=== PATIENT | male | born 1955 | race Caucasian/White ===

== ENCOUNTER 2018-01-29 18:15 | Outpatient (REF) | payer BC, MEDICAID, SELFPAY ==
[2018-01-31 10:20] LABS: PSA, Screening 3.4 ng/ml (0-4.5)
== END 2018-01-29 18:35 ==
LOC: NCHCN 18:15
PROVIDERS: PCP Family Medicine; Visit Provider Family Medicine
DX: R35.1 Nocturia (principal); Z12.5 Encounter for screening for malignant neoplasm of prostate
CPT/HCPCS: 84153

== ENCOUNTER 2018-05-16 13:00 | Outpatient (REF) | payer MEDICAID, SELFPAY ==
[2018-05-16 21:41] LABS: Anion Gap 6.4 mmol/L (3-11); BUN 16 mg/dL (7-18); CO2 32.6 mmol/L (21.0-32.0); CREATININE 0.99 mg/dL (0.70-1.30); Calcium 9.1 mg/dL (8.5-10.1); Chloride 100 mmol/L (98-107); Cholesterol 296 mg/dL (50-200); Glucose 90 mg/dL (70-100); HDL Cholesterol 55 mg/dL (40-60); LDL CHOLESTEROL 216 mg/dL (<100); Potassium 3.7 mmol/L (3.5-5.1); Sodium 139 mmol/L (136-145); Triglyceride 130 mg/dL (30-150)
[2018-05-19 09:58] LABS: PSA, Screening 2.6 ng/ml (0-4.5)
== END 2018-05-16 13:20 ==
LOC: NCHCN 13:00
PROVIDERS: PCP Family Medicine; Visit Provider Family Medicine
DX: Z00.00 Encounter for general adult medical examination without abnormal findings (principal); Z12.5 Encounter for screening for malignant neoplasm of prostate; Z13.1 Encounter for screening for diabetes mellitus; Z13.6 Encounter for screening for cardiovascular disorders
CPT/HCPCS: 80048; 80061; 83721; 84153

== ENCOUNTER 2019-05-20 09:37 | Outpatient (REF) | payer MEDICAID, SELFPAY ==
[2019-05-20 21:33] LABS: ALT 34 U/L (16-63); AST 30 U/L (15-37); Albumin 4.5 g/dL (3.4-5.0); Alkaline Phosphatase 45 U/L (46-116); Anion Gap 5.7 mmol/L (3-11); BUN 20 mg/dL (7-18); Bilirubin, Total 0.5 mg/dL (0.2-1.0); CO2 33.3 mmol/L (21.0-32.0); CREATININE 0.96 mg/dL (0.70-1.30); Calcium 9.5 mg/dL (8.5-10.1); Calculated LDL 227 mg/dL (<100); Chloride 102 mmol/L (98-107); Cholesterol 310 mg/dL (<200); Glucose 54 mg/dL (74-106); HDL Cholesterol 50 mg/dL (40-60); Potassium 4.1 mmol/L (3.5-5.1); Sodium 141 mmol/L (136-145); Total Protein 7.7 g/dL (6.4-8.2); Triglyceride 169 mg/dL (<150)
[2019-05-22 10:06] LABS: PSA, Screening 2.6 ng/mL (0.0-4.5)
== END 2019-05-20 09:57 ==
LOC: NCHCN 09:37
PROVIDERS: PCP Family Medicine; Visit Provider Family Medicine
DX: R35.1 Nocturia (principal); Z12.5 Encounter for screening for malignant neoplasm of prostate; F10.10 Alcohol abuse, uncomplicated; Z00.00 Encounter for general adult medical examination without abnormal findings
CPT/HCPCS: 80053; 80061; 84153

== ENCOUNTER 2019-07-21 08:24 | Outpatient (REF) | payer MEDICAID, SELFPAY ==
[2019-07-21 20:49] LABS: ALT 44 U/L (16-63); AST 27 U/L (15-37); Albumin 4.4 g/dL (3.4-5.0); Alkaline Phosphatase 42 U/L (46-116); Anion Gap 5.4 mmol/L (3-11); BUN 17 mg/dL (7-18); Bilirubin, Total 0.4 mg/dL (0.2-1.0); CO2 30.6 mmol/L (21.0-32.0); CREATININE 1.02 mg/dL (0.70-1.30); Calcium 9.2 mg/dL (8.5-10.1); Calculated LDL 97 mg/dL (<100); Chloride 103 mmol/L (98-107); Cholesterol 173 mg/dL (<200); Glucose 89 mg/dL (74-106); HDL Cholesterol 51 mg/dL (40-60); Sodium 139 mmol/L (136-145); Total Protein 7.2 g/dL (6.4-8.2); Triglyceride 129 mg/dL (<150)
== END 2019-07-21 08:44 ==
LOC: NCHCN 08:24
PROVIDERS: PCP Family Medicine; Visit Provider Family Medicine
DX: E78.5 Hyperlipidemia, unspecified (principal)
CPT/HCPCS: 80053; 80061

== ENCOUNTER 2020-05-19 11:51 | Outpatient (REF) | payer MEDICAID, SELFPAY ==
[2020-05-19 14:18] LABS: ALT 45 U/L (16-63); AST 28 U/L (15-37); Albumin 4.1 g/dL (3.4-5.0); Alkaline Phosphatase 38 U/L (46-116); Anion Gap 8.7 mmol/L (3-11); BUN 22 mg/dL (7-18); Bilirubin, Total 0.6 mg/dL (0.2-1.0); CO2 28.3 mmol/L (21.0-32.0); Calcium 9.2 mg/dL (8.5-10.1); Calculated LDL 108 mg/dL (<100); Chloride 103 mmol/L (98-107); Cholesterol 188 mg/dL (<200); Glucose 81 mg/dL (74-106); HDL Cholesterol 64 mg/dL (40-60); Potassium 4.2 mmol/L (3.5-5.1); Sodium 140 mmol/L (136-145); Triglyceride 82 mg/dL (<150)
[2020-05-19 22:39] LABS: PSA, Screening 2.9 ng/mL (0.0-4.5)
== END 2020-05-19 11:52 | disposition home or self-care (01) ==
LOC: NCHCN 11:51
PROVIDERS: PCP Family Medicine; Visit Provider Family Medicine
DX: E78.5 Hyperlipidemia, unspecified (principal); F10.10 Alcohol abuse, uncomplicated; Z12.5 Encounter for screening for malignant neoplasm of prostate
CPT/HCPCS: 80053; 80061; 84153

== ENCOUNTER 2020-10-24 10:31 | Emergency (ER) | payer MEDICARE, OTHER, MEDICAID, SELFPAY ==
[2020-10-24 10:38] VITALS: BP 126/75; PULSE 69; RESP 14; TEMP 36.7; O2SAT 99
--- NOTE | 2020-10-24 10:45 | DI.RAD_ITS ---
Exam(s) XR RIBS LT W PA LAT CHEST CLINICAL HISTORY: left chest pain s/p fall. COMPARISON: No exams were available for comparison FINDINGS: LUNGS: Clear. No pleural abnormality seen. HEART: Normal. MEDIASTINUM: Normal. BONES: There is minimally displaced fracture of the left 10th rib.. No bony destructive lesion is se en. OTHER FINDINGS: None. IMPRESSION: 1. 10th rib fracture. 2. No acute pulmonary findings.
--- NOTE | 2020-10-24 10:50 | ED.GENADUL_ITS ---
Discharge Plan Disposition Patient Disposition: HOME Condition: Stable Discharge Details Clinical Impression: Fracture of rib Primary Care Provider: Jorge Pfeiffer ED Provider: Efren Curtis Home Meds and New Rx's Prescriptions: New oxycodone 5 mg tablet 5 mg PO Q6H PRNQty: 12 RF: 0 Continued atorvastatin 10 mg Tablet 10 mg PO DAILY RF: 0 escitalopram oxalate 5 mg Tablet 5 mg PO DAILY RF: 0 Discharge Instructions Instructions: Rib Fracture (ED) Additional Instructions: You broke the left 9th and 10th ribs follow up with your primary care provider within 1 week take 1000mg tylenol and 600mg ibuprofen every 6 hours as needed for pain, if you need additional pain relief take 1 oxycodone. Do not drink alcohol or drive if you take this medicine if you feel more ill, have difficulty breathing or fevers return to the emergency department Medical Decision Making 65 yo male with hx of hld denies being on anticoagulation comes in with left sided chest pain after a fall. He states yesterday he was in a canoe and his fishing pierce fell over, he went to grab it and fell striking his left chest in the mid axillary line on the side of the seat. Denies preceding pain to the fall. He still has pain over the 2-5 ribs in the mid axillary line on the left and is tender to touch in this area as well. He has no headpain, neck tenderness, abdomen tenderness. Clear lungs and no murmurs. Suspect rib contusion but will xray to evaluate for fracture and less likely ptx. xray shows likely left 9thand 10th rib fracture. No pneumothorax. Also noted tiny metallic density over lower thoracic wall but has no open areas of skin so do not feel this is an acute foreign body. HE is stable and is comfortable with outpatient management. Advised to f/u with pcp and return precautions given Differential Diagnosis Differential Diagnosis: contusion, fracture, pneumothorax Imaging Data Radiologic Study: Attestation: I personally reviewed and interpreted this imaging study as follows: Imaging: X-Ray Radiologist's impression: IMPRESSION: 1. Mild buckling of the left 10th rib worrisome for a minimally displaced rib fracture. Mild deformity of lateral left 9th rib may also be subtle fracture. Acuity is uncertain. Correlate with focal tenderness. If clinically indicated, CT scan can be obtained to better define. 2. Tiny metallic density projecting over the soft tissues of the lower thoracic wall. May be a small metallic foreign body within the soft tissues. HPI General Mode of arrival: ambulatory . Date/Time Provider Initiated Documentation: 10/24/20 10:45 . Limitations to Documentation: no limitations . Information obtained by: patient . History of Present Illness 65 year old M presents to the emergency department with the chief complaint of left sided chest pain s/p fall, described as moderate, Quality is described as aching, and is localized to the chest. Patient started experiencing this day(s) (1) and it has been constant. No relieving factors improve symptom(s), Other factors that worsen symptoms (pushing on the chest) . Patient notes no other symptoms.. Patient did receive the following treatments prior to arrival, none Related Data Home Medications Medication Instructions Recorded Confirmed atorvastatin 10 mg PO DAILY 10/24/20 10/24/20 escitalopram oxalate 5 mg PO DAILY 10/24/20 10/24/20 oxycodone 5 mg PO Q6H PRN #12 tab 10/24/20 Previous Rx's Medication Instructions Recorded oxycodone 5 mg PO Q6H PRN #12 tab 10/24/20 Allergies Allergy/AdvReac Type Severity Reaction Status Date / Time No Known Allergies Allergy Unverified 10/24/20 10:40 General Stated Complaint: Chest/Rib GAURAV: 3 Review of Systems All systems reviewed & are unremarkable except as noted in HPI and below Constitutional Constitutional: Denies chills, Denies fever(s) and Denies weakness Cardiovascular Cardiovascular: Denies dyspnea Respiratory Respiratory: Denies cough and Denies dyspnea Gastrointestinal Gastrointestinal: Denies abdominal pain, Denies nausea and Denies vomiting Musculoskeletal Musculoskeletal: Denies joint swelling Neurologic Neurologic: Denies weakness [facility] Social History Smoking/Tobacco Use Status: Never Smoking risk assessment performed?: Yes Alcohol Intake: current Alcohol Intake frequency: 0-2 drinks per day Alcohol type: beer Drug use: Never Substance use type: does not use Do you feel safe at home: Yes Do you feel safe in your relationship?: Yes Exam Const General: no acute distress Orientation: alert HENMT Head: normal to inspection Ears: external ears normal General nose exam: external nose normal Mouth: moist mucous membranes Eyes General: appearance normal, both eyes and all related structures Neck Neck: normal visual inspection Chest Chest: normal inspection of the chest Resp Effort & Inspection: normal respiratory effort and able to speak in complete sentences Cardio Rate: regular rate Skin General skin exam: no rashes or lesions noted Neuro General: patient alert and patient oriented x3 Extrem General: normal to inspection Psych Mental Status: mental status grossly normal Course Vital Signs Vital signs: Vital Signs Temperature 36.7 C 10/24/20 10:38 Pulse 69 10/24/20 10:38 Respiratory Rate 14 10/24/20 10:38 Blood Pressure 126/75 10/24/20 10:38 Pulse Oximetry 99 10/24/20 10:38 Temperature 36.7 C 10/24/20 10:38 Temperature Source Skin 10/24/20 10:38 Pulse 69 10/24/20 10:38 Respiratory Rate 14 10/24/20 10:38 Respiratory Effort Non-Labored 10/24/20 10:43 Respiratory Depth Normal 10/24/20 10:43 Respiratory Pattern Normal 10/24/20 10:43 Blood Pressure 126/75 10/24/20 10:38 Blood Pressure Position Supine 10/24/20 10:38 Pulse Oximetry 99 10/24/20 10:38 Oxygen Delivery Method Room Air 10/24/20 10:38 Oxygen Flow Rate 0 10/24/20 10:38 Pain Level 7 10/24/20 10:43
[2020-10-24] MEDS: Ibuprofen 600 MG TAB PO (10:54)
--- NOTE | 2020-10-24 11:31 | DI.VRAD_ITS ---
PROCEDURE INFORMATION: Exam: XR Left Ribs Exam date and time: 10/24/2020 10:52 AM Age: 65 years old Clinical indication: Injury or trauma; Blunt trauma (contusions or hematomas); Rib area, left side; Injury details: Fall. Bb placed on site of pain - lt - ant TECHNIQUE: Imaging protocol: XR Left ribs. Views: 2 views. COMPARISON: No relevant prior studies available. FINDINGS: Bones/joints: Mild buckling of the left 10th rib worrisome for a minimally displaced rib fracture. Mild deformity of the lateral left 9th rib. Soft tissues: Tiny metallic density projecting over the soft tissues of the lower thoracic wall. IMPRESSION: 1. Mild buckling of the left 10th rib worrisome for a minimally displaced rib fracture. Mild deformity of lateral left 9th rib may also be subtle fracture. Acuity is uncertain. Correlate with focal tenderness. If clinically indicated, CT scan can be obtained to better define. 2. Tiny metallic density projecting over the soft tissues of the lower thoracic wall. May be a small metallic foreign body within the soft tissues. PROCEDURE INFORMATION: Exam: XR Chest Exam date and time: 10/24/2020 10:52 AM Age: 65 years old Clinical indication: Injury or trauma; Blunt trauma (contusions or hematomas); Rib area, left side; Injury details: Fall. Bb placed on site of pain - lt - ant TECHNIQUE: Imaging protocol: XR of the chest. Views: 2 views. COMPARISON: No relevant prior studies available. FINDINGS: Lungs: Dense 6 mm nodule at the right base, probably a granuloma. No airspace consolidations. Pleural spaces: No significant pleural effusions. No pneumothorax. Heart/Mediastinum: Cardiomediastinal silhouette is unremarkable. Bones/joints: Mild dextroconvexity of the upper thoracic spine which may be related to mild scoliosis. Mild multilevel spondylosis. Mild buckling of the left 10th rib worrisome for a minimally displaced rib fracture. IMPRESSION: 1. No acute pulmonary disease. 2. Dense right base nodule, probably a granuloma. 3. See separately dictated rib radiographs report. Dictated and Authenticated by: Leandro Walker MD. Ordering:STORM Schwartz MD
== END 2020-10-24 12:01 | disposition home or self-care (01) ==
PROVIDERS: Emergency Provider Emergency Medicine; PCP Family Medicine
DX: S22.42XA Multiple fractures of ribs, left side, initial encounter for closed fracture (principal); W01.198A Fall on same level from slipping, tripping and stumbling with subsequent striking against other object, initial encounter
CPT/HCPCS: 99283; 71046; 71100

== ENCOUNTER 2021-05-23 14:43 | Outpatient (REF) | payer MEDICARE, OTHER, MEDICAID, SELFPAY ==
[2021-05-23 17:25] LABS: ALT 34 U/L (16-63); AST 23 U/L (15-37); Albumin 4.1 g/dL (3.4-5.0); Alkaline Phosphatase 41 U/L (46-116); Anion Gap 7.7 mmol/L (3-11); BUN 18 mg/dL (7-18); Bilirubin, Total 0.5 mg/dL (0.2-1.0); CO2 29.3 mmol/L (21.0-32.0); CREATININE 0.9 mg/dL (0.70-1.30); Calcium 8.9 mg/dL (8.5-10.1); Chloride 105 mmol/L (98-107); Glucose 89 mg/dL (74-106); Potassium 4.3 mmol/L (3.5-5.1); Sodium 142 mmol/L (136-145); Total Protein 6.9 g/dL (6.4-8.2)
[2021-05-24 17:39] LABS: PSA, Screening 3.1 ng/mL (<=4.5)
== END 2021-05-23 14:44 | disposition home or self-care (01) ==
LOC: NCHCN 14:43
PROVIDERS: PCP Family Medicine; Visit Provider Family Medicine
DX: E78.5 Hyperlipidemia, unspecified (principal); R35.1 Nocturia; Z12.5 Encounter for screening for malignant neoplasm of prostate
CPT/HCPCS: 80053; 84153

== ENCOUNTER 2022-05-24 10:16 | Outpatient (REF) | payer MEDICARE, SELFPAY ==
[2022-05-24 15:11] LABS: ALT 37 U/L (16-63); AST 30 U/L (15-37); Alkaline Phosphatase 57 U/L (46-116); BUN 19 mg/dL (7-18); Bilirubin, Total 0.3 mg/dL (0.2-1.0); CREATININE 0.9 mg/dL (0.70-1.30); Calcium 9.3 mg/dL (8.5-10.1); Calculated LDL 90 mg/dL (<100); Chloride 104 mmol/L (98-107); Cholesterol 174 mg/dL (<200); Estimated GFR 93.61 (mL/min/1.73m2); Glucose 87 mg/dL (74-106); HDL Cholesterol 64 mg/dL (40-60); Potassium 4.3 mmol/L (3.5-5.1); Sodium 143 mmol/L (136-145); Total Protein 7.6 g/dL (6.4-8.2); Triglyceride 102 mg/dL (<150)
[2022-05-24 22:55] LABS: PSA, Screening 4.8 ng/mL (<=4.5)
== END 2022-05-24 10:17 | disposition home or self-care (01) ==
LOC: NCHCN 10:16
PROVIDERS: PCP Family Medicine; Visit Provider Family Medicine
DX: E78.5 Hyperlipidemia, unspecified (principal); N40.0 Benign prostatic hyperplasia without lower urinary tract symptoms; Z12.5 Encounter for screening for malignant neoplasm of prostate
CPT/HCPCS: 80053; 80061; 84153

== ENCOUNTER 2022-06-06 01:49 | Outpatient (CLI) | payer MEDICARE, SELFPAY ==
--- NOTE | 2022-06-06 08:00 | DI.US_ITS ---
Exam(s) US AAA SCREENING EXAM: US AAA SCREENING CLINICAL HISTORY: [facility], Z00.00 COMPARISON: No exams were available for comparison FINDINGS: Abdominal Aorta: Proximal: 2.9 x 2.9 cm Mid: 2.1 x 2.1 cm Distal: 1.9 x 1.4 cm Iliac's: Right: 1.1 x 1.5 cm Left: 1 x 1 cm No significant atherosclerotic disease is seen. IMPRESSION: No evidence of abdominal aortic aneurysm. DATA REPOSITORY:
== END 2022-06-06 02:09 ==
LOC: DI 01:49
PROVIDERS: PCP Family Medicine; Visit Provider Family Medicine
DX: Z00.00 Encounter for general adult medical examination without abnormal findings (principal)
CPT/HCPCS: 76706

== ENCOUNTER 2022-06-20 15:30 | Outpatient (REF) | payer MEDICARE, SELFPAY ==
--- OUTSIDE RECORDS SUMMARY | 2022-06-20 15:35 | XMS_ITS | CCD ---
Author Name Unknown Address [address] [place] [address] [id number] Organization Unknown Address [address] [place] [address] [phone] Care Team Providers Care Itinerant Teacher Assistant Name Role Phone TRINA STREETER Attending Physician [phone] Rounding (Secondary) Physic milton [phone] Vital Signs Unknown or Not Available. Allergies Allergy Code Allergy Type Reaction Status No Known Allergies 0 No known allergies Active Procedures Unknown or Not Available. History of Immunizations Unknown or Not Available. Problems Unknown or Not Available. Results Unknown or Not Available. Active Medications Unknown or Not Available. Medications Administered During Visit Unknown or Not Available. Encounters Encounter Diagnosis Diagnosis Code Start Date Injury of tendon of the rotator cuff of shoulder [id number] 01/09/2022 Social History Smoking Status Code Start Date End Date Never smoker [id number] Patient Decision Aids Unknown or Not Available. Discharge Instructions You were admitted to [facility] on 01/09/2022 09:16 with a principal diagnosis of Unspecified injury of muscle(s) and tendon(s) of the rotator cuff of left shoulder, initial encounter You were discharged from [facility] on 01/09/2022 00:00 Should you have any questions prior to discharge, please contact a member of your healthcare team. If you have left the hospital and have any questions, please contact your primary care physician. Chief Complaint and Reason For Visit Unknown or Not Available. Function Status Unknown or Not Available. Plan of Care Unknown or Not Available. Referral/Transition of Care Unknown or Not Available.
--- OUTSIDE RECORDS SUMMARY | 2022-06-20 15:35 | XMS_ITS | CCD ---
Author Name Unknown Address [address] [place] [address] [id number] Organization Unknown Address [address] [place] [address] [phone] Care Team Providers Care Supervisor Long Goods Name Role Phone MARY VANESSA Attending Physician [phone] MARY VANESSA Rounding (Secondary) Physician [phone] Vital Signs Unknown or Not Available. Allergies [...] Encounters Encounter Diagnosis Diagnosis Code Start Date Full thickness rotator cuff tear [id number] 03/23/2022 Social History Smoking Status Code Start Date End Date Never smoker [id number] Patient Decision Aids Unknown or Not Available. Discharge Instructions You were admitted to [facility] on 03/23/2022 00:33 with a principal diagnosis of Complete rotator cuff tear or rupture of left shoulder, not specified as traumatic You were discharged from [facility] on 03/23/2022 00:34 Should you have any questions prior to [...]
--- OUTSIDE RECORDS SUMMARY | 2022-06-20 15:35 | XMS_ITS | CCD ---
Author Name Unknown Address [address] [place] [address] [phone] Organization Unknown Address [address] [place] [address] [phone] Care Team Providers Care Senior Javascript Developer Name Role Phone TRINA STREETER Attending Physician [phone] Vital Signs Unknown or Not Available. Allergies [...] Encounters Encounter Diagnosis Diagnosis Code Start Date Complete rotator cuff tear o r rupture of left shoulder, not specified as traumatic [id number] 01/26/2022 Social History Smoking Status Code Start Date End Date Never smoker [id number] Patient Decision Aids Unknown or Not Available. Discharge Instructions You were admitted to [facility] on 01/26/2022 08:40 with a principal diagnosis of Complete rotator cuff tear or rupture of left shoulder, not specified as traumatic You were discharged from [facility] on 01/26/2022 08:40 Should you have any questions prior to discharge, please contact a member of your healthcare team. If you have left the hospital and have any questions, please contact your primary care physician. Chief Complaint and Reason For Visit Chief Complaint Date of Onset LT SHOULDER PAIN Function Status Unknown or Not Available. Plan of Care Unknown or Not Available. Referral/Transition of Care Unknown or Not Available.
--- OUTSIDE RECORDS SUMMARY | 2022-06-20 15:35 | XMS_ITS | CCD ---
Author Name Unknown Address [address] [place] [address] [id number] Organization Unknown Address [address] [place] [address] [phone] Care Team Providers Care Elementary Tutor Name Role Phone MARY VANESSA Attending Physician [phone] MARY VANESSA Rounding (Secondary) Physician [phone] Vital Signs Unknown or Not Available. Allergies [...] Start Date Full thickness rotator cuff tear [id number] 01/30/2022 Social History Smoking Status Code Start Date End Date Never smoker [id number] Patient Decision Aids Unknown or Not Available. Discharge Instructions You were admitted to [facility] on 01/30/2022 08:54 with a principal diagnosis of Complete rotator cuff tear or rupture of left shoulder, not specified as traumatic You were discharged from [facility] on 01/30/2022 00:00 Should you have any questions prior [...]
--- OUTSIDE RECORDS SUMMARY | 2022-06-20 15:35 | XMS_ITS | CCD ---
Author Name Unknown Address [address] [place] [address] [id number] Organization Unknown Address [address] [place] [address] [id number] Care Team Providers Care Electric Golf Cart Repairer Name Role Phone MARY VANESSA Attending Physician [phone] Vital Signs Vital Sign Value Unit Date/Time Recent/Initial ? BMI (Body Mass Index) 23.87 kg/m^2 03/09/2022 09: 34 Initial VS Weight Measured 164 lbs 03/09/2022 09:34 Ini tial VS Height 69.5 in 03/09/2022 09:34 Initial VS BSA (Body Surface Area) 1.91 m^2 03/09/2022 0 9:34 Initial VS BP Systolic 111 mmHg 03/23/2022 17:58 Initial VS BP Diastolic 72 mmHg 03/23/2022 17:58 Initia l VS Respiratory Rate 16 bpm 03/23/2022 17:58 In itial VS Heart Rate 72 bpm 03/23/2022 17:58 Initial VS O2 % BldC Oximetry 100 % 03/23/2022 17:58 Initial VS Body Temperature 36.1 degrees 03/23/2022 17:58 In itial VS Allergies Allergy Code Allergy Type Reaction Status No Known Allergies 0 No known allergies Active Procedures Procedure Code Procedure Type Date Repair, Ruptured Musculotendinous Cuff; Chronic 29110 CPT 03/23/2022 Injection Anesthetic Agent a nd/or Steroid; Brachial Plexus Including Imaging Guidance When Performed 10440 CPT 03/23/2022 Anesthesia, Nerves/Muscles/T endons/Fascia & Bursae, Shoulder/Axilla 62038 CPT 03/23/2022 History of Immunizations Unknown or Not Available. Problems Unknown or Not Available. Results Unknown or Not Available. Active Medications Medication Code Dose Units Frequency Route Modificatio n Start Date/Time ONDANSETRON INJ SDV: 4MG/2ML 2269791 4 MG PRN IN PACU X1 IVP 12:18 Medications Administered During Visit Medication Dose Units Frequency Route Date/Time of Last Dose LACTATED RINGERS 1000ML 1000 ML X1 IV 03/23/2022 09:19 CeFAZolin IVPB FROZEN PREMIX : 2GM/100ML 2 GM X1 IVPB 03/23/2022 09:4 0 MIDAZOLAM INJ SDV: 2MG/2ML 2 MG X1 IVP 03/23/2022 09:11 MIDAZOLAM INJ SDV: 2MG/2ML 2 MG X1 IVP 03/23/2022 09:12 ACETAMINOPHEN INJ IVPB: 1000MG/100ML 1000 MG PRN IN PACU X1 IVPB 03/23/2022 12 :30 Encounters Encounter Diagnosis Diagnosis Code Start Date Complete rotator cuff tear o r rupture of left shoulder, not specified as traumatic [id number] 03/23/2022 Social History Smoking Status Code Start Date End Date Never smoker [id number] Patient Decision Aids Unknown or Not Available. Discharge Instructions You were admitted to [facility] on 03/23/2022 07:29 with a principal diagnosis of Complete rotator cuff tear or rupture of left shoulder, not specified as traumatic You had the following procedures done:Repair, Ruptured Musculotendinous Cuff; ChronicInjection Anesthetic Agent and/or Steroid; Brachial Plexus Including Imaging Guidance When PerformedAnesthesia, Nerves/Muscles/Tendons/Fascia & Bursae, Shoulder/Axilla You were discharged from [facility] on 03/23/2022 14:45 Should you have any questions prior to [...]
--- OUTSIDE RECORDS SUMMARY | 2022-06-20 15:36 | XMS_ITS | CCD ---
Author Name Unknown Address [address] [place] [address] [id number] Organization Unknown Address [address] [place] [address] [id number] Care Team Providers Care Head Refrigeration Engineer Name Role Phone MARY VANESSA Attending Physician [phone] MARY VANESSA Rounding (Secondary) Physician [phone] Vital Signs Unknown or Not Available. Allergies [...] Encounters Encounter Diagnosis Diagnosis Code Start Date Follow-up orthopedic assessment [id number] 05/01/2022 Social History Smoking Status Code Start Date End Date Never smoker [id number] Patient Decision Aids Unknown or Not Available. Discharge Instructions You were admitted to [facility] on 05/01/2022 00:00 with a principal diagnosis of Encounter for other orthopedic aftercare You were discharged from [facility] on 05/01/2022 00:00 Should you have any questions prior [...]
--- OUTSIDE RECORDS SUMMARY | 2022-06-20 15:36 | XMS_ITS | CCD ---
Author Name Unknown Address [address] [place] [address] [id number] Organization Unknown Address [address] [place] [address] [phone] Care Team Providers Care Drier Belt Conveyor Name Role Phone ILAN FERNANDEZ, VANE Judge Attending Physician [phone] ELIZABETH GALEANO Er Physician [phone] Vital Signs Unknown or Not Available. Allergies Allergy Code Allergy Type Reaction Status No Known Allergies 0 No known allergies Active Procedures Unknown or Not Available. History of Immunizations Unknown or Not Available. Problems Problem Code Start Date Resolved Date Status Depression [id number] 12/27/2021 Resolved Hypertension 04370104 12/27/2021 Resolved Results Unknown or Not Available. Active Medications Unknown or Not Available. Medications Administered During Visit Unknown or Not Available. Encounters Encounter Diagnosis Diagnosis Code Start Date Other chest pain R0789 08/27/2020 Social History Smoking Status Code Start Date End Date Never smoker [id number] Patient Decision Aids Unknown or Not Available. Discharge Instructions You were admitted to on 08/27/2020 13:55 with a principal diagnosis of Other chest pain You were discharged from on 08/27/2020 14:53 Should you have any questions prior to discharge, please contact a member of your healthcare team. If you have left the hospital and have any questions, please contact your primary care physician. Chief Complaint and Reason For Visit Chief Complaint Date of Onset RT RIB PAIN Function Status Unknown or Not Available. Plan of Care Unknown or Not Available. Referral/Transition of Care Unknown or Not Available.
--- OUTSIDE RECORDS SUMMARY | 2022-06-20 15:36 | XMS_ITS | CCD ---
Author Name Unknown Address [address] [place] [address] [id number] Organization Unknown Address [address] [place] [address] [id number] Care Team Providers Care Dispatcher Clerk Name Role Phone RENZO FERNANDEZ, RUSS Diaz Attending Physician [phone] Vital Signs Vital Sign Value Unit Date/Time Recent/Initial ? BP Systolic 107 mmHg 09/20/2020 12:54 Initial VS BP Diastolic 78 mmHg 09/20/2020 12:54 Initia l VS Respiratory Rate 16 bpm 09/20/2020 12:54 In itial VS Heart Rate 70 bpm 09/20/2020 12:54 Initial VS O2 % BldC Oximetry 97 % 09/20/2020 12:54 Initial VS BP Systolic 124 mmHg 09/20/2020 13:14 Most Re cent VS BP Diastolic 74 mmHg 09/20/2020 13:14 Most R ecent VS Respiratory Rate 16 bpm 09/20/2020 13:[address] Recent VS Heart Rate 71 bpm 09/20/2020 13:14 Most Rec ent VS O2 % BldC Oximetry 100 % 09/20/2020 13:14 Most Recent VS Allergies Allergy Code Allergy Type Reaction Status No Known Allergies 0 No known allergies Active Procedures Procedure Code Procedure Type Date Colsc Flx w/[place] [address] CPT 09/20/2020 History of Immunizations Unknown or Not Available. Problems Problem Code Start Date Resolved Date Status Depression 07199511 12/27/2021 Resolved Hypertension 13067950 12/27/2021 Resolved Results Unknown or Not Available. Active Medications Unknown or Not Available. Medications Administered During Visit Unknown or Not Available. Encounters Encounter Diagnosis Diagnosis Code Start Date Encounter for screening for malignant neoplasm o f colon Z1211 09/20/2020 Social History Smoking Status Code Start Date End Date Never smoker [id number] Patient Decision Aids Unknown or Not Available. Discharge Instructions You were admitted to [facility] 01 on 09/20/2020 10:25 with a principal diagnosis of Encounter for screening for malignant neoplasm of colon You had the following procedures done:Colsc Flx w/Rmvl Of Tumor Polyp Lesion Snare Tq You were discharged from [facility] on 09/20/2020 13:15 Should you have any questions prior to [...]
== END 2022-06-20 15:31 | disposition home or self-care (01) ==
LOC: NCHCN 15:30
PROVIDERS: PCP Family Medicine; Visit Provider Family Medicine
DX: N40.0 Benign prostatic hyperplasia without lower urinary tract symptoms (principal)
CPT/HCPCS: 84153

== ENCOUNTER → 2022-07-26 14:07 | Outpatient (BNVA) | payer MEDICARE, SELFPAY | PROVIDERS: PCP Family Medicine; Referring Provider Family Medicine; Visit Provider Nurse Practitioner Gerontology | DX: R97.20 Elevated prostate specific antigen [PSA] (principal); N40.1 Benign prostatic hyperplasia with lower urinary tract symptoms; R35.1 Nocturia | CPT/HCPCS: 51798; 99214 ==

== ENCOUNTER 2022-09-06 17:17 | Outpatient (REF) | payer MEDICARE, SELFPAY ==
[2022-09-06 21:17] LABS: Abs Immature Grans 0.02 10^3/uL (0.0-0.06); Absolute Basophil Count 0.04 10^3/uL (0.0-0.2); Absolute Eosinophil Count 0.07 10^3/uL (0.0-0.7); Absolute Lymphocyte Count 1.43 10^3/uL (1.2-3.4); Absolute Monocyte Count 0.94 10^3/uL (0.1-0.8); Absolute Neutrophil Count 5.12 10^3/uL (1.2-6.7); Basophils % 0.5; Eosinophils % 0.9; HCT 41.1 % (40.0-50.0); HGB 13.7 g/dL (13.5-17.5); Immature Grans % 0.3; Lymphocytes % 18.8; MCH 30.6 pg (27.0-33.0); MCHC 33.3 % (32.0-36.0); MCV 92 fL (80-95); MPV 10.4 fL (8.0-11.0); Monocytes % 12.3; Neutrophils % 67.2; Platelet Count 260 10^3/uL (130-400); RBC 4.48 10^6/uL (4.36-5.78); RDW 13.2 % (11.8-14.1); RDW-SD 44.8 fL; WBC 7.62 10^3/uL (4.4-10.8)
[2022-09-06 21:37] LABS: Anion Gap 5.9 mmol/L (3-11); BUN 15 mg/dL (7-18); CO2 30.1 mmol/L (21.0-32.0); CREATININE 0.9 mg/dL (0.70-1.30); Calcium 9.2 mg/dL (8.5-10.1); Chloride 108 mmol/L (98-107); Estimated GFR 93.61 (mL/min/1.73m2); Glucose 97 mg/dL (74-106); Sodium 144 mmol/L (136-145); TSH (W/Ref FT4) 1.65 uIU/mL (0.36-3.74)
[2022-09-10 09:16] LABS: Lyme Ab w Rflx to Lyme Confirm Negative (Negative)
[2022-09-11 15:39] LABS: Anaplasma phagocytophilum Negative (Negative); B. miyamotoi PCR Negative (Negative); Babesia divergens/MO-1 Negative (Negative); Babesia duncani Negative (Negative); Babesia microti Negative (Negative); Ehrlichia chaffeensis Negative (Negative); Ehrlichia ewingii/canis Negative (Negative); Ehrlichia muris eauclairensis Negative (Negative)
== END 2022-09-06 17:18 | disposition home or self-care (01) ==
LOC: NCHCN 17:17
PROVIDERS: PCP Family Medicine; Visit Provider Family Medicine
DX: R53.83 Other fatigue (principal); M06.4 Inflammatory polyarthropathy; M79.10 Myalgia, unspecified site
CPT/HCPCS: 80048; 87798; 84443; 85025; 86618

== ENCOUNTER 2022-10-31 20:17 | Outpatient (REF) | payer MEDICARE, SELFPAY ==
[2022-10-31 21:15] LABS: ESR 9 mm/hr (0-20)
[2022-10-31 21:17] LABS: ALT 27 U/L (16-63); AST 20 U/L (15-37); Albumin 3.6 g/dL (3.4-5.0); Alkaline Phosphatase 52 U/L (46-116); Anion Gap 4.4 mmol/L (3-11); BUN 17 mg/dL (7-18); Bilirubin, Total 0.7 mg/dL (0.2-1.0); C-Reactive Protein 1.99 mg/dL (0.0-0.3); CO2 32.6 mmol/L (21.0-32.0); Calcium 9.4 mg/dL (8.5-10.1); Chloride 104 mmol/L (98-107); Estimated GFR 82.49 (mL/min/1.73m2); Glucose 116 mg/dL (74-106); Potassium 3.9 mmol/L (3.5-5.1); Sodium 141 mmol/L (136-145); Total Protein 7.2 g/dL (6.4-8.2)
== END 2022-10-31 20:18 | disposition home or self-care (01) ==
LOC: NCHCN 20:17
PROVIDERS: PCP Family Medicine; Visit Provider Family Medicine
DX: M35.3 Polymyalgia rheumatica (principal); R74.01 Elevation of levels of liver transaminase levels
CPT/HCPCS: 80053; 85652; 86140

== ENCOUNTER 2022-11-30 13:25 | Outpatient (REF) | payer MEDICARE, SELFPAY ==
[2022-11-30 21:13] LABS: C-Reactive Protein 0.27 mg/dL (0.0-0.3)
[2022-12-05 14:07] LABS: ESR (LRH) 2 mm/hr
== END 2022-11-30 13:26 | disposition home or self-care (01) ==
LOC: NCHCN 13:25
PROVIDERS: PCP Family Medicine; Visit Provider Family Medicine
DX: M35.3 Polymyalgia rheumatica (principal)
CPT/HCPCS: 85652; 86140

== ENCOUNTER 2023-01-24 04:03 | Outpatient (CLI) | payer MEDICARE, SELFPAY ==
--- OUTSIDE RECORDS SUMMARY | 2023-01-24 04:04 | XMS_ITS | CCD ---
Author Name Unknown Address [address] [place] [address] [phone] Organization Unknown Address [address] [place] [address] [phone] Care Team Providers Care Enrollment Management Manager Name Role Phone MARY VANESSA Attending Physician [phone] MARY VANESSA Rounding (Secondary) Physician [phone] Vital Signs Unknown or Not Available. Allergies [...] Encounters Encounter Diagnosis Diagnosis Code Start Date Pain in left shoulder V35945 11/06/2022 Social History Smoking Status Code Start Date End Date Never smoker [id number] Patient Decision Aids Unknown or Not Available. Discharge Instructions You were admitted to [facility] on 11/06/2022 16:20 with a principal diagnosis of Pain in left shoulder You were discharged from [facility] on 11/06/2022 14:25 Should you have any questions prior to [...]
--- OUTSIDE RECORDS SUMMARY | 2023-01-24 04:05 | XMS_ITS | CCD ---
Author Name Unknown Address [address] [place] [address] [phone] Organization Unknown Address [address] [place] [address] [phone] Care Team Providers Care Electric Scoop Operator Name Role Phone MARY VANESSA Attending Physician [phone] MARY VANESSA Rounding (Secondary) Physician [phone] Vital Signs Unknown or Not Available. Allergies [...] Start Date Full thickness rotator cuff tear [id number] 03/23/2022 Social History Smoking Status Code Start Date End Date Never smoker [id number] Patient Decision Aids Unknown or Not Available. Discharge Instructions You were admitted to [facility] on 03/23/2022 00:33 with a principal diagnosis of Complete rotator cuff tear or rupture of left shoulder, not specified as traumatic You were discharged from [facility] on 03/23/2022 00:34 Should you have any [...]
--- OUTSIDE RECORDS SUMMARY | 2023-01-24 04:05 | XMS_ITS | CCD ---
Author Name Unknown Address [address] [place] [address] [phone] Organization Unknown Address [address], [place] [phone] Care Team Providers Care Grocery Buyer Name Role Phone MARY VANESSA Attending Physician [phone] MARY VANESSA Rounding (Secondary) Physician [phone] Vital Signs Unknown or Not Available. Allergies [...] Encounters Encounter Diagnosis Diagnosis Code Start Date Postprocedural state finding [id number] Social History Smoking Status Code Start Date End Date Never smoker [id number] Patient Decision Aids Unknown or Not Available. Discharge Instructions You were admitted to [facility] on 07/31/2022 00:00 with a principal diagnosis of Other specified postprocedural states You were discharged from [facility] on 07/31/2022 00:00 Should you have any questions prior [...]
--- OUTSIDE RECORDS SUMMARY | 2023-01-24 04:05 | XMS_ITS | CCD ---
Author Name Unknown Address [address] [place] [address] [phone] Organization Unknown Address [address] [place] [address] [phone] Care Team Providers Care Optics Engineer Name Role Phone MARY VANESSA Attending Physician [phone] Vital Signs Vital Sign Value Unit Date/Time [...] Type Date Repair, Ruptured Musculotendinous Cuff; Chronic 66531 CPT 03/23/2022 Injection Anesthetic Agent a nd/or Steroid; Brachial Plexus Including Imaging Guidance When Performed 77514 CPT 03/23/2022 Anesthesia, Nerves/Muscles/T endons/Fascia & Bursae, Shoulder/Axilla 11178 CPT 03/23/2022 History of Immunizations Unknown or Not Available. Problems Unknown or Not Available. Results Unknown or Not Available. Active Medications Medications Administered During Visit Medication Dose Units Frequency Route Date/Time of Last Dose LACTATED RINGERS 1000ML 1000 ML X1 03/23/2022 09:19 CeFAZolin IVPB FROZEN PREMIX : 2GM/100ML 2 GM X1 03/23/2022 09:4 0 MIDAZOLAM INJ SDV: 2MG/2ML 2 MG X1 IVP 03/23/2022 09:11 MIDAZOLAM INJ SDV: 2MG/2ML 2 MG X1 IVP 03/23/2022 09:12 ACETAMINOPHEN INJ IVPB: 1000MG/100ML 1000 MG PRN IN PACU X1 03/23/2022 12 :30 Encounters Encounter Diagnosis Diagnosis Code Start Date Complete rotator cuff tear o r rupture of left shoulder, not specified as traumatic [id number] 03/23/2022 Social History Smoking Status Code Start Date End Date Never smoker [id number] Patient Decision Aids Unknown or Not Available. Discharge Instructions You were admitted to [facility] on 03/23/2022 07:29 with a principal diagnosis of Complete rotator cuff tear or rupture of left shoulder, not specified as traumatic You had the following procedures done:Repair, Ruptured Musculotendinous Cuff; ChronicInjection Anesthetic Agent and/or Steroid; Brachial Plexus Including Imaging Guidance When PerformedAnesthesia, Nerves/Muscles/Tendons/Fascia & Bursae, Shoulder/Axilla You were discharged from [facility] on 03/23/2022 14:45 Should you have any [...]
--- OUTSIDE RECORDS SUMMARY | 2023-01-24 04:06 | XMS_ITS | CCD ---
Author Name Unknown Address [address] [place] [address] [phone] Organization Unknown Address [address] [place] [address] [phone] Care Team Providers Care Vocational Rehab Consultant Name Role Phone MARY VANESSA Attending Physician [phone] MARY VANESSA Rounding (Secondary) Physician [phone] Vital Signs Unknown or Not Available. Allergies [...] Start Date Full thickness rotator cuff tear 284345055 01/30/2022 Social History Smoking Status Code Start Date End Date Never smoker 994695917 Patient Decision Aids Unknown or Not Available. Discharge Instructions You were admitted to [facility] on 01/30/2022 08:54 with a principal diagnosis of Complete rotator cuff tear or rupture of left shoulder, not specified as traumatic You were discharged from [facility] on 01/30/2022 00:00 Should you have [...]
--- OUTSIDE RECORDS SUMMARY | 2023-01-24 04:06 | XMS_ITS | CCD ---
Author Name Unknown Address [address] [place] [address] [phone] Organization Unknown Address [address] [place] [address] [phone] Care Team Providers Care Geothermal Heat Pump Machinist Name Role Phone RENZO FERNANDEZ, RUSS Diaz Attending Physician [phone] Vital Signs Vital Sign Value Unit Date/Time [...] w/[place] [address] CPT 09/20/2020 History of Immunizations Unknown or Not Available. Problems Problem Code Start Date Resolved Date Status Depression 99770439 12/27/2021 Resolved Hypertension 30700493 12/27/2021 Resolved Results Unknown or Not Available. Active Medications Unknown or Not Available. Medications Administered During Visit Unknown or Not Available. Encounters Encounter Diagnosis Diagnosis Code Start Date Encounter for screening for malignant neoplasm o f colon Z1211 09/20/2020 Social History Smoking Status Code Start Date End Date Never smoker 533176035 Patient Decision Aids Unknown or Not Available. Discharge Instructions You were admitted to [facility] 01 on 09/20/2020 10:25 with a principal diagnosis of Encounter for screening for malignant neoplasm of colon You had the following procedures done:Colsc Flx w/Rmvl Of Tumor Polyp Lesion Snare Tq You were discharged from [facility] on 09/20/2020 13:15 Should you have any [...]
--- OUTSIDE RECORDS SUMMARY | 2023-01-24 04:06 | XMS_ITS | CCD ---
Author Name Unknown Address [address] [place] [address] [phone] Organization Unknown Address [address] [place] [address] [phone] Care Team Providers Care Grocery Clerk Selling Name Role Phone FERMÍN VALLE Attending Physician [phone] SORAYA CLIFFORD Er Physician [phone] DONNA Coombs Registered Nurse [phone] Vital Signs Vital Sign Value Unit Date/Time Recent/Initial ? BMI (Body Mass Index) 20.34 kg/m^2 12/27/2021 16: 07 Initial VS Weight Measured 150 lbs 12/27/2021 16:07 Ini tial VS Height 72 in 12/27/2021 16:07 Initial VS BSA (Body Surface Area) 1.86 m^2 12/27/2021 1 6:07 Initial VS BP Systolic 146 mmHg 12/27/2021 16:07 Initial VS BP Diastolic 75 mmHg 12/27/2021 16:07 Initia l VS Respiratory Rate 16 bpm 12/27/2021 16:07 In itial VS Heart Rate 72 bpm 12/27/2021 16:07 Initial VS O2 % BldC Oximetry 97 % 12/27/2021 16:07 Initial VS Body Temperature 36.7 degrees 12/27/2021 16:07 In itial VS BP Systolic 131 mmHg 12/27/2021 17:58 Most Re cent VS BP Diastolic 80 mmHg 12/27/2021 17:58 Most R ecent VS Respiratory Rate 18 bpm 12/27/2021 17:[address] Recent VS Heart Rate 65 bpm 12/27/2021 17:58 Most Rec ent VS O2 % BldC Oximetry 97 % 12/27/2021 17:58 Most Recent VS Allergies Allergy Code Allergy Type Reaction Status No Known Allergies 0 No known allergies Active Procedures Unknown or Not Available. History of Immunizations Unknown or Not Available. Problems Problem Code Start Date Resolved Date Status Depression 06030985 12/27/2021 Resolved Hypertension 25837679 12/27/2021 Resolved Results Unknown or Not Available. Active Medications Medications Administered During Visit Medication Dose Units Frequency Route Date/Time of Last Dose ACETAMINOPHEN TABLET: 325MG 975 MG X1 PO 12/27/2021 17:57 Encounters Encounter Diagnosis Diagnosis Code Start Date Unspecified dislocation of l eft shoulder joint, initial encounter [id number] 12/27/2021 Social History Smoking Status Code Start Date End Date Never smoker 479452950 Patient Decision Aids Unknown or Not Available. Discharge Instructions You were admitted to [facility] on 12/27/2021 15:51 with a principal diagnosis of Unspecified dislocation of left shoulder joint, initial encounter You were discharged from [facility] on 12/27/2021 18:05 Should you have any questions prior to discharge, please contact a member of your healthcare team. If you have left the hospital and have any questions, please contact your primary care physician. Chief Complaint and Reason For Visit Chief Complaint Date of Onset SHOULDER INJURY Function Status Unknown or Not Available. Plan of Care Unknown or Not Available. Referral/Transition of Care Unknown or Not Available.
--- OUTSIDE RECORDS SUMMARY | 2023-01-24 04:06 | XMS_ITS | CCD ---
Author Name Unknown Address [address] [place] [address] [phone] Organization Unknown Address [address] [place] [address] [phone] Care Team Providers Care Project Estimator Name Role Phone TRINA STREETER Attending Physician [phone] Vital Signs Unknown or Not Available. Allergies [...] of left shoulder, not specified as traumatic K88452 01/26/2022 Social History Smoking Status Code Start Date End Date Never smoker 403005299 Patient Decision Aids Unknown or Not Available. Discharge Instructions You were admitted to [facility] on 01/26/2022 08:40 with a principal diagnosis of Complete rotator cuff tear or rupture of left shoulder, not specified as traumatic You were discharged from [facility] on 01/26/2022 08:40 Should you have [...]
--- OUTSIDE RECORDS SUMMARY | 2023-01-24 04:06 | XMS_ITS | CCD ---
Author Name Unknown Address [address] [place] [address] [phone] Organization Unknown Address [address] [place] [address] [phone] Care Team Providers Care Boat Mechanic Name Role Phone ILAN FERNANDEZ, VANE Judge Attending Physician [phone] ELIZABETH GALEANO Er Physician 5 [phone] Vital Signs Unknown or Not Available. Allergies Allergy Code Allergy Type Reaction Status No Known Allergies 0 No known allergies Active Procedures Unknown or Not Available. History of Immunizations Unknown or Not Available. Problems Problem Code Start Date Resolved Date Status Depression 39456326 12/27/2021 Resolved Hypertension 14657812 12/27/2021 Resolved Results Unknown or Not Available. Active Medications Unknown or Not Available. Medications Administered During Visit Unknown or Not Available. Encounters Encounter Diagnosis Diagnosis Code Start Date Other chest pain R0789 08/27/2020 Social History Smoking Status Code Start Date End Date Never smoker 342468795 Patient Decision Aids Unknown or Not Available. Discharge Instructions You were admitted to [facility] on 08/27/2020 13:55 with a principal diagnosis of Other chest pain You were discharged from [facility] on 08/27/2020 14:53 Should you have any [...]
--- OUTSIDE RECORDS SUMMARY | 2023-01-24 04:06 | XMS_ITS | CCD ---
Author Name Unknown Address [address] [place] [address] [phone] Organization Unknown Address [address] [place] [address] [phone] Care Team Providers Care Automobile Upholsterer Apprentice Name Role Phone TRINA STREETER Attending Physician [phone] Rounding (Secondary) Physic milton [phone] Vital Signs Unknown or Not Available. Allergies [...] tendon of the rotator cuff of shoulder 560768675 01/09/2022 Social History Smoking Status Code Start Date End Date Never smoker 811810312 Patient Decision Aids Unknown or Not Available. Discharge Instructions You were admitted to [facility] on 01/09/2022 09:16 with a principal diagnosis of Unspecified injury of muscle(s) and tendon(s) of the rotator cuff of left shoulder, initial encounter You were discharged from [facility] on 01/09/2022 00:00 Should you have [...]
[2023-01-24 20:14] LABS: PSA, Diagnostic 8.6 ng/mL (<=4.5)
== END 2023-01-24 04:04 | disposition home or self-care (01) ==
PROVIDERS: PCP Family Medicine; Visit Provider Nurse Practitioner Gerontology
DX: N40.0 Benign prostatic hyperplasia without lower urinary tract symptoms (principal); R97.20 Elevated prostate specific antigen [PSA]
CPT/HCPCS: 36415; 84153

== ENCOUNTER → 2023-01-31 14:45 | Outpatient (BNVA) | payer MEDICARE, SELFPAY | PROVIDERS: PCP Family Medicine; Referring Provider Family Medicine; Visit Provider Nurse Practitioner Gerontology | DX: N40.0 Benign prostatic hyperplasia without lower urinary tract symptoms (principal); R97.20 Elevated prostate specific antigen [PSA] | CPT/HCPCS: 51798; 99213 ==

== ENCOUNTER → 2023-03-21 14:20 | Outpatient (BNVA) | payer MEDICARE, SELFPAY | PROVIDERS: PCP Family Medicine; Referring Provider Family Medicine; Visit Provider Nurse Practitioner Gerontology | DX: N40.1 Benign prostatic hyperplasia with lower urinary tract symptoms (principal); R35.1 Nocturia; R97.20 Elevated prostate specific antigen [PSA] | CPT/HCPCS: 99214 ==

== ENCOUNTER → 2023-04-19 08:43 | Outpatient (BNVA) | payer MEDICARE, SELFPAY | PROVIDERS: PCP Family Medicine; Referring Provider Family Medicine; Visit Provider Urology | DX: C61 Malignant neoplasm of prostate (principal); R97.20 Elevated prostate specific antigen [PSA] | CPT/HCPCS: 55700; 76872 ==

== ENCOUNTER 2023-04-19 09:16 | Outpatient (REF) | payer MEDICARE, SELFPAY ==
--- NOTE | 2023-04-19 09:20 | PROST_PTH ---
PATIENT: Rolando Brown LOC: [facility] U#:[id number] AGE/SX: 68/M ROOM: RE04/19/[address]: Derrick Blue MD : 1955 BED: DIS: 04/19/2023 SPEC #: [id number] RECD: 04/19/23 12:11 STATUS: SHAZIA RE #: [id number] JULIO CESAR: 04/19/23 09:[address]: Derrick Blue DEPT: Surgical Specimen RECD BY: Nickie Faith ENTERED: 04/19/23 12:13 SP TYPE: PROST OTHR DR: Jorge Pfeiffer Tissues: 1 - PROSTATE NEEDLE BIOPSY 2 - PROSTATE NEEDLE BIOPSY 3 - PROSTATE NEEDLE BIOPSY 4 - PROSTATE NEEDLE BIOPSY 5 - PROSTATE NEEDLE BIOPSY 6 - PROSTATE NEEDLE BIOPSY 7 - PROSTATE NEEDLE BIOPSY 8 - PROSTATE NEEDLE BIOPSY 9 - PROSTATE NEEDLE BIOPSY 10 - PROSTATE NEEDLE BIOPSY 11 - PROSTATE NEEDLE BIOPSY 12 - PROSTATE NEEDLE BIOPSY Procedures: GROSS AND MICRO LEVEL 4 IMMUNOPEROXIDASE STAIN Comments: [id number]
== END 2023-04-19 09:17 | disposition home or self-care (01) ==
LOC: LBN 09:16
PROVIDERS: PCP Family Medicine; Visit Provider Urology
DX: C61 Malignant neoplasm of prostate (principal)
CPT/HCPCS: 88305; 88361

== ENCOUNTER → 2023-05-03 10:46 | Outpatient (BNVA) | payer MEDICARE, SELFPAY | PROVIDERS: PCP Family Medicine; Referring Provider Family Medicine; Visit Provider Urology | DX: C61 Malignant neoplasm of prostate (principal) | CPT/HCPCS: 99215 ==

== ENCOUNTER 2023-05-21 12:39 | Outpatient (REF) | payer MEDICARE, SELFPAY ==
[2023-05-21 15:03] LABS: ALT 24 U/L (16-63); AST 20 U/L (15-37); Albumin 3.9 g/dL (3.4-5.0); Alkaline Phosphatase 46 U/L (46-116); BUN 18 mg/dL (7-18); Bilirubin, Total 0.8 mg/dL (0.2-1.0); CREATININE 0.9 mg/dL (0.70-1.30); Calcium 9.2 mg/dL (8.5-10.1); Calculated LDL 103 mg/dL (<100); Chloride 102 mmol/L (98-107); Cholesterol 194 mg/dL (<200); Estimated GFR 93.03 (mL/min/1.73m2); Glucose 107 mg/dL (74-106); HDL Cholesterol 69 mg/dL (40-60); Potassium 3.8 mmol/L (3.5-5.1); Sodium 140 mmol/L (136-145); Total Protein 7.1 g/dL (6.4-8.2); Triglyceride 110 mg/dL (<150)
== END 2023-05-21 12:40 | disposition home or self-care (01) ==
LOC: NCHCN 12:39
PROVIDERS: PCP Family Medicine; Referring Provider Family Medicine; Visit Provider Family Medicine
DX: E78.5 Hyperlipidemia, unspecified (principal)
CPT/HCPCS: 80053; 80061

== ENCOUNTER → 2023-05-22 03:37 | Outpatient (CLI) | payer MEDICARE, SELFPAY ==
--- NOTE | 2023-05-22 07:15 | DI.NM_ITS ---
Exam(s) NM BONE SCAN WHOLE BODY GRP EXAM: NM BONE SCAN WHOLE BODY GRP CLINICAL HISTORY: baseline study,new dx prostate cancer,?METS,C61. TECHNIQUE: Injected Dose: 27 mCi Tc-99m MDP Delayed Images: 2-3 hours. COMPARISON: No exams were available for comparison FINDINGS: Symmetric axial uptake. Bilateral renal excretion is identified. There is mild increased radiotracer uptake in L5 relative to the rest of the lumbar spine. There are degenerative changes seen in the ri ght knee and the shoulders bilaterally. IMPRESSION: 1. Mild increased uptake in the L5 vertebral body. There are no priors for comparison. Correlation with plain films or cross-sectional imaging is recommended. 2. Otherwise no suspicious radiotracer uptake is seen in the axial or appendicular skeleton. DATA REPOSITORY:
== END ==
PROVIDERS: PCP Family Medicine; Visit Provider Urology
DX: C61 Malignant neoplasm of prostate (principal); R93.7 Abnormal findings on diagnostic imaging of other parts of musculoskeletal system; Z12.89 Encounter for screening for malignant neoplasm of other sites
CPT/HCPCS: 78306

== ENCOUNTER → 2023-05-24 15:26 | Outpatient (BNVA) | payer MEDICARE, SELFPAY | PROVIDERS: PCP Family Medicine; Referring Provider Family Medicine; Visit Provider Urology | DX: C61 Malignant neoplasm of prostate (principal) | CPT/HCPCS: 99213 ==

== ENCOUNTER 2023-06-19 12:54 | Outpatient (CLI) | payer MEDICARE, SELFPAY | END 2023-06-19 12:55 | disposition home or self-care (01) | LOC: LBO 12:55 | PROVIDERS: PCP Family Medicine; Visit Provider Radiology Radiation Oncology | DX: C61 Malignant neoplasm of prostate (principal) | CPT/HCPCS: 36415; 84153 ==

== ENCOUNTER 2023-09-25 02:25 | Outpatient (CLI) | payer MEDICARE, SELFPAY ==
--- OUTSIDE RECORDS SUMMARY | 2023-09-25 02:29 | XMS_ITS ---
Author Organization Unknown Address [address] [place] [address] [phone] Phone Care Team Providers Care Manager Care Name Role Phone DONNA GONZALEZ Registered Nurse Unavailable LEONARD Marcial Attending Unavailable DARRIN [facility] Unavailable CHRISTIANO Marcial Primary Unavailable UNLISTED PROVIDER - REQUESTED Xhandoff Un available Results XR HUMERUS 2V LT* - Complete d: 12/27/2021 16:47 LOINC: [place], [place] [address] PACS TARGET WORKER REPORT Patient Name: CRUZ HESTER MRN: Sex: : Age: [id number] M 1955 66 Account: Accession: Admit: StayType: [id number] 12/27/2021 E/R Ordered: Order ID: Submitted: Ordering Provider: 12/27/2021 16:19 [id number] SORAYA GONZALEZ Completed: Technologist: Resulted: 12/27/2021 16:47 DRS 12/27/2021 16:55 Study Description: XR HUMERUS 2V LT* Study Reason: Trauma TECHNIQUE: 2D digital imaging was performed. COMPARISON: No exams were available for comparison FINDINGS: NUMBER OF VIEWS: 2 No evidence of humerus fracture nor dislocation. Bone density normal. No osseous lesions. No obvious degenerative changes in the glenohumeral joint. IMPRESSION: Left humerus appears intact. Report Digitally Signed by Karan Clay on 12/27/2021 04:55 PM EST XR SHOULDER 2V OR MORE LT* - Completed: 12/27/2021 16:47 [facility] [place], [place] [address] PACS TARGET WORKER REPORT Patient Name: CRUZ HESTER MRN: Sex: : Age: [id number] M 1955 Account: Accession: Admit: StayType: [id number] 12/27/2021 E/R Ordered: Order ID: Submitted: Ordering Provider: 12/27/2021 16:19 [id number] SORAYA GONZALEZ Completed: Technologist: Resulted: 12/27/2021 16:47 DRS 12/27/2021 16:54 Study Description: XR SHOULDER 2V OR MORE LT* Study Reason: Trauma 2D digital imaging was performed. COMPARISON: No exams were available for comparison ? FINDINGS: No evidence of fracture nor dislocation. No abnormal soft tissue calcifications. Mild upward subluxation of the humeral head in the glenoid fossa and mild diminution of the subacromial space. There is a not expansile cyst in the acromion. No other bone lesions evident in the iznpt-tu-amun of this shoulder study. IMPRESSION: No acute osseous findings. Other findings as above. Report Digitally Signed by Karan Clay on 12/27/2021 04:54 PM EST Social History Type Status Start Date End Date Code Code Syst em Smoking History Never smoker (Never Smoked) 096319141 SNOMED CT Sex Male Vital Signs Vital Sign Value Unit [place] Value [place] Unit Date/Time Recent/Initial? Code Code System Body Mass Index 20.34 kg/m2 12/27/2021 16:07 Initial 60553 -5 LOINC Systolic Blood Pressure 131 mm[Hg] 12/27/2021 17:58 Most Recent 8480- 6 LOINC Diastolic Blood Pressure 80 mm[Hg] 12/27/2021 17:58 Most Recent 8462- 4 LOINC Systolic Blood Pressure 146 mm[Hg] 12/27/2021 16:07 Initial 8480- 6 LOINC Diastolic Blood Pressure 75 mm[Hg] 12/27/2021 16:07 Initial 8462- 4 LOINC Body Surface Area 1.86 m2 12/27/2021 16:07 Initial 3140- 1 LOINC Height 182.880 0 cm 72.00 in 12/27/2021 16:07 Initial 8302- 2 LOINC O2 Saturation 97 % 2021 17:58 Most Recent 28102 -5 LOINC O2 Saturation 97 % 2021 16:07 Initial 92487 -5 LOINC Pulse 65.0 /min 12/27/2021 17:58 Most Recent 8867- 4 LOINC Pulse 72.0 /min 12/27/2021 16:07 Initial 8867- 4 LOINC Respiration 18 /min 12/28/19 22 17:58 Most Recent 9279- 1 LOINC Respiration 16 /min 12/28/19 22 16:07 Initial 9279- 1 LOINC Temperature 36.7 Kaykay 98.1 F 12/28/19 22 16:07 Initial 8310- 5 LOINC Weight 68.04 kg 150.00 lbs 12/27/2021 16:07 Initial 01257 -7 LOINC Hospital Discharge Instructions Should you have any questions prior to discharge, please contact a member of your healthcare team. If you have left the hospital and have any questions, please contact your primary care physician. Reason For Referral No Data Found Implants Implanted JACKY Status Assigning Authority Procedure Date Lot Number Serial Number Manufacturing Date Expiration Date Distinct ID Code Brand Name Model Number Tendon/lig ament bone anchor, bioabsorba ble 0100 8888 6731 1282 1726 1031 1015 0260 43 Active FDA Left shoulder rotator cuff repair 03/23 [id number] 3 12/18/2025 Arthre x(R) AR-2326 BCC Tendon/lig ament bone anchor, bioabsorba ble 0100 8888 6702 7312 1725 1130 1014 6820 01 Active FDA Left shoulder rotator cuff repair 03/23 7694079 1 01/17/2025 Arthre x(R) AR-2600 SBS-4 Problems Problem Start Date Resolved Date Status Code Code System DEPRESSION 12/27/2021 resolved 65728085 SNOMED-C T HYPERTENSION 12/27/2021 resolved 66473151 SNOMED -CT Allergies and Adverse Reactions Allergy Substance Reaction Severity Start Date Concern Status Co de Code System No Known Allergies Active 124135310 SNO MED-CT Plan of Treatment MRI UPPER EXT JOINT W/O CONTRAST 2021 US ABDOMEN LIMITED 1 ORGAN 06/12/2021 Encounters Encounter Diagnosis Start Date Code Code Sys tem Unspecified dislocation of l eft shoulder joint, initial encounter 12/27/2021 SNOMED-CT Personal Care Team Section Performer Name Performer Role Active Date Inactive Da zohreh
--- OUTSIDE RECORDS SUMMARY | 2023-09-25 02:30 | XMS_ITS ---
Author Organization Unknown Address [address] [place] [address] [phone] Phone Care Team Providers Care Border Measurer Name Role Phone STREETERYASMIN Watters Attending Unavailable CHRISTIANO Marcial Primary Unavailable Social History Type Status Start Date End Date Code Code Syst em Smoking History Never smoker (Never Smoked) 965824723 SNOMED CT Sex Male Hospital Discharge Instructions Should you have any [...] FDA Left shoulder rotator cuff repair 03/23 2164509 3 12/18/2025 Arthre x(R) AR-2326 BCC Tendon/lig ament bone anchor, bioabsorba ble 0100 8888 6702 7312 1725 1130 1014 6820 01 Active FDA Left shoulder rotator cuff repair 03/23 8574759 1 01/17/2025 Arthre x(R) AR-2600 SBS-4 Problems Problem Start Date Resolved Date Status Code Code System DEPRESSION 12/27/2021 resolved 30624568 SNOMED-C T HYPERTENSION 12/27/2021 resolved 57544188 SNOMED -CT Allergies and Adverse Reactions Allergy Substance Reaction Severity Start Date Concern Status Co de Code System No Known Allergies Active 022869953 SNO MED-CT Plan of Treatment MRI UPPER EXT JOINT W/O CONTRAST 2021 US ABDOMEN LIMITED 1 ORGAN 06/12/2021 Encounters Encounter Diagnosis Start Date Code Code Sys tem Strain of muscle(s) and tend on(s) of the rotator cuff of left shoulder, subsequent encounter 01/22/2022 SNOM ED-CT Personal Care Team Section Performer Name Performer Role Active Date Inactive Da te
--- OUTSIDE RECORDS SUMMARY | 2023-09-25 02:30 | XMS_ITS ---
Author Organization Unknown Address [address] [place] [address] [phone] Phone Care Team Providers Care Cutting Torch Operator Name Role Phone SYL Watters Attending Unavailable CHRISTIANO Marcial Primary Unavailable Results MR UPPER EXT ANY JOINT LT WO CONTRAST - Completed: 01/26/2022 11:50 LOINC: [facility] [place], [place] [address] PACS OUTREACH AND EDUCATION SOCIAL WORKER REPORT Patient Name: CRUZ HESTER MRN: Sex: : Age: [id number] M 1955 66 Account: Accession: Admit: StayType: [id number] 01/26/2022 O/P Ordered: Order ID: Submitted: Ordering Provider: 01/26/2022 08:45 [id number] Completed: Technologist: Resulted: 01/26/2022 08:45 01/26/2022 11:07 Study Description: MR UPPER EXT ANY JOINT LT WO CONTRAST Reason For Study: LT SHOULDER PAIN FINDINGS MR examination of the shoulder was performed according to the usual protocol. There is a moderate effusion of the glenohumeral joint. Moderate fluid in the subacromial subdeltoid bursa. Bones and labrum: Presumably degenerative marrow signal changes in greater tuberosity of the humerus. Moderate marrow signal changes adjacent to AC joint with prominent hypertrophic changes noted.. Glenoid labrum appears intact. Rotator cuff: There is a massive rotator cuff tear involving supraspinatus and infraspinatus tendons with retraction of about 3 cm, with the tear was about 5 cm. Rotator interval structures poorly seen, presumed associated rotator interval tear. Subscapularis and teres minor appear intact.. Biceps tendon and anchor: Biceps tendon and anchor show normal signal and no evidence of a tear. Biceps tendon is normally positioned in the bicipital groove. Impression: Massive rotator cuff tear as described above involving supraspinatus and infraspinatus tendons.. Report Digitally Signed by Julio César Rose on 01/26/2022 11:07 AM EST Social History Type Status Start Date End Date Code Code Syst em Smoking History Never smoker (Never Smoked) 403684483 SNOMED CT Sex Male Hospital Discharge Instructions [...] FDA Left shoulder rotator cuff repair 03/23 4582807 3 12/18/2025 Arthre x(R) AR-2326 BCC Tendon/lig ament bone anchor, bioabsorba ble 0100 8888 6702 7312 1725 1130 1014 6820 01 Active FDA Left shoulder rotator cuff repair 03/23 6793814 1 01/17/2025 Arthre x(R) AR-2600 SBS-4 Problems Problem Start Date Resolved Date Status Code Code System DEPRESSION 12/27/2021 resolved 20544563 SNOMED-C T HYPERTENSION 12/27/2021 resolved 37978858 SNOMED -CT Allergies and Adverse Reactions Allergy Substance Reaction Severity Start Date Concern Status Co de Code System No Known Allergies Active 385483605 SNO MED-CT Plan of Treatment MRI UPPER EXT JOINT W/O CONTRAST 2021 US ABDOMEN LIMITED 1 ORGAN 06/12/2021 Encounters Encounter Diagnosis Start Date Code Code Sys tem Complete rotator cuff tear o r rupture of left shoulder, not specified as traumatic 01/26/2022 SNOMED-CT Personal Care Team Section Performer Name Performer Role Active Date Inactive Da te
--- OUTSIDE RECORDS SUMMARY | 2023-09-25 02:30 | XMS_ITS ---
Author Organization Unknown Address [address] [place] [address] [phone] Phone Care Team Providers Care Shaker Washer Name Role Phone RASHEEDA Angulo Attending Unavailable CHRISTIANO Marcial Primary Unavailable Social History Type Status Start Date End Date Code Code Syst em Smoking History Never smoker (Never Smoked) 612875856 SNOMED CT Sex Male Hospital Discharge Instructions [...] FDA Left shoulder rotator cuff repair 03/23 5224913 3 12/18/2025 Arthre x(R) AR-2326 BCC Tendon/lig ament bone anchor, bioabsorba ble 0100 8888 6702 7312 1725 1130 1014 6820 01 Active FDA Left shoulder rotator cuff repair 03/23 6623551 1 01/17/2025 Arthre x(R) AR-2600 SBS-4 Problems Problem Start Date Resolved Date Status Code Code System DEPRESSION 12/27/2021 resolved 91237283 SNOMED-C T HYPERTENSION 12/27/2021 resolved 09716421 SNOMED -CT Allergies and Adverse Reactions Allergy Substance Reaction Severity Start Date Concern Status Co de Code System No Known Allergies Active 935931413 SNO MED-CT Plan of Treatment MRI UPPER EXT JOINT W/O CONTRAST 2021 US ABDOMEN LIMITED 1 ORGAN 06/12/2021 Encounters Encounter Diagnosis Start Date Code Code Sys tem Full thickness rotator cuff tear 01/30/2022 44504611 0 SNOMED-CT Personal Care Team Section Performer Name Performer Role Active Date Inactive Da te
--- OUTSIDE RECORDS SUMMARY | 2023-09-25 02:30 | XMS_ITS ---
Author Organization Unknown Address [address] [place] [address] [phone] Phone Care Team Providers Care Safety Equipment Testing Specialist Name Role Phone STREETERYASMIN Watters Attending Unavailable CHRISTIANO Marcial Primary Unavailable Social History Type Status Start Date End Date Code Code Syst em Smoking History Never smoker (Never Smoked) 760653515 SNOMED CT Sex Male Hospital Discharge Instructions [...] FDA Left shoulder rotator cuff repair 03/23 3065043 3 12/18/2025 Arthre x(R) AR-2326 BCC Tendon/lig ament bone anchor, bioabsorba ble 0100 8888 6702 7312 1725 1130 1014 6820 01 Active FDA Left shoulder rotator cuff repair 03/23 9675695 1 01/17/2025 Arthre x(R) AR-2600 SBS-4 Problems Problem Start Date Resolved Date Status Code Code System DEPRESSION 12/27/2021 resolved 20801611 SNOMED-C T HYPERTENSION 12/27/2021 resolved 27132062 SNOMED -CT Allergies and Adverse Reactions Allergy Substance Reaction Severity Start Date Concern Status Co de Code System No Known Allergies Active 001606068 SNO MED-CT Plan of Treatment MRI UPPER EXT JOINT W/O CONTRAST 2021 US ABDOMEN LIMITED 1 ORGAN 06/12/2021 Encounters Encounter Diagnosis Start Date Code Code Sys tem Injury of tendon of the rotator cuff of shoulder 01/09 378787193 SNOMED-CT Personal Care Team Section Performer Name Performer Role Active Date Inactive Da te
--- OUTSIDE RECORDS SUMMARY | 2023-09-25 02:30 | XMS_ITS ---
Author Organization Unknown Address [address] [place] [address] [phone] Phone Care Team Providers Care Bale Piler Name Role Phone RASHEEDA Angulo Attending Unavailable BLAIR LYNCH MANAGER RESIDENTIAL Unavailable ABHIJEET Horne Physician Machine Tool Rebuilder Unavailable CHRISTIANO Marcial Primary Unavailable Social History Type Status Start Date End Date Code Code Syst em Smoking History Never smoker (Never Smoked) 893467687 SNOMED CT Sex Male Vital Signs Vital Sign Value Unit [place] Value [place] Unit Date/Time Recent/Initial? Code Code System Body Mass Index 23.87 kg/m2 03/09/2022 09:34 Initial 12914 -5 [facility] Systolic Blood Pressure 111 mm[Hg] 03/23/2022 17:58 Initial 8480- 6 LOINC Diastolic Blood Pressure 72 mm[Hg] 03/23/2022 17:58 Initial 8462- 4 INC Body Surface Area 1.91 m2 03/09/2022 09:34 Initial 3140- 1 LOINC Height 176.530 0 cm 69.50 in 03/09/2022 09:34 Initial 8302- 2 LOINC O2 Saturation 100 % 2022 17:58 Initial 82096 -5 LOINC Pulse 72.0 /min 03/23/2022 17:58 Initial 8867- 4 LOINC Respiration 16 /min 03/23/19 17:58 Initial 9279- 1 LOINC Temperature 36.1 Kaykay 97.0 F 03/23/19 17:58 Initial 8310- 5 LOINC Weight 74.39 kg 164.00 lbs 03/09/2022 09:34 Initial 31270 -7 [facility] Hospital Discharge Instructions Should you have any questions prior to discharge, please contact a member of your healthcare team. If you have left the hospital and have any questions, please contact your primary care physician. Reason For Referral No Data Found Procedures Procedure Name Date Status Code Code Syste m Repair, Ruptured Musculotend inous Cuff; Chronic 03/23/2022 completed 67996 CPT Injection Anesthetic Agent a nd/or Steroid; Brachial Plexus Including Imaging Guidance When Performed 03/23/2022 completed 51877 CPT Anesthesia, Nerves/Muscles/T endons/Fascia & Bursae, Shoulder/Axilla 03/23/2022 completed 35895 CPT Implants Implanted JACKY Status Assigning Authority Procedure Date Lot Number Serial Number Manufacturing Date Expiration Date Distinct ID Code Brand Name Model Number Tendon/lig ament bone anchor, bioabsorba ble 0100 8888 6731 1282 1726 1031 1015 0260 43 Active FDA Left shoulder rotator cuff repair 03/23 [id number] 3 12/18/2025 Arthre x(R) AR-2326 BCC Tendon/lig ament bone anchor, bioabsorba ble 0100 8888 6702 7312 1725 1130 1014 6820 01 Active FDA Left shoulder rotator cuff repair 03/23 3982935 1 01/17/2025 Arthre x(R) AR-2600 SBS-4 Problems Problem Start Date Resolved Date Status Code Code System DEPRESSION 12/27/2021 resolved 93316167 SNOMED-C T HYPERTENSION 12/27/2021 resolved 48896977 SNOMED -CT Allergies and Adverse Reactions Allergy Substance Reaction Severity Start Date Concern Status Co de Code System No Known Allergies Active 820399869 SNO MED-CT Plan of Treatment MRI UPPER EXT JOINT W/O CONTRAST 2021 US ABDOMEN LIMITED 1 ORGAN 06/12/2021 Encounters Encounter Diagnosis Start Date Code Code Sys tem Complete rotator cuff tear o r rupture of left shoulder, not specified as traumatic 03/23/2022 SNOMED-CT Personal Care Team Section Performer Name Performer Role Active Date Inactive Da te
--- OUTSIDE RECORDS SUMMARY | 2023-09-25 02:31 | XMS_ITS ---
Author Organization Unknown Address [address] [place] [address] [phone] Phone Care Team Providers Care Chick Sexer Name Role Phone RASHEEDA Angulo Attending Unavailable Social History Type Status Start Date End Date Code Code Syst em Smoking History Never smoker (Never Smoked) 490603812 SNOMED CT Sex Male Hospital Discharge Instructions [...] FDA Left shoulder rotator cuff repair 03/23 7009080 3 12/18/2025 Arthre x(R) AR-2326 BCC Tendon/lig ament bone anchor, bioabsorba ble 0100 8888 6702 7312 1725 1130 1014 6820 01 Active FDA Left shoulder rotator cuff repair 03/23 9561445 1 01/17/2025 Arthre x(R) AR-2600 SBS-4 Problems Problem Start Date Resolved Date Status Code Code System DEPRESSION 12/27/2021 resolved 64352725 SNOMED-C T HYPERTENSION 12/27/2021 resolved 45495198 SNOMED -CT Allergies and Adverse Reactions Allergy Substance Reaction Severity Start Date Concern Status Co de Code System No Known Allergies Active 205470817 SNO MED-CT Plan of Treatment MRI UPPER EXT JOINT W/O CONTRAST 2021 US ABDOMEN LIMITED 1 ORGAN 06/12/2021 Encounters Encounter Diagnosis Start Date Code Code Sys tem Full thickness rotator cuff tear 03/23/202212347369 0 SNOMED-CT Personal Care Team Section Performer Name Performer Role Active Date Inactive Da te
--- OUTSIDE RECORDS SUMMARY | 2023-09-25 02:31 | XMS_ITS ---
Author Organization Unknown Address [address] [place] [address] [phone] Phone Care Team Providers Care Manager Shop Name Role Phone RASHEEDA Angulo Attending Unavailable CHRISTIANO Marcial Primary Unavailable Social History Type Status Start Date End Date Code Code Syst em Smoking History Never smoker (Never Smoked) 211683627 SNOMED CT Sex Male Hospital Discharge Instructions [...] FDA Left shoulder rotator cuff repair 03/23 9673089 3 12/18/2025 Arthre x(R) AR-2326 BCC Tendon/lig ament bone anchor, bioabsorba ble 0100 8888 6702 7312 1725 1130 1014 6820 01 Active FDA Left shoulder rotator cuff repair 03/23 8507612 1 01/17/2025 Arthre x(R) AR-2600 SBS-4 Problems Problem Start Date Resolved Date Status Code Code System DEPRESSION 12/27/2021 resolved 50684986 SNOMED-C T HYPERTENSION 12/27/2021 resolved 33110817 SNOMED -CT Allergies and Adverse Reactions Allergy Substance Reaction Severity Start Date Concern Status Co de Code System No Known Allergies Active 761796986 SNO MED-CT Plan of Treatment MRI UPPER EXT JOINT W/O CONTRAST 2021 US ABDOMEN LIMITED 1 ORGAN 06/12/2021 Encounters Encounter Diagnosis Start Date Code Code Sys tem Postprocedural state finding 07/31/2022 103498561 SNOMED-CT Personal Care Team Section Performer Name Performer Role Active Date Inactive Da te
--- OUTSIDE RECORDS SUMMARY | 2023-09-25 02:31 | XMS_ITS ---
Author Organization Unknown Address [address] [place] [address] [phone] Phone Care Team Providers Care Senior Safety Management Consultant Name Role Phone RASHEEDA Angulo Attending Unavailable CHRISTIANO Marcial Primary Unavailable Social History Type Status Start Date End Date Code Code Syst em Smoking History Never smoker (Never Smoked) 664555881 SNOMED CT Sex Male Hospital Discharge Instructions [...] FDA Left shoulder rotator cuff repair 03/23 3483427 3 12/18/2025 Arthre x(R) AR-2326 BCC Tendon/lig ament bone anchor, bioabsorba ble 0100 8888 6702 7312 1725 1130 1014 6820 01 Active FDA Left shoulder rotator cuff repair 03/23 1133269 1 01/17/2025 Arthre x(R) AR-2600 SBS-4 Problems Problem Start Date Resolved Date Status Code Code System DEPRESSION 12/27/2021 resolved 33218859 SNOMED-C T HYPERTENSION 12/27/2021 resolved 86455243 SNOMED -CT Allergies and Adverse Reactions Allergy Substance Reaction Severity Start Date Concern Status Co de Code System No Known Allergies Active 711186807 SNO MED-CT Plan of Treatment MRI UPPER EXT JOINT W/O CONTRAST 2021 US ABDOMEN LIMITED 1 ORGAN 06/12/2021 Encounters Encounter Diagnosis Start Date Code Code Sys tem Follow-up orthopedic assessment 05/01/2022 168500446 SNOMED-CT Personal Care Team Section Performer Name Performer Role Active Date Inactive Da te
--- OUTSIDE RECORDS SUMMARY | 2023-09-25 02:32 | XMS_ITS ---
Author Organization Unknown Address [address] [place] [address] [phone] Phone Care Team Providers Care Corporate Legal Assistant Name Role Phone RASHEEDA Angulo Attending Unavailable CHRISTIANO Marcial Primary Unavailable Social History Type Status Start Date End Date Code Code Syst em Smoking History Never smoker (Never Smoked) 225473483 SNOMED CT Sex Male Hospital Discharge Instructions [...] FDA Left shoulder rotator cuff repair 03/23 3415630 3 12/18/2025 Arthre x(R) AR-2326 BCC Tendon/lig ament bone anchor, bioabsorba ble 0100 8888 6702 7312 1725 1130 1014 6820 01 Active FDA Left shoulder rotator cuff repair 03/23 0784379 1 01/17/2025 Arthre x(R) AR-2600 SBS-4 Problems Problem Start Date Resolved Date Status Code Code System DEPRESSION 12/27/2021 resolved 66442086 SNOMED-C T HYPERTENSION 12/27/2021 resolved 11921719 SNOMED -CT Allergies and Adverse Reactions Allergy Substance Reaction Severity Start Date Concern Status Co de Code System No Known Allergies Active 459899010 SNO MED-CT Plan of Treatment MRI UPPER EXT JOINT W/O CONTRAST 2021 US ABDOMEN LIMITED 1 ORGAN 06/12/2021 Encounters Encounter Diagnosis Start Date Code Code Sys tem Postprocedural state finding 05/07/2023 211615365 SNOMED-CT Personal Care Team Section Performer Name Performer Role Active Date Inactive Da te
--- OUTSIDE RECORDS SUMMARY | 2023-09-25 02:32 | XMS_ITS | Encounter Summary ---
Author Organization [facility] Address [facility] [place] [address] Care Team Providers Care Weed Controller Name Role Phone Jeff Pfeiffer MD Primary Care Provider [phone] Reason for Visit * Reason Onset Date Comments Results 06/26/2023 PSA Encounter Details Date Type Department Care Team (Late st Contact Info) Description 06/26/2023 Telephone Radiation Oncology at [address] [phone] Leesa Randall, RN Results (PSA) Social History Tobacco Use Types Packs/Day Years Used Date Smoking Tobacco: Former Cigarettes Q uit: 1989 Smokeless Tobacco: Never Alcohol Use Standard Drinks/Week Comments Yes 15 (1 standard drink = 0.6 oz pu re alcohol) [facility] Utilities Answer Date Recorded In the past 12 months has th e electric, gas, oil, or water company threatened to shut off services in your home? No 06/19/2023 Overall Financial Resource Strain (CARDIA) Answe r Date Recorded How hard is it for you to pa y for the very basics like food, housing, medical care, and heating? Not very hard 06/19/2023 Hunger Vital Sign Answer Date Recorded Within the past 12 months, y ou worried that your food would run out before you got the money to buy more. Never true 06/19/19 24 Within the past 12 months, t he food you bought just didn't last and you didn't have money to get more. Never true 06/19/2023 PRAPARE - Transportation Answer Date Re corded In the past 12 months, has l ack of transportation kept you from medical appointments or from getting medications? No 02/2023 In the past 12 months, has l ack of transportation kept you from meetings, work, or from getting things needed for daily living? No 06/19/2023 Housing Stability Vital Sign Answer Yobani e Recorded In the last 12 months, was t here a time when you were not able to pay the mortgage or rent on time? No 06/19/2023 In the last 12 months, how many places have you lived? 1 06/19/2023 In the last 12 months, was t here a time when you did not have a steady place to sleep or slept in a detention (including now)? No 06/19/2023 Sex and Gender Information Value Date Recorded Sex Assigned at Not on file Gender Identity Not on file Sexual Orientation Not on file documented as of this encounter Miscellaneous Notes * Telephone Encounter - Leesa Randall RN - 06/26/2023 11:31 AM EDT RN call to Rolando Kevin to notify him of his recent PSA result of 6.0. He states that's good! Last time it was 8.6. I also let him know that Dr. Berumen would be putting in for his decipher and thatwe would let him know when that was available. He was thankful for the follow up. documented in this encounter Plan of Treatment Upcoming Encounters Date Type Department Care Team (Late st Contact Info) Description 10/10/2023 2:30 PM EDT Office Visit Radiation Oncology at [address] [phone] Leroy Berumen MD [address] [place] [address] DR RADIATION ONCOLOGY [place], [place] [id number] 10/10/2023 3:00 PM EDT Infusion Hematology Oncology at [address] [phone] documented as of this encounter Visit Diagnoses Not on filedocumented in this encounter Care Teams Weed Controller Relationship Specialty Start Date End Date Jeff Pfeiffer MD [address] [place] [address] PCP - General Family Medicine 03/12/23 documented as of this encounter
--- OUTSIDE RECORDS SUMMARY | 2023-09-25 02:32 | XMS_ITS | Encounter Summary ---
Author Organization [facility] Address [address] [place] [address] Care Team Providers Care Shoe Parts Caser Name Role Phone Jeff Pfeiffer MD Primary Care Provide r Encounter Details Date Type Department Care Team (Late st Contact Info) Description 01/24/2023 Lab Requisition [facility] Pathology & Laboratory Medicine - [facility] [address] [place] [address] Outr Resulting Lab, Provider Social History Tobacco Use Types Packs/Day Years Used Date Smoking Tobacco: Never Assessed Interpersonal Safety Answer Date Record ed Physically Hurt Never 01/12/2020 Verbally Threaten Not on file 01/12/2020 Sex and Gender Information Value Date Recorded Sex Assigned at Not on file Gender Identity Not on file Sexual Orientation Not on file documented as of this encounter Plan of Treatment Not on file documented as of this encounter Procedures Procedure Name Priority Date/Time Associated Diagnosis Comments PSA TOTAL, DIAGNOSTIC Routine 01/24/2023 9:20 EST documented in this encounter Results * (ABNORMAL) PSA TOTAL, DIAGNOSTIC (01/24/2023 9:20 EST) PSA 8.6(H) <=4.5 ng/mL 01/24/2023 20:10 EST [facility] Blood VENOUS BLOOD / Unknown 01/24/2023 9:20 EST 01/24/2023 18:26 EST Narrative [facility] - 01/24/2023 20:10 EST NOTE: Serum PSA concentration should not be interpreted as absolute evidence for the presence or absence of malignant disease. Assayed on Siemens ADVIA PeeP Mobile Digitalaur XPT using chemiluminescent technology.??Values obtained by using different assay methods cannot be used interchangeably. Provider Outr Resulting Lab CHEMISTRY & BLOOD GAS ORDERABLES [facility] [address] [place] [address] documented in this encounter Visit Diagnoses Not on filedocumented in this encounter Care Teams Shoe Parts Caser Relationship Specialty Start Date End Date Jeff Pfeiffer MD [address] [phone] PCP - General 08/27/22 documented as of this encounter
--- OUTSIDE RECORDS SUMMARY | 2023-09-25 02:32 | XMS_ITS ---
Author Organization [facility] [place] [address] Care Team Providers Care Meal Temperer Name Role Phone Jeff Pfeiffer MD Primary Care Provider [phone] Active Problems Problem Noted Date Diagnosed Date Malignant neoplasm of prostate 06/14/2023 Cancer Staging:Clinical:Stage IIB(cT1c, cN0, cM0, PSA: 8.6, Grade Group: 2) - Signed by Leroy Berumen MD on 06/14/2023 Current Oncology Plans Degarelix (Firmagon) Injection ([facility], [facility]) New Patient Induction* Plan Start Date:07/12/2023 Plan Provider:Leroy Berumen MD Linked Problems Malignant neoplasm of prosta te Treatment Medications No medications scheduled. Leuprolide (Lupron Depot) Injection ([facility], [facility], [facility]) Adult* Plan Start Date:08/16/2023 Plan Provider:Leroy Berumen MD Linked Problems Malignant neoplasm of prosta te Treatment Medications No medications scheduled. Past Plans No past plan information found. Radiation Treatments * No radiation treatments are documented for this patient in [facility]. Treatments may have been administered in another system.
--- OUTSIDE RECORDS SUMMARY | 2023-09-25 02:32 | XMS_ITS | Encounter Summary ---
Author Organization [facility] Address [address] [place] [address] Care Team Providers Care Roving Winder Name Role Phone Jeff Pfeiffer MD Primary Care Provide r Encounter Details Date Type Department Care Team (Late st Contact Info) Description 05/21/2019 Lab Requisition [facility] Pathology & Laboratory Medicine - [facility] [address] [place] [address] Unknown, Provider, Social History Tobacco Use Types Packs/Day Years Used Date Smoking Tobacco: Never Assessed Sex and Gender Information Value Date Recorded Sex Assigned at Not on file Gender Identity Not on file Sexual Orientation Not on file documented as of this encounter Plan of Treatment Not on file documented as of this encounter Procedures Procedure Name Priority Date/Time Associated Diagnosis Comments PSA TOTAL, DIAGNOSTIC Routine 05/20/2019 9:20 EDT documented in this encounter Results * PSA TOTAL, DIAGNOSTIC (05/20/2019 9:20 EDT) PSA 2.6 0.0 - 4.5 ng/mL 05/22/2019 10:00 EDT [facility] Blood VENOUS BLOOD / Unknown 05/20/2019 9:20 EDT 05/21/2019 15:48 EDT Narrative [facility] - 05/22/2019 10:00 EDT NOTE: Serum PSA concentration should not be interpreted as absolute evidence for the presence or absence of malignant disease. Assayed on Siemens ADVIA Centaur XPT using chemiluminescent technology.??Values obtained by using different assay methods cannot be used interchangeably. Provider Unknown CHEMISTRY & BLOOD GA S ORDERABLES Performing Organization Address City/State/[facility] Co de Phone Number [facility] [address] [place] [address] documented in this encounter Visit Diagnoses Not on filedocumented in this encounter Care Teams Roving Winder Relationship Specialty Start Date End Date Jeff Pfeiffer MD [address] [place] [id number] PCP - General 08/27/22 documented as of this encounter
--- OUTSIDE RECORDS SUMMARY | 2023-09-25 02:32 | XMS_ITS | Encounter Summary ---
Author Organization [facility] Address [address] [place] [address] Care Team Providers Care Electrical Appliance Mechanic Name Role Phone Jeff Pfeiffer MD Primary Care Provide r Reason for Visit * Reason Comments Procedure Left neck * Consult (Routine) - Authorized Specialty Diagnoses / Procedures [facility] Referred To Contact Dermatology Diagnoses Basal cell carcinoma (BCC) of neck Procedures MN ADJ TISS XFER HEAD,FAC,HAND <10 SQCM MN ADJ TISS XFER HEAD,FAC,HAND 10.1-30 SQCM MN ADJ TISS XFER ANY AREA,30.1-60 SQCM MN SPLIT GRFT,HEAD,FAC,HAND,FEET <100 SQCM MN FULL THICK GRFT HEAD,FAC,HAND <20SQC MN FULL THICK GRFT HEAD,FAC,JUSTIN ADD 20SQ MN DELAY/SECTN FLAP FACE,GENIT,HAND,FT MN COMPOSITE SKIN GRAFT MN MOHS, 1 STAGE, HEAD/NECK/HAND/FEET/GENTI AL [facility] Dermatology [address] [place] [id number] John Aden MD [address] [place] [phone] Referral ID Status Reason Start Date Expiration Date V isits Requested Visits Authorized [id number] Authorized 1 1 Encounter Details Date Type Department Care Team (Late st Contact Info) Description 08/27/2022 13:00 EDT Office Visit [facility] Dermatology 5th Floor [address] [address] John Aden MD [address] [place] [phone] Basal cell carcinoma (BCC) of left side of neck (Primary Dx) Social History Tobacco Use Types Packs/Day Years Used Date Smoking Tobacco: Never Assessed Tobacco Cessation:Counseling Given: Yes Interpersonal Safety Answer Date Record ed Physically Hurt Never 01/12/2020 Verbally Threaten Not on file 01/12/2020 Sex and Gender Information Value Date Recorded Sex Assigned at Not on file Gender Identity Not on file Sexual Orientation Not on file documented as of this encounter Last Filed Vital Signs Vital Sign Reading Time Taken Comments Blood Pressure 132/82 08/27/2022 1304 EDT Pulse 72 08/27/2022 1304 EDT Temperature - - Respiratory Rate - - Oxygen Saturation - - Inhaled Oxygen Concentration - - Weight - - Height - - Body Mass Index - - documented in this encounter Patient Instructions * Patient Instructions* Claudine Oneill MA - 08/27/2022 13:00 EDT WOUND CARE INSTRUCTIONS FOR SKIN SURGERY (SUTURED OR OPEN WOUND) BANDAGE: Leave the bandage in place for 24 hours. You may shower or bathe after 24 hours. Remove the bandage and replace it after the showering (see below). DISCOMFORT: Expect discomfort. Take acetaminophen (for example, TylenolTM) as directed. If this does not provide sufficient relief, take ibuprofen (AdvilTM), up to 600 mg every 8 hours). You may takeboth of these together or alternate them. We do not routinely prescribe narcotic pain medications. If pain is severe and not relieved by the above measures, please call the office. BLEEDING: Some blood seeping into the bandage is NORMAL. If the bleeding soaks through the dressing, remove the dressing, and apply firm, steady pressure with a moist clean wash cloth for fifteen minutes. If the bleeding stops, redress the wound. If not, call our office. ACTIVITY: No strenuous activity for the first 48 hours after surgery. Keep your head elevated. APPEARANCE: Swelling and bruising are normal. Some redness is normal, but the wound should not be red, hot and tender. If the wound rapidly swells up or becomes increasingly inflamed, warm, or drainspus, please call our office. WOUND CARE: Change the dressing daily and/or when it becomes wet. Wash hands with soap and water and clean the wound with soap and warm water. You may use 3% hydrogen peroxide and a cotton swab to loosen and remove the crusting from a wound with stitches. Apply a thin layer of sterile petroleum jelly over the wound. Cover with Telfa or similar non-stick dressing or bandage Tape in place with Hypafix or paper tape Mild tenderness, pinpoint bleeding and a thin mucous-like discharge are normal. Keep all sutured wounds covered daily for a full 7 days. Open wounds will need to be covered for much longer. If you have sutures that require removal, you will receive specific instructions regarding when andwhere to have them removed. If you have dissolving sutures they will fall apart and be gone in 10-14 days. OPEN WOUND HEALING (Wound without sutures): If your wound was left open to heal on its own, approximately one week after surgery a pink/red halo will form around the outside of the wound; this is newskin. The center of the wound will appear yellowish white and produce some drainage. The pink halo will slowly migrate toward the center of the wound until the wound is covered with new shiny pink skin. There will be a mucus-like drainage on the dressing and there will be no more drainage when the wound is completely healed. WHEN TO CONTACT YOUR PHYSICIAN: Contact you physician if your wound becomes increasingly sore, tender, red, or warm, or if the surgery site rapidly swells. Please call our office [phone] or if you have any questions or concerns. documented in this encounter Progress Notes * John Aden MD - 08/27/2022 1300 EDT Images from the original note were not included. MOHS SURGERY POST-OP SUMMARY Rolando Brown is a 67 y.o. year old male who underwent Mohs surgery today 08/27/2022. The following lisa summary of the operative findings: Lesion 1 Basal cell carcinoma (BCC) Location left neck Size Preop (cm) 1.5 cm x 1.0 cm Size Postop (cm) 1.6 cm x 1.3 cm Stages 1 Depth of Excision subcutis Repair intermediate linear repair Mr. Brown was discharged from the operative suite in good condition. He was carefully instructed in postoperative wound care both verbally and in writing. All sutures used were absorbable, so the patient does not need to return for suture removal. The patient will return for follow up as needed. Note: Mady Aden MD 08/27/2022 18:40 MOHS EVALUATION NOTE Chief Complaint Patient presents with ??? Procedure Left neck Subjective: Rolando Brown is a 67 y.o. year old male who presents for evaluation and treatment recommendations for skin cancer. The patient was referred to us by Leslie Brown PA-C. Surgical Risk factors: Pacemaker/ICD: none Anticoagulants: none Total joint replacements/valves: total knee replacement (1999) Allergies: Patient has No Known Allergies. Immunosuppression: none Smoking status: has no history on file for tobacco use. For full Medical, Surgical, Family, and Social histories as well as Review of Systems, Medications and Allergies please see those sections of this encounter in the electronic chart which I have personally reviewed. Objective: The following data was reviewed: photograph and pathology report. Examination of the affected area revealed the following: ?? An approximately 1.5 cm x 1.0 cm pearly and pink, plaque and biopsy scar located on the left neck. Pathology (Date Collected: 07/11/2022): Assessment & Plan: #) Basal cell carcinoma (BCC) of the left neck ?? The diagnosis, etiology, prognosis and treatment options were reviewed. ?? Due to the need for a high cure rate and optimum functional and aesthetic outcome, I feel that Mohs surgery is indicated. The risks of Mohs surgery and potential reconstructive surgery, including:bleeding, infection, scarring, recurrence, injury to functionally or cosmetically important nerve structures and an unsatisfactory cosmetic result were reviewed. The patient was given an opportunity to ask questions, and I believe that all of his questions were answered satisfactorily. Mr. Brown understands that following Mohs surgery an operative repair may be required and may involve substantialsuturing. We have jointly planned to have me repair the wound at the day of surgery if needed. He understands that it typically takes 4 to 6 months for wounds to heal before a decision can be made about the final cosmetic result and that in some cases a revision may be necessary to optimize the outcome. I explained to Mr. Brown that in addition to the risk of recurrence from his skin cancer he hasan increased risk of developing additional new skin cancers elsewhere. For that reason, follow up for ongoing skin surveillance examinations, after surgery, will be imperative. The patient has been scheduled to undergo surgery today. Note: None Attestation statement: I saw and examined the patient with the resident / fellow. I agree with the findings and plan of care documented in the resident's / fellow's note. John Aden MD 08/27/2022 18:40 MOHS OPERATIVE REPORT Patient Name: Rolando Brown Date of Service: August 27, 2022 Surgeon and Pathologist: John Aden MD Tank Officer: Marlon Elliott MD Case #: [id number] Mohs AUC Score: 7 (APPROPRIATE) Preoperative Diagnosis: Basal cell carcinoma (BCC) Preoperative Procedure: Mohs micrographic surgery Location of Lesion: left neck Preoperative Lesion Size: 1.5 cm x 1.0 cm Preoperative Procedure: Mohs microscopically-controlled fresh tissue excision Indications: The patient presents with a skin cancer complicated by the following clinical features: location critical for tissue conservation and poorly defined clinical borders. Because of the histologic and clinical nature of the lesion, as well as its location, the need to achieve the highest cure rate while providing maximum tissue preservation warranted tumor extirpation via microscopically-controlled excision using the Mohs fresh tissue technique. Alternate therapeutic options were discussed prior to surgery. After informed consent was obtained and appropriate instruction was provided,the patient underwent tumor extirpation by the Mohs fresh tissue technique as follows: PROCEDURE - INITIAL STAGE: Patient position: supine Anesthesia: 1% lidocaine with epinephrine 1:100,000 local infiltration Prep: Povodine Iodine Patient Vitals for the past 24 hrs: BP Pulse 08/27/22 1304 132/82 72 The patient was brought to the operative suite. The lesion was identified and was prepped in a sterile fashion. The area was infiltrated with lidocaine/epinephrine to achieve complete anesthesia and to augment hemostasis. The Mohs procedure was then carried out by Dr. Aden as follows: An initial b eveled excision was performed through the epidermis and dermis with a #15 scalpel blade. A hash wascreated in the specimen and within the adjacent epidermis for marking purposes. The Mohs specimen was then excised in a sharp manner, and carefully placed in proper orientation on the surgical tray. H emostasis of the operative wound was obtained with careful spot electrocoagulation. A sterile non-adherent dressing was applied to the operative wound. The Mohs tissue specimen was carefully transferred to the lab where the tissue was divided, and color inked for orientation. These specimens were mapped and then handed personally by the doctor to the master sonar technician for frozen sectioning. The tissue was embedded so that the deep and surface margins layin the same plane, and sections were made through this plane. Once the slide preparation was complete Dr. Aden performed histologic evaluation and interpretation of all sections. A summary of the findings may be found below. Stage 1 findings: Wound depth subcutis Sections created 2 Number of sections containing tumor 0 Histologic findings SUN DAMAGED SKIN: Sections consist of a portion of skin, including epidermis, dermis, and subcutis. The epidermis is unremarkable. There is chronic patchy inflammation and solar elastosis present within the dermis. There is no evidence of malignancy at the surgical margins. ADDITIONAL STAGES: None With the patient clear of microscopic tumor, surgery was considered complete. The wound was repaired with an INTERMEDIATE LINEAR closure as detailed in the separate linear repair procedure note below. Postoperative Wound Size: 1.6 cm x 1.3 cm Final Diagnosis: Basal cell carcinoma (BCC) Final Procedure: Mohs micrographic surgery Blood Loss: Minimal Operative Time: 15 minutes Complications: None Note: None The fellow (Marlon Elliott MD) performed the procedure. The attending physician was personally presentand immediately available throughout. John Aden MD 08/27/2022 18:41 INTERMEDIATE REPAIR PATIENT INFORMATION: Rolando Brown SURGEON: John Aden MD MARINE ELECTRICIAN HELPER: Marlon Elliott MD and Bernadine Dorantes MD PREOPERATIVE DIAGNOSIS: Defect following microscopically controlled excision of basal cell carcinoma (BCC) PREOPERATIVE PROCEDURE: Intermediate Linear Closure LOCATION of WOUND: left neck WOUND DIMENSIONS: 1.6 cm x 1.3 cm INDICATIONS: The patient presents with an operative wound following tumor removal. After careful consideration and discussion of all repair options, it was determined that, given the location and nature of the defect, an intermediate linear layered closure offered the best chance for preservation of normal anatomic and functional relationships. Alternate options were discussed and the patient was encouraged to ask questions, which, I believe, were answered appropriately. Informed consent was obtained in writing. After informed consent was obtained and appropriate instruction was provided, the patient underwent operative repair as follows. PROCEDURE: Patient position: supine Anesthesia: 1% lidocaine with epinephrine 1:100,000 local infiltration Prep: Povodine Iodine The Mohs operative defect was identified, and the area was infiltrated with lidocaine/epinephrine to achieve complete anesthesia and to augment hemostasis. The area was prepped in the usual sterile and was draped with sterile drapes. A linear closure was designed with care to place the operative repair within functional and cosmetic lines to minimize the postoperative distortion of normal tissues. The wound edges were prepared using a # 15 scalpel blade to precisely delineate the operative repair and were then undermined with combined blunt and, as needed, sharp dissection taking great care to avoid functionally important vessels and nerves. Undermining was carried out at the level of the subcutaneous fat Hemostasis of the operative wound was obtained with careful spot electrocoagulation,and ligature as indicated. The wound edges were then approximated using 4.0 Monocryl (poliglecaprone 25) buried interrupted sutures at the level of the subcutis and dermis. The epidermis was then approximated using 5.0 Fast absorbing plain gut. The final wound length was 5.5 cm. The wound edges were cleansed with peroxide and dressed with petrolatum, a non-adherent gauze pad and Hypafix?? tape. Verbal and written wound care instructions were given. The patient tolerated the procedure well and left the operating suite in excellent condition. FINAL DIAGNOSIS: Defect following microscopically controlled excision FINAL PROCEDURE: Intermediate linear closure BLOOD LOSS: minimal OPERATIVE TIME: 20 minutes COMPLICATIONS: None NOTE: None The fellow (Marlon Elliott MD) performed the procedure. The attending physician was personally presentand immediately available throughout. John Aden MD 08/27/2022 18:41 documented in this encounter Plan of Treatment Not on file documented as of this encounter Procedures Procedure Name Priority Date/Time Associated Diagnosis Comments PROCEDURE REPORTS - SCANNED 08/29/2022 18:22 EDT documented in this encounter Results * PROCEDURE REPORTS - SCANNED (08/29/2022 18:22 EDT) 08/29/2022 18:2 2 EDT Scan 2 Logistics Project Manager PROCEDURE/MINOR MIHIR GICAL ORDERABLES documented in this encounter Visit Diagnoses Diagnosis Basal cell carcinoma (BCC) of left side of neck- Primary documented in this encounter Historical Medications * This list may reflect changes made after this encounter. Medication Sig Dispensed Refills Start Date End Date Cholecalciferol, Vitamin D3, 10 mcg (400 unit) tablet Take 50 Units by mouth daily. TAMSulosin (FLOMAX) 0.4 mg capsule Take 1 Capsule by mouth daily. atorvastatin (LIPITOR) 40 mg tablet Take 1 Tablet by mouth daily. Coenzyme Q10 (CO Q-10) 100 mg capsule Take 1 Capsule by mouth daily. added in this encounter Care Teams Electrical Appliance Mechanic Relationship Specialty Start Date End Date Jeff Pfeiffer MD [address] [place] [id number] PCP - General 08/27/22 documented as of this encounter
--- OUTSIDE RECORDS SUMMARY | 2023-09-25 02:32 | XMS_ITS ---
Author Organization Unknown Address [address] [place] [address] [phone] Phone Care Team Providers Care Roofing Sales Representative Name Role Phone RASHEEDA Angulo Attending Unavailable CHRISTIANO Marcial Primary Unavailable Social History Type Status Start Date End Date Code Code Syst em Smoking History Never smoker (Never Smoked) 222040284 SNOMED CT Sex Male Hospital Discharge Instructions [...] FDA Left shoulder rotator cuff repair 03/23 [id number] 3 12/18/2025 Arthre x(R) AR-2326 BCC Tendon/lig ament bone anchor, bioabsorba ble 0100 8888 6702 7312 1725 1130 1014 6820 01 Active FDA Left shoulder rotator cuff repair 03/23 [id number] 1 01/17/2025 Arthre x(R) AR-2600 SBS-4 Problems Problem Start Date Resolved Date Status Code Code System DEPRESSION 12/27/2021 resolved 94779102 SNOMED-C T HYPERTENSION 12/27/2021 resolved [id number] SNOMED -CT Allergies and Adverse Reactions Allergy Substance Reaction Severity Start Date Concern Status Co de Code System No Known Allergies Active 262330610 SNO MED-CT Plan of Treatment MRI UPPER EXT JOINT W/O CONTRAST 2021 US ABDOMEN LIMITED 1 ORGAN 06/12/2021 Encounters Encounter Diagnosis Start Date Code Code Sys tem 11/06/2022 [id number] SNOMED-CT Personal Care Team Section Performer Name Performer Role Active Date Inactive Da te
--- OUTSIDE RECORDS SUMMARY | 2023-09-25 02:32 | XMS_ITS | Encounter Summary ---
Author Organization [facility] Address [facility] [place] [address] Care Team Providers Care Claim Clerk Name Role Phone Jeff Pfeiffer MD Primary Care Provider [phone] Encounter Details Date Type Department Care Team (Latest Contact Info) Description 07/18/2023 Travel Social History Tobacco Use Types Packs/Day Years Used Date Smoking Tobacco: Former Cigarettes Q uit: 1989 Smokeless Tobacco: Never Alcohol Use Standard Drinks/Week Comments Yes 15 (1 standard drink = 0.6 oz pu re alcohol) [facility] Utilities Answer Date Recorded In the past 12 months has th e [email or web address], gas, oil, or water [employer] threatened to shut off services in your [...] place to sleep or slept in a half-way (including now)? No 06/19/2023 Sex and Gender Information Value Date Recorded Sex Assigned at Not on file Gender Identity Not on file Sexual Orientation Not on file documented as of this encounter Plan of Treatment Upcoming Encounters Date Type Department Care Team (Late st Contact Info) Description 10/10/2023 2:30 PM EDT Office Visit Radiation Oncology at [address] [phone] Leroy Berumen MD [address] [place] [address] DR RADIATION ONCOLOGY [place], [place] [phone] 10/10/2023 3:00 PM EDT Infusion Hematology Oncology at [address] [phone] documented as of this encounter Visit Diagnoses Not on filedocumented in this encounter Care Teams Claim Clerk Relationship Specialty Start Date End Date Jeff Pfeiffer MD [address] [place] [address] PCP - General Family Medicine 03/12/23 documented as of this encounter
--- OUTSIDE RECORDS SUMMARY | 2023-09-25 02:32 | XMS_ITS | Encounter Summary ---
Author Organization [facility] Address [address] [place] [address] Care Team Providers Care Chaser Apprentice Name Role Phone Jeff Pfeiffer MD Primary Care Provide r Encounter Details Date Type Department Care Team (Late st Contact Info) Description 04/19/2023 Lab Requisition [facility] Pathology & Laboratory Medicine - [facility] [address] [place] [address] Derrick Blue MD [address] [place] [address] [place] [phone] Elevated prostate specific antigen (PSA) Social History Tobacco Use Types Packs/Day [...] Procedure Name Priority Date/Time Associated Diagnosis Comments SURGICAL PATHOLOGY Today 04/19/2023 9:20 EST Elevated prostate specific antigen (PSA) documented in this encounter Results * SURGICAL PATHOLOGY (04/19/2023 9:20 EST) Note to Patient The following pathology results have been interpreted by your pathologist and may be available to you before your health provider has had the opportunity to review them. Please allow time for your provider to receive these results and explore management options, if applicable. 04/25/2023 6:[address] [facility] Final Diagnosis A. 1. PROSTATE, RIGHT BASE LATERAL, BIOPSY: - Benign prostatic glands and stroma. B. 2. PROSTATE, RIGHT BASE MEDIAL, BIOPSY: - Benign prostatic glands and stroma. C. 3. PROSTATE, RIGHT MID LATERAL, BIOPSY: - Prostatic tissue with focal atrophy. D. 4. PROSTATE, RIGHT MID MEDIAL, BIOPSY: - Prostatic adenocarcinoma, involving 5% (0.7 mm) of 1/1 core. - Porter Score: 3 + 3 = 6 (grade group 1). - Core: 15.2 mm E. 5. PROSTATE, RIGHT APEX LATERAL, BIOPSY: - Prostatic adenocarcinoma, involving 30% (4.4 mm) of 1/1 core. See comment. - Global Porter Score: 3 + 3 = 6 (grade group 1). - Core: 14.0 mm F. 6. PROSTATE, RIGHT APEX MEDIAL, BIOPSY: - Prostatic adenocarcinoma, involving 20% (3.3 mm) of 1/1 core. See comment. - Global Emely Score: 3 + 4 = 7 (grade group 2), 5% Porter pattern 4. - Core: 15.0 mm G. 7. PROSTATE, LEFT BASE LATERAL, BIOPSY: - High-grade prostatic intraepithelial neoplasia (PIN) H. 8. PROSTATE, LEFT BASE MEDIAL, BIOPSY: - High-grade prostatic intraepithelial neoplasia (PIN) I. 9. PROSTATE, LEFT MID LATERAL, BIOPSY: - Minute focus of high-grade prostatic intraepithelial neoplasia (PIN). J. 10. PROSTATE, LEFT MID MEDIAL, BIOPSY: - Small focus of high-grade prostatic intraepithelial neoplasia (PIN). K. 11. PROSTATE, LEFT APEX LATERAL, BIOPSY: - Prostatic adenocarcinoma, involving 1.5% (0.2 mm) of 1/1 core. - Porter Score: 3 + 3 = 6 (grade group 1). - Core: 14.1 mm L. 12. PROSTATE, LEFT APEX MEDIAL, BIOPSY: - Several small foci of atypical glands. 04/25/2023 6:[address] [facility] Diagnosis Comment Specimen E (right apex lateral) contains 4 foci of adenocarcinoma in 1 core (14.0 mm). 3+3, 2.7 mm 3+3, 1.0 mm 3+3, 0.5 mm 3+3, 0.2 mm Global score of 3 + 3 = 6 (grade group 1), 4.4 mm (30% of core) is assigned to this specimen. Specimen F (right apex medial) contains 2 foci of adenocarcinoma in 1 core (15.0 mm). 3+4 (5% pattern 4, 3.0 mm 3+3, 0.3 mm Global score of 3 + 4 = 7 (5% pattern 4) (grade group 2), 3.3 mm (20% of core) is assigned to this specimen. Immunohistochemical study was performed on (D1), (E1), (F1), (G1), (H1), (L1) to characterize atypical glands, and the immunoreactivity profiles support the diagnoses. IMMUNOHISTOCHEMISTR Y: ANTIBODY(CLONE)(BLO CK):RESULT PIN-4 (CK HMW + P63 + AMACR(RM)) (34BE12, 4A4, 13H4, Biocare) (D1): Basal cell markers: negative AMACR (P504S): positive PIN-4 (CK HMW + P63 + AMACR(RM)) (34BE12, 4A4, 13H4, Biocare) (E1): Basal cell markers: negative AMACR (P504S): positive PIN-4 (CK HMW + P63 + AMACR(RM)) (34BE12, 4A4, 13H4, Biocare) (F1): Basal cell markers: negative AMACR (P504S): positive PIN-4 (CK HMW + P63 + AMACR(RM)) (34BE12, 4A4, 13H4, Biocare) (G1): Basal cell markers: positive AMACR (P504S): focal faint positive PIN-4 (CK HMW + P63 + AMACR(RM)) (34BE12, 4A4, 13H4, Biocare) (H1): Basal cell markers: positive AMACR (P504S): negative PIN-4 (CK HMW + P63 + AMACR(RM)) (34BE12, 4A4, 13H4, Biocare) (L1): Basal cell markers: patchy positive AMACR (P504S): positive NOTE: One or more of the reagents used in immunoperoxidase testing in this case may not have been cleared or approved by the U.S. Food and Drug Administration (FDA). The FDA has determined that such clearance or approval is not necessary. These tests are used for clinical purposes. They should not be regarded as investigational or for research. These reagents' performance characteristics have been determined by [facility] and/or by the referring laboratory. The positive and negative controls worked appropriately. If immunoperoxidase staining has been performed on alcohol fixed cytology specimens, which has not been fully validated, the assays should be interpreted with caution and correlated with clinical data. This laboratory is certified under the Clinical Laboratory Improvement Amendments of 1988 (CLIA-88) as qualified to perform high complexity clinical laboratory testing. Deeper sections of (K1) have been examined. This case was presented and reviewed at the intradepartmental consultation conference. 04/25/2023 6:14 [facility] Attestation There was significant resident/fellow involvement in the diagnostic evaluation of this case. By the signature below, the attending physician certifies that they have personally conducted a gross and/or microscopic examination of the described specimens and rendered or confirmed the above diagnosis. 04/25/2023 6:14 [facility] at 0614 Clinical History Elevated PSA; clinical diagnosis code: R97.20 04/25/2023 6:14 [facility] Gross Description A. Received in formalin labelled with proper patient identification (initials N, W) and right base Lat is a single oliva-white tissue core (1.8 cm in length x 0.1 cm in diameter). Submitted intact in A1. B. Received in formalin labelled with proper patient identification (initials N, W) and right base med is a single oliva-white tissue core (1.9 cm in length x 0.1 cm in diameter). Submitted intact in B1. C. Received in formalin labelled with proper patient identification (initials N, W) and right mid Lat is a single oliva-white tissue core (1.5 cm in length x 0.1 cm in diameter). Submitted intact in C1. D. Received in formalin labelled with proper patient identification (initials N, W) and right mid med is a single oliva-white tissue core (1.7 cm in length x 0.1 cm in diameter). Submitted intact in D1. E. Received in formalin labelled with proper patient identification (initials N, W) and right apex Lat is a single oliva-white tissue core (1.6 cm in length x 0.1 cm in diameter). Submitted intact in E1. F. Received in formalin labelled with proper patient identification (initials N, W) and right apex med is a single oliva-white tissue core (1.5 cm in length x 0.1 cm in diameter). Submitted intact in F1. G. Received in formalin labelled with proper patient identification (initials N, W) and left base Lat is a single oliva-white tissue core (2.0 cm in length x 0.1 cm in diameter). Submitted intact in G1. H. Received in formalin labelled with proper patient identification (initials N, W) and left base med is a single oliva-white tissue core (1.5 cm in length x 0.1 cm in diameter). Submitted intact in H1. I. Received in formalin labelled with proper patient identification (initials N, W) and left mid Lat is a single oliva-white tissue core (1.4 cm in length x 0.1 cm in diameter). Submitted intact in I1. J. Received in formalin labelled with proper patient identification (initials N, W) and left mid med is a single oliva-white tissue core (1.5 cm in length x 0.1 cm in diameter). Submitted intact in J1. K. Received in formalin labelled with proper patient identification (initials N, W) and left apex Lat is a single oliva-white tissue core (1.7 cm in length x 0.1 cm in diameter). Submitted intact in K1. L. Received in formalin labelled with proper patient identification (initials N, W) and left apex med is a single oliva-white tissue core (1.7 cm in length x 0.1 cm in diameter). Submitted intact in L1. Jolanta Coe 04/20/2023 13:46 04/25/2023 6:14 [facility] Resident/Fell ow: Klever Peralta MD 04/25/2023 6:14 [facility] Performing Lab [facility] 04/25/2023 6:14 [facility] Scanned Images 04/25/2023 6:14 [facility] Tissue PROSTATIC STRUCTURE / Unknown 04/19/2023 9:20 EST 04/19/2023 17:45 EST Tissue specimen (specimen) PROSTATIC STRUCTURE / Unknown 04/19/2023 9:20 EST 04/19/2023 17:45 EST Tissue specimen (specimen) PROSTATIC STRUCTURE / Unknown 04/19/2023 9:20 EST 04/19/2023 17:45 EST Tissue specimen (specimen) PROSTATIC STRUCTURE / Unknown 04/19/2023 9:20 EST 04/19/2023 17:45 EST Tissue specimen (specimen) PROSTATIC STRUCTURE / Unknown 04/19/2023 9:20 EST 04/19/2023 17:45 EST Tissue specimen (specimen) PROSTATIC STRUCTURE / Unknown 04/19/2023 9:20 EST 04/19/2023 17:45 EST Tissue specimen (specimen) PROSTATIC STRUCTURE / Unknown 04/19/2023 9:20 EST 04/19/2023 17:45 EST Tissue specimen (specimen) PROSTATIC STRUCTURE / Unknown 04/19/2023 9:20 EST 04/19/2023 17:45 EST Tissue specimen (specimen) PROSTATIC STRUCTURE / Unknown 04/19/2023 9:20 EST 04/19/2023 17:45 EST Tissue specimen (specimen) PROSTATIC STRUCTURE / Unknown 04/19/2023 9:20 EST 04/19/2023 17:45 EST Tissue specimen (specimen) PROSTATIC STRUCTURE / Unknown 04/19/2023 9:20 EST 04/19/2023 17:45 EST Tissue specimen (specimen) PROSTATIC STRUCTURE / Unknown 04/19/2023 9:20 EST 04/19/2023 17:45 EST Derrick Blue MD PATHOLOGY ORDERAB LES [facility] [address] [place], [place] [address] documented in this encounter Visit Diagnoses Diagnosis Elevated prostate specific antigen (PSA) documented in this encounter Care Teams Chaser Apprentice Relationship Specialty Start Date End Date Jeff Pfeiffer MD [address] [place] [address] [address] [place], [place] [address] PCP - General 08/27/22 documented as of this encounter
--- OUTSIDE RECORDS SUMMARY | 2023-09-25 02:32 | XMS_ITS | Encounter Summary ---
Author Organization [facility] Address [address] [place] [address] Care Team Providers Care Surfboard Designer Name Role Phone Jeff Pfeiffer MD Primary Care Provide r Encounter Details Date Type Department Care Team (Late st Contact Info) Description 05/24/2021 Lab Requisition [facility]ology & [facility] Medicine - [facility] [address] [place] [address] Outr Resulting Lab, Provider Social History Tobacco [...] Associated Diagnosis Comments PSA TOTAL, DIAGNOSTIC Routine 05/23/2021 8:54 EDT documented in this encounter Results * PSA TOTAL, DIAGNOSTIC (05/23/2021 8:54 EDT) PSA 3.1 <=4.5 ng/mL 05/24/2021 17:35 EDT [facility] Blood VENOUS BLOOD / Unknown 05/23/2021 8:54 EDT 05/24/2021 16:31 EDT Narrative [facility] - 05/24/2021 17:35 EDT NOTE: Serum PSA concentration should not be interpreted as absolute evidence for the presence or absence of malignant disease. Assayed on Siemens [employer] [facility] XPT using chemiluminescent technology.??Values obtained by using different assay methods cannot be used interchangeably. Provider Outr Resulting Lab CHEMISTRY & BLOOD GAS ORDERABLES [facility] [address] [place] [address] documented in this encounter Visit Diagnoses Not on filedocumented in this encounter Care Teams Surfboard Designer Relationship Specialty Start Date End Date Jeff Pfeiffer MD [address] [id number] PCP - General 08/27/22 documented as of this encounter
--- OUTSIDE RECORDS SUMMARY | 2023-09-25 02:32 | XMS_ITS | Encounter Summary ---
Author Organization [facility] [place] [address] Care Team Providers Care Dietitian Research Name Role Phone Jeff Pfeiffer MD Primary Care Provider [phone] Encounter Details Date Type Department Care Team (Latest Contact Info) Description 03/14/2023 Travel Social History Tobacco Use Types Packs/Day [...] PM EDT Office Visit Radiation Oncology at [address] [phone] Leroy Berumen MD [address] [place] [address] DR RADIATION ONCOLOGY [place], [place] [address] 10/10/2023 3:00 PM EDT Infusion Hematology Oncology at [address] [phone] documented as of this encounter Visit Diagnoses Not on filedocumented in this encounter Care Teams Dietitian Research Relationship Specialty Start Date End Date Jeff Pfeiffer MD [address] [place] [address] PCP - General Family Medicine 03/12/23 documented as of this encounter
--- OUTSIDE RECORDS SUMMARY | 2023-09-25 02:32 | XMS_ITS | Encounter Summary ---
Author Organization [facility] Address [facility] [place] [address] Care Team Providers Care Stunt Driver Name Role Phone Jeff Pfeiffer MD Primary Care Provider [phone] Encounter Details Date Type Department Care Team (Late st Contact Info) Description 07/11/2023 Notes Only Radiation Oncology at [address] [phone] Leroy Berumen MD [address] [place] [address] [place] [address] Social History Tobacco Use Types Packs/Day Years Used Date Smoking Tobacco: Former Cigarettes Q uit: 1989 Smokeless Tobacco: Never Alcohol Use Standard Drinks/Week Comments Yes 15 (1 standard drink = 0.6 oz pu re alcohol) [facility] Utilities Answer Date Recorded In the past 12 months has th e electric, gas, oil, or water [employer] threatened to shut off services in your [...] place to sleep or slept in a snf (including now)? No 06/19/2023 Sex and Gender Information Value Date Recorded Sex Assigned at Not on file Gender Identity Not on file Sexual Orientation Not on file documented as of this encounter Progress Notes * Leroy Berumen MD - 07/11/2023 11:30 AM EDT Images from the original note were not included. documented in this encounter Plan of Treatment Upcoming Encounters Date Type Department Care Team (Late st Contact Info) Description 10/10/2023 2:30 PM EDT Office Visit Radiation Oncology at [address] [phone] Leroy Berumen MD [address] [place] [address] DR RADIATION ONCOLOGY [place], [place] [id number] 10/10/2023 3:00 PM EDT Infusion Hematology Oncology at [address] [phone] documented as of this encounter Visit Diagnoses Not on filedocumented in this encounter Care Teams Stunt Driver Relationship Specialty Start Date End Date Jeff Pfeiffer MD [address] [place] [address] PCP - General Family Medicine 03/12/23 documented as of this encounter
--- OUTSIDE RECORDS SUMMARY | 2023-09-25 02:32 | XMS_ITS | Encounter Summary ---
Author Organization [facility] Address [facility] [place] [address] Care Team Providers Care Automation Tender Name Role Phone Jeff Pfeiffer MD Primary Care Provider [phone] Encounter Details Date Type Department Care Team (Late st Contact Info) Description 07/18/2023 8:30 AM EDT Office Visit Radiation Oncology at [address] [phone] Leroy Berumen MD [address] [place] [address] [place] [address] Malignant neoplasm of prostate Social History Tobacco Use Types Packs/Day Years Used Date Smoking Tobacco: Former Cigarettes Q uit: 1989 Smokeless Tobacco: Never Alcohol Use Standard Drinks/Week Comments Yes 15 (1 standard drink = 0.6 oz pu re alcohol) [facility] Utilities Answer Date Recorded In the past [...] place to sleep or slept in a custodial (including now)? No 06/19/2023 Sex and Gender Information Value Date Recorded Sex Assigned at Not on file Gender Identity Not on file Sexual Orientation Not on file documented as of this encounter Last Filed Vital Signs Vital Sign Reading Time Taken Comments Blood Pressure 131/75 07/18/2023 8:28 AM EDT Pulse 67 07/18/2023 8:28 AM EDT Temperature 37.1 ??C (98.8 ??F) 07/18/2023 8:28 AM ED T Respiratory Rate 16 07/18/2023 8:28 AM EDT Oxygen Saturation 100% 07/18/2023 8:28 AM EDT Inhaled Oxygen Concentration - - Weight 73.6 kg (162 lb 3.2 oz) 07/18/2023 8:28 A M EDT Height - - Body Mass Index - - documented in this encounter Progress Notes * Leroy Berumen MD - 07/18/2023 8:30 AM EDT Images from the original note were not included. Radiation Oncology Established Patient Follow Up Note Leroy Berumen MD, MS [facility] PATIENT IDENTIFICATION: PATIENT NAME: Rolando Brown DATE OF : 1955 PRIMARY CARE PROVIDER: Jeff Pfeiffer MD DATE OF SERVICE: 07/18/2023 PATIENT SUMMARY: Rolando is a 68 y.o.M with favorable intermediate risk prostate cancer previously seen in consultation. As we left the discussion at our last visit, he was considering the various radiation therapy options including vs RT. He was inclined to proceed with , pending a confirmatory Decipher result. INTERVAL SUBJECTIVE HISTORY: Since last seen, Rolando reports feeling in his overall usual state of health. He otherwise reports no change in his overall medical condition and is here today to further discuss the treatment plan for his prostate cancer. INTERVAL OBJECTIVE HISTORY: Decipher - high risk (0.72) PHYSICAL EXAM: BP 131/75 (Patient Position: Sitting) Pulse 67 Temp 37.1 ??C (98.8 ??F) (Temporal) Resp 16 Wt 73.6 kg (162 lb 3.2 oz) SpO2 100% General: alert, appears stated age, and in no distress sitting in exam room alone TODAY'S PERFORMANCE STATUS: KPS Score ECOG Grade Definition XX 90-100 0 Fully active, able to carry on all pre-disease performance without restriction 70-80 1 Restricted in physically strenuous activity but ambulatory and able to carry out work of a light or sedentary nature, e.g., light house work, office work 50-60 2 Ambulatory and capable of all selfcare but unable to carry out any work activities; up and about more than 50% of waking hours 30-40 3 Capable of only limited selfcare; confined to bed or chair more than 50% of waking hours 10-20 4 Completely disabled; cannot carry on any selfcare; totally confined to bed or chair ASSESSMENT / PLAN: 68M w Fav IR prostate cancer (cT1c, GG2, PSA 6) initially considering but now with a more concerning Decipher result. Given this information he is leaning towards definitive treatment. Logistics, toxicities and complications of ST-ADT + pelvic / prostatic radiation were reviewed withthe patient today. He has some travel coming up this summer and would like to [place] back after returning from [facility] in late September. I affirmed my support for this timetable - we have him scheduled for a return visit on 10/09. All of Rolando's questions were answered to his fullest satisfaction, and we have provided him with our contact information should any further questions or concerns arise. TIME ATTESTATION: I certify spending at least 40 minutes in providing care to this patient today, 07/18/23 as reflected by the following activities: - review of his medical record in the chart, including interpretation of laboratory studies referenced above - discussion of the above with the patient as part of shared medical decision making - documenting the outcome of today's visit as above LEROY BERUMEN MD, MS documented in this encounter Plan of Treatment Upcoming Encounters Date Type Department Care Team (Late st Contact Info) Description 10/10/2023 2:30 PM EDT Office Visit Radiation Oncology at [address] [phone] Leroy Berumen MD [address] [place] [address] RADIATION ONCOLOGY [place], [place] [id number] 10/10/2023 3:00 PM EDT Infusion Hematology Oncology at [address] [phone] documented as of this encounter Visit Diagnoses Diagnosis Malignant neoplasm of prostate documented in this encounter Care Teams Automation Tender Relationship Specialty Start Date End Date Jeff Pfeiffer MD [address] [place] [address] PCP - General Family Medicine 03/12/23 documented as of this encounter
--- OUTSIDE RECORDS SUMMARY | 2023-09-25 02:32 | XMS_ITS | Encounter Summary ---
Author Organization [facility] [place] [address] Care Team Providers Care Wheel Press Operator Name Role Phone Jeff Pfeiffer MD Primary Care Provider [phone] Encounter Details Date Type Department Care Team (Late Contact Info) Description 05/30/2023 Telephone Radiation Oncology at [address] [phone] Melba Soler Social History Tobacco Use Types Packs/Day Years Used Date Smoking Tobacco: Never Assessed Sex and Gender Information Value Date Recorded Sex Assigned at Not on file Gender Identity Not on file Sexual Orientation Not on file documented as of this encounter Miscellaneous Notes * Telephone Encounter - Melba Soler - 05/30/2023 3:07 PM EDT Radiation Oncology New Patient Scheduling Note I called Rolando to inform him that Dr. Blue has referred him to see Dr. Berumen for a radiation new patient consultation. I have confirmed his appointments on 06/20/23 will include a 30 minute visit at 8:30am to see our clinic nurse, followed by a [address] Berumen. I have requested that he arrive 15 minutes early in order to complete paperwork. I confirmed our address and answered all of his questions, and our contact information should any further questions or concerns arise. documented in this encounter Plan of Treatment Upcoming Encounters Date Type Department Care Team ([facility] Contact Info) Description 10/10/2023 2:30 PM EDT Office Visit Radiation Oncology at [address] [phone] Leroy Berumen MD [address] [place] [address] DR RADIATION ONCOLOGY [place], [place] [address] 10/10/2023 3:00 PM EDT Infusion Hematology Oncology at [address] [phone] documented as of this encounter Visit Diagnoses Not on filedocumented in this encounter Care Teams Wheel Press Operator Relationship Specialty Start Date End Date Jeff Pfeiffer MD [address] [place] [address] PCP - General Family Medicine 03/12/23 documented as of this encounter
--- OUTSIDE RECORDS SUMMARY | 2023-09-25 02:32 | XMS_ITS | Encounter Summary ---
Author Organization [facility] [place] [address] Care Team Providers Care Sluice Tender Name Role Phone Jeff Pfeiffer MD Primary Care Provider [phone] Reason for Visit * Consultation (Routine) - Closed Specialty Diagnoses / Procedures Referred By Neil keller Referred To Contact Radiation Oncology Diagnoses Malignant neoplasm of prostate Derrick Blue MD [address] [place] [address] Leroy Berumen MD [address] [place] [address] [place] [address] Referral ID Status Reason Start Date Expiration Date V isits Requested Visits Authorized [id number] Closed Consult, Test & Treat 05/30/2023 05/29/2024 1 1 Encounter Details Date Type Department Care Team (Late st Contact Info) Description 06/19/2023 11:00 AM EDT Office Visit Radiation Oncology at [address] [phone] Leroy Berumen MD [address] [place] [address] [place] [address] Malignant neoplasm of prostate Social History Tobacco Use Types Packs/Day Years Used Date Smoking Tobacco: Former Cigarettes Q uit: 1989 Smokeless Tobacco: Never Tobacco Cessation:Counseling Given: Not Answered Alcohol Use Standard Drinks/Week Comments Yes 15 (1 standard drink = 0.6 oz pu re alcohol) [facility] Utilities Answer Date Recorded In the past 12 months has Teal[employer], gas, oil, or water [employer] threatened to shut off services in your [...] place to sleep or slept in a fpc (including now)? No 06/19/2023 Sex and Gender Information Value Date Recorded Sex Assigned at Not on file Gender Identity Not on file Sexual Orientation Not on file documented as of this encounter Last Filed Vital Signs Vital Sign Reading Time Taken Comments Blood Pressure 143/79 06/19/2023 10:51 AM EDT Pulse 74 06/19/2023 10:51 AM EDT Temperature 37.1 ??C (98.8 ??F) 06/19/2023 10:51 AM E DT Respiratory Rate 18 06/19/2023 10:51 AM EDT Oxygen Saturation 97% 06/19/2023 10:51 AM EDT Inhaled Oxygen Concentration - - Weight 72.8 kg (160 lb 9.6 oz) 06/19/2023 10:51 AM EDT Height - - Body Mass Index - - documented in this encounter Patient Instructions * Patient Instructions* Leroy Berumen MD - 06/19/2023 11:00 AM EDT Images from the original note were not included. Dear Mr. Brown, Dr. Blue asked for me to see you to discuss how radiation therapy can be used to treat your prostate cancer and this note is to recap our discussion regarding use of radiation treatments. As your radiation oncologist, I work closely with your other healthcare providers and most importantly, with you to make sure that the treatments we discuss and offer keep your personal preferences and goals in mind. We discussed the following next steps as part of your cancer evaluation and/or treatment: 1. The aggressiveness of your prostate cancer: You technically have favorable intermediate risk prostate cancer, which is a risk given to your cancer of coming back after treatment. This is based on three things 1. Your PSA (the blood test) was 8. PSA values below 10 are considered low risk and 10-20 are considered medium risk. 2. Your highest Emely Group score was 2 (this is how aggressive your prostate cancer looks under the microscope). Emely scores for cancer range from 1-5, and 1 is considered lowest risk, while 5 is highest risk. 3. How aggressive your prostate cancer felt when Dr. Blue did the prostate exam (through the rectum) and how it looked on the MRI. He did not feel any cancer at all or see any evidence of cancer beyond the edge of the prostate. 2. Treatment Options for Favorable Intermediate Risk prostate cancer: Overall, the decision to treat prostate cancer is based on both the risk that the cancer can kill you and your general overall health. There are several treatment options to consider, all with various advantages and disadvantages. A. One option is called 'active surveillance,' which means closely following your prostate cancer and treating it only if it becomes more aggressive. A typical active surveillance approach would involve repeated rectal exams (yearly) and PSA's (at least twice yearly), repeated biopsies (every 2 years or so, likely with an MRI). We would then watch your PSA closely and if it begins to rise quickly, if the rectal exam shows a prostate nodule, or if future biopsies show more aggressive disease, treatment would be offered and more strongly recommended than it is today. The benefit to this approach is that your prostate cancer may never become aggressive enough to shorten or even negatively impact your life. Avoiding treatment could spare you the side effects (and hassle) of going through radiation or surgery. If you are uncertain about proceeding with surveillance we could order a genetic test called Decipher that gives us a score of 0-1 of how aggressive your prostate cancer seems to be. A lower score would be reassuring that we can safely watch this cancer. This is usually (but not always) covered by insurance, and costs about $400. If you choose to proceed with surveillance, the next step would be for me to refer you either back to Dr Blue or to the Active Surveillance Clinic at [facility], which is run by our prostate cancer surgeons. B. External beam radiation or surgery: If you decline active surveillance and wish to pursue treatment, both radiation and surgery are excellent options with cure rates >90%. Our meeting here today is to review the external beam radiation option offered here, which involves daily radiation treatments, 5 days a week M- F for 5.5 weeks. C. Radioactive seed implants (brachytherapy): While the form of radiation which we offer here involves shooting radiation into your prostate from the outside, I can refer you to my colleague Dr. Tavares in [place], who specializes in the placement of radioactive seeds into the prostate, which lisa one-time procedure. D. SBRT (radiosurgery): This is a relatively new way to treat prostate cancer, which involves just 5 very high dose radiation treatments. Side effects might be slightly higher with this treatment as compared to the 5.5 week approach. 3. Fiducial Marker and SpaceOAR gel implants: If you choose external beam radiation treatments, thefirst step is for you to return to our clinic so that we can place small gold markers (called fiducials) into the prostate, which help us visualize the prostate on a daily basis prior to treating youwith radiation. These small gold seeds are about the size of a grain of rice, and we will place oneinto each side of the prostate. At the same time as placing the prostate fiducial markers in your prostate, I will implant a gel called SpaceOAR, which involves an injection of the gel into the space between the prostate and rectum, to decrease the amount of radiation that goes to the rectum. These procedures will be performed here in our clinic, and our nursing team will provide you instructions with how to prepare yourself. 4. Radiation Therapy and Planning: Radiation therapy involves using high energy radiation which kills cancer but also normal healthy tissues. In order to make sure the radiation goes to the canceroustissues and to also avoid radiating the normal tissues, we design radiation beams beams into special shapes which come from various different directions. Because no two people and no two cancers are completely identical, the radiation plan we create for you will be unique to you and your body. In order to figure out how many beams to use, how much radiation to give, which angles they should come from, and how they should be shaped, we have asked you to undergo 2 mapping scans: one is done here in our department known as a CT simulation, or CT sim, for short. This is essentially a CAT-scan similar to scans which you may have received before, but slightly different in a few ways: First, it allows us to place you in the exact same position which you should expect to be placed during each of your radiation treatment sessions. Second, it lets us better understand where the radiation targets and the normal tissues that we want to avoid exist, in relation to each other and the radiation beams. The second scan is a prostate MRI which we do at [facility], that allows us to better see your prostate. Following these scans, we then perform additional calculations and measurements to create the absolute best plan possible for you. Depending on the complexity of the plan, these processes can take from just few hours to several days, and for that we ask for your patience. If you have any questions about the planning process or your custom radiation plan, I would be more than happy to review the plan with you during your first week of treatment. I anticipate you would receive 28 treatments total, daily Saturday-Saturday for 5.5 weeks. Your start date and time would be provided once the simulation scan is completed. During your radiation treatments, you can expect to see me once per week so that I can examine you to make sure you are tolerating radiation treatments and so that we can monitor your response to treatment. 5. Short Term Toxicity (Side Effects) of Radiation: We discussed some common temporary side effectsthat you may experience during radiation. Common side effects may include irritative symptoms of the bladder or prostate, which can result in more frequent urination or defecation. Other common side effects mahy include weakened urinary stream or burning with urination. If you experience any of these, please let us know so that we can help to treat them. These typically resolve within 4-6 weeks of completion radiation. 6. Bean Snapper Complications: These are more worrisome and are due to permanent damage of the radiated tissues, including the rectum/bowel, bladder, prostate and surrounding tissues. Potential serious injury is rare, but can include poor wound healing, bleeding, or destruction of healthy tissue that may require surgery to repair and may result in a colostomy (bag for defecation) or urostomy (bag for urination). There may be a slow, terminal carman decrease in your sexual function as well, which is partly due to the aging process but also partly due to radiation side effects. This is typically responsive to medications like Viagra. Finally, there is a risk that radiation to your prostate increases the chance of getting another cancer caused by radiation, possibly of the prostate, bladder, rectum or surrounding tissues. This risk is overall quite low (approximately 1% above your normal risk for each 10 years you are alive), but is something to be aware of. Please do not hesitate to call me at [phone] with any other questions or concerns you have. IfI am not here, one of our radiation oncology nurses can assist you or help you get in touch with me. A Radiation Oncology doctor is also canadian bacon tier after our normal hours and on weekends for urgent questions or concerns related to radiation treatments that can not wait until normal business hours. To reach the on-call doctor after-hours, just call and have the soaking room operator page the Radiation Oncologist canadian bacon tier. And, as always, if you experience any life-threatening emergencies which any include the following,you need to seek emergency care immediately by calling 911: 1. Sudden and unexpected breathing difficulty without any exertion 2. Sudden onset of chest pain 3. Sudden onset of severe pain or uncontrolled pain 4. Sudden onset of severe weakness and/or unable to walk 5. Sudden new onset of a seizure 6. Fall resulting in injury 7. Uncontrollable bleeding Sincerely, Leroy Berumen MD, MS Radiation Oncology documented in this encounter Progress Notes * Leroy Berumen MD - 06/19/2023 11:00 AM EDT Images from the original note were not included. Radiation Oncology Prostate Cancer Consult Note Leroy Berumen MD, MS [facility] [phone] PATIENT IDENTIFICATION: PATIENT NAME: Rolando Brown DATE OF : 1955 REFERRING PROVIDER: Dr Blue PRIMARY CARE PROVIDER: Dr Pfeiffer REASON FOR CONSULTATION : Cancer Staging Malignant neoplasm of prostate Staging form: Prostate, AJCC 8th Edition - Clinical: Stage IIB (cT1c, cN0, cM0, PSA: 8.6, Grade Group: 2) - Signed by Leroy Berumen MD on 06/14/2023 HISTORY OF PRESENT ILLNESS: Rolando Brown is a 68 y.o. male recently diagnosed with a favorable intermediate- risk prostate cancer. Presenting Symptoms / Duration: ePSA Prior consultations / recommendations: Dr Khanna - office visit - 07/26/22 - DIVYA revealed enlarged nonnodular prostate Dr Blue - office visit - 05/24/23 - patient interested in RT > , RP PSA History: 05/20/19 2.6 05/19/20 2.9 05/23/21 3.1 05/24/22 4.8 06/25/22 5.0 01/24/23 8.6 Pertinent Imaging Studies: mpMRI 03/14/23 78cc gland P4 lesion right ant PZ at apex No SVI / LAD / SUBHA Bone Scan 05/22/23 No metastases Pathology Results / Location: [facility] Bx - Dr Blue - 04/19/23 GG2 x 1 of 12 GG1 x 3 of 12 Rolando is here today to discuss radiation therapy for treatment of his recently diagnosed prostate cancer. REVIEW OF SYSTEMS: 06/19/2023 10:21 AM REVIEW OF SYSTEMS Constitutional None of the above Ear / nose / throat / mouth None of the above Eyes None of the above Respiratory None of the above Cardiovascular None of the above Gastrointestinal None of the above Skin, hair None of the above Musculoskeletal Joint stiffness Neurological None of the above Hematologic / Lymphatic None of the above Genitourinary None of the above Other Symptoms diagnosed with PMR Most recent colonoscopy was 2020. A comprehensive 14 point review of systems was conducted with this patient and is otherwise negative except as documented above. Baseline SRIKANTH and IPSS are as below: 06/19/2023 10:25 AM Prostate Scores and Responses Confidence, level - past 6 months Very High Penetration - past 6 months Almost always or always Penetration, maintain - past 6 months Almost always or always Erection, maintain - past 6 months Not difficult Sexual satisfaction - past 6 months Almost always or always Sexual Health in Men 25 06/19/2023 10:24 AM IPSS Responses International Prostate Symptom Score 7 ( Mild LUTS) IPSS: ncomplete emptying Not at all IPSS: Frequency Less than half the time IPSS: Intermittency Less than 1 time in 5 IPSS: Urgency Less than 1 time in 5 IPSS: Weak Stream Less than 1 time in 5 IPSS: Straining Less than 1 time in 5 IPSS: Nocturia 1 time IPSS: Quality of life Mixed - about equally satisfied and dissatisfied No data to display PAST MEDICAL HISTORY Past Medical History: Diagnosis Date BPH (benign prostatic hyperplasia) HSV (herpes simplex virus) infection Melanoma 2005 PMR (polymyalgia rheumatica) Seborrheic dermatitis Past Surgical History: Procedure Laterality Date INGUINAL HERNIA REPAIR 2003 KNEE SURGERY Right ROTATOR CUFF REPAIR Left CONTRAINDICATIONS TO RADIATION THERAPY: None Prior radiation therapy: No Active Lupus: No Systemic Scleroderma: No MEDICATIONS: Medications 06/19/23 1054 Medication Sig Taking? atorvastatin (Lipitor) 40 mg tablet Take 20 mg by mouth Daily @ 0600. Yes cholecalciferol (Vitamin D3) 1,000 unit tablet Take 1,000 Units by mouth daily. Yes predniSONE (Deltasone) 1 mg tablet Take 1 mg by mouth daily. Yes tamsulosin (Flomax) 0.4 mg capsule Take 1 capsule by mouth nightly. Yes ubiquinone (Ubiquinone) 100 mg capsule Take 125 mg by mouth daily. Yes acyclovir (Zovirax) 400 mg tablet Take 400 mg by mouth as needed (coldsores). Yes ALLERGIES: No Known Allergies SOCIAL HISTORY: [place]: [facility] Living Situation: Lives alone Transit time to 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 man diagnosed with favorable intermediate-risk prostate cancer (cT1c, GG2,PSA 8.6). Today we reviewed the risks, benefits, rationale, implications and alternatives of the various management options, which include radical prostatectomy, radiation therapy, and active surveillance withdelayed curative intent. Active surveillance was reviewed in detail including molecular testing stacie surveillance schedule, which would involve serial PSA and repeat biopsies in 1-2 years. Fortunately he was well informed regarding these options, especially the surgical approach by Dr. Blue, so we spent the remainder of the discussion focusing on radiation therapy. With regard to his radiation options, I considered the following: SBRT to the prostate Moderately hypofractionated RT to the prostate LDR brachytherapy to the prostate HDR brachytherapy to the prostate In the short term, I reviewed the common irritative bowel and bladder side effects associated with all forms of radiotherapy. In the terminal carman, I explained there is an approximately 2% chance of serious bladder or rectal toxicity as well as a very low risk of inducing a secondary malignancy. I alsoreviewed that with radiation there are few reliable salvage curative options. Logistics of external beam treatment were also reviewed, including the role of fiducial marker placement possibly with spaceOAR hydrogel placement, simulation, and treatment. Logistics of HDR brachytherapy were also reviewed, including the fact that I would refer his case to Dr Gurvinder Ugarte at [facility] who routinely performs these implants. ADT was not recommended given the favorable risk profile. This was considered with the results of RTOG 0815 in mind. However he has minimal GG2 disease and given the side effects which can occur, including diminished libido, hot flashes, weight gain, mood swings, depression and/or osteoporosis, I do not recommend ADT in this scenario. We discussed molecular testing can provide some greater detailas to whether ADT may be of benefit. Clinical trials were also reviewed briefly. He is not a candidate for any currently open trials at [facility]. If his PSA was >10 he would be eligible for NRG 010. On balance, Rolando wishes to proceed with recheck of PSA. If it is <10 then we will confirm withDecipher before proceeding towards surveillance in the event that he is Decipher LR. If it is >10 (which is on track for a >50% increase w/in 12 months) or his Decipher returns as IR/HR, then he is more inclined to pursue treatment. Follow-up appointments will be made accordingly. All of his questions were answered to his satisfaction, and we have provided him with our contact information should any further questions or concerns arise. SUMMARY OF PLAN / RECOMMENDATION: Intent of therapy: Curative Clinical Trial Availability: No Recheck PSA --> Decipher if <10, treat if >10 Time Attestation: I certify spending at least 60 minutes in providing care to this patient today, 06/19/23 as reflected by the following activities: - review of his medical record in the chart, including interpretation of imaging, laboratory and pathologic studies referenced above - discussion of the above with the patient as part of shared medical decision making - documenting the outcome of today's visit as above LEROY BERUMEN MD, MS * Leesa Randall RN - 06/19/2023 11:00 AM EDT RADIATION ONCOLOGY NURSING INITIAL NURSING ASSESSMENT Chief complaint: Prostate CA NPW ADVANCE DIRECTIVES: did not discuss today PRESENTING SYSTEMS and PATHOLOGY: Urination improved since starting on Flomax. No longer has weak stream or intermittency REVIEW OF SYSTEMS: see questionnaire Medical history: Past Medical History: Diagnosis Date BPH (benign prostatic hyperplasia) HSV (herpes simplex virus) infection Hyperlipidemia Melanoma 2004 PMR (polymyalgia rheumatica) Rotator cuff tear Seborrheic dermatitis Tubulovillous adenoma of colon Surgical history: Last colonoscopy - 2020 Past Surgical History: Procedure Laterality Date INGUINAL HERNIA REPAIR 2003 KNEE SURGERY Right ROTATOR CUFF REPAIR Left Social History: Driving from - [facility] [place] Lives with - Alone. 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 Alcohol/Drug/Tobacco use - 2 glasses of wine per night. Former smoker - quit in 1989. Occasionally uses MJ gummies Social History Socioeconomic History Marital status: Spouse name: Not on file Number of children: Not on file Years of education: Not on file Highest education level: Not on file Occupational History Not on file Tobacco Use Smoking status: Former Types: Cigarettes Quit date: 1989 Years since quittin.3 Smokeless tobacco: Never Substance and Sexual Activity Alcohol use: Yes Alcohol/week: 15.0 standard drinks of alcohol Types: 15 Glasses of wine per week Drug use: Not on file Sexual activity: Not on file Other Topics Concern Not on file Social History Narrative Not on file Social Determinants of Health Financial Resource Strain: Low Risk (06/19/2023) Overall Financial Resource Strain (CARDIA) Difficulty of Paying Living Expenses: Not very hard Food Insecurity: No Food Insecurity (06/19/2023) Hunger Vital Sign Worried About Running Out of Food in the Last Year: Never true Ran Out of Food in the Last Year: Never true Transportation Needs: No Transportation Needs (06/19/2023) PRAPARE - Transportation Lack of Transportation (Medical): No Lack of Transportation (Non-Medical): No Physical Activity: Not on file Intimate Partner Violence: Not on file Housing Stability: Low Risk (06/19/2023) Housing Stability Vital Sign Unable to Pay for Housing in the Last Year: No Number of Places Lived in the Last Year: 1 Unstable Housing in the Last Year: No Family History of cancer: Family History Problem Relation Age of Onset Cancer Mother Cancer Maternal Uncle Prior Radiotherapy: No Site: Date: Facility: Prior Chemotherapy: No Drug: Oncologist- LastTreatment: Prior hormone treatment/medications: No Drug: LastTreatment: RADIATION SPECIFIC REVIEW: NO: YES: Claustrophobia or requires sedation for MRIs X Allergy to CT or MRI contrast agent or iodine or shellfish X Diabetic and on metformin X Metal in body, implanted device, worked with metal, body piercings,braces Screws in shoulder and knee hearing device X Dentures X Pacemaker X Difficulty breathing while lying flat X H/O Sclera derma X Currently X Active lupus X Kidney problems/creatinine X Balance difficulty: No At risk for fall: No If yes, actions implemented to prevent fall: Patient/family instructed to avoid independent ambulation. Use wheelchair and ask for assistance of staff while in the clinic. ADL [ X ] no limits [ ] needs dressing assistance [ ] needs meal assistance Assistive device:[X ]none [ ]cane [ ]walker [ ]wheelchair [ ]other: explain PAIN ASSESSMENT: [0 ] out of 10 Location: Description: [ ] Dull [ ] Sharp [ ] Burning [ ] Throbbing [ ] Radiating [ ] Continuous [ ]Intermittent Aggravating Factors: [ ] Movement [ ] Position [ ]Immobility [ ]Other Alleviating Factors: [ ]Medication [ ] Positioning [ ] Other Current Pain Management Plan: [ ]Satisfied [ ] Not satisfied SOCIAL ASSESSMENT: See EDH social assessment information entered. Support Systems: Bluetests transportation plan: [ X]private vehicle [ ] RCT needs Social Work referral [ ] Unknown at this time needs Social Work referral Barriers to treatment: None Referrals/Interventions: Will see PRESS SMITH HELPER per routine during SIM appointment. TEACHING: Learning Assessment Does the primary learner have any barriers to learning?: No Barriers How does the primary learner prefer to learn new concepts?: Listening, Reading, Pictures/Video Education material provided: Will be provided during SIM appointment per routine documented in this encounter Plan of Treatment Upcoming Encounters Date Type Department Care Team (Late st Contact Info) Description 10/10/2023 2:30 PM EDT Office Visit Radiation Oncology at [address] [phone] Leroy Berumen MD [address] [place] [address] [place] [address] 10/10/2023 3:00 PM EDT Infusion Hematology Oncology at [address] [phone] Scheduled Orders Name Type Priority Associated Diagnoses Orde r Schedule PSA (Ultrasensitive) Lab Routine Malignant neoplasm of prostate Expected: 06/19/2023 (Approximate), Expires: 12/19/2023 documented as of this encounter Visit Diagnoses Diagnosis Malignant neoplasm of prostate documented in this encounter Care Teams Sluice Tender Relationship Specialty Start Date End Date Jeff Pfeiffer MD [address] [place] [address] PCP - General Family Medicine 03/12/23 documented as of this encounter
--- OUTSIDE RECORDS SUMMARY | 2023-09-25 02:32 | XMS_ITS | Encounter Summary ---
Author Organization [facility] [place] [address] Care Team Providers Care Stack Supervisor Name Role Phone Jeff Pfeiffer MD Primary Care Provider [phone] Reason for Referral * Diagnostic Test (Routine) - Closed Specialty Diagnoses / Procedures Referred By Neil keller Referred To Contact Radiology Diagnoses Elevated PSA Procedures MRI Pelvis wwo (Prostate) Radha Khanna APRN [address] [place] [address] [place] [address] Referral ID Status Reason Start Date Expiration Date V isits Requested Visits Authorized [id number] Closed Specialty Service Requested 02/05/2023 08/06/2024 1 1 Reason for Visit * Diagnostic Test (Routine) - Closed Specialty Diagnoses / Procedures Referred By Neil keller Referred To Contact Radiology Diagnoses Elevated PSA Procedures MRI Pelvis wwo (Prostate) Radha Khanna APRN [address] [place] [address] [place] [address] Referral ID Status Reason Start Date Expiration Date V isits Requested Visits Authorized [id number] Closed Specialty Service Requested 02/05/2023 08/06/2024 1 1 Encounter Details Date Type Department Care Team (Latest Contact Info) Description 03/14/2023 4:21 PM EST - 03/14/2023 11:59 PM EST Hospital [place] [phone] Radha Khanna APRN [address] [place], [place] [phone] Elevated PSA Discharge Disposition: Home Social History Tobacco Use Types Packs/Day Years Used Date Smoking Tobacco: Never Assessed Sex and Gender Information Value Date Recorded Sex Assigned at Not on file Gender Identity Not on file Sexual Orientation Not on file documented as of this encounter Medications at Time of Discharge Medication Sig Dispensed Refills Start Date End Date cholecalciferol (Vitamin D3) 1,000 unit tablet Take 1,000 Units by mouth daily. 05/22/2019 ubiquinone (Ubiquinone) 100 mg capsule Take 125 mg by mouth daily. 05/22/2019 documented as of this encounter Plan of Treatment Upcoming Encounters Date Type Department Care Team (Late st Contact Info) Description 10/10/2023 2:30 PM EDT Office Visit Radiation Oncology at [address] [phone] Leroy Berumen MD [address] [place] [address] DR RADIATION ONCOLOGY [place], [place] [address] 10/10/2023 3:00 PM EDT Infusion Hematology Oncology at [address] [phone] documented as of this encounter Procedures Procedure Name Priority Date/Time Associated Diagnosis Comments MRI PELVIS WWO (PROSTATE) Routine 03/14/2023 6:35 PM EST Elevated PSA documented in this encounter Results * MRI Pelvis wwo (Prostate) (03/14/2023 6:35 PM EST) Anatomical Region Laterality Modality Pelvis Magnetic Resonan ce Impressions 03/15/2023 12:47 PM EST Lesion 1 PZ: PI-RADS 4. T2 location: axial series 13, image 26; sagittal series 14, image 18. Segmented in [employer]roNav. PI-RADS v2.1 Assessment Categories PI-RADS 1 -- Very low (clinically significant cancer is highly unlikely to be present) PI-RADS 2 -- Low (clinically significant cancer is unlikely to be present) PI-RADS 3 -- Intermediate (the presence of clinically significant cancer is equivocal) PI-RADS 4 -- High (clinically significant cancer is likely to be present) PI-RADS 5 -- Very high (clinically significant cancer is highly likely to be present) References: Mealejandra S1, Nilo JH1, Alberto S1, Dias C1, Barnes J1, Czkavitanihallie M1, Gold S1, Browning G1, Rayn K1, Jacobo MJ1, Shoaib BJ1, Huey PA1, Abdullahi PL1, Jessica B1. ??A Grading System for the Assessment of Risk of Extraprostatic Extension of Prostate Cancer at Multiparametric MRI. Radiology. 2019 Mar;290(3):709-719. doi: 10.1148/radiol.6686415514. Epub 2018Mar 11. Thank you for letting us participate in the care of this patient. ??If you are a health care provider and have any questions regarding this report, please contact the number below. ??For patients who have questions please contact the health child care leader that requested your imaging first. ? Narrative 03/15/2023 12:47 PM EST EXAMINATION: MRI PELVIS WWO (PROSTATE) CLINICAL HISTORY: elevated psa HAS PATIENT HAD PREVIOUS BIOPSY?: No MOST RECENT PSA LEVEL: 8.6 TECHNIQUE: Multiparametric MRI of the prostate prior to and following IV administration of 14 mL of Dotarem contrast. ?? QUALITY: Meets PI-RADS technical criteria. COMPARISON: None FINDINGS: Prostate dimensions: 3.1 x 4.6 x 5.6cm. Estimated prostate volume: 78.7cc (X x Y x Z x 0.52) PSA density: 0.11 (PSA/prostate volume >0.15 susp, 0.25 highly susp) Peripheral zone: Lesion 1. Right anterior PZ at the apex, 0.6 cm. T2: Circumscribed, homogenous moderately hypointense focus/mass PI-RADs: 4. DWI: ??Focal markedly hypointense on ADC and markedly hyperintense on high b-value DWI PI-RADs: 4. DCE-MRI: (-) No early arterial enhancement. ? Combined PI-RADs: 4. Transition zone: No focal lesions T2: Typical encapsulated and homogenous circumscribed nodules. PI-RADs: 1. DWI: ??No abnormality on ADC and high b-value DWI. PI-RADs: 1. DCE-MRI: (-) No early arterial enhancement. ? Combined PI-RADs: 1. Extraprostatic disease: Seminal vesicle involvement:No Lymphadenopathy:No Sphincter involvement:No Bladder involvement:No Osseous metastases: No MRI-derived Extraprostatic extension risk: None Other findings: Trabeculated bladder cormier. Colonic diverticulosis. Procedure Note Jann Pacheco MD - 03/15/2023 EXAMINATION: MRI PELVIS WWO (PROSTATE) CLINICAL HISTORY: elevated psa HAS PATIENT HAD PREVIOUS BIOPSY?: No MOST RECENT PSA LEVEL: 8.6 TECHNIQUE: Multiparametric MRI of the prostate prior to and following IV administration of 14 mL of Dotarem contrast. QUALITY: Meets PI-RADS technical criteria. COMPARISON: None FINDINGS: Prostate dimensions: 3.1 x 4.6 x 5.6cm. Estimated prostate volume: 78.7cc (X x Y x Z x 0.52) PSA density: 0.11 (PSA/prostate volume >0.15 susp, 0.25 highly susp) Peripheral zone: Lesion 1. Right anterior PZ at the apex, 0.6 cm. T2: Circumscribed, homogenous moderately hypointense focus/mass PI-RADs: 4. DWI: Focal markedly hypointense on ADC and markedly hyperintense onhigh b-value DWI PI-RADs: 4. DCE-MRI: (-) No early arterial enhancement. Combined PI-RADs: 4. Transition zone: No focal lesions T2: Typical encapsulated and homogenous circumscribed nodules. PI-RADs: 1. DWI: No abnormality on ADC and high b-value DWI. PI-RADs: 1. DCE-MRI: (-) No early arterial enhancement. Combined PI-RADs: 1. Extraprostatic disease: Seminal vesicle involvement:No Lymphadenopathy:No Sphincter involvement:No Bladder involvement:No Osseous metastases: No MRI-derived Extraprostatic extension risk: None Other findings: Trabeculated bladder cormier. Colonic diverticulosis. IMPRESSION Lesion 1 PZ: PI-RADS 4. T2 location: axial series 13, image 26; sagittalseries 14, image 18. Segmented in UroNav. PI-RADS v2.1 Assessment Categories PI-RADS 1 -- Very low (clinically significant cancer is highly unlikely rusty present) PI-RADS 2 -- Low (clinically significant cancer is unlikely to bepresent) PI-RADS 3 -- Intermediate (the presence of clinically significant canceris equivocal) PI-RADS 4 -- High (clinically significant cancer is likely to bepresent) PI-RADS 5 -- Very high (clinically significant cancer is highly likely rusty present) References: Edilia S1, Nilo JH1, Alberto S1, Dias C1, Barnes J1, Czarniecki M1,Gold S1, Browning G1, Rayn K1, Jacobo MJ1, Shoaib BJ1, Huey PA1, Abdullahi PL1, Jessica B1.A Grading System for the Assessment of Risk of Extraprostatic Extension of Prostate Cancer at Multiparametric MRI. Radiology. 2019Mar;290(3):709-719. doi: 10.1148/radiol.8731878461. Epub 2018Mar 11. Thank you for letting us participate in the care of this patient. If youare a health care provider and have any questions regarding this report,please contact the number below. For patients who have questions please contactthe health child care leader that requested your imaging first. Radha Khanna APRN [facility] MRI ORDERABLES documented in this encounter Visit Diagnoses Diagnosis Elevated PSA Elevated prostate specific antigen (PSA) documented in this encounter Administered Medications Inactive Administered Medications - up to 3 most recent administrations Medication Order MAR Action Action Date Dose Rate Site gadoterate meglumine (Dotarem) (0.5 mMol/mL) injection solution 0-100 mL 0-100 mL, Intravenous, ONCE PRN, 1 dose, Starting on Caitlin 03/14/23 at 1835, Until Caitlin 03/14/23 at 1825, Per Protocol, Radiology Contrast, Routine Given 03/14/2023 6:25 PM EST 14 mLs documented in this encounter Care Teams Stack Supervisor Relationship Specialty Start Date End Date Jeff Pfeiffer MD [address] [place] [address] PCP - General Family Medicine 03/12/23 documented as of this encounter
--- OUTSIDE RECORDS SUMMARY | 2023-09-25 02:32 | XMS_ITS | Encounter Summary ---
Author Organization [facility] Address [address] [place] [address] Care Team Providers Care Pipe Bender Name Role Phone Jeff Pfeiffer MD Primary Care Provide r Encounter Details Date Type Department Care Team (Late st Contact Info) Description 05/19/2020 Lab Requisition [facility] Pathology & Laboratory Medicine - [facility] [address] [place] [address] Outr Resulting Lab, Provider Social History Tobacco [...] Associated Diagnosis Comments PSA TOTAL, DIAGNOSTIC Routine 05/19/2020 9:04 EDT documented in this encounter Results * PSA TOTAL, DIAGNOSTIC (05/19/2020 9:04 EDT) PSA 2.9 0.0 - 4.5 ng/mL 05/19/2020 22:33 EDT [facility] Blood VENOUS BLOOD / Unknown 05/19/2020 9:04 EDT 05/19/2020 21:11 EDT Narrative [facility] - 05/19/2020 22:33 EDT NOTE: Serum PSA concentration should not be interpreted as absolute evidence for the presence or absence of malignant disease. Assayed on Siemens ADVIA Paperfoldaur XPT using chemiluminescent technology.??Values obtained by using different assay methods cannot be used interchangeably. Provider Outr Resulting Lab CHEMISTRY & BLOOD GAS ORDERABLES [facility] [address] [place] [address] documented in this encounter Visit Diagnoses Not on filedocumented in this encounter Care Teams Pipe Bender Relationship Specialty Start Date End Date Jeff Pfeiffer MD [address] [place] [phone] PCP - General 08/27/22 documented as of this encounter
--- OUTSIDE RECORDS SUMMARY | 2023-09-25 02:32 | XMS_ITS | Encounter Summary ---
Author Organization [facility] Address [address] [place] [address] Care Team Providers Care Ship Superintendent Name Role Phone Jeff Pfeiffer MD Primary Care Provide r Encounter Details Date Type Department Care Team (Late st Contact Info) Description 06/27/2023 Lab Requisition [facility] Pathology & Laboratory Medicine - [facility] [address] [place] [address] Leroy Berumen MD [address] [place] [address] [place] [address] Encounter for other general examination Social History Tobacco Use Types Packs/Day Years [...] Procedure Name Priority Date/Time Associated Diagnosis Comments HISTORICAL CASE UPDATE Today 06/27/2023 15:00 EDT Encounter for other general examination documented in this encounter Results * HISTORICAL CASE UPDATE (06/27/2023 15:00 EDT) Addendum Comment At the request of Dr. Leroy Berumen, a block from [id number] (F1) was sent to [employer] for testing. For Decipher results, please see scanned report in EPIC. 07/08/2023 11:07 EDT [facility] Original (F1) 07/08/2023 11:07 EDT [facility] Original Case Specimen Source Right apex prostate 07/08/2023 11:07 [facility] Original Case Date of Service 04/19/2023 07/08/2023 11:07 [facility] Attestation By the signature below, the attending physician certifies that they have 1) personally conducted a gross and/or microscopic examination of the described specimen(s), and/or personally interpreted the results of laboratory testing of the described specimen(s), and 2) personally rendered or confirmed the above diagnosis. 07/08/2023 11:07 [facility] at [address] Surgical Pathology PROSTATIC STRUCTURE / Unknown 06/27/2023 15:00 EDT 06/27/2023 15:00 EDT Surgical pathology service (qualifier value) DOCUMENTATION PROCEDURE / Unknown 06/27/2023 15:00 EDT 06/27/2023 15:00 EDT Surgical pathology service (qualifier value) DOCUMENTATION PROCEDURE / Unknown 06/27/2023 15:00 EDT 06/27/2023 15:00 EDT Surgical pathology service (qualifier value) DOCUMENTATION PROCEDURE / Unknown 06/27/2023 15:00 EDT 06/27/2023 15:00 EDT Surgical pathology service (qualifier value) DOCUMENTATION PROCEDURE / Unknown 06/27/2023 15:00 EDT 06/27/2023 15:00 EDT Surgical pathology service (qualifier value) PROSTATIC STRUCTURE / Unknown 06/27/2023 15:00 EDT 06/27/2023 15:00 EDT Leroy Berumen MD PATHOLOGY ORDERABLES [facility] [address] [place] [address] documented in this encounter Visit Diagnoses Diagnosis Encounter for other general examination documented in this encounter Care Teams Ship Superintendent Relationship Specialty Start Date End Date Jeff Pfeiffer MD [address] [place] [id number] PCP - General 7/10/23 documented as of this encounter
--- OUTSIDE RECORDS SUMMARY | 2023-09-25 02:32 | XMS_ITS | Encounter Summary ---
Author Organization [facility] Address [address] [place] [address] Care Team Providers Care Qa Tech Name Role Phone Jeff Pfeiffer MD Primary Care Provide r Encounter Details Date Type Department Care Team (Late st Contact Info) Description 06/20/2022 Lab Requisition [facility] Pathology & Laboratory Medicine - [facility] [address] [place] [address] Outr Resulting Lab, Provider Social History Tobacco [...] Associated Diagnosis Comments PSA TOTAL, DIAGNOSTIC Routine 06/20/2022 10:05 EDT documented in this encounter Results * (ABNORMAL) PSA TOTAL, DIAGNOSTIC (06/20/2022 10:05 EDT) PSA 5.0(H) <=4.5 ng/mL 06/20/2022 22:12 EDT [facility] Blood VENOUS BLOOD / Unknown 06/20/2022 10:05 EDT 06/20/2022 21:21 EDT Narrative [facility] - 06/20/2022 22:12 EDT NOTE: Serum PSA concentration should not be interpreted as absolute evidence for the presence or absence of malignant disease. Assayed on Siemens ADVIA [email or web address] XPT using chemiluminescent technology.??Values obtained by using different assay methods cannot be used interchangeably. Provider Outr Resulting Lab CHEMISTRY & BLOOD GAS ORDERABLES [facility] [address] [place] [address] documented in this encounter Visit Diagnoses Not on filedocumented in this encounter Care Teams Qa Tech Relationship Specialty Start Date End Date Jeff Pfeiffer MD [address] [address] PCP - General 08/27/22 documented as of this encounter
--- OUTSIDE RECORDS SUMMARY | 2023-09-25 02:32 | XMS_ITS | Referral Summary ---
Author Organization [facility] Address [address] [place] [address] Care Team Providers Care Staff Internist Office Based Only Name Role Phone Jeff Pfeiffer MD Primary Care Provide r Encounters Date Type Department Care Team Description 06/27/2023 Lab Requisition [facility] Pathology & Laboratory Medicine - [address] [address] Leroy Berumen MD Encounter for other general examination from Last 3 Months Allergies No known active allergies Medications Medication Sig Dispensed Refills Start Date End Date Status Coenzyme Q10 (CO Q-10) 100 mg capsule Take 1 Capsule by mouth daily. Active atorvastatin (LIPITOR) 40 mg tablet Take 1 Tablet by mouth daily. Active TAMSulosin (FLOMAX) 0.4 mg capsule Take 1 Capsule by mouth daily. Active Cholecalciferol, Vitamin D3, 10 mcg (400 unit) tablet Take 50 Units by mouth daily. Active Active Problems No known active problems Social History Tobacco Use Types Packs/Day Years Used Date Smoking Tobacco: Never Assessed Tobacco Cessation:Counseling Given: Yes Interpersonal Safety Answer Date Record ed Physically Hurt Never 01/12/2020 Verbally Threaten Not on file 01/12/2020 Sex and Gender Information Value Date Recorded Sex Assigned at Not on file Gender Identity Not on file Sexual Orientation Not on file Last Filed Vital Signs Vital Sign Reading Time Taken Comments Blood Pressure 132/82 08/27/2022 1304 EDT Pulse 72 08/27/2022 1304 EDT Temperature - - Respiratory Rate - - Oxygen Saturation - - Inhaled Oxygen Concentration - - Weight - - Height - - Body Mass Index - - Plan of Treatment Not on file Procedures Procedure Name Priority Date/Time Associated Diagnosis Comments HISTORICAL CASE UPDATE Today 06/27/2023 15:00 EDT Encounter for other general examination from Last 3 Months Results * HISTORICAL CASE UPDATE (06/27/2023 15:00 EDT) Addendum Comment At the request of Dr. Leroy Breumen, a block from [id number] (F1) was sent to [employer] for testing. For Decipher results, please see scanned report in EPIC. 07/08/2023 11:07 [facility] Original (F1) 07/08/2023 11:07 [facility] Original Case Specimen Source Right apex prostate 07/08/2023 11:07 [facility] Original Case Date of Service 04/19/2023 07/08/2023 11:07 [facility] Attestation By the signature below, the attending physician certifies that they have 1) personally conducted a gross and/or microscopic examination of the described specimen(s), and/or personally interpreted the results of laboratory testing of the described specimen(s), and 2) personally rendered or confirmed the above diagnosis. 07/08/2023 11:07 [facility] at 1107 Surgical Pathology PROSTATIC [...] 15:00 EDT Leroy Berumen MD PATHOLOGY ORDERABLES [facility] [address] [place], [place] [id number] from Last 3 Months Care Teams Staff Internist Office Based Only Relationship Specialty Start Date End Date Jeff Pfeiffer MD [address] [facility] [address] [place] [address] [facility] - General 08/27/22
--- OUTSIDE RECORDS SUMMARY | 2023-09-25 02:32 | XMS_ITS | Clinical Summary ---
Author Organization [facility] Address [address] [place] [address] Care Team Providers Care Glass Sander Name Role Phone Jeff Pfeiffer MD Primary Care Provide r Allergies No known active allergies Medications Medication [...] Active Active Problems No known active problems Encounters Date Type Department Care Team Description 06/27/2023 Lab Requisition [facility] Pathology & Laboratory Medicine - [facility] [address] [place] [address] Leroy Berumen MD Encounter for other general examination from Last 3 Months Social History Tobacco Use Types Packs/Day Years Used Date Smoking Tobacco: Never Assessed Tobacco Cessation:Counseling Given: Yes Interpersonal Safety Answer Date Record ed Physically Hurt Never 01/12/2020 Verbally Threaten Not on file 01/12/2020 Sex and Gender Information Value Date Recorded Sex Assigned at Not on file Gender Identity Not on file Sexual Orientation Not on file Obstetrics History Last Filed Vital Signs Vital Sign Reading Time Taken Comments Blood Pressure 132/82 08/27/2022 1304 EDT Pulse 72 08/27/2022 1304 EDT Temperature - - Respiratory Rate - - Oxygen Saturation - - Inhaled Oxygen Concentration - - Weight - - Height - - Body Mass Index - - Plan of Treatment Health Maintenance Due Date Last Done Comments Hepatitis C Screen 1955 RSV Immunization ( o r 60+ Years) (1 - 1-dose 60+ series) 2015 Fall Risk Screening 2020 COVID-19 Vaccine ( season) 2022 Procedures Procedure Name Priority Date/Time Associated Diagnosis Comments HISTORICAL CASE UPDATE Today 06/27/2023 15:00 EDT Encounter for other general examination from Last 3 Months Results * HISTORICAL CASE UPDATE (06/27/2023 15:00 EDT) Addendum Comment At the request of Dr. Leroy Berumen, a block from [id number] (F1) was sent to [employer] for testing. For [employer] results, please see scanned report in EPIC. 07/08/2023 11:07 [facility] Original (F1) 07/08/2023 11:07 [facility] Original Case Specimen Source Right apex prostate 07/08/2023 11:07 [facility] Original Case Date of Service 04/19/2023 07/08/2023 11:07 [facility] Attestation By the signature below, the attending physician certifies that they have 1) personally conducted a gross and/or microscopic examination of the described specimen(s), and/or personally interpreted the results of laboratory testing of the described specimen(s), and 2) personally rendered or confirmed the above diagnosis. 07/08/2023 11:07 [facility] at 1107 Surgical Pathology PROSTATIC [...] 15:00 EDT Leroy Berumen MD PATHOLOGY ORDERABLES [facility] [address] [place] [address] from Last 3 Months Care Teams Glass Sander Relationship Specialty Start Date End Date Jeff Pfeiffer MD [address] [place] [address] [address] [place], [place] [id number] PCP - General 08/27/22
--- OUTSIDE RECORDS SUMMARY | 2023-09-25 02:32 | XMS_ITS | Encounter Summary ---
Author Organization [facility] Address [address] [place] [address] Care Team Providers Care Director Craft Center Name Role Phone Jeff Pfeiffer MD Primary Care Provide r Encounter Details Date Type Department Care Team (Late st Contact Info) Description 05/24/2022 Lab Requisition [facility] Pathology & Laboratory Medicine - [facility] [address] [place] [address] Outr Resulting Lab, Provider Social History Tobacco [...] Associated Diagnosis Comments PSA TOTAL, DIAGNOSTIC Routine 05/24/2022 9:15 EDT documented in this encounter Results * (ABNORMAL) PSA TOTAL, DIAGNOSTIC (05/24/2022 9:15 EDT) PSA 4.8(H) <=4.5 ng/mL 05/24/2022 22:51 EDT [facility] Blood VENOUS BLOOD / Unknown 05/24/2022 9:15 EDT 05/24/2022 21:39 EDT Narrative [facility] - 05/24/2022 22:51 EDT NOTE: Serum PSA concentration should not be interpreted as absolute evidence for the presence or absence of malignant disease. Assayed on Siemens ADVIA GlucoTecaur XPT using chemiluminescent technology.??Values obtained by using different assay methods cannot be used interchangeably. Provider Outr Resulting Lab CHEMISTRY & BLOOD GAS ORDERABLES [facility] [address] [place] [address] documented in this encounter Visit Diagnoses Not on filedocumented in this encounter Care Teams Director Craft Center Relationship Specialty Start Date End Date Jeff Pfeiffer MD [address] [address] PCP - General 08/27/22 documented as of this encounter
--- OUTSIDE RECORDS SUMMARY | 2023-09-25 02:32 | XMS_ITS | Clinical Summary ---
Author Organization [facility] Address [facility] [place] [address] Care Team Providers Care Line Out Man Name Role Phone Jeff Pfeiffer MD Primary Care Provider [phone] Allergies No known active allergies Medications Medication Sig Dispensed Refills Start Date End Date Status atorvastatin (Lipitor) 40 mg tablet Take 20 mg by mouth Daily @ 0600. Active cholecalciferol (Vitamin D3) 1,000 unit tablet Take 1,000 Units by mouth daily. 05/22/2019 Active tamsulosin (Flomax) 0.4 mg capsule Take 1 capsule by mouth nightly. Active ubiquinone (Ubiquinone) 100 mg capsule Take 125 mg by mouth daily. 05/22/2019 Active acyclovir (Zovirax) 400 mg tablet Take 400 mg by mouth as needed (coldsores). 03/20/2023 Active Active Problems Problem Noted Date Diagnosed Date Malignant neoplasm of prostate 06/14/2023 Cancer Staging:Clinical:Stage IIB(cT1c, cN0, cM0, PSA: 8.6, Grade Group: 2) - Signed by Leroy Berumen MD on 06/14/2023 Encounters Date Type Department Care Team Description 07/18/2023 8:30 AM EDT Office Visit Radiation Oncology at [address] [phone] Leroy Berumen MD Malignant neoplasm of prostate 07/18/2023 Travel 07/11/2023 Notes Only Radiation Oncology at [address] [phone] Leroy Berumen MD 06/26/2023 Telephone Radiation Oncology at [address] [phone] Leesa Randall, RN Results (PSA) from Last 3 Months Family History Medical History Relation Comments Cancer Maternal Uncle Cancer Mother Relation Status Comments Maternal Uncle Mother Social History Tobacco Use Types Packs/Day Years Used Date Smoking Tobacco: Former Cigarettes Q uit: 1989 Smokeless Tobacco: Never Tobacco Cessation:Counseling Given: Not Answered Alcohol Use Standard Drinks/Week Comments Yes 15 (1 standard drink = 0.6 oz pu re alcohol) [facility] Utilities Answer Date Recorded In the [...] place to sleep or slept in a fci (including now)? No 06/19/2023 Sex and Gender [...] Mass Index - - Plan of Treatment Upcoming Encounters Date Type Department Care Team (Late st Contact Info) Description 10/10/2023 2:30 PM EDT Office Visit Radiation Oncology at [address] [phone] Leroy Berumen MD [address] [place] [address] DR RADIATION ONCOLOGY [place], [place] [phone] 10/10/2023 3:00 PM EDT Infusion Hematology Oncology at [address] [phone] Health Maintenance Due Date Last Done Comments CT Colonography 1955 Colonoscopy 1955 Colorectal Cancer Screening 1955 FIT DNA 1955 FIT 1955 Sigmoidoscopy (10 year) with FIT yearly 1955 Sigmoidoscopy 1955 Hepatitis C Screening 1973 Tdap adult 1974 Tetanus vaccine 1974 Zoster vaccine (1 of 2) 2005 Advance Directive 2010 AAA Screen 2020 Pneumoccocal Vaccine: 65+ (1 of 1 - PCV) 2020 Covid-19 Vaccine (1 - 2022-24 season) 2022 Influenza (Flu) vaccine (1 o f 1 - Influenza standard series) 10/20/2023 Care Teams Line Out Man Relationship Specialty Start Date End Date Jeff Pfeiffer MD [address] [place] [address] PCP - General Family Medicine 03/12/23
--- OUTSIDE RECORDS SUMMARY | 2023-09-25 02:32 | XMS_ITS | Encounter Summary ---
Author Organization [facility] Address [facility] [place] [address] Care Team Providers Care Strategic Planning Analyst Name Role Phone Jeff Pfeiffer MD Primary Care Provider [phone] Encounter Details Date Type Department Care Team (Latest Contact Info) Description 06/19/2023 Travel Social History Tobacco Use Types Packs/Day Years Used Date Smoking Tobacco: Former Cigarettes Q uit: 1989 Smokeless Tobacco: Never Alcohol Use Standard Drinks/Week Comments Yes 15 (1 standard drink = 0.6 oz pu re alcohol) [facility] Utilities Answer Date Recorded In the past 12 months has th e [employer], gas, oil, or water [employer] threatened to shut off services in your [...] PM EDT Office Visit Radiation Oncology at [address] [phone] Leroy Berumen MD [address] [place] [address] DR RADIATION ONCOLOGY [place], [place] [phone] 10/10/2023 3:00 PM EDT Infusion Hematology Oncology at [address] [phone] documented as of this encounter Visit Diagnoses Not on filedocumented in this encounter Care Teams Strategic Planning Analyst Relationship Specialty Start Date End Date Jeff Pfeiffer MD [address] [place] [address] PCP - General Family Medicine 03/12/23 documented as of this encounter
--- OUTSIDE RECORDS SUMMARY | 2023-09-25 02:32 | XMS_ITS | Encounter Summary ---
Author Organization [facility] Address [address] [place] [address] Care Team Providers Care Research Agricultural Engineer Name Role Phone Jeff Pfeiffer MD Primary Care Provide r Encounter Details Date Type Department Care Team (Late st Contact Info) Description 09/07/2022 Lab Requisition [facility] Pathology & Laboratory Medicine - [facility] [address] [place] [address] Outr Resulting Lab, Provider Social History Tobacco [...] Procedure Name Priority Date/Time Associated Diagnosis Comments LYME AB Routine 09/06/2022 15:10 EDT documented in this encounter Results * LYME AB (09/06/2022 15:10 EDT) Lyme Ab Negative Negative 09/10/2022 9:11 EDT [facility] Blood VENOUS BLOOD / Unknown 09/06/2022 15:10 EDT 09/07/2022 19:27 EDT Provider Outr Resulting Lab IMMUNOLOGY A ND SEROLOGY ORDERABLES [facility] [address] [place] [address] documented in this encounter Visit Diagnoses Not on filedocumented in this encounter Care Teams Research Agricultural Engineer Relationship Specialty Start Date End Date Jeff Pfeiffer MD [address] [facility] [address] [place] [address] PCP - General 08/27/22 documented as of this encounter
--- OUTSIDE RECORDS SUMMARY | 2023-09-25 02:33 | XMS_ITS ---
Author Organization Unknown Address [address] [place] [phone] Phone Care Team Providers Care Photo Colorer Name Role Phone RENZO Diaz MD Attending Dominique FUNG MD Primary Unavailable Social History Type Status Start Date End Date Code Code Syst em Smoking History Never smoker (Never Smoked) 231121788 SNOMED CT Sex Male Vital Signs Vital Sign Value Unit Lee Value Lee Unit Date/Time Recent/Initial? Code Code System Systolic Blood Pressure 124 mm[Hg] 09/20/2020 13:14 Most Recent 8480-6 LOINC Diastolic Blood Pressure 74 mm[Hg] 09/20/2020 13:14 Most Recent 8462-4 LOINC Systolic Blood Pressure 107 mm[Hg] 09/20/2020 12:54 Initial 8480-6 LOINC Diastolic Blood Pressure 78 mm[Hg] 09/20/2020 12:54 Initial 8462-4 LOINC O2 Saturation 100 % 2020 13:14 Most Recent 07471- 5 LOINC O2 Saturation 97 % 2020 12:54 Initial 89315- 5 LOINC Pulse 71.0 /min 09/20/2020 13:14 Most Recent 8867-4 LOINC Pulse 70.0 /min 09/20/2020 12:54 Initial 8867-4 LOINC Respiration 16 /min 09/21/19 13:14 Most Recent 9279-1 LOINC Respiration 16 /min 09/21/19 12:54 Initial 9279-1 LOINC Hospital Discharge Instructions Should you have any questions prior to discharge, please contact a member of your healthcare team. If you have left the hospital and have any questions, please contact your primary care physician. Reason For Referral No Data Found Procedures Procedure Name Date Status Code Code Syste m Colsc Flx w/Rmvl Of Tumor Po lyp Lesion Snare Tq 09/20/2020 completed 55214 CPT Implants Implanted JACKY Status Assigning Authority Procedure Date Lot Number Serial Number Manufacturing Date Expiration Date Distinct ID Code Brand Name Model Number Tendon/lig ament bone anchor, bioabsorba ble 0100 8888 6731 1282 1726 1031 1015 0260 43 Active FDA Left shoulder rotator cuff repair 03/23 9980300 3 12/18/2025 Arthre x(R) AR-2326 BCC Tendon/lig ament bone anchor, bioabsorba ble 0100 8888 6702 7312 1725 1130 1014 6820 01 Active FDA Left shoulder rotator cuff repair 03/23 6616510 1 01/17/2025 Arthre x(R) AR-2600 SBS-4 Problems Problem Start Date Resolved Date Status Code Code System DEPRESSION 12/27/2021 resolved 41667903 SNOMED-C T HYPERTENSION 12/27/2021 resolved 51829772 SNOMED -CT Allergies and Adverse Reactions Allergy Substance Reaction Severity Start Date Concern Status Co de Code System No Known Allergies Active 128253005 SNO MED-CT Plan of Treatment MRI UPPER EXT JOINT W/O CONTRAST 2021 US ABDOMEN LIMITED 1 ORGAN 06/12/2021 Encounters Encounter Diagnosis Start Date Code Code Sys tem Encounter for screening for malignant neoplasm of colo n 09/20/2020 SNOMED-CT Personal Care Team Section Performer Name Performer Role Active Date Inactive Da te
--- OUTSIDE RECORDS SUMMARY | 2023-09-25 02:33 | XMS_ITS ---
Author Organization Unknown Address [address] [place] [phone] Phone Care Team Providers Care Peoplesoft Consultant Name Role Phone ILAN Judge MD Attending Unavailable FROYLAN JOHNSON GROCERY CLERK [facility] Unavailable CHRISTIANO FUNG MD Primary Unavailable Results RIBS UNILAT W/PA CHEST 3V RT - Completed: 08/27/2020 19:11 LOINC: No priors. Heart size and pu lmonary vasculature are within normal limits. The lungs are clear and well expanded. No effusion or pneumothorax. There is a question of a nondisplaced fracture involving the anterior aspect of the right 6th rib. No other fracture is identified. IMPRESSION:Question of a nondisplaced fracture of the anterior aspect of the right 6th rib. Please correlate clinically. Dictated by: MULUGETA BOBO M.D. RADIOLOGIST Transcribed by: MARCUS 08/28/20/11:13 D Friday, August 28, 2020 10:25:51 AM [id number] Electronically Reviewed and Signed By: BOBY BOBO M.D. RADIOLOGIST 08/28/20 11:55 Copy for: CHRISTIANO FUNG MD via link DISCHARGED Social History Type Status Start Date End Date Code Code Syst em Smoking History Never smoker (Never Smoked) 953754805 SNOMED CT Sex Male Hospital Discharge Instructions [...] FDA Left shoulder rotator cuff repair 03/23 9321816 3 12/18/2025 Arthre x(R) AR-2326 BCC Tendon/lig ament bone anchor, bioabsorba ble 0100 8888 6702 7312 1725 1130 1014 6820 01 Active FDA Left shoulder rotator cuff repair 03/23 7435038 1 01/17/2025 Arthre x(R) AR-2600 SBS-4 Problems Problem Start Date Resolved Date Status Code Code System DEPRESSION 12/27/2021 resolved 73541068 SNOMED-C T HYPERTENSION 12/27/2021 resolved 78118675 SNOMED -CT Allergies and Adverse Reactions Allergy Substance Reaction Severity Start Date Concern Status Co de Code System No Known Allergies Active 718399300 SNO MED-CT Plan of Treatment MRI UPPER EXT JOINT W/O CONTRAST 2021 US ABDOMEN LIMITED 1 ORGAN 06/12/2021 Encounters Encounter Diagnosis Start Date Code Code Sys tem Other chest pain 08/27/2020 SNOMED-CT Personal Care Team Section Performer Name Performer Role Active Date Inactive Da te
[2023-09-26 20:10] LABS: PSA, Ultrasensitive 5.3 ng/mL (<= 4.5)
== END 2023-09-25 02:26 | disposition home or self-care (01) ==
LOC: LBO 02:26
PROVIDERS: PCP Family Medicine; Visit Provider Radiology Radiation Oncology
DX: C61 Malignant neoplasm of prostate (principal)
CPT/HCPCS: 36415; 84153

== ENCOUNTER 2024-02-27 10:35 | Outpatient (CLI) | payer MEDICARE, SELFPAY ==
--- NOTE | 2024-02-27 | DI.US_ITS ---
Exam(s) US SOFT TISSUE HEAD OR NECK EXAM: US SOFT TISSUE HEAD OR NECK CLINICAL HISTORY: R221. Localized swelling,mass/lump neck; RT submandibular mass, non tender. TECHNIQUE: Ultrasound was performed using standard protocol. COMPARISON: No exams were available for comparison FINDINGS: Sonographic assessment utilizing grayscale and color Doppler imaging was performed and targeted to th e area of clinical concern. Within the right submandibular gland there are 2 hypoechoic nodules present. The larger measures 1.1 x 1.0 x 1.3 cm. The smaller measures 1.0 x 0.9 x 1.0 cm. There is mild internal blood flow noted. These correspond to the palpable abnormalities. They are nonspecific. A CT scan of the neck with c ontrast is recommended for further evaluation. IMPRESSION: Unexpected findings DATA REPOSITORY:
--- OUTSIDE RECORDS SUMMARY | 2024-02-27 10:41 | XMS_ITS ---
Author Organization Unknown Address [address] [place] [phone] Phone Care Team Providers Care Credit Verification Clerk Name Role Phone DONNA GONZALEZ Registered Nurse Unavailable LEONARD Marcial Attending Unavailable DARRIN [facility] Unavailable CHRISTIANO Marcial Primary Unavailable UNLISTED PROVIDER - REQUESTED Xhandoff Un available Results XR HUMERUS 2V LT* - Complete d: 12/27/2021 16:47 LOINC: [place], [place] [address] PACS SIMULATION TECH REPORT Patient Name: CURZ HESTER MRN: Sex: : Age: [id number] M 1955 66 Account: Accession: Admit: StayType: [id number] 12/27/2021 E/R Ordered: Order ID: Submitted: Ordering Provider: 12/27/2021 16:19 [id number] SORAYA GONZALEZ Completed: Technologist: Resulted: 12/27/2021 16:47 [...] OR MORE LT* - Completed: 12/27/2021 16:47 [facility]: [facility] RADIOLOGY [place], [place] [address] PACS SIMULATION TECH REPORT Patient Name: CRUZ HESTER MRN: Sex: : Age: [id number] M 1955 Account: Accession: Admit: StayType: [id number] 12/27/2021 E/R Ordered: Order ID: Submitted: Ordering Provider: 12/27/2021 16:19 [id number] SORAYA GONZALEZ Completed: Technologist: Resulted: 12/27/2021 16:47 [...] No other bone lesions evident in the [id number]-os-xqtg of this shoulder study. IMPRESSION: No acute osseous findings. Other findings as above. Report Digitally Signed by Karan Clay on 12/27/2021 04:54 PM EST Social History Type Status Start Date End Date Code Code Syst em Smoking History Never smoker (Never Smoked) 660347853 SNOMED CT Sex Male Vital Signs Vital Sign Value Unit [place]er[place] Value [place]erfield Unit Date/Time Recent/Initial? Code Code System Body Mass Index 20.34 kg/m2 12/27/2021 16:07 Initial 38937 -5 LOINC Systolic Blood Pressure 131 mm[Hg] [...] Saturation 97 % 2021 17:58 Most Recent 91783 -5 LOINC O2 Saturation 97 % 2021 16:07 Initial 43015 -5 LOINC Pulse 65.0 /min 12/27/2021 17:58 Most Recent 8867- 4 LOINC Pulse 72.0 /min 12/27/2021 16:07 Initial 8867- 4 LOINC Respiration 18 /min 12/28/19 22 17:58 Most Recent 9279- 1 LOINC Respiration 16 /min 12/28/19 22 16:07 Initial 9279- 1 LOINC Temperature 36.7 Kaykay 98.1 F 12/28/19 22 16:07 Initial 8310- 5 LOINC Weight 68.04 kg 150.00 lbs 12/27/2021 16:07 Initial 98020 -7 LOINC Hospital Discharge Instructions Should you [...] FDA Left shoulder rotator cuff repair 03/23 3019112 3 12/18/2025 Arthre x(R) AR-2326 BCC Tendon/lig ament bone anchor, bioabsorba ble 0100 8888 6702 7312 1725 1130 1014 6820 01 Active FDA Left shoulder rotator cuff repair 03/23 6369555 1 01/17/2025 Arthre x(R) AR-2600 SBS-4 Problems Problem Start Date Resolved Date Status Code Code System DEPRESSION 12/27/2021 resolved 01335300 SNOMED-C T HYPERTENSION 12/27/2021 resolved 20961914 SNOMED -CT Allergies and Adverse Reactions Allergy Substance Reaction Severity Start Date Concern Status Co de Code System No Known Allergies Active 800174587 SNO MED-CT Plan of Treatment MRI UPPER EXT JOINT W/O CONTRAST 2021 US ABDOMEN LIMITED 1 ORGAN 06/12/2021 Encounters Encounter Diagnosis Start Date Code Code Sys tem Unspecified dislocation of l eft shoulder joint, initial encounter 12/27/2021 SNOMED-CT Personal Care Team Section Performer Name Performer Role Active Date Inactive Da zohreh
--- OUTSIDE RECORDS SUMMARY | 2024-02-27 10:41 | XMS_ITS ---
Author Organization Unknown Address [address] [place] [phone] Phone Care Team Providers Care Fingernail Sculptor Name Role Phone STREETERYASMIN Watters Attending Unavailable CHRISTIANO Marcial Primary Unavailable Social History Type Status Start Date End Date Code Code Syst em Smoking History Never smoker (Never Smoked) 904601897 SNOMED CT Sex Male Hospital Discharge Instructions [...] FDA Left shoulder rotator cuff repair 03/23 2407381 3 12/18/2025 Arthre x(R) AR-2326 BCC Tendon/lig ament bone anchor, bioabsorba ble 0100 8888 6702 7312 1725 1130 1014 6820 01 Active FDA Left shoulder rotator cuff repair 03/23 8894206 1 01/17/2025 Arthre x(R) AR-2600 SBS-4 Problems Problem Start Date Resolved Date Status Code Code System DEPRESSION 12/27/2021 resolved 17144790 SNOMED-C T HYPERTENSION 12/27/2021 resolved 78244750 SNOMED -CT Allergies and Adverse Reactions Allergy Substance Reaction Severity Start Date Concern Status Co de Code System No Known Allergies Active 145656980 SNO MED-CT Plan of Treatment MRI UPPER EXT JOINT W/O CONTRAST 2021 US ABDOMEN LIMITED 1 ORGAN 06/12/2021 Encounters Encounter Diagnosis Start Date Code Code Sys tem Injury of tendon of the rotator cuff of shoulder 01/09 417856456 SNOMED-CT Personal Care Team Section Performer Name Performer Role Active Date Inactive Da te
--- OUTSIDE RECORDS SUMMARY | 2024-02-27 10:42 | XMS_ITS ---
Author Organization Unknown Address [address] [place] [phone] Phone Care Team Providers Care Oracle Application Architect Name Role Phone STREETERYASMIN Watters Attending Unavailable CHRISTIANO Marcial Primary Unavailable Social History Type Status Start Date End Date Code Code Syst em Smoking History Never smoker (Never Smoked) 400462606 SNOMED CT Sex Male Hospital Discharge Instructions [...] FDA Left shoulder rotator cuff repair 03/23 7013609 3 12/18/2025 Arthre x(R) AR-2326 BCC Tendon/lig ament bone anchor, bioabsorba ble 0100 8888 6702 7312 1725 1130 1014 6820 01 Active FDA Left shoulder rotator cuff repair 03/23 2454131 1 01/17/2025 Arthre x(R) AR-2600 SBS-4 Problems Problem Start Date Resolved Date Status Code Code System DEPRESSION 12/27/2021 resolved 64161920 SNOMED-C T HYPERTENSION 12/27/2021 resolved 80383919 SNOMED -CT Allergies and Adverse Reactions Allergy Substance Reaction Severity Start Date Concern Status Co de Code System No Known Allergies Active 182521717 SNO MED-CT Plan of Treatment MRI UPPER [...]
--- OUTSIDE RECORDS SUMMARY | 2024-02-27 10:42 | XMS_ITS ---
Author Organization Unknown Address [address] [place] [phone] Phone Care Team Providers Care Noteman Name Role Phone SYL Watters Attending Unavailable CHRISTIANO Marcial Primary Unavailable Results MR UPPER EXT ANY JOINT LT WO CONTRAST - Completed: 01/26/2022 11:50 LOINC: [facility] RADIOLOGY [place], [place] [address] PACS WAREHOUSEMAN REPORT Patient Name: CRUZ HESTER MRN: Sex: : Age: [id number] M 1955 66 Account: Accession: Admit: StayType: [id number] 01/26/2022 O/P Ordered: Order ID: Submitted: Ordering Provider: 01/26/2022 08:45 [id number]ER Completed: Technologist: Resulted: 01/26/2022 [...] em Smoking History Never smoker (Never Smoked) 943379898 SNOMED CT Sex Male Hospital Discharge Instructions [...] FDA Left shoulder rotator cuff repair 03/23 3035429 3 12/18/2025 Arthre x(R) AR-2326 BCC Tendon/lig ament bone anchor, bioabsorba ble 0100 8888 6702 7312 1725 1130 1014 6820 01 Active FDA Left shoulder rotator cuff repair 03/23 8889431 1 01/17/2025 Arthre x(R) AR-2600 SBS-4 Problems Problem Start Date Resolved Date Status Code Code System DEPRESSION 12/27/2021 resolved 69840867 SNOMED-C T HYPERTENSION 12/27/2021 resolved 71623148 SNOMED -CT Allergies and Adverse Reactions Allergy Substance Reaction Severity Start Date Concern Status Co de Code System No Known Allergies Active 550268535 SNO MED-CT Plan of Treatment MRI UPPER EXT JOINT W/O CONTRAST 2021 US ABDOMEN LIMITED 1 ORGAN 06/12/2021 Encounters Encounter Diagnosis Start Date Code Code Sys tem Complete rotator cuff tear o r rupture of left shoulder, not specified as traumatic 01/26/2022 SNOMED-CT Personal Care Team Section Performer Name Performer Role Active Date Inactive Da te
--- OUTSIDE RECORDS SUMMARY | 2024-02-27 10:42 | XMS_ITS ---
Author Organization Unknown Address [address] [place] [phone] Phone Care Team Providers Care Friction Saw Operator Name Role Phone RASHEEDA Angulo Attending Unavailable CHRISTIANO Marcial Primary Unavailable Social History Type Status Start Date End Date Code Code Syst em Smoking History Never smoker (Never Smoked) 301431490 SNOMED CT Sex Male Hospital Discharge Instructions [...] FDA Left shoulder rotator cuff repair 03/23 5740427 3 12/18/2025 Arthre x(R) AR-2326 BCC Tendon/lig ament bone anchor, bioabsorba ble 0100 8888 6702 7312 1725 1130 1014 6820 01 Active FDA Left shoulder rotator cuff repair 03/23 0359927 1 01/17/2025 Arthre x(R) AR-2600 SBS-4 Problems Problem Start Date Resolved Date Status Code Code System DEPRESSION 12/27/2021 resolved 69959760 SNOMED-C T HYPERTENSION 12/27/2021 resolved 82556257 SNOMED -CT Allergies and Adverse Reactions Allergy Substance Reaction Severity Start Date Concern Status Co de Code System No Known Allergies Active 628278671 SNO MED-CT Plan of Treatment MRI UPPER EXT JOINT W/O CONTRAST 2021 US ABDOMEN LIMITED 1 ORGAN 06/12/2021 Encounters Encounter Diagnosis Start Date Code Code Sys tem Full thickness rotator cuff tear 01/30/2022 65798755 0 SNOMED-CT Personal Care Team Section Performer Name Performer Role Active Date Inactive Da te
--- OUTSIDE RECORDS SUMMARY | 2024-02-27 10:43 | XMS_ITS ---
Author Organization Unknown Address [address] [place] [phone] Phone Care Team Providers Care E Business Specialist Name Role Phone RASHEEDA Angulo Attending Unavailable CHRISTIANO Marcial Primary Unavailable Social History Type Status Start Date End Date Code Code Syst em Smoking History Never smoker (Never Smoked) 766544276 SNOMED CT Sex Male Hospital Discharge Instructions [...] FDA Left shoulder rotator cuff repair 03/23 0390453 3 12/18/2025 Arthre x(R) AR-2326 BCC Tendon/lig ament bone anchor, bioabsorba ble 0100 8888 6702 7312 1725 1130 1014 6820 01 Active FDA Left shoulder rotator cuff repair 03/23 0773800 1 01/17/2025 Arthre x(R) AR-2600 SBS-4 Problems Problem Start Date Resolved Date Status Code Code System DEPRESSION 12/27/2021 resolved 81506970 SNOMED-C T HYPERTENSION 12/27/2021 resolved 07724578 SNOMED -CT Allergies and Adverse Reactions Allergy Substance Reaction Severity Start Date Concern Status Co de Code System No Known Allergies Active 508617818 SNO MED-CT Plan of Treatment MRI UPPER EXT JOINT W/O CONTRAST 2021 US ABDOMEN LIMITED 1 ORGAN 06/12/2021 Encounters Encounter Diagnosis Start Date Code Code Sys tem Postprocedural state finding 07/31/2022 156621028 SNOMED-CT Personal Care Team Section Performer Name Performer Role Active Date Inactive Da te
--- OUTSIDE RECORDS SUMMARY | 2024-02-27 10:43 | XMS_ITS ---
Author Organization Unknown Address [address] [place] [phone] Phone Care Team Providers Care Solar/Renewable Energy Sales Name Role Phone RASHEEDA Angulo Attending Unavailable CHRISTIANO Marcial Primary Unavailable Social History Type Status Start Date End Date Code Code Syst em Smoking History Never smoker (Never Smoked) 421640043 SNOMED CT Sex Male Hospital Discharge Instructions [...] FDA Left shoulder rotator cuff repair 03/23 4274525 3 12/18/2025 Arthre x(R) AR-2326 BCC Tendon/lig ament bone anchor, bioabsorba ble 0100 8888 6702 7312 1725 1130 1014 6820 01 Active FDA Left shoulder rotator cuff repair 03/23 6987053 1 01/17/2025 Arthre x(R) AR-2600 SBS-4 Problems Problem Start Date Resolved Date Status Code Code System DEPRESSION 12/27/2021 resolved 33500140 SNOMED-C T HYPERTENSION 12/27/2021 resolved 85891122 SNOMED -CT Allergies and Adverse Reactions Allergy Substance Reaction Severity Start Date Concern Status Co de Code System No Known Allergies Active 485943768 SNO MED-CT Plan of Treatment MRI UPPER EXT JOINT W/O CONTRAST 2021 US ABDOMEN LIMITED 1 ORGAN 06/12/2021 Encounters Encounter Diagnosis Start Date Code Code Sys tem Follow-up orthopedic assessment 05/01/2022 505633844 SNOMED-CT Personal Care Team Section Performer Name Performer Role Active Date Inactive Da te
--- OUTSIDE RECORDS SUMMARY | 2024-02-27 10:43 | XMS_ITS ---
Author Organization Unknown Address [address] [place] [address] [phone] Phone Care Team Providers Care Elementary Education Tutor Name Role Phone RASHEEDA Angulo Attending Unavailable BLAIR LYNCH SUIT MAKER Unavailable ABHIJEET Horne Physician Resistance Welding Machine Operator Unavailable CHRISTIANO Marcial Primary Unavailable Social History Type Status Start Date End Date Code Code Syst em Smoking History Never smoker (Never Smoked) 139902909 SNOMED CT Sex Male Vital Signs Vital Sign Value Unit [place] Value [place] Unit Date/Time Recent/Initial? Code Code System Body Mass Index 23.87 kg/m2 03/09/2022 09:34 Initial 23664 -5 [facility] Systolic Blood Pressure 111 mm[Hg] 03/23/2022 17:58 Initial 8480- 6 LOINC Diastolic Blood Pressure 72 mm[Hg] 03/23/2022 17:58 Initial 8462- 4 INC Body Surface Area 1.91 m2 03/09/2022 09:34 Initial 3140- 1 LOINC Height 176.530 0 cm 69.50 in 03/09/2022 09:34 Initial 8302- 2 LOINC O2 Saturation 100 % 2022 17:58 Initial 47841 -5 LOINC Pulse 72.0 /min 03/23/2022 17:58 Initial 8867- 4 LOINC Respiration 16 /min 03/23/19 17:58 Initial 9279- 1 LOINC Temperature 36.1 [place] 97.0 F 03/23/19 17:58 Initial 8310- 5 LOINC Weight 74.39 kg 164.00 lbs 03/09/2022 09:34 Initial 52245 -7 [facility] Hospital Discharge Instructions Should you have any questions prior to discharge, please contact a member of your healthcare team. If you have left the hospital and have any questions, please contact your primary care physician. Reason For Referral No Data Found Procedures Procedure Name Date Status Code Code Syste m Repair, Ruptured Musculotend inous Cuff; Chronic 03/23/2022 completed 16608 CPT Injection Anesthetic Agent a nd/or Steroid; Brachial Plexus Including Imaging Guidance When Performed 03/23/2022 completed 90697 CPT Anesthesia, Nerves/Muscles/T endons/Fascia & Bursae, Shoulder/Axilla 03/23/2022 completed 23943 CPT Implants Implanted JACKY Status Assigning Authority Procedure Date Lot Number Serial Number Manufacturing Date Expiration Date Distinct ID Code Brand Name Model Number Tendon/lig ament bone anchor, bioabsorba ble 0100 8888 6731 1282 1726 1031 1015 0260 43 Active FDA Left shoulder rotator cuff repair 03/23 [id number] 3 12/18/2025 Arthre x(R) AR-2326 BCC Tendon/lig ament bone anchor, bioabsorba ble 0100 8888 6702 7312 1725 1130 1014 6820 01 Active FDA Left shoulder rotator cuff repair 03/23 [id number] 1 01/17/2025 Arthre x(R) AR-2600 SBS-4 Problems Problem Start Date Resolved Date Status Code Code System DEPRESSION 12/27/2021 resolved 45497772 SNOMED-C T HYPERTENSION 12/27/2021 resolved 88410548 SNOMED -CT Allergies and Adverse Reactions Allergy Substance Reaction Severity Start Date Concern Status Co de Code System No Known Allergies Active 955138730 SNO MED-CT Plan of Treatment MRI UPPER EXT JOINT W/O CONTRAST 2021 US ABDOMEN LIMITED 1 ORGAN 06/12/2021 Encounters Encounter Diagnosis Start Date Code Code Sys tem Complete rotator cuff tear o r rupture of left shoulder, not specified as traumatic 03/23/2022 SNOMED-CT Personal Care Team Section Performer Name Performer Role Active Date Inactive Da te
--- OUTSIDE RECORDS SUMMARY | 2024-02-27 10:43 | XMS_ITS ---
Author Organization Unknown Address [address] [place] [address] [phone] Phone Care Team Providers Care Nematology Teacher Name Role Phone RASHEEDA Angulo Attending Unavailable Social History Type Status Start Date End Date Code Code Syst em Smoking History Never smoker (Never Smoked) 536687217 SNOMED CT Sex Male Hospital Discharge Instructions [...] FDA Left shoulder rotator cuff repair 03/23 6536034 3 12/18/2025 Arthre x(R) AR-2326 BCC Tendon/lig ament bone anchor, bioabsorba ble 0100 8888 6702 7312 1725 1130 1014 6820 01 Active FDA Left shoulder rotator cuff repair 03/23 2823633 1 01/17/2025 Arthre x(R) AR-2600 SBS-4 Problems Problem Start Date Resolved Date Status Code Code System DEPRESSION 12/27/2021 resolved 80352531 SNOMED-C T HYPERTENSION 12/27/2021 resolved 26228169 SNOMED -CT Allergies and Adverse Reactions Allergy Substance Reaction Severity Start Date Concern Status Co de Code System No Known Allergies Active 407655328 SNO MED-CT Plan of Treatment MRI UPPER EXT JOINT W/O CONTRAST 2021 US ABDOMEN LIMITED 1 ORGAN 06/12/2021 Encounters Encounter Diagnosis Start Date Code Code Sys tem Full thickness rotator cuff tear 03/23/202263596291 0 SNOMED-CT Personal Care Team Section Performer Name Performer Role Active Date Inactive Da te
--- OUTSIDE RECORDS SUMMARY | 2024-02-27 10:45 | XMS_ITS | Encounter Summary ---
Author Organization [facility] Address [facility] [place] [address] Care Team Providers Care Sizing End Bander Name Role Phone Jeff Pfeiffer MD Primary Care Provider [phone] Encounter Details Date Type Department Care Team (Late st Contact Info) Description 02/14/2024 8:25 AM EST Office Visit Radiation Oncology at [address] [address] Leroy Berumen MD [address] [place] [address] [place] [address] Malignant neoplasm of prostate Social History Tobacco Use Types Packs/Day Years Used Date Smoking Tobacco: Former Cigarettes Q uit: 1989 Smokeless Tobacco: Never Alcohol Use Standard Drinks/Week Comments Yes 15 (1 standard drink = 0.6 oz pu re alcohol) [facility] Utilities Answer Date Recorded In the past 12 months has th e [employer], gas, oil, or water [employer] threatened to shut off services in your [...] place to sleep or slept in a intermediate (including now)? No 06/19/2023 Sex and Gender Information Value Date Recorded Sex Assigned at Not on file Gender Identity Not on file Sexual Orientation Not on file Travel History Travel Start Travel End [facility] 12/28/2023 01/27/2024 documented as of this encounter Last Filed Vital Signs Vital Sign Reading Time Taken Comments Blood Pressure 147/73 02/14/2024 8:54 AM EST Pulse 53 02/14/2024 8:54 AM EST Temperature 36.2 ??C (97.2 ??F) 02/14/2024 8:54 AM ES T Respiratory Rate 16 02/14/2024 8:54 AM EST Oxygen Saturation 100% 02/14/2024 8:54 AM EST Inhaled Oxygen Concentration - - Weight - - Height - - Body Mass Index - - documented in this encounter Progress Notes * Leroy Berumen MD - 02/14/2024 8:25 AM EST Images from the original note were not included. [facility] Medicine Radiation Oncology Radiation Oncology On-treatment Visit Note Patient ID Patient name: Rolando Brown Date of : 1955 Referring: Dr Blue PCP: Dr Pfeiffer Chief complaint: Fav Intermediate Risk Prostate Cancer (GG2, PSA 6.0, cT1c; Decipher HR (0.72)) Treatment Details Intent: Definitive (Curative) Concurrent Therapy: ST-ADT (planned 6 months) ONCBCN ONCOLOGY (AMB) leuprolide 7.5 mg (Lupron Depot) IM 10/18/2023 7.5 mg 11/15/2023 7.5 mg 12/13/2023 7.5 mg 01/10/2024 7.5 mg 02/07/2024 7.5 mg Modality: VMAT Treatment Site Prostate + Proximal SV / Pelvis Prescribed Dose 70Gy in 28 fractions / 50.4 Gy in 28 fractions Current Dose: 5 Gy in 2 fractions Interval Clinical Course General No changes since last seen. Started this week. GI No diarrhea. Nocturia 3-4 x/nt at baseline. Baseline IPSS history is listed below. 06/19/2023 10:24 AM 06/19/2023 10:25 AM Prostate Today's Scores Sexual Health Inventory for Men 25 25 International Prostate Symptom Score 7 ( Mild LUTS) Pain: Pain score today is 0/10. Performance Status KPS Score ECOG Grade Definition XX 90-100 [...] selfcare; totally confined to bed or chair Medications Medications 02/14/24 0847 Medication Sig Taking? atorvastatin (Lipitor) 40 mg tablet Take 20 mg by mouth Daily @ 0600. Yes cholecalciferol (Vitamin D3) 1,000 unit tablet Take 1,000 Units by mouth daily. Yes tamsulosin (Flomax) 0.4 mg capsule Take 1 capsule by mouth nightly. Taking 0.8 mg Yes ubiquinone (Ubiquinone) 100 mg capsule Take 125 mg by mouth daily. Yes acyclovir (Zovirax) 400 mg tablet Take 400 mg by mouth as needed (coldsores). Exam Patient Vitals for the past 24 hrs: Temp Pulse Resp BP SpO2 02/14/24 0854 36.2 ??C (97.2 ??F) 53 16 147/73 100 % General: Appears well, in no distress Imaging/Labs Interval setup imaging has been checked and approved. See [employer] for details. 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 Continue as planned. Next / final Lupron due 03/06 Followup: Return to clinic next week for on treatment check. No orders of the defined types were placed in this encounter. National [employer] [place] (NCI) [facility] [employer] Commission on Cancer (ACS [place]) Accredited Cancer Program [employer] (ACR) Accredited Radiation Oncology Program documented in this encounter Plan of Treatment Upcoming Encounters Date Type Department Care Team (Late st Contact Info) Description 02/28/2024 9:15 AM EST Scheduled View Only Radiation Oncology at [address] [phone] 02/28/2024 9:25 AM EST Office Visit Radiation Oncology at [address] [address] Leroy Berumen MD [address] [place] [address] [place] [address] 03/02/2024 9:30 AM EST Scheduled View Only Radiation Oncology at [address] [address] 03/03/2024 9:15 AM EST Scheduled View Only Radiation Oncology at [address] [address] 03/04/2024 9:45 AM EST Scheduled View Only Radiation Oncology at [address] [address] 03/05/2024 9:30 AM EST Scheduled View Only Radiation Oncology at [address] [address] 03/06/2024 8:30 AM EST Infusion Hematology Oncology at [address] [phone] 03/06/2024 9:15 AM EST Scheduled View Only Radiation Oncology at [address] [address] 03/09/2024 9:15 AM EST Scheduled View Only Radiation Oncology at [address] [place] [address] 03/10/2024 9:15 AM EST Scheduled View Only Radiation Oncology at [address] [place] [address] 03/11/2024 9:15 AM EST Scheduled View Only Radiation Oncology at [address] [place] [address] 03/12/2024 9:15 AM EST Scheduled View Only Radiation Oncology at [address] [place] [address] 03/13/2024 9:15 AM EST Scheduled View Only Radiation Oncology at [address] [place] [address] 03/16/2024 9:15 AM EST Scheduled View Only Radiation Oncology at [address] [place] [address] 03/17/2024 9:15 AM EST Scheduled View Only Radiation Oncology at [address] [place] [address] 03/18/2024 9:15 AM EST Scheduled View Only Radiation Oncology at [address] [place] [address] 03/19/2024 9:15 AM EST Scheduled View Only Radiation Oncology at [address] [place] [address] 03/20/2024 9:15 AM EST Scheduled View Only Radiation Oncology at [address] [place] [address] 03/23/2024 9:15 AM EST Scheduled View Only Radiation Oncology at [address] [place] [address] 03/24/2024 9:30 AM EST Scheduled View Only Radiation Oncology at [address] [place] [address] documented as of this encounter Visit Diagnoses Diagnosis Malignant neoplasm of prostate documented in this encounter Care Teams Sizing End Bander Relationship Specialty Start Date End Date Jeff Pfeiffer MD [address] [place] [address] PCP - General Family Medicine 03/12/23 documented as of this encounter
--- OUTSIDE RECORDS SUMMARY | 2024-02-27 10:45 | XMS_ITS ---
Author Organization Unknown Address [address] [place] [address] [phone] Phone Care Team Providers Care Boomswing Operator Name Role Phone RASHEEDA Angulo Attending Unavailable CHRISTIANO Marcial Primary Unavailable Social History Type Status Start Date End Date Code Code Syst em Smoking History Never smoker (Never Smoked) 622177774 SNOMED CT Sex Male Hospital Discharge Instructions [...] FDA Left shoulder rotator cuff repair 03/23 [id number] 3 12/18/2025 Arthre x(R) AR-2326 BCC Tendon/lig ament bone anchor, bioabsorba ble 0100 8888 6702 7312 1725 1130 1014 6820 01 Active FDA Left shoulder rotator cuff repair 03/23 0330519 1 01/17/2025 Arthre x(R) AR-2600 SBS-4 Problems Problem Start Date Resolved Date Status Code Code System DEPRESSION 12/27/2021 resolved 85016801 SNOMED-C T HYPERTENSION 12/27/2021 resolved 50084503 SNOMED -CT Allergies and Adverse Reactions Allergy Substance Reaction Severity Start Date Concern Status Co de Code System No Known Allergies Active 717013387 SNO MED-CT Plan of Treatment MRI UPPER EXT JOINT W/O CONTRAST 2021 US ABDOMEN LIMITED 1 ORGAN 06/12/2021 Encounters Encounter Diagnosis Start Date Code Code Sys tem Postprocedural state finding 05/07/2023 920544749 SNOMED-CT Personal Care Team Section Performer Name Performer Role Active Date Inactive Da te
--- OUTSIDE RECORDS SUMMARY | 2024-02-27 10:45 | XMS_ITS | Clinical Summary ---
Author Organization [facility] Address [facility] [place] [address] Care Team Providers Care Supervisor Lead Burning Name Role Phone Jeff Pfeiffer MD Primary Care Provider [phone] Allergies No known active allergies Medications Medication Sig Dispensed Refills Start Date End Date Status atorvastatin (Lipitor) 40 mg tablet Take 20 mg by mouth Daily @ 0600. Active cholecalciferol (Vitamin D3) 1,000 unit tablet Take 1,000 Units by mouth daily. 05/22/2019 Active tamsulosin (Flomax) 0.4 mg capsule Take 1 capsule by mouth nightly. Taking 0.8 mg Active ubiquinone (Ubiquinone) 100 mg capsule Take [...] Encounters Date Type Department Care Team Description 02/26/2024 Travel 02/24/2024 Travel 02/21/2024 10:10 AM EST Office Visit Radiation Oncology at [address] [phone] Jacob Cr MD Malignant neoplasm of prostate 02/20/2024 Travel 02/17/2024 Travel 02/14/2024 8:25 AM EST Office Visit Radiation Oncology at [address] [address] Leroy Berumen MD Malignant neoplasm of prostate 02/13/2024 Travel 02/07/2024 2:00 PM EST Infusion Hematology Oncology at [address] [address] Malignant neoplasm of prostate 02/07/2024 Travel 01/27/2024 10:00 AM EST Ancillary Appointment [place] [address] Leroy Berumen MD Malignant neoplasm of prostate 01/27/2024 7:50 AM EST - 01/27/2024 11:59 PM EST Hospital [place] [address] Leroy Berumen MD Malignant neoplasm of prostate Discharge Disposition: Home 01/27/2024 Travel 01/10/2024 8:30 AM EST Infusion Hematology Oncology at [address] [address] Malignant neoplasm of prostate 01/10/2024 Travel 01/08/2024 9:00 AM EST Procedure visit Radiation Oncology at [address] [address] Leroy eBrumen MD Malignant neoplasm of prostate 01/08/2024 Travel 01/01/2024 3:00 PM EST Telephone Radiation Oncology at [address] [address] Rad NurseSt Judge Pre Procedure Call 12/30/2023 Telephone Radiation Oncology at [address] [address] Melba Soler 12/13/2023 8:30 AM EDT Infusion Hematology Oncology at [address] [address] Malignant neoplasm of prostate 12/13/2023 Travel from Last 3 Months Family History Medical History Relation Comments Cancer Maternal Uncle Cancer Mother Relation Status Comments Maternal Uncle Mother Social History Tobacco Use Types Packs/Day Years Used Date Smoking Tobacco: Former Cigarettes Q uit: 1989 Smokeless Tobacco: Never Tobacco Cessation:Counseling Given: Not Answered Alcohol Use Standard Drinks/Week Comments Yes 15 (1 standard drink = 0.6 oz pu re alcohol) [facility] Utilities Answer Date Recorded In the [...] file Travel History Travel Start Travel End [facility] 12/28/2023 01/27/2024 Last Filed Vital Signs Vital Sign Reading Time Taken Comments Blood Pressure 155/78 02/21/2024 10:43 AM EST Pulse 72 02/21/2024 10:43 AM EST Temperature 36.3 ??C (97.3 ??F) 02/21/2024 10:[address] Respiratory Rate 16 02/21/2024 10:43 AM EST Oxygen Saturation 100% 02/21/2024 10:43 AM EST Inhaled Oxygen Concentration - - Weight 76.8 kg (169 lb 6.4 oz) 02/07/2024 2:11 P M EST Height 177.8 cm (5' 10) 01/10/2024 8:35 AM EST Body Mass Index 24.31 01/10/2024 8:35 AM EST Plan of Treatment Upcoming Encounters Date Type Department Care Team (Late st Contact Info) Description 02/28/2024 9:15 AM EST Scheduled View Only Radiation Oncology at [address] [address] 02/28/2024 9:25 AM EST Office Visit Radiation Oncology at [address] [address] Leroy Berumen MD [address] [place] [address] [place] [address] 03/02/2024 9:30 AM EST Scheduled View Only Radiation Oncology at [address] [address] 03/03/2024 9:15 AM EST Scheduled View Only Radiation Oncology at [address] [address] 03/04/2024 9:45 AM EST Scheduled View Only Radiation Oncology at [address] [address] 03/05/2024 9:30 AM EST Scheduled View Only Radiation Oncology at [address] [address] 03/06/2024 8:30 AM EST Infusion Hematology Oncology at [address] [address] 03/06/2024 9:15 AM EST Scheduled View Only Radiation Oncology at [address] [address] 03/09/2024 9:15 AM EST Scheduled View Only Radiation Oncology at [address] [address] 03/10/2024 9:15 AM EST Scheduled View Only Radiation Oncology at [address] [address] 03/11/2024 9:15 AM EST Scheduled View Only Radiation Oncology at [address] [address] 03/12/2024 9:15 AM EST Scheduled View Only Radiation Oncology at [address] [address] 03/13/2024 9:15 AM EST Scheduled View Only Radiation Oncology at [address] [address] 03/16/2024 9:15 AM EST Scheduled View Only Radiation Oncology at [address] [address] 03/17/2024 9:15 AM EST Scheduled View Only Radiation Oncology at [address] [address] 03/18/2024 9:15 AM EST Scheduled View Only Radiation Oncology at [address] [address] 03/19/2024 9:15 AM EST Scheduled View Only Radiation Oncology at [address] [address] 03/20/2024 9:15 AM EST Scheduled View Only Radiation Oncology at [address] [address] 03/23/2024 9:15 AM EST Scheduled View Only Radiation Oncology at [address] [address] 03/24/2024 9:30 AM EST Scheduled View Only Radiation Oncology at [address] [address] Health Maintenance Due Date Last Done Comments CT Colonography 1955 Colonoscopy 1955 Colorectal Cancer Screening 1955 FIT DNA 1955 FIT 1955 Sigmoidoscopy (10 year) with FIT yearly 1955 Sigmoidoscopy 1955 Hepatitis C Screening 1973 Tetanus/Diphtheria/Pertussis Vaccines (1 - Tdap) 03/25 Pneumoccocal Vaccine: 65+ (1 of 1 - PCV) 2005 Zoster vaccine (1 of 2) 2005 Advance Directive 2010 AAA Screen 2020 Covid-19 Vaccine ( - season) 2023 Influenza (Flu) vaccine (1 o f 1 - Influenza standard series) 10/20/2023 Procedures Procedure Name Priority Date/Time Associated Diagnosis Comments CT RAD ONC BODY INTERP ONLY Routine 01/27/2024 11:05 AM EST Prostate cancer Malignant neoplasm of prostate MRI PELVIS WO (PROSTATE) Routine 01/27/2024 9:09 AM EST Malignant neoplasm of prostate from Last 3 Months Results * CT Rad Onc Body Interp Only (01/27/2024 11:05 AM EST) [employer] WORKSTATION ID [id number] RAD Anatomical Region Laterality Modality Abdomen Computed Tomogra phy Impressions 01/27/2024 11:[address] scan imaging for radiation planning purposes. Fiducial markers seen within the prostate. Thank you for letting us participate in the care of this patient. ??If you are a health care provider and have any questions regarding this report, please contact the number below. ??For patients who have questions please contact the health health care analyst that requested your imaging first. ? Electronically signed by: Efren Arreguin [facility] ([phone]), at 01/27/2024 11:09 AM Narrative 01/27/2024 11:09 AM EST EXAMINATION: CT RAD ONC BODY INTERP ONLY CLINICAL HISTORY: prostate ca C61, Malignant neoplasm of prostate - C61, Malignant neoplasm of prostate TECHNIQUE: Limited CT without the use of oral or IV contrast performed for the purposes of localization for radiation treatment. COMPARISON: 03/14/2023 prostate MRI FINDINGS: Pelvis: Solid organs: Visualized lower kidneys grossly unremarkable. Bowel and mesentery: No obstructive or inflammatory process. Scattered colonic diverticula. Bladder: Decompressed but grossly unremarkable. Prostate: Fiducial markers within the prostate. Lymph nodes: No adenopathy Osseous structures: No suspicious lesions Procedure Note Efren Arreguin MD - 01/27/2024 EXAMINATION: CT RAD ONC BODY INTERP ONLY CLINICAL HISTORY: prostate ca C61, Malignant neoplasm of prostate - C61, Malignant neoplasm ofprostate TECHNIQUE: Limited CT without the use of oral or IV contrast performed forthe purposes of localization for radiation treatment. COMPARISON: 03/14/2023 prostate MRI FINDINGS: Pelvis: Solid organs: Visualized lower kidneys grossly unremarkable. Bowel and mesentery: No obstructive or inflammatory process. Scatteredcolonic diverticula. Bladder: Decompressed but grossly unremarkable. Prostate: Fiducial markers within the prostate. Lymph nodes: No adenopathy Osseous structures: No suspicious lesions IMPRESSION CT scan imaging for radiation planning purposes. Fiducial markers seenwithin the prostate. Thank you for letting us participate in the care of this patient. If youare a health care provider and have any questions regarding this report,please contact the number below. For patients who have questions please contactthe health health care analyst that requested your imaging first. Leroy Berumen MD IMG OUTSIDE INTERPRE TATION ORDERABLES * MRI Pelvis wo (Prostate) (01/27/2024 9:09 AM EST) WORKSTATION ID [id number] RAD Anatomical Region Laterality Modality Pelvis Magnetic Resonan ce Impressions 01/27/2024 1:25 PM EST Limited MRI for radiation treatment planning. Thank you for letting us participate in the care of this patient. ??If you are a health care provider and have any questions regarding this report, please contact the number below. ??For patients who have questions please contact the health health care analyst that requested your imaging first. ? Electronically signed by: Jann Pacheco MD, [facility] ([phone]), at 01/27/2024 1:25 PM Narrative 01/27/2024 1:25 PM EST EXAMINATION: MRI PELVIS WO (PROSTATE) CLINICAL HISTORY: Radiotherapy planning C61, Malignant neoplasm of prostate TECHNIQUE: MRI of the prostate without contrast. COMPARISON: Prostate MRI 03/14/2023 FINDINGS: Solid organs: The prostate measures 3.1 x 4.1 x 4.7 cm for calculated volume of 31.1 cc. Bilateral prostate fiducial markers are present. Bowel and mesentery: No obstructive or inflammatory process Urinary bladder: No significant findings. Lymph nodes: No adenopathy Osseous structures: No suspicious marrow signal. Procedure Note Jann Pacheco MD - 01/27/2024 EXAMINATION: MRI PELVIS WO (PROSTATE) CLINICAL HISTORY: Radiotherapy planning C61, Malignant neoplasm of prostate TECHNIQUE: MRI of the prostate without contrast. COMPARISON: Prostate MRI 03/14/2023 FINDINGS: Solid organs: The prostate measures 3.1 x 4.1 x 4.7 cm for calculatedvolume of 31.1 cc. Bilateral prostate fiducial markers are present. Bowel and mesentery: No obstructive or inflammatory process Urinary bladder: No significant findings. Lymph nodes: No adenopathy Osseous structures: No suspicious marrow signal. IMPRESSION Limited MRI for radiation treatment planning. Thank you for letting us participate in the care of this patient. If youare a health care provider and have any questions regarding this report,please contact the number below. For patients who have questions please contactthe health health care analyst that requested your imaging first. Electronically signed by: Jann Pacheco MD, [facility]([phone]), at 01/27/2024 1:25 PM Leroy Berumen MD IMG MRI ORDERABLES from Last 3 Months Care Teams Supervisor Lead Burning Relationship Specialty Start Date End Date Jeff Pfeiffer MD [address] [place], [place] [address] PCP - General Family Medicine 03/12/23
--- OUTSIDE RECORDS SUMMARY | 2024-02-27 10:45 | XMS_ITS | Encounter Summary ---
[facility] Address [facility] [place] [address] Care Team Providers Care Passenger Tire Inspector Name Role Phone Jeff Pfeiffer MD Primary Care Provider [phone] Reason for Visit * Consultation (Routine) - Closed Specialty Diagnoses / Procedures Referred By Neil keller Referred To Contact Radiation Oncology Diagnoses Malignant neoplasm of prostate Procedures Simulation for Radiation Therapy Planning Teetee Han MD [facility] [place] [address] [facility] [place] [address] Referral ID Status Reason Start Date Expiration Date V isits Requested Visits Authorized [id number] Closed Consult, Test & Treat 01/08/2024 02/18/2024 29 29 Encounter Details Date Type Department Care Team (Latest Contact Info) Description 01/27/2024 10:00 AM EST Ancillary Appointment [place] [address] Leroy Berumen MD [address] [place] [address] DR RADIATION ONCOLOGY [place], [place] [id number] Malignant neoplasm of prostate Social History Tobacco Use Types Packs/Day Years Used Date Smoking Tobacco: Former Cigarettes Q uit: 1989 Smokeless Tobacco: Never Alcohol Use Standard Drinks/Week Comments Yes 15 (1 standard drink = 0.6 oz pu re alcohol) [facility] Utilities Answer Date Recorded In the past 12 months has [employer], gas, oil, or water [employer] threatened to shut off services in your [...] place to sleep or slept in a residential (including now)? No 06/19/2023 Sex and Gender Information Value Date Recorded Sex Assigned at Not on file Gender Identity Not on file Sexual Orientation Not on file Travel History Travel Start Travel End [facility] 12/28/2023 01/27/2024 documented as of this encounter Last Filed Vital Signs Vital Sign Reading Time Taken Comments Blood Pressure 117/66 01/27/2024 9:42 AM EST Pulse 71 01/27/2024 9:42 AM EST Temperature 35.9 ??C (96.7 ??F) 01/27/2024 9:42 AM ES T Respiratory Rate 18 01/27/2024 9:42 AM EST Oxygen Saturation 96% 01/27/2024 9:42 AM EST Inhaled Oxygen Concentration - - Weight 73.5 kg (162 lb) 01/27/2024 9:46 AM EST Height - - Body Mass Index 23.24 01/10/2024 8:35 AM EST documented in this encounter Patient Instructions * Patient Instructions* Yaa Blanchard RN - 01/27/2024 10:00 AM EST General instructions for Radiation therapy Radiation Oncology Team Radiation Oncologist -The doctor who will direct all aspects of your radiation treatments Nurse Practitioner - They assist your doctor in treating your side effects and with follow up appointments. Registered Nurse - They assist you in learning about your radiation treatments and things you can do to help manage the side effects. Machine Design Engineer - They take the doctors radiation prescription and customize it into doses (or days of treatments) specific for you. Physicist - They make sure all the machines are operating correctly and double check calculations for your treatment. Radiation Technologists - They operate the machines which deliver your radiation. You see them daily and they schedule your treatments. Skin Care - Your nurse/physician will provide you with the necessary creams and supplies as you need them during your treatments. Please make sure to keep the treatment area clean and dry. Be sure to notice if your clothing rubs or digs into the treatment area and try to wear clothes which are less abrasive, like cotton or loose fitting. Do not use harsh soaps, ointments, deodorants or tapes in the treatment area unless directed by your nurse or doctor. Keep the treatment area out of the sun during treatments. General precautions- DO NOT USE heating pads, hot water bottles, hot poultices, heat lamps, heat in any form, or ice packs to the area of your body being treated. It is common to start feeling fatigue after a few weeks of being treated. You can help minimize this by getting regular exercise or walking and getting plenty of rest. In general a well balanced diet is recommended. The certified prosthetist vice president and nurse will inform you of any special diet requirements. Planning A planning session (CT Simulation) and possibly an MRI will be scheduled for you. These images are used to plan your radiation treatment. At this visit you will receive small tattoo dots on your skin. These help joão exactly how you willbe lined up on the radiation treatment table. You will also be asked to have a comfortably full bladder for this simulation and for each radiation treatment. Urine in your bladder helps protect your bladder tissue from the radiation and helps keep some of your bowel out of the treatment area. About 2 weeks after simulation you will begin radiation treatments. What to Expect During Treatments. Treatments are given in 15-30 minutes increments daily Saturday through Saturday during the hours of 7:30 am- [address] yourself to and from these appointments. You may request a certain time of day that is convenient for you. You may start feeling some side effects after a couple weeks. Side effects result from the radiation causing your prostate to swell and irritating cells near your prostate or the prostate bed area. These may include some changes in your urination. It may become more difficult to start your flow. You may need to void more often. Your stream may be weaker. You may have some discomfort when you urinate. Please tell the nurse or your doctor if you experience any of these symptoms. You may notice a change in your bowel patterns. Your bowel movements may be more frequent and/or loose. If you develop bowel symptoms, please let the nurse or your doctor know. Please ask the nurse or your doctor if you have any questions or concerns about your personalized course of treatment. Dr Berumen documented in this encounter Progress Notes * Leroy Berumen MD - 01/27/2024 10:00 AM EST Images from the original note were not included. [facility] Radiation Oncology and [employer] Radiation Oncology Simulation/Treatment Planning Note nPatient identifiers/demographics: Name: Rolando Brown Date of : 1955 Chief complaint/reason for visit: Cancer Staging Malignant neoplasm of prostate Staging form: Prostate, AJCC 8th Edition - Clinical: Stage IIB (cT1c, cN0, cM0, PSA: 8.6, Grade Group: 2) - Signed by Leroy Berumen MD on 06/14/2023 nProcedure detail: Simulation for radiotherapy planning was performed successfully, per my orders as documented in the[employer] treatment planning system. Treatment start will be scheduled shortly. LEROY BERUMEN MD, MS [facility] Radiation Oncology [facility] ([facility] [employer] Commission on Cancer ([employer] [place]) Accredited Cancer Program [employer] (ACR) Accredited Radiation Oncology Program documented in this encounter Plan of Treatment Upcoming Encounters Date Type Department Care Team (Late st Contact Info) Description 02/28/2024 9:15 AM EST Scheduled View Only Radiation Oncology at [address] [phone] 02/28/2024 9:25 AM EST Office Visit Radiation Oncology at [address] [address] Leroy Berumen MD [address] [place] [address] [place] [address] 03/02/2024 9:30 AM EST Scheduled View Only Radiation Oncology at [address] [address] 03/03/2024 9:15 AM EST Scheduled View Only Radiation Oncology at [address] [address] 03/04/2024 9:45 AM EST Scheduled View Only Radiation Oncology at [address] [address] 03/05/2024 9:30 AM EST Scheduled View Only Radiation Oncology at [address] [address] 03/06/2024 8:30 AM EST Infusion Hematology Oncology at [address] [address] 03/06/2024 9:15 AM EST Scheduled View Only Radiation Oncology at [address] [address] 03/09/2024 9:15 AM EST Scheduled View Only Radiation Oncology at [address] [address] 03/10/2024 9:15 AM EST Scheduled View Only Radiation Oncology at [address] [address] 03/11/2024 9:15 AM EST Scheduled View Only Radiation Oncology at [address] [address] 03/12/2024 9:15 AM EST Scheduled View Only Radiation Oncology at [address] [address] 03/13/2024 9:15 AM EST Scheduled View Only Radiation Oncology at [address] [address] 03/16/2024 9:15 AM EST Scheduled View Only Radiation Oncology at [address] [address] 03/17/2024 9:15 AM EST Scheduled View Only Radiation Oncology at [address] [address] 03/18/2024 9:15 AM EST Scheduled View Only Radiation Oncology at [address] [address] 03/19/2024 9:15 AM EST Scheduled View Only Radiation Oncology at [address] [address] 03/20/2024 9:15 AM EST Scheduled View Only Radiation Oncology at [address] [address] 03/23/2024 9:15 AM EST Scheduled View Only Radiation Oncology at [address] [address] 03/24/2024 9:30 AM EST Scheduled View Only Radiation Oncology at [address] [address] documented as of this encounter Visit Diagnoses Diagnosis Malignant neoplasm of prostate documented in this encounter Care Teams Passenger Tire Inspector Relationship Specialty Start Date End Date Jeff Pfeiffer MD [address] [address] PCP - General Family Medicine 03/12/23 documented as of this encounter
--- OUTSIDE RECORDS SUMMARY | 2024-02-27 10:45 | XMS_ITS | Encounter Summary ---
Author Organization [facility] Address [facility] [place] [address] Care Team Providers Care Curriculum Specialist Name Role Phone Jeff Pfeiffer MD Primary Care Provider [phone] Encounter Details Date Type Department Care Team (Latest Contact Info) Description 01/08/2024 Travel Social History Tobacco Use Types Packs/Day Years Used Date Smoking Tobacco: Former Cigarettes Q uit: 1989 Smokeless Tobacco: Never Alcohol Use Standard Drinks/Week Comments Yes 15 (1 standard drink = 0.6 oz pu re alcohol) [facility] Utilities Answer Date Recorded In [...] file Travel History Travel Start Travel End [facility] 12/28/2023 01/27/2024 documented as of this encounter Plan of Treatment Upcoming Encounters Date Type Department Care Team (Late st Contact Info) Description 02/28/2024 9:15 AM EST Scheduled View Only Radiation Oncology at [address] [address] 02/28/2024 9:25 AM EST Office Visit Radiation Oncology at [address] [address] Leroy Berumen MD [address] [place] [address] [place] [address] 03/02/2024 9:30 AM EST Scheduled View Only Radiation Oncology at [address] [address] 03/03/2024 9:15 AM EST Scheduled View Only Radiation Oncology at [address] [address] 03/04/2024 9:45 AM EST Scheduled View Only Radiation Oncology at [address] [address] 03/05/2024 9:30 AM EST Scheduled View Only Radiation Oncology at [address] [address] 03/06/2024 8:30 AM EST Infusion Hematology Oncology at [address] [address] 03/06/2024 9:15 AM EST Scheduled View Only Radiation Oncology at [address] [address] 03/09/2024 9:15 AM EST Scheduled View Only Radiation Oncology at [address] [address] 03/10/2024 9:15 AM EST Scheduled View Only Radiation Oncology at [address] [address] 03/11/2024 9:15 AM EST Scheduled View Only Radiation Oncology at [address] [address] 03/12/2024 9:15 AM EST Scheduled View Only Radiation Oncology at [address] [address] 03/13/2024 9:15 AM EST Scheduled View Only Radiation Oncology at [address] [address] 03/16/2024 9:15 AM EST Scheduled View Only Radiation Oncology at [address] [address] 03/17/2024 9:15 AM EST Scheduled View Only Radiation Oncology at [address] [address] 03/18/2024 9:15 AM EST Scheduled View Only Radiation Oncology at [address] [address] 03/19/2024 9:15 AM EST Scheduled View Only Radiation Oncology at [address] [address] 03/20/2024 9:15 AM EST Scheduled View Only Radiation Oncology at [address] [address] 03/23/2024 9:15 AM EST Scheduled View Only Radiation Oncology at [address] [address] 03/24/2024 9:30 AM EST Scheduled View Only Radiation Oncology at [address] [address] documented as of this encounter Visit Diagnoses Not on filedocumented in this encounter Care Teams Curriculum Specialist Relationship Specialty Start Date End Date Jeff Pfeiffer MD [address] [place] [address] PCP - General Family Medicine 03/12/23 documented as of this encounter
--- OUTSIDE RECORDS SUMMARY | 2024-02-27 10:45 | XMS_ITS | Encounter Summary ---
Author Organization [facility] Address [facility] [place] [address] Care Team Providers Care Floor Scrubber Name Role Phone Jeff Pfeiffer MD Primary Care Provider [phone] Encounter Details Date Type Department Care Team (Latest Contact Info) Description 01/10/2024 Travel Social History Tobacco Use Types Packs/Day Years Used Date Smoking Tobacco: Former Cigarettes Q uit: 1989 Smokeless Tobacco: Never Alcohol Use Standard Drinks/Week Comments Yes 15 (1 standard drink = 0.6 oz pu re alcohol) [facility] Utilities Answer Date Recorded In [...] place to sleep or slept in a group home (including now)? No 06/19/2023 Sex and Gender Information Value Date Recorded Sex Assigned at Not on file Gender Identity Not on file Sexual Orientation Not on file Travel History Travel Start Travel End [facility] 12/28/2023 01/27/2024 documented as of this encounter Plan of Treatment Upcoming Encounters Date Type Department Care Team (Late st Contact Info) Description 02/28/2024 9:15 AM EST Scheduled View Only Radiation Oncology at [address] [phone] 02/28/2024 9:25 AM EST Office Visit Radiation Oncology at [address] [address] Leroy Berumen MD [address] [place] [address] [place] [address] 03/02/2024 9:30 AM EST Scheduled View Only Radiation Oncology at [address] [address] 03/03/2024 9:15 AM EST Scheduled View Only Radiation Oncology at [address] [address] 03/04/2024 9:45 AM EST Scheduled View Only Radiation Oncology at [address] [address] 03/05/2024 9:30 AM EST Scheduled View Only Radiation Oncology at [address] [address] 03/06/2024 8:30 AM EST Infusion Hematology Oncology at [address] [address] 03/06/2024 9:15 AM EST Scheduled View Only Radiation Oncology at [address] [address] 03/09/2024 9:15 AM EST Scheduled View Only Radiation Oncology at [address] [address] 03/10/2024 9:15 AM EST Scheduled View Only Radiation Oncology at [address] [address] 03/11/2024 9:15 AM EST Scheduled View Only Radiation Oncology at [address] [address] 03/12/2024 9:15 AM EST Scheduled View Only Radiation Oncology at [address] [address] 03/13/2024 9:15 AM EST Scheduled View Only Radiation Oncology at [address] [address] 03/16/2024 9:15 AM EST Scheduled View Only Radiation Oncology at [address] [address] 03/17/2024 9:15 AM EST Scheduled View Only Radiation Oncology at [address] [address] 03/18/2024 9:15 AM EST Scheduled View Only Radiation Oncology at [address] [address] 03/19/2024 9:15 AM EST Scheduled View Only Radiation Oncology at [address] [address] 03/20/2024 9:15 AM EST Scheduled View Only Radiation Oncology at [address] [address] 03/23/2024 9:15 AM EST Scheduled View Only Radiation Oncology at [address] [address] 03/24/2024 9:30 AM EST Scheduled View Only Radiation Oncology at [address] [address] documented as of this encounter Visit Diagnoses Not on filedocumented in this encounter Care Teams Floor Scrubber Relationship Specialty Start Date End Date Jeff Pfeiffer MD [address] [place] [address] PCP - General Family Medicine 03/12/23 documented as of this encounter
--- OUTSIDE RECORDS SUMMARY | 2024-02-27 10:45 | XMS_ITS | Encounter Summary ---
Author Organization [facility] Address [facility] [place] [address] Care Team Providers Care Digital Print Operator Name Role Phone Jeff Pfeiffer MD Primary Care Provider [phone] Encounter Details Date Type Department Care Team (Latest Contact Info) Description 02/17/2024 Travel Social History Tobacco Use Types Packs/Day Years Used Date Smoking Tobacco: Former Cigarettes Q uit: 1989 Smokeless Tobacco: Never Alcohol Use Standard Drinks/Week Comments Yes 15 (1 standard drink = 0.6 oz pu re alcohol) [facility] Utilities Answer Date Recorded In the [...] place to sleep or slept in a ch[facility] (including now)? No 06/19/2023 Sex and Gender Information Value Date Recorded Sex Assigned at Not on file Gender Identity Not on file Sexual Orientation Not on file Travel History Travel Start Travel End [facility] 12/28/2023 01/27/2024 documented as of this encounter Plan of Treatment Upcoming Encounters Date Type Department Care Team (Late st Contact Info) Description 02/28/2024 9:15 AM EST Scheduled View Only Radiation Oncology at [address] [address] 02/28/2024 9:25 AM EST Office Visit Radiation Oncology at [address] [address] Leroy Berumen MD [address] [place] [address] [place] [address] 03/02/2024 9:30 AM EST Scheduled View Only Radiation Oncology at [address] [address] 03/03/2024 9:15 AM EST Scheduled View Only Radiation Oncology at [address] [address] 03/04/2024 9:45 AM EST Scheduled View Only Radiation Oncology at [address] [address] 03/05/2024 9:30 AM EST Scheduled View Only Radiation Oncology at [address] [address] 03/06/2024 8:30 AM EST Infusion Hematology Oncology at [address] [address] 03/06/2024 9:15 AM EST Scheduled View Only Radiation Oncology at [address] [address] 03/09/2024 9:15 AM EST Scheduled View Only Radiation Oncology at [address] [address] 03/10/2024 9:15 AM EST Scheduled View Only Radiation Oncology at [address] [address] 03/11/2024 9:15 AM EST Scheduled View Only Radiation Oncology at [address] [address] 03/12/2024 9:15 AM EST Scheduled View Only Radiation Oncology at [address] [address] 03/13/2024 9:15 AM EST Scheduled View Only Radiation Oncology at [address] [address] 03/16/2024 9:15 AM EST Scheduled View Only Radiation Oncology at [address] [address] 03/17/2024 9:15 AM EST Scheduled View Only Radiation Oncology at [address] [address] 03/18/2024 9:15 AM EST Scheduled View Only Radiation Oncology at [address] [address] 03/19/2024 9:15 AM EST Scheduled View Only Radiation Oncology at [address] [address] 03/20/2024 9:15 AM EST Scheduled View Only Radiation Oncology at [address] [address] 03/23/2024 9:15 AM EST Scheduled View Only Radiation Oncology at [address] [address] 03/24/2024 9:30 AM EST Scheduled View Only Radiation Oncology at [address] [address] documented as of this encounter Visit Diagnoses Not on filedocumented in this encounter Care Teams Digital Print Operator Relationship Specialty Start Date End Date Jeff Pfeiffer MD [address] [place] [address] PCP - General Family Medicine 03/12/23 documented as of this encounter
--- OUTSIDE RECORDS SUMMARY | 2024-02-27 10:45 | XMS_ITS | Encounter Summary ---
Author Organization [facility] Address [facility] [place] [address] Care Team Providers Care Preventive Medicine Physician Name Role Phone Jeff Pfeiffer MD Primary Care Provider [phone] Encounter Details Date Type Department Care Team (Latest Contact Info) Description 02/20/2024 Travel Social History Tobacco Use Types Packs/Day Years Used Date Smoking Tobacco: Former Cigarettes Q uit: 1989 Smokeless Tobacco: Never Alcohol Use Standard Drinks/Week Comments Yes 15 (1 standard drink = 0.6 oz pu re alcohol) [facility] Utilities Answer Date Recorded In [...] place to sleep or slept in a [place] (including now)? No 06/19/2023 Sex and Gender Information Value Date Recorded Sex Assigned at Not on file Gender Identity Not on file Sexual Orientation Not on file Travel History Travel Start Travel End [facility] 12/28/2023 01/27/2024 documented as of this encounter Plan of Treatment Upcoming Encounters Date Type Department Care Team (Late st Contact Info) Description 02/28/2024 9:15 AM EST Scheduled View Only Radiation Oncology at [address] [address] 02/28/2024 9:25 AM EST Office Visit Radiation Oncology at [address] [address] Leroy Berumen MD [address] [place] [address] [place] [address] 03/02/2024 9:30 AM EST Scheduled View Only Radiation Oncology at [address] [address] 03/03/2024 9:15 AM EST Scheduled View Only Radiation Oncology at [address] [address] 03/04/2024 9:45 AM EST Scheduled View Only Radiation Oncology at [address] [address] 03/05/2024 9:30 AM EST Scheduled View Only Radiation Oncology at [address] [address] 03/06/2024 8:30 AM EST Infusion Hematology Oncology at [address] [address] 03/06/2024 9:15 AM EST Scheduled View Only Radiation Oncology at [address] [address] 03/09/2024 9:15 AM EST Scheduled View Only Radiation Oncology at [address] [address] 03/10/2024 9:15 AM EST Scheduled View Only Radiation Oncology at [address] [address] 03/11/2024 9:15 AM EST Scheduled View Only Radiation Oncology at [address] [address] 03/12/2024 9:15 AM EST Scheduled View Only Radiation Oncology at [address] [address] 03/13/2024 9:15 AM EST Scheduled View Only Radiation Oncology at [address] [address] 03/16/2024 9:15 AM EST Scheduled View Only Radiation Oncology at [address] [address] 03/17/2024 9:15 AM EST Scheduled View Only Radiation Oncology at [address] [address] 03/18/2024 9:15 AM EST Scheduled View Only Radiation Oncology at [address] [address] 03/19/2024 9:15 AM EST Scheduled View Only Radiation Oncology at [address] [address] 03/20/2024 9:15 AM EST Scheduled View Only Radiation Oncology at [address] [address] 03/23/2024 9:15 AM EST Scheduled View Only Radiation Oncology at [address] [address] 03/24/2024 9:30 AM EST Scheduled View Only Radiation Oncology at [address] [address] documented as of this encounter Visit Diagnoses Not on filedocumented in this encounter Care Teams Preventive Medicine Physician Relationship Specialty Start Date End Date Jeff Pfeiffer MD [address] [place] [id number] PCP - General Family Medicine 03/12/23 documented as of this encounter
--- OUTSIDE RECORDS SUMMARY | 2024-02-27 10:45 | XMS_ITS | Encounter Summary ---
Author Organization [facility] Address [facility] [place] [address] Care Team Providers Care System Specialist Name Role Phone Jeff Pfeiffer MD Primary Care Provider [phone] Encounter Details Date Type Department Care Team (Latest Contact Info) Description 02/07/2024 Travel Social History Tobacco Use Types Packs/Day Years Used Date Smoking Tobacco: Former Cigarettes Q uit: 1989 Smokeless Tobacco: Never Alcohol Use Standard Drinks/Week Comments Yes 15 (1 standard drink = 0.6 oz pu re alcohol) [facility] Utilities Answer Date Recorded In the [...] place to sleep or slept in a usp (including now)? No 06/19/2023 Sex and Gender [...] EST Scheduled View Only Radiation Oncology at [address] [address] 02/28/2024 9:25 AM EST Office Visit Radiation Oncology at [address] [address] Leroy Berumen MD [address] [place] [address] [place] [address] 03/02/2024 9:30 AM EST Scheduled View Only Radiation Oncology at [address] [phone] 03/03/2024 9:15 AM EST Scheduled View Only Radiation Oncology at [address] [address] 03/04/2024 9:45 AM EST Scheduled View Only Radiation Oncology at [address] [address] 03/05/2024 9:30 AM EST Scheduled View Only Radiation Oncology at [address] [address] 03/06/2024 8:30 AM EST Infusion Hematology Oncology at [address] [address] 03/06/2024 9:15 AM EST Scheduled View Only Radiation Oncology at [address] [address] 03/09/2024 9:15 AM EST Scheduled View Only Radiation Oncology at [address] [address] 03/10/2024 9:15 AM EST Scheduled View Only Radiation Oncology at [address] [address] 03/11/2024 9:15 AM EST Scheduled View Only Radiation Oncology at [address] [address] 03/12/2024 9:15 AM EST Scheduled View Only Radiation Oncology at [address] [address] 03/13/2024 9:15 AM EST Scheduled View Only Radiation Oncology at [address] [address] 03/16/2024 9:15 AM EST Scheduled View Only Radiation Oncology at [address] [address] 03/17/2024 9:15 AM EST Scheduled View Only Radiation Oncology at [address] [address] 03/18/2024 9:15 AM EST Scheduled View Only Radiation Oncology at [address] [address] 03/19/2024 9:15 AM EST Scheduled View Only Radiation Oncology at [address] [address] 03/20/2024 9:15 AM EST Scheduled View Only Radiation Oncology at [address] [address] 03/23/2024 9:15 AM EST Scheduled View Only Radiation Oncology at [address] [address] 03/24/2024 9:30 AM EST Scheduled View Only Radiation Oncology at [address] [address] documented as of this encounter Visit Diagnoses Not on filedocumented in this encounter Care Teams System Specialist Relationship Specialty Start Date End Date Jeff Pfeiffer MD [address] [place] [address] PCP - General Family Medicine 03/12/23 documented as of this encounter
--- OUTSIDE RECORDS SUMMARY | 2024-02-27 10:45 | XMS_ITS | Encounter Summary ---
Author Organization [facility] Address [facility] [place] [address] Care Team Providers Care Sole Stainer Name Role Phone Jeff Pfeiffer MD Primary Care Provider [phone] Reason for Visit * Reason Comments Chemotherapy * Treatment/Therapy Plan Authorization (Routine) - Authorized Specialty Diagnoses / Procedures Referred By Neil keller Referred To Contact Hematology and Oncology Diagnoses Malignant neoplasm of prostate Leroy Berumen MD [address] [place] [address] [place] [address] St Hem Onc Infusion [address] [place] [phone] Referral ID Status Reason Start Date Expiration Date V isits Requested Visits Authorized [id number] Authorized 07/12/2023 07/11/2024 99 101 Encounter Details Date Type Department Care Team (Late st Contact Info) Description 02/07/2024 2:00 PM EST Infusion Hematology Oncology at [address] [address] Malignant neoplasm of prostate Social History Tobacco Use Types Packs/Day Years Used Date Smoking Tobacco: Former Cigarettes Q uit: 1989 Smokeless Tobacco: Never Alcohol Use Standard Drinks/Week Comments Yes 15 (1 standard drink = 0.6 oz pu re alcohol) [facility] Utilities Answer Date Recorded In the past 12 months has e electric, gas, oil, or water company [...] place to sleep or slept in a mcc (including now)? No 06/19/2023 Sex and Gender Information Value Date Recorded Sex Assigned at Not on file Gender Identity Not on file Sexual Orientation Not on file Travel History Travel Start Travel End [facility] 12/28/2023 01/27/2024 documented as of this encounter Last Filed Vital Signs Vital Sign Reading Time Taken Comments Blood Pressure 128/71 02/07/2024 2:11 PM EST Pulse 69 02/07/2024 2:11 PM EST Temperature 36.7 ??C (98 ??F) 02/07/2024 2:11 PM EST Respiratory Rate 16 02/07/2024 2:11 PM EST Oxygen Saturation 100% 02/07/2024 2:11 PM EST Inhaled Oxygen Concentration - - Weight 76.8 kg (169 lb 6.4 oz) 02/07/2024 2:11 P M EST Height - - Body Mass Index 24.31 01/10/2024 8:35 AM EST documented in this encounter Progress Notes * Ashwin Bergeron, RN - 02/07/2024 2:00 PM EST Infusion Note Diagnosis:Prostate Cancer Treatment: Lupron Injection Lupron injected in RIGHT gluteal per patient request due to back pain in left side. Patient instructed on side effects of Lupron. Patient states understanding of teaching, Patient aware to call clinic with any questions or concerns. Plan: Return to clinic as scheduled. documented in this encounter Plan of Treatment Upcoming Encounters Date Type Department Care Team (Late st Contact Info) Description 02/28/2024 9:15 AM EST Scheduled View Only Radiation Oncology at [address] [address] 02/28/2024 9:25 AM EST Office Visit Radiation Oncology at [address] [address] Leroy Berumen MD [address] [place] [address] [place] [address] 03/02/2024 9:30 AM EST Scheduled View Only Radiation Oncology at [address] [address] 03/03/2024 9:15 AM EST Scheduled View Only Radiation Oncology at [address] [address] 03/04/2024 9:45 AM EST Scheduled View Only Radiation Oncology at [address] [address] 03/05/2024 9:30 AM EST Scheduled View Only Radiation Oncology at [address] [address] 03/06/2024 8:30 AM EST Infusion Hematology Oncology at [address] [address] 03/06/2024 9:15 AM EST Scheduled View Only Radiation Oncology at [address] [address] 03/09/2024 9:15 AM EST Scheduled View Only Radiation Oncology at [address] [address] 03/10/2024 9:15 AM EST Scheduled View Only Radiation Oncology at [address] [address] 03/11/2024 9:15 AM EST Scheduled View Only Radiation Oncology at [address] [address] 03/12/2024 9:15 AM EST Scheduled View Only Radiation Oncology at [address] [address] 03/13/2024 9:15 AM EST Scheduled View Only Radiation Oncology at [address] [address] 03/16/2024 9:15 AM EST Scheduled View Only Radiation Oncology at [address] [address] 03/17/2024 9:15 AM EST Scheduled View Only Radiation Oncology at [address] [address] 03/18/2024 9:15 AM EST Scheduled View Only Radiation Oncology at [address] [address] 03/19/2024 9:15 AM EST Scheduled View Only Radiation Oncology at [address] [address] 03/20/2024 9:15 AM EST Scheduled View Only Radiation Oncology at [address] [address] 03/23/2024 9:15 AM EST Scheduled View Only Radiation Oncology at [address] [address] 03/24/2024 9:30 AM EST Scheduled View Only Radiation Oncology at [address] [address] documented as of this encounter Visit Diagnoses Diagnosis Malignant neoplasm of prostate documented in this encounter Administered Medications Inactive Administered Medications - up to 3 most recent administrations Medication Order MAR Action Action Date Dose Rate Site leuprolide (Lupron Depot) 7.5 mg intramuscular syringe kit 7.5 mg 7.5 mg, Intramuscular, ONCE, 1 dose, On Sat02/07/24 at 1430, Routine, This agent is restricted to outpatient use. Is this drug being given as an outpatient? Yes Given 02/07/2024 2:18 PM EST 7.5 mg Right Gluteal documented in this encounter Care Teams Sole Stainer Relationship Specialty Start Date End Date Jeff Pfeiffer MD [address] [place] [address] PCP - General Family Medicine 03/12/23 documented as of this encounter
--- OUTSIDE RECORDS SUMMARY | 2024-02-27 10:45 | XMS_ITS | Encounter Summary ---
Author Organization [facility] Address [facility] [place] [address] Care Team Providers Care Motors And Controls Tester Name Role Phone Jeff Pfeiffer MD Primary Care Provider [phone] Reason for Visit * Reason Comments Chemotherapy Lupron * Treatment/Therapy Plan Authorization (Routine) - Authorized Specialty Diagnoses / Procedures Referred By Neil keller Referred To Contact Hematology and Oncology Diagnoses Malignant neoplasm of prostate Leroy Berumen MD [address] [place] [address] [place] [address] St Hem Onc Infusion [address] [place] [phone] Referral ID Status Reason Start Date Expiration Date V isits Requested Visits Authorized [id number] Authorized 07/12/2023 07/11/2024 99 101 Encounter Details Date Type Department Care Team (Late st Contact Info) Description 01/10/2024 8:30 AM EST Infusion Hematology Oncology at [address] [address] Malignant neoplasm of prostate Social History Tobacco Use Types Packs/Day Years Used Date Smoking Tobacco: Former Cigarettes Q uit: 1989 Smokeless Tobacco: Never Alcohol Use Standard Drinks/Week Comments Yes 15 (1 standard drink = 0.6 oz pu re alcohol) [facility] Utilities Answer Date Recorded In [...] place to sleep or slept in a long term (including now)? No 06/19/2023 Sex and Gender Information Value Date Recorded Sex Assigned at Not on file Gender Identity Not on file Sexual Orientation Not on file Travel History Travel Start Travel End [facility] 12/28/2023 01/27/2024 documented as of this encounter Last Filed Vital Signs Vital Sign Reading Time Taken Comments Blood Pressure 131/78 01/10/2024 8:35 AM EST Pulse 77 01/10/2024 8:35 AM EST Temperature 36.8 ??C (98.2 ??F) 01/10/2024 8:35 AM ES T Respiratory Rate 18 01/10/2024 8:35 AM EST Oxygen Saturation 100% 01/10/2024 8:35 AM EST Inhaled Oxygen Concentration - - Weight 73.6 kg (162 lb 4.1 oz) 01/10/2024 8:35 A M EST Height 177.8 cm (5' 10) 01/10/2024 8:35 AM EST Body Mass Index 23.28 01/10/2024 8:35 AM EST documented in this encounter Progress Notes * Leesa Randall, RN - 01/10/2024 8:30 AM EST Infusion Note Diagnosis:Prostate Cancer Treatment: Lupron Injection Lupron injected in left gluteal. Patient instructed on side effects of Lupron. Patient states understanding of teaching, Patient aware to call clinic with any questions or concerns. Plan: Return to clinic as scheduled documented in this encounter Plan of Treatment Upcoming Encounters Date Type Department Care Team (Late st Contact Info) Description 02/28/2024 9:15 AM EST Scheduled View Only Radiation Oncology at [address] [address] 02/28/2024 9:25 AM EST Office Visit Radiation Oncology at [address] [address] Leroy Berumen MD [address] [place] [address] [place] [address] 03/02/2024 9:30 AM EST Scheduled View Only Radiation Oncology at [address] [address] 03/03/2024 9:15 AM EST Scheduled View Only Radiation Oncology at [address] [address] 03/04/2024 9:45 AM EST Scheduled View Only Radiation Oncology at [address] [address] 03/05/2024 9:30 AM EST Scheduled View Only Radiation Oncology at [address] [address] 03/06/2024 8:30 AM EST Infusion Hematology Oncology at [address] [address] 03/06/2024 9:15 AM EST Scheduled View Only Radiation Oncology at [address] [address] 03/09/2024 9:15 AM EST Scheduled View Only Radiation Oncology at [address] [address] 03/10/2024 9:15 AM EST Scheduled View Only Radiation Oncology at [address] [address] 03/11/2024 9:15 AM EST Scheduled View Only Radiation Oncology at [address] [address] 03/12/2024 9:15 AM EST Scheduled View Only Radiation Oncology at [address] [address] 03/13/2024 9:15 AM EST Scheduled View Only Radiation Oncology at [address] [address] 03/16/2024 9:15 AM EST Scheduled View Only Radiation Oncology at [address] [address] 03/17/2024 9:15 AM EST Scheduled View Only Radiation Oncology at [address] [address] 03/18/2024 9:15 AM EST Scheduled View Only Radiation Oncology at [address] [address] 03/19/2024 9:15 AM EST Scheduled View Only Radiation Oncology at [address] [address] 03/20/2024 9:15 AM EST Scheduled View Only Radiation Oncology at [address] [address] 03/23/2024 9:15 AM EST Scheduled View Only Radiation Oncology at [address] [address] 03/24/2024 9:30 AM EST Scheduled View Only Radiation Oncology at [address] [address] documented as of this encounter Visit Diagnoses Diagnosis Malignant neoplasm of prostate documented in this encounter Administered Medications Inactive Administered Medications - up to 3 most recent administrations Medication Order MAR Action Action Date Dose Rate Site leuprolide (Lupron Depot) 7.5 mg intramuscular syringe kit 7.5 mg 7.5 mg, Intramuscular, ONCE, 1 dose, On Sat01/10/24 at 0900, Routine, This agent is restricted to outpatient use. Is this drug being given as an outpatient? Yes Given 01/10/2024 8:53 AM EST 7.5 mg Left Gluteal documented in this encounter Care Teams Motors And Controls Tester Relationship Specialty Start Date End Date Jeff Pfeiffer MD [address] [place] [address] PCP - General Family Medicine 03/12/23 documented as of this encounter
--- OUTSIDE RECORDS SUMMARY | 2024-02-27 10:45 | XMS_ITS | Encounter Summary ---
Author Organization [facility] Address [facility] [place] [address] Care Team Providers Care Marketing Traffic Coordinator Name Role Phone Jeff Pfeiffer MD Primary Care Provider Reason for Referral * Diagnostic Test (Routine) - Closed Specialty Diagnoses / Procedures Referred By Contac t Referred To Contact Radiology Diagnoses Malignant neoplasm of prostate Procedures MRI Pelvis wo (Prostate) MRI Pelvis wwo (Prostate) Teetee Han MD [facility] [place] [address] [place] [address] Referral ID Status Reason Start Date Expiration Date V isits Requested Visits Authorized [id number] Closed Specialty Service Requested 10/18/2023 04/17/2025 1 1 Reason for Visit * Diagnostic Test (Routine) - Closed Specialty Diagnoses / Procedures Referred By [facility] Referred To Contact Radiology Diagnoses Malignant neoplasm of prostate Procedures MRI Pelvis wo (Prostate) MRI Pelvis wwo (Prostate) Teetee Han MD [facility] [place] [address] [place] [address] Referral ID Status Reason Start Date Expiration Date V isits Requested Visits Authorized [id number] Closed Specialty Service Requested 10/18/2023 04/17/2025 1 1 Encounter Details Date Type Department Care Team (Latest Contact Info) Description 01/27/2024 7:50 AM EST - 01/27/2024 11:59 PM EST Hospital Encounter MRI at [facility] [place] [address] Leroy Berumen MD [address] [place] [address] [place] [address] Malignant neoplasm of prostate Discharge Disposition: Home Social History Tobacco Use Types Packs/Day Years Used Date Smoking Tobacco: Former Cigarettes Q uit: 1989 Smokeless Tobacco: Never Alcohol Use Standard Drinks/Week Comments Yes 15 (1 standard drink = 0.6 oz pu re alcohol) [facility] Utilities Answer Date Recorded In the [...] file Travel History Travel Start Travel End [facility] 12/28/2023 01/27/2024 documented as of this encounter Medications at Time of Discharge Medication Sig Dispensed Refills Start Date End Date atorvastatin (Lipitor) 40 mg tablet Take 20 mg by mouth Daily @ 0600. cholecalciferol (Vitamin D3) 1,000 unit tablet Take 1,000 Units by mouth daily. 05/22/2019 tamsulosin (Flomax) 0.4 mg capsule Take 1 capsule by mouth nightly. Taking 0.8 mg ubiquinone (Ubiquinone) 100 mg capsule Take 125 mg by mouth daily. 05/22/2019 acyclovir (Zovirax) 400 mg tablet Take 400 mg by mouth as needed (coldsores). 03/20/2023 dexAMETHasone (Decadron) 2 mg tabletIndications:Malig nant neoplasm of prostate 2 mg twice a day for 3 days (Start day of procedure, once you get back home after procedure, take with food) then, 2 mg once a day for 3 days. 9 tablet 01/01/2024 02/14/2024 LORazepam (Ativan) 1 mg tabletIndications:Maljennifer nant neoplasm of prostate Take 1 tablet 1 hour prior to the procedure and bring the second tablet with you to the procedure incase you need a repeat dose. 2 tablet 01/01/2024 02/14/2024 levoFLOXacin (Levaquin) 500 mg tabletIndications:Maljennifer nant neoplasm of prostate 1 tablet 1 hour before the procedure 1 tablet 01/01/2024 02/14/2024 documented as of this encounter Plan of Treatment Upcoming Encounters Date Type Department Care Team (Late st Contact Info) Description 02/28/2024 9:15 AM EST Scheduled View Only Radiation Oncology at [address] [phone] 02/28/2024 9:25 AM EST Office Visit Radiation Oncology at [address] [phone] Leroy Berumen MD [address] [place] [address] DR RADIATION ONCOLOGY [place], [place] [id number] 03/02/2024 9:30 AM EST Scheduled View Only Radiation Oncology at [address] [place] [address] 03/03/2024 9:15 AM EST Scheduled View Only Radiation Oncology at [address] [place] [address] 03/04/2024 9:45 AM EST Scheduled View Only Radiation Oncology at [address] [place] [address] 03/05/2024 9:30 AM EST Scheduled View Only Radiation Oncology at [address] [place] [address] 03/06/2024 8:30 AM EST Infusion Hematology Oncology at [address] [place] [address] 03/06/2024 9:15 AM EST Scheduled View Only Radiation Oncology at [address] [place] [address] 03/09/2024 9:15 AM EST Scheduled View Only Radiation Oncology at [address] [place] [address] 03/10/2024 9:15 AM EST Scheduled View Only Radiation Oncology at [address] [place] [address] 03/11/2024 9:15 AM EST Scheduled View Only Radiation Oncology at [address] [place] [address] 03/12/2024 9:15 AM EST Scheduled View Only Radiation Oncology at [address] [address] 03/13/2024 9:15 AM EST Scheduled View Only Radiation Oncology at [address] [place] [address] 03/16/2024 9:15 AM EST Scheduled View Only Radiation Oncology at [address] [place] [address] 03/17/2024 9:15 AM EST Scheduled View Only Radiation Oncology at [address] [address] 03/18/2024 9:15 AM EST Scheduled View Only Radiation Oncology at [address] [address] 03/19/2024 9:15 AM EST Scheduled View Only Radiation Oncology at [address] [address] 03/20/2024 9:15 AM EST Scheduled View Only Radiation Oncology at [address] [address] 03/23/2024 9:15 AM EST Scheduled View Only Radiation Oncology at [address] [address] 03/24/2024 9:30 AM EST Scheduled View Only Radiation Oncology at [address] [address] documented as of this encounter Procedures Procedure Name Priority Date/Time Associated Diagnosis Comments MRI PELVIS WO (PROSTATE) Routine 01/27/2024 9:09 AM EST Malignant neoplasm of prostate documented in this encounter Results * MRI Pelvis wo (Prostate) (01/27/2024 9:09 AM EST) WORKSTATION ID [id number] DH RAD Anatomical Region Laterality Modality Pelvis Magnetic Resonan ce Impressions 01/27/2024 1:25 PM EST Limited MRI for radiation treatment planning. Thank you for letting us participate in the care of this patient. ??If you are a health care provider and have any questions regarding this report, please contact the number below. ??For patients who have questions please contact the health acute care nurse practitioner that requested your imaging first. ? Electronically signed by: Jann Pacheco MD, [facility] ([phone]), at 01/27/2024 1:25 PM Narrative 01/27/2024 1:25 [...] patients who have questions please contactthe health acute care nurse practitioner that requested your imaging first. Electronically signed by: Jann Pacheco MD, [facility]([phone]), at 01/27/2024 1:25 PM Leroy Berumen MD [employer] MRI ORDERABLES documented in this encounter Visit Diagnoses Diagnosis Malignant neoplasm of prostate documented in this encounter Care Teams Marketing Traffic Coordinator Relationship Specialty Start Date End Date Jeff Pfeiffer MD [address] [address] PCP - General Family Medicine 03/12/23 documented as of this encounter
--- OUTSIDE RECORDS SUMMARY | 2024-02-27 10:45 | XMS_ITS | Encounter Summary ---
Author Organization [facility] Address [facility] [place] [address] Care Team Providers Care Certified Ophthalmic Technologist Name Role Phone Jeff Pfeiffer MD Primary Care Provider [phone] Encounter Details Date Type Department Care Team (Latest Contact Info) Description 02/26/2024 Travel Social History Tobacco Use Types Packs/Day Years Used Date Smoking Tobacco: Former Cigarettes Q uit: 1989 Smokeless Tobacco: Never Alcohol Use Standard Drinks/Week Comments Yes 15 (1 standard drink = 0.6 oz pu re alcohol) [facility] Utilities Answer Date Recorded In [...] EST Scheduled View Only Radiation Oncology at [address] [phone] 02/28/2024 9:25 AM EST Office Visit Radiation Oncology at [address] [phone] Leroy Berumen MD [address] [place] [address] [place] [address] 03/02/2024 9:30 AM EST Scheduled View Only Radiation Oncology at [address] [phone] 03/03/2024 9:15 AM EST Scheduled View Only Radiation Oncology at [address] [phone] 03/04/2024 9:45 AM EST Scheduled View Only Radiation Oncology at [address] [address] 03/05/2024 9:30 AM EST Scheduled View Only Radiation Oncology at [address] [address] 03/06/2024 8:30 AM EST Infusion Hematology Oncology at [address] [address] 03/06/2024 9:15 AM EST Scheduled View Only Radiation Oncology at [address] [address] 03/09/2024 9:15 AM EST Scheduled View Only Radiation Oncology at [address] [address] 03/10/2024 9:15 AM EST Scheduled View Only Radiation Oncology at [address] [address] 03/11/2024 9:15 AM EST Scheduled View Only Radiation Oncology at [address] [address] 03/12/2024 9:15 AM EST Scheduled View Only Radiation Oncology at [address] [address] 03/13/2024 9:15 AM EST Scheduled View Only Radiation Oncology at [address] [address] 03/16/2024 9:15 AM EST Scheduled View Only Radiation Oncology at [address] [address] 03/17/2024 9:15 AM EST Scheduled View Only Radiation Oncology at [address] [address] 03/18/2024 9:15 AM EST Scheduled View Only Radiation Oncology at [address] [address] 03/19/2024 9:15 AM EST Scheduled View Only Radiation Oncology at [address] [address] 03/20/2024 9:15 AM EST Scheduled View Only Radiation Oncology at [address] [address] 03/23/2024 9:15 AM EST Scheduled View Only Radiation Oncology at [address] [address] 03/24/2024 9:30 AM EST Scheduled View Only Radiation Oncology at [address] [address] documented as of this encounter Visit Diagnoses Not on filedocumented in this encounter Care Teams Certified Ophthalmic Technologist Relationship Specialty Start Date End Date Jeff Pfeiffer MD [address] [place] [address] PCP - General Family Medicine 03/12/23 documented as of this encounter
--- OUTSIDE RECORDS SUMMARY | 2024-02-27 10:45 | XMS_ITS | Encounter Summary ---
Author Organization [facility] Address [facility] [place] [address] Care Team Providers Care Advertising Agent Name Role Phone Jeff Pfeiffer MD Primary Care Provider [phone] Encounter Details Date Type Department Care Team (Latest Contact Info) Description 02/24/2024 Travel Social History Tobacco Use Types Packs/Day Years Used Date Smoking Tobacco: Former Cigarettes Q uit: 1989 Smokeless Tobacco: Never Alcohol Use Standard Drinks/Week Comments Yes 15 (1 standard drink = 0.6 oz pu re alcohol) [facility] Utilities Answer Date Recorded In the past [...] Travel History Travel Start Travel End [facility] 12/28/2023 01/27/2024 documented as of this encounter Plan of Treatment Upcoming Encounters Date Type Department Care Team (Late st Contact Info) Description 02/28/2024 9:15 AM EST Scheduled View Only Radiation Oncology at [address] [phone] 02/28/2024 9:25 AM EST Office Visit Radiation Oncology at [address] [address] Leroy Berumen MD [address] [place] [address] [place] [address] 03/02/2024 9:30 AM EST Scheduled View Only Radiation Oncology at [address] [phone] 03/03/2024 9:15 AM EST Scheduled View Only Radiation Oncology at [address] [address] 03/04/2024 9:45 AM EST Scheduled View Only Radiation Oncology at [address] [address] 03/05/2024 9:30 AM EST Scheduled View Only Radiation Oncology at [address] [address] 03/06/2024 8:30 AM EST Infusion Hematology Oncology at [address] [address] 03/06/2024 9:15 AM EST Scheduled View Only Radiation Oncology at [address] [address] 03/09/2024 9:15 AM EST Scheduled View Only Radiation Oncology at [address] [address] 03/10/2024 9:15 AM EST Scheduled View Only Radiation Oncology at [address] [address] 03/11/2024 9:15 AM EST Scheduled View Only Radiation Oncology at [address] [address] 03/12/2024 9:15 AM EST Scheduled View Only Radiation Oncology at [address] [address] 03/13/2024 9:15 AM EST Scheduled View Only Radiation Oncology at [address] [address] 03/16/2024 9:15 AM EST Scheduled View Only Radiation Oncology at [address] [address] 03/17/2024 9:15 AM EST Scheduled View Only Radiation Oncology at [address] [address] 03/18/2024 9:15 AM EST Scheduled View Only Radiation Oncology at [address] [address] 03/19/2024 9:15 AM EST Scheduled View Only Radiation Oncology at [address] [address] 03/20/2024 9:15 AM EST Scheduled View Only Radiation Oncology at [address] [address] 03/23/2024 9:15 AM EST Scheduled View Only Radiation Oncology at [address] [phone] 03/24/2024 9:30 AM EST Scheduled View Only Radiation Oncology at [address] [address] documented as of this encounter Visit Diagnoses Not on filedocumented in this encounter Care Teams Advertising Agent Relationship Specialty Start Date End Date Jeff Pfeiffer MD [address] [place] [address] PCP - General Family Medicine 03/12/23 documented as of this encounter
--- OUTSIDE RECORDS SUMMARY | 2024-02-27 10:45 | XMS_ITS | Encounter Summary ---
Author Organization Count Includes [facility] Address [facility] [place] [address] Care Team Providers Care Sports Marketing Coordinator Name Role Phone Jeff Pfeiffer MD Primary Care Provider [phone] Encounter Details Date Type Department Care Team (Late st Contact Info) Description 01/08/2024 9:00 AM EST Procedure visit Radiation Oncology at [address] [address] Leroy Berumen MD [address] [place] [address] [place] [address] Malignant neoplasm of prostate Social History Tobacco Use Types Packs/Day Years Used Date Smoking Tobacco: Former Cigarettes Q uit: 1989 Smokeless Tobacco: Never Alcohol Use Standard Drinks/Week Comments Yes 15 (1 standard drink = 0.6 oz pu re alcohol) [facility] Utilities Answer Date Recorded In the past 12 months has th e [employer], gas, oil, or water [employer] threatened to shut off services in your [...] place to sleep or slept in a assisted (including now)? No 06/19/2023 Sex and Gender Information Value Date Recorded Sex Assigned at Not on file Gender Identity Not on file Sexual Orientation Not on file Travel History Travel Start Travel End [facility] 12/28/2023 01/27/2024 documented as of this encounter Last Filed Vital Signs Vital Sign Reading Time Taken Comments Blood Pressure 124/65 01/08/2024 10:31 AM EST Pulse 73 01/08/2024 10:31 AM EST Temperature 36.4 ??C (97.6 ??F) 01/08/2024 10:[address] Respiratory Rate 16 01/08/2024 10:31 AM EST Oxygen Saturation 100% 01/08/2024 10:31 AM EST Inhaled Oxygen Concentration - - Weight - - Height - - Body Mass Index - - documented in this encounter Patient Instructions * Patient Instructions* Genia Patrick RN - 01/08/2024 9:00 AM EST After Your Gold Coil Implantation Procedure: Do not lift anything heavier then a gallon of milk. You may resume normal activity in 24 hours. You may resume intercourse in one week. You may take extra-strength Tylenol for any discomfort. Avoid NSAID's such as ibuprofen and aspirinfor 48 hours after procedure as these medications could cause bleeding. Take your dexamethasone as directed. This medication helps to control swelling. Do not take on an empty stomach. Do not take later then 2-3 pm as this can cause insomnia/ keep you awake. Call us if you notice any unusual swelling, pain, bleeding or if you have any other concerns. A MRI appointment will be at [facility] Radiology on: [ Date: 01/27/24 ] [ Arrive at: 0810 ] Please remain NPO (nothing by mouth) 4 hours prior to your appointment. You may eat and drink after your MRI is complete. A CT Simulation appointment will be at [_] [facility] [X_] [facility] on: [ Date: 01/27/24 ] [ Arrive at: 0930 ] Arrive for your appointment with a comfortably full bladder. How to reach us: [phone] After Hours/Weekends- Please ask for the Radiation Oncologist to be paged documented in this encounter Progress Notes * Genia Patrick RN - 01/08/2024 9:00 AM EST Radiation Oncology Nurse Note [facility], [place] Radiation Oncology Procedure Nursing Note Procedure: Prostate fiducial by Dr Leroy Berumen Fusion Coil Lot Numbers: [ [id number] ] Time of patient arrival to clinic: 824 See flowsheet for all vital signs and medication list updated info. Pre procedure questions: [ Yes ] If Applicable: He confirms taking lorazepam 1mg po at (time): 0800 He comes to clinic accompanied by a dumpcart driver. [ Yes ] reviewed allergies. Specifically confirmed that he is not allergic to contrast dye. ( for Space Oar w/contrast) [ N/A ] if Applicable: He confirms holding blood thinner as directed. [ Yes ] He confirms taking Levaquin( antibiotic) this morning at , Time: 0800 [ Yes ] He administered fleets enema as directed; last night and this AM, with good results. [ No ] He confirms eating breakfast or at least a small meal prior to procedure to avoid low blood sugar. - a cup of black coffee Patient states all his questions are answered and he is ready to proceed. Procedure Time out/start time: 944 See timeout flow sheet for details. Assessment: Patient tolerated procedure well with no complaint of pain. Time procedure ended: 955 After procedure,he was assisted to stretcher and transported to stretcher/emergency equipment bay for further monitoring. Time: 1025 assisted to recliner. He denied lightheadedness. Vitals stable. Time: 1038 dressed self with supervision Gait steady. >> See AVS for printed instructions which were reviewed with him. He has the [facility] phone number and verbalized understanding to ask for the tape control skin or spar mill operator radiation oncologist if he needs to call after clinic hours. [ Yes ] If applicable: He was reminded to not drive home due to Lorazepam. Food Equipment Service Technician: Friend Time of discharge: 1042 vital signs stable,and gait steady. * Leroy Berumen MD - 01/08/2024 9:00 AM EST Identification: Rolando Brown is a 68 y.o. year old gentleman with prostate cancer, who has consentedfor external beam radiotherapy. Procedure: Gold coil fiducial marker placement within the prostate for radiation localization during therapy. Physician: Leroy Berumen MD Anesthesia: Local lidocaine with bicarbonate Description of Procedure: Rolando Brown was placed in the lithotomy position. A transrectal ultrasound probe was placed within the rectum and stabilized using the placement positioning system. The perineum was prepped, anesthetized with subcutaneous lidocaine, and draped with the graticule fixed in position on the ultrasound stabilizer. A needle was then placed trans-perineally into the right lobe of the prostate under ultrasound guidance with the graticule serving for stabilization and position verification. The ultrasound was used to monitor the advancement of the needle, and lidocaine was locally applied as the needle was advanced. Once it was properly positioned, a 0.5 cm length of gold coil was placed within the r ight lobe, then repeated for a 2nd coil and the needle was removed. This procedure was repeated within the left prostate for a single coil. Following placement of 3 coils, the ultrasound probe and the stabilizer system were removed. The patient was then discharged. Complications: None Estimated Blood Loss: scant Disposition: Rolando Brown tolerated the treatment well. He described mild discomfort during the course of the procedure, at a level of 2/10, primarily related to placement of the rectal probe, and also with needleinsertion through the perineum. He will return shortly for CT-based simulation and treatment planning, and a referral has been placed for the patient to undergo MRI of the prostate at [facility] documented in this encounter Plan of Treatment Upcoming Encounters Date Type Department Care Team (Late st Contact Info) Description 02/28/2024 9:15 AM EST Scheduled View Only Radiation Oncology at [address] [phone] 02/28/2024 9:25 AM EST Office Visit Radiation Oncology at [address] [phone] Leroy Berumen MD [address] [place] [address] [place] [address] 03/02/2024 9:30 AM EST Scheduled View Only Radiation Oncology at [address] [phone] 03/03/2024 9:15 AM EST Scheduled View Only Radiation Oncology at [address] [phone] 03/04/2024 9:45 AM EST Scheduled View Only Radiation Oncology at [address] [address] 03/05/2024 9:30 AM EST Scheduled View Only Radiation Oncology at [address] [phone] 03/06/2024 8:30 AM EST Infusion Hematology Oncology at [address] [phone] 03/06/2024 9:15 AM EST Scheduled View Only Radiation Oncology at [address] [phone] 03/09/2024 9:15 AM EST Scheduled View Only Radiation Oncology at [address] [phone] 03/10/2024 9:15 AM EST Scheduled View Only Radiation Oncology at [address] [address] 03/11/2024 9:15 AM EST Scheduled View Only Radiation Oncology at [address] [address] 03/12/2024 9:15 AM EST Scheduled View Only Radiation Oncology at [address] [address] 03/13/2024 9:15 AM EST Scheduled View Only Radiation Oncology at [address] [address] 03/16/2024 9:15 AM EST Scheduled View Only Radiation Oncology at [address] [address] 03/17/2024 9:15 AM EST Scheduled View Only Radiation Oncology at [address] [address] 03/18/2024 9:15 AM EST Scheduled View Only Radiation Oncology at [address] [address] 03/19/2024 9:15 AM EST Scheduled View Only Radiation Oncology at [address] [address] 03/20/2024 9:15 AM EST Scheduled View Only Radiation Oncology at [address] [phone] 03/23/2024 9:15 AM EST Scheduled View Only Radiation Oncology at [address] [address] 03/24/2024 9:30 AM EST Scheduled View Only Radiation Oncology at [address] [phone] documented as of this encounter Visit Diagnoses Diagnosis Malignant neoplasm of prostate documented in this encounter Care Teams Sports Marketing Coordinator Relationship Specialty Start Date End Date Jeff Pfeiffer MD [address] [address] PCP - General Family Medicine 03/12/23 documented as of this encounter
--- OUTSIDE RECORDS SUMMARY | 2024-02-27 10:45 | XMS_ITS | Encounter Summary ---
Author Organization [facility] Address [facility] [place] [address] Care Team Providers Care Biomass Power Plant Manager Name Role Phone Jeff Pfeiffer MD Primary Care Provider [phone] Encounter Details Date Type Department Care Team (Late st Contact Info) Description 02/21/2024 10:10 AM EST Office Visit Radiation Oncology at [address] [address] Jacob Cr MD [facility] [place] [address] Malignant neoplasm of prostate Social History Tobacco Use Types Packs/Day Years Used Date Smoking Tobacco: Former Cigarettes Q uit: 1989 Smokeless Tobacco: Never Alcohol Use Standard Drinks/Week Comments Yes 15 (1 standard drink = 0.6 oz pu re alcohol) [place] Utilities Answer Date Recorded In the past 12 months has th e [employer], gas, oil, or water [employer] threatened to shut off services in your [...] file Travel History Travel Start Travel End [facility] 12/28/2023 01/27/2024 documented as of this [...] documented in this encounter Progress Notes * Jacob Cr MD - 02/21/2024 10:10 AM EST Images from the original note were not included. f [facility] Medicine Radiation Oncology Radiation Oncology On-treatment [...] 50.4 Gy in 28 fractions Current Dose: 15 Gy in 6 fractions Interval Clinical Course General No changes since last seen. GI No diarrhea. May be urinating more but is drinking a lot more fluid. Nocturia 3-4 x/nt at baseline but at least 4x now. Baseline IPSS history is listed below. 06/19/2023 [...] tablet Take 1,000 Units by mouth daily. tamsulosin (Flomax) 0.4 mg capsule Take 1 capsule by mouth nightly. Taking 0.8 mg ubiquinone (Ubiquinone) 100 mg capsule Take 125 mg by mouth daily. acyclovir (Zovirax) 400 mg tablet Take 400 mg by mouth as needed (coldsores). Exam Patient Vitals for the past 24 hrs: Temp Pulse Resp BP SpO2 02/21/24 1043 36.3 ??C (97.3 ??F) 72 16 155/78 100 % General: Appears well, in no distress Imaging/Labs Interval setup imaging has been checked and approved. See [employer] for details. 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 Continue as planned. More nocturia. Already on tamsulosin 0.8 mg daily. Have asked him to try Aleve b.I.d. to see if gets any relief with that. Next / final Lupron due 03/06 Followup: Return to clinic next week for on treatment check. No orders of the defined types were placed in this encounter. National Cancer [place] (NCI) [facility] [employer] Commission on Cancer ([employer] [place]) Accredited Cancer Program [employer] (ACR) Accredited Radiation Oncology Program documented in this encounter Plan of Treatment Upcoming Encounters Date Type Department Care Team (Late st Contact Info) Description 02/28/2024 9:15 AM EST Scheduled View Only Radiation Oncology at [address] [phone] 02/28/2024 9:25 AM EST Office Visit Radiation Oncology at [address] [phone] Leroy Berumen MD [address] [place] [address] [place] [address] 03/02/2024 9:30 AM EST Scheduled View Only Radiation Oncology at [address] [phone] 03/03/2024 9:15 AM EST Scheduled View Only Radiation Oncology at [address] [phone] 03/04/2024 9:45 AM EST Scheduled View Only Radiation Oncology at [address] [phone] 03/05/2024 9:30 AM EST Scheduled View Only Radiation Oncology at [address] [phone] 03/06/2024 8:30 AM EST Infusion Hematology Oncology at [address] [phone] 03/06/2024 9:15 AM EST Scheduled View Only Radiation Oncology at [address] [place] [address] 03/09/2024 9:15 AM EST Scheduled View Only Radiation Oncology at [address] [phone] 03/10/2024 9:15 AM EST Scheduled View Only Radiation Oncology at [address] [address] 03/11/2024 9:15 AM EST Scheduled View Only Radiation Oncology at [address] [phone] 03/12/2024 9:15 AM EST Scheduled View Only Radiation Oncology at [address] [address] 03/13/2024 9:15 AM EST Scheduled View Only Radiation Oncology at [address] [phone] 03/16/2024 9:15 AM EST Scheduled View Only Radiation Oncology at [address] [phone] 03/17/2024 9:15 AM EST Scheduled View Only Radiation Oncology at [address] [address] 03/18/2024 9:15 AM EST Scheduled View Only Radiation Oncology at [address] [address] 03/19/2024 9:15 AM EST Scheduled View Only Radiation Oncology at [address] [address] 03/20/2024 9:15 AM EST Scheduled View Only Radiation Oncology at [address] [phone] 03/23/2024 9:15 AM EST Scheduled View Only Radiation Oncology at [address] [phone] 03/24/2024 9:30 AM EST Scheduled View Only Radiation Oncology at [address] [phone] documented as of this encounter Visit Diagnoses Diagnosis Malignant neoplasm of prostate documented in this encounter Care Teams Biomass Power Plant Manager Relationship Specialty Start Date End Date Jeff Pfeiffer MD [address] [place] [address] PCP - General Family Medicine 03/12/23 documented as of this encounter
--- OUTSIDE RECORDS SUMMARY | 2024-02-27 10:45 | XMS_ITS ---
Author Organization [facility] [place] [address] Care Team Providers Care Director Of Compliance Name Role Phone Jeff Pfeiffer MD Primary Care Provider [phone] Active Problems Problem Noted Date Diagnosed Date Malignant neoplasm of prostate 06/14/2023 Cancer Staging:Clinical:Stage IIB(cT1c, cN0, cM0, PSA: 8.6, Grade Group: 2) - Signed by Leroy Berumen MD on 06/14/2023 Current Oncology Plans Leuprolide (Lupron Depot) Injection ([facility] [place], [facility], [facility], [facility], [facility]) Adult* Plan Start Date:10/18/2023 Plan Provider:Leroy Berumen MD Linked Problems Malignant neoplasm of prosta te Treatment Medications No medications scheduled. Past Plans Therapy Plan 1 Plan Name Start Date Discontinue Date Treatment Medications Discontinue Reason Plan Provider Degarelix (Firmagon) Injection ([facility], [facility], [facility]) New Patient Induction 07/12/2023 10/17/2023 No medications scheduled. Entered In Error Leroy Berumen MD Radiation Treatments * No radiation treatments are documented for this patient in [facility]. Treatments may have been administered in another system.
--- OUTSIDE RECORDS SUMMARY | 2024-02-27 10:45 | XMS_ITS | Encounter Summary ---
Author Organization [facility] Address [facility] [place] [address] Care Team Providers Care Transportation Analyst Name Role Phone Jeff Pfeiffer MD Primary Care Provider [phone] Encounter Details Date Type Department Care Team (Latest Contact Info) Description 02/13/2024 Travel Social History Tobacco Use Types Packs/Day Years Used Date Smoking Tobacco: Former Cigarettes Q uit: 1989 Smokeless Tobacco: Never Alcohol Use Standard Drinks/Week Comments Yes 15 (1 standard drink = 0.6 oz pu re alcohol) [facility] Utilities Answer Date Recorded In the [...] Travel History Travel Start Travel End [facility] 12/28/2023 01/27/2024 documented as of this encounter Plan of Treatment Upcoming Encounters Date Type Department Care Team (Late st Contact Info) Description 02/28/2024 9:15 AM EST Scheduled View Only Radiation Oncology at [address] [phone] 02/28/2024 9:25 AM EST Office Visit Radiation Oncology at [address] [phone] Leroy Berumen MD [address] [place] [address] [place] [address] 03/02/2024 9:30 AM EST Scheduled View Only Radiation Oncology at [address] [address] 03/03/2024 9:15 AM EST Scheduled View Only Radiation Oncology at [address] [phone] 03/04/2024 9:45 AM EST Scheduled View Only Radiation Oncology at [address] [phone] 03/05/2024 9:30 AM EST Scheduled View Only Radiation Oncology at [address] [phone] 03/06/2024 8:30 AM EST Infusion Hematology Oncology at [address] [address] 03/06/2024 9:15 AM EST Scheduled View Only Radiation Oncology at [address] [phone] 03/09/2024 9:15 AM EST Scheduled View Only Radiation Oncology at [address] [phone] 03/10/2024 9:15 AM EST Scheduled View Only Radiation Oncology at [address] [address] 03/11/2024 9:15 AM EST Scheduled View Only Radiation Oncology at [address] [phone] 03/12/2024 9:15 AM EST Scheduled View Only Radiation Oncology at [address] [address] 03/13/2024 9:15 AM EST Scheduled View Only Radiation Oncology at [address] [phone] 03/16/2024 9:15 AM EST Scheduled View Only Radiation Oncology at [address] [address] 03/17/2024 9:15 AM EST Scheduled View Only Radiation Oncology at [address] [address] 03/18/2024 9:15 AM EST Scheduled View Only Radiation Oncology at [address] [phone] 03/19/2024 9:15 AM EST Scheduled View Only Radiation Oncology at [address] [phone] 03/20/2024 9:15 AM EST Scheduled View Only Radiation Oncology at [address] [phone] 03/23/2024 9:15 AM EST Scheduled View Only Radiation Oncology at [address] [phone] 03/24/2024 9:30 AM EST Scheduled View Only Radiation Oncology at [address] [phone] documented as of this encounter Visit Diagnoses Not on filedocumented in this encounter Care Teams Transportation Analyst Relationship Specialty Start Date End Date Jeff Pfeiffer MD [address] [place] [address] PCP - General Family Medicine 03/12/23 documented as of this encounter
--- OUTSIDE RECORDS SUMMARY | 2024-02-27 10:45 | XMS_ITS | Encounter Summary ---
Author Organization [facility] Address [facility] [place] [address] Care Team Providers Care Clinical Trials Manager Name Role Phone Jeff Pfeiffer MD Primary Care Provider [phone] Encounter Details Date Type Department Care Team (Latest Contact Info) Description 01/27/2024 Travel Social History Tobacco Use Types Packs/Day Years Used Date Smoking Tobacco: Former Cigarettes Q uit: 1989 Smokeless Tobacco: Never Alcohol Use Standard Drinks/Week Comments Yes 15 (1 standard drink = 0.6 oz pu re alcohol) [facility] Utilities Answer Date Recorded In [...] place to sleep or slept in a long-term (including now)? No 06/19/2023 Sex and Gender Information Value Date Recorded Sex Assigned at Not on file Gender Identity Not on file Sexual Orientation Not on file Travel History Travel Start Travel End [facility] 12/28/2023 01/27/2024 documented as of this encounter Plan of Treatment Upcoming Encounters Date Type Department Care Team (Late st Contact Info) Description 02/28/2024 9:15 AM EST Scheduled View Only Radiation Oncology at [address] [address] 02/28/2024 9:25 AM EST Office Visit Radiation Oncology at [address] [address] Leroy Berumen MD [address] [place] [address] [place] [address] 03/02/2024 9:30 AM EST Scheduled View Only Radiation Oncology at [address] [address] 03/03/2024 9:15 AM EST Scheduled View Only Radiation Oncology at [address] [address] 03/04/2024 9:45 AM EST Scheduled View Only Radiation Oncology at [address] [address] 03/05/2024 9:30 AM EST Scheduled View Only Radiation Oncology at [address] [address] 03/06/2024 8:30 AM EST Infusion Hematology Oncology at [address] [address] 03/06/2024 9:15 AM EST Scheduled View Only Radiation Oncology at [address] [address] 03/09/2024 9:15 AM EST Scheduled View Only Radiation Oncology at [address] [address] 03/10/2024 9:15 AM EST Scheduled View Only Radiation Oncology at [address] [address] 03/11/2024 9:15 AM EST Scheduled View Only Radiation Oncology at [address] [address] 03/12/2024 9:15 AM EST Scheduled View Only Radiation Oncology at [address] [address] 03/13/2024 9:15 AM EST Scheduled View Only Radiation Oncology at [address] [address] 03/16/2024 9:15 AM EST Scheduled View Only Radiation Oncology at [address] [address] 03/17/2024 9:15 AM EST Scheduled View Only Radiation Oncology at [address] [address] 03/18/2024 9:15 AM EST Scheduled View Only Radiation Oncology at [address] [address] 03/19/2024 9:15 AM EST Scheduled View Only Radiation Oncology at [address] [address] 03/20/2024 9:15 AM EST Scheduled View Only Radiation Oncology at [address] [address] 03/23/2024 9:15 AM EST Scheduled View Only Radiation Oncology at [address] [address] 03/24/2024 9:30 AM EST Scheduled View Only Radiation Oncology at [address] [address] documented as of this encounter Visit Diagnoses Not on filedocumented in this encounter Care Teams Clinical Trials Manager Relationship Specialty Start Date End Date Jeff Pfeiffer MD [address] [place] [address] PCP - General Family Medicine 03/12/23 documented as of this encounter
--- OUTSIDE RECORDS SUMMARY | 2024-02-27 10:46 | XMS_ITS | Encounter Summary ---
Author Organization [facility] Address [facility] [place] [address] Care Team Providers Care Roustabout Crew Name Role Phone Jeff Pfeiffer MD Primary Care Provider [phone] Encounter Details Date Type Department Care Team (Late st Contact Info) Description 10/17/2023 Orders Only Radiation Oncology at [address] [address] Leroy Berumen MD [address] [place] [address] [place] [address] Social History Tobacco Use Types Packs/Day Years Used Date Smoking Tobacco: Former Cigarettes Q uit: 1989 Smokeless Tobacco: Never Alcohol Use Standard Drinks/Week Comments Yes 15 (1 standard drink = 0.6 oz pu re alcohol) [facility] Utilities Answer Date Recorded In the past 12 months has th e electric, gas, oil, or water [employer] threatened to shut off services in [...] medical appointments or from getting medications? No 0502/2023 In the past 12 months, has l [...] file Travel History Travel Start Travel End [facility] 12/28/2023 01/27/2024 documented as of this encounter Plan of Treatment Upcoming Encounters Date Type Department Care Team (Late st Contact Info) Description 02/28/2024 9:15 AM EST Scheduled View Only Radiation Oncology at [address] [phone] 02/28/2024 9:25 AM EST Office Visit Radiation Oncology at [address] [address] Leroy Berumen MD [address] [place] [address] [place] [address] 03/02/2024 9:30 AM EST Scheduled View Only Radiation Oncology at [address] [address] 03/03/2024 9:15 AM EST Scheduled View Only Radiation Oncology at [address] [address] 03/04/2024 9:45 AM EST Scheduled View Only Radiation Oncology at [address] [address] 03/05/2024 9:30 AM EST Scheduled View Only Radiation Oncology at [address] [address] 03/06/2024 8:30 AM EST Infusion Hematology Oncology at [address] [place] [address] 03/06/2024 9:15 AM EST Scheduled View Only Radiation Oncology at [address] [place] [address] 03/09/2024 9:15 AM EST Scheduled View Only Radiation Oncology at [address] [place] [address] 03/10/2024 9:15 AM EST Scheduled View Only Radiation Oncology at [address] [place] [address] 03/11/2024 9:15 AM EST Scheduled View Only Radiation Oncology at [address] [place] [address] 03/12/2024 9:15 AM EST Scheduled View Only Radiation Oncology at [address] [place] [address] 03/13/2024 9:15 AM EST Scheduled View Only Radiation Oncology at [address] [place] [address] 03/16/2024 9:15 AM EST Scheduled View Only Radiation Oncology at [address] [place] [address] 03/17/2024 9:15 AM EST Scheduled View Only Radiation Oncology at [address] [place] [address] 03/18/2024 9:15 AM EST Scheduled View Only Radiation Oncology at [address] [place] [address] 03/19/2024 9:15 AM EST Scheduled View Only Radiation Oncology at [address] [place] [address] 03/20/2024 9:15 AM EST Scheduled View Only Radiation Oncology at [address] [place] [address] 03/23/2024 9:15 AM EST Scheduled View Only Radiation Oncology at [address] [address] 03/24/2024 9:30 AM EST Scheduled View Only Radiation Oncology at [address] [phone] documented as of this encounter Visit Diagnoses Not on filedocumented in this encounter Care Teams Roustabout Crew Relationship Specialty Start Date End Date Jeff Pfeiffer MD [address] [place] [address] PCP - General Family Medicine 03/12/23 documented as of this encounter
--- OUTSIDE RECORDS SUMMARY | 2024-02-27 10:46 | XMS_ITS | Encounter Summary ---
Author Organization [facility] Address [facility] [place] [address] Care Team Providers Care Nuclear Medicine Technician Name Role Phone Jeff Pfeiffer MD Primary Care Provider [phone] Encounter Details Date Type Department Care Team (Late st Contact Info) Description 07/11/2023 Notes Only Radiation Oncology at [address] [address] Leroy Berumen MD [address] [place] [address] [place] [address] Social History Tobacco Use Types Packs/Day Years Used Date Smoking Tobacco: Former Cigarettes Q uit: 1989 Smokeless Tobacco: Never Alcohol Use Standard Drinks/Week Comments Yes 15 (1 standard drink = 0.6 oz pu re alcohol) [facility] Utilities Answer Date Recorded In the past 12 months has th e electric, gas, oil, or water [employer] threatened to shut off services in your [...] place to sleep or slept in a skilled nursing (including now)? No 06/19/2023 Sex and Gender Information Value Date Recorded Sex Assigned at Not on file Gender Identity Not on file Sexual Orientation Not on file Travel History Travel Start Travel End [facility] 12/28/2023 01/27/2024 documented as of this encounter Progress Notes * Leroy Berumen MD - 07/11/2023 11:30 AM EDT Images from the original note were not included. documented in this encounter Plan of Treatment Upcoming Encounters Date Type Department Care Team (Late st Contact Info) Description 02/28/2024 9:15 AM EST Scheduled View Only Radiation Oncology at [address] [address] 02/28/2024 9:25 AM EST Office Visit Radiation Oncology at [address] [phone] Leroy Berumen MD [address] [place] [address] [place] [address] 03/02/2024 9:30 AM EST Scheduled View Only Radiation Oncology at [address] [address] 03/03/2024 9:15 AM EST Scheduled View Only Radiation Oncology at [address] [address] 03/04/2024 9:45 AM EST Scheduled View Only Radiation Oncology at [address] [address] 03/05/2024 9:30 AM EST Scheduled View Only Radiation Oncology at [address] [address] 03/06/2024 8:30 AM EST Infusion Hematology Oncology at [address] [address] 03/06/2024 9:15 AM EST Scheduled View Only Radiation Oncology at [address] [address] 03/09/2024 9:15 AM EST Scheduled View Only Radiation Oncology at [address] [address] 03/10/2024 9:15 AM EST Scheduled View Only Radiation Oncology at [address] [address] 03/11/2024 9:15 AM EST Scheduled View Only Radiation Oncology at [address] [address] 03/12/2024 9:15 AM EST Scheduled View Only Radiation Oncology at [address] [address] 03/13/2024 9:15 AM EST Scheduled View Only Radiation Oncology at [address] [address] 03/16/2024 9:15 AM EST Scheduled View Only Radiation Oncology at [address] [address] 03/17/2024 9:15 AM EST Scheduled View Only Radiation Oncology at [address] [address] 03/18/2024 9:15 AM EST Scheduled View Only Radiation Oncology at [address] [address] 03/19/2024 9:15 AM EST Scheduled View Only Radiation Oncology at [address] [address] 03/20/2024 9:15 AM EST Scheduled View Only Radiation Oncology at [address] [address] 03/23/2024 9:15 AM EST Scheduled View Only Radiation Oncology at [address] [address] 03/24/2024 9:30 AM EST Scheduled View Only Radiation Oncology at [address] [address] documented as of this encounter Visit Diagnoses Not on filedocumented in this encounter Care Teams Nuclear Medicine Technician Relationship Specialty Start Date End Date Jeff Pfeiffer MD [address] [place] [address] PCP - General Family Medicine 03/12/23 documented as of this encounter
--- OUTSIDE RECORDS SUMMARY | 2024-02-27 10:46 | XMS_ITS | Encounter Summary ---
Author Organization [facility] Address [facility] [place] [address] Care Team Providers Care Desk Top Publisher Name Role Phone Jeff Pfeiffer MD Primary Care Provider [phone] Encounter Details Date Type Department Care Team (Latest Contact Info) Description 07/18/2023 Travel Social History Tobacco Use Types Packs/Day Years Used Date Smoking Tobacco: Former Cigarettes Q uit: 1989 Smokeless Tobacco: Never Alcohol Use Standard Drinks/Week Comments Yes 15 (1 standard drink = 0.6 oz pu re alcohol) [facility] Utilities Answer Date Recorded In the [...] file Travel History Travel Start Travel End [facility] 12/28/2023 01/27/2024 documented as of this encounter Plan of Treatment Upcoming Encounters Date Type Department Care Team (Late st Contact Info) Description 02/28/2024 9:15 AM EST Scheduled View Only Radiation Oncology at [address] [address] 02/28/2024 9:25 AM EST Office Visit Radiation Oncology at [address] [address] Leroy Berumen MD [address] [place] [address] [place] [address] 03/02/2024 9:30 AM EST Scheduled View Only Radiation Oncology at [address] [address] 03/03/2024 9:15 AM EST Scheduled View Only Radiation Oncology at [address] [address] 03/04/2024 9:45 AM EST Scheduled View Only Radiation Oncology at [address] [address] 03/05/2024 9:30 AM EST Scheduled View Only Radiation Oncology at [address] [address] 03/06/2024 8:30 AM EST Infusion Hematology Oncology at [address] [address] 03/06/2024 9:15 AM EST Scheduled View Only Radiation Oncology at [address] [address] 03/09/2024 9:15 AM EST Scheduled View Only Radiation Oncology at [address] [address] 03/10/2024 9:15 AM EST Scheduled View Only Radiation Oncology at [address] [address] 03/11/2024 9:15 AM EST Scheduled View Only Radiation Oncology at [address] [address] 03/12/2024 9:15 AM EST Scheduled View Only Radiation Oncology at [address] [address] 03/13/2024 9:15 AM EST Scheduled View Only Radiation Oncology at [address] [address] 03/16/2024 9:15 AM EST Scheduled View Only Radiation Oncology at [address] [address] 03/17/2024 9:15 AM EST Scheduled View Only Radiation Oncology at [address] [address] 03/18/2024 9:15 AM EST Scheduled View Only Radiation Oncology at [address] [address] 03/19/2024 9:15 AM EST Scheduled View Only Radiation Oncology at [address] [address] 03/20/2024 9:15 AM EST Scheduled View Only Radiation Oncology at [address] [address] 03/23/2024 9:15 AM EST Scheduled View Only Radiation Oncology at [address] [address] 03/24/2024 9:30 AM EST Scheduled View Only Radiation Oncology at [address] [address] documented as of this encounter Visit Diagnoses Not on filedocumented in this encounter Care Teams Desk Top Publisher Relationship Specialty Start Date End Date Jeff Pfeiffer MD [address] [place] [address] PCP - General Family Medicine 03/12/23 documented as of this encounter
--- OUTSIDE RECORDS SUMMARY | 2024-02-27 10:46 | XMS_ITS | Encounter Summary ---
Author Organization [facility] Address [facility] [place] [address] Care Team Providers Care Retail Event Coordinator Name Role Phone Jeff Pfeiffer MD Primary Care Provider [phone] Reason for Visit * Reason Comments Injections Lupron * Treatment/Therapy Plan Authorization (Routine) - Authorized Specialty Diagnoses / Procedures Referred By Contdante t Referred To Contact Hematology and Oncology Diagnoses Malignant neoplasm of prostate Leroy Berumen MD [address] [place] [address] [place] [address] Stj Hem Onc Infusion [address] [place] [phone] Referral ID Status Reason Start Date Expiration Date V isits Requested Visits Authorized [id number] Authorized 07/12/2023 07/11/2024 99 101 Encounter Details Date Type Department Care Team (Late st Contact Info) Description 11/15/2023 8:30 AM EDT Infusion Hematology Oncology at [address] [address] Malignant neoplasm of prostate Social History Tobacco Use Types Packs/Day Years Used Date Smoking Tobacco: Former Cigarettes Q uit: 1989 Smokeless Tobacco: Never Alcohol Use Standard Drinks/Week Comments Yes 15 (1 standard drink = 0.6 oz pu re alcohol) [facility] Utilities Answer Date Recorded In the [...] file Travel History Travel Start Travel End [facility] 12/28/2023 01/27/2024 documented as of this encounter Last Filed Vital Signs Vital Sign Reading Time Taken Comments Blood Pressure 136/69 11/15/2023 8:37 AM EDT Pulse 67 11/15/2023 8:37 AM EDT Temperature 36.3 ??C (97.3 ??F) 11/15/2023 8:37 AM ED T Respiratory Rate 16 11/15/2023 8:37 AM EDT Oxygen Saturation 100% 11/15/2023 8:37 AM EDT Inhaled Oxygen Concentration - - Weight 73.5 kg (162 lb) 11/15/2023 8:37 AM EDT Height - - Body Mass Index - - documented in this encounter Progress Notes * Genia Patrick RN - 11/15/2023 8:30 AM EDT Infusion Note Diagnosis:Prostate Cancer Treatment: Lupron Injection Lupron injected in right gluteal per patient request due to back pain in left side. Patient instructed on side effects of Lupron. Patient states understanding of teaching, Patient aware to call clinic with any questions or concerns. Plan: Return to clinic as scheduled.Infusion Note documented in this encounter Plan of Treatment Upcoming Encounters Date Type Department Care Team (Late st Contact Info) Description 02/28/2024 9:15 AM EST Scheduled View Only Radiation Oncology at [address] [address] 02/28/2024 9:25 AM EST Office Visit Radiation Oncology at [address] [address] Leroy Berumen MD [address] [place] [address] [place] [address] 03/02/2024 9:30 AM EST Scheduled View Only Radiation Oncology at [address] [address] 03/03/2024 9:15 AM EST Scheduled View Only Radiation Oncology at [address] [address] 03/04/2024 9:45 AM EST Scheduled View Only Radiation Oncology at [address] [address] 03/05/2024 9:30 AM EST Scheduled View Only Radiation Oncology at [address] [address] 03/06/2024 8:30 AM EST Infusion Hematology Oncology at [address] [address] 03/06/2024 9:15 AM EST Scheduled View Only Radiation Oncology at [address] [address] 03/09/2024 9:15 AM EST Scheduled View Only Radiation Oncology at [address] [address] 03/10/2024 9:15 AM EST Scheduled View Only Radiation Oncology at [address] [address] 03/11/2024 9:15 AM EST Scheduled View Only Radiation Oncology at [address] [address] 03/12/2024 9:15 AM EST Scheduled View Only Radiation Oncology at [address] [address] 03/13/2024 9:15 AM EST Scheduled View Only Radiation Oncology at [address] [address] 03/16/2024 9:15 AM EST Scheduled View Only Radiation Oncology at [address] [address] 03/17/2024 9:15 AM EST Scheduled View Only Radiation Oncology at [address] [address] 03/18/2024 9:15 AM EST Scheduled View Only Radiation Oncology at [address] [address] 03/19/2024 9:15 AM EST Scheduled View Only Radiation Oncology at [address] [address] 03/20/2024 9:15 AM EST Scheduled View Only Radiation Oncology at [address] [address] 03/23/2024 9:15 AM EST Scheduled View Only Radiation Oncology at [address] [address] 03/24/2024 9:30 AM EST Scheduled View Only Radiation Oncology at [address] [address] documented as of this encounter Visit Diagnoses Diagnosis Malignant neoplasm of prostate documented in this encounter Administered Medications Inactive Administered Medications - up to 3 most recent administrations Medication Order MAR Action Action Date Dose Rate Site leuprolide (Lupron Depot) 7.5 mg intramuscular syringe kit 7.5 mg 7.5 mg, Intramuscular, ONCE, 1 dose, On Sat11/15/23 at 0900, Routine, This agent is restricted to outpatient use. Is this drug being given as an outpatient? Yes Given 11/15/2023 8:48 AM EDT 7.5 mg Right Gluteal documented in this encounter Care Teams Retail Event Coordinator Relationship Specialty Start Date End Date Jeff Pfeiffer MD [address] [place] [address] PCP - General Family Medicine 03/12/23 documented as of this encounter
--- OUTSIDE RECORDS SUMMARY | 2024-02-27 10:46 | XMS_ITS | Clinical Summary ---
Author Organization [facility] Address [address] [place] [address] Care Team Providers Care Skill Training Program Coordinator Name Role Phone Jeff Pfeiffer MD Primary Care Provide r Allergies No known active allergies Medications Coenzyme Q10 (CO Q-10) 100 mg capsule Take 1 Capsule by mouth daily. Active atorvastatin (LIPITOR) 40 mg tablet Take 1 Tablet by mouth daily. Active TAMSulosin (FLOMAX) 0.4 mg capsule Take 1 Capsule by mouth daily. Active Cholecalciferol , Vitamin D3, 10 mcg (400 unit) tablet [...] Recorded Sex Assigned at Not on file Legal Sex Male 8:49 EDT Gender Identity Not on file Sexual Orientation [...] Last Done Comments Hepatitis C Screen 1955 Fall Risk Screening 2020 COVID-19 Vaccine (2023- season) 2023 RSV Immunization ( o r 60+ Years) (1 - 1-dose 75+ series) 2030 Insurance [employer] MED[employer]ARE [place] Care Teams Skill Training Program Coordinator Relationship Specialty Start Date End Date Jeff Pfeiffer MD [address] [place] [id number] PCP - General 08/27/22
--- OUTSIDE RECORDS SUMMARY | 2024-02-27 10:46 | XMS_ITS | Encounter Summary ---
Author Organization [facility] Address [facility] [place] [address] Care Team Providers Care Graduate Nurse Name Role Phone Jeff Pfeiffer MD Primary Care Provider [phone] Reason for Visit * Reason Onset Date Comments Pre Procedure Call 01/01/2024 Encounter Details Date Type Department Care Team (Late st Contact Info) Description 01/01/2024 3:00 PM EST Telephone Radiation Oncology at [address] [phone] Rad NurseSt Judge Pre Procedure Call Social History Tobacco Use Types Packs/Day Years Used Date Smoking Tobacco: Former Cigarettes Q uit: 1989 Smokeless Tobacco: Never Alcohol Use Standard Drinks/Week Comments Yes 15 (1 standard drink = 0.6 oz pu re alcohol) [facility] Utilities Answer Date Recorded In the [...] place to sleep or slept in a senior living (including now)? No 06/19/2023 Sex and Gender Information Value Date Recorded Sex Assigned at Not on file Gender Identity Not on file Sexual Orientation Not on file Travel History Travel Start Travel End [facility] 12/28/2023 01/27/2024 documented as of this encounter Miscellaneous Notes * Telephone Encounter - Genia Patrick RN - 01/01/2024 3:08 PM EST Radiation Oncology Nurse Note [place], [place] Patient Information for Prostate Fiducial (Gold Coil) Placement Procedure Date: 01/08/24 Arrival Time: 0830 Time of Procedure: 0900 Location: [place], [place] Why Fiducial Placement or also known as ???gold coils?? ? You and your doctor have discussed treatment options and have decided that prostate fiducial placement, ???Gold coils, would be helpful in your external beam radiation treatment. The coil is a very small, 24-karat gold coil that will sit within the prostate and help to locate it on the planning CT scan. Usually 3 coils are inserted in the gland. INSTRUCTIONS PRIOR TO YOUR PROCEDURE One week prior to the day of your procedure: STOP TAKING BLOOD THINNERS Stop taking medications that might thin your blood (anticoagulants) 1 week before your Gold coil isscheduled to be placed i.e.; aspirin, ibuprofen, gingko biloba, Coumadin, Lovenox, etc. Please ask if you are not sure about any of your medications. For you this means stop taking : [ N/A ] Prescriptions to get filled: Jackson Barron Prescription for Antibiotic: to prevent infection [ Yes ] Levofloxacin 500 mg 1 hour before the procedure. Prescription to help you relax (optional, if needed) [ Yes ] Lorazepam 1 mg po 1 hour prior to procedure. Bring 2nd pill with you to procedure in case you need a repeat dose. You must have someone drive you home if you take this medication due to its sedative properties. [ Yes ]2 fleet enemas- you will need to pick this up over the counter. No prescription needed. Prescription for steroid: to prevent swelling at implant site. [ Yes ] dexamethasone: 2 mg twice a day for 3 days > Start day of procedure, once you get back home after procedure, take with food, then, 2 mg once a day for 3 days. THE DAY BEFORE THE PROCEDURE: Eat a normal dinner (evening meal) Administer one fleets enema before bedtime THE MORNING AND DAY OF THE PROCEDURE: Administer the second fleets enema (2-3 hours prior to scheduled time of procedure) Eat a normal meal and take your usual daily medications (except for anticoagulants) Take your prescribed antibiotic, levofloxacin 1 hour prior to procedure. If ordered: take Lorazepam 1 mg, po 1 hour prior to procedure. Plan to arrive in the Radiation/Oncology Department 30 minutes before scheduled procedure. See above arrival time. You will be asked to change in to a hospital gown (remove everything from your waist down.) How is the procedure done? You will be brought into a procedure room and asked to lie on your back with your legs placed in leg supports. After application of lidocaine lubricant, an ultrasound probe will be inserted into your rectum in order to visualize your prostate gland. After you are given a local anesthetic, the 2 needles containing the coils will be gently inserted through the skin into your prostate gland. AFTER THE GOLD COIL IMPLANT PROCEDURE: You may resume normal activity ( no bike riding, horseback riding, snowmobiling, or ATV riding for a couple days to avoid discomfort) You may resume sexual intercourse in 1 week. You may take extra-strength or regular Tylenol for any discomfort. Start dexamethasone as directed. 1 pill twice a day for 3 days, then 1 pill once a day for 3 days. Always take this medication with food. Avoid taking too late in the evening as it may causes insomnia. It may cause temporary elevation of blood sugar for diabetic patients. You may resume any NSAIDs 48 hours after the procedure. Call us if you notice any unusual swelling, difficulty with urination, pain or if you have any other concerns. Future Appointments: MRI : You will receive separate instructions specifically from the hospital concerning your exact arrival time and what you need to do to prepare for this. Date: Your planning session (simulation) will be done at : [ X ] [facility] at the Radiation Oncology Department section 2K [ ] [facility] [place], [place] [Date: 01/27/24 ] [Time: arrive at 0810 ] For proper visualization of prostate, it is required that you have a moderately full bladder. This will require you to arrive 30 minutes before scheduled appointment and drink 2 glasses of water upon arrival. There are no restrictions with eating. How to reach us: [facility] [phone] For weekends and after hours: Call [facility] ask for the interrelated special education teacher radiation oncologist Patient was provided a printed copy of these instructions. This was reviewed with him. He states his questions have been answered and he verbalized understanding of these instructions. documented in this encounter Plan of Treatment Upcoming Encounters Date Type Department Care Team (Late st Contact Info) Description 02/28/2024 9:15 AM EST Scheduled View Only Radiation Oncology at [address] [phone] 02/28/2024 9:25 AM EST Office Visit Radiation Oncology at [address] [phone] Leroy Berumen MD [address] [place] [address] [place] [address] 03/02/2024 9:30 AM EST Scheduled View Only Radiation Oncology at [address] [phone] 03/03/2024 9:15 AM EST Scheduled View Only Radiation Oncology at [address] [phone] 03/04/2024 9:45 AM EST Scheduled View Only Radiation Oncology at [address] [phone] 03/05/2024 9:30 AM EST Scheduled View Only Radiation Oncology at [address] [place] [address] 03/06/2024 8:30 AM EST Infusion Hematology Oncology at [address] [place] [address] 03/06/2024 9:15 AM EST Scheduled View Only Radiation Oncology at [address] [place] [address] 03/09/2024 9:15 AM EST Scheduled View Only Radiation Oncology at [address] [phone] 03/10/2024 9:15 AM EST Scheduled View Only Radiation Oncology at [address] [place] [address] 03/11/2024 9:15 AM EST Scheduled View Only Radiation Oncology at [address] [place] [address] 03/12/2024 9:15 AM EST Scheduled View Only Radiation Oncology at [address] [place] [address] 03/13/2024 9:15 AM EST Scheduled View Only Radiation Oncology at [address] [place] [address] 03/16/2024 9:15 AM EST Scheduled View Only Radiation Oncology at [address] [place] [address] 03/17/2024 9:15 AM EST Scheduled View Only Radiation Oncology at [address] [place] [address] 03/18/2024 9:15 AM EST Scheduled View Only Radiation Oncology at [address] [phone] 03/19/2024 9:15 AM EST Scheduled View Only Radiation Oncology at [address] [phone] 03/20/2024 9:15 AM EST Scheduled View Only Radiation Oncology at [address] [phone] 03/23/2024 9:15 AM EST Scheduled View Only Radiation Oncology at [address] [phone] 03/24/2024 9:30 AM EST Scheduled View Only Radiation Oncology at [address] [phone] documented as of this encounter Visit Diagnoses Diagnosis Malignant neoplasm of prostate- Primary documented in this encounter Care Teams Graduate Nurse Relationship Specialty Start Date End Date Jeff Pfeiffer MD [address] [place] [address] PCP - General Family Medicine 03/12/23 documented as of this encounter
--- OUTSIDE RECORDS SUMMARY | 2024-02-27 10:46 | XMS_ITS | Encounter Summary ---
Author Organization [facility] [place] [address] Care Team Providers Care Video News Editor Name Role Phone Jeff Pfeiffer MD Primary Care Provider [phone] Encounter Details Date Type Department Care Team (Latest Contact Info) Description 03/14/2023 Travel Social History Tobacco Use Types Packs/Day Years Used Date Smoking Tobacco: Never Assessed Sex and Gender Information Value Date Recorded Sex Assigned at Not on file Gender Identity Not on file Sexual Orientation Not on file Travel History Travel Start Travel End [facility] 12/28/2023 01/27/2024 documented as of this encounter Plan of Treatment Upcoming Encounters Date Type Department Care Team (Late st Contact Info) Description 02/28/2024 9:15 AM EST Scheduled View Only Radiation Oncology at [address] [phone] 02/28/2024 9:25 AM EST Office Visit Radiation Oncology at [address] [phone] Leroy Berumen MD [address] [place] [address] [place] [address] 03/02/2024 9:30 AM EST Scheduled View Only Radiation Oncology at [address] [phone] 03/03/2024 9:15 AM EST Scheduled View Only Radiation Oncology at [address] [phone] 03/04/2024 9:45 AM EST Scheduled View Only Radiation Oncology at [address] [phone] 03/05/2024 9:30 AM EST Scheduled View Only Radiation Oncology at [address] [phone] 03/06/2024 8:30 AM EST Infusion Hematology Oncology at [address] [phone] 03/06/2024 9:15 AM EST Scheduled View Only Radiation Oncology at [address] [phone] 03/09/2024 9:15 AM EST Scheduled View Only Radiation Oncology at [address] [phone] 03/10/2024 9:15 AM EST Scheduled View Only Radiation Oncology at [address] [phone] 03/11/2024 9:15 AM EST Scheduled View Only Radiation Oncology at [address] [phone] 03/12/2024 9:15 AM EST Scheduled View Only Radiation Oncology at [address] [phone] 03/13/2024 9:15 AM EST Scheduled View Only Radiation Oncology at [address] [phone] 03/16/2024 9:15 AM EST Scheduled View Only Radiation Oncology at [address] [phone] 03/17/2024 9:15 AM EST Scheduled View Only Radiation Oncology at [address] [phone] 03/18/2024 9:15 AM EST Scheduled View Only Radiation Oncology at [address] [phone] 03/19/2024 9:15 AM EST Scheduled View Only Radiation Oncology at [address] [phone] 03/20/2024 9:15 AM EST Scheduled View Only Radiation Oncology at [address] [phone] 03/23/2024 9:15 AM EST Scheduled View Only Radiation Oncology at [address] [phone] 03/24/2024 9:30 AM EST Scheduled View Only Radiation Oncology at [address] [phone] documented as of this encounter Visit Diagnoses Not on filedocumented in this encounter Care Teams Video News Editor Relationship Specialty Start Date End Date Jeff Pfeiffer MD [address] [place] [address] PCP - General Family Medicine 03/12/23 documented as of this encounter
--- OUTSIDE RECORDS SUMMARY | 2024-02-27 10:46 | XMS_ITS | Continuity of Care Document ---
Author Organization [facility] Address [address] [place] [address] Care Team Providers Care Supervisor Type Disk Quality Control Name Role Phone ESCALERA, VIVI Urologist LISA AMOS Radiation Oncologist [phone] Assessment No assessment recorded. Plan of Treatment Reminders Order Date Submit Date Provider Last Modified By Organization Details Last Modified Time Details Appointments Nurse Visit 10 2024 07:40A M [place] Nursing Staff Not available Not available Not available Medicare Wellness 40 (Subs) 2024 09:30A M JORGE PFEIFFER Not available Not available Not available Lab CBC w/ auto diff - to be drawn at [facility] 2024 025 [facility] (Registration ), [address] [place] [address] [place], [address], 02/26/2024 12:35:22 Referral None recorded. Procedures None recorded. Surgeries None recorded. Imaging US, neck, soft tissue - R submandib ular mass, non-tende r. active prostate ca. pls eval and treat. 2024 025 [facility] (Radiology), [address] [place] [address] [place], [address], 02/26/2024 12:50:36 XR, chest, 2 view - chronic cough x 8-9 mos, hx of prostate cancer 2024 025 [facility], [address], [place], [address], 02/26/2024 12:40:27 Medication Orders None recorded. Patient TargetsNo targets recorded. Patient Instructions Encounter Date Encounter Id Patient Instructions Last Modified By Organization Details Last Modified Time 02/26/2024 [id number] It was nice to s froilan hansen Rolando! Here is a summary of the ta instructions and recommendations from our consultation: - Knee Bursitis: - Consider using a Neoprene knee brace consistently for a few weeks to help reabsorb fluid. - Avoid draining the bursa to prevent potential complications. - Aleve may be helpful here. - Medication: - You may take Aleve to help with inflammation related to your prostate and potentially your knee. - Diagnostic Tests: - Chest X-ray ordered to evaluate persistent cough. - Ultrasound and complete blood count (CBC) ordered to investigate the lump on your neck. These will also be scheduled in [place]. Call to schedule. - Follow-up: - Please follow up with our office after your tests. - Do not assume that no news is good news; we will reach out with your results. If you have any questions or need further assistance, please do not hesitate to contact our office. Take care! [email or web address] Not available 02/26/2024 12:29:03 Reason for Referral None Reported. Problems Name Problem SNOMED Code Status Onset Date Resolution Date Notes Provider Name and Address Organization Details Recorded Time Herpesvi bebeto infectio n [id number] Completed 202101/13/2024 Problem Code: B00.9; Problem Code Type: ICD-10; MD Amy [address], [place], [address] , [facility] 16:59:12 Oral herpes simplex infectio n 615860620 Active [address], [place], [address] , [facility] 16:59:07 History of polyp of colon 714347804 Completed 201504/25/2023 Problem Code: Z86.010; Problem Code Type: ICD-10; MD Amy [address], [place], [address] , [facility] 4 10:41:52 History of malignan t melanoma of the skin 14770574491 8 Active 201704/04/19 18 - Comments only - Jorge Pfeiffer M.D. 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 Problem Code: Z85.820; Problem Code Type: ICD-10; MD Amy [address], [place], [address] , [facility] 4 10:41:25 Adult health examinat ion Active 201705/29/19 23 - Comments only - Jorge Pfeiffer M.D. - Medicare wellness exam. HRA reviewed . Personal ized preventi on plan competed and rev'd with patient. patient was given copy of P[facility] on of visit. Problem Code: Z00.00; Problem Code Type: ICD-10; MD Amy [address], [place], [address] , [facility] 4 10:41:25 Seborrhe ic dermatit is 86272099 Active 201705/19/19 20 - Comments only - Jorge Pfeiffer M.D. - Discusse d that it is okay to use a very low potency steroid cream such as hydrocor tisone cream on his face regularl y, with a 4 to 5-day medicati on vacation every 2 weeks. Use this along with Lamisil. Discusse d with saroj mccallum when he sees them. Problem Code: L21.9; Problem Code Type: ICD-10; MD Amy [address], [place], [address] , [facility] 4 10:41:25 Cough 05366034 Completed 201711/27/2017 11/14/19 18 - Comments only - Jorge Pfeiffer M.D. - Lungs are clear. Discusse d symptoma tic treatmen t (see pt instruct ions). patient instruct ed to call w/ worsenin g or persiste nt symptoms . Problem Code: R05; Problem Code Type: ICD-10; Not Available [facility] 3 04:37:53 Nocturia 835786946 Completed 201704/25/2023 05/20/19 21 - Deterior ated - Tracy Fletcher - Symptoms of nocturia and increase d frequenc y/urgenc y worsened since last discusse d. Currentl y taking Saw Ekwok for symptom manageme nt. Wonderin g about recommen dations for high quality suppleme nts and appropri ate dosing. Would like to continue with natural suppleme nts for time being. - Recommen d Saw Ekwok at 320mg/d for addition al 3 months. - Call if symptoms worsen or fail to improve to discuss pharmece utical manageme nt options. Problem Code: R35.1; Problem Code Type: ICD-10; MD Amy [address], [place], [address] , [facility] 4 10:41:52 Right lower quadrant pain 836894089 Completed 201704/25/2023 09/23/19 20 - Comments only - Jorge Pfeiffer M.D. - Present intermit tently for years. Has never done PT for it. Offered PT, but he declines . Not botherin g him currentl y. I asked him to let me know in the future if he does want a referral to PT. Problem Code: R10.31; Problem Code Type: ICD-10; MD Amy [address], [place], [address] , [facility] 4 10:41:52 Abnormal finding on evaluati on procedur e 363982422 Completed 201806/11/2018 Problem Code: R89.9; Problem Code Type: ICD-10; Not Available [facility] 3 04:37:54 Disorder of skin and/or subcutan eous tissue 55897473 Completed 201804/25/2023 05/19/19 20 - Comments only - Jorge Pfeiffer M.D. - It appears that he has an upcoming appointm ent at [facility], although I do not know if that will be canceled due to the pandemic . We will have the office call him with this informat ion, and with the number to contact their office and confirm appointm ent or rescdestiny le as appropri ate. Problem Code: L98.9; Problem Code Type: ICD-10; MD Amy [address], [place], [address] , [facility] 4 10:41:52 Hyperlip idemia 98453549 Active 201905/24/19 22 - Comments only - Jorge Pfeiffer M.D. - Lipids: TC 188 ( 2:18:00 PM) LDL 108 ( 2:18:00 PM) HDL 64 ( 2:18:00 PM) TG 82 ( 2:18:00 PM) Tolerate s statin well. Check CMP today. Problem Code: E78.5; Problem Code Type: ICD-10; MD Amy [address], [place], [address] , [facility] 4 10:41:26 External hordeolu m 0518397 Completed 201909/29/2019 09/23/19 20 - Comments only - Jorge Pfeiffer M.D. - Mild. Warm compress es, call with tho flores. Problem Code: H00.019; Problem Code Type: ICD-10; Not Available [facility] 3 04:37:54 Screenin g for malignan t neoplasm of colon Completed 202004/25/2023 Problem Code: Z12.11; Problem Code Type: ICD-10; MD Amy [address] Dr, [place], [address] , [facility] 4 10:41:52 Closed fracture of single right rib 08674295545 616804 Completed 202009/15/2020 09/09/19 21 - Comments only - Jorge Pfeiffer M.D. - Pain is slowly improvin g. Reviewed timeline for recovery from rib fracture . Reviewed bracing for Valsalva . APAP/ibu profen for pain. Increase activity as tolerate d, with caution with lifting/ pushing/ pulling. Call with any concerns . Problem Code: S22.31xA ; Problem Code Type: ICD-10; Not Available [facility] 3 04:37:54 Removal of suture Completed 202104/07/2021 03/31/19 22 - Comments only - Jorge Pfeiffer M.D. - Procedur e note: #2 simple sutures on posterio r L thigh removed by standard procedur e. Patient tolerate d procedur e well, w/o complica tions. Problem Code: Z48.02; Problem Code Type: ICD-10; Not Available [facility] 3 04:37:54 Viral screenin g Completed 202104/07/2021 03/31/19 22 - Comments only - Jorge Pfeiffer M.D. - Rapid antigen test here negative . Document ation provided to patient. Problem Code: Z11.52; Problem Code Type: ICD-10; Not Available [facility] 3 04:37:54 Herpesvi bebeto infectio n 91062562 Completed 202104/25/2023 Problem Code: B00.9; Problem Code Type: ICD-10; MD Amy [address]Z Dr, [place], [address] , [facility] 4 16:59:12 Adult health examinat ion Completed 202106/22/2021 05/24/19 22 - Comments only - Jorge Pfeiffer M.D. - Medicare wellness exam. HRA reviewed . Personal ized preventi on plan competed and rev'd with patient. patient was given copy of PPP at [facility] on of visit. Problem Code: Z00.00; Problem Code Type: ICD-10; MD Amy [address], [place], [address] , [facility] 4 10:41:25 Nicotine dependen ce 23680292 Completed 202104/25/2023 05/24/19 22 - Comments only - Jorge Pfeiffer M.D. - Outside window for lung ca screenin g, but needs AAA screen - ordered. Problem Code: Z87.891; Problem Code Type: ICD-10; MD Amy [address], [place], [address] , [facility] 4 10:41:52 Benign prostati c hyperpla gordon 780149519 Active 202105/24/19 22 - Comments only - Jorge Pfeiffer M.D. - with signific ant sx burden. Declines rectal exam today. Will check PSA. See pt inst re: botanica ls/suppl ements. He prefers to avoid pharmace uticals, but I did encourag e him to consider tamsulos in if sx not improved in a few mos. Problem Code: N40.0; Problem Code Type: ICD-10; MD Amy [address], [place], [address] , [facility] 4 10:41:25 Superfic ial injury of conjunct deb 7287295 Completed 202101/13/[address], [place], [address] , [facility] 4 16:59:22 Localize d eruption of skin 857377508 Completed 202102/06/2022 01/25/20 22 - Comments only - Mckalyn Margarette M.D. - No c/w shingles . ? irritant dermatit is from L arm being constant ly against side, includin g skin-to- skin while sleeping . Rx sent for TAC- he will call if worsens or persists despite steroid cream. Advised sleeping in cotton jolynn-opal t for the time being to avoid skin-to- skin irritati on. Problem Code: R21; Problem Code Type: ICD-10; Not Available [facility] 3 04:37:55 Sleep disorder 95540731 Completed 202102/06/2022 01/25/20 22 - Comments only - Jorge Pfeiffer M.D. - Due to pain from shoulder dislocat ion. Discusse d sleep aid vs. muscle relaxant . Trial Ambien, intermit tently and only prn. Rx sent for #5 tabs. He knows this is not to be used regularl y or long-ter m. He will call if ineffect adalgisa. Problem Code: G47.8; Problem Code Type: ICD-10; Not Available [facility] 3 04:37:56 Rupture of rotator cuff of left shoulder 68543702786 425495 Completed 202205/28/2022 Problem Code: M75.102; Problem Code Type: ICD-10; Not Available [facility] 3 04:37:56 Fitting of hearing aid Completed 202204/25/2023 Problem Code: Z46.1; Problem Code Type: ICD-10; JORGE PFEIFFER MD [address], [place], [address] , [facility]. 4 10:41:52 Bursitis of right knee 80058002560 41627 Completed 202206/23/2022 05/29/19 23 - Comments only - Jorge Pfeiffer M.D. - Mary vallecillo. Waxes and wanes. Not painful or limiting . Likely r/t previous injury, surgery, OA. He will let me know if it becomes botherso me and I will refer to PT and ortho. Problem Code: M70.51; Problem Code Type: ICD-10; Not Available [facility] 3 04:37:56 Prostate specific antigen above referenc e range 605670042 Completed 202204/25/2023 Problem Code: R97.20; Problem Code Type: ICD-10; MD Amy MARTINEZ Dr, [address] 4 10:41:52 Asthenia 64313141 Completed 202204/25/2023 Problem Code: R53.1; Problem Code Type: ICD-10; MD Amy MARTINEZ Dr, [address] 4 10:41:52 Muscle pain 06259373 Completed 202204/25/2023 Problem Code: M79.10; Problem Code Type: ICD-10; MD Amy MARTINEZ Dr, [address] 4 10:41:52 Fatigue 68349178 Completed 202204/25/2023 Problem Code: R53.83; Problem Code Type: ICD-10; MD Amy MARTINEZ Dr, [address] 4 10:41:52 Inflamma tory polyarth ropathy 759282130 Completed 202204/25/2023 Problem Code: M06.4; Problem Code Type: ICD-10; MD Amy MARTINEZ Dr, [address] 4 10:41:52 Polyp of colon 81876442 Completed 201711/14/2022 Problem Code: K63.5; Problem Code Type: ICD-10; Not Available [facility] 3 04:37:57 Malignan t melanoma of skin 35172267 Completed 201711/14/2022 Problem Code: C43.9; Problem Code Type: ICD-10; Not Available [facility] 3 04:37:57 Allergic contact dermatit is caused by plant material 16437077919 650800 Completed 201711/13/2017 Problem Code: L23.7; Problem Code Type: ICD-10; Not Available [facility] 3 04:37:57 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 - Excellen t response to higher dose of predniso ne. Discusse d importan ce of slow taper - see pt instruct ions for plan. I've asked him to reach out if he have worsenin g pain at any point. Otherwis e, f/u in the spring (he declines sooner appt). Recheck inflamm markers today for treatmen t baseline . Problem Code: M35.3; Problem Code Type: ICD-10; MD Amy [address], [place], [address] , [facility] 4 10:41:26 Liver enzymes level above referenc e range 505117759 Completed 202211/30/2022 11/13/19 23 - Comments only - Jorge Pfeiffer M.D. - Recheck as above. Problem Code: R74.01; Problem Code Type: ICD-10; Not Available [facility] 4 05:38:12 Primary malignan t neoplasm of prostate 63465242 Active [address], [place], [address] , [facility] 4 10:40:36 SARS-CoV -2 Completed 202301/13/[address], [place], [address] , [facility] 4 16:59:15 Acute low back pain 648977070 Active 2023 JORGE PFEIFFER MD [address], [place], [address] , [facility]. 16:01:44 Problem Notes None recorded. Medical Equipment None Reported. Allergies No known drug allergies Medications Name Sig Start Date Stop Date Status Note LastModified by Organization Details LastModified Time Prescript ion - Renewal 11/11 completed ESCITALO PRAM 10MG TABLETS Not Available Not Available Not Available atorvasta tin 40 mg tablet TAKE ONE TABLET BY MOUTH EVERY EVENING 05/27 completed Not Available Not Available Not Available prednison e 10 mg tablet Take 6 tabs x3 d, 4 tabs x3 d, 2 tabs x3 d, 1 tab x3 d, then stop 11/13 completed Not Available Not Available Not Available atorvasta tin 20 mg tablet TAKE ONE TABLET BY MOUTH EVERY EVENING active Not Available Not Available No t Available valacyclo vir 1 gram tablet 2 tabs q 12 hours for 2 doses prn 01/08 completed Not Available Not Available Not Available naltrexon e 50 mg tablet Take 1 tab by mouth daily 09/14 completed Not Available Not Available Not Available prednison e 5 mg tablet Take 4 tablet by mouth as directed . Taper dose as directed . 05/27 completed Not Available Not Available Not Available triamcino lone acetonide 0.025 % lotion Apply to affected area of face twice daily 05/16 completed Not Available Not Available Not Available Antabuse 250 mg tablet 1 tab qd 05/21 completed Not Available Not Available Not Available acyclovir 400 mg tablet TAKE ONE TABLET BY MOUTH THREE TIMES A DAY FOR 5 DAYS active Not Available Not Available No t Available sildenafi l 100 mg tablet TAKE ONE TABLET BY MOUTH EVERY DAY NEEDED FOR SEXUAL ACTIVITY ; ADMINIST ER 30 MIN. TO 4 HOURS BEFORE ACTIVITY active Not Available Not Available No t Available triamcino lone acetonide 0.1 % topical cream Apply a small amount to affected area twice a day for up to 2 weeks 02/27 completed Not Available Not Available Not Available guaifenes in 200 mg tablet 1 tab by mouth every 4 hours as needed for cough 05/16 completed Not Available Not Available Not Available meloxicam 7.5 mg tablet TAKE 1 TABLET BY MOUTH EVERY DAY NEEDED FOR PAIN 05/27 completed Not Available Not Available Not Available tamsulosi n 0.4 mg capsule TAKE TWO CAPSULES BY MOUTH EVERY DAY active Not Available Not Available No t Available prednison e 1 mg tablet TAKE 1 TABLET BY MOUTH DAILY OR DIRECTED 10/08 completed Not Available Not Available Not Available ciproflox acin 0.3 % eye drops Instill 2 drop into affected eye four times a day 08/22 completed Not Available Not Available Not Available saw palmetto 160 mg capsule 1 cap twice daily 2020 active Not Available Not Available Not Avai lable dexametha sone 2 mg tablet TAKE 2 MG BY MOUTH TWICE A DAY FOR 3 DAYS (START DAY OF PROCEDUR E, ONCE YOU GET BACK HOME AFTER PROCEDUR E, TAKE WITH FOOD) THEN, 2 MG ONCE A 02/25 completed Not Available Not Available Not Available prednison e 2.5 mg tablet TAKE ONE TABLET BY MOUTH EVERY DAY 05/27 completed Not Available Not Available Not Available hydrocort isone 2.5 % topical cream APPLY SMALL AMOUNT TOPICALL Y TO THE AFFECTED AREA TWICE DAILY NEEDED 11/11 completed Not Available Not Available Not Available zolpidem 5 mg tablet TAKE ONE TABLET BY MOUTH AT BEDTIME NEEDED FOR SLEEP 05/27 completed Not Available Not Available Not Available lorazepam 1 mg tablet TAKE 1 TABLET BY MOUTH 1 HOUR PRIOR TO THE PROCEDUR E AND BRING THE SECOND TABLET WITH YOU TO THE PROCEDUR E IN CASE YOU NEED TO REPEAT A DOSE 02/25 completed Not Available Not Available Not Available levofloxa grecia 500 mg tablet TAKE 1 TABLET BY MOUTH 1 HOUR BEFORE PROCEDUR E 02/25 completed Not Available Not Available Not Available prednisol one 5 mg tablet Take take 3 tablets daily for four weeks, then reduce daily dose by half a tab every four weeks to two daily, reduce daily dose by 1mg every 4-8 weeks then stop 10/31 completed Medicati onName: 'prednis olone tablet 5mg 5mg'; Not Available Not Available Not Available oxycodone 5 mg tablet TAKE 1 TABLET BY MOUTH EVERY 4 TO 6 HOURS NEEDED FOR PAIN. MAXIMUM DAILY DOSE IS 6 TABLET DAILY 05/27 completed Not Available Not Available Not Available ciclopiro x 0.77 % topical suspensio n Apply to face twice a day as needed 01/08 completed Not Available Not Available Not Available escitalop elsie 10 mg tablet Take 1 tablet by mouth once a day 10/31 completed Not Available Not Available Not Available coenzyme Q10 100 mg capsule 1 tablet by mouth once a day 2019 active Not Available Not Available Not Avai lable cyclobenz aprine 5 mg tablet TAKE ONE TO TWO TABLETS BY MOUTH AT BEDTIME FOR BACK PAIN/MUS NAVID SPASMS 02/25 completed Not Available Not Available Not Available ibuprofen take 600mg every 6 hours as needed for pain 08/17 completed Not Available Not Available Not Available Tylenol take 1000mg every 6 hours as needed for pain 08/17 completed Not Available Not Available Not Available CoQ10 SG 100 100 mg-100 unit capsule 1 tab daily 2019 active Not Available Not Available Not Avai lable cholecalc iferol (vitamin D3) 25 mcg (1,000 unit) tablet 1 once a day 2019 active Not Available Not Available Not Avai lable Paxlovid 300 mg (150 mg x 2)-100 mg tablets in a dose pack TAKE THREE TABLETS BY MOUTH TWICE A DAY FOR 5 DAYS 11/11 completed Not Available Not Available Not Available Vitals Date Recorded Body height Body mass index (BMI) Body weight Body temperature Oxygen saturation Oxygen saturation in Arterial blood by Pulse oximetry Heart rate Systolic blood pressure Diastolic blood pressure Provider Name and Address Organization Details Last Updated DateTime 5 176.53 cm 25 kg/m2 13742.8 9 g 97.5 [degF] 99 % 99 % 64 /min 128 mm[Hg] 68 mm[Hg] Heather Mcclure [facility] 12:02:28 Social History Question Answer Notes LastModified by Organization Details LastModified Time Tobacco Smoking Status Former Smoker REBEKAH Morales, [facility] 05/28/2023 09:10:53 Do You Have An Advance Directive? Yes [email or web address] Information not available 05/28/2023 Is Blood Transfusion Acceptable In An Emergency? Yes [email or web address] Information not available 05/28/2023 What Is Your Code Status? Full Code [email or web address] Information not available 05/28/2023 What Type Of Diet Are You Following? REGULAR [email or web address] Information not available 05/28/2023 How Many Days Of Moderate To Strenuous Exercise, Like A Brisk Walk, Did You Do In The Last 7 Days? 7 [email or web address] Information not available 05/28/2023 How Many Times Per Week Do You Exercise? 5-7 Times Per Week [email or web address] Information not available 05/28/2023 When Did You Quit Smoking? 16+yearssinleeann sebastian [email or web address] Information not available 05/28/2023 Date Of Most Recent HSA 05/28/2023 [email or web address] Information not available 05/28/2023 Would You Say That, In General, Your Health Is Very Good [email or web address] Information not available 05/28/2023 How Often Does Anyone, Including Family, Physically Hurt You? Never [email or web address] Information not available 05/28/2023 How Often Does Anyone, Including Family, Insult Or Talk Down To You? Rarely [email or web address] Information not available 05/28/2023 How Often Does Anyone, Including Family, Threaten You With Harm? Never [email or web address] Information not available 05/28/2023 How Often Does Anyone, Including Family, Scream Or Curse At You? Never [email or web address] Information not available 05/28/2023 Within The Past 12 Months, You Worried That Your Food Would Run Out Before You Got Money To Buy More. Never True [email or web address] Information not available 05/28/2023 Within The Past 12 Months, The Food You Bought Just Didn't Last And You Didn't Have Money To Get More. Never True [email or web address] Information not available 05/28/2023 How Hard Is It For You To Pay For The Very Basics Like Food, Housing, Medical Care, And Heating? Would You Say It Is: Not Hard At All Information not available 05/28/2023 In The Past 12 Months, Has Lack Of Reliable Transportation Kept You From Medical Appointments, Meetings, Work Or From Getting Things Needed For Daily Living? No [email or web address] Information not available 05/28/2023 What Is Your Housing Situation Today? I Have Housing. [email or web address] Information not available 05/28/2023 How Often In The Past Year Have You Used Marijuana (including Smoking, Vaping, Dabbing, Or Edibles)? Monthly Or Less [email or web address] Information not available 05/28/2023 How Often In The Past Year Have You Used Prescription Medications That Were Not Prescribed To You? Never [email or web address] Information not available 05/28/2023 How Often In The Past Year Have You Taken Your Own Prescription Medication More Than The Way It Was Prescribed Or For Different Reasons Than Its Intended Purpose? Never [email or web address] Information not available 05/28/2023 How Often In The Past Year Have You Used Other Drugs (for Example, Heroin, Cocaine, Meth, Salvia, Inhalants)? Never [email or web address] Information not available 05/28/2023 Have You Ever Used IV Drugs? No [email or web address] Information not available 05/28/2023 What Matters Most To You? Preventative Medicine [email or web address] Information not available 05/28/2023 During The Past Four Weeks Has Your Physical And Emotional Health Limited Your Social Activities With Family And Friends, Neighbors, Or Groups? Not At All [email or web address] Information not available 05/28/2023 During The Past Four Weeks, Was Someone Available To Help You If You Needed And Wanted Help? (For Example, If You [place] Very Nervous, Lonely, Or Blue; Got Sick And Had To Stay In Bed; Needed Someone To Talk To; Needed Help With Daily Chores; Or Needed Help Just Taking Care Of Yourself.) Yes- Quite A Bit Information not available 05/28/2023 During The Past Four Weeks, What Was The Hardest Physical Activity You Could Do For At Least 2 Minutes? Moderate Information not available 05/28/2023 Can You Get To Places Out Of Walking Distance Without Help? (For Example, Can You Travel Alone On Buses Or Taxis, Or Drive Your Own Car?) Yes [email or web address] Information not available 05/28/2023 Can You Go Shopping For Groceries Or Clothes Without Someone? s Help? Yes [email or web address] Information not available 05/28/2023 Can You Prepare Your Own Meals? Yes [email or web address] Information not available 05/28/2023 Can You Do Your Housework Without Help? Yes [email or web address] Information not available 05/28/2023 Because Of Any Health Problems, Do You Need The Help Of Another Person With Your Personal Care Needs Such As Eating, Bathing, Dressing, Or Getting Around The House? No [email or web address] Information not available 05/28/2023 Can You Handle Your Own Money Without Help? Yes [email or web address] Information not available 05/28/2023 Are You Having Difficulties Driving Your Car? No [email or web address] Information not available 05/28/2023 Do You Always Fasten Your Seat Belt When You Are In A Car? Yes- Usually [email or web address] Information not available 05/28/2023 How Often During The Past Four Weeks Have You Been Bothered By Any Of The Following Problems? Falling Or Dizzy When Standing Up? Never Information not available 05/28/2023 Sexual Problems? Seldom [email or web address] Informat ion not available 05/28/2023 Trouble Eating Well? Never Information not available 05/28/2023 Teeth Or Denture Problems? Never [email or web address] Information not available 05/28/2023 Problems Using The Telephone? Never [email or web address] Information not available 05/28/2023 Tiredness Or Fatigue? Seldom [email or web address] Information not available 05/28/2023 Have You Had 2 Or More Falls Or Sustained An Injury With A Fall In The Last Year? No Information not available 05/28/2023 Do You Have Difficulty With Walking Or Balance? No [email or web address] Information not available 05/28/2023 Do You Currently Use A Hearing Device? No [email or web address] Information not available 05/28/2023 Do You Currently Have Any Trouble With Your Vision? No Wears Glasses, But No Changes Or Concerns Information not available 05/28/2023 Do You Exercise For About 20 Minutes Three Or More Days A Week? Yes- Most Of The Time Information not available 05/28/2023 Are There Any Safety Concerns In Your Home (see Attached CDC Pamphlet)? No [email or web address] Information not available 05/28/2023 How Often Do You Have Trouble Taking Medicines The Way You Have Been Told To Take Them? I Always Take Them As Prescribed [email or web address] Information not available 05/28/2023 How Confident Are You That You Can Control And Manage Most Of Your Health Problems? Very Confident [email or web address] Information not available 05/28/2023 Do You Currently Have Any Difficulty With Your Hearing? No [email or web address] Information not available 05/28/2023 Date Of Most Recent SBINS 05/28/2023 [email or web address] Information not available 05/28/2023 What Was The Date Of Your Most Recent Tobacco Screening? 02/26/2024 [email or web address] Information not available 02/26/2024 What Is Your Current Pack Years? 20-29packyears [email or web address] Information not available 05/28/2023 What Types Of Sporting Activities Do You Participate In? Walking, Tennis, Yard Work And Carpentry, Farm Work [email or web address] Information not available 05/28/2023 Has Tobacco Cessation Counseling Been Provided? No [email or web address] Information not available 11/12/2023 Do You Have Any Dietary Restrictions? No [email or web address] Information not available 05/28/2023 Do You Or Have You Ever Used Any Other Forms Of Tobacco Or Nicotine? No [email or web address] Information not available 05/28/2023 Sex: Male Functional Status Question Answer Note LastModified by Organization D etails LastModified Time What is your exercise level? Moderate [email or web address] Information not available 05/28/2023 Mental Status None recorded. Family History Relationship Description Onset Age of this Age Resolved Age Notes LastModified by Organization Details LastModified Time Mother Family history of malignant neoplasm stomac h cancer [email or web address] Not available 12/28/2022 03:57:32 Maternal Grandfather Family history of malignant neoplasm of lung [email or web address] Not available 2022 03:57:32 Father Family history of heart failure [email or web address] Not available 2022 03:57:32 Paternal Grandfather Family history of disorder of lung [email or web address] Not available 2022 03:57:32 Brother Pancreatitis [email or web address] Not av ailable 05/28/2023 09:09:50 Notes:*Problem: father- yoana ntia passed August 2021 mother: skin cancer, passed 2000 70, 73: sister HTN, brother healthy Medical History No medical history recorded. Immunizations Vaccine Type Date Status Note Provider Nam e and Address Organization Details Recorded Time Influenza, high-dose, trivalent, PF 4 completed JORGE PFEIFFER MD [address], [place], [address], [facility] 12/02/2023 15:57:00 Td (adult), 2 Lf tetanus toxoid, preservative free, adsorbed 9 completed Not Available [facility] 12/28/2022 06:23:50 Influenza, split virus, quadrivalent, PF 9 completed Not Available [facility] 12/28/2022 06:23:51 Influenza, split virus, quadrivalent, preservative 8 completed Not Available [facility] 12/28/2022 06:23:51 Influenza, split virus, quadrivalent, preservative 8 completed Not Available [facility] 12/28/2022 06:23:51 zoster recombinant 0 completed Not Available [facility] 12/28/2022 06:23:51 zoster recombinant 0 completed Not Available [facility] 12/28/2022 06:23:51 Influenza, high-dose, quadrivalent, PF 2 completed Not Available [facility] 12/28/2022 06:23:51 COVID-19, mRNA, LNP-S, PF, 100 mcg/0.5mL dose or 50 mcg/0.25mL dose 1 completed Not Available [facility] 12/28/2022 06:23:51 COVID-19, mRNA, LNP-S, PF, 100 mcg/0.5mL dose or 50 mcg/0.25mL dose 1 completed Not Available [facility] 12/28/2022 06:23:51 COVID-19, mRNA, LNP-S, PF, 100 mcg/0.5mL dose or 50 mcg/0.25mL dose 1 completed Not Available [facility] 12/28/2022 06:23:51 SARS-COV-2 (COVID-19) vaccine, UNSPECIFIED 2 completed Not Available [facility] 12/28/2022 06:23:52 Pneumococcal conjugate PCV20, polysaccharide CHW708 conjugate, adjuvant, PF 3 completed Not Available [facility] 12/28/2022 06:23:52 pneumococcal polysaccharide PPV23 1 completed Not Available [facility] 12/28/2022 06:23:52 influenza, unspecified formulation 1 completed Not Available [facility] 12/28/2022 06:23:52 Influenza, high-dose, quadrivalent, PF 3 completed Not Available [facility] 03/01/2023 05:33:20 Past Encounters Encounter ID Performer Location Encounter Start Date Encounter Closed Date Diagnosis/Indication Diagnosis SNOMED-CT Code Diagnosis ICD10 Code Diagnosis Note [id number] JORGE PFEIFFER MD [address] [address] 02/26/2024 11:56:17 02/26/2024 12:30:53 Chronic cough 29467631 R05.3 - Present for 8-9 months, no clear trigger- Occasional mucus production - Plan:- Order chest x-ray- Follow up on results, consider further evaluation if needed Mass of neck 980976750 R 22.1 - Present for a couple of months- Lymph node vs. cyst vs. malignancy .- Possibly increasing in size, non-painfu l- Plan:- Order neck ultrasound - Order complete blood count (CBC)- Follow up on results, consider further evaluation if needed Infrapatel lar bursitis of right knee 827378538 M70.51 - History of knee surgery- On-going bursitis.- No signs of infection. - Plan:- Recommend Neoprene knee brace- Advise NSAIDs for inflammati on and pain- Consider orthopedic referral if symptoms persist or worsen Health Concerns Section Related Observation LastModified by Organization Detai ls LastModified Time None Recorded Concern Status LastModified by Organization Details LastModified Time None Recorded Payers Encounter Date Sequence Insurance Name Policy Number Policy Mendez Covered Member ID Mendez Member ID Guarantor Name 02/26/2024 2 [employer] - [facility] [employer] Break30 - PLAN F (MEDICARE SUPPLEMENT) Rolando Brown [id number] Rolando Brown 02/26/2024 1 MED[place]: [facility] Rolando Brown [id number] Rolando Brown Notes Date Note Type Note Provider Name and Address Organization Details Recorded Time 02/26/2024 text/html CC: Persistent cough, neck lump, R knee swelling Rolando presents with a persistent cough that has been present for approximately eight to nine months. The cough is inconsistent and does not occur at specific times or under certain circumstances. He reports occasionally coughing up a small amount of phlegm. It feels like the cough originates in the throat. Rolando's partner has expressed concern about his cough, prompting him to seek medical attention. In addition to the cough, the patient has noticed a lump in his right neck for the past couple of months. He reports that it may have grown slightly larger recently, but it is not painful. Rolando is currently undergoing radiation treatment for prostate cancer. Rolando also reports having a sore neck for about two months, which he believes may have been exacerbated by playing racquetball. He experiences pain when looking down and feels discomfort in the lower part of his neck. Furthermore, he has a history of right knee issues, which causes occasional wobbling and discomfort. The patient has had multiple surgeries on the knee, including an ACL reconstruction. More recently, he has had swelling below the knee, so he wonders if it's worth draining it. The patient denies any recent colds or flus, stuffy nose, post-nasal drip, or heartburn. He has stopped drinking alcohol since September and is not a regular user of medications. However, he plans to start taking Aleve for his inflamed prostate, which may also help with his other symptoms. JORGE PFEIFFER MD [address], [place], [address], [facility]. 02/26/2024 16:20:14
--- OUTSIDE RECORDS SUMMARY | 2024-02-27 10:46 | XMS_ITS | Encounter Summary ---
Author Organization [facility] Address [facility] [place] [address] Care Team Providers Care Client Services Vice President Name Role Phone Jeff Pfeiffer MD Primary Care Provider [phone] Encounter Details Date Type Department Care Team (Late st Contact Info) Description 10/28/2023 Telephone Radiation Oncology at [address] [phone] Jacklyn Ignacio, RN Social History Tobacco Use Types Packs/Day Years Used Date Smoking Tobacco: Former Cigarettes Q uit: 1989 Smokeless Tobacco: Never Alcohol Use Standard Drinks/Week Comments Yes 15 (1 standard drink = 0.6 oz pu re alcohol) [facility] Utilities Answer Date Recorded In the past [...] place to sleep or slept in a nursing home (including now)? No 06/19/2023 Sex and Gender Information Value Date Recorded Sex Assigned at Not on file Gender Identity Not on file Sexual Orientation Not on file Travel History Travel Start Travel End [facility] 12/28/2023 01/27/2024 documented as of this encounter Miscellaneous Notes * Telephone Encounter - Jacklyn Ignacio RN - 10/28/2023 5:51 PM EDT Back spasms, cramping feeling like a rick horse started gradually last Saturday. Located about 4-5inches distal to scapula extending to lower lumbar. More pronounced lateral vs midline. Denies any radiating discomfort or numbness to LLE. Activity makes it worse rating about 7/10 and rest,stillness better rating at 0/10. He has taken tylenol 1000 mg twice daily yesterday and found this to help alleviate the discomfort. He did not take any this morning, went to work and found in hindsight that it had been helpful so has taken tylenol 1000 mg after work today. Also has massage ball that has been helpful in the moment. He wonders if related to lupron dose 10/18/23. I instructed that muscle pain can possibly be a side effect of lupron but that I will update Dr. Berumen regarding his new symptom and call back with his advice. In the meantime I did recommend continuing to use tylenol prn per package instructions and that he can continue to use massage ball prn. He expressed understanding of these instructions and is agreeable to the plan. * Telephone Encounter - Jacklyn Ignacio RN - 10/28/2023 5:51 PM EDT ----- Message from Adia Angulo sent at 10/28/2023 11:59 AM EDT ----- Rolando called in with back spasm starting yesterday, he is wondering if this could be a side effectfrom his last infusion on 10/17 Best call back number [phone] documented in this encounter Plan of Treatment Upcoming Encounters Date Type Department Care Team (Late st Contact Info) Description 02/28/2024 9:15 AM EST Scheduled View Only Radiation Oncology at [address] [phone] 02/28/2024 9:25 AM EST Office Visit Radiation Oncology at [address] [phone] Leroy Berumen MD [address] [place] [address] [place] [address] 03/02/2024 9:30 AM EST Scheduled View Only Radiation Oncology at [address] [address] 03/03/2024 9:15 AM EST Scheduled View Only Radiation Oncology at [address] [phone] 03/04/2024 9:45 AM EST Scheduled View Only Radiation Oncology at [address] [address] 03/05/2024 9:30 AM EST Scheduled View Only Radiation Oncology at [address] [address] 03/06/2024 8:30 AM EST Infusion Hematology Oncology at [address] [address] 03/06/2024 9:15 AM EST Scheduled View Only Radiation Oncology at [address] [phone] 03/09/2024 9:15 AM EST Scheduled View Only Radiation Oncology at [address] [address] 03/10/2024 9:15 AM EST Scheduled View Only Radiation Oncology at [address] [address] 03/11/2024 9:15 AM EST Scheduled View Only Radiation Oncology at [address] [address] 03/12/2024 9:15 AM EST Scheduled View Only Radiation Oncology at [address] [address] 03/13/2024 9:15 AM EST Scheduled View Only Radiation Oncology at [address] [address] 03/16/2024 9:15 AM EST Scheduled View Only Radiation Oncology at [address] [address] 03/17/2024 9:15 AM EST Scheduled View Only Radiation Oncology at [address] [phone] 03/18/2024 9:15 AM EST Scheduled View Only Radiation Oncology at [address] [address] 03/19/2024 9:15 AM EST Scheduled View Only Radiation Oncology at [address] [address] 03/20/2024 9:15 AM EST Scheduled View Only Radiation Oncology at [address] [phone] 03/23/2024 9:15 AM EST Scheduled View Only Radiation Oncology at [address] [address] 03/24/2024 9:30 AM EST Scheduled View Only Radiation Oncology at [address] [phone] documented as of this encounter Visit Diagnoses Not on filedocumented in this encounter Care Teams Client Services Vice President Relationship Specialty Start Date End Date Jeff Pfeiffer MD [address] [place] [address] PCP - General Family Medicine 03/12/23 documented as of this encounter
--- OUTSIDE RECORDS SUMMARY | 2024-02-27 10:46 | XMS_ITS | Encounter Summary ---
Author Organization [facility] [place] [address] Care Team Providers Care Quality Improvement Engineer Name Role Phone Jeff Pfeiffer MD Primary Care Provider [phone] Encounter Details Date Type Department Care Team ([facility] Contact Info) Description 05/30/2023 Telephone Radiation Oncology at [address] [phone] Melba Soler Social History Tobacco [...] Upcoming Encounters Date Type Department Care Team ([facility] Contact Info) Description 02/28/2024 9:15 AM EST Scheduled View Only Radiation Oncology at [address] [address] 02/28/2024 9:25 AM EST Office Visit Radiation Oncology at [address] [phone] Leroy Berumen MD [address] [place] [address] [place] [address] 03/02/2024 9:30 AM EST Scheduled View Only Radiation Oncology at [address] [address] 03/03/2024 9:15 AM EST Scheduled View Only Radiation Oncology at [address] [address] 03/04/2024 9:45 AM EST Scheduled View Only Radiation Oncology at [address] [address] 03/05/2024 9:30 AM EST Scheduled View Only Radiation Oncology at [address] [phone] 03/06/2024 8:30 AM EST Infusion Hematology Oncology at [address] [address] 03/06/2024 9:15 AM EST Scheduled View Only Radiation Oncology at [address] [address] 03/09/2024 9:15 AM EST Scheduled View Only Radiation Oncology at [address] [address] 03/10/2024 9:15 AM EST Scheduled View Only Radiation Oncology at [address] [phone] 03/11/2024 9:15 AM EST Scheduled View Only Radiation Oncology at [address] [address] 03/12/2024 9:15 AM EST Scheduled View Only Radiation Oncology at [address] [address] 03/13/2024 9:15 AM EST Scheduled View Only Radiation Oncology at [address] [address] 03/16/2024 9:15 AM EST Scheduled View Only Radiation Oncology at [address] [address] 03/17/2024 9:15 AM EST Scheduled View Only Radiation Oncology at [address] [address] 03/18/2024 9:15 AM EST Scheduled View Only Radiation Oncology at [address] [place] [address] 03/19/2024 9:15 AM EST Scheduled View Only Radiation Oncology at [address] [place] [address] 03/20/2024 9:15 AM EST Scheduled View Only Radiation Oncology at [address] [address] 03/23/2024 9:15 AM EST Scheduled View Only Radiation Oncology at [address] [place] [address] 03/24/2024 9:30 AM EST Scheduled View Only Radiation Oncology at [address] [address] documented as of this encounter Visit Diagnoses Not on filedocumented in this encounter Care Teams Quality Improvement Engineer Relationship Specialty Start Date End Date Jeff Pfeiffer MD [address] [place] [address] PCP - General Family Medicine 03/12/23 documented as of this encounter
--- OUTSIDE RECORDS SUMMARY | 2024-02-27 10:46 | XMS_ITS | Referral Summary ---
Author Organization [facility] Address [address] [place] [address] Care Team Providers Care Chainstitch Felled Seam Operator Name Role Phone Jeff Pfeiffer MD [...] - Plan of Treatment Not on file Insurance [employer] MEDICARE [place] Care Teams Chainstitch Felled Seam Operator Relationship Specialty Start Date End Date Jeff Pfeiffer MD [address] [place] [address] [address] [place], [place] [address] PCP - General 08/27/22
--- OUTSIDE RECORDS SUMMARY | 2024-02-27 10:46 | XMS_ITS | Encounter Summary ---
Author Organization [facility] Address [address] [place] [address] Care Team Providers Care Folder Seamer Name Role Phone Jeff Pfeiffer MD Primary Care Provide r Encounter Details Date Type Department Care Team (Late st Contact Info) Description 09/07/2022 Lab Requisition [facility] Pathology & Laboratory Medicine - [facility] [address] [place] [address] Outr Resulting Lab, Provider Social History Tobacco [...] Lyme Ab Negative Negative 09/10/2022 9:11 EDT [facility] Blood VENOUS BLOOD / Unknown 09/06/2022 15:10 EDT 09/07/2022 19:27 EDT us Provider Outr Resulting Lab IMMUNOLOGY AND SEROL OGY ORDERABLES Final Result [facility] [address] [place] [address] documented in this encounter Visit Diagnoses Not on filedocumented in this encounter Care Teams Folder Seamer Relationship Specialty Start Date End Date Jeff Pfeiffer MD [address] [address] PCP - General 08/27/22 documented as of this encounter
--- OUTSIDE RECORDS SUMMARY | 2024-02-27 10:46 | XMS_ITS | Encounter Summary ---
Author Organization [facility] Address [facility] [address] [place] [id number] Care Team Providers Care Tire Vulcanizer Name Role Phone Jeff Pfeiffer MD Primary Care Provider [phone] Reason for Visit * Reason Onset Date Comments Results 06/26/2023 PSA Encounter Details Date Type Department Care Team (Late st Contact Info) Description 06/26/2023 Telephone Radiation Oncology at [address] [phone] Leesa Randall, RN Results (PSA) Social History Tobacco Use Types Packs/Day Years Used Date Smoking Tobacco: Former Cigarettes Q uit: 1989 Smokeless Tobacco: Never Alcohol Use Standard Drinks/Week Comments Yes 15 (1 standard drink = 0.6 oz pu re alcohol) [facility] Utilities Answer Date Recorded In [...] file Travel History Travel Start Travel End [facility] 12/28/2023 01/27/2024 documented as of this encounter Miscellaneous Notes * Telephone Encounter - Leesa Randall RN - 06/26/2023 11:31 AM EDT RN call to Rolando Brown to notify him of his recent PSA [...] Scheduled View Only Radiation Oncology at [address] [phone] 02/28/2024 9:25 AM EST Office Visit Radiation Oncology at [address] [phone] Leroy Berumen MD [address] [place] [address] [place] [address] 03/02/2024 9:30 AM EST Scheduled View Only Radiation Oncology at [address] [address] 03/03/2024 9:15 AM EST Scheduled View Only Radiation Oncology at [address] [address] 03/04/2024 9:45 AM EST Scheduled View Only Radiation Oncology at [address] [address] 03/05/2024 9:30 AM EST Scheduled View Only Radiation Oncology at [address] [address] 03/06/2024 8:30 AM EST Infusion Hematology Oncology at [address] [address] 03/06/2024 9:15 AM EST Scheduled View Only Radiation Oncology at [address] [address] 03/09/2024 9:15 AM EST Scheduled View Only Radiation Oncology at [address] [address] 03/10/2024 9:15 AM EST Scheduled View Only Radiation Oncology at [address] [address] 03/11/2024 9:15 AM EST Scheduled View Only Radiation Oncology at [address] [address] 03/12/2024 9:15 AM EST Scheduled View Only Radiation Oncology at [address] [address] 03/13/2024 9:15 AM EST Scheduled View Only Radiation Oncology at [address] [address] 03/16/2024 9:15 AM EST Scheduled View Only Radiation Oncology at [address] [address] 03/17/2024 9:15 AM EST Scheduled View Only Radiation Oncology at [address] [address] 03/18/2024 9:15 AM EST Scheduled View Only Radiation Oncology at [address] [address] 03/19/2024 9:15 AM EST Scheduled View Only Radiation Oncology at [address] [address] 03/20/2024 9:15 AM EST Scheduled View Only Radiation Oncology at [address] [address] 03/23/2024 9:15 AM EST Scheduled View Only Radiation Oncology at [address] [address] 03/24/2024 9:30 AM EST Scheduled View Only Radiation Oncology at [address] [address] documented as of this encounter Visit Diagnoses Not on filedocumented in this encounter Care Teams Tire Vulcanizer Relationship Specialty Start Date End Date Jeff Pfeiffer MD [address] [place] [address] PCP - General Family Medicine 03/12/23 documented as of this encounter
--- OUTSIDE RECORDS SUMMARY | 2024-02-27 10:46 | XMS_ITS | Encounter Summary ---
Author Organization [facility] Address [facility] [place] [address] Care Team Providers Care Bank Teller Name Role Phone Jeff Pfeiffer MD Primary Care Provider [phone] Encounter Details Date Type Department Care Team (Late st Contact Info) Description 10/29/2023 Telephone Radiation Oncology at [address] [address] Jacklyn Ignacio, RN Social History Tobacco Use Types Packs/Day Years Used Date Smoking Tobacco: Former Cigarettes Q uit: 1989 Smokeless Tobacco: Never Alcohol Use Standard Drinks/Week Comments Yes 15 (1 standard drink = 0.6 oz pu re alcohol) [facility] Utilities Answer Date Recorded In the [...] Telephone Encounter - Jacklyn Ignacio RN - 10/29/2023 10:55 AM EDT Spoke with patient to advise that Dr. Berumen does not feel that back spasms are related to lupron or prostate cancer. Rolando states that he is thankful for this information. He states that he has been taking acetaminophen to 3000 mg/day which is helpful so will continue to do so and reach out to his PCP if condition does not resolve. documented in this encounter Plan of Treatment Upcoming Encounters Date Type Department Care Team (Late st Contact Info) Description 02/28/2024 9:15 AM EST Scheduled View Only Radiation Oncology at [address] [phone] 02/28/2024 9:25 AM EST Office Visit Radiation Oncology at [address] [address] Leroy Berumen MD [address] [place] [address] [place] [address] 03/02/2024 9:30 AM EST Scheduled View Only Radiation Oncology at [address] [address] 03/03/2024 9:15 AM EST Scheduled View Only Radiation Oncology at [address] [address] 03/04/2024 9:45 AM EST Scheduled View Only Radiation Oncology at [address] [address] 03/05/2024 9:30 AM EST Scheduled View Only Radiation Oncology at [address] [address] 03/06/2024 8:30 AM EST Infusion Hematology Oncology at [address] [address] 03/06/2024 9:15 AM EST Scheduled View Only Radiation Oncology at [address] [address] 03/09/2024 9:15 AM EST Scheduled View Only Radiation Oncology at [address] [address] 03/10/2024 9:15 AM EST Scheduled View Only Radiation Oncology at [address] [address] 03/11/2024 9:15 AM EST Scheduled View Only Radiation Oncology at [address] [address] 03/12/2024 9:15 AM EST Scheduled View Only Radiation Oncology at [address] [address] 03/13/2024 9:15 AM EST Scheduled View Only Radiation Oncology at [address] [address] 03/16/2024 9:15 AM EST Scheduled View Only Radiation Oncology at [address] [address] 03/17/2024 9:15 AM EST Scheduled View Only Radiation Oncology at [address] [address] 03/18/2024 9:15 AM EST Scheduled View Only Radiation Oncology at [address] [address] 03/19/2024 9:15 AM EST Scheduled View Only Radiation Oncology at [address] [address] 03/20/2024 9:15 AM EST Scheduled View Only Radiation Oncology at [address] [address] 03/23/2024 9:15 AM EST Scheduled View Only Radiation Oncology at [address] [address] 03/24/2024 9:30 AM EST Scheduled View Only Radiation Oncology at [address] [address] documented as of this encounter Visit Diagnoses Not on filedocumented in this encounter Care Teams Bank Teller Relationship Specialty Start Date End Date Jeff Pfeiffer MD [address] [place] [address] PCP - General Family Medicine 03/12/23 documented as of this encounter
--- OUTSIDE RECORDS SUMMARY | 2024-02-27 10:46 | XMS_ITS | Encounter Summary ---
Author Organization [facility] Address [address] [place] [address] Care Team Providers Care Crop Specialist Name Role Phone Jeff Pfeiffer MD Primary Care Provide r Encounter Details Date Type Department Care Team (Late st Contact Info) Description 01/24/2023 Lab Requisition [facility] Pathology & Laboratory Medicine - [facility] [address] [place] [address] Outr Resulting Lab, Provider Social History Tobacco [...] PSA 8.6(H) <=4.5 ng/mL 01/24/2023 20:10 EST [facility] Blood VENOUS BLOOD / Unknown 01/24/2023 9:20 EST 01/24/2023 18:26 EST Narrative [facility] - 01/24/2023 20:10 EST NOTE: Serum PSA concentration should not be interpreted as absolute evidence for the presence or absence of malignant disease. Assayed on Siemens ADVIA Centaur XPT using chemiluminescent technology.??Values obtained by using different assay methods cannot be used interchangeably. us Provider Outr Resulting Lab CHEMISTRY & BLOOD GA S ORDERABLES Final Result [facility] [address] [place] [address] documented in this encounter Visit Diagnoses Not on filedocumented in this encounter Care Teams Crop Specialist Relationship Specialty Start Date End Date Jeff Pfeiffer MD [address] [place] [address] PCP - General 08/27/22 documented as of this encounter
--- OUTSIDE RECORDS SUMMARY | 2024-02-27 10:46 | XMS_ITS | Encounter Summary ---
Author Organization [facility] Address [facility] [place] [address] Care Team Providers Care Rooming House Operator Name Role Phone Jeff Pfeiffer MD Primary Care Provider [phone] Encounter Details Date Type Department Care Team (Late st Contact Info) Description 07/18/2023 8:30 AM EDT Office Visit Radiation Oncology at [address] [address] Leroy Berumen MD [address] [place] [address] DR RADIATION ONCOLOGY [place], [place] [id number] Malignant neoplasm of prostate Social History Tobacco Use Types Packs/Day Years Used Date Smoking Tobacco: Former Cigarettes Q uit: 1989 Smokeless Tobacco: Never Alcohol Use Standard Drinks/Week Comments Yes 15 (1 standard drink = 0.6 oz pu re alcohol) [facility] Utilities Answer Date Recorded In the past 12 months has e elicit, gas, oil, or water [employer] threatened to shut off services in your [...] file Travel History Travel Start Travel End [facility] 12/28/2023 01/27/2024 documented as of [...] Follow Up Note Leroy Berumen MD, [place] [facility] PATIENT IDENTIFICATION: PATIENT NAME: Rolando [...] up this summer and would like to [place] back after returning from [facility] in late September. I affirmed my support [...] EST Scheduled View Only Radiation Oncology at [address] [phone] 02/28/2024 9:25 AM EST Office Visit Radiation Oncology at [address] [address] Leroy Berumen MD [address] [place] [address] [place] [address] 03/02/2024 9:30 AM EST Scheduled View Only Radiation Oncology at [address] [address] 03/03/2024 9:15 AM EST Scheduled View Only Radiation Oncology at [address] [address] 03/04/2024 9:45 AM EST Scheduled View Only Radiation Oncology at [address] [address] 03/05/2024 9:30 AM EST Scheduled View Only Radiation Oncology at [address] [address] 03/06/2024 8:30 AM EST Infusion Hematology Oncology at [address] [address] 03/06/2024 9:15 AM EST Scheduled View Only Radiation Oncology at [address] [address] 03/09/2024 9:15 AM EST Scheduled View Only Radiation Oncology at [address] [address] 03/10/2024 9:15 AM EST Scheduled View Only Radiation Oncology at [address] [address] 03/11/2024 9:15 AM EST Scheduled View Only Radiation Oncology at [address] [address] 03/12/2024 9:15 AM EST Scheduled View Only Radiation Oncology at [address] [address] 03/13/2024 9:15 AM EST Scheduled View Only Radiation Oncology at [address] [address] 03/16/2024 9:15 AM EST Scheduled View Only Radiation Oncology at [address] [address] 03/17/2024 9:15 AM EST Scheduled View Only Radiation Oncology at [address] [address] 03/18/2024 9:15 AM EST Scheduled View Only Radiation Oncology at [address] [address] 03/19/2024 9:15 AM EST Scheduled View Only Radiation Oncology at [address] [address] 03/20/2024 9:15 AM EST Scheduled View Only Radiation Oncology at [address] [address] 03/23/2024 9:15 AM EST Scheduled View Only Radiation Oncology at [address] [address] 03/24/2024 9:30 AM EST Scheduled View Only Radiation Oncology at [address] [address] documented as of this encounter Visit Diagnoses Diagnosis Malignant neoplasm of prostate documented in this encounter Care Teams Rooming House Operator Relationship Specialty Start Date End Date Jeff Pfeiffer MD [address] [place] [address] PCP - General Family Medicine 03/12/23 documented as of this encounter
--- OUTSIDE RECORDS SUMMARY | 2024-02-27 10:46 | XMS_ITS | Encounter Summary ---
Author Organization [facility] Address [facility] [place] [address] Care Team Providers Care Typewriter Operator Automatic Name Role Phone Jeff Pfeiffer MD Primary Care Provider [phone] Encounter Details Date Type Department Care Team (Latest Contact Info) Description 10/18/2023 Travel Social History Tobacco Use Types Packs/Day Years Used Date Smoking Tobacco: Former Cigarettes Q uit: 1989 Smokeless Tobacco: Never Alcohol Use Standard Drinks/Week Comments Yes 15 (1 standard drink = 0.6 oz pu re alcohol) [facility] Utilities Answer Date Recorded In the past [...] file Travel History Travel Start Travel End [facility] 12/28/2023 01/27/2024 documented as of this encounter Plan of Treatment Upcoming Encounters Date Type Department Care Team (Late st Contact Info) Description 02/28/2024 9:15 AM EST Scheduled View Only Radiation Oncology at [address] [address] 02/28/2024 9:25 AM EST Office Visit Radiation Oncology at [address] [address] Leroy Berumen MD [address] [place] [address] [place] [address] 03/02/2024 9:30 AM EST Scheduled View Only Radiation Oncology at [address] [address] 03/03/2024 9:15 AM EST Scheduled View Only Radiation Oncology at [address] [address] 03/04/2024 9:45 AM EST Scheduled View Only Radiation Oncology at [address] [address] 03/05/2024 9:30 AM EST Scheduled View Only Radiation Oncology at [address] [address] 03/06/2024 8:30 AM EST Infusion Hematology Oncology at [address] [address] 03/06/2024 9:15 AM EST Scheduled View Only Radiation Oncology at [address] [address] 03/09/2024 9:15 AM EST Scheduled View Only Radiation Oncology at [address] [address] 03/10/2024 9:15 AM EST Scheduled View Only Radiation Oncology at [address] [address] 03/11/2024 9:15 AM EST Scheduled View Only Radiation Oncology at [address] [address] 03/12/2024 9:15 AM EST Scheduled View Only Radiation Oncology at [address] [address] 03/13/2024 9:15 AM EST Scheduled View Only Radiation Oncology at [address] [address] 03/16/2024 9:15 AM EST Scheduled View Only Radiation Oncology at [address] [address] 03/17/2024 9:15 AM EST Scheduled View Only Radiation Oncology at [address] [address] 03/18/2024 9:15 AM EST Scheduled View Only Radiation Oncology at [address] [address] 03/19/2024 9:15 AM EST Scheduled View Only Radiation Oncology at [address] [address] 03/20/2024 9:15 AM EST Scheduled View Only Radiation Oncology at [address] [address] 03/23/2024 9:15 AM EST Scheduled View Only Radiation Oncology at [address] [address] 03/24/2024 9:30 AM EST Scheduled View Only Radiation Oncology at [address] [address] documented as of this encounter Visit Diagnoses Not on filedocumented in this encounter Care Teams Typewriter Operator Automatic Relationship Specialty Start Date End Date Jeff Pfeiffer MD [address] [place] [address] PCP - General Family Medicine 03/12/23 documented as of this encounter
--- OUTSIDE RECORDS SUMMARY | 2024-02-27 10:46 | XMS_ITS | Encounter Summary ---
Author Organization [facility] Address [facility] [place] [address] Care Team Providers Care Cardiac Nurse Specialist Name Role Phone Jeff Pfeiffer MD Primary Care Provider [phone] Encounter Details Date Type Department Care Team (Latest Contact Info) Description 11/15/2023 Travel Social History Tobacco Use Types Packs/Day Years Used Date Smoking Tobacco: Former Cigarettes Q uit: 1989 Smokeless Tobacco: Never Alcohol Use Standard Drinks/Week Comments Yes 15 (1 standard drink = 0.6 oz pu re alcohol) [facility] Utilities Answer Date Recorded In the past [...] Scheduled View Only Radiation Oncology at [address] [address] 02/28/2024 9:25 AM EST Office Visit Radiation Oncology at [address] [address] Leroy Berumen MD [address] [place] [address] DR [place] [address] 03/02/2024 9:30 AM EST Scheduled View Only Radiation Oncology at [address] [address] 03/03/2024 9:15 AM EST Scheduled View Only Radiation Oncology at [address] [address] 03/04/2024 9:45 AM EST Scheduled View Only Radiation Oncology at [address] [address] 03/05/2024 9:30 AM EST Scheduled View Only Radiation Oncology at [address] [address] 03/06/2024 8:30 AM EST Infusion Hematology Oncology at [address] [address] 03/06/2024 9:15 AM EST Scheduled View Only Radiation Oncology at [address] [address] 03/09/2024 9:15 AM EST Scheduled View Only Radiation Oncology at [address] [address] 03/10/2024 9:15 AM EST Scheduled View Only Radiation Oncology at [address] [address] 03/11/2024 9:15 AM EST Scheduled View Only Radiation Oncology at [address] [address] 03/12/2024 9:15 AM EST Scheduled View Only Radiation Oncology at [address] [address] 03/13/2024 9:15 AM EST Scheduled View Only Radiation Oncology at [address] [address] 03/16/2024 9:15 AM EST Scheduled View Only Radiation Oncology at [address] [address] 03/17/2024 9:15 AM EST Scheduled View Only Radiation Oncology at [address] [address] 03/18/2024 9:15 AM EST Scheduled View Only Radiation Oncology at [address] [address] 03/19/2024 9:15 AM EST Scheduled View Only Radiation Oncology at [address] [address] 03/20/2024 9:15 AM EST Scheduled View Only Radiation Oncology at [address] [address] 03/23/2024 9:15 AM EST Scheduled View Only Radiation Oncology at [address] [address] 03/24/2024 9:30 AM EST Scheduled View Only Radiation Oncology at [address] [address] documented as of this encounter Visit Diagnoses Not on filedocumented in this encounter Care Teams Cardiac Nurse Specialist Relationship Specialty Start Date End Date Jeff Pfeiffer MD [address] [place] [address] PCP - General Family Medicine 03/12/23 documented as of this encounter
--- OUTSIDE RECORDS SUMMARY | 2024-02-27 10:46 | XMS_ITS | Encounter Summary ---
Author Organization [facility] Address [address] [place] [address] Care Team Providers Care Social Worker Delinquency Prevention Name Role Phone Jeff Pfeiffer MD Primary Care Provide r Encounter Details Date Type Department Care Team (Late st Contact Info) Description 04/19/2023 Lab Requisition [facility] Pathology & Laboratory Medicine - [facility] [address] [place] [address] Derrick Blue MD [address] [place] [address] [place] [address] Elevated prostate specific antigen (PSA) [...] management options, if applicable. 04/25/2023 6:14 EST [facility] Final Diagnosis A. 1. PROSTATE, RIGHT BASE LATERAL, BIOPSY: - Benign prostatic glands and stroma. B. 2. PROSTATE, RIGHT BASE MEDIAL, BIOPSY: - Benign prostatic glands and stroma. C. 3. PROSTATE, RIGHT MID LATERAL, BIOPSY: - Prostatic tissue with focal atrophy. D. 4. PROSTATE, RIGHT MID MEDIAL, BIOPSY: - Prostatic adenocarcinoma, involving 5% (0.7 mm) of 1/1 core. - Lawrence Score: 3 + 3 = 6 (grade group 1). - Core: 15.2 mm E. 5. PROSTATE, RIGHT APEX LATERAL, BIOPSY: - Prostatic adenocarcinoma, involving 30% (4.4 mm) of 1/1 core. See comment. - Global Emely Score: 3 + 3 = 6 (grade group 1). - Core: 14.0 mm F. 6. PROSTATE, RIGHT APEX MEDIAL, BIOPSY: - Prostatic adenocarcinoma, involving 20% (3.3 mm) of 1/1 core. See comment. - Global Lawrence Score: 3 + 4 = 7 (grade group 2), 5% Emely pattern 4. - Core: 15.0 mm G. [...] 1.5% (0.2 mm) of 1/1 core. - Emely Score: 3 + 3 = 6 (grade group 1). - Core: 14.1 mm L. 12. PROSTATE, LEFT APEX MEDIAL, BIOPSY: - Several small foci of atypical glands. 04/25/2023 6:14 EST [facility] Diagnosis Comment Specimen E (right [...] performance characteristics have been determined by [facility] and/or by the referring laboratory. The positive [...] at the intradepartmental consultation conference. 04/25/2023 6:14 [facility] Attestation There was significant resident/fellow involvement in the diagnostic evaluation of this case. By the signature below, the attending physician certifies that they have personally conducted a gross and/or microscopic examination of the described specimens and rendered or confirmed the above diagnosis. 04/25/2023 6:14 [facility] at 0614 Clinical History Elevated PSA; clinical diagnosis code: R97.20 04/25/2023 6:14 [facility] Gross Description A. Received in formalin labelled with proper patient identification (initials N, W) and right base Lat is a single olvia-white tissue core (1.8 cm in length x [...] L1. Jolanta Coe 04/20/2023 13:46 04/25/2023 6:14 [facility] Resident/Fell ow: Klever Peralta MD 04/25/2023 6:14 [facility] Performing Lab [facility] 04/25/2023 6:14 [facility] Scanned Images 04/25/2023 6:14 [facility] Tissue PROSTATIC STRUCTURE [...] 04/19/2023 17:45 EST Derrick Blue MD PATHOLOGY ORDERABLES Luanne l Result [facility] [address] [place], [place] [address] documented in this encounter Visit Diagnoses Diagnosis Elevated prostate specific antigen (PSA) documented in this encounter Care Teams Social Worker Delinquency Prevention Relationship Specialty Start Date End Date Jeff Pfeiffer MD [address] [facility] [address] [place] [address] PCP - General 08/27/22 documented as of this encounter
--- OUTSIDE RECORDS SUMMARY | 2024-02-27 10:46 | XMS_ITS | Encounter Summary ---
Author Organization [facility] Address [facility] [place] [address] Care Team Providers Care Technical Sales Engineer Name Role Phone Jeff Pfeiffer MD Primary Care Provider [phone] Encounter Details Date Type Department Care Team (Latest Contact Info) Description 12/13/2023 Travel Social History Tobacco Use Types Packs/Day Years Used Date Smoking Tobacco: Former Cigarettes Q uit: 1989 Smokeless Tobacco: Never Alcohol Use Standard Drinks/Week Comments Yes 15 (1 standard drink = 0.6 oz pu re alcohol) [facility] Utilities Answer Date Recorded In [...] file Travel History Travel Start Travel End [facility] 12/28/2023 01/27/2024 documented as of this encounter Plan of Treatment Upcoming Encounters Date Type Department Care Team (Late st Contact Info) Description 02/28/2024 9:15 AM EST Scheduled View Only Radiation Oncology at [address] [address] 02/28/2024 9:25 AM EST Office Visit Radiation Oncology at [address] [address] Leroy Berumen MD [address] [place] [address] [place] [address] 03/02/2024 9:30 AM EST Scheduled View Only Radiation Oncology at [address] [address] 03/03/2024 9:15 AM EST Scheduled View Only Radiation Oncology at [address] [address] 03/04/2024 9:45 AM EST Scheduled View Only Radiation Oncology at [address] [address] 03/05/2024 9:30 AM EST Scheduled View Only Radiation Oncology at [address] [address] 03/06/2024 8:30 AM EST Infusion Hematology Oncology at [address] [address] 03/06/2024 9:15 AM EST Scheduled View Only Radiation Oncology at [address] [address] 03/09/2024 9:15 AM EST Scheduled View Only Radiation Oncology at [address] [address] 03/10/2024 9:15 AM EST Scheduled View Only Radiation Oncology at [address] [address] 03/11/2024 9:15 AM EST Scheduled View Only Radiation Oncology at [address] [address] 03/12/2024 9:15 AM EST Scheduled View Only Radiation Oncology at [address] [address] 03/13/2024 9:15 AM EST Scheduled View Only Radiation Oncology at [address] [address] 03/16/2024 9:15 AM EST Scheduled View Only Radiation Oncology at [address] [address] 03/17/2024 9:15 AM EST Scheduled View Only Radiation Oncology at [address] [address] 03/18/2024 9:15 AM EST Scheduled View Only Radiation Oncology at [address] [address] 03/19/2024 9:15 AM EST Scheduled View Only Radiation Oncology at [address] [address] 03/20/2024 9:15 AM EST Scheduled View Only Radiation Oncology at [address] [address] 03/23/2024 9:15 AM EST Scheduled View Only Radiation Oncology at [address] [address] 03/24/2024 9:30 AM EST Scheduled View Only Radiation Oncology at [address] [address] documented as of this encounter Visit Diagnoses Not on filedocumented in this encounter Care Teams Technical Sales Engineer Relationship Specialty Start Date End Date Jeff Pfeiffer MD [address] [place] [address] PCP - General Family Medicine 03/12/23 documented as of this encounter
--- OUTSIDE RECORDS SUMMARY | 2024-02-27 10:46 | XMS_ITS | Encounter Summary ---
[place] [address] Care Team Providers Care Mds Nurse Name Role Phone Jeff Pfeiffer MD Primary Care Provider [phone] Reason for Referral * Diagnostic Test (Routine) - Closed Specialty Diagnoses / Procedures Referred By Contac t Referred To Contact Radiology Diagnoses Elevated PSA Procedures MRI Pelvis wwo (Prostate) Radha Khanna APRN [address] [place] [address] [place] [address] Referral ID Status Reason Start Date Expiration Date V isits Requested Visits Authorized [id number] Closed Specialty Service Requested 02/05/2023 08/06/2024 1 1 Reason for Visit * Diagnostic Test (Routine) - Closed Specialty Diagnoses / Procedures Referred By Contac t Referred To Contact Radiology Diagnoses Elevated PSA Procedures MRI Pelvis wwo (Prostate) Radha Khanna APRN [address] [place] [address] [place] [address] Referral ID Status Reason Start Date Expiration Date V isits Requested Visits Authorized [id number] Closed Specialty Service Requested 02/05/2023 08/06/2024 1 1 Encounter Details Date Type Department Care Team (Latest Contact Info) Description 03/14/2023 4:21 PM EST - 03/14/2023 11:59 PM EST Hospital [place] [phone] Radha Khanna APRN [address] [place] [address] Elevated PSA Discharge Disposition: Home Social History Tobacco Use Types Packs/Day Years Used Date Smoking Tobacco: Never Assessed Sex and Gender Information Value Date Recorded Sex Assigned at Not on file Gender Identity Not on file Sexual Orientation Not on file Travel History Travel Start Travel End [facility] 12/28/2023 01/27/2024 documented as of this [...] Scheduled View Only Radiation Oncology at [address] [address] 02/28/2024 9:25 AM EST Office Visit Radiation Oncology at [address] [address] Leroy Berumen MD [address] [place] [address] [place] [address] 03/02/2024 9:30 AM EST Scheduled View Only Radiation Oncology at [address] [phone] 03/03/2024 9:15 AM EST Scheduled View Only Radiation Oncology at [address] [address] 03/04/2024 9:45 AM EST Scheduled View Only Radiation Oncology at [address] [address] 03/05/2024 9:30 AM EST Scheduled View Only Radiation Oncology at [address] [place] [address] 03/06/2024 8:30 AM EST Infusion Hematology Oncology at [address] [place] [address] 03/06/2024 9:15 AM EST Scheduled View Only Radiation Oncology at [address] [place] [address] 03/09/2024 9:15 AM EST Scheduled View Only Radiation Oncology at [address] [place] [address] 03/10/2024 9:15 AM EST Scheduled View Only Radiation Oncology at [address] [place] [address] 03/11/2024 9:15 AM EST Scheduled View Only Radiation Oncology at [address] [place] [address] 03/12/2024 9:15 AM EST Scheduled View Only Radiation Oncology at [address] [place] [address] 03/13/2024 9:15 AM EST Scheduled View Only Radiation Oncology at [address] [place] [address] 03/16/2024 9:15 AM EST Scheduled View Only Radiation Oncology at [address] [place] [address] 03/17/2024 9:15 AM EST Scheduled View Only Radiation Oncology at [address] [place] [address] 03/18/2024 9:15 AM EST Scheduled View Only Radiation Oncology at [address] [place] [address] 03/19/2024 9:15 AM EST Scheduled View Only Radiation Oncology at [address] [place] [address] 03/20/2024 9:15 AM EST Scheduled View Only Radiation Oncology at [address] [address] 03/23/2024 9:15 AM EST Scheduled View Only Radiation Oncology at [address] [address] 03/24/2024 9:30 AM EST Scheduled View Only Radiation Oncology at [address] [address] documented as of this encounter Procedures Procedure [...] is highly likely to be present) References: Edilia S1, Nilo JH1, Remy S1, Dias C1, Barnes J1, Czarnieckisela M1, Gold S1, Browning G1, Rayn K1, Jacobo MJ1, Wood BJ1, Arzate PA1, Abdullahi PL1, Jessica B1. ??A Grading System for the Assessment of Risk of Extraprostatic Extension of Prostate Cancer at Multiparametric MRI. Radiology. 2019 Apr;290(3):709-719. doi: 10.1148/radiol.9524038772. Epub 2018Mar 11. Thank you for letting us participate in the care of this patient. ??If you are a health care provider and have any questions regarding this report, please contact the number below. ??For patients who have questions please contact the health director of healthcare systems that requested your imaging first. ? Narrative [...] cancer is highly likely rusty present) References: Mehralisaad S1, Nilo JH1, Alberto S1, Dias C1, Barnes J1, Czarniecki M1,Gold S1, Browning G1, Rayn K1, Jacobo MJ1, Shoaib BJ1, Arzate PA1, Abdullahi PL1, Jessica B1.A Grading System for the Assessment of Risk of Extraprostatic Extension of Prostate Cancer at Multiparametric MRI. Radiology. 2019Mar;290(3):709-719. doi: 10.1148/radiol.3981137563. Epub 2018Mar 11. Thank you for letting us participate in the care of this patient. If youare a health care provider and have any questions regarding this report,please contact the number below. For patients who have questions please contactthe health director of healthcare systems that requested your imaging first. Radha Khanna APRN [facility] MRI ORDERABLES documented in this encounter Visit [...] mLs documented in this encounter Care Teams Mds Nurse Relationship Specialty Start Date End Date Jeff Pfeiffer MD [address] [place] [address] PCP - General Family Medicine 03/12/23 documented as of this encounter
--- OUTSIDE RECORDS SUMMARY | 2024-02-27 10:46 | XMS_ITS | Encounter Summary ---
Author Organization [facility] Address [facility] [place] [id number] Care Team Providers Care [employer] Director Name Role Phone Jeff Pfeiffer MD Primary Care Provider [phone] Encounter Details Date Type Department Care Team (Late st Contact Info) Description 12/30/2023 Telephone Radiation Oncology at [address] [address] Melba Soler Social History Tobacco Use Types Packs/Day Years Used Date Smoking Tobacco: Former Cigarettes Q uit: 1989 Smokeless Tobacco: Never Alcohol Use Standard Drinks/Week Comments Yes 15 (1 standard drink = 0.6 oz pu re alcohol) [facility] Utilities Answer Date Recorded In the past [...] place to sleep or slept in a correction (including now)? No 06/19/2023 Sex and Gender Information Value Date Recorded Sex Assigned at Not on file Gender Identity Not on file Sexual Orientation Not on file Travel History Travel Start Travel End [facility] 12/28/2023 01/27/2024 documented as of this encounter Miscellaneous Notes * Telephone Encounter - Melba Soler - 12/30/2023 1:50 PM EST Rolando called to inform us that he and his booked a cruise for the week of 01/12. Therefore, he will not be able to make his appointments in [place] for his MRI an Simulation. Rolando requested to have his appointments rescheduled for after he returns home on the 19 of January. documented in this encounter Plan of Treatment Upcoming Encounters Date Type Department Care Team (Late st Contact Info) Description 02/28/2024 9:15 AM EST Scheduled View Only Radiation Oncology at [address] [address] 02/28/2024 9:25 AM EST Office Visit Radiation Oncology at [address] [address] Leroy Berumen MD [address] [place] [address] [place] [address] 03/02/2024 9:30 AM EST Scheduled View Only Radiation Oncology at [address] [address] 03/03/2024 9:15 AM EST Scheduled View Only Radiation Oncology at [address] [address] 03/04/2024 9:45 AM EST Scheduled View Only Radiation Oncology at [address] [address] 03/05/2024 9:30 AM EST Scheduled View Only Radiation Oncology at [address] [address] 03/06/2024 8:30 AM EST Infusion Hematology Oncology at [address] [address] 03/06/2024 9:15 AM EST Scheduled View Only Radiation Oncology at [address] [address] 03/09/2024 9:15 AM EST Scheduled View Only Radiation Oncology at [address] [address] 03/10/2024 9:15 AM EST Scheduled View Only Radiation Oncology at [address] [address] 03/11/2024 9:15 AM EST Scheduled View Only Radiation Oncology at [address] [address] 03/12/2024 9:15 AM EST Scheduled View Only Radiation Oncology at [address] [address] 03/13/2024 9:15 AM EST Scheduled View Only Radiation Oncology at [address] [address] 03/16/2024 9:15 AM EST Scheduled View Only Radiation Oncology at [address] [address] 03/17/2024 9:15 AM EST Scheduled View Only Radiation Oncology at [address] [address] 03/18/2024 9:15 AM EST Scheduled View Only Radiation Oncology at [address] [address] 03/19/2024 9:15 AM EST Scheduled View Only Radiation Oncology at [address] [address] 03/20/2024 9:15 AM EST Scheduled View Only Radiation Oncology at [address] [address] 03/23/2024 9:15 AM EST Scheduled View Only Radiation Oncology at [address] [address] 03/24/2024 9:30 AM EST Scheduled View Only Radiation Oncology at [address] [address] documented as of this encounter Visit Diagnoses Not on filedocumented in this encounter Care Teams [employer] Director Relationship Specialty Start Date End Date Jeff Pfeiffer MD [address] [place] [address] PCP - General Family Medicine 03/12/23 documented as of this encounter
--- OUTSIDE RECORDS SUMMARY | 2024-02-27 10:46 | XMS_ITS | Encounter Summary ---
Author Organization [facility] Address [facility] [place] [address] Care Team Providers Care Physical Sciences Instructor Name Role Phone Jeff Pfeiffer MD Primary Care Provider [phone] Encounter Details Date Type Department Care Team [...] file Travel History Travel Start Travel End [facility] 12/28/2023 01/27/2024 documented as of this encounter Plan of Treatment Upcoming Encounters Date Type Department Care Team (Late st Contact Info) Description 02/28/2024 9:15 AM EST Scheduled View Only Radiation Oncology at [address] [address] 02/28/2024 9:25 AM EST Office Visit Radiation Oncology at [address] [address] Leroy Breumen MD [address] [place] [address] [place] [address] 03/02/2024 9:30 AM EST Scheduled View Only Radiation Oncology at [address] [address] 03/03/2024 9:15 AM EST Scheduled View Only Radiation Oncology at [address] [address] 03/04/2024 9:45 AM EST Scheduled View Only Radiation Oncology at [address] [address] 03/05/2024 9:30 AM EST Scheduled View Only Radiation Oncology at [address] [address] 03/06/2024 8:30 AM EST Infusion Hematology Oncology at [address] [address] 03/06/2024 9:15 AM EST Scheduled View Only Radiation Oncology at [address] [address] 03/09/2024 9:15 AM EST Scheduled View Only Radiation Oncology at [address] [address] 03/10/2024 9:15 AM EST Scheduled View Only Radiation Oncology at [address] [address] 03/11/2024 9:15 AM EST Scheduled View Only Radiation Oncology at [address] [address] 03/12/2024 9:15 AM EST Scheduled View Only Radiation Oncology at [address] [address] 03/13/2024 9:15 AM EST Scheduled View Only Radiation Oncology at [address] [address] 03/16/2024 9:15 AM EST Scheduled View Only Radiation Oncology at [address] [address] 03/17/2024 9:15 AM EST Scheduled View Only Radiation Oncology at [address] [address] 03/18/2024 9:15 AM EST Scheduled View Only Radiation Oncology at [address] [address] 03/19/2024 9:15 AM EST Scheduled View Only Radiation Oncology at [address] [address] 03/20/2024 9:15 AM EST Scheduled View Only Radiation Oncology at [address] [address] 03/23/2024 9:15 AM EST Scheduled View Only Radiation Oncology at [address] [address] 03/24/2024 9:30 AM EST Scheduled View Only Radiation Oncology at [address] [address] documented as of this encounter Visit Diagnoses Not on filedocumented in this encounter Care Teams Physical Sciences Instructor Relationship Specialty Start Date End Date Jeff Pfeiffer MD [address] [place] [address] PCP - General Family Medicine 03/12/23 documented as of this encounter
--- OUTSIDE RECORDS SUMMARY | 2024-02-27 10:46 | XMS_ITS | Encounter Summary ---
Author Organization [facility] Address [facility] [place] [address] Care Team Providers Care Merchandise Adjustment Clerk Name Role Phone Jeff Pfeiffer MD Primary Care Provider [phone] Reason for Referral * Diagnostic Test (Routine) - Closed Specialty Diagnoses / Procedures Referred By Neil t Referred To Contact Radiology Diagnoses Malignant neoplasm of prostate Procedures MRI Pelvis wo (Prostate) MRI Pelvis wwo (Prostate) Teetee Han MD [facility] DR [place] [address] [facility] [place] [address] Referral ID Status Reason Start Date Expiration Date V isits Requested Visits Authorized [id number] Closed Specialty Service Requested 10/18/2023 04/17/2025 1 1 * Consultation (Routine) - Closed Specialty Diagnoses / Procedures Referred By Neil t Referred To Contact Radiation Oncology Diagnoses Malignant neoplasm of prostate Procedures Simulation for Radiation Therapy Planning Teetee Han MD [facility] [place] [address] [facility] [place] [address] Referral ID Status Reason Start Date Expiration Date V isits Requested Visits Authorized [id number] Closed Consult, Test & Treat 01/08/2024 02/18/2024 29 29 Encounter Details Date Type Department Care Team (Late st Contact Info) Description 10/18/2023 10:30 AM EDT Office Visit Radiation Oncology at [address] [place] [phone] Leroy Berumen MD [address] [place] [address] [place] [address] Malignant neoplasm of prostate Social History Tobacco Use Types Packs/Day Years Used Date Smoking Tobacco: Former Cigarettes Q uit: 1989 Smokeless Tobacco: Never Alcohol Use Standard Drinks/Week Comments Yes 15 (1 standard drink = 0.6 oz pu re alcohol) [facility] Utilities Answer Date Recorded In the [...] History Travel Start Travel End [facility] 12/28/2023 01/27/2024 documented as of this encounter Last Filed Vital Signs Vital Sign Reading Time Taken Comments Blood Pressure 148/80 10/18/2023 10:25 AM EDT Pulse 69 10/18/2023 10:25 AM EDT Temperature 37 ??C (98.6 ??F) 10/18/2023 10:25 AM EDT Respiratory Rate 14 10/18/2023 10:25 AM EDT Oxygen Saturation 100% 10/18/2023 10:25 AM EDT Inhaled Oxygen Concentration - - Weight 73 kg (161 lb) 10/18/2023 10:25 AM EDT Height - - Body Mass Index - - documented in this encounter Patient Instructions * Patient Instructions* Teetee Han MD - 10/18/2023 10:30 AM EDT Images from the original note [...] of your prostate cancer: You technically have unfavorable intermediate risk prostate cancer, which is a risk given to yourcancer of coming back after treatment. This is based on two things: 1. Your PSA (the blood test) was 5.3. PSA values below 10 are considered low risk and 10-20 are considered medium risk and above 20 are considered high risk. 2. Your highest [employer] Group score was 2 (this is how aggressive your prostate cancer looks under the microscope). Dayton scores for cancer range from 1-5, and 1 is considered lowest risk, while 5 is highest risk. 2. Radiation Treatment Options: There are a few ways radiation can be given here in [facility]. Either: 5.5 weeks of daily radiation (M-F) with external beam radiation alone (moderately hypofractionated RT) 5 treatments total (given every other day Mon/Weds/Fri) of external beam radiation alone (SBRT) It is important to know that for higher risk prostate cancer such as yours the effectiveness of shorter courses of radiation are not as well studied and may have higher, possibly severe urinary or bowel side effects that requires surgery to repair. 3. Fiducial marker implants: If you decide to choose external beam radiation by itself, the first step will be for you to return to our clinic so that we can place small gold markers (called fiducials) into the prostate, which help us visualize the prostate on a daily basis prior to treating you with radiation. These small gold seeds are about the size of a grain of rice, and we will place one into each side of the prostate. These procedures will be performed here in our clinic, and our nursingteam will provide you instructions with how to prepare yourself. It takes approximately 2 hours from when you arrive to when you leave the building. 4. Radiation Therapy and Planning: Radiation therapy [...] second scan is a prostate MRI which will show us the position of the markers and improve our ability to see your prostate. Following these scans, we [...] you during your first week of treatment. During your radiation treatments, you can expect to see me once per week so that I can examine you to make sure you are tolerating radiation treatments and so that we can monitor your response to treatment. 5. SIDE EFFECTS - Short Term: We discussed some common temporary side effects that you may experience during radiation. Common side effects may include irritative symptoms of the bladder or prostate,which can result in more frequent urination or defecation. Other common side effects mahy include weakened urinary stream or burning with urination. If you experience any of these, please let us knowso that we can help to treat them. These typically resolve within 4-6 weeks of completion radiation. 6. SIDE EFFECTS - Rattan Worker: These can include be permanent damage of the radiated tissues, including the rectum/bowel, bladder, prostate and surrounding tissues. Potential serious injury is rare, but can include poor wound healing, bleeding, or destruction of healthy tissue that may require surgery to repair and may result in a colostomy (bag for defecation) or urostomy (bag for urination). There may be a slow, care home decrease in your sexual function as well, which is partly due to the aging process but also partly due to radiation side effects. This is typically responsive to medicationslike Viagra. Finally, there is a risk that radiation to your prostate increases the chance of getting another cancer caused by radiation, possibly of the prostate, bladder, rectum or surrounding tissues. This risk is overall quite low (approximately 1% above your normal risk for each 10 years you are alive), but is something to be aware of. 7. Hormone therapy: For intermediate risk prostate cancers such as yours, I recommend a course of anti-testosterone therapy for at least 6 months (typically starting 2 months before radiation, contiuing for 2 months during radiation and ongoing after radiation is completed). This is usually given as a shot that lasts for 3 months at a time. The reason we recommend this is that the male hormone testosterone is used by prostate cancer as a fuel. By decreasing the body's production of testosterone, we can 'starve' the prostate cancer. The main side effects of hormone therapy include hot flashes,night sweats, weight gain, depressed mood, loss of sexual interest and impotence. There is also a very low risk of heart attack among men who have recently had a heart attack. These side effects usually reverse within 3-6 months of stopping the hormone therapy when testosterone recovers, although it can take up to a full year. Please do not hesitate to call me at [phone] with any other questions or concerns you have. IfI am not here, one of our radiation oncology nurses can assist you or help you get in touch with me. A Radiation Oncology doctor is also lifestyle consultant after our normal hours and on weekends for urgent questions or concerns related to radiation treatments that can not wait until normal business hours. To reach the on-call doctor after-hours, just call and have the lumber carrier operator page the Radiation Oncologist lifestyle consultant. And, as always, if you experience any [...] documented in this encounter Progress Notes * Teetee Han MD - 10/18/2023 10:30 AM EDT Images from the original note were not included. 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 INTERVAL SUBJECTIVE HISTORY: Since last seen, reports no overall changes to his health status. INTERVAL OBJECTIVE HISTORY: 09/25/23 PSA 5.3. ASSESSMENT / PLAN: We re-discussed ST-ADT and EBRT. We re-discussed the logistics of radiotherapy planning (coil placement, planning scans) and treatment delivery. We re- discussed acute and long-term side-effects of radiotherapy. We discussed the side-effects of ADT. Informed consent was reviewed and signed for coil placement and radiotherapy delivery. Rolando is starting his ADT today, we will plan for coil placement in approximately 6 weeks. All of Rolando's questions were answered to his fullest satisfaction, and we have provided him with our contact information should any further questions or concerns arise. Varinder Han MD, MS PGY5 Attending MD Attestation: I have seen the patient in person, reviewed and edited the resident's above history and I agree with the details as written. The assessment and plan were formulated in discussion with me and I agree with them as documented. At least 30 minutes were spent in providing care to this patient today as reflected by the following activities: - review of his medical record in the chart, including interpretation of imaging, laboratory and pathologic studies referenced above - discussion of the above with the patient as part of shared medical decision making - documenting the outcome of today's visit as above Leroy Berumen MD, MS Partnership Marketing Manager Radiation Oncology documented in this encounter Plan of Treatment Upcoming Encounters Date Type Department Care Team (Late st Contact Info) Description 02/28/2024 9:15 AM EST Scheduled View Only Radiation Oncology at [address] [phone] 02/28/2024 9:25 AM EST Office Visit Radiation Oncology at [address] [phone] Leroy Berumen MD [address] [place] [address] [place] [address] 03/02/2024 9:30 AM EST Scheduled View Only Radiation Oncology at [address] [phone] 03/03/2024 9:15 AM EST Scheduled View Only Radiation Oncology at [address] [phone] 03/04/2024 9:45 AM EST Scheduled View Only Radiation Oncology at [address] [phone] 03/05/2024 9:30 AM EST Scheduled View Only Radiation Oncology at [address] [phone] 03/06/2024 8:30 AM EST Infusion Hematology Oncology at [address] [address] 03/06/2024 9:15 AM EST Scheduled View Only Radiation Oncology at [address] [phone] 03/09/2024 9:15 AM EST Scheduled View Only Radiation Oncology at [address] [phone] 03/10/2024 9:15 AM EST Scheduled View Only Radiation Oncology at [address] [phone] 03/11/2024 9:15 AM EST Scheduled View Only Radiation Oncology at [address] [phone] 03/12/2024 9:15 AM EST Scheduled View Only Radiation Oncology at [address] [phone] 03/13/2024 9:15 AM EST Scheduled View Only Radiation Oncology at [address] [phone] 03/16/2024 9:15 AM EST Scheduled View Only Radiation Oncology at [address] [phone] 03/17/2024 9:15 AM EST Scheduled View Only Radiation Oncology at [address] [phone] 03/18/2024 9:15 AM EST Scheduled View Only Radiation Oncology at [address] [phone] 03/19/2024 9:15 AM EST Scheduled View Only Radiation Oncology at [address] [phone] 03/20/2024 9:15 AM EST Scheduled View Only Radiation Oncology at [address] [phone] 03/23/2024 9:15 AM EST Scheduled View Only Radiation Oncology at [address] [phone] 03/24/2024 9:30 AM EST Scheduled View Only Radiation Oncology at [address] [phone] Scheduled Orders Name Type Priority Associated Diagnoses Orde r Schedule Simulation for Radiation Therapy Planning Radiation Oncology Routine Malignant neoplasm of prostate Expected: 10/18/2023, Expires: 04/18/2024 documented as of this encounter Results * MRI Pelvis wo (Prostate) (01/27/2024 9:09 AM EST) Contact At Once! WORKSTATION ID [id number] RAD Anatomical Region Laterality Modality Pelvis Magnetic Resonan ce Impressions 01/27/2024 1:25 PM EST Limited MRI for radiation treatment planning. Thank you for letting us participate in the care of this patient. ??If you are a health care provider and have any questions regarding this report, please contact the number below. ??For patients who have questions please contact the health healthcare management that requested your imaging first. ? Electronically signed by: Jann Pacheco MD, [facility] ([phone]), at 01/27/2024 1:25 PM Narrative 01/27/2024 1:25 [...] patients who have questions please contactthe health healthcare management that requested your imaging first. Electronically signed by: Jann Pacheco MD, [facility]([phone]), at 01/27/2024 1:25 PM Leroy Berumen MD IMG MRI ORDERABLES documented in this encounter Visit Diagnoses Diagnosis Malignant neoplasm of prostate Malignant neoplasm of prostate documented in this encounter Care Teams Merchandise Adjustment Clerk Relationship Specialty Start Date End Date Jeff Pfeiffer MD [address] [place] [address] PCP - General Family Medicine 03/12/23 documented as of this encounter
--- OUTSIDE RECORDS SUMMARY | 2024-02-27 10:46 | XMS_ITS | Encounter Summary ---
Author Organization [facility] Address [address] [place] [address] Care Team Providers Care Risk And Insurance Manager Name Role Phone Jeff Pfeiffer MD Primary Care Provide r Encounter Details Date Type Department Care Team (Late st Contact Info) Description 06/27/2023 Lab Requisition [facility] Pathology & Laboratory Medicine - [facility] [address] [place] [address] Leroy Berumen MD [address] [place] [address] [place] [address] Encounter for other general examination [...] of Dr. Leroy Berumen, a block from [id number] (F1) was sent to [facility] for testing. For Decipher results, please see scanned report in EPIC. 07/08/2023 11:07 EDT [facility] Original (F1) 07/08/2023 11:07 EDT [facility] Original Case Specimen Source Right apex prostate 07/08/2023 11:07 [facility] Original Case Date of Service 04/19/2023 07/08/2023 11:07 [facility] Attestation By the signature below, the attending physician certifies that they have 1) personally conducted a gross and/or microscopic examination of the described specimen(s), and/or personally interpreted the results of laboratory testing of the described specimen(s), and 2) personally rendered or confirmed the above diagnosis. 07/08/2023 11:07 [facility] at [address] Surgical Pathology PROSTATIC [...] Unknown 06/27/2023 15:00 EDT 06/27/2023 15:00 EDT us Leroy Berumen MD PATHOLOGY ORDERABLES Final Resu lt [facility] [address] [place] [address] documented in this encounter Visit Diagnoses Diagnosis Encounter for other general examination documented in this encounter Care Teams Risk And Insurance Manager Relationship Specialty Start Date End Date Jeff Pfeiffer MD [address] [place] [address] [address] [place], [place] [id number] PCP - General 08/27/22 documented as of this encounter
--- OUTSIDE RECORDS SUMMARY | 2024-02-27 10:46 | XMS_ITS | Encounter Summary ---
Author Organization [facility] [place] [address] Care Team Providers Care Supervisor Aluminum Boat Assembly Name Role Phone Jeff Pfeiffer MD Primary Care Provider [phone] Reason for Visit * Consultation (Routine) - Closed Specialty Diagnoses / Procedures Referred By Neil keller Referred To Contact Radiation Oncology Diagnoses Malignant neoplasm of prostate Derrick Blue MD [address] [place] [address] Lisa Berumen MD [address] [place] [address] [place] [address] Referral ID Status Reason Start Date Expiration Date V isits Requested Visits Authorized [id number] Closed Consult, Test & Treat 05/30/2023 05/29/2024 1 1 Encounter Details Date Type Department Care Team (Late st Contact Info) Description 06/19/2023 11:00 AM EDT Office Visit Radiation Oncology at [address] [phone] Lisa Berumen MD [address] [place] [address] [place] [address] Malignant neoplasm of prostate Social History Tobacco Use Types Packs/Day Years Used Date Smoking Tobacco: Former Cigarettes Q uit: 1989 Smokeless Tobacco: Never Tobacco Cessation:Counseling Given: Not Answered Alcohol Use Standard Drinks/Week Comments Yes 15 (1 standard drink = 0.6 oz pu re alcohol) [facility] Utilities Answer Date Recorded In [...] file Travel History Travel Start Travel End [facility] 12/28/2023 01/27/2024 documented as of [...] this encounter Patient Instructions * Patient Instructions* Lisa Berumen MD - 06/19/2023 11:00 AM EDT [...] are considered medium risk. 2. Your highest [employer] Group score was 2 (this is how aggressive your prostate cancer looks under the microscope). [place]house scores for cancer range from 1-5, and [...] or to the Active Surveillance Clinic at [facility], which is run by our prostate cancer [...] you to my colleague Dr. Tavares in [place], who specializes in the placement of radioactive [...] a prostate MRI which we do at [facility], that allows us to better see your [...] within 4-6 weeks of completion radiation. 6. Usp Complications: These are more worrisome and are [...] urination). There may be a slow, terminal gauger supervisor decrease in your sexual function as well, [...] do not hesitate to call me at [phone] with any other questions or concerns you have. IfI am not here, one of our radiation oncology nurses can assist you or help you get in touch with me. A Radiation Oncology doctor is also custom protection officer after our normal hours and on weekends for urgent questions or concerns related to radiation treatments that can not wait until normal business hours. To reach the on-call doctor after-hours, just call and have the receiving operator page the Radiation Oncologist custom protection officer. And, as always, if you experience any [...] resulting in injury 7. Uncontrollable bleeding Sincerely, Lisa Archer. MD [place], [place] Radiation Oncology documented in this encounter Progress Notes * Lisa Berumen MD - 06/19/2023 11:00 AM EDT Images from the original note were not included. Radiation Oncology Prostate Cancer Consult Note Lisa Berumen MD, MS [facility] [phone] PATIENT IDENTIFICATION: PATIENT NAME: Rolando Brown DATE OF : 1955 REFERRING PROVIDER: Dr Blue PRIMARY CARE PROVIDER: Dr Pfeiffer REASON FOR CONSULTATION : Cancer Staging Malignant neoplasm of prostate Staging form: Prostate, AJCC 8th Edition - Clinical: Stage IIB (cT1c, cN0, cM0, PSA: 8.6, Grade Group: 2) - Signed by Lisa Berumen MD on 06/14/2023 HISTORY OF PRESENT [...] hyperplasia) HSV (herpes simplex virus) infection Melanoma 2004 PMR (polymyalgia rheumatica) Seborrheic dermatitis Past Surgical History: Procedure Laterality Date INGUINAL HERNIA REPAIR 2002 KNEE SURGERY Right ROTATOR CUFF REPAIR Left [...] Yes ALLERGIES: No Known Allergies SOCIAL HISTORY: [place]: [facility] Living Situation: Lives alone Transit time to [facility]: 10 mins 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 In the terminal gauger supervisor, I explained there is an approximately 2% [...] his case to Dr Gurvinder Ugarte at [facility] who routinely performs these implants. ADT was [...] candidate for any currently open trials at [facility]. If his PSA was >10 he would be eligible for NR 010. On balance, Rolando wishes to proceed [...] the outcome of today's visit as above LISA BERUMEN MD, MS * Leesa Randall RN [...] REPAIR Left Social History: Driving from - [facility] [place] Lives with - Alone. Sometimes his kids stay with him Occupation - Volunteers with [employer]. 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 Alcohol/Drug/Tobacco use - 2 glasses of wine [...] EDH social assessment information entered. Support Systems: [employer] transportation plan: [ X]private vehicle [ ] RCT needs Social Work referral [ ] Unknown at this time needs Social Work referral Barriers to treatment: None Referrals/Interventions: Will see PHYSICIAN ASSISTANT CERTIFIED per routine during SIM appointment. TEACHING: Learning [...] EST Scheduled View Only Radiation Oncology at [address] [phone] 02/28/2024 9:25 AM EST Office Visit Radiation Oncology at [address] [phone] Lisa Berumen MD [address] [place] [address] DR RADIATION ONCOLOGY [place], [place] [phone] 03/02/2024 9:30 AM EST Scheduled View Only Radiation Oncology at [address] [phone] 03/03/2024 9:15 AM EST Scheduled View Only Radiation Oncology at [address] [phone] 03/04/2024 9:45 AM EST Scheduled View Only Radiation Oncology at [address] [phone] 03/05/2024 9:30 AM EST Scheduled View Only Radiation Oncology at [address] [phone] 03/06/2024 8:30 AM EST Infusion Hematology Oncology at [address] [phone] 03/06/2024 9:15 AM EST Scheduled View Only Radiation Oncology at [address] [phone] 03/09/2024 9:15 AM EST Scheduled View Only Radiation Oncology at [address] [phone] 03/10/2024 9:15 AM EST Scheduled View Only Radiation Oncology at [address] [phone] 03/11/2024 9:15 AM EST Scheduled View Only Radiation Oncology at [address] [phone] 03/12/2024 9:15 AM EST Scheduled View Only Radiation Oncology at [address] [phone] 03/13/2024 9:15 AM EST Scheduled View Only Radiation Oncology at [address] [phone] 03/16/2024 9:15 AM EST Scheduled View Only Radiation Oncology at [address] [phone] 03/17/2024 9:15 AM EST Scheduled View Only Radiation Oncology at [address] [phone] 03/18/2024 9:15 AM EST Scheduled View Only Radiation Oncology at [address] [phone] 03/19/2024 9:15 AM EST Scheduled View Only Radiation Oncology at [address] [phone] 03/20/2024 9:15 AM EST Scheduled View Only Radiation Oncology at [address] [phone] 03/23/2024 9:15 AM EST Scheduled View Only Radiation Oncology at [address] [phone] 03/24/2024 9:30 AM EST Scheduled View Only Radiation Oncology at [address] [phone] documented as of this encounter Visit Diagnoses Diagnosis Malignant neoplasm of prostate documented in this encounter Care Teams Supervisor [employer]uminum [employer] Relationship Specialty Start Date End Date Jeff Pfeiffer MD [address] [facility] [address] [place] [address] PCP - General Family Medicine 03/12/23 documented as of this encounter
--- OUTSIDE RECORDS SUMMARY | 2024-02-27 10:46 | XMS_ITS | Encounter Summary ---
Author Organization Formerly [facility] Address [facility] [place] [address] Care Team Providers Care Electrical Assembler Name Role Phone Jeff Pfeiffer MD Primary Care Provider [phone] Reason for Visit * Reason Comments Injections * Treatment/Therapy Plan Authorization (Routine) - Authorized Specialty Diagnoses / Procedures Referred By Neil keller Referred To Contact Hematology and Oncology Diagnoses Malignant neoplasm of prostate Leroy Berumen MD [address] [place] [address] [place] [address] Stj Hem Onc Infusion [address] [place] [phone] Referral ID Status Reason Start Date Expiration Date V isits Requested Visits Authorized [id number] Authorized 07/12/2023 07/11/2024 99 101 Encounter Details Date Type Department Care Team (Late st Contact Info) Description 12/13/2023 8:30 AM EDT Infusion Hematology Oncology at [address] [address] Malignant neoplasm of prostate Social History Tobacco Use Types Packs/Day Years Used Date Smoking Tobacco: Former Cigarettes Q uit: 1989 Smokeless Tobacco: Never Alcohol Use Standard Drinks/Week Comments Yes 15 (1 standard drink = 0.6 oz pu re alcohol) [facility] Utilities Answer Date Recorded In the [...] Travel History Travel Start Travel End [facility] 12/28/2023 01/27/2024 documented as of this encounter Last Filed Vital Signs Vital Sign Reading Time Taken Comments Blood Pressure 141/80 12/13/2023 8:29 AM EDT Pulse 60 12/13/2023 8:29 AM EDT Temperature 36.1 ??C (97 ??F) 12/13/2023 8:29 AM EDT Respiratory Rate 16 12/13/2023 8:29 AM EDT Oxygen Saturation 100% 12/13/2023 8:29 AM EDT Inhaled Oxygen Concentration - - Weight 73.4 kg (161 lb 12.8 oz) 12/13/2023 8:29 AM EDT Height - - Body Mass Index - - documented in this encounter Progress Notes * Gabriella Ashwin Quinones RN - 12/13/2023 8:30 AM EDT Infusion Note Diagnosis:Prostate Cancer [...] EST Scheduled View Only Radiation Oncology at [address] [phone] 02/28/2024 9:25 AM EST Office Visit Radiation Oncology at [address] [address] Leroy Berumen MD [address] [place] [address] [place] [address] 03/02/2024 9:30 AM EST Scheduled View Only Radiation Oncology at [address] [address] 03/03/2024 9:15 AM EST Scheduled View Only Radiation Oncology at [address] [address] 03/04/2024 9:45 AM EST Scheduled View Only Radiation Oncology at [address] [address] 03/05/2024 9:30 AM EST Scheduled View Only Radiation Oncology at [address] [address] 03/06/2024 8:30 AM EST Infusion Hematology Oncology at [address] [address] 03/06/2024 9:15 AM EST Scheduled View Only Radiation Oncology at [address] [address] 03/09/2024 9:15 AM EST Scheduled View Only Radiation Oncology at [address] [address] 03/10/2024 9:15 AM EST Scheduled View Only Radiation Oncology at [address] [address] 03/11/2024 9:15 AM EST Scheduled View Only Radiation Oncology at [address] [address] 03/12/2024 9:15 AM EST Scheduled View Only Radiation Oncology at [address] [address] 03/13/2024 9:15 AM EST Scheduled View Only Radiation Oncology at [address] [address] 03/16/2024 9:15 AM EST Scheduled View Only Radiation Oncology at [address] [address] 03/17/2024 9:15 AM EST Scheduled View Only Radiation Oncology at [address] [address] 03/18/2024 9:15 AM EST Scheduled View Only Radiation Oncology at [address] [address] 03/19/2024 9:15 AM EST Scheduled View Only Radiation Oncology at [address] [address] 03/20/2024 9:15 AM EST Scheduled View Only Radiation Oncology at [address] [address] 03/23/2024 9:15 AM EST Scheduled View Only Radiation Oncology at [address] [address] 03/24/2024 9:30 AM EST Scheduled View Only Radiation Oncology at [address] [address] documented as of this encounter Visit Diagnoses Diagnosis Malignant neoplasm of prostate documented in this encounter Administered Medications Inactive Administered Medications - up to 3 most recent administrations Medication Order MAR Action Action Date Dose Rate Site leuprolide (Lupron Depot) 7.5 mg intramuscular syringe kit 7.5 mg 7.5 mg, Intramuscular, ONCE, 1 dose, On Sat12/13/23 at 0900, Routine, This agent is restricted to outpatient use. Is this drug being given as an outpatient? Yes Given 12/13/2023 8:51 AM EDT 7.5 mg Right Gluteal documented in this encounter Care Teams Electrical Assembler Relationship Specialty Start Date End Date Jeff Pfeiffer MD [address] [place] [address] PCP - General Family Medicine 03/12/23 documented as of this encounter
--- OUTSIDE RECORDS SUMMARY | 2024-02-27 10:46 | XMS_ITS | Encounter Summary ---
Author Organization [facility] Address [facility] [place] [address] Care Team Providers Care Track Sweeper Name Role Phone Jeff Pfeiffer MD Primary Care Provider [phone] Reason for Visit * Reason Onset Date Comments Results 10/07/2023 Encounter Details Date Type Department Care Team (Late st Contact Info) Description 10/07/2023 Telephone Radiation Oncology at [address] [address] Jacklyn Ignacio, RN Results Social History Tobacco Use Types Packs/Day Years Used Date Smoking Tobacco: Former Cigarettes Q uit: 1989 Smokeless Tobacco: Never Alcohol Use Standard Drinks/Week Comments Yes 15 (1 standard drink = 0.6 oz pu re alcohol) [facility] Utilities Answer Date Recorded In the past [...] file Travel History Travel Start Travel End [facility] 12/28/2023 01/27/2024 documented as of this encounter Miscellaneous Notes * Telephone Encounter - Jacklyn Ignacio RN - 10/07/2023 4:58 PM EDT Telephone call returned to patient to let him know that his PSA drawn 09/25/23 was 5.3. He states that he is pleased that it is going down and will be here for his appointment scheduled 10/10/23. * Telephone Encounter - Jacklyn Ignacio RN - 10/07/2023 4:57 PM EDT ----- Message from Teetee Han sent at 10/07/2023 12:08 PM EDT ----- Regarding: RE: looking for psa results Sounds okay to me. We are seeing him on 10/09 for consent and ADT. Thanks ----- Message ----- From: Jacklyn Ignacio RN Sent: 10/07/2023 11:55 AM EDT To: Leroy Berumen MD; Teetee Han MD Subject: FW: looking for psa results Rolando's PSA is now available in his chart from 09/25/23- 5.3. (previously was 6.0 from 5/1/24) Ok to share this result with him? Thanks, Jacklyn ----- Message ----- From: Sydnee Johnson Sent: 10/07/2023 8:38 AM EDT To: Andrew Rad Onc Nurse Subject: looking for psa results Rolando called in to ask about his lab result from his PSA on 09/24. I just faxed them to [employer]. Can you please give him a call to let him know the results? [phone] documented in this encounter Plan of Treatment Upcoming Encounters Date Type Department Care Team (Late st Contact Info) Description 02/28/2024 9:15 AM EST Scheduled View Only Radiation Oncology at [address] [address] 02/28/2024 9:25 AM EST Office Visit Radiation Oncology at [address] [address] Leroy Berumen MD [address] [place] [address] [place] [address] 03/02/2024 9:30 AM EST Scheduled View Only Radiation Oncology at [address] [address] 03/03/2024 9:15 AM EST Scheduled View Only Radiation Oncology at [address] [address] 03/04/2024 9:45 AM EST Scheduled View Only Radiation Oncology at [address] [address] 03/05/2024 9:30 AM EST Scheduled View Only Radiation Oncology at [address] [address] 03/06/2024 8:30 AM EST Infusion Hematology Oncology at [address] [address] 03/06/2024 9:15 AM EST Scheduled View Only Radiation Oncology at [address] [address] 03/09/2024 9:15 AM EST Scheduled View Only Radiation Oncology at [address] [address] 03/10/2024 9:15 AM EST Scheduled View Only Radiation Oncology at [address] [address] 03/11/2024 9:15 AM EST Scheduled View Only Radiation Oncology at [address] [address] 03/12/2024 9:15 AM EST Scheduled View Only Radiation Oncology at [address] [address] 03/13/2024 9:15 AM EST Scheduled View Only Radiation Oncology at [address] [address] 03/16/2024 9:15 AM EST Scheduled View Only Radiation Oncology at [address] [address] 03/17/2024 9:15 AM EST Scheduled View Only Radiation Oncology at [address] [address] 03/18/2024 9:15 AM EST Scheduled View Only Radiation Oncology at [address] [address] 03/19/2024 9:15 AM EST Scheduled View Only Radiation Oncology at [address] [address] 03/20/2024 9:15 AM EST Scheduled View Only Radiation Oncology at [address] [address] 03/23/2024 9:15 AM EST Scheduled View Only Radiation Oncology at [address] [address] 03/24/2024 9:30 AM EST Scheduled View Only Radiation Oncology at [address] [address] documented as of this encounter Visit Diagnoses Not on filedocumented in this encounter Care Teams Track Sweeper Relationship Specialty Start Date End Date Jeff Pfeiffer MD [address] [place] [address] PCP - General Family Medicine 03/12/23 documented as of this encounter
--- OUTSIDE RECORDS SUMMARY | 2024-02-27 10:46 | XMS_ITS | Encounter Summary ---
Author Organization [facility] Address [facility] [place] [address] Care Team Providers Care Kettle Firer Name Role Phone Jeff Pfeiffer MD Primary Care Provider [phone] Reason for Visit * Reason Comments Chemotherapy Injections * Treatment/Therapy Plan Authorization (Routine) - Authorized Specialty Diagnoses / Procedures Referred By Neil keller Referred To Contact Hematology and Oncology Diagnoses Malignant neoplasm of prostate Leroy Berumen MD [address] [place] [address] [place] [address] Stj Hem Onc Infusion [address] [place] [phone] Referral ID Status Reason Start Date Expiration Date V isits Requested Visits Authorized [id number] Authorized 07/12/2023 07/11/2024 99 101 Encounter Details Date Type Department Care Team (Late st Contact Info) Description 10/18/2023 11:00 AM EDT Infusion Hematology Oncology at [address] [address] Malignant neoplasm of prostate Social History Tobacco Use Types Packs/Day Years Used Date Smoking Tobacco: Former Cigarettes Q uit: 1989 Smokeless Tobacco: Never Alcohol Use Standard Drinks/Week Comments Yes 15 (1 standard drink = 0.6 oz pu re alcohol) [facility] Utilities Answer Date Recorded In the past 12 months has [employer] electric, gas, oil, or water company threatened [...] as of this encounter Progress Notes * Korina Johns, RN - 10/18/2023 11:00 AM EDT Infusion Note Diagnosis:Prostate Cancer Treatment: Lupron Injection Lupron injected in right gluteal Patient instructed on side effects of Lupron. Patient states understanding of teaching, Patient aware to call clinic with any questions or concerns. Plan: Return to clinic as scheduled.Infusion Note documented in this encounter Plan of Treatment Upcoming Encounters Date Type Department Care Team (Late st Contact Info) Description 02/28/2024 9:15 AM EST Scheduled View Only Radiation Oncology at [address] [phone] 02/28/2024 9:25 AM EST Office Visit Radiation Oncology at [address] [address] Leroy Berumen MD [address] [place] [address] [place] [address] 03/02/2024 9:30 AM EST Scheduled View Only Radiation Oncology at [address] [address] 03/03/2024 9:15 AM EST Scheduled View Only Radiation Oncology at [address] [address] 03/04/2024 9:45 AM EST Scheduled View Only Radiation Oncology at [address] [address] 03/05/2024 9:30 AM EST Scheduled View Only Radiation Oncology at [address] [address] 03/06/2024 8:30 AM EST Infusion Hematology Oncology at [address] [address] 03/06/2024 9:15 AM EST Scheduled View Only Radiation Oncology at [address] [address] 03/09/2024 9:15 AM EST Scheduled View Only Radiation Oncology at [address] [address] 03/10/2024 9:15 AM EST Scheduled View Only Radiation Oncology at [address] [address] 03/11/2024 9:15 AM EST Scheduled View Only Radiation Oncology at [address] [address] 03/12/2024 9:15 AM EST Scheduled View Only Radiation Oncology at [address] [address] 03/13/2024 9:15 AM EST Scheduled View Only Radiation Oncology at [address] [address] 03/16/2024 9:15 AM EST Scheduled View Only Radiation Oncology at [address] [address] 03/17/2024 9:15 AM EST Scheduled View Only Radiation Oncology at [address] [address] 03/18/2024 9:15 AM EST Scheduled View Only Radiation Oncology at [address] [address] 03/19/2024 9:15 AM EST Scheduled View Only Radiation Oncology at [address] [address] 03/20/2024 9:15 AM EST Scheduled View Only Radiation Oncology at [address] [address] 03/23/2024 9:15 AM EST Scheduled View Only Radiation Oncology at [address] [address] 03/24/2024 9:30 AM EST Scheduled View Only Radiation Oncology at [address] [address] documented as of this encounter Visit Diagnoses Diagnosis Malignant neoplasm of prostate documented in this encounter Administered Medications Inactive Administered Medications - up to 3 most recent administrations Medication Order MAR Action Action Date Dose Rate Site leuprolide (Lupron Depot) 7.5 mg intramuscular syringe kit 7.5 mg 7.5 mg, Intramuscular, ONCE, 1 dose, On Sat10/18/23 at 1115, Routine, This agent is restricted to outpatient use. Is this drug being given as an outpatient? Yes Given 10/18/2023 10:57 AM EDT 7.5 mg Right Gluteal documented in this encounter Care Teams Kettle Firer Relationship Specialty Start Date End Date Jeff Pfeiffer MD [address] [place] [address] PCP - General Family Medicine 03/12/23 documented as of this encounter
--- OUTSIDE RECORDS SUMMARY | 2024-02-27 10:47 | XMS_ITS | Encounter Summary ---
Author Organization [facility] Address [address] [place] [address] Care Team Providers Care Watch Repairer Apprentice Name Role Phone Jeff Pfeiffer MD Primary Care Provide r Reason for Visit * Reason Comments Procedure Left neck * Consult (Routine) - Authorized Specialty Diagnoses / Procedures Referred By [facility] Health[facility] keller Referred To Contact Dermatology Diagnoses Basal cell carcinoma (BCC) of neck Procedures WI ADJ TISS XFER HEAD,FAC,HAND <10 SQCM WI ADJ TISS XFER HEAD,FAC,HAND 10.1-30 SQCM WI ADJ TISS XFER ANY AREA,30.1-60 SQCM WI SPLIT GRFT,HEAD,FAC,HAND,FEET <100 SQCM WI FULL THICK GRFT HEAD,FAC,HAND <20SQC WI FULL THICK GRFT HEAD,FAC,JUSTIN ADD 20SQ WI DELAY/SECTN FLAP FACE,GENIT,HAND,FT WI COMPOSITE SKIN GRAFT WI MOHS, 1 STAGE, HEAD/NECK/HAND/FEET/GENTI AL [facility] [address] [address] Phone: tel: fax: John Aden MD Phone: tel: fax: Referral ID Status Reason Start Date Expiration Date V isits Requested Visits Authorized [id number] Authorized 1 1 Encounter Details Date Type Department Care Team (Late st Contact Info) Description 08/27/2022 13:00 EDT Office Visit [facility] [address] [id number] John Aden MD [address] [place] [address], [facility] [address] [place] [address] Basal cell carcinoma (BCC) of left side [...] site rapidly swells. Please call our office [phone] or if you have any questions or [...] 2022 Surgeon and Pathologist: John Aden MD Licensed Surveyor: Marlon Elliott MD Case #: [id number] Mohs [...] handed personally by the doctor to the forklift technician for frozen sectioning. The tissue was [...] INFORMATION: Rolando Brown SURGEON: John Aden MD LAWN SERVICE MANAGER: Marlon Elliott MD and Bernadine Dorantes MD [...] (08/29/2022 18:22 EDT) 08/29/2022 18:2 2 EDT us Scan 2 Dairy Cattle Farm Manager PROCEDURE/MINOR SURGICAL OR DERABLES Final Result documented in this encounter Visit Diagnoses Diagnosis Basal cell carcinoma (BCC) of left side of neck- Primary documented in this encounter Historical Medications * This list may reflect changes made after this encounter. Cholecalciferol, Vitamin D3, 10 mcg (400 unit) tablet Take 50 Units by mouth daily. TAMSulosin (FLOMAX) 0.4 mg capsule Take 1 Capsule by mouth daily. atorvastatin (LIPITOR) 40 mg tablet Take 1 Tablet by mouth daily. Coenzyme Q10 (CO Q-10) 100 mg capsule Take 1 Capsule by mouth daily. added in this encounter Care Teams Watch Repairer Apprentice Relationship Specialty Start Date End Date Jeff Pfeiffer MD [address] [place] [address] PCP - General 08/27/22 documented as of this encounter
--- OUTSIDE RECORDS SUMMARY | 2024-02-27 10:47 | XMS_ITS | Encounter Summary ---
Author Organization [facility] Address [address] [place] [address] Care Team Providers Care Fruit Inspector Name Role Phone Jeff Pfeiffer MD Primary Care Provide r Encounter Details Date Type Department Care Team (Late st Contact Info) Description 05/21/2019 Lab Requisition [facility] Pathology & Laboratory Medicine - [facility] [address] [place] [address] Unknown, Provider, Social History Tobacco Use Types [...] 0.0 - 4.5 ng/mL 05/22/2019 10:00 EDT [facility] Blood VENOUS BLOOD / Unknown 05/20/2019 9:20 EDT 05/21/2019 15:48 EDT Narrative [facility] - 05/22/2019 10:00 EDT NOTE: Serum PSA concentration should not be interpreted as absolute evidence for the presence or absence of malignant disease. Assayed on Siemens ADVIA Centaur XPT using chemiluminescent technology.??Values obtained by using different assay methods cannot be used interchangeably. us Provider Unknown CHEMISTRY & BLOOD GAS ORDERA BLES Final Result [facility] [address] [place] [address] documented in this encounter Visit Diagnoses Not on filedocumented in this encounter Care Teams Fruit Inspector Relationship Specialty Start Date End Date Jeff Pfeiffer MD [address] [place] [address] PCP - General 08/27/22 documented as of this encounter
--- OUTSIDE RECORDS SUMMARY | 2024-02-27 10:47 | XMS_ITS ---
Author Organization Unknown Address [address] [place] [phone] Phone Care Team Providers Care Canal Boat Operator Name Role Phone ILAN Judge MD Attending Unavailable [facility] Unavailable CHRISTIANO FUNG MD Primary Unavailable [...] MULUGETA BOBO M.D. RADIOLOGIST Transcribed by: MARCUS 08/28/2011:13 D Friday, August 28, 2020 10:25:51 AM [id number] Electronically Reviewed and Signed By: BOBY BOBO M.D. RADIOLOGIST 08/28/20 11:55 Copy for: CHRISTIANO FUNG MD via link DISCHARGED Social History Type Status Start Date End Date Code Code Syst em Smoking History Never smoker (Never Smoked) 027888027 SNOMED CT Sex Male Hospital Discharge Instructions [...] FDA Left shoulder rotator cuff repair 03/23 [id number] 12/18/2025 Arthre x(R) AR-2326 BCC Tendon/lig ament bone anchor, bioabsorba ble 0100 8888 6702 7312 1725 1130 1014 6820 01 Active FDA Left shoulder rotator cuff repair 03/23 [id number] 1 01/17/2025 Arthre x(R) AR-2600 SBS-4 Problems Problem Start Date Resolved Date Status Code Code System DEPRESSION 12/27/2021 resolved 33256048 SNOMED-C T HYPERTENSION 12/27/2021 resolved 74221890 SNOMED -CT Allergies and Adverse Reactions Allergy Substance Reaction Severity Start Date Concern Status Co de Code System No Known Allergies Active 135687574 SNO MED-CT Plan of Treatment MRI UPPER EXT JOINT W/O CONTRAST 2021 US ABDOMEN LIMITED 1 ORGAN 06/12/2021 Encounters Encounter Diagnosis Start Date Code Code Sys tem Other chest pain 08/27/2020 SNOMED-CT Personal Care Team Section Performer Name Performer Role Active Date Inactive Da te
--- OUTSIDE RECORDS SUMMARY | 2024-02-27 10:47 | XMS_ITS ---
Author Organization Unknown Address [address] [place] [phone] Phone Care Team Providers Care Research Geologist Name Role Phone RENZO Diaz MD Attending Dominique FUNG MD Primary Unavailable Social History Type Status Start Date End Date Code Code Syst em Smoking History Never smoker (Never Smoked) 056462687 SNOMED CT Sex Male Vital Signs Vital Sign Value Unit [place] Value [place] Unit Date/Time Recent/Initial? Code Code System Systolic Blood Pressure 124 mm[Hg] 09/20/2020 13:14 Most Recent 8480-6 LOINC Diastolic Blood Pressure 74 mm[Hg] 09/20/2020 13:14 Most Recent 8462-4 LOINC Systolic Blood Pressure 107 mm[Hg] 09/20/2020 12:54 Initial 8480-6 LOINC Diastolic Blood Pressure 78 mm[Hg] 09/20/2020 12:54 Initial 8462-4 LOINC O2 Saturation 100 % 2020 13:14 Most Recent 68300- 5 LOINC O2 Saturation 97 % 2020 12:54 Initial 91663- 5 LOINC Pulse 71.0 /min 09/20/2020 13:14 [...] Po lyp Lesion Snare Tq 09/20/2020 completed 44445 CPT Implants Implanted JACKY Status Assigning Authority Procedure Date Lot Number Serial Number Manufacturing Date Expiration Date Distinct ID Code Brand Name Model Number Tendon/lig ament bone anchor, bioabsorba ble 0100 8888 6731 1282 1726 1031 1015 0260 43 Active FDA Left shoulder rotator cuff repair 03/23 [id number] 12/18/2025 Arthre x(R) AR-2326 BCC Tendon/lig ament bone anchor, bioabsorba ble 0100 8888 6702 7312 1725 1130 1014 6820 01 Active FDA Left shoulder rotator cuff repair 03/23 [id number] 01/17/2025 Arthre x(R) AR-2600 SBS-4 Problems Problem Start Date Resolved Date Status Code Code System DEPRESSION 12/27/2021 resolved 27992720 SNOMED-C T HYPERTENSION 12/27/2021 resolved 09365805 SNOMED -CT Allergies and Adverse Reactions Allergy Substance Reaction Severity Start Date Concern Status Co de Code System No Known Allergies Active 480562369 SNO MED-CT Plan of Treatment MRI UPPER EXT JOINT W/O CONTRAST 2021 US ABDOMEN LIMITED 1 ORGAN 06/12/2021 Encounters Encounter Diagnosis Start Date Code Code Sys tem Encounter for screening for malignant neoplasm of colo n 09/20/2020 SNOMED-CT Personal Care Team Section Performer Name Performer Role Active Date Inactive Da te
--- OUTSIDE RECORDS SUMMARY | 2024-02-27 10:47 | XMS_ITS | Encounter Summary ---
Author Organization [facility] Address [address] [place] [address] Care Team Providers Care High School Band Director Name Role Phone Jeff Pfeiffer MD Primary Care Provide r Encounter Details Date Type Department Care Team (Late st Contact Info) Description 05/19/2020 Lab Requisition [facility] Pathology & Laboratory Medicine - [facility] [address] [place] [address] Outr Resulting Lab, Provider Social History Tobacco [...] 0.0 - 4.5 ng/mL 05/19/2020 22:33 EDT [facility] Blood VENOUS BLOOD / Unknown 05/19/2020 9:04 EDT 05/19/2020 21:11 EDT Narrative [facility] - 05/19/2020 22:33 EDT NOTE: Serum PSA concentration should not be interpreted as absolute evidence for the presence or absence of malignant disease. Assayed on Siemens ADVIA [employer]erred Systems Solutionsaur XPT using chemiluminescent technology.??Values obtained by using different assay methods cannot be used interchangeably. us Provider Outr Resulting Lab CHEMISTRY & BLOOD GA S ORDERABLES Final Result [facility] [address] [place] [address] documented in this encounter Visit Diagnoses Not on filedocumented in this encounter Care Teams High School Band Director Relationship Specialty Start Date End Date Jeff Pfeiffer MD [address] [place] [address] PCP - General 08/27/22 documented as of this encounter
--- OUTSIDE RECORDS SUMMARY | 2024-02-27 10:47 | XMS_ITS | Encounter Summary ---
Author Organization [facility] Address [address] [place] [address] Care Team Providers Care Laboratory Animal Facility Supervisor Name Role Phone Jeff Pfeiffer MD Primary Care Provide r Encounter Details Date Type Department Care Team (Late st Contact Info) Description 05/24/2022 Lab Requisition [facility] Pathology & Laboratory Medicine - [facility] [address] [place] [address] Outr Resulting Lab, Provider Social History Tobacco [...] PSA 4.8(H) <=4.5 ng/mL 05/24/2022 22:51 EDT [facility] Blood VENOUS BLOOD / Unknown 05/24/2022 9:15 EDT 05/24/2022 21:39 EDT Narrative [facility] - 05/24/2022 22:51 EDT NOTE: Serum PSA concentration should not be interpreted as absolute evidence for the presence or absence of malignant disease. Assayed on Siemens ADVIA Centaur XPT using chemiluminescent technology.??Values obtained by using different assay methods cannot be used interchangeably. us Provider Outr Resulting Lab CHEMISTRY & BLOOD GA S ORDERABLES Final Result [facility] [address] [place] [address] documented in this encounter Visit Diagnoses Not on filedocumented in this encounter Care Teams Laboratory Animal Facility Supervisor Relationship Specialty Start Date End Date Jeff Pfeiffer MD [address] [place] [id number] PCP - General 08/27/22 documented as of this encounter
--- OUTSIDE RECORDS SUMMARY | 2024-02-27 10:47 | XMS_ITS | Encounter Summary ---
Author Organization [facility] Address [address] [place] [address] Care Team Providers Care Tire Center Supervisor Name Role Phone Jeff Pfeiffer MD Primary Care Provide r Encounter Details Date Type Department Care Team (Late st Contact Info) Description 06/20/2022 Lab Requisition [facility] Pathology & Laboratory Medicine - [facility] [address] [place] [address] Outr Resulting Lab, Provider Social History Tobacco [...] PSA 5.0(H) <=4.5 ng/mL 06/20/2022 22:12 EDT [facility] Blood VENOUS BLOOD / Unknown 06/20/2022 10:05 EDT 06/20/2022 21:21 EDT Narrative [facility] - 06/20/2022 22:12 EDT NOTE: Serum PSA concentration should not be interpreted as absolute evidence for the presence or absence of malignant disease. Assayed on Siemens ADVIA Centaur XPT using chemiluminescent technology.??Values obtained by using different assay methods cannot be used interchangeably. us Provider Outr Resulting Lab CHEMISTRY & BLOOD GA S ORDERABLES Final Result [facility] [address] [place] [address] documented in this encounter Visit Diagnoses Not on filedocumented in this encounter Care Teams Tire Center Supervisor Relationship Specialty Start Date End Date Jeff Pfeiffer MD [address] [place] [id number] PCP - General 08/27/22 documented as of this encounter
--- OUTSIDE RECORDS SUMMARY | 2024-02-27 10:47 | XMS_ITS | Encounter Summary ---
Author Organization [facility] Address [address] [place] [address] Care Team Providers Care Hr Shared Services Consultant Name Role Phone Jeff Pfeiffer MD Primary Care Provide r Encounter Details Date Type Department Care Team (Late st Contact Info) Description 05/24/2021 Lab Requisition [facility] Pathology & Laboratory Medicine - [facility] [address] [place] [address] Outr Resulting Lab, Provider Social History Tobacco [...] PSA 3.1 <=4.5 ng/mL 05/24/2021 17:35 EDT [facility] Blood VENOUS BLOOD / Unknown 05/23/2021 8:54 EDT 05/24/2021 16:31 EDT Narrative [facility] - 05/24/2021 17:35 EDT NOTE: Serum PSA concentration should not be interpreted as absolute evidence for the presence or absence of malignant disease. Assayed on Siemens ADVIA Centaur XPT using chemiluminescent technology.??Values obtained by using different assay methods cannot be used interchangeably. us Provider Outr Resulting Lab CHEMISTRY & BLOOD GA S ORDERABLES Final Result [facility] [address] [place] [address] documented in this encounter Visit Diagnoses Not on filedocumented in this encounter Care Teams Hr Shared Services Consultant Relationship Specialty Start Date End Date Jeff Pfeiffer MD [address] [place] [address] PCP - General 08/27/22 documented as of this encounter
--- NOTE | 2024-02-27 11:01 | DI.RAD_ITS ---
Exam(s) XR CHEST 2V PA LATERAL EXAM: XR CHEST 2V PA LATERAL CLINICAL HISTORY: R05.3 Chronic cough x 8-9 mos, hx prostate CA TECHNIQUE: 2D digital imaging was performed of the chest. Two images were obtained. PA and lateral views were obtained. COMPARISON: CR,XR XR RIBS LT W PA LAT CHEST from 10/24/2020 FINDINGS: MEDIASTINUM: Normal. HEART: Normal. PULMONARY VASCULATURE: Normal. LUNGS: Clear. PLEURAL SPACE: No pleural effusion or pneumothorax. BONE:Within normal limits for the patient's age. OTHER FINDINGS:Normal. IMPRESSION: No acute pulmonary findings. DATA REPOSITORY: RADIATION DOSE DELIVERED:
== END 2024-02-27 10:55 ==
LOC: DI 10:39
PROVIDERS: PCP Family Medicine; Visit Provider Family Medicine
DX: R05.3 Chronic cough (principal)
CPT/HCPCS: 76536; 71046

== ENCOUNTER 2024-03-05 00:20 | Outpatient (CLI) | payer MEDICARE, SELFPAY ==
--- NOTE | 2024-03-05 | DI.CT_ITS ---
Exam(s) CT NECK W EXAM: CT NECK W CLINICAL HISTORY: Localized swelling, mass, or lump, neck, R22.1; abnl findings on US 03/09/24. TECHNIQUE: Imaging Protocol: Axial computed tomography images with coronal and sagittal reformatted images were created and reviewed CONTRAST MATERIAL: Intravenous: Omnipaque 350 Contrast volume:100 ml contrast COMPARISON: US US SOFT TISSUE HEAD OR NECK from 02/27/2024 FINDINGS: Parotids: Normal. Submandibular glands: 2 adjacent nodules are demonstrated in the right submandibular gland, measuring 1.3 and 1 cm. The left submandibular gland is normal. Normal. Thyroid gland: Normal. Lymph nodes: No abnormally enlarged lymph nodes.. Carotids arteries: Mild calcification at the common carotid bulbs. No significant stenosis or dissec tion. Vertebral arteries: No significant stenosis or dissection. Soft tissues: The floor the mouth is unremarkable. The tonsils and adenoids are unremarkable. The epiglottis and vocal cords are within normal limits. Lungs: Images through both lung apices are unremarkable. Bones: Degenerative changes of the cervical spine. Visualized portions of the brain and orbits: Unremarkable. Sinuses and mastoids: Clear. IMPRESSION: Two small small adjacent masses in the right submandibular gland. No evidence of adenopathy. Findin gs may represent benign mixed tumor, adenoid cystic carcinoma or adenopathy. RADIATION DOSE DELIVERED: 281.41mGy.cm Total DLP DATA REPOSITORY: All CT scans at this facility are submitted to the National Radiology Data Registry (NRDR) Dose Index Registry (DIR) with the [employer] (ACR). RADIATION OPTIMIZATION: All CT scans at this facility use at least one of these dose optimization te chniques: automated exposure control; mA and/or kV adjustment per patient size (includes targeted exa ms where dose is matched to clinical indication); or iterative reconstruction.
[2024-03-05 08:32] LABS: CREATININE 1.1 mg/dL (0.70-1.30); Estimated GFR 73.12 (mL/min/1.73m2)
[2024-03-05] MEDS: Normal Saline - Diluent 50 ML VIAL IJ (08:50)
[2024-03-05] MEDS: Omnipaque 350 MG/ML 100 ML BTL IJ (08:51)
== END 2024-03-05 00:40 ==
LOC: DI 00:20
PROVIDERS: PCP Family Medicine; Visit Provider Family Medicine
DX: R22.1 Localized swelling, mass and lump, neck (principal)
CPT/HCPCS: 70491; 82565; J3490

== ENCOUNTER 2024-03-24 00:27 | Outpatient (CLI) | payer MEDICARE, SELFPAY ==
--- OUTSIDE RECORDS SUMMARY | 2024-03-24 00:37 | XMS_ITS ---
Author Organization [facility] [place] [address] Care Team Providers Care Dock Loader Name Role Phone Jeff Pfeiffer MD Primary Care Provider [phone] Active Problems Problem Noted Date Diagnosed Date Malignant neoplasm of prostate 06/14/2023 Cancer Staging:Clinical:Stage IIB(cT1c, cN0, cM0, PSA: 8.6, Grade Group: 2) - Signed by Leroy Berumen MD on 06/14/2023 Current Oncology Plans Leuprolide (Lupron Depot) Injection ([facility]) Adult* Plan Start Date:03/10/2024 Plan Provider:Leroy Berumen MD Linked Problems Malignant neoplasm of prosta te Treatment Medications No medications scheduled. Leuprolide (Lupron Depot) Injection ([facility], [facility]) Adult* Plan Start Date:10/18/2023 Plan Provider:Leroy Berumen MD Linked Problems Malignant neoplasm of prosta te Treatment Medications No medications scheduled. Past Plans Therapy Plan 1 Plan Name Start Date Discontinue Date Treatment Medications Discontinue Reason Plan Provider Degarelix (Firmagon) Injection ([facility] HemOnc) New Patient Induction 07/12/2023 10/17/2023 No medications scheduled. Entered In Error Leroy Berumen MD Radiation Treatments * No radiation treatments are documented for this patient in [facility]. Treatments may have been administered in another system.
--- OUTSIDE RECORDS SUMMARY | 2024-03-24 00:37 | XMS_ITS | Encounter Summary ---
Author Organization [facility] Address [facility] [place] [address] Care Team Providers Care Binder Folder Operator Name Role Phone Jeff Pfeiffer MD Primary Care Provider [phone] Encounter Details Date Type Department Care Team (Latest Contact Info) Description 03/16/2024 Travel Social History Tobacco Use Types Packs/Day [...] Care Team (Late st Contact Info) Description 03/24/2024 9:30 AM EST Scheduled View Only Radiation Oncology at [address] [phone] 04/17/2024 9:30 AM EST TH Visit (TeleHealth) Radiation Oncology at [address] [address] Leroy Berumen MD [address] [place] [address] DR RADIATION ONCOLOGY [place], [place] [address] documented as of this encounter Visit Diagnoses Not on filedocumented in this encounter Care Teams Binder Folder Operator Relationship Specialty Start Date End Date Jeff Pfeiffer MD [address] [place] [address] PCP - General Family Medicine 03/12/23 documented as of this encounter
--- OUTSIDE RECORDS SUMMARY | 2024-03-24 00:37 | XMS_ITS | Encounter Summary ---
Author Organization [facility] Address [facility] [place] [address] Care Team Providers Care Horticulture Teacher Name Role Phone Jeff Pfeiffer MD Primary Care Provider [phone] Encounter Details Date Type Department Care Team (Latest Contact Info) Description 03/09/2024 Travel Social History Tobacco Use Types Packs/Day Years Used Date Smoking Tobacco: Former Cigarettes Q uit: 1989 Smokeless Tobacco: Never Alcohol Use Standard Drinks/Week Comments Yes 15 (1 standard drink = 0.6 oz pu re alcohol) [facility] Utilities Answer Date Recorded In [...] place to sleep or slept in a jail (including now)? No 06/19/2023 Sex and Gender Information Value Date Recorded Sex Assigned at Not on file Gender Identity Not on file Sexual Orientation Not on file documented as of this encounter Plan of Treatment Upcoming Encounters Date Type Department Care Team (Late st Contact Info) Description 03/24/2024 9:30 AM EST Scheduled View Only Radiation Oncology at [address] [phone] 04/17/2024 9:30 AM EST TH Visit (TeleHealth) Radiation Oncology at [address] [phone] Leroy Berumen MD [address] [place] [address] DR RADIATION ONCOLOGY [place], [place] [address] documented as of this encounter Visit Diagnoses Not on filedocumented in this encounter Care Teams Horticulture Teacher Relationship Specialty Start Date End Date Jeff Pfeiffer MD [address] [place] [address] PCP - General Family Medicine 03/12/23 documented as of this encounter
--- OUTSIDE RECORDS SUMMARY | 2024-03-24 00:37 | XMS_ITS | Encounter Summary ---
Author Organization [facility] Address [facility] [place] [address] Care Team Providers Care Face Man Name Role Phone Jeff Pfeiffer MD Primary Care Provider [phone] Encounter Details Date Type Department Care Team (Late st Contact Info) Description 03/16/2024 Notes Only Radiation Oncology at [address] [phone] Jacklyn Ignacio, RN Social History Tobacco Use Types Packs/Day Years Used Date Smoking Tobacco: Former Cigarettes Q uit: 1989 Smokeless Tobacco: Never Alcohol Use Standard Drinks/Week Comments Yes 15 (1 standard drink = 0.6 oz pu re alcohol) [facility] Utilities Answer Date Recorded In the [...] as of this encounter Progress Notes * Jacklyn Ignacio RN - 03/16/2024 10:18 AM EST Radiation Oncology Nursing on Treatment Note Patient has received 5500 cGy to the prostate/proximal SV/pelvis for treatment of prostate cancer. Side effects that patient is experiencing: Constipation Assessment: Reports no good BM in 2.5-3 weeks. Has small movement when sitting to void. Feels full.Denies nausea, vomiting. Endorses passing gas and some cramping. States that Dr. Berumen mentioned taking Metamucil last Saturday but he has not yet done so. Continues to follow LRD, backing off imodium. Anticipatory guidance/ interventions: Instructed to start Metamucil per package instructions and educated regarding action of this medication. Instructed to stop imodium for now and to use only prn. Instructed to continue to drink adequate fluids Instructed him to reach out if constipation not helped by these measures or worsens. Other: He verbalized understanding and agreement with plan above. Dr. Berumen updated via this note. Plan: Daily nursing otv prn to assess GI function or other new concerns. documented in this encounter Plan of Treatment Upcoming Encounters Date Type Department Care Team (Late st Contact Info) Description 03/24/2024 9:30 AM EST Scheduled View Only Radiation Oncology at [address] [phone] 04/17/2024 9:30 AM EST TH Visit (TeleHealth) Radiation Oncology at [address] [phone] Leroy Berumen MD [address] [place] [address] [place] [address] documented as of this encounter Visit Diagnoses Not on filedocumented in this encounter Care Teams Face Man Relationship Specialty Start Date End Date Jeff Pfeiffer MD [address] [place] [address] PCP - General Family Medicine 03/12/23 documented as of this encounter
--- OUTSIDE RECORDS SUMMARY | 2024-03-24 00:37 | XMS_ITS | Encounter Summary ---
Author Organization [facility] Address [facility] [place] [address] Care Team Providers Care Jet Dyeing Machine Operator Name Role Phone Jeff Pfeiffer MD Primary Care Provider [phone] Encounter Details Date Type Department Care Team (Late st Contact Info) Description 03/20/2024 9:25 AM EST Office Visit Radiation Oncology at [address] [phone] Leroy Berumen MD [address] [place] [address] [place] [address] Malignant neoplasm of prostate Social History Tobacco Use Types Packs/Day Years Used Date Smoking Tobacco: Former Cigarettes Q uit: 1989 Smokeless Tobacco: Never Alcohol Use Standard Drinks/Week Comments Yes 15 (1 standard drink = 0.6 oz pu re alcohol) [facility] Utilities Answer Date Recorded In the past 12 months has th e [employer], gas, oil, or water [employer] threatened to shut off services in your [...] place to sleep or slept in a alf (including now)? No 06/19/2023 Sex and Gender Information Value Date Recorded Sex Assigned at Not on file Gender Identity Not on file Sexual Orientation Not on file documented as of this encounter Last Filed Vital Signs Vital Sign Reading Time Taken Comments Blood Pressure 131/70 03/20/2024 9:28 AM EST Pulse 60 03/20/2024 9:28 AM EST Temperature 36.2 ??C (97.1 ??F) 03/20/2024 9:28 AM ES T Respiratory Rate 16 03/20/2024 9:28 AM EST Oxygen Saturation 100% 03/20/2024 9:28 AM EST Inhaled Oxygen Concentration - - Weight - - Height - - Body Mass Index - - documented in this encounter Progress Notes * Leroy Berumen MD - 03/20/2024 9:25 AM EST Images from the original note were not included. f [facility] Medicine Radiation Oncology Radiation Oncology On-treatment [...] mg 01/10/2024 7.5 mg 02/07/2024 7.5 mg 03/10/2024 7.5 mg Modality: VMAT Treatment Site Prostate + Proximal SV / Pelvis Prescribed Dose 70Gy in 28 fractions / 50.4 Gy in 28 fractions Current Dose: 65 Gy in 26 fractions Interval Clinical Course General Overall feels poorly. GI Taking small amounts of metamucil. Ongoing frequent, loose BMs and passing mucoid stools. Not following LRD (eating nuts, salads, berries, etc). Nocturia 1x/nt at baseline, currently up 4x/nt. Dysuria is new this week. Taking Flomax 0.8mg QHS and Aleve BID. We saw him earlier this week and recommended he start decadron which he has not yet picked up. Baseline IPSS history is listed below. 06/19/2023 10:24 AM 06/19/2023 10:25 AM Prostate Today's Scores Sexual Health Inventory for Men 25 25 International Prostate Symptom Score 7 ( Mild LUTS) Pain score today is 0/10. Performance Status [...] confined to bed or chair Medications Medications 03/13/24 0933 Medication Sig Taking? dexAMETHasone (Decadron) 4 mg tablet Take 1 tablet by mouth daily for 7 days. naproxen sodium (ALEVE) 220 mg Capsule Take 1 capsule by mouth 2 times daily as needed. atorvastatin (Lipitor) 40 mg tablet Take 20 mg by mouth Daily @ 0600. cholecalciferol (Vitamin D3) 1,000 unit tablet Take 1,000 Units by mouth daily. tamsulosin (Flomax) 0.4 mg capsule Take 2 capsules by mouth nightly. Taking 0.8 mg ubiquinone (Ubiquinone) 100 mg capsule Take 125 mg by mouth daily. acyclovir (Zovirax) 400 mg tablet Take 400 mg by mouth as needed (coldsores). Exam Patient Vitals for the past 24 hrs: Temp Pulse Resp BP SpO2 03/20/24 0928 36.2 ??C (97.1 ??F) 60 16 131/70 100 % General: Appears well, in no distress Imaging/Labs Interval setup imaging has been checked and approved. See [employer] for details. 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 Lupron complete. Diarrhea: Reinforced LRD, Imodium PRN. LUTS Rec start Decadron x 7d qAC, d/c Aleve. Cont Flomax 0.8mg QHS. Followup: RV w RN team early next week for symptom check. Anticipate recheck PSA/T in 4-6 weeks. No orders of the defined types were placed in this encounter. National Cancer [place] (NCI) Comprehensive Cancer Center [employer] Commission on Cancer (ACS [place]) Accredited Cancer Program [employer] (ACR) Accredited Radiation Oncology Program documented in this encounter Plan of Treatment Upcoming Encounters Date Type Department Care Team (Late st Contact Info) Description 03/24/2024 9:30 AM EST Scheduled View Only Radiation Oncology at [address] [phone] 04/17/2024 9:30 AM EST TH Visit (TeleHealth) Radiation Oncology at [address] [phone] Leroy Berumen MD [address] [place] [address] [place] [address] Scheduled Orders Name Type Priority Associated Diagnoses Orde r Schedule PSA (Ultrasensitive) Lab Routine Malignant neoplasm of prostate Expected: 04/17/2024 (Approximate), Expires: 10/17/2024 Testosterone, total Lab Routine Malignant neoplasm of prostate Expected: 04/17/2024 (Approximate), Expires: 10/17/2024 documented as of this encounter Visit Diagnoses Diagnosis Malignant neoplasm of prostate documented in this encounter Care Teams Jet Dyeing Machine Operator Relationship Specialty Start Date End Date Jeff Pfeiffer MD [address] [place] [address] PCP - General Family Medicine 03/12/23 documented as of this encounter
--- OUTSIDE RECORDS SUMMARY | 2024-03-24 00:37 | XMS_ITS | Encounter Summary ---
Author Organization [facility] Address [facility] [place] [address] Care Team Providers Care Rock Picker Name Role Phone Jeff Pfeiffer MD Primary Care Provider [phone] Encounter Details Date Type Department Care Team (Late st Contact Info) Description 03/13/2024 9:45 AM EST Office Visit Radiation Oncology at [address] [phone] Leroy Berumen MD [address] [place] [address] [place] [address] Malignant neoplasm of prostate Social History Tobacco Use Types Packs/Day Years Used Date Smoking Tobacco: Former Cigarettes Q uit: 1989 Smokeless Tobacco: Never Alcohol Use Standard Drinks/Week Comments Yes 15 (1 standard drink = 0.6 oz pu re alcohol) [facility] Utilities Answer Date Recorded In the past 12 months has th e [employer], gas, oil, or water [employer] threatened to shut off services in your [...] place to sleep or slept in a penitentiary (including now)? No 06/19/2023 Sex and Gender Information Value Date Recorded Sex Assigned at Not on file Gender Identity Not on file Sexual Orientation Not on file documented as of this encounter Last Filed Vital Signs Vital Sign Reading Time Taken Comments Blood Pressure 122/71 03/13/2024 9:31 AM EST Pulse 68 03/13/2024 9:31 AM EST Temperature 36 ??C (96.8 ??F) 03/13/2024 9:31 AM EST Respiratory Rate 16 03/13/2024 9:31 AM EST Oxygen Saturation 100% 03/13/2024 9:31 AM EST Inhaled Oxygen Concentration - - Weight - - Height - - Body Mass Index - - documented in this encounter Progress Notes * Leroy Berumen MD - 03/13/2024 9:45 AM EST Images from the original note were not included. f [facility] Medicine Radiation Oncology Radiation Oncology On-treatment Visit [...] 50.4 Gy in 28 fractions Current Dose: 52.5 Gy in 21 fractions Interval Clinical Course General Overall feels fair. GI Following LRD, taking Imodium PRN. Urinary frequency improved with Aleve BID. Nocturia 1x/nt at baseline, currently up 2x/nt. No dysuria. Takes Flomax 0.8mg QHS and Aleve BID. Baseline IPSS history is listed below. 06/19/2023 [...] Medications Medications 03/13/24 0933 Medication Sig Taking? naproxen sodium (ALEVE) 220 mg Capsule Take 1 capsule by mouth 2 times daily as needed. Yes atorvastatin (Lipitor) 40 mg tablet Take 20 mg by mouth Daily @ 0600. Yes cholecalciferol (Vitamin D3) 1,000 unit tablet Take 1,000 Units by mouth daily. Yes tamsulosin (Flomax) 0.4 mg capsule Take 2 capsules by mouth nightly. Taking 0.8 mg Yes ubiquinone (Ubiquinone) 100 mg capsule Take 125 mg by mouth daily. Yes acyclovir (Zovirax) 400 mg tablet Take 400 mg by mouth as needed (coldsores). Yes Exam Patient Vitals for the past 24 hrs: Temp Pulse Resp BP SpO2 03/13/24 0931 36 ??C (96.8 ??F) 68 16 122/71 100 % General: Appears well, in no distress Imaging/Labs Interval setup imaging has been checked and approved. See [facility] for details. 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 Continue as planned. Lupron complete. LUTS Rec CONT Flomax QHS, Aleve BID Followup: Return to clinic next week for on treatment check. No orders of the defined types were placed in this encounter. National Cancer [place] (NCI) Comprehensive Cancer Center [employer] [employer] Commission on Cancer (ACS [place]) Accredited Cancer Program [employer] [place] [employer] (ACR) Accredited Radiation Oncology Program documented in this encounter Plan of Treatment Upcoming Encounters Date Type Department Care Team (Late st Contact Info) Description 03/24/2024 9:30 AM EST Scheduled View Only Radiation Oncology at [address] [phone] 04/17/2024 9:30 AM EST TH Visit (TeleHealth) Radiation Oncology at [address] [phone] Leroy Berumen MD [address] [place] [address] RADIATION ONCOLOGY [place], [place] [id number] documented as of this encounter Visit Diagnoses Diagnosis Malignant neoplasm of prostate documented in this encounter Care Teams Rock Picker Relationship Specialty Start Date End Date Jeff Pfeiffer MD [address] [place] [address] PCP - General Family Medicine 03/12/23 documented as of this encounter
--- OUTSIDE RECORDS SUMMARY | 2024-03-24 00:37 | XMS_ITS | Encounter Summary ---
Author Organization [facility] Address [facility] [place] [address] Care Team Providers Care Kettle Tender Name Role Phone Jeff Pfeiffer MD Primary Care Provider [phone] Encounter Details Date Type Department Care Team (Latest Contact Info) Description 03/23/2024 Travel Social History Tobacco Use Types Packs/Day Years Used Date Smoking Tobacco: Former Cigarettes Q uit: 1989 Smokeless Tobacco: Never Alcohol Use Standard Drinks/Week Comments Yes 15 (1 standard drink = 0.6 oz pu re alcohol) [facility] Utilities Answer Date Recorded In [...] Scheduled View Only Radiation Oncology at [address] [address] 04/17/2024 9:30 AM EST TH Visit (TeleHealth) Radiation Oncology at [address] [address] Leroy Berumen MD [address] [place] [address] DR RADIATION ONCOLOGY [place], [place] [address] documented as of this encounter Visit Diagnoses Not on filedocumented in this encounter Care Teams Kettle Tender Relationship Specialty Start Date End Date Jeff Pfeiffer MD [address] [place] [address] PCP - General Family Medicine 03/12/23 documented as of this encounter
--- OUTSIDE RECORDS SUMMARY | 2024-03-24 00:37 | XMS_ITS | Encounter Summary ---
Author Organization [facility] Address [facility] [place] [address] Care Team Providers Care Glass Production Machine Operator Name Role Phone Jeff Pfeiffer MD Primary Care Provider [phone] Reason for Visit * Reason Onset Date Comments Diarrhea 03/19/2024 Encounter Details Date Type Department Care Team (Late st Contact Info) Description 03/19/2024 Nurse Triage Radiation Oncology at [address] [address] Genia Patrick RN Diarrhea Social History Tobacco Use Types Packs/Day Years Used Date Smoking Tobacco: Former Cigarettes Q uit: 1989 Smokeless Tobacco: Never Alcohol Use Standard Drinks/Week Comments Yes 15 (1 standard drink = 0.6 oz pu re alcohol) [facility] Utilities Answer Date Recorded In [...] encounter Miscellaneous Notes * Telephone Encounter - CelinaGenia RN - 03/19/2024 10:54 AM EST Caller: Rolando Relationship: Self Clarified Two Patient Identifiers: [x] Diagnosis: Prostate Cancer Treatment: Patient has received 6250 cGy to the prostate/proximal SV/pelvis for treatment of prostate cancer. Reason for Call: Sore Anal area Assessment: Rolando came in today wondering if there was a recommendation for an OTC salve that hecould use on his bottom because it was very sore. He spoke with a nurse on 03/16/24 d/t c/o constipation. At that time, he was recommended to start taking the metamucil per Dr. Berumen's instructions from Saturday03/13/24 as he had not started this yet. He also stopped taking the imodium. He states that he did follow these instructions and feels like his bowel movements are more controlled. He reports only taking a small tsp of metamucil daily, has stopped taking imodium, and is adding more roughage to his diet. Rolando reports that he has been having much softer stools and leaks a little everytime he urinates have approxiametly 20+ bowel movements a day. He also noticed recently that his bowel movements appear to have more mucus which looks clear or light brown and almost pussy. Rolando reports that his urination continues to worsen slightly. He is having burning with urination. No blood noted in urination. He is currently getting up 6x at night. He takes Aleve BID and Tamsulosin 0.8mg every night. Recommendations/Plan: Dr. Berumen was consulted and recommended that he decrease the metamucil to maybe a half dose but continue daily to prevent constipation. He also recommended reintroducing the imodium slowly as he is having too many bowel movements which is causing the sore anus. He also recommended that Rolando continue to stick with the low residue diet and not eat roughage as this could increase the diarrhea. He recommended specifically hemorrhoid cream but Rolando could use another OTC cream of his choice for that area. Dr. Berumen is sending in a prescription to [facility] in [place], [place] for dexamethasone 4mg daily for one week. This order should hopefully be available to citrus picker later today or early tomorrow. We will continue to keep his OTV scheduled for tomorrow to check in on his symptoms then. Rolando verbalized understanding of instructions and agreement with plan. Reminded Rolando to call back with any questions/concerns. Select Specific Decision Support Tool Used: Other: consulted with provider Name of Guideline/Protocol Used: N/A documented in this encounter Plan of Treatment Upcoming Encounters Date Type Department Care Team (Late st Contact Info) Description 03/24/2024 9:30 AM EST Scheduled View Only Radiation Oncology at [address] [phone] 04/17/2024 9:30 AM EST TH Visit (TeleHealth) Radiation Oncology at [address] [phone] Leroy Berumen MD [address] [place] [address] [place] [address] documented as of this encounter Visit Diagnoses Diagnosis Malignant neoplasm of prostate- Primary documented in this encounter Care Teams Glass Production Machine Operator Relationship Specialty Start Date End Date Jeff Pfeiffer MD [address] [place] [address] PCP - General Family Medicine 03/12/23 documented as of this encounter
--- OUTSIDE RECORDS SUMMARY | 2024-03-24 00:37 | XMS_ITS | Encounter Summary ---
Author Organization [facility] Address [facility] [place] [address] Care Team Providers Care Oracle Bpm Consultant Name Role Phone Jeff Pfeiffer MD Primary Care Provider [phone] Encounter Details Date Type Department Care Team (Latest Contact Info) Description 03/18/2024 Travel Social History Tobacco Use Types Packs/Day Years Used Date Smoking Tobacco: Former Cigarettes Q uit: 1989 Smokeless Tobacco: Never Alcohol Use Standard Drinks/Week Comments Yes 15 (1 standard drink = 0.6 oz pu re alcohol) [facility] Utilities Answer Date Recorded In the [...] Scheduled View Only Radiation Oncology at [address] [phone] 04/17/2024 9:30 AM EST TH Visit (TeleHealth) Radiation Oncology at [address] [phone] Leroy Berumen MD [address] [place] [address] DR RADIATION ONCOLOGY [place], [place] [address] documented as of this encounter Visit Diagnoses Not on filedocumented in this encounter Care Teams Oracle Bpm Consultant Relationship Specialty Start Date End Date Jeff Pfeiffer MD [address] [place] [address] PCP - General Family Medicine 03/12/23 documented as of this encounter
--- OUTSIDE RECORDS SUMMARY | 2024-03-24 00:37 | XMS_ITS | Encounter Summary ---
Author Organization [facility] Address [facility] [place] [address] Care Team Providers Care Program Advocate Name Role Phone Jeff Pfeiffer MD Primary Care Provider [phone] Reason for Visit * Reason Comments Chemotherapy Injections * Treatment/Therapy Plan Authorization (Routine) - Authorized Specialty Diagnoses / Procedures Referred By Neil keller Referred To Contact Hematology and Oncology Diagnoses Malignant neoplasm of prostate Leroy Berumen MD [address] [place] [address] [place] [address] St Hem Onc Infusion [address] [place] [phone] Referral ID Status Reason Start Date Expiration Date V isits Requested Visits Authorized [id number] Authorized 03/04/2024 03/04/2025 99 99 Encounter Details Date Type Department Care Team (Late st Contact Info) Description 03/10/2024 8:30 AM EST Infusion Hematology Oncology at [address] [phone] Malignant neoplasm of prostate [...] Sign Reading Time Taken Comments Blood Pressure 135/71 03/10/2024 9:01 AM EST Pulse 62 03/10/2024 9:01 AM EST Temperature 35.7 ??C (96.2 ??F) 03/10/2024 9:01 AM ES T Respiratory Rate 18 03/10/2024 9:01 AM EST Oxygen Saturation 100% 03/10/2024 9:01 AM EST Inhaled Oxygen Concentration - - Weight 75.8 kg (167 lb 3.2 oz) 03/10/2024 9:01 A M EST Height 177.8 cm (5' 10) 03/10/2024 9:01 AM EST Body Mass Index 23.99 03/10/2024 9:01 AM EST documented in this encounter Progress Notes * Korina Johns, RN - 03/10/2024 8:30 AM EST Infusion Note Diagnosis:Prostate Cancer [...] EST Scheduled View Only Radiation Oncology at [address] [phone] 04/17/2024 9:30 AM EST TH Visit (TeleHealth) Radiation Oncology at [address] [phone] Leroy Berumen MD [address] [place] [address] DR RADIATION ONCOLOGY [place], [place] [id number] documented as of this encounter Visit Diagnoses Diagnosis Malignant neoplasm of prostate documented in this encounter Administered Medications Inactive Administered Medications - up to 3 most recent administrations Medication Order MAR Action Action Date Dose Rate Site leuprolide (Lupron Depot) 7.5 mg intramuscular syringe kit 7.5 mg 7.5 mg, Intramuscular, ONCE, 1 dose, On Sat03/10/24 at 0930, Routine, This agent is restricted to outpatient use. Is this drug being given as an outpatient? Yes Given 03/10/2024 9:12 AM EST 7.5 mg Left Gluteal documented in this encounter Care Teams Program Advocate Relationship Specialty Start Date End Date Jeff Pfeiffer MD [address] [place] [address] PCP - General Family Medicine 03/12/23 documented as of this encounter
--- OUTSIDE RECORDS SUMMARY | 2024-03-24 00:37 | XMS_ITS | Clinical Summary ---
Author Organization Replaced By [facility] Address [facility] [place] [address] Care Team Providers Care Plastic Parts Fabricator Name Role Phone Jeff Pfeiffer MD Primary Care Provider [phone] Allergies No known active allergies Medications Medication Sig Dispensed Refills Start Date End Date Status atorvastatin (Lipitor) 40 mg tablet Take 20 mg by mouth Daily @ 0600. Active cholecalciferol (Vitamin D3) 1,000 unit tablet Take 1,000 Units by mouth daily. 05/22/2019 Active tamsulosin (Flomax) 0.4 mg capsule Take 2 capsules by mouth nightly. Taking 0.8 mg Active ubiquinone (Ubiquinone) 100 mg capsule Take 125 mg by mouth daily. 05/22/2019 Active acyclovir (Zovirax) 400 mg tablet Take 400 mg by mouth as needed (coldsores). 03/20/2023 Active naproxen sodium (ALEVE) 220 mg Capsule Take 1 capsule by mouth 2 times daily as needed. Active dexAMETHasone (Decadron) 4 mg tabletIndications:Ma lignant neoplasm of prostate Take 1 tablet by mouth daily for 7 days. 7 tablet 03/19/2024 03/26/2024 Active Active Problems Problem Noted Date Diagnosed Date Malignant neoplasm of prostate 06/14/2023 Cancer Staging:Clinical:Stage IIB(cT1c, cN0, cM0, PSA: 8.6, Grade Group: 2) - Signed by Leroy Berumen MD on 06/14/2023 Encounters Date Type Department Care Team Description 03/23/2024 Travel 03/20/2024 9:25 AM EST Office Visit Radiation Oncology at [address] [phone] Leroy Berumen MD Malignant neoplasm of prostate 03/20/2024 Travel 03/19/2024 Nurse Triage Radiation Oncology at [address] [place] [address] Genia Patrick RN Diarrhea 03/18/2024 Travel 03/16/2024 Notes Only Radiation Oncology at [address] [phone] Jacklyn Ignacio RN 03/16/2024 Travel 03/13/2024 9:45 AM EST Office Visit Radiation Oncology at [address] [phone] Leroy Berumen MD Malignant neoplasm of prostate 03/13/2024 Travel 03/11/2024 Travel 03/10/2024 8:30 AM EST Infusion Hematology Oncology at [address] [phone] Malignant neoplasm of prostate 03/09/2024 Travel 03/06/2024 10:00 AM EST Infusion Hematology Oncology at [address] [phone] 03/06/2024 9:25 AM EST Office Visit Radiation Oncology at [address] [phone] Sam James Jr., MD Malignant neoplasm of prostate 03/05/2024 Travel 03/04/2024 Orders Only Radiation Oncology at [address] [place] [address] Leroy Berumen MD 03/03/2024 Travel 03/02/2024 Telephone Radiation Oncology at [address] [address] Jacklyn Ignacio RN 03/02/2024 Travel 02/28/2024 9:25 AM EST Office Visit Radiation Oncology at [address] [address] Leroy Berumen MD Malignant neoplasm of prostate 02/28/2024 Travel 02/26/2024 Travel 02/24/2024 Travel 02/21/2024 10:10 AM EST Office Visit Radiation Oncology at [address] [phone] Jacob Cr MD Malignant neoplasm of prostate 02/20/2024 Travel 02/17/2024 Travel 02/14/2024 8:25 AM EST Office Visit Radiation Oncology at [address] [address] Leroy Berumen MD Malignant neoplasm of prostate 02/13/2024 Travel 02/07/2024 2:00 PM EST Infusion Hematology Oncology at [address] [address] Malignant neoplasm of prostate 02/07/2024 Travel 01/27/2024 10:00 AM EST Ancillary Appointment [place] [address] Leroy Berumen MD Malignant neoplasm of prostate 01/27/2024 7:50 AM EST - 01/27/2024 11:59 PM EST Hospital [place] [address] Leroy Berumen MD Malignant neoplasm of prostate Discharge Disposition: Home 01/27/2024 Travel 01/10/2024 8:30 AM EST Infusion Hematology Oncology at [address] [phone] Malignant neoplasm of prostate 01/10/2024 Travel 01/08/2024 9:00 AM EST Procedure visit Radiation Oncology at [address] [phone] Leroy Berumen MD Malignant neoplasm of prostate 01/08/2024 Travel 01/01/2024 3:00 PM EST Telephone Radiation Oncology at [address] [phone] Rad NurseSt Judge Pre Procedure Call 12/30/2023 Telephone Radiation Oncology at [address] [phone] Melba Soler from Last 3 Months Family History Medical [...] place to sleep or slept in a fdc (including now)? No 06/19/2023 Sex and Gender [...] Mass Index 23.99 03/10/2024 9:01 AM EST Plan of Treatment Upcoming Encounters Date Type Department Care Team (Late st Contact Info) Description 03/24/2024 9:30 AM EST Scheduled View Only Radiation Oncology at [address] [phone] 04/17/2024 9:30 AM EST TH Visit (TeleHealth) Radiation Oncology at [address] [phone] Leroy Berumen MD [address] [place] [address] DR RADIATION ONCOLOGY [place], [place] [id number] Health Maintenance Due Date Last Done Comments CT Colonography 1955 Colonoscopy 1955 Colorectal Cancer Screening 1955 FIT DNA 1955 FIT 1955 Sigmoidoscopy (10 year) with FIT yearly 1955 Sigmoidoscopy 1955 Hepatitis C Screening 1973 Tetanus/Diphtheria/Pertussis Vaccines (1 - Tdap) 03/25 Pneumoccocal Vaccine: 50+ (1 of 1 - PCV) 2005 Zoster [...] Body Interp Only (01/27/2024 11:05 AM EST) WORKSTATION ID [id number] RAD Anatomical Region Laterality Modality Abdomen Computed [...] who have questions please contact the health vp care management that requested your imaging first. ? Narrative 01/27/2024 11:09 AM EST EXAMINATION: CT [...] patients who have questions please contactthe health vp care management that requested your imaging first. Leroy Berumen MD IMG OUTSIDE INTERPRE TATION ORDERABLES * MRI Pelvis wo (Prostate) (01/27/2024 9:09 AM EST) WORKSTATION ID [id number] RAD Anatomical Region Laterality Modality Pelvis Magnetic Resonan ce Impressions 01/27/2024 1:25 PM EST Limited MRI for radiation treatment planning. Thank you for letting us participate in the care of this patient. ??If you are a health care provider and have any questions regarding this report, please contact the number below. ??For patients who have questions please contact the health vp care management that requested your imaging first. ? Narrative 01/27/2024 1:25 PM EST EXAMINATION: MRI [...] patients who have questions please contactthe health vp care management that requested your imaging first. Leroy Berumen MD IMG MRI ORDERABLES from Last 3 Months Care Teams Plastic Parts Fabricator Relationship Specialty Start Date End Date Jeff Pfeiffer MD [address] [place], [place] [id number] PCP - General Family Medicine 03/12/23
--- OUTSIDE RECORDS SUMMARY | 2024-03-24 00:37 | XMS_ITS | Encounter Summary ---
Author Organization [facility] Address [facility] [place] [address] Care Team Providers Care Flap Lining Binder Name Role Phone Jeff Pfeiffer MD Primary Care Provider [phone] Encounter Details Date Type Department Care Team (Latest Contact Info) Description 03/20/2024 Travel Social History Tobacco Use Types Packs/Day Years Used Date Smoking Tobacco: Former Cigarettes Q uit: 1989 Smokeless Tobacco: Never Alcohol Use Standard Drinks/Week Comments Yes 15 (1 standard drink = 0.6 oz pu re alcohol) [facility] Utilities Answer Date Recorded In the [...] EST Scheduled View Only Radiation Oncology at [address] [address] 04/17/2024 9:30 AM EST TH Visit (TeleHealth) Radiation Oncology at [address] [phone] Leroy Berumen MD [address] [place] [address] DR RADIATION ONCOLOGY [place], [place] [address] documented as of this encounter Visit Diagnoses Not on filedocumented in this encounter Care Teams Flap Lining Binder Relationship Specialty Start Date End Date Jeff Pfeiffer MD [address] [place] [address] PCP - General Family Medicine 03/12/23 documented as of this encounter
--- OUTSIDE RECORDS SUMMARY | 2024-03-24 00:37 | XMS_ITS | Encounter Summary ---
Author Organization [facility] Address [facility] [place] [address] Care Team Providers Care Portable Machine Sander Name Role Phone Jeff Pfeiffer MD Primary Care Provider [phone] Encounter Details Date Type Department Care Team (Latest Contact Info) Description 03/13/2024 Travel Social History Tobacco Use Types Packs/Day Years Used Date Smoking Tobacco: Former Cigarettes Q uit: 1989 Smokeless Tobacco: Never Alcohol Use Standard Drinks/Week Comments Yes 15 (1 standard drink = 0.6 oz pu re alcohol) [facility] Utilities Answer Date Recorded In [...] Scheduled View Only Radiation Oncology at [address] [address] 04/17/2024 9:30 AM EST TH Visit (TeleHealth) Radiation Oncology at [address] [phone] Leroy Berumen MD [address] [place] [address] DR RADIATION ONCOLOGY [place], [place] [phone] documented as of this encounter Visit Diagnoses Not on filedocumented in this encounter Care Teams Portable Machine Sander Relationship Specialty Start Date End Date Jeff Pfeiffer MD [address] [place] [address] PCP - General Family Medicine 03/12/23 documented as of this encounter
--- OUTSIDE RECORDS SUMMARY | 2024-03-24 00:37 | XMS_ITS | Encounter Summary ---
Author Organization [facility] Address [facility] [place] [address] Care Team Providers Care Goal Umpire Name Role Phone Jeff Pfeiffer MD Primary Care Provider [phone] Encounter Details Date Type Department Care Team (Latest Contact Info) Description 03/11/2024 Travel Social History Tobacco Use Types Packs/Day Years Used Date Smoking Tobacco: Former Cigarettes Q uit: 1989 Smokeless Tobacco: Never Alcohol Use Standard Drinks/Week Comments Yes 15 (1 standard drink = 0.6 oz pu re alcohol) [facility] Utilities Answer Date Recorded In the [...] Scheduled View Only Radiation Oncology at [address] [phone] 04/17/2024 9:30 AM EST TH Visit (TeleHealth) Radiation Oncology at [address] [phone] Leroy Berumen MD [address] [place] [address] DR RADIATION ONCOLOGY [place], [place] [address] documented as of this encounter Visit Diagnoses Not on filedocumented in this encounter Care Teams Goal Umpire Relationship Specialty Start Date End Date Jeff Pfeiffer MD [address] [place] [address] PCP - General Family Medicine 03/12/23 documented as of this encounter
--- OUTSIDE RECORDS SUMMARY | 2024-03-24 00:38 | XMS_ITS | Encounter Summary ---
Author Organization [facility] Address [facility] [place] [address] Care Team Providers Care Jaw Skinner Name Role Phone Jeff Pfeiffer MD Primary Care Provider [phone] Reason for Visit * Reason Onset Date Comments Pre Procedure Call 01/01/2024 Encounter Details Date Type Department Care Team (Late st Contact Info) Description 01/01/2024 3:00 PM EST Telephone Radiation Oncology at [address] [phone] Rad NurseSt Judge Pre Procedure Call Social History Tobacco Use Types Packs/Day Years Used Date Smoking Tobacco: Former Cigarettes Q uit: 1989 Smokeless Tobacco: Never Alcohol Use Standard Drinks/Week Comments Yes 15 (1 standard drink = 0.6 oz pu re alcohol) [facility] Utilities Answer Date Recorded In the [...] 3:08 PM EST Radiation Oncology Nurse Note [place], [place] Patient Information for Prostate Fiducial (Gold Coil) Placement Procedure Date: 01/08/24 Arrival Time: 829 Time of Procedure: 0900 Location: [place], [place] Why Fiducial Placement or also known [...] [ N/A ] Prescriptions to get filled: [facility] Prescription for Antibiotic: to prevent infection [ [...] be done at : [ X ] [facility] at the Radiation Oncology Department section 2K [ ] [facility] [place] [place] [Date: 01/27/24 ] [Time: arrive at 0810 ] For proper visualization of prostate, it is required that you have a moderately full bladder. This will require you to arrive 30 minutes before scheduled appointment and drink 2 glasses of water upon arrival. There are no restrictions with eating. How to reach us: [facility] [phone] For weekends and after hours: Call [facility] ask for the artist consultant radiation oncologist Patient was provided a printed copy of these instructions. This was reviewed with him. He states his questions have been answered and he verbalized understanding of these instructions. documented in this encounter Plan of Treatment Upcoming Encounters Date Type Department Care Team (Late st Contact Info) Description 03/24/2024 9:30 AM EST Scheduled View Only Radiation Oncology at [address] [phone] 04/17/2024 9:30 AM EST TH Visit (TeleHealth) Radiation Oncology at [address] [phone] Leroy Berumen MD [address] [place] [address] DR RADIATION ONCOLOGY [place], [place] [id number] documented as of this encounter Visit Diagnoses Diagnosis Malignant neoplasm of prostate- Primary documented in this encounter Care Teams Jaw Skinner Relationship Specialty Start Date End Date Jeff Pfeiffer MD [address] [place] [address] PCP - General Family Medicine 03/12/23 documented as of this encounter
--- OUTSIDE RECORDS SUMMARY | 2024-03-24 00:38 | XMS_ITS | Encounter Summary ---
Author Organization [facility] Address [facility] [place] [address] Care Team Providers Care Gauge Checker Name Role Phone Jeff Pfeiffer MD Primary Care Provider Reason for Referral * Diagnostic Test (Routine) - Closed Specialty Diagnoses / Procedures Referred By Contac t Referred To Contact Radiology Diagnoses Malignant neoplasm of prostate Procedures MRI Pelvis wo (Prostate) MRI Pelvis wwo (Prostate) Teetee Han MD [facility] [place] [address] [place] [address] Referral ID Status Reason Start Date Expiration Date V isits Requested Visits Authorized [id number] Closed Specialty Service Requested 10/18/2023 04/17/2025 1 1 Reason for Visit * Diagnostic Test (Routine) - Closed Specialty Diagnoses / Procedures [facility] Referred To Contact Radiology Diagnoses Malignant neoplasm of prostate Procedures MRI Pelvis wo (Prostate) MRI Pelvis wwo (Prostate) Teetee Han MD [facility] [place] [address] [place] [address] Referral ID Status Reason Start Date Expiration Date V isits Requested Visits Authorized [id number] Closed Specialty Service Requested 10/18/2023 04/17/2025 1 1 Encounter Details Date Type Department Care Team (Latest Contact Info) Description 01/27/2024 7:50 AM EST - 01/27/2024 11:59 PM EST Hospital Encounter MRI at [facility] [place] [address] Leroy Berumen MD [address] [place] [address] [place] [address] Malignant neoplasm of prostate Discharge Disposition: Home Social History Tobacco Use Types Packs/Day Years Used Date Smoking Tobacco: Former Cigarettes Q uit: 1989 Smokeless Tobacco: Never Alcohol Use Standard Drinks/Week Comments Yes 15 (1 standard drink = 0.6 oz pu re alcohol) [facility] Utilities Answer Date Recorded In the past [...] place to sleep or slept in a care home (including now)? No 06/19/2023 Sex and [...] 05/22/2019 tamsulosin (Flomax) 0.4 mg capsule Take 2 [...] tablet 01/01/2024 02/14/2024 LORazepam (Ativan) 1 mg tabletIndications:Malig nant neoplasm of prostate Take 1 tablet 1 hour prior to the procedure and bring the second tablet with you to the procedure incase you need a repeat dose. 2 tablet 01/01/2024 02/14/2024 levoFLOXacin (Levaquin) 500 mg tabletIndications:Malig nant neoplasm of prostate 1 tablet 1 hour before the procedure 1 tablet 01/01/2024 02/14/2024 documented as of this encounter Plan of Treatment Upcoming Encounters Date Type Department Care Team (Late st Contact Info) Description 03/24/2024 9:30 AM EST Scheduled View Only Radiation Oncology at [address] [phone] 04/17/2024 9:30 AM EST TH Visit (TeleHealth) Radiation Oncology at [address] [phone] Leroy Berumen MD [address] [place] [address] DR RADIATION ONCOLOGY [place], [place] [address] documented as of this encounter Procedures Procedure Name Priority Date/Time Associated Diagnosis Comments MRI PELVIS WO (PROSTATE) Routine 01/27/2024 9:09 AM EST Malignant neoplasm of prostate documented in this encounter Results * MRI Pelvis wo (Prostate) (01/27/2024 9:09 AM EST) WORKSTATION ID [id number] RAD Anatomical Region Laterality Modality Pelvis Magnetic Resonan ce Impressions 01/27/2024 1:25 PM EST Limited MRI for radiation treatment planning. Thank you for letting us participate in the care of this patient. ??If you are a health care provider and have any questions regarding this report, please contact the number below. ??For patients who have questions please contact the health complex care nurse that requested your imaging first. ? Narrative [...] patients who have questions please contactthe health complex care nurse that requested your imaging first. Leroy Berumen MD IMG MRI ORDERABLES documented in this encounter Visit Diagnoses Diagnosis Malignant neoplasm of prostate documented in this encounter Care Teams Gauge Checker Relationship Specialty Start Date End Date Jeff Pfeiffer MD [address] [place] [address] PCP - General Family Medicine 03/12/23 documented as of this encounter
--- OUTSIDE RECORDS SUMMARY | 2024-03-24 00:38 | XMS_ITS | Encounter Summary ---
Author Organization [facility] Address [facility] [place] [address] Care Team Providers Care Preventative Maintenance Technician Name Role Phone Jeff Pfeiffer MD Primary Care Provider [phone] Encounter Details Date Type Department Care Team (Latest Contact Info) Description 11/15/2023 Travel Social History Tobacco Use Types Packs/Day Years Used Date Smoking Tobacco: Former Cigarettes Q uit: 1989 Smokeless Tobacco: Never Alcohol Use Standard Drinks/Week Comments Yes 15 (1 standard drink = 0.6 oz pu re alcohol) [facility] Utilities Answer Date Recorded In the [...] Scheduled View Only Radiation Oncology at [address] [phone] 04/17/2024 9:30 AM EST TH Visit (TeleHealth) Radiation Oncology at [address] [phone] Leroy Berumen MD [address] [place] [address] DR RADIATION ONCOLOGY [place], [place] [address] documented as of this encounter Visit Diagnoses Not on filedocumented in this encounter Care Teams Preventative Maintenance Technician Relationship Specialty Start Date End Date Jeff Pfeiffer MD [address] [place] [address] PCP - General Family Medicine 03/12/23 documented as of this encounter
--- OUTSIDE RECORDS SUMMARY | 2024-03-24 00:38 | XMS_ITS | Encounter Summary ---
Author Organization [facility] Address [facility] [place] [address] Care Team Providers Care Paralegals Name Role Phone Jeff Pfeiffer MD Primary Care Provider [phone] Encounter Details Date Type Department Care Team (Latest Contact Info) Description 01/10/2024 Travel Social History Tobacco Use Types Packs/Day Years Used Date Smoking Tobacco: Former Cigarettes Q uit: 1989 Smokeless Tobacco: Never Alcohol Use Standard Drinks/Week Comments Yes 15 (1 standard drink = 0.6 oz pu re alcohol) [facility] Utilities Answer Date Recorded In the [...] Scheduled View Only Radiation Oncology at [address] [phone] 04/17/2024 9:30 AM EST TH Visit (TeleHealth) Radiation Oncology at [address] [phone] Leroy Berumen MD [address] [place] [address] DR RADIATION ONCOLOGY [place], [place] [address] documented as of this encounter Visit Diagnoses Not on filedocumented in this encounter Care Teams Paralegals Relationship Specialty Start Date End Date Jeff Pfeiffer MD [address] [place] [address] PCP - General Family Medicine 03/12/23 documented as of this encounter
--- OUTSIDE RECORDS SUMMARY | 2024-03-24 00:38 | XMS_ITS | Encounter Summary ---
Author Organization [facility] Address [facility] [place] [address] Care Team Providers Care Screening Unit Registered Nurse Name Role Phone Jeff Pfeiffer MD Primary Care Provider [phone] Encounter Details Date Type Department Care Team (Latest Contact Info) Description 07/18/2023 Travel Social History Tobacco Use Types Packs/Day Years Used Date Smoking Tobacco: Former Cigarettes Q uit: 1989 Smokeless Tobacco: Never Alcohol Use Standard Drinks/Week Comments Yes 15 (1 standard drink = 0.6 oz pu re alcohol) [facility] Utilities Answer Date Recorded In [...] EST Scheduled View Only Radiation Oncology at [address] [phone] 04/17/2024 9:30 AM EST TH Visit (TeleHealth) Radiation Oncology at [address] [phone] Leroy Berumen MD [address] [place] [address] DR RADIATION ONCOLOGY [place], [place] [address] documented as of this encounter Visit Diagnoses Not on filedocumented in this encounter Care Teams Screening Unit Registered Nurse Relationship Specialty Start Date End Date Jeff Pfeiffer MD [address] [place] [address] PCP - General Family Medicine 03/12/23 documented as of this encounter
--- OUTSIDE RECORDS SUMMARY | 2024-03-24 00:38 | XMS_ITS | Encounter Summary ---
Author Organization [facility] Address [facility] [place] [address] Care Team Providers Care Plant Custodian Name Role Phone Jeff Pfeiffer MD Primary Care Provider [phone] Reason for Visit * Consultation (Routine) - Authorized Specialty Diagnoses / Procedures Referred By Neil keller Referred To Contact Radiation Oncology Diagnoses Malignant neoplasm of prostate Procedures Simulation for Radiation Therapy Planning Teetee Han MD [facility] [place] [address] [facility] [place] [address] Referral ID Status Reason Start Date Expiration Date Visits Requested Visits Authorized [id number] Authorized Consult, Test & Treat 01/08/2024 05/03/2024 29 29 Encounter Details Date Type Department Care Team (Latest Contact Info) Description 01/27/2024 10:00 AM EST Ancillary Appointment [place] [address] Leroy Berumen MD [address] [place] [address] DR RADIATION ONCOLOGY [place], [place] [id number] Malignant neoplasm of prostate Social History Tobacco Use Types Packs/Day Years Used Date Smoking Tobacco: Former Cigarettes Q uit: 1989 Smokeless Tobacco: Never Alcohol Use Standard Drinks/Week Comments Yes 15 (1 standard drink = 0.6 oz pu re alcohol) [facility] Utilities Answer Date Recorded In the past 12 months has [employer], gas, oil, or water [employer] threatened to shut off services in your [...] to sleep or slept in a senior care (including now)? No 06/19/2023 Sex and Gender [...] do to help manage the side effects. 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 The body mechanic and nurse will inform you of any [...] from the original note were not included. [facility] Radiation Oncology and [employer] Radiation Oncology [...] be scheduled shortly. LEROY BERUMEN MD, [place] [facility] Radiation Oncology [facility] [place] ([facility]) Comprehensive Cancer Center [place] [employer] Commission on Cancer (ACS [place]) Accredited Cancer Program [place] [employer] (ACR) Accredited Radiation Oncology Program documented in this encounter Plan of Treatment Upcoming Encounters Date Type Department Care Team (Late st Contact Info) Description 03/24/2024 9:30 AM EST Scheduled View Only Radiation Oncology at [address] [phone] 04/17/2024 9:30 AM EST TH Visit (TeleHealth) Radiation Oncology at [address] [phone] Leroy Berumen MD [address] [place] [address] [place] [address] documented as of this encounter Visit Diagnoses Diagnosis Malignant neoplasm of prostate documented in this encounter Care Teams Plant Custodian Relationship Specialty Start Date End Date Jeff Pfeiffer MD [address] [place] [address] PCP - General Family Medicine 03/12/23 documented as of this encounter
--- OUTSIDE RECORDS SUMMARY | 2024-03-24 00:38 | XMS_ITS | Encounter Summary ---
Author Organization [facility] Address [facility] [place] [id number] Care Team Providers Care Gas Torch Brazier Name Role Phone Jeff Pfeiffer MD Primary Care Provider [phone] Encounter Details Date Type Department Care Team (Late st Contact Info) Description 12/30/2023 Telephone Radiation Oncology at [address] [phone] Melba Soler Social History Tobacco Use Types Packs/Day Years Used Date Smoking Tobacco: Former Cigarettes Q uit: 1989 Smokeless Tobacco: Never Alcohol Use Standard Drinks/Week Comments Yes 15 (1 standard drink = 0.6 oz pu re alcohol) [facility] Utilities Answer Date Recorded In the [...] be able to make his appointments in [place] for his MRI an Simulation. Rolando requested to have his appointments rescheduled for after he returns home on the 19 of January. documented in this encounter Plan of Treatment Upcoming Encounters Date Type Department Care Team (Late st Contact Info) Description 03/24/2024 9:30 AM EST Scheduled View Only Radiation Oncology at [address] [phone] 04/17/2024 9:30 AM EST TH Visit (TeleHealth) Radiation Oncology at [address] [phone] Leroy Berumen MD [address] [place] [address] DR RADIATION ONCOLOGY [place], [place] [id number] documented as of this encounter Visit Diagnoses Not on filedocumented in this encounter Care Teams Gas Torch Brazier Relationship Specialty Start Date End Date Jeff Pfeiffer MD [address] [place] [address] PCP - General Family Medicine 03/12/23 documented as of this encounter
--- OUTSIDE RECORDS SUMMARY | 2024-03-24 00:38 | XMS_ITS | Encounter Summary ---
Author Organization [facility] Address [facility] [place] [address] Care Team Providers Care Bleaching Machine Operator Name Role Phone Jeff Pfeiffer MD Primary Care Provider [phone] Encounter Details Date Type Department Care Team (Latest Contact Info) Description 03/05/2024 Travel Social History Tobacco Use Types Packs/Day Years Used Date Smoking Tobacco: Former Cigarettes Q uit: 1989 Smokeless Tobacco: Never Alcohol Use Standard Drinks/Week Comments Yes 15 (1 standard drink = 0.6 oz pu re alcohol) [facility] Utilities Answer Date Recorded In the [...] EST Scheduled View Only Radiation Oncology at [address] [address] 04/17/2024 9:30 AM EST TH Visit (TeleHealth) Radiation Oncology at [address] [phone] Leroy Berumen MD [address] [place] [address] DR RADIATION ONCOLOGY [place], [place] [address] documented as of this encounter Visit Diagnoses Not on filedocumented in this encounter Care Teams Bleaching Machine Operator Relationship Specialty Start Date End Date Jeff Pfeiffer MD [address] [place] [address] PCP - General Family Medicine 03/12/23 documented as of this encounter
--- OUTSIDE RECORDS SUMMARY | 2024-03-24 00:38 | XMS_ITS | Encounter Summary ---
Author Organization [facility] Address [facility] Janene hinson [place] [id number] Care Team Providers Care Tripe Scraper Name Role Phone Jeff Pfeiffer MD Primary Care Provider [phone] Reason for Visit * Reason Onset Date Comments Results 06/26/2023 PSA Encounter Details Date Type Department Care Team (Late st Contact Info) Description 06/26/2023 Telephone Radiation Oncology at [address] [phone] Leesa Randall, RN Results (PSA) Social History Tobacco Use Types Packs/Day Years Used Date Smoking Tobacco: Former Cigarettes Q uit: 1989 Smokeless Tobacco: Never Alcohol Use Standard Drinks/Week Comments Yes 15 (1 standard drink = 0.6 oz pu re alcohol) [facility] Utilities Answer Date Recorded In [...] EST Scheduled View Only Radiation Oncology at [address] [phone] 04/17/2024 9:30 AM EST TH Visit (TeleHealth) Radiation Oncology at [address] [phone] Leroy Berumen MD [address] [place] [address] DR RADIATION ONCOLOGY [place], [place] [address] documented as of this encounter Visit Diagnoses Not on filedocumented in this encounter Care Teams Tripe Scraper Relationship Specialty Start Date End Date Jeff Pfeiffer MD [address] [place] [address] PCP - General Family Medicine 03/12/23 documented as of this encounter
--- OUTSIDE RECORDS SUMMARY | 2024-03-24 00:38 | XMS_ITS | Encounter Summary ---
Author Organization [facility] Address [facility] [place] [address] Care Team Providers Care Student Development Dean Name Role Phone Jeff Pfeiffer MD Primary Care Provider [phone] Reason for Visit * Reason Onset Date Comments Results 10/07/2023 Encounter Details Date Type Department Care Team (Late st Contact Info) Description 10/07/2023 Telephone Radiation Oncology at [address] [phone] Jacklyn Ignacio, RN Results Social History Tobacco Use Types Packs/Day Years Used Date Smoking Tobacco: Former Cigarettes Q uit: 1989 Smokeless Tobacco: Never Alcohol Use Standard Drinks/Week Comments Yes 15 (1 standard drink = 0.6 oz pu re alcohol) [facility] Utilities Answer Date Recorded In the [...] from 09/25/23- 5.3. (previously was 6.0 from 06/19/23) Ok to share this result with him? Jacklyn Joel ----- Message ----- From: Sydnee Johnson Sent: 10/07/2023 8:38 AM EDT To: [facility] Rad Onc Nurse Subject: looking for psa results Rolando called in to ask about his lab result from his PSA on 09/24. I just faxed them to [employer]. Can you please give him a call to let him know the results? [phone] documented in this encounter Plan of Treatment Upcoming Encounters Date Type Department Care Team (Late st Contact Info) Description 03/24/2024 9:30 AM EST Scheduled View Only Radiation Oncology at [address] [phone] 04/17/2024 9:30 AM EST TH Visit (TeleHealth) Radiation Oncology at [address] [phone] Leroy Berumen MD [address] [place] [address] DR RADIATION ONCOLOGY [place], [place] [id number] documented as of this encounter Visit Diagnoses Not on filedocumented in this encounter Care Teams Student Development Dean Relationship Specialty Start Date End Date Jeff Pfeiffer MD [address] [place] [address] PCP - General Family Medicine 03/12/23 documented as of this encounter
--- OUTSIDE RECORDS SUMMARY | 2024-03-24 00:38 | XMS_ITS | Encounter Summary ---
Author Organization [facility] Address [facility] [place] [address] Care Team Providers Care Light Equipment Operator Name Role Phone Jeff Pfeiffer MD Primary Care Provider [phone] Encounter Details Date Type Department Care Team (Late st Contact Info) Description 03/06/2024 9:25 AM EST Office Visit Radiation Oncology at [address] [phone] Sam James Jr., MD [facility] [place] [address] Malignant neoplasm of prostate Social History Tobacco Use Types Packs/Day Years Used Date Smoking Tobacco: Former Cigarettes Q uit: 1989 Smokeless Tobacco: Never Alcohol Use Standard Drinks/Week Comments Yes 15 (1 standard drink = 0.6 oz pu re alcohol) [facility] Utilities Answer Date Recorded In the past 12 months has th e [email or web address], gas, oil, or water [employer] threatened to shut off services in your [...] place to sleep or slept in a longterm (including now)? No 06/19/2023 Sex and Gender Information Value Date Recorded Sex Assigned at Not on file Gender Identity Not on file Sexual Orientation Not on file documented as of this encounter Last Filed Vital Signs Vital Sign Reading Time Taken Comments Blood Pressure 150/70 03/06/2024 9:37 AM EST Pulse 55 03/06/2024 9:37 AM EST Temperature 36.3 ??C (97.3 ??F) 03/06/2024 9:37 AM ES T Respiratory Rate 14 03/06/2024 9:37 AM EST Oxygen Saturation 100% 03/06/2024 9:37 AM EST Inhaled Oxygen Concentration - - Weight 77.1 kg (170 lb) 03/06/2024 9:37 AM EST Height - - Body Mass Index 24.39 01/10/2024 8:35 AM EST documented in this encounter Progress Notes * Sam James Jr., MD - 03/06/2024 9:25 AM EST Images from the original note were not included. f [facility] Medicine Radiation Oncology Radiation Oncology On-treatment [...] 50.4 Gy in 28 fractions Current Dose: 4000 Gy in 16 fractions Interval Clinical Course General No changes since last seen. GI Feels gaseous w.o excess stool Polyuria x 28 times Increased frequency w incomplety emptying. No dysuria. Takes Flomax 0.8mg QHS. Baseline IPSS history is listed below. 06/19/2023 [...] confined to bed or chair Medications Medications 02/28/24 0943 Medication Sig Taking? naproxen sodium (ALEVE) 220 [...] mg by mouth as needed (coldsores). Exam No data found. General: Appears well, in no distress Imaging/Labs Interval setup imaging has been checked and approved. See [facility] for details. 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 Continue as planned. Next / final Lupron due today, 03/06; he prefers to defer and discuss w/Dr. Berumen next week LUTS Rec CONT Flomax QHS Start Aleve BID Followup: Return to clinic next week for on treatment check. No orders of the defined types were placed in this encounter. National [facility] [place] ([facility]) Comprehensive Cancer Center [employer] [place] [employer] Commission on Cancer (ACS [place]) Accredited Cancer Program [employer] [place] [employer] (ACR) Accredited Radiation Oncology Program documented in this encounter Plan of Treatment Upcoming Encounters Date Type Department Care Team (Late st Contact Info) Description 03/24/2024 9:30 AM EST Scheduled View Only Radiation Oncology at [address] [phone] 04/17/2024 9:30 AM EST TH Visit (TeleHealth) Radiation Oncology at [address] [phone] Leroy Berumen MD [address] [place] [address] DR RADIATION ONCOLOGY [place], [place] [id number] documented as of this encounter Visit Diagnoses Diagnosis Malignant neoplasm of prostate documented in this encounter Care Teams Light Equipment Operator Relationship Specialty Start Date End Date Jeff Pfeiffer MD [address] [place] [address] PCP - General Family Medicine 03/12/23 documented as of this encounter
--- OUTSIDE RECORDS SUMMARY | 2024-03-24 00:38 | XMS_ITS | Encounter Summary ---
Author Organization [facility] Address [facility] [place] [address] Care Team Providers Care Sleeve Presser Operator Name Role Phone Jeff Pfeiffer MD Primary Care Provider [phone] Encounter Details Date Type Department Care Team [...] EST Scheduled View Only Radiation Oncology at [address] [phone] 04/17/2024 9:30 AM EST TH Visit (TeleHealth) Radiation Oncology at [address] [address] Leroy Berumen MD [address] [place] [address] DR RADIATION ONCOLOGY [place], [place] [address] documented as of this encounter Visit Diagnoses Not on filedocumented in this encounter Care Teams Sleeve Presser Operator Relationship Specialty Start Date End Date Jeff Pfeiffer MD [address] [place] [address] PCP - General Family Medicine 03/12/23 documented as of this encounter
--- OUTSIDE RECORDS SUMMARY | 2024-03-24 00:38 | XMS_ITS | Encounter Summary ---
Author Organization [facility] Address [facility] [place] [address] Care Team Providers Care Surgeon Partner Name Role Phone Jeff Pfeiffer MD Primary Care Provider [phone] Encounter Details Date Type Department Care Team (Late st Contact Info) Description 01/08/2024 9:00 AM EST Procedure visit Radiation Oncology at [address] [phone] Leroy Berumen MD [address] [place] [address] [place] [address] Malignant neoplasm of prostate Social History Tobacco Use Types Packs/Day Years Used Date Smoking Tobacco: Former Cigarettes Q uit: 1989 Smokeless Tobacco: Never Alcohol Use Standard Drinks/Week Comments Yes 15 (1 standard drink = 0.6 oz pu re alcohol) [facility] Utilities Answer Date Recorded In the past 12 months has th e [employer], gas, oil, or water [email or web address] threatened to shut off services in your [...] concerns. A MRI appointment will be at [address] Radiology on: [ Date: 01/27/24 ] [ Arrive at: 0810 ] Please remain NPO (nothing by mouth) 4 hours prior to your appointment. You may eat and drink after your MRI is complete. A CT Simulation appointment will be at [_] [facility] [X_] [facility] 2K on: [ Date: 01/27/24 ] [ Arrive at: 0930 ] Arrive for your appointment with a comfortably full bladder. How to reach us: [phone] After Hours/Weekends- Please ask for the Radiation Oncologist to be paged documented in this encounter Progress Notes * Genia Patrick RN - 01/08/2024 9:00 AM EST Radiation Oncology Nurse Note [facility] [place], [place] Radiation Oncology Procedure Nursing Note Procedure: Prostate fiducial by Dr Leroy Berumen Fusion Coil Lot Numbers: [ [id number] ] Time of patient arrival to clinic: 824 See flowsheet for all vital signs and medication list updated info. Pre procedure questions: [ Yes ] If Applicable: He confirms taking lorazepam 1mg po at (time): 0800 He comes to clinic accompanied by a driver retraining instructor. [ Yes ] reviewed allergies. Specifically confirmed [...] were reviewed with him. He has the [facility] phone number and verbalized understanding to ask for the hvac operations technician radiation oncologist if he needs to call after clinic hours. [ Yes ] If applicable: He was reminded to not drive home due to Lorazepam. Damaged Freight Inspector: Friend Time of discharge: 1042 vital signs [...] to undergo MRI of the prostate at [facility]. documented in this encounter Plan of Treatment Upcoming Encounters Date Type Department Care Team (Late st Contact Info) Description 03/24/2024 9:30 AM EST Scheduled View Only Radiation Oncology at [address] [address] 04/17/2024 9:30 AM EST TH Visit (TeleHealth) Radiation Oncology at [address] [phone] Leroy Berumen MD [address] [place] [address] [place] [address] documented as of this encounter Visit Diagnoses Diagnosis Malignant neoplasm of prostate documented in this encounter Care Teams Surgeon Partner Relationship Specialty Start Date End Date Jeff Pfeiffer MD [address] [place] [address] PCP - General Family Medicine 03/12/23 documented as of this encounter
--- OUTSIDE RECORDS SUMMARY | 2024-03-24 00:38 | XMS_ITS | Encounter Summary ---
Author Organization [facility] [place] [address] Care Team Providers Care Spray Gun Operator Name Role Phone Jeff Pfeiffer MD Primary Care Provider [phone] Reason for Visit * Reason Comments Injections Lupron * Treatment/Therapy Plan Authorization (Routine) - Authorized Specialty Diagnoses / Procedures Referred By Contdante t Referred To Contact Hematology and Oncology Diagnoses Malignant neoplasm of prostate Leroy Berumen MD [address] [place] [address] [place] [address] Stj Hem Onc Infusion [address] [place] [phone] Referral ID Status Reason Start Date Expiration Date V isits Requested Visits Authorized [id number] Authorized 07/12/2023 07/11/2024 99 101 Encounter Details Date Type Department Care Team (Late st Contact Info) Description 11/15/2023 8:30 AM EDT Infusion Hematology Oncology at [address] [phone] Malignant neoplasm of prostate Social History Tobacco Use Types Packs/Day Years Used Date Smoking Tobacco: Former Cigarettes Q uit: 1989 Smokeless Tobacco: Never Alcohol Use Standard Drinks/Week Comments Yes 15 (1 standard drink = 0.6 oz pu re alcohol) [facility] Utilities Answer Date Recorded In the [...] Scheduled View Only Radiation Oncology at [address] [phone] 04/17/2024 9:30 AM EST TH Visit (TeleHealth) Radiation Oncology at [address] [phone] Leroy Berumen MD [address] [place] [address] DR RADIATION ONCOLOGY [place], [place] [address] documented as of this encounter Visit Diagnoses [...] Gluteal documented in this encounter Care Teams Spray Gun Operator Relationship Specialty Start Date End Date Jeff Pfeiffer MD [address] [place] [address] PCP - General Family Medicine 03/12/23 documented as of this encounter
--- OUTSIDE RECORDS SUMMARY | 2024-03-24 00:38 | XMS_ITS | Encounter Summary ---
Author Organization [facility] Address [facility] [place] [address] Care Team Providers Care Collision Center Manager Name Role Phone Jeff Pfeiffer MD Primary Care Provider [phone] Encounter Details Date Type Department Care Team (Late st Contact Info) Description 02/14/2024 8:25 AM EST Office Visit Radiation Oncology at [address] [phone] Leroy Berumen MD [address] [place] [address] [place] [address] Malignant neoplasm of prostate Social History Tobacco Use Types Packs/Day Years Used Date Smoking Tobacco: Former Cigarettes Q uit: 1989 Smokeless Tobacco: Never Alcohol Use Standard Drinks/Week Comments Yes 15 (1 standard drink = 0.6 oz pu re alcohol) [facility] Utilities Answer Date Recorded In the past 12 months has th e [employer], gas, oil, or water [employer] threatened to shut off services in your [...] from the original note were not included. [facility] Medicine Radiation Oncology Radiation Oncology On-treatment Visit [...] were placed in this encounter. National [facility] [place] (NCI) [facility] [employer] Commission on Cancer (ACS [place]) Accredited Cancer Program [employer] (ACR) Accredited Radiation Oncology Program documented in this encounter Plan of Treatment Upcoming Encounters Date Type Department Care Team (Late st Contact Info) Description 03/24/2024 9:30 AM EST Scheduled View Only Radiation Oncology at [address] [phone] 04/17/2024 9:30 AM EST TH Visit (TeleHealth) Radiation Oncology at [address] [phone] Leroy Berumen MD [address] [place] [address] DR RADIATION ONCOLOGY [place], [place] [id number] documented as of this encounter Visit Diagnoses Diagnosis Malignant neoplasm of prostate documented in this encounter Care Teams Collision Center Manager Relationship Specialty Start Date End Date Jeff Pfeiffer MD [address] [place] [address] PCP - General Family Medicine 03/12/23 documented as of this encounter
--- OUTSIDE RECORDS SUMMARY | 2024-03-24 00:38 | XMS_ITS | Encounter Summary ---
Author Organization [facility] Address [facility] [place] [address] Care Team Providers Care Unix Architect Name Role Phone Jeff Pfeiffer MD Primary Care Provider [phone] Encounter Details Date Type Department Care Team (Late st Contact Info) Description 03/04/2024 Orders Only Radiation Oncology at [address] [phone] Leroy Berumen MD [address] [place] [address] [place] [address] Social History Tobacco Use Types Packs/Day Years Used Date Smoking Tobacco: Former Cigarettes Q uit: 1989 Smokeless Tobacco: Never Alcohol Use Standard Drinks/Week Comments Yes 15 (1 standard drink = 0.6 oz pu re alcohol) [facility] Utilities Answer Date Recorded In the past 12 months has th e electric, gas, oil, or water [employer] threatened to shut off services in your [...] EST Scheduled View Only Radiation Oncology at [address] [phone] 04/17/2024 9:30 AM EST TH Visit (TeleHealth) Radiation Oncology at [address] [phone] Leroy Berumen MD [address] [place] [address] DR RADIATION ONCOLOGY [place], [place] [address] documented as of this encounter Visit Diagnoses Not on filedocumented in this encounter Care Teams Unix Architect Relationship Specialty Start Date End Date Jeff Pfeiffer MD [address] [place] [address] PCP - General Family Medicine 03/12/23 documented as of this encounter
--- OUTSIDE RECORDS SUMMARY | 2024-03-24 00:38 | XMS_ITS | Encounter Summary ---
Author Organization [facility] Address [facility] [place] [address] Care Team Providers Care Casing Man Name Role Phone Jeff Pfeiffer MD Primary Care Provider [phone] Encounter Details Date Type Department Care Team (Late st Contact Info) Description 10/17/2023 Orders Only Radiation Oncology at [address] [phone] Leroy Berumen MD [address] [place] [address] [place] [address] Social History Tobacco Use Types Packs/Day Years Used Date Smoking Tobacco: Former Cigarettes Q uit: 1989 Smokeless Tobacco: Never Alcohol Use Standard Drinks/Week Comments Yes 15 (1 standard drink = 0.6 oz pu re alcohol) [facility] Utilities Answer Date Recorded In the past 12 months has th e electric, gas, oil, or water [employer] threatened to shut off services in your [...] EST Scheduled View Only Radiation Oncology at [address] [phone] 04/17/2024 9:30 AM EST TH Visit (TeleHealth) Radiation Oncology at [address] [phone] Leroy Berumen MD [address] [place] [address] DR RADIATION ONCOLOGY [place], [place] [address] documented as of this encounter Visit Diagnoses Not on filedocumented in this encounter Care Teams Casing Man Relationship Specialty Start Date End Date Jeff Pfeiffer MD [address] [place] [address] PCP - General Family Medicine 03/12/23 documented as of this encounter
--- OUTSIDE RECORDS SUMMARY | 2024-03-24 00:38 | XMS_ITS | Encounter Summary ---
Author Organization [facility] Address [facility] [place] [address] Care Team Providers Care Banking Services Clerk Name Role Phone Jeff Pfeiffer MD Primary Care Provider [phone] Encounter Details Date Type Department Care Team (Latest Contact Info) Description 06/19/2023 Travel Social History Tobacco Use Types Packs/Day Years Used Date Smoking Tobacco: Former Cigarettes Q uit: 1989 Smokeless Tobacco: Never Alcohol Use Standard Drinks/Week Comments Yes 15 (1 standard drink = 0.6 oz pu re alcohol) [facility] Utilities Answer Date Recorded In the [...] Scheduled View Only Radiation Oncology at [address] [phone] 04/17/2024 9:30 AM EST TH Visit (TeleHealth) Radiation Oncology at [address] [phone] Leroy Berumen MD [address] [place] [address] DR RADIATION ONCOLOGY [place], [place] [address] documented as of this encounter Visit Diagnoses Not on filedocumented in this encounter Care Teams Banking Services Clerk Relationship Specialty Start Date End Date Jeff Pfeiffer MD [address] [place] [address] PCP - General Family Medicine 03/12/23 documented as of this encounter
--- OUTSIDE RECORDS SUMMARY | 2024-03-24 00:38 | XMS_ITS | Encounter Summary ---
Author Organization [facility] Address [facility] [place] [address] Care Team Providers Care Ecology Teacher Name Role Phone Jeff Pfeiffer MD Primary Care Provider [phone] Encounter Details Date Type Department Care Team (Late st Contact Info) Description 07/18/2023 8:30 AM EDT Office Visit Radiation Oncology at [address] [phone] Leroy Berumen MD [address] [place] [address] DR RADIATION ONCOLOGY [place], [place] [id number] Malignant neoplasm of prostate Social History Tobacco Use Types Packs/Day Years Used Date Smoking Tobacco: Former Cigarettes Q uit: 1989 Smokeless Tobacco: Never Alcohol Use Standard Drinks/Week Comments Yes 15 (1 standard drink = 0.6 oz pu re alcohol) [facility] Utilities Answer Date Recorded In the past 12 months has e [employer], gas, oil, or water [employer] threatened to shut off services in your [...] place to sleep or slept in a halfway (including now)? No 06/19/2023 Sex and Gender [...] Note Leroy Berumen MD, MS [facility] PATIENT IDENTIFICATION: PATIENT NAME: [...] up this summer and would like to tanana back after returning from [facility] in late September. I affirmed my support [...] EST Scheduled View Only Radiation Oncology at [address] [phone] 04/17/2024 9:30 AM EST TH Visit (TeleHealth) Radiation Oncology at [address] [phone] Leroy Berumen MD [address] [place] [address] DR RADIATION ONCOLOGY [place], [place] [address] documented as of this encounter Visit Diagnoses Diagnosis Malignant neoplasm of prostate documented in this encounter Care Teams Ecology Teacher Relationship Specialty Start Date End Date Jeff Pfeiffer MD [address] [place] [address] PCP - General Family Medicine 03/12/23 documented as of this encounter
--- OUTSIDE RECORDS SUMMARY | 2024-03-24 00:38 | XMS_ITS | Encounter Summary ---
Author Organization [facility] Address [facility] [place] [address] Care Team Providers Care Mounted Police Name Role Phone Jeff Pfeiffer MD Primary Care Provider [phone] Reason for Visit * Treatment/Therapy Plan Authorization (Routine) - Authorized Specialty Diagnoses / Procedures Referred By Neil keller Referred To Contact Hematology and Oncology Diagnoses Malignant neoplasm of prostate Leroy Berumen MD [address] [place] [address] [place] [address] [facility] Hem Onc Infusion [address] [place] [phone] Referral ID Status Reason Start Date Expiration Date V isits Requested Visits Authorized [id number] Authorized 07/12/2023 07/11/2024 99 101 Encounter Details Date Type Department Care Team (Late st Contact Info) Description 03/06/2024 10:00 AM EST Infusion Hematology Oncology at [address] [phone] Social History Tobacco Use Types Packs/Day Years Used Date Smoking Tobacco: Former Cigarettes Q uit: 1989 Smokeless Tobacco: Never Alcohol Use Standard Drinks/Week Comments Yes 15 (1 standard drink = 0.6 oz pu re alcohol) [facility] Utilities Answer Date Recorded In the [...] EST Scheduled View Only Radiation Oncology at [address] [phone] 04/17/2024 9:30 AM EST TH Visit (TeleHealth) Radiation Oncology at [address] [phone] Leroy Berumen MD [address] [place] [address] RADIATION ONCOLOGY [place], [place] [id number] documented as of this encounter Visit Diagnoses Not on filedocumented in this encounter Care Teams Mounted Police Relationship Specialty Start Date End Date Jeff Pfeiffer MD [address] [place] [address] PCP - General Family Medicine 03/12/23 documented as of this encounter
--- OUTSIDE RECORDS SUMMARY | 2024-03-24 00:38 | XMS_ITS | Encounter Summary ---
Author Organization [facility] Address [facility] [place] [address] Care Team Providers Care Plumbing Warehouse Helper Name Role Phone Jeff Pfeiffer MD Primary Care Provider [phone] Encounter Details Date Type Department Care Team (Latest Contact Info) Description 02/24/2024 Travel Social History Tobacco Use Types Packs/Day Years Used Date Smoking Tobacco: Former Cigarettes Q uit: 1989 Smokeless Tobacco: Never Alcohol Use Standard Drinks/Week Comments Yes 15 (1 standard drink = 0.6 oz pu re alcohol) [facility] Utilities Answer Date Recorded [...] Scheduled View Only Radiation Oncology at [address] [phone] 04/17/2024 9:30 AM EST TH Visit (TeleHealth) Radiation Oncology at [address] [phone] Leroy Berumen MD [address] [place] [address] DR RADIATION ONCOLOGY [place], [place] [address] documented as of this encounter Visit Diagnoses Not on filedocumented in this encounter Care Teams Plumbing Warehouse Helper Relationship Specialty Start Date End Date Jeff Pfeiffer MD [address] [place] [address] PCP - General Family Medicine 03/12/23 documented as of this encounter
--- OUTSIDE RECORDS SUMMARY | 2024-03-24 00:38 | XMS_ITS | Encounter Summary ---
Author Organization [facility] Address [facility] [place] [address] Care Team Providers Care Director Paid Media Name Role Phone Jeff Pfeiffer MD Primary Care Provider [phone] Encounter Details Date Type Department Care Team (Latest Contact Info) Description 03/03/2024 Travel Social History Tobacco Use Types Packs/Day Years Used Date Smoking Tobacco: Former Cigarettes Q uit: 1989 Smokeless Tobacco: Never Alcohol Use Standard Drinks/Week Comments Yes 15 (1 standard drink = 0.6 oz pu re alcohol) [facility] Utilities Answer Date Recorded In [...] EST Scheduled View Only Radiation Oncology at [address] [phone] 04/17/2024 9:30 AM EST TH Visit (TeleHealth) Radiation Oncology at [address] [phone] Leroy Berumen MD [address] [place] [address] DR RADIATION ONCOLOGY [place], [place] [address] documented as of this encounter Visit Diagnoses Not on filedocumented in this encounter Care Teams Director Paid Media Relationship Specialty Start Date End Date Jeff Pfeiffer MD [address] [place] [address] PCP - General Family Medicine 03/12/23 documented as of this encounter
--- OUTSIDE RECORDS SUMMARY | 2024-03-24 00:38 | XMS_ITS | Encounter Summary ---
Author Organization [facility] Address [facility] [place] [address] Care Team Providers Care Panel Cutter Name Role Phone Jeff Pfeiffer MD Primary Care Provider [phone] Encounter Details Date Type Department Care Team (Latest Contact Info) Description 12/13/2023 Travel Social History Tobacco Use Types Packs/Day Years Used Date Smoking Tobacco: Former Cigarettes Q uit: 1989 Smokeless Tobacco: Never Alcohol Use Standard Drinks/Week Comments Yes 15 (1 standard drink = 0.6 oz pu re alcohol) [facility] Utilities Answer Date Recorded In the [...] Scheduled View Only Radiation Oncology at [address] [phone] 04/17/2024 9:30 AM EST TH Visit (TeleHealth) Radiation Oncology at [address] [phone] Leroy Berumen MD [address] [place] [address] DR RADIATION ONCOLOGY [place], [place] [address] documented as of this encounter Visit Diagnoses Not on filedocumented in this encounter Care Teams Panel Cutter Relationship Specialty Start Date End Date Jeff Pfeiffer MD [address] [place] [address] PCP - General Family Medicine 03/12/23 documented as of this encounter
--- OUTSIDE RECORDS SUMMARY | 2024-03-24 00:38 | XMS_ITS | Encounter Summary ---
Author Organization [facility] Address [facility] [place] [address] Care Team Providers Care Design Studio Consultant Name Role Phone Jeff Pfeiffer MD Primary Care Provider [phone] Encounter Details Date Type Department Care Team (Latest Contact Info) Description 01/08/2024 Travel Social History Tobacco Use Types Packs/Day Years Used Date Smoking Tobacco: Former Cigarettes Q uit: 1989 Smokeless Tobacco: Never Alcohol Use Standard Drinks/Week Comments Yes 15 (1 standard drink = 0.6 oz pu re alcohol) [facility] Utilities Answer Date Recorded In [...] EST Scheduled View Only Radiation Oncology at [address] [phone] 04/17/2024 9:30 AM EST TH Visit (TeleHealth) Radiation Oncology at [address] [phone] Leroy Berumen MD [address] [place] [address] DR RADIATION ONCOLOGY [place], [place] [address]859 documented as of this encounter Visit Diagnoses Not on filedocumented in this encounter Care Teams Design Studio Consultant Relationship Specialty Start Date End Date Jeff Pfeiffer MD [address] [place] [address] PCP - General Family Medicine 03/12/23 documented as of this encounter
--- OUTSIDE RECORDS SUMMARY | 2024-03-24 00:38 | XMS_ITS | Encounter Summary ---
Author Organization [facility] Address [facility] [place] [address] Care Team Providers Care School Business Manager Name Role Phone Jeff Pfeiffer MD Primary Care Provider [phone] Encounter Details Date Type Department Care Team (Late st Contact Info) Description 07/11/2023 Notes Only Radiation Oncology at [address] [phone] Leroy Berumen MD [address] [place] [address] [place] [address] Social History Tobacco Use Types Packs/Day Years Used Date Smoking Tobacco: Former Cigarettes Q uit: 1989 Smokeless Tobacco: Never Alcohol Use Standard Drinks/Week Comments Yes 15 (1 standard drink = 0.6 oz pu re alcohol) [facility] Utilities Answer Date Recorded In the past 12 months has th e electric, gas, oil, or water [employer] threatened to shut off services in your [...] place to sleep or slept in a prison (including now)? No 06/19/2023 Sex and Gender [...] EST Scheduled View Only Radiation Oncology at [address] [phone] 04/17/2024 9:30 AM EST TH Visit (TeleHealth) Radiation Oncology at [address] [phone] Leroy Berumen MD [address] [place] [address] [place] [address] documented as of this encounter Visit Diagnoses Not on filedocumented in this encounter Care Teams School Business Manager Relationship Specialty Start Date End Date Jeff Pfeiffer MD [address] [place] [address] PCP - General Family Medicine 03/12/23 documented as of this encounter
--- OUTSIDE RECORDS SUMMARY | 2024-03-24 00:38 | XMS_ITS | Encounter Summary ---
Author Organization [facility] Address [facility] [place] [address] Care Team Providers Care Addictions Therapist Name Role Phone Jeff Pfeiffer MD Primary Care Provider [phone] Reason for Visit * Reason Comments Chemotherapy Injections * Treatment/Therapy Plan Authorization (Routine) - Authorized Specialty Diagnoses / Procedures Referred By Neil keller Referred To Contact Hematology and Oncology Diagnoses Malignant neoplasm of prostate Leroy Berumen MD [address] [place] [address] [place] [address] Stj Hem Onc Infusion [address] [place] [phone] Referral ID Status Reason Start Date Expiration Date V isits Requested Visits Authorized [id number] Authorized 07/12/2023 07/11/2024 99 101 Encounter Details Date Type Department Care Team (Late st Contact Info) Description 10/18/2023 11:00 AM EDT Infusion Hematology Oncology at [address] [address] Malignant neoplasm of prostate Social History Tobacco Use Types Packs/Day Years Used Date Smoking Tobacco: Former Cigarettes Q uit: 1989 Smokeless Tobacco: Never Alcohol Use Standard Drinks/Week Comments Yes 15 (1 standard drink = 0.6 oz pu re alcohol) [facility] Utilities Answer Date Recorded In the past 12 months has [employer], gas, oil, or water company threatened [...] Scheduled View Only Radiation Oncology at [address] [address] 04/17/2024 9:30 AM EST TH Visit (TeleHealth) Radiation Oncology at [address] [address] Leroy Berumen MD [address] [place] [address] DR RADIATION ONCOLOGY [place] [id number] documented as of this encounter Visit Diagnoses [...] Gluteal documented in this encounter Care Teams Addictions Therapist Relationship Specialty Start Date End Date Jeff Pfeiffer MD [address] [place] [address] PCP - General Family Medicine 03/12/23 documented as of this encounter
--- OUTSIDE RECORDS SUMMARY | 2024-03-24 00:38 | XMS_ITS | Encounter Summary ---
Author Organization [facility] Address [facility] [place] [address] Care Team Providers Care Claims Configuration Analyst Name Role Phone Jeff Pfeiffer MD Primary Care Provider [phone] Encounter Details Date Type Department Care Team (Late st Contact Info) Description 03/02/2024 Telephone Radiation Oncology at [address] [address] Jacklyn Ignacio, RN Social History Tobacco Use Types Packs/Day Years Used Date Smoking Tobacco: Former Cigarettes Q uit: 1989 Smokeless Tobacco: Never Alcohol Use Standard Drinks/Week Comments Yes 15 (1 standard drink = 0.6 oz pu re alcohol) [facility] Utilities Answer Date Recorded In [...] Telephone Encounter - Jacklyn Ignacio RN - 03/02/2024 10:36 AM EST Patient has received 3000 cGy to Prostate , Proximal SV and pelvis for prostate cancer. He reports taking aleve twice daily now as well as tamsulosin 0.8 mg at HS and finding that it has been a little more helpful for his flow. Continues to void frequently during the day and 3-4 times at night. Instructed him to continue with this and to let us know should he feel like he is having any worsening of LUTS. He is agreeable to this plan. * Telephone Encounter - Jacklyn Ignacio RN - 03/02/2024 10:26 AM EST ----- Message from LEROY BERUMEN sent at 02/28/2024 9:47 AM EST ----- Pls check in dariusz Marshall on Saturday to see if the Aleve has been helpful for his LUTS Thanks Leroy documented in this encounter Plan of Treatment Upcoming Encounters Date Type Department Care Team (Late st Contact Info) Description 03/24/2024 9:30 AM EST Scheduled View Only Radiation Oncology at [address] [phone] 04/17/2024 9:30 AM EST TH Visit (TeleHealth) Radiation Oncology at [address] [place] [address] Leroy Berumen MD [address] [place] [address] DR RADIATION ONCOLOGY [place], [place] 17[address]19 documented as of this encounter Visit Diagnoses Not on filedocumented in this encounter Care Teams Claims Configuration Analyst Relationship Specialty Start Date End Date Jeff Pfeiffer MD [address] [place] [address] PCP - General Family Medicine 03/12/23 documented as of this encounter
--- OUTSIDE RECORDS SUMMARY | 2024-03-24 00:38 | XMS_ITS | Encounter Summary ---
Author Organization [facility] Address [facility] [place] [address] Care Team Providers Care Preventive Maintenance Engineer Name Role Phone Jeff Pfeiffer MD Primary Care Provider [phone] Encounter Details Date Type Department Care Team (Latest Contact Info) Description 02/17/2024 Travel Social History Tobacco Use Types Packs/Day Years Used Date Smoking Tobacco: Former Cigarettes Q uit: 1989 Smokeless Tobacco: Never Alcohol Use Standard Drinks/Week Comments Yes 15 (1 standard drink = 0.6 oz pu re alcohol) [facility] Utilities Answer Date Recorded In [...] Scheduled View Only Radiation Oncology at [address] [address] 04/17/2024 9:30 AM EST TH Visit (TeleHealth) Radiation Oncology at [address] [address] Leroy Berumen MD [address] [place] [address] DR RADIATION ONCOLOGY [place], [place] 624189 documented as of this encounter Visit Diagnoses Not on filedocumented in this encounter Care Teams Preventive Maintenance Engineer Relationship Specialty Start Date End Date Jeff Pfeiffer MD [address] [place] [address] PCP - General Family Medicine 03/12/23 documented as of this encounter
--- OUTSIDE RECORDS SUMMARY | 2024-03-24 00:38 | XMS_ITS | Encounter Summary ---
Author Organization [facility] Address [facility] [place] [address] Care Team Providers Care Special Education Teacher Name Role Phone Jeff Pfeiffer MD Primary Care Provider [phone] Encounter Details Date Type Department Care Team (Latest Contact Info) Description 02/28/2024 Travel Social History Tobacco Use Types Packs/Day Years Used Date Smoking Tobacco: Former Cigarettes Q uit: 1989 Smokeless Tobacco: Never Alcohol Use Standard Drinks/Week Comments Yes 15 (1 standard drink = 0.6 oz pu re alcohol) [facility] Utilities Answer Date Recorded In the [...] Scheduled View Only Radiation Oncology at [address] [address] 04/17/2024 9:30 AM EST TH Visit (TeleHealth) Radiation Oncology at [address] [address] Leroy Berumen MD [address] [place] [address] DR RADIATION ONCOLOGY [place], [place] 845639 documented as of this encounter Visit Diagnoses Not on filedocumented in this encounter Care Teams Special Education Teacher Relationship Specialty Start Date End Date Jeff Pfeiffer MD [address] [place] [address] PCP - General Family Medicine 03/12/23 documented as of this encounter
--- OUTSIDE RECORDS SUMMARY | 2024-03-24 00:38 | XMS_ITS | Encounter Summary ---
Author Organization [facility] Address [facility] [place] [address] Care Team Providers Care Technical Customer Support Specialist Name Role Phone Jeff Pfeiffer MD Primary Care Provider [phone] Encounter Details Date Type Department Care Team (Latest Contact Info) Description 02/26/2024 Travel Social History Tobacco Use Types Packs/Day Years Used Date Smoking Tobacco: Former Cigarettes Q uit: 1989 Smokeless Tobacco: Never Alcohol Use Standard Drinks/Week Comments Yes 15 (1 standard drink = 0.6 oz pu re alcohol) [facility] Utilities Answer Date Recorded In [...] Scheduled View Only Radiation Oncology at [address] [address] 04/17/2024 9:30 AM EST TH Visit (TeleHealth) Radiation Oncology at [address] [address] Leroy Berumen MD [address] [place] [address] DR RADIATION ONCOLOGY [place], [place] 6[address]89 documented as of this encounter Visit Diagnoses Not on filedocumented in this encounter Care Teams Technical Customer Support Specialist Relationship Specialty Start Date End Date Jeff Pfeiffer MD [address] [place] [address] PCP - General Family Medicine 03/12/23 documented as of this encounter
--- OUTSIDE RECORDS SUMMARY | 2024-03-24 00:38 | XMS_ITS | Encounter Summary ---
Author Organization [facility] Address [facility] [place] [address] Care Team Providers Care Electron Beam Welder Setter Name Role Phone Jeff Pfeiffer MD Primary Care Provider [phone] Encounter Details Date Type Department Care Team (Latest Contact Info) Description 01/27/2024 Travel Social History Tobacco Use Types Packs/Day Years Used Date Smoking Tobacco: Former Cigarettes Q uit: 1989 Smokeless Tobacco: Never Alcohol Use Standard Drinks/Week Comments Yes 15 (1 standard drink = 0.6 oz pu re alcohol) [facility] Utilities Answer Date Recorded In [...] Scheduled View Only Radiation Oncology at [address] [address] 04/17/2024 9:30 AM EST TH Visit (TeleHealth) Radiation Oncology at [address] [address] Leroy Berumen MD [address] [place] [address] DR RADIATION ONCOLOGY [place], [place] 286589 documented as of this encounter Visit Diagnoses Not on filedocumented in this encounter Care Teams Electron Beam Welder Setter Relationship Specialty Start Date End Date Jeff Pfeiffer MD [address] [place] [address] PCP - General Family Medicine 03/12/23 documented as of this encounter
--- OUTSIDE RECORDS SUMMARY | 2024-03-24 00:38 | XMS_ITS | Encounter Summary ---
Author Organization [facility] Address [facility] [place] [address] Care Team Providers Care Conditioner Tumbler Operator Name Role Phone Jeff Pfeiffer MD Primary Care Provider [phone] Encounter Details Date Type Department Care Team [...] EST Scheduled View Only Radiation Oncology at [address] [address] 04/17/2024 9:30 AM EST TH Visit (TeleHealth) Radiation Oncology at [address] [address] Leroy Berumen MD [address] [place] [address] DR RADIATION ONCOLOGY [place], [place] [address] documented as of this encounter Visit Diagnoses Not on filedocumented in this encounter Care Teams Conditioner Tumbler Operator Relationship Specialty Start Date End Date Jeff Pfeiffer MD [address] [place] [address] PCP - General Family Medicine 03/12/23 documented as of this encounter
--- OUTSIDE RECORDS SUMMARY | 2024-03-24 00:38 | XMS_ITS | Encounter Summary ---
Author Organization [facility] Address [facility] [place] [address] Care Team Providers Care Housing Court Judge Name Role Phone Jeff Pfeiffer MD Primary Care Provider [phone] Reason for Visit * Reason Comments Injections * Treatment/Therapy Plan Authorization (Routine) - Authorized Specialty Diagnoses / Procedures Referred By Neil keller Referred To Contact Hematology and Oncology Diagnoses Malignant neoplasm of prostate Leroy Berumen MD [address] [place] [address] [place] [address] St Hem Onc Infusion [address] [place] [phone] Referral ID Status Reason Start Date Expiration Date V isits Requested Visits Authorized [id number] Authorized 07/12/2023 07/11/2024 99 101 Encounter Details Date Type Department Care Team (Late st Contact Info) Description 12/13/2023 8:30 AM EDT Infusion Hematology Oncology at [address] [address] Malignant neoplasm of prostate Social History Tobacco Use Types Packs/Day Years Used Date Smoking Tobacco: Former Cigarettes Q uit: 1989 Smokeless Tobacco: Never Alcohol Use Standard Drinks/Week Comments Yes 15 (1 standard drink = 0.6 oz pu re alcohol) [facility] Utilities Answer Date Recorded In the [...] Progress Notes * Ashwin Bergeron, RN - 12/13/2023 8:30 AM EDT Infusion [...] Scheduled View Only Radiation Oncology at [address] [phone] 04/17/2024 9:30 AM EST TH Visit (TeleHealth) Radiation Oncology at [address] [phone] Leroy Berumen MD [address] [place] [address] DR RADIATION ONCOLOGY [place], [place] [id number] documented as of this encounter Visit Diagnoses [...] Gluteal documented in this encounter Care Teams Housing Court Judge Relationship Specialty Start Date End Date Jeff Pfeiffer MD [address] [place] [address] PCP - General Family Medicine 03/12/23 documented as of this encounter
--- OUTSIDE RECORDS SUMMARY | 2024-03-24 00:38 | XMS_ITS | Encounter Summary ---
Author Organization [facility] Address [facility] [place] [address] Care Team Providers Care Mergers And Acquisitions Manager Name Role Phone Jeff Pfeiffer MD Primary Care Provider [phone] Encounter Details Date Type Department Care Team [...] EST Scheduled View Only Radiation Oncology at [address] [address] 04/17/2024 9:30 AM EST TH Visit (TeleHealth) Radiation Oncology at [address] [address] Leroy Berumen MD [address] [place] [address] DR RADIATION ONCOLOGY [place], [place] [address] documented as of this encounter Visit Diagnoses Not on filedocumented in this encounter Care Teams Mergers And Acquisitions Manager Relationship Specialty Start Date End Date Jeff Pfeiffer MD [address] [place] [address] PCP - General Family Medicine 03/12/23 documented as of this encounter
--- OUTSIDE RECORDS SUMMARY | 2024-03-24 00:38 | XMS_ITS | Encounter Summary ---
Author Organization [facility] Address [facility] [place] [address] Care Team Providers Care Registered Nurse Renal Name Role Phone Jeff Pfeiffer MD Primary Care Provider [phone] Encounter Details Date Type Department Care Team (Late st Contact Info) Description 02/21/2024 10:10 AM EST Office Visit Radiation Oncology at [address] [phone] Jacob Cr MD [facility] [place] [address] Malignant neoplasm of prostate Social History Tobacco Use Types Packs/Day Years Used Date Smoking Tobacco: Former Cigarettes Q uit: 1989 Smokeless Tobacco: Never Alcohol Use Standard Drinks/Week Comments Yes 15 (1 standard drink = 0.6 oz pu re alcohol) [facility] Utilities Answer Date Recorded In the past 12 months has th e [employer], gas, oil, or water [employer] threatened to shut off services in your [...] the original note were not included. f [facility] Medicine Radiation Oncology Radiation Oncology On-treatment [...] were placed in this encounter. [employer] (NCI) Comprehensive Cancer Center [employer] Commission on Cancer ([employer] [place]) Accredited Cancer Program [employer] (ACR) Accredited Radiation Oncology Program documented in this encounter Plan of Treatment Upcoming Encounters Date Type Department Care Team (Late st Contact Info) Description 03/24/2024 9:30 AM EST Scheduled View Only Radiation Oncology at [address] [address] 04/17/2024 9:30 AM EST TH Visit (TeleHealth) Radiation Oncology at [address] [address] Leroy Berumen MD [address] [place] [address] DR RADIATION ONCOLOGY [place], [place] 698939 documented as of this encounter Visit Diagnoses Diagnosis Malignant neoplasm of prostate documented in this encounter Care Teams Registered Nurse Renal Relationship Specialty Start Date End Date Jeff Pfeiffer MD [address] [place] [address] PCP - General Family Medicine 03/12/23 documented as of this encounter
--- OUTSIDE RECORDS SUMMARY | 2024-03-24 00:38 | XMS_ITS | Encounter Summary ---
Author Organization [facility] Address [facility] [place] [address] Care Team Providers Care Gaming Dealer Name Role Phone Jeff Pfeiffer MD Primary Care Provider [phone] Encounter Details Date Type Department Care Team (Latest Contact Info) Description 03/02/2024 Travel Social History Tobacco Use Types Packs/Day Years Used Date Smoking Tobacco: Former Cigarettes Q uit: 1989 Smokeless Tobacco: Never Alcohol Use Standard Drinks/Week Comments Yes 15 (1 standard drink = 0.6 oz pu re alcohol) [facility] Utilities Answer Date Recorded In [...] Scheduled View Only Radiation Oncology at [address] [address] 04/17/2024 9:30 AM EST TH Visit (TeleHealth) Radiation Oncology at [address] [address] Leroy Berumen MD [address] [place] [address] DR RADIATION ONCOLOGY [place], [place] 100369 documented as of this encounter Visit Diagnoses Not on filedocumented in this encounter Care Teams Gaming Dealer Relationship Specialty Start Date End Date Jeff Pfeiffer MD [address] [place] [address] PCP - General Family Medicine 03/12/23 documented as of this encounter
--- OUTSIDE RECORDS SUMMARY | 2024-03-24 00:38 | XMS_ITS | Encounter Summary ---
Author Organization [facility] Address [facility] [place] [address] Care Team Providers Care Machine Umbrella Tipper Name Role Phone Jeff Pfeiffer MD Primary Care Provider [phone] Encounter Details Date Type Department Care Team (Late st Contact Info) Description 10/29/2023 Telephone Radiation Oncology at [address] [phone] Jacklyn Ignacio, RN Social History Tobacco Use Types Packs/Day Years Used Date Smoking Tobacco: Former Cigarettes Q uit: 1989 Smokeless Tobacco: Never Alcohol Use Standard Drinks/Week Comments Yes 15 (1 standard drink = 0.6 oz pu re alcohol) [facility] Utilities Answer Date Recorded In the past [...] EST Scheduled View Only Radiation Oncology at [address] [phone] 04/17/2024 9:30 AM EST TH Visit (TeleHealth) Radiation Oncology at [address] [address] Leroy Berumen MD [address] [place] [address] DR RADIATION ONCOLOGY [place], [place] [id number] documented as of this encounter Visit Diagnoses Not on filedocumented in this encounter Care Teams Machine Umbrella Tipper Relationship Specialty Start Date End Date Jeff Pfeiffer MD [address] [place] [address] PCP - General Family Medicine 03/12/23 documented as of this encounter
--- OUTSIDE RECORDS SUMMARY | 2024-03-24 00:38 | XMS_ITS | Encounter Summary ---
Author Organization [facility] Address [facility] [place] [address] Care Team Providers Care Wax Pattern Coater Name Role Phone Jeff Pfeiffer MD Primary Care Provider [phone] Reason for Visit * Reason Comments Chemotherapy Lupron * Treatment/Therapy Plan Authorization (Routine) - Authorized Specialty Diagnoses / Procedures Referred By Neil keller Referred To Contact Hematology and Oncology Diagnoses Malignant neoplasm of prostate Leroy Berumen MD [address] [place] [address] DR [place] [address] St Hem Onc Infusion [address] [place] [phone] Referral ID Status Reason Start Date Expiration Date V isits Requested Visits Authorized [id number] Authorized 07/12/2023 07/11/2024 99 101 Encounter Details Date Type Department Care Team (Late st Contact Info) Description 01/10/2024 8:30 AM EST Infusion Hematology Oncology at [address] [phone] Malignant neoplasm of prostate Social History Tobacco Use Types Packs/Day Years Used Date Smoking Tobacco: Former Cigarettes Q uit: 1989 Smokeless Tobacco: Never Alcohol Use Standard Drinks/Week Comments Yes 15 (1 standard drink = 0.6 oz pu re alcohol) [facility] Utilities Answer Date Recorded In the past 12 months has [employer], gas, oil, or water company threatened [...] in this encounter Progress Notes * Leesa Randall RN - 01/10/2024 8:30 AM EST Infusion [...] Scheduled View Only Radiation Oncology at [address] [phone] 04/17/2024 9:30 AM EST TH Visit (TeleHealth) Radiation Oncology at [address] [phone] Leroy Berumen MD [address] [place] [address] DR RADIATION ONCOLOGY [place], [place] [address] documented as of this encounter Visit Diagnoses [...] Gluteal documented in this encounter Care Teams Wax Pattern Coater Relationship Specialty Start Date End Date Jeff Pfeiffer MD [address] [place] [address] PCP - General Family Medicine 03/12/23 documented as of this encounter
--- OUTSIDE RECORDS SUMMARY | 2024-03-24 00:38 | XMS_ITS | Encounter Summary ---
Author Organization [facility] Address [facility] [place] [address] Care Team Providers Care Disulfurizer Tender Name Role Phone Jeff Pfeiffer MD Primary Care Provider [phone] Encounter Details Date Type Department Care Team (Latest Contact Info) Description 10/18/2023 Travel Social History Tobacco Use Types Packs/Day Years Used Date Smoking Tobacco: Former Cigarettes Q uit: 1989 Smokeless Tobacco: Never Alcohol Use Standard Drinks/Week Comments Yes 15 (1 standard drink = 0.6 oz pu re alcohol) [facility] Utilities Answer Date Recorded In [...] Scheduled View Only Radiation Oncology at [address] [address] 04/17/2024 9:30 AM EST TH Visit (TeleHealth) Radiation Oncology at [address] [address] Leroy Berumen MD [address] [place] [address] DR RADIATION ONCOLOGY [place], [place] [address] documented as of this encounter Visit Diagnoses Not on filedocumented in this encounter Care Teams Disulfurizer Tender Relationship Specialty Start Date End Date Jeff Pfeiffer MD [address] [place] [address] PCP - General Family Medicine 03/12/23 documented as of this encounter
--- OUTSIDE RECORDS SUMMARY | 2024-03-24 00:38 | XMS_ITS | Encounter Summary ---
Author Organization [facility] Address [facility] [place] [address] Care Team Providers Care Metal Plater Name Role Phone Jeff Pfeiffer MD Primary Care Provider [phone] Reason for Visit * Reason Comments Chemotherapy * Treatment/Therapy Plan Authorization (Routine) - Authorized Specialty Diagnoses / Procedures Referred By Neil keller Referred To Contact Hematology and Oncology Diagnoses Malignant neoplasm of prostate Leroy Berumen MD [address] [place] [address] [place] [address] St Hem Onc Infusion [address] [place] [phone] Referral ID Status Reason Start Date Expiration Date V isits Requested Visits Authorized [id number] Authorized 07/12/2023 07/11/2024 99 101 Encounter Details Date Type Department Care Team (Late st Contact Info) Description 02/07/2024 2:00 PM EST Infusion Hematology Oncology at [address] [phone] Malignant neoplasm of prostate Social History Tobacco Use Types Packs/Day Years Used Date Smoking Tobacco: Former Cigarettes Q uit: 1989 Smokeless Tobacco: Never Alcohol Use Standard Drinks/Week Comments Yes 15 (1 standard drink = 0.6 oz pu re alcohol) [facility] Utilities Answer Date Recorded In [...] EST Scheduled View Only Radiation Oncology at [address] [phone] 04/17/2024 9:30 AM EST TH Visit (TeleHealth) Radiation Oncology at [address] [phone] Leroy Berumen MD [address] [place] [address] DR RADIATION ONCOLOGY [place], [place] [address] documented as of this encounter Visit Diagnoses [...] Gluteal documented in this encounter Care Teams Metal Plater Relationship Specialty Start Date End Date Jeff Pfeiffer MD [address] [place] [address] PCP - General Family Medicine 03/12/23 documented as of this encounter
--- OUTSIDE RECORDS SUMMARY | 2024-03-24 00:38 | XMS_ITS | Encounter Summary ---
Author Organization [facility] Address [facility] [place] [address] Care Team Providers Care Rfp Writer Name Role Phone Jeff Pfeiffer MD Primary Care Provider [phone] Encounter Details Date Type Department Care Team (Late st Contact Info) Description 10/28/2023 Telephone Radiation Oncology at [address] [phone] Jacklyn Ignacio, RN Social History Tobacco Use Types Packs/Day Years Used Date Smoking Tobacco: Former Cigarettes Q uit: 1989 Smokeless Tobacco: Never Alcohol Use Standard Drinks/Week Comments Yes 15 (1 standard drink = 0.6 oz pu re alcohol) [facility] Utilities Answer Date Recorded In [...] infusion on 10/17 Best call back number [phone] documented in this encounter Plan of Treatment Upcoming Encounters Date Type Department Care Team (Late st Contact Info) Description 03/24/2024 9:30 AM EST Scheduled View Only Radiation Oncology at [address] [phone] 04/17/2024 9:30 AM EST TH Visit (TeleHealth) Radiation Oncology at [address] [phone] Leroy Berumen MD [address] [place] [address] DR RADIATION ONCOLOGY [place], [place] [id number] documented as of this encounter Visit Diagnoses Not on filedocumented in this encounter Care Teams Rfp Writer Relationship Specialty Start Date End Date Jeff Pfeiffer MD [address] [place] [address] PCP - General Family Medicine 03/12/23 documented as of this encounter
--- OUTSIDE RECORDS SUMMARY | 2024-03-24 00:38 | XMS_ITS | Encounter Summary ---
Author Organization [facility] Address [facility] [place] [address] Care Team Providers Care Fitness Instructor Name Role Phone Jeff Pfeiffer MD Primary Care Provider [phone] Reason for Referral * Diagnostic Test (Routine) - Closed Specialty Diagnoses / Procedures Referred By Neil t Referred To Contact Radiology Diagnoses Malignant neoplasm of prostate Procedures MRI Pelvis wo (Prostate) MRI Pelvis wwo (Prostate) Teetee Han MD [facility] [place] [address] [facility] [place] [address] Referral ID Status Reason Start Date Expiration Date V isits Requested Visits Authorized [id number] Closed Specialty Service Requested 10/18/2023 04/17/2025 1 1 * Consultation (Routine) - Authorized Specialty Diagnoses / Procedures Referred By Neil t Referred To Contact Radiation Oncology Diagnoses Malignant neoplasm of prostate Procedures Simulation for Radiation Therapy Planning Teetee Han MD [facility] [address] [facility] [place] [address] Referral ID Status Reason Start Date Expiration Date Visits Requested Visits Authorized [id number] Authorized Consult, Test & Treat 01/08/2024 05/03/2024 29 29 Encounter Details Date Type Department Care Team (Late st Contact Info) Description 10/18/2023 10:30 AM EDT Office Visit Radiation Oncology at [address] [place] [phone] Leroy Berumen MD [address] [place] [address] [place] [address] Malignant neoplasm of prostate Social History Tobacco Use Types Packs/Day Years Used Date Smoking Tobacco: Former Cigarettes Q uit: 1989 Smokeless Tobacco: Never Alcohol Use Standard Drinks/Week Comments Yes 15 (1 standard drink = 0.6 oz pu re alcohol) [facility] Utilities Answer Date Recorded In the [...] are considered high risk. 2. Your highest Tappan Group score was 2 (this is how aggressive your prostate cancer looks under the microscope). Emely scores for cancer range from 1-5, and 1 is considered lowest risk, while 5 is highest risk. 2. Radiation Treatment Options: There are a few ways radiation can be given here in [facility]. Either: 5.5 weeks of daily radiation (M-F) with external beam radiation alone (moderately hypofractionated RT) 5 treatments total (given every other day Mon/Wed/Fri) of external beam radiation alone (SBRT) It [...] of completion radiation. 6. SIDE EFFECTS - Parts Clerk Plant Maintenance: These can include be permanent damage of the radiated tissues, including the rectum/bowel, bladder, prostate and surrounding tissues. Potential serious injury is rare, but can include poor wound healing, bleeding, or destruction of healthy tissue that may require surgery to repair and may result in a colostomy (bag for defecation) or urostomy (bag for urination). There may be a slow, long-term decrease in your sexual function as well, [...] do not hesitate to call me at [phone] with any other questions or concerns you have. IfI am not here, one of our radiation oncology nurses can assist you or help you get in touch with me. A Radiation Oncology doctor is also electronic video games servicer after our normal hours and on weekends for urgent questions or concerns related to radiation treatments that can not wait until normal business hours. To reach the on-call doctor after-hours, just call and have the receiving distribution station operator page the Radiation Oncologist electronic video games servicer. And, as always, if you experience any [...] were not included. Radiation Oncology Followup Note [facility] PATIENT NAME: Rolando Brown DATE [...] visit as above Leroy Berumen MD, [place] Switchboard Manager Radiation Oncology documented in this encounter Plan of Treatment Upcoming Encounters Date Type Department Care Team (Late st Contact Info) Description 03/24/2024 9:30 AM EST Scheduled View Only Radiation Oncology at [address] [place] [address] [phone] 04/17/2024 9:30 AM EST TH Visit (TeleHealth) Radiation Oncology at [address] [phone] Leroy Berumen MD [address] [place] [address] [place] [address] Scheduled Orders Name Type Priority Associated Diagnoses Orde r Schedule Simulation for Radiation Therapy Planning Radiation Oncology Routine Malignant neoplasm of prostate Expected: 10/18/2023, Expires: 04/18/2024 documented as of this encounter Results * MRI Pelvis wo (Prostate) (01/27/2024 9:09 AM EST) WORKSTATION ID [id number] RAD Anatomical Region Laterality Modality Pelvis Magnetic Resonan ce Impressions 01/27/2024 1:25 PM EST Limited MRI for radiation treatment planning. Thank you for letting us participate in the care of this patient. ??If you are a health care provider and have any questions regarding this report, please contact the number below. ??For patients who have questions please contact the health care attendant that requested your imaging first. ? Electronically signed by: Jann Pacheco MD, [facility] ([phone]), at 01/27/2024 1:25 PM Narrative 01/27/2024 1:25 [...] patients who have questions please contactthe health care attendant that requested your imaging first. Electronically signed by: Jann Pacheco MD, [facility]([phone]), at 01/27/2024 1:25 PM Leroy Berumen MD IMG MRI ORDERABLES documented in this encounter Visit Diagnoses Diagnosis Malignant neoplasm of prostate Malignant neoplasm of prostate documented in this encounter Care Teams Fitness Instructor Relationship Specialty Start Date End Date Jeff Pfeiffer MD [address] [place] [address] PCP - General Family Medicine 03/12/23 documented as of this encounter
--- OUTSIDE RECORDS SUMMARY | 2024-03-24 00:38 | XMS_ITS | Encounter Summary ---
Author Organization [facility] Address [facility] [place] [address] Care Team Providers Care Applique Cutter Name Role Phone Jeff Pfeiffer MD Primary Care Provider [phone] Encounter Details Date Type Department Care Team (Late st Contact Info) Description 02/28/2024 9:25 AM EST Office Visit Radiation Oncology at [address] [phone] Leroy Berumen MD [address] [place] [address] [place] [address] Malignant neoplasm of prostate Social History Tobacco Use Types Packs/Day Years Used Date Smoking Tobacco: Former Cigarettes Q uit: 1989 Smokeless Tobacco: Never Alcohol Use Standard Drinks/Week Comments Yes 15 (1 standard drink = 0.6 oz pu re alcohol) [facility] Utilities Answer Date Recorded In the past 12 months has th e [employer], gas, oil, or water [employer] threatened to shut off services in your [...] Sign Reading Time Taken Comments Blood Pressure 136/71 02/28/2024 9:34 AM EST Pulse 60 02/28/2024 9:34 AM EST Temperature 36.3 ??C (97.3 ??F) 02/28/2024 9:34 AM ES T Respiratory Rate 16 02/28/2024 9:34 AM EST Oxygen Saturation 100% 02/28/2024 9:34 AM EST Inhaled Oxygen Concentration - - Weight - - Height - - Body Mass Index - - documented in this encounter Progress Notes * Leroy Berumen MD - 02/28/2024 9:25 AM EST Images from the original note were not included. f [facility] Medicine Radiation Oncology Radiation Oncology On-treatment [...] 50.4 Gy in 28 fractions Current Dose: 27.5 Gy in 11 fractions Interval Clinical Course General No changes since last seen. GI No diarrhea. Nocturia 3-4 x/nt at baseline but at least 4x now. Increased frequency w incomplety emptying. No dysuria. [...] to bed or chair Medications Medications 02/28/24 0934 Medication Sig Taking? atorvastatin (Lipitor) 40 mg [...] 24 hrs: Temp Pulse Resp BP SpO2 02/28/24 0934 36.3 ??C (97.3 ??F) 60 16 136/71 100 % General: Appears well, in no distress Imaging/Labs Interval setup imaging has been checked and approved. See [employer] for details. 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 Continue as planned. Next / final Lupron due 03/06 LUTS Rec CONT Flomax QHS Start Aleve BID Followup: Return to clinic next week for on treatment check. No orders of the defined types were placed in this encounter. [facility] [place] ([facility]) [facility] [employer] Commission on Cancer (ACS [employer]) Accredited Cancer Program [employer] (A[employer]) Accredited Radiation Oncology Program documented in this encounter Plan of Treatment Upcoming Encounters Date Type Department Care Team (Late st Contact Info) Description 03/24/2024 9:30 AM EST Scheduled View Only Radiation Oncology at [address] [phone] 04/17/2024 9:30 AM EST TH Visit (TeleHealth) Radiation Oncology at [address] [phone] Leroy Berumen MD [address] [place] [address] DR RADIATION ONCOLOGY [place], [place] [id number] documented as of this encounter Visit Diagnoses Diagnosis Malignant neoplasm of prostate documented in this encounter Care Teams Applique Cutter Relationship Specialty Start Date End Date Jeff Pfeiffer MD [address] [place] [address] PCP - General Family Medicine 03/12/23 documented as of this encounter
--- OUTSIDE RECORDS SUMMARY | 2024-03-24 00:39 | XMS_ITS | Encounter Summary ---
Author Organization [facility] [place] [address] Care Team Providers Care Weld Engineer Name Role Phone Jeff Pfeiffer MD Primary Care Provider [phone] Encounter Details Date Type Department Care Team (Late Contact Info) Description 05/30/2023 Telephone Radiation Oncology at [address] [phone] Melba Soler Social History Tobacco [...] Upcoming Encounters Date Type Department Care Team ([facility] Contact Info) Description 03/24/2024 9:30 AM EST Scheduled View Only Radiation Oncology at [address] [phone] 04/17/2024 9:30 AM EST TH Visit (TeleHealth) Radiation Oncology at [address] [phone] Leroy Berumen MD [address] [place] [address] DR RADIATION ONCOLOGY [place], [place] [address] documented as of this encounter Visit Diagnoses Not on filedocumented in this encounter Care Teams Weld Engineer Relationship Specialty Start Date End Date Jeff Pfeiffer MD [address] [place] [address] PCP - General Family Medicine 03/12/23 documented as of this encounter
--- OUTSIDE RECORDS SUMMARY | 2024-03-24 00:39 | XMS_ITS | Clinical Summary ---
Author Organization [facility] Address [address] [place] [address] Care Team Providers Care Seasonal Customer Service Associate Name Role Phone Jeff Pfeiffer MD Primary [...] Insurance [employer] MEDICARE [employer] [place] Care Teams Seasonal Customer Service Associate Relationship Specialty Start Date End Date Jeff Pfeiffer MD [address] [place] [address] PCP - General 08/27/22
--- OUTSIDE RECORDS SUMMARY | 2024-03-24 00:39 | XMS_ITS | Encounter Summary ---
Author Organization [facility] Address [address] [place] [address] Care Team Providers Care Diabetes Physician Name Role Phone Jeff Pfeiffer MD Primary Care Provide r Encounter Details Date Type Department Care Team (Late st Contact Info) Description 09/07/2022 Lab Requisition [facility] Pathology & Laboratory Medicine - [facility] [address] [place] [address] Outr Resulting Lab, Provider Social History Tobacco [...] Lyme Ab Negative Negative 09/10/2022 9:11 EDT [facility] Blood VENOUS BLOOD / Unknown 09/06/2022 15:10 EDT 09/07/2022 19:27 EDT us Provider Outr Resulting Lab IMMUNOLOGY AND SEROL OGY ORDERABLES Final Result [facility] [address] [place] [address] documented in this encounter Visit Diagnoses Not on filedocumented in this encounter Care Teams Diabetes Physician Relationship Specialty Start Date End Date Jeff Pfeiffer MD [address] [address] PCP - General 08/27/22 documented as of this encounter
--- OUTSIDE RECORDS SUMMARY | 2024-03-24 00:39 | XMS_ITS | Encounter Summary ---
Author Organization [facility] Address [address] [place] [address] Care Team Providers Care Machine Captain Name Role Phone Jeff Pfeiffer MD Primary Care Provide r Reason for Visit * Reason Comments Procedure Left neck * Consult (Routine) - Authorized Specialty Diagnoses / Procedures [facility] Referred To Contact Dermatology Diagnoses Basal cell carcinoma (BCC) of neck Procedures AK ADJ TISS XFER HEAD,FAC,HAND <10 SQCM AK ADJ TISS XFER HEAD,FAC,HAND 10.1-30 SQCM AK ADJ TISS XFER ANY AREA,30.1-60 SQCM AK SPLIT GRFT,HEAD,FAC,HAND,FEET <100 SQCM AK FULL THICK GRFT HEAD,FAC,HAND <20SQC AK FULL THICK GRFT HEAD,FAC,JUSTIN ADD 20SQ AK DELAY/SECTN FLAP FACE,GENIT,HAND,FT AK COMPOSITE SKIN GRAFT AK MOHS, 1 STAGE, HEAD/NECK/HAND/FEET/GENTI AL [facility] Dermatology [address] [place] [address] Phone: tel: fax: John Aden MD Phone: tel: fax: Referral ID Status Reason Start Date Expiration Date V isits Requested Visits Authorized [id number] Authorized 1 1 Encounter Details Date Type Department Care Team (Late st Contact Info) Description 08/27/2022 13:00 EDT Office Visit [facility] Dermatology [address] [place] [address] [address] [place], [place] [phone] John Aden MD [address] [place] [address] [place] [phone] Basal cell carcinoma (BCC) of left side [...] site rapidly swells. Please call our office [phone] or if you have any questions or [...] 2022 Surgeon and Pathologist: John Aden MD Railroad Wheels And Axles Inspector: Marlon Elliott MD Case #: [id number] Mohs [...] handed personally by the doctor to the microelectronics technician for frozen sectioning. The tissue was [...] INFORMATION: Rolando Brown SURGEON: John Aden MD CIGARETTE CATCHER: Marlon Elliott MD and Bernadine Dorantes MD [...] 08/29/2022 18:2 2 EDT us Scan 2 Rivet Bucker PROCEDURE/MINOR SURGICAL OR DERABLES Final Result documented [...] daily. added in this encounter Care Teams Machine Captain Relationship Specialty Start Date End Date Jeff Pfeiffer MD [address] [place] [address] PCP - General 08/27/22 documented as of this encounter
--- OUTSIDE RECORDS SUMMARY | 2024-03-24 00:39 | XMS_ITS | Encounter Summary ---
Author Organization [facility] Address [address] [place] [address] Care Team Providers Care Senior It Architect Name Role Phone Jeff Pfeiffer MD Primary Care Provide r Encounter Details Date Type Department Care Team (Late st Contact Info) Description 05/19/2020 Lab Requisition [facility] Pathology & Laboratory Medicine - [facility] [address] [place] [address] Outr Resulting Lab, Provider Social History Tobacco [...] 0.0 - 4.5 ng/mL 05/19/2020 22:33 EDT [facility] Blood VENOUS BLOOD / Unknown 05/19/2020 9:04 EDT 05/19/2020 21:11 EDT Narrative [facility] - 05/19/2020 22:33 EDT NOTE: Serum PSA concentration should not be interpreted as absolute evidence for the presence or absence of malignant disease. Assayed on Siemens [employer] XPT using chemiluminescent technology.??Values obtained by using different assay methods cannot be used interchangeably. us Provider Outr Resulting Lab CHEMISTRY & BLOOD GA S ORDERABLES Final Result [facility] [address] [place] [address] documented in this encounter Visit Diagnoses Not on filedocumented in this encounter Care Teams Senior It Architect Relationship Specialty Start Date End Date Jeff Pfeiffer MD [address] [place] [address] PCP - General 08/27/22 documented as of this encounter
--- OUTSIDE RECORDS SUMMARY | 2024-03-24 00:39 | XMS_ITS | Continuity of Care Document ---
Author Organization [facility] Address [address] [place] [address] Care Team Providers Care Marine Insulator Name Role Phone ESCALERA, VIVI Urologist LISA AMOS Radiation Oncologist [phone] Assessment No assessment recorded. Plan of Treatment Reminders Order Date Submit Date Provider Last Modified By Organization Details Last Modified Time Details Appointments Nurse Visit 10 2024 07:40A M Ulmer Nursing Staff Not available Not available Not available Medicare Wellness 40 (Subs) 2024 09:30A M JORGE ALVARADO Not available Not available Not available Lab CBC w/ auto diff - to be drawn at [facility] 2024 025 [facility] Laboratory (Registration ), [address] [place] [address] [place], [address], 02/26/2024 12:35:22 Referral None recorded. Procedures None recorded. Surgeries None recorded. Imaging US, neck, soft tissue - R submandib ular mass, non-tende r. active prostate ca. pls eval and treat. 2024 025 [facility] (Radiology), [address] [place] [address] [place], [address], 02/26/2024 12:50:36 XR, chest, 2 view - chronic cough x 8-9 mos, hx of prostate cancer 2024 025 [facility] Xray, [address], [place], [address], 02/26/2024 12:40:27 Medication Orders None recorded. Patient TargetsNo targets recorded. Patient Instructions Encounter Date Encounter Id Patient Instructions Last Modified By Organization Details Last Modified Time 02/26/2024 [id number] It was nice to s froilan tyrone Rolando! Here is a summary of the [...] neck. These will also be scheduled in [place]. Call [facility] at to schedule. - Follow-up: - Please follow up with our office after your tests. - Do not assume that no news is good news; we will reach out with your results. If you have any questions or need further assistance, please do not hesitate to contact our office. Take care! [email or web address] Not available 02/26/2024 12:29:03 Reason for Referral None Reported. Results Created Date Observation Date Name Description Value Unit Range Abnormal Flag Note LastModifiedBy Organization Detail LastModifiedTime 02/26/1902/27/2024 x-ray imagi ng repor t [place] t Name: Emily Brown Unit #: [id number] Loc: DI Orderi ng Provid er: Westley Minor Accoun t #: [id number] Status : REG CLI Primar y Care Provid er: Westley Minor Date of Exam: 11/12 Sex: M Admiss ion Date: : 1955 Age: 68 Exam(s ) XR CHEST 2V PA LATERA L EXAM: XR CHEST 2V PA LATERA L CLINIC AL HISTOR Y: R05.3 Chroni c cough x 8-9 mos, hx prosta te CA TECHNI QUE: 2D digita l imagin g was perfor med of the chest. Two images were obtain ed. PA and latera l views were obtain ed. COMPAR ESE: CR,XR XR RIBS LT W PA LAT CHEST from 2020 FINDIN GS: MEDIAS TINUM: Normal . HEART: Normal . PULMON APPLE VASCUL ATURE: Normal . LUNGS: Clear. PLEURA L SPACE: No pleura l effusi on or pneumo thorax . BONE:W ithin normal limits for the patien t's age. OTHER FINDIN GS:Nor mal. IMPRES ARNEL: No acute pulmon apple findin gs. DATA REPOSI TORY: RADIAT ION DOSE DELIVE RED: Ordere d By: Westley Minor CC: ------ ------ ------ ------ ------ ------ ------ ------ ------ ------ ------ ------ - Dictat ed By: Chris Dias M.D. 1106 1106 Transc ribed By: Chris Dias 1106 This is privil eged, confid ential inform ation intend ed only for the provid er named. Any use or distri bution by any person other than this provid er is strict ly prohib ited. If you receiv e this report in error, please notify us immedi ately at [phone] and return the origin al report to us at the addres s above. Thank- you. [email or web address] [facility] [address] [place], [address] 03/17/2024 07:05:19 02/26/19 25 02/27/2024 ultra sound imagi ng repor t Patien t Name: Emily Brown Unit #: [id number] Loc: DI Orderi ng Provid er: Westley Minor Accoun t #: [id number] Status : REG CLI Primar y Care Provid er: Westley Minor Date of Exam: 11/12 Sex: M Admiss ion Date: : 1955 Age: 68 Exam(s ) US SOFT TISSUE HEAD OR NECK EXAM: US SOFT TISSUE HEAD OR NECK CLINIC AL HISTOR Y: R221. Locali zed swelli ng,mas s/lump neck; RT subman dibula r mass, non tender . TECHNI QUE: Ultras ound was perfor med using standa rd protoc ol. COMPAR ESE: No exams were availa ble for compar ese FINDIN GS: Sonogr aphic assess ment utiliz ing graysc jose and color Dopple r imagin g was perfor med and target ed to the area of clinic al concer n. Within the right subman dibula r gland there are 2 hypoec hoic nodule s presen t. The larger measur es 1.1 x 1.0 x 1.3 cm. The smalle r measur es 1.0 x 0.9 x 1.0 cm. There is mild gallery intern al blood flow noted. These corres pond to the palpab le abnorm alitie s. They are nonspe cific. A CT scan of the neck with contra st is recomm ended for furthe r evalua tion. IMPRES ARNEL: Unexpe cted findin DATA REPOSI TORY: Ordere d By: Westley Minor CC: ------ ------ ------ ------ ------ ------ ------ ------ ------ ------ ------ ------ - Dictat ed By: Chris Dias M.D. 1131 1131 Transc ribed By: Chris Dias 1131 This is privil eged, confid ential inform ation intend ed only for the provid er named. Any use or distri bution by any person other than this provid er is strict ly prohib ited. If you receiv e this report in error, please notify us immedi ately at and return the origin al report to us at the addres s above. Thank- you. magan [facility] [address], [place], [address] 03/17/2024 07:05:20 03/05/19 25 03/05/2024 CT imagi ng repor t Vladislav keller Name: Emily Brown Unit #: [id number] Loc: DI Orderi ng Provid er: Jose Carlos crisostomoJuliussouth ricki Accoun t #: [id number] Status : REG CLI Primar y Care Provid er: Westley Minor Date of Exam: Sex: M : 1955 Age: 68 Exam(s ) a CT:CT neck w Exam(s ) CT NECK W EXAM: CT NECK W CLINIC AL HISTOR Y: Locali zed swelli ng, mass, or lump, neck, R22.1; abnl findin gs on US 5. TECHNI QUE: Imagin g Protoc ol: Axial comput ed tomogr aphy images with bhakta l and sagitt al reform atted images were create d and review ed CONTRA ST MATERI AL: Intrav enous: Omnipa que [address] volume :[address] COMPAR ESE: US US SOFT TISSUE HEAD OR NECK from 2024 FINDIN GS: Paroti ds: Normal . Subman dibula r glands : 2 adjace nt nodule s are demons trated in the right subman dibula r gland, measur ing 1.3 and 1 cm. The left subman dibula r gland is normal . Normal . Thyroi d gland: Normal . Lymph nodes: No abnorm ally enlarg ed lymph nodes. . Caroti ds arteri es: Mild calcif icatio n at the common caroti d bulbs. No signif icant stenos is or dissec tion. Verteb ral arteri es: No signif icant stenos is or dissec tion. Soft tissue s: The floor the mouth is unrema rkable . The tonsil s and adenoi ds are unrema rkable . The epiglo ttis and vocal cords are within normal limits . Lungs: Images throug h both lung apices are unrema rkable . Bones: Degene rative change s of the cervic al spine. Visual ized portio ns of the brain and orbits : Unrema rkable . Sinuse s and mastoi ds: Clear. IMPRES ARNEL: Two small small adjace nt masses in the right subman dibula r gland. No eviden ce of adenop athy. Findin gs may repres ent benign mixed tumor, adenoi d cystic carcin zachariah or adenop athy. RADIAT ION DOSE DELIVE RED: 281.41 mGy.cm Total DLP DATA REPOSI TORY: All CT scans at this facili ty are submit cris to the [facility] al Radiol ogy Data Regist ry (NRDR) Dose Index Regist ry (DIR) with the [place] hilario villasenor of Radiol ogy (ACR). RADIAT ION OPTIMI ZATION : All CT scans at this facili ty use at least one of these dose optimi zation techni ques: automa cris exposu re contro l; mA and/or kV adjust ment per patien t size (inclu iveth target ed exams where dose is matche d to clinic al indica tion); or iterat adalgisa recons tructi on. 0116-0 006: Total DLP = 0.00 mGy-cm Ordere d By: Westley Minor CC: ------ ------ ------ ------ ------ ------ ------ ------ ------ ------ ------ ------ ---- Dictat ed By: Manas Albarado 923 Transc ribed By: Jerome Ellis 923 This is privil eged, confid ential inform ation intend ed only for the provid er named. Any use or distri bution by any person other than this provid er is strict ly prohib ited. If you receiv e this report in error, please notify us immedi fiordalizaly at and return the origin al report to us at the addres s above. Thank- you. [email or web address] [address], [place], [address] 03/23/2024 15:24:00 Result Notes None recorded. Problems Name Problem SNOMED Code Status Onset Date Resolution Date Notes Provider Name and Address Organization Details Recorded Time Herpesvi bebeto infectio n 54520312 Completed 202101/13/2024 Problem Code: B00.9; Problem Code Type: ICD-10; MD Amy MARTINEZ Dr, [facility] [address] , [facility] 4 16:59:12 Oral herpes simplex infectio n 299196775 Active [address], [address] 4 16:59:07 History of polyp of colon 071691695 Completed 201504/25/2023 Problem Code: Z86.010; Problem Code Type: ICD-10; MD Amy MARTINEZ Dr, [place] [address] , [facility] 4 10:41:52 History of malignan t melanoma of the skin 07368069903 8 Active 201704/04/19 18 - Comments only - Jorge Alvarado M.D. 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 Problem Code: Z85.820; Problem Code Type: ICD-10; MD Amy MARTINEZ Dr, [facility] [address] , [facility] 4 10:41:25 Adult health examinat ion Active 201705/29/19 23 - Comments only - Jorge Alvarado M.D. - Medicare wellness exam. HRA reviewed . Personal ized preventi on plan competed and rev'd with patient. patient was given copy of PPP at [facility] on of visit. Problem Code: Z00.00; Problem Code Type: ICD-10; MD Amy MARTINEZ Dr, [place], [address] , [facility] 4 10:41:25 Seborrhe ic dermatit is 61987663 Active 201705/19/19 20 - Comments only - Jorge Alvarado M.D. - Discusse d that it is okay to use a very low potency steroid cream such as hydrocor tisone cream on his face regularl y, with a 4 to 5-day medicati on vacation every 2 weeks. Use this along with Lamisil. Discusse d with dermatambar mccallum when he sees them. Problem Code: L21.9; Problem Code Type: ICD-10; MD Amy MARTINEZ Dr, [place], [address] , [facility] 4 10:41:25 Cough 35643630 Completed 201711/27/2017 11/14/19 18 - Comments only - Jorge Alvarado M.D. - Lungs are clear. Discusse d symptoma tic treatmen t (see pt instruct ions). patient instruct ed to call w/ worsenin g or persiste nt symptoms . Problem Code: R05; Problem Code Type: ICD-10; Not Available [facility] 3 04:37:53 Nocturia 066140855 Completed 201704/25/2023 05/20/19 21 - Deterior ated - Tracy Fletcher - Symptoms of nocturia and increase d frequenc y/urgenc y worsened since last discusse d. Currentl y taking [employer]ier for symptom manageme nt. Wonderin g about recommen dations for high quality suppleme nts and appropri ate dosing. Would like to continue with natural suppleme nts for time being. - Recommen d Saw Soldier at 320mg/d for addition al 3 months. - Call if symptoms worsen or fail to improve to discuss pharmece utical manageme nt options. Problem Code: R35.1; Problem Code Type: ICD-10; MD Amy MARTINEZ Dr, [place], [address] , [facility] 4 10:41:52 Right lower quadrant pain 179400632 Completed 201704/25/2023 09/23/19 20 - Comments only - Jorge Alvarado M.D. - Present intermit tently for years. Has never done PT for it. Offered PT, but he declines . Not botherin g him currentl y. I asked him to let me know in the future if he does want a referral to PT. Problem Code: R10.31; Problem Code Type: ICD-10; MD Amy MARTINEZ Dr, [place], [address] , [facility] 4 10:41:52 Abnormal finding on evaluati on procedur e 167664144 Completed 201806/11/2018 Problem Code: R89.9; Problem Code Type: ICD-10; Not Available [facility] 3 04:37:54 Disorder of skin and/or subcutan eous tissue 48980860 Completed 201804/25/2023 05/19/19 20 - Comments only - Jorge Alvarado M.D. - It appears that he has an upcoming appointm ent at [facility], although I do not know if that will be canceled due to the pandemic . We will have the office call him with this informat ion, and with the number to contact their office and confirm appointm ent or reschedu le as appropri ate. Problem Code: L98.9; Problem Code Type: ICD-10; MD Amy MARTINEZ Dr, [place], [address] , [facility] 4 10:41:52 Hyperlip idemia 03552046 Active 201905/24/19 22 - Comments only - Jorge Alvarado M.D. - Lipids: TC 188 ( 2:18:00 PM) LDL 108 ( 2:18:00 PM) HDL 64 ( 2:18:00 PM) TG 82 (04/01/2 021 2:18:00 PM) Tolerate s statin well. Check CMP today. Problem Code: E78.5; Problem Code Type: ICD-10; JORGE ALVARADO MD [address], [place], [address] , [facility] 4 10:41:26 External dav m 3182544 Completed 201909/29/2019 09/23/19 20 - Comments only - Jorge Alvarado M.D. - Mild. Warm compress es, call with worsenin g. Problem Code: H00.019; Problem Code Type: ICD-10; Not Available [facility] 3 04:37:54 Screenin g for malignan t neoplasm of colon Completed 202004/25/2023 Problem Code: Z12.11; Problem Code Type: ICD-10; MD Amy MARTINEZ Dr, [place], [address] , [facility] 4 10:41:52 Closed fracture of single right rib 43002681873 087910 Completed 202009/15/2020 09/09/19 21 - Comments only - Jorge Alvarado M.D. - Pain is slowly improvin g. Reviewed timeline for recovery from rib fracture . Reviewed bracing for Valsalva . APAP/ibu profen for pain. Increase activity as tolerate d, with caution with lifting/ pushing/ pulling. Call with any concerns . Problem Code: S22.31xA ; Problem Code Type: ICD-10; Not Available [facility] 3 04:37:54 Removal of suture Completed 202104/07/2021 03/31/19 22 - Comments only - Jorge Alvarado M.D. - Procedur e note: #2 simple sutures on posterio r L thigh removed by standard procedur e. Patient tolerate d procedur e well, w/o complica tions. Problem Code: Z48.02; Problem Code Type: ICD-10; Not Available [facility] 3 04:37:54 Viral screenin g Completed 202104/07/2021 03/31/19 22 - Comments only - Jorge Alvarado M.D. - Rapid antigen test here negative . Document ation provided to patient. Problem Code: Z11.52; Problem Code Type: ICD-10; Not Available [facility] 3 04:37:54 Herpesvi bebeto infectio n 40681694 Completed 202104/25/2023 Problem Code: B00.9; Problem Code Type: ICD-10; MD Amy MARTINEZ Dr, [place], [address] , [facility] 4 16:59:12 Adult health examinat ion Completed 202106/22/2021 05/24/19 22 - Comments only - Jorge Alvarado M.D. - Medicare wellness exam. HRA reviewed . Personal ized preventi on plan competed and rev'd with patient. patient was given copy of PPP at [facility] on of visit. Problem Code: Z00.00; Problem Code Type: ICD-10; MD Amy MARTINEZ Dr, [place], [address] , [facility] 4 10:41:25 Nicotine dependen ce 22616928 Completed 202104/25/2023 05/24/19 22 - Comments only - Jorge Alvarado M.D. - Outside window for lung ca screenin g, but needs AAA screen - ordered. Problem Code: Z87.891; Problem Code Type: ICD-10; MD Amy MART[address]Z Dr, [place], [address] , [facility] 4 10:41:52 Benign prostati c hyperpla gordon 641162945 Active 202105/24/19 22 - Comments only - Jorge Alvarado M.D. - with signific ant sx burden. Declines rectal exam today. Will check PSA. See pt inst re: botanica ls/suppl ements. He prefers to avoid pharmace uticals, but I did encourag e him to consider tamsulos in if sx not improved in a few mos. Problem Code: N40.0; Problem Code Type: ICD-10; MD Amy MARTINEZ Dr, [place], [address] , [facility] 4 10:41:25 Superfic ial injury of conjunct deb 8301464 Completed 202101/13/[address], [place], [address] , [facility] 4 16:59:22 Localize d eruption of skin 957693262 Completed 202102/06/2022 01/25/20 22 - Comments only - Jorge Alvarado M.D. - No c/w shingles . ? [...] R21; Problem Code Type: ICD-10; Not Available [facility] 3 04:37:55 Sleep disorder 19447820 Completed 202102/06/2022 01/25/20 22 - Comments only - Jorge Alvarado M.D. - Due to pain from shoulder dislocat ion. Discusse d sleep aid vs. muscle relaxant . Trial Ambien, intermit tently and only prn. Rx sent for #5 tabs. He knows this is not to be used regularl y or long-ter m. He will call if ineffect adalgisa. Problem Code: G47.8; Problem Code Type: ICD-10; Not Available [facility] 3 04:37:56 Rupture of rotator cuff of left shoulder 45789980048 311456 Completed 202205/28/2022 Problem Code: M75.102; Problem Code Type: ICD-10; Not Available [facility] 3 04:37:56 Fitting of hearing aid Completed 202204/25/2023 Problem Code: Z46.1; Problem Code Type: ICD-10; MD Amy MARTINEZ Dr, [address] 10:41:52 Bursitis of right knee 78234347686 40599 Completed 202206/23/2022 05/29/19 23 - Comments only - Jorge Alvarado M.D. - Infrapat avel. Waxes and wanes. Not painful or limiting . Likely r/t previous injury, surgery, OA. He will let me know if it becomes botherso me and I will refer to PT and ortho. Problem Code: M70.51; Problem Code Type: ICD-10; Not Available [facility] 3 04:37:56 Prostate specific antigen above referenc e range 222808393 Completed 202204/25/2023 Problem Code: R97.20; Problem Code Type: ICD-10; MD Amy MARTINEZ Dr, [address] 10:41:52 Asthenia 39811887 Completed 202204/25/2023 Problem Code: R53.1; Problem Code Type: ICD-10; MD Amy MARTINEZ Dr, [address] 10:41:52 Muscle pain 06947709 Completed 202204/25/2023 Problem Code: M79.10; Problem Code Type: ICD-10; MD Amy MARTINEZ Dr, [facility] [address] [place] [address] 10:41:52 Fatigue 90615602 Completed 202204/25/2023 Problem Code: R53.83; Problem Code Type: ICD-10; MD Amy MARTINEZ Dr, [facility] [address] [facility] 4 10:41:52 Inflamma tory polyarth ropathy 439911749 Completed 202204/25/2023 Problem Code: M06.4; Problem Code Type: ICD-10; MD Amy MARTINEZ Dr, [facility] [address] [facility] 4 10:41:52 Polyp of colon 05714993 Completed 201711/14/2022 Problem Code: K63.5; Problem Code Type: ICD-10; Not Available [facility] 3 04:37:57 Malignan t melanoma of skin 00813667 Completed 201711/14/2022 Problem Code: C43.9; Problem Code Type: ICD-10; Not Available [facility] 3 04:37:57 Allergic contact dermatit is caused by plant material [id number] 363969 Completed 201711/13/2017 Problem Code: L23.7; Problem Code Type: ICD-10; Not Available [facility] 3 04:37:57 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 - Excellen t response to higher [...] Code Type: ICD-10; MD Amy MARTINEZ Dr, [facility] [address] , [facility] 4 10:41:26 Liver enzymes level above referenc e range 270793057 Completed 202211/30/2022 11/13/19 23 - Comments only - Jorge Alvarado M.D. - Recheck as above. Problem Code: R74.01; Problem Code Type: ICD-10; Not Available [facility] 4 05:38:12 Primary malignan t neoplasm of prostate 59711061 Active [address], [facility] [address] , [facility] 4 10:40:36 SARS-CoV -2 Completed 202301/13/[address], [facility] [address] [place] [address] 4 16:59:15 Acute low back pain 477545671 Active [address], [facility] [address] , [facility] 4 16:01:44 Problem Notes None recorded. Medical Equipment [...] Updated DateTime 5 176.53 cm 25 kg/m2 99580.8 9 g 97.5 [degF] 99 % 99 % 64 /min 128 mm[Hg] 68 mm[Hg] Heather Mcclure MA [facility] 5 12:02:28 Social History Question Answer Notes LastModified by Organization Details LastModified Time Tobacco Smoking Status Former Smoker REBEKAH Morales, [facility] 05/28/2023 09:10:53 Do You Have An Advance Directive? Yes [email or web address] Information not available 05/28/2023 Is Blood Transfusion Acceptable In An Emergency? Yes [email or web address] Information not available 05/28/2023 What Is Your Code Status? Full Code [email or web address] Information not available 05/28/2023 What Type Of Diet Are You Following? REGULAR [email or web address] Information not available 05/28/2023 How Many Days Of Moderate To Strenuous Exercise, Like A Brisk Walk, Did You Do In The Last 7 Days? 7 [email or web address] Information not available 05/28/2023 How Many Times Per Week Do You Exercise? 5-7 Times Per Week [email or web address] Information not available 05/28/2023 When Did You Quit Smoking? 16+yearssinleeann sebastian [email or web address] Information not available 05/28/2023 Date Of Most Recent HSA 05/28/2023 Information not available 05/28/2023 Would You Say That, In General, Your Health Is Very Good [email or web address] Information not available 05/28/2023 How Often Does Anyone, Including Family, Physically Hurt You? Never Information not available 05/28/2023 How Often Does Anyone, Including Family, Insult Or Talk Down To You? Rarely Information not available 05/28/2023 How Often Does Anyone, Including Family, Threaten You With Harm? Never Information not available 05/28/2023 How Often Does Anyone, Including Family, Scream Or Curse At You? Never [email or web address] Information not available 05/28/2023 Within The Past 12 Months, You Worried That Your Food Would Run Out Before You Got Money To Buy More. Never True [email or web address] Information not available 05/28/2023 Within The Past 12 Months, The Food You Bought Just Didn't Last And You Didn't Have Money To Get More. Never True [email or web address] Information not available 05/28/2023 How Hard Is It For You To Pay For The Very Basics Like Food, Housing, Medical Care, And Heating? Would You Say It Is: Not Hard At All [email or web address] Information not available 05/28/2023 In The Past 12 Months, Has Lack Of Reliable Transportation Kept You From Medical Appointments, Meetings, Work Or From Getting Things Needed For Daily Living? No Information not available 05/28/2023 What Is Your Housing Situation Today? I Have Housing. [email or web address] Information not available 05/28/2023 How Often In The Past Year Have You Used Marijuana (including Smoking, Vaping, Dabbing, Or Edibles)? Monthly Or Less [email or web address] Information not available 05/28/2023 How Often In The Past Year Have You Used Prescription Medications That Were Not Prescribed To You? Never [email or web address] Information not available 05/28/2023 How Often In The Past Year Have You Taken Your Own Prescription Medication More Than The Way It Was Prescribed Or For Different Reasons Than Its Intended Purpose? Never [email or web address] Information not available 05/28/2023 How Often In The Past Year Have You Used Other Drugs (for Example, Heroin, Cocaine, Meth, Salvia, Inhalants)? Never Information not available 05/28/2023 Have You Ever Used IV Drugs? No [email or web address] Information not available 05/28/2023 What Matters Most To You? Preventative Medicine [email or web address] Information not available 05/28/2023 During The Past Four Weeks Has Your Physical And Emotional Health Limited Your Social Activities With Family And Friends, Neighbors, Or Groups? Not At All [email or web address] Information not available 05/28/2023 During The Past Four Weeks, Was Someone Available To Help You If You Needed And Wanted Help? (For Example, If You Blaine Very Nervous, Lonely, Or Blue; Got Sick And Had To Stay In Bed; Needed Someone To Talk To; Needed Help With Daily Chores; Or Needed Help Just Taking Care Of Yourself.) Yes- Quite A Bit [email or web address] Information not available 05/28/2023 During The Past Four Weeks, What Was The Hardest Physical Activity You Could Do For At Least 2 Minutes? Moderate Information not available 05/28/2023 Can You Get To Places Out Of Walking Distance Without Help? (For Example, Can You Travel Alone On Buses Or Taxis, Or Drive Your Own Car?) Yes Information not available 05/28/2023 Can You Go Shopping For Groceries Or Clothes Without Someone? s Help? Yes [email or web address] Information not available 05/28/2023 Can You Prepare Your Own Meals? Yes [email or web address] Information not available 05/28/2023 Can You Do Your Housework Without Help? Yes [email or web address] Information not available 05/28/2023 Because Of Any Health Problems, Do You Need The Help Of Another Person With Your Personal Care Needs Such As Eating, Bathing, Dressing, Or Getting Around The House? No [email or web address] Information not available 05/28/2023 Can You Handle Your Own Money Without Help? Yes Information not available 05/28/2023 Are You Having Difficulties Driving Your Car? No [email or web address] Information not available 05/28/2023 Do You Always Fasten Your Seat Belt When You Are In A Car? Yes- Usually [email or web address] Information not available 05/28/2023 How Often During The Past Four Weeks Have You Been Bothered By Any Of The Following Problems? Falling Or Dizzy When Standing Up? Never Information not available 05/28/2023 Sexual Problems? Seldom [email or web address] Informat ion not available 05/28/2023 Trouble Eating Well? Never [email or web address] Information not available 05/28/2023 Teeth Or Denture Problems? Never [email or web address] Information not available 05/28/2023 Problems Using The Telephone? Never Information not available 05/28/2023 Tiredness Or Fatigue? Seldom [email or web address] Information not available 05/28/2023 Have You Had 2 Or More Falls Or Sustained An Injury With A Fall In The Last Year? No [email or web address] Information not available 05/28/2023 Do You Have Difficulty With Walking Or Balance? No [email or web address] Information not available 05/28/2023 Do You Currently Use A Hearing Device? No [email or web address] Information not available 05/28/2023 Do You Currently Have Any Trouble With Your Vision? No Wears Glasses, But No Changes Or Concerns Information not available 05/28/2023 Do You Exercise For About 20 Minutes Three Or More Days A Week? Yes- Most Of The Time [email or web address] Information not available 05/28/2023 Are There Any Safety Concerns In Your Home (see Attached CDC Pamphlet)? No Information not available 05/28/2023 How Often Do You Have Trouble Taking Medicines The Way You Have Been Told To Take Them? I Always Take Them As Prescribed [email or web address] Information not available 05/28/2023 How Confident Are You That You Can Control And Manage Most Of Your Health Problems? Very Confident Information not available 05/28/2023 Do You Currently Have Any Difficulty With Your Hearing? No Information not available 05/28/2023 Date Of Most Recent SBINS 05/28/2023 Information not available 05/28/2023 What Was The Date Of Your Most Recent Tobacco Screening? 02/26/2024 [email or web address] Information not available 02/26/2024 What Is Your Current Pack Years? 20-29packyears [email or web address] Information not available 05/28/2023 What Types Of Sporting Activities Do You Participate In? Walking, Tennis, Yard Work And Carpentry, Farm Work [email or web address] Information not available 05/28/2023 Has Tobacco Cessation Counseling Been Provided? No [email or web address] Information not available 11/12/2023 Do You Have Any Dietary Restrictions? No Information not available 05/28/2023 Do You Or Have You Ever Used Any Other Forms Of Tobacco Or Nicotine? No [email or web address] Information not available 05/28/2023 Sex: Male Functional Status Question Answer Note LastModified by Organization D etails LastModified Time What is your exercise level? Moderate [email or web address] Information not available 05/28/2023 Mental Status None [...] [email or web address] Not available 2022 03:57:32 Brother Pancreatitis [email or web address] Not av ailable 05/28/2023 09:09:50 Notes:*Problem: father- yoana ntia passed August 2021 mother: skin cancer, passed 2000 70, 73: sister HTN, brother healthy Medical History No medical history recorded. Immunizations Vaccine Type Date Status Note Provider Nam e and Address Organization Details Recorded Time Influenza, high-dose, trivalent, PF 4 completed JORGE ALVARADO MD [address], [place], [address], [facility] 12/02/2023 15:57:00 Td (adult), 2 Lf tetanus toxoid, preservative free, adsorbed 9 completed Not Available [facility] 12/28/2022 06:23:50 Influenza, split virus, quadrivalent, PF 9 completed Not Available [facility] 12/28/2022 06:23:51 Influenza, split virus, quadrivalent, preservative 8 completed Not Available [facility] 12/28/2022 06:23:51 Influenza, split virus, quadrivalent, preservative 8 completed Not Available [facility] 12/28/2022 06:23:51 zoster recombinant 0 completed Not Available [facility] 12/28/2022 06:23:51 zoster recombinant 0 completed Not Available [facility] 12/28/2022 06:23:51 Influenza, high-dose, quadrivalent, PF 2 completed Not Available [facility] 12/28/2022 06:23:51 COVID-19, mRNA, LNP-S, PF, 100 mcg/0.5mL dose or 50 mcg/0.25mL dose 1 completed Not Available [facility] 12/28/2022 06:23:51 COVID-19, mRNA, LNP-S, PF, 100 mcg/0.5mL dose or 50 mcg/0.25mL dose 1 completed Not Available [facility] 12/28/2022 06:23:51 COVID-19, mRNA, LNP-S, PF, 100 mcg/0.5mL dose or 50 mcg/0.25mL dose 1 completed Not Available [facility] 12/28/2022 06:23:51 SARS-COV-2 (COVID-19) vaccine, UNSPECIFIED 2 completed Not Available [facility] 12/28/2022 06:23:52 Pneumococcal conjugate PCV20, polysaccharide NCH277 conjugate, adjuvant, PF 3 completed Not Available [facility] 12/28/2022 06:23:52 pneumococcal polysaccharide PPV23 1 completed Not Available [facility] 12/28/2022 06:23:52 influenza, unspecified formulation 1 completed Not Available [facility] 12/28/2022 06:23:52 Influenza, high-dose, quadrivalent, PF 3 completed Not Available [facility] 03/01/2023 05:33:20 Past Encounters Encounter ID Performer Location Encounter Start Date Encounter Closed Date Diagnosis/Indication Diagnosis SNOMED-CT Code Diagnosis ICD10 Code Diagnosis Note [id number] JORGE ALVARADO MD [address] [phone] 02/26/2024 11:56:17 02/26/2024 12:30:53 Chronic cough 79178355 R05.3 - Present for 8-9 months, no clear trigger- Occasional mucus production - Plan:- Order chest x-ray- Follow up on results, consider further evaluation if needed Mass of neck 443817476 R 22.1 - Present for a couple of months- Lymph node vs. cyst vs. malignancy .- Possibly increasing in size, non-painfu l- Plan:- Order neck ultrasound - Order complete blood count (CBC)- Follow up on results, consider further evaluation if needed Infrapatel lar bursitis of right knee 260303319 M70.51 - History of knee surgery- On-going [...] ID Mendez Member ID Guarantor Name 02/26/2024 1 MEDICARE [place]: [employer] Rolando Brown [id number] 3 Rolando Singletary Kevin 02/26/2024 2 FIRST [employer] - [employer] - PLAN F (MEDICARE SUPPLEMENT) Rolando rBown [id number] Rolando Brown Notes Date Note Type Note [...] also help with his other symptoms. JORGE ALVARADO MD [address], [place], [address], [facility]. 02/26/2024 16:20:14
--- OUTSIDE RECORDS SUMMARY | 2024-03-24 00:39 | XMS_ITS | Encounter Summary ---
[place] [address] Care Team Providers Care Slitting Machine Feeder Name Role Phone Jeff Pfeiffer MD Primary Care Provider [phone] Reason for Referral * Diagnostic Test (Routine) - Closed Specialty Diagnoses / Procedures Referred By Contac t Referred To Contact Radiology Diagnoses Elevated PSA Procedures MRI Pelvis wwo (Prostate) Radha Khanna APRN [address] [place] [address] [place] [address] Referral ID Status Reason Start Date Expiration Date V isits Requested Visits Authorized [id number] Closed Specialty Service Requested 02/05/2023 08/06/2024 1 1 Reason for Visit * Diagnostic Test (Routine) - Closed Specialty Diagnoses / Procedures Referred By Contac t Referred To Contact Radiology Diagnoses Elevated PSA Procedures MRI Pelvis wwo (Prostate) Radha Khanna APRN [address] [place] [address] [place] [address] Referral ID Status Reason Start Date Expiration Date V isits Requested Visits Authorized [id number] Closed Specialty Service Requested 02/05/2023 08/06/2024 1 1 Encounter Details Date Type Department Care Team (Latest Contact Info) Description 03/14/2023 4:21 PM EST - 03/14/2023 11:59 PM EST Hospital [place] [address] Radha Khanna APRN [address] [place] [address] Elevated PSA Discharge Disposition: Home Social History [...] Scheduled View Only Radiation Oncology at [address] [phone] 04/17/2024 9:30 AM EST TH Visit (TeleHealth) Radiation Oncology at [address] [phone] Leroy Berumen MD [address] [place] [address] [place] [address] documented as of this encounter Procedures Procedure [...] References: Edilia S1, Nilo JH1, Remy S1, Disa C1, Barnes J1, Yaa M1, Gold S1, Browning G1, Raybeltran K1, Jacobo MJ1, Shoaib BJ1, Huey PA1, Abdullahi PL1, Jessica B1. ??A Grading System for the Assessment of Risk of Extraprostatic Extension of Prostate Cancer at Multiparametric MRI. Radiology. 2019 Mar;290(3):709-719. doi: 10.1148/radiol.[id number]. Epub 2018Mar 11. Thank you for letting us participate in the care of this patient. ??If you are a health care provider and have any questions regarding this report, please contact the number below. ??For patients who have questions please contact the health care director rn that requested your imaging first. ? Electronically signed by: Jann Pacheco MD, [facility] ([phone]), at 03/15/2023 12:47 PM Narrative 03/15/2023 12:47 PM EST EXAMINATION: MRI [...] Barnes J1, Czarniecki M1,Gold S1, Browning G1, Raybeltran K1, Jacobo MJ1, Shoaib BJ1, Arzate PA1, Abdullahi PL1, Jessica B1.A Grading System for the Assessment of Risk of Extraprostatic Extension of Prostate Cancer at Multiparametric MRI. Radiology. 2019Mar;290(3):709-719. doi: 10.1148/radiol.[id number]. Epub 2018Mar 11. Thank you for letting us participate in the care of this patient. If youare a health care provider and have any questions regarding this report,please contact the number below. For patients who have questions please contactthe health care director rn that requested your imaging first. Electronically signed by: Jann Pacheco MD, [facility]([phone]), at 03/15/2023 12:47 PM Radha Khanna APRN [facility] MRI ORDERABLES documented in this encounter Visit [...] mLs documented in this encounter Care Teams Slitting Machine Feeder Relationship Specialty Start Date End Date Jeff Pfeiffer MD [address] [place] [address] PCP - General Family Medicine 03/12/23 documented as of this encounter
--- OUTSIDE RECORDS SUMMARY | 2024-03-24 00:39 | XMS_ITS | Referral Summary ---
Author Organization [facility] Address [address] [place] [address] Care Team Providers Care Laser Engineer Name Role Phone Jeff Pfeiffer MD [...] Insurance [employer] MEDICARE [employer] [place] Care Teams Laser Engineer Relationship Specialty Start Date End Date Jeff Pfeiffer MD [address] [place] [address] [address] [place], [place] [address] PCP - General 08/27/22
--- OUTSIDE RECORDS SUMMARY | 2024-03-24 00:39 | XMS_ITS | Encounter Summary ---
Author Organization [facility] Address [address] [place] [address] Care Team Providers Care Refinery Operator Assistant Name Role Phone Jeff Pfeiffer MD Primary Care Provide r Encounter Details Date Type Department Care Team (Late st Contact Info) Description 04/19/2023 Lab Requisition [facility] Pathology & Laboratory Medicine - [facility] [address] [place] [address] Derrick Blue MD [address] [place] [address] [place] [address] Elevated prostate specific antigen (PSA) [...] management options, if applicable. 04/25/2023 6:14 EST [facility] Final Diagnosis A. 1. PROSTATE, RIGHT BASE LATERAL, BIOPSY: - Benign prostatic glands and stroma. B. 2. PROSTATE, RIGHT BASE MEDIAL, BIOPSY: - Benign prostatic glands and stroma. C. 3. PROSTATE, RIGHT MID LATERAL, BIOPSY: - Prostatic tissue with focal atrophy. D. 4. PROSTATE, RIGHT MID MEDIAL, BIOPSY: - Prostatic adenocarcinoma, involving 5% (0.7 mm) of 1/1 core. - Emely Score: 3 + 3 = 6 (grade group 1). - Core: 15.2 mm E. 5. PROSTATE, RIGHT APEX LATERAL, BIOPSY: - Prostatic adenocarcinoma, involving 30% (4.4 mm) of 1/1 core. See comment. - Global [place] Score: 3 + 3 = 6 (grade [...] 1.5% (0.2 mm) of 1/1 core. - [place] Score: 3 + 3 = 6 (grade group 1). - Core: 14.1 mm L. 12. PROSTATE, LEFT APEX MEDIAL, BIOPSY: - Several small foci of atypical glands. 04/25/2023 6:14 EST [facility] Diagnosis Comment Specimen [...] performance characteristics have been determined by [facility] and/or by the referring laboratory. [...] at the intradepartmental consultation conference. 04/25/2023 6:14 [facility] Attestation There was significant resident/fellow involvement in the diagnostic evaluation of this case. By the signature below, the attending physician certifies that they have personally conducted a gross and/or microscopic examination of the described specimens and rendered or confirmed the above diagnosis. 04/25/2023 6:14 [facility] at 0614 Clinical History Elevated PSA; clinical diagnosis code: R97.20 04/25/2023 6:14 [facility] Gross Description A. Received in [...] L1. Jolanta Coe 04/20/2023 13:46 04/25/2023 6:14 [facility] Resident/Fell ow: Klever Peralta MD 04/25/2023 6:14 [facility] Performing Lab [facility] 04/25/2023 6:14 [facility] Scanned Images 04/25/2023 6:14 [facility] Tissue PROSTATIC STRUCTURE / Unknown [...] Blue MD PATHOLOGY ORDERABLES Luanne l Result [facility] [address] [place], [place] [address] documented in this encounter Visit Diagnoses Diagnosis Elevated prostate specific antigen (PSA) documented in this encounter Care Teams Refinery Operator Assistant Relationship Specialty Start Date End Date Jeff Pfeiffer MD [address] [facility] [address] [place] [address] PCP - General 08/27/22 documented as of this encounter
--- OUTSIDE RECORDS SUMMARY | 2024-03-24 00:39 | XMS_ITS | Encounter Summary ---
Author Organization [facility] Address [address] [place] [address] Care Team Providers Care Cartridge Assembling Machine Adjuster Name Role Phone Jeff Pfeiffer MD Primary Care Provide r Encounter Details Date Type Department Care Team (Late st Contact Info) Description 06/20/2022 Lab Requisition [facility] Pathology & Laboratory Medicine - [facility] [address] [place] [address] Outr Resulting Lab, Provider Social History Tobacco [...] <=4.5 ng/mL 06/20/2022 22:12 EDT [facility] Blood VENOUS BLOOD / Unknown 06/20/2022 10:05 EDT 06/20/2022 21:21 EDT Narrative [facility] - 06/20/2022 22:12 EDT NOTE: Serum PSA concentration should not be interpreted as absolute evidence for the presence or absence of malignant disease. Assayed on Siemens ADVIA Centaur XPT using chemiluminescent technology.??Values obtained by using different assay methods cannot be used interchangeably. us Provider Outr Resulting Lab CHEMISTRY & BLOOD GA S ORDERABLES Final Result [facility] [address] [place] [address] documented in this encounter Visit Diagnoses Not on filedocumented in this encounter Care Teams Cartridge Assembling Machine Adjuster Relationship Specialty Start Date End Date Jeff Pfeiffer MD [address] [place] [address] PCP - General 08/27/22 documented as of this encounter
--- OUTSIDE RECORDS SUMMARY | 2024-03-24 00:39 | XMS_ITS | Encounter Summary ---
Author Organization [facility] Address [address] [place] [address] Care Team Providers Care Low Altitude Air Defense Gunner Name Role Phone Jeff Pfeiffer MD Primary Care Provide r Encounter Details Date Type Department Care Team (Late st Contact Info) Description 05/21/2019 Lab Requisition [facility] Pathology & Laboratory Medicine - [facility] [address] [place] [address] Unknown, Provider, Social History Tobacco Use Types [...] 0.0 - 4.5 ng/mL 05/22/2019 10:00 EDT [facility] Blood VENOUS BLOOD / Unknown 05/20/2019 9:20 EDT 05/21/2019 15:48 EDT Narrative [facility] - 05/22/2019 10:00 EDT NOTE: Serum PSA concentration should not be interpreted as absolute evidence for the presence or absence of malignant disease. Assayed on Siemens ADVIA Centaur XPT using chemiluminescent technology.??Values obtained by using different assay methods cannot be used interchangeably. us Provider Unknown CHEMISTRY & BLOOD GAS ORDERA BLES Final Result [facility] [address] [place] [address] documented in this encounter Visit Diagnoses Not on filedocumented in this encounter Care Teams Low Altitude Air Defense Gunner Relationship Specialty Start Date End Date Jeff Pfeiffer MD [address] [place] [address] PCP - General 08/27/22 documented as of this encounter
--- OUTSIDE RECORDS SUMMARY | 2024-03-24 00:39 | XMS_ITS | Encounter Summary ---
Author Organization [facility] [place] [address] Care Team Providers Care Second Grade Teacher Name Role Phone Jeff Pfeiffer MD Primary Care Provider [phone] Reason for Visit * Consultation (Routine) - Closed Specialty Diagnoses / Procedures Referred By Neil keller Referred To Contact Radiation Oncology Diagnoses Malignant neoplasm of prostate Derrick Blue MD [address] [place] [address] Leroy Berumen MD [address] [place] [address] [place] [address] Referral ID Status Reason Start Date Expiration Date V isits Requested Visits Authorized [id number] Closed Consult, Test & Treat 05/30/2023 05/29/2024 1 1 Encounter Details Date Type Department Care Team (Late st Contact Info) Description 06/19/2023 11:00 AM EDT Office Visit Radiation Oncology at [address] [phone] Leroy Berumen MD [address] [place] [address] [place] [address] Malignant neoplasm of prostate Social History Tobacco Use Types Packs/Day Years Used Date Smoking Tobacco: Former Cigarettes Q uit: 1989 Smokeless Tobacco: Never Tobacco Cessation:Counseling Given: Not Answered Alcohol Use Standard Drinks/Week Comments Yes 15 (1 standard drink = 0.6 oz pu re alcohol) [facility] Utilities Answer Date Recorded In the [...] are considered medium risk. 2. Your highest [place] Group score was 2 (this is how aggressive your prostate cancer looks under the microscope). [place] scores for cancer range from 1-5, and [...] or to the Active Surveillance Clinic at [facility], which is run by our prostate [...] you to my colleague Dr. Tavares in [place], who specializes in the placement of radioactive [...] a prostate MRI which we do at [facility], that allows us to better see [...] within 4-6 weeks of completion radiation. 6. All Source Analyst Complications: These are more worrisome and are [...] for urination). There may be a slow, mcc decrease in your sexual function as well, [...] do not hesitate to call me at [phone] with any other questions or concerns you have. IfI am not here, one of our radiation oncology nurses can assist you or help you get in touch with me. A Radiation Oncology doctor is also vascular sonographer after our normal hours and on weekends for urgent questions or concerns related to radiation treatments that can not wait until normal business hours. To reach the on-call doctor after-hours, just call and have the book sewing machine operator page the Radiation Oncologist vascular sonographer. And, as always, if you experience any [...] in injury 7. Uncontrollable bleeding Sincerely, Leroy Archer. MD [place], [place] Radiation Oncology documented in this encounter Progress Notes * Leroy Berumen MD - 06/19/2023 11:00 AM EDT Images from the original note were not included. 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 In the mcc, I explained there is an approximately 2% [...] his case to Dr Gurvinder Ugarte at [facility] who routinely performs these implants. ADT was [...] candidate for any currently open trials at [facility]. If his PSA was >10 he [...] REPAIR Left Social History: Driving from - [facility] [place] Lives with - Alone. 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 Alcohol/Drug/Tobacco use - 2 glasses of wine [...] EDH social assessment information entered. Support Systems: [employer] transportation plan: [ X]private vehicle [ ] RCT needs Social Work referral [ ] Unknown at this time needs Social Work referral Barriers to treatment: None Referrals/Interventions: Will see ENTERPRISE ACCOUNT MANAGER per routine during SIM appointment. TEACHING: Learning [...] EST Scheduled View Only Radiation Oncology at [address] [phone] 04/17/2024 9:30 AM EST TH Visit (TeleHealth) Radiation Oncology at [address] [phone] Leroy Berumen MD [address] [place] [address] DR RADIATION ONCOLOGY [place], [place] [id number] documented as of this encounter Visit Diagnoses Diagnosis Malignant neoplasm of prostate documented in this encounter Care Teams Second Grade Teacher Relationship Specialty Start Date End Date Jeff Pfeiffer MD [address] [place] [address] PCP - General Family Medicine 03/12/23 documented as of this encounter
--- OUTSIDE RECORDS SUMMARY | 2024-03-24 00:39 | XMS_ITS | Encounter Summary ---
Author Organization [place] [address] Care Team Providers Care Refrigerating Oiler Name Role Phone Jeff Pfeiffer MD Primary Care Provider [phone] Encounter Details Date Type Department Care Team [...] Scheduled View Only Radiation Oncology at [address] [phone] 04/17/2024 9:30 AM EST TH Visit (TeleHealth) Radiation Oncology at [address] [phone] Leroy Berumen MD [address] [place] [address] DR RADIATION ONCOLOGY [place], [place] [id number] documented as of this encounter Visit Diagnoses Not on filedocumented in this encounter Care Teams Refrigerating Oiler Relationship Specialty Start Date End Date Jeff Pfeiffer MD [address] [place] [address] PCP - General Family Medicine 03/12/23 documented as of this encounter
--- OUTSIDE RECORDS SUMMARY | 2024-03-24 00:39 | XMS_ITS | Encounter Summary ---
Author Organization [facility] Address [address] [place] [address] Care Team Providers Care Visually Impaired Teacher Name Role Phone Jeff Pfeiffer MD Primary Care Provide r Encounter Details Date Type Department Care Team (Late st Contact Info) Description 06/27/2023 Lab Requisition [facility] Pathology & Laboratory Medicine - [facility] [address] [place] [address] Leroy Berumen MD [address] [place] [address] [place] [address] Encounter for other general examination [...] of Dr. Leroy Berumen, a block from [id number] (F1) was sent to [facility] for testing. For Decipher results, please see scanned report in EPIC. 07/08/2023 11:07 EDT [facility] Original (F1) 07/08/2023 11:07 EDT [facility] Original Case Specimen Source Right apex prostate 07/08/2023 11:07 [facility] Original Case Date of Service 04/19/2023 07/08/2023 11:07 [facility] Attestation By the signature below, the attending physician certifies that they have 1) personally conducted a gross and/or microscopic examination of the described specimen(s), and/or personally interpreted the results of laboratory testing of the described specimen(s), and 2) personally rendered or confirmed the above diagnosis. 07/08/2023 11:07 [facility] at 1107 Surgical Pathology [...] Berumen MD PATHOLOGY ORDERABLES Final Resu lt [facility] [address] [place] [address] documented in this encounter Visit Diagnoses Diagnosis Encounter for other general examination documented in this encounter Care Teams Visually Impaired Teacher Relationship Specialty Start Date End Date Jeff Pfeiffer MD [address] [place] [address] [address] [place], [place] [phone] PCP - General 08/27/22 documented as of this encounter
--- OUTSIDE RECORDS SUMMARY | 2024-03-24 00:39 | XMS_ITS | Encounter Summary ---
Author Organization [facility] Address [address] [place] [address] Care Team Providers Care Biofuels Engineering Manager Name Role Phone Jeff Pfeiffer MD Primary Care Provide r Encounter Details Date Type Department Care Team (Late st Contact Info) Description 05/24/2021 Lab Requisition [facility] Pathology & Laboratory Medicine - [facility] [address] [place] [address] Outr Resulting Lab, Provider Social History Tobacco [...] PSA 3.1 <=4.5 ng/mL 05/24/2021 17:35 EDT [facility] Blood VENOUS BLOOD / Unknown 05/23/2021 8:54 EDT 05/24/2021 16:31 EDT Narrative [facility] - 05/24/2021 17:35 EDT NOTE: Serum PSA concentration should not be interpreted as absolute evidence for the presence or absence of malignant disease. Assayed on Siemens ADVIA Centaur XPT using chemiluminescent technology.??Values obtained by using different assay methods cannot be used interchangeably. us Provider Outr Resulting Lab CHEMISTRY & BLOOD GA S ORDERABLES Final Result [facility] [address] [place] [address] documented in this encounter Visit Diagnoses Not on filedocumented in this encounter Care Teams Biofuels Engineering Manager Relationship Specialty Start Date End Date Jeff Pfeiffer MD [address] [place] [address] PCP - General 08/27/22 documented as of this encounter
--- OUTSIDE RECORDS SUMMARY | 2024-03-24 00:39 | XMS_ITS | Encounter Summary ---
Author Organization [facility] Address [address] [place] [address] Care Team Providers Care Refinery Operator Light Ends Recovery Name Role Phone Jeff Pfeiffer MD Primary Care Provide r Encounter Details Date Type Department Care Team (Late st Contact Info) Description 05/24/2022 Lab Requisition [facility] Pathology & Laboratory Medicine - [facility] [address] [place] [address] Outr Resulting Lab, Provider Social History Tobacco [...] PSA 4.8(H) <=4.5 ng/mL 05/24/2022 22:51 EDT [facility] Blood VENOUS BLOOD / Unknown 05/24/2022 9:15 EDT 05/24/2022 21:39 EDT Narrative [facility] - 05/24/2022 22:51 EDT NOTE: Serum PSA concentration should not be interpreted as absolute evidence for the presence or absence of malignant disease. Assayed on Siemens ADVIA Centaur XPT using chemiluminescent technology.??Values obtained by using different assay methods cannot be used interchangeably. us Provider Outr Resulting Lab CHEMISTRY & BLOOD GA S ORDERABLES Final Result [facility] [address] [place] [address] documented in this encounter Visit Diagnoses Not on filedocumented in this encounter Care Teams Refinery Operator Light Ends Recovery Relationship Specialty Start Date End Date Jeff Pfeiffer MD [address] [place] [address] PCP - General 08/27/22 documented as of this encounter
--- OUTSIDE RECORDS SUMMARY | 2024-03-24 00:39 | XMS_ITS | Encounter Summary ---
Author Organization [facility] Address [address] [place] [address] Care Team Providers Care Flue Tile Press Operator Name Role Phone Jeff Pfeiffer MD Primary Care Provide r Encounter Details Date Type Department Care Team (Late st Contact Info) Description 01/24/2023 Lab Requisition [facility] Pathology & Laboratory Medicine - [facility] [address] [place] [address] Outr Resulting Lab, Provider Social History Tobacco [...] PSA 8.6(H) <=4.5 ng/mL 01/24/2023 20:10 EST [facility] Blood VENOUS BLOOD / Unknown 01/24/2023 9:20 EST 01/24/2023 18:26 EST Narrative [facility] - 01/24/2023 20:10 EST NOTE: Serum PSA concentration should not be interpreted as absolute evidence for the presence or absence of malignant disease. Assayed on Siemens ADVIA Centaur XPT using chemiluminescent technology.??Values obtained by using different assay methods cannot be used interchangeably. us Provider Outr Resulting Lab CHEMISTRY & BLOOD GA S ORDERABLES Final Result [facility] [address] [place] [address] documented in this encounter Visit Diagnoses Not on filedocumented in this encounter Care Teams Flue Tile Press Operator Relationship Specialty Start Date End Date Jeff Pfeiffer MD [address] [place] [address] PCP - General 08/27/22 documented as of this encounter
--- NOTE | 2024-03-24 06:30 | DI.US_ITS ---
Exam(s) US NEEDLE LOCAL OTHER WO RAD EXAM: Right submandibular mass,ultrasound guided bx,r22.1 COMPARISON: No exams were available for comparison TECHNIQUE: Ultrasound performed using standard protocol. FINDINGS: Sonography was provided for during can during the performance of a right submandibular mass biopsy. Please refer to the procedure report for complete details. DATA REPOSITORY:
--- NOTE | 2024-03-24 11:35 | PAPNONF_PTH ---
PATIENT: Rolando Brown LOC: [facility] U#:[id number] AGE/SX: 68/M ROOM: RE03/24/[address]: Mich Martins MD : 1955 BED: DIS: 03/24/2024 SPEC #: [id number] RECD: 03/24/24 13:06 STATUS: SHAZIA REQ #: [id number] JULIO CESAR: 03/24/24 11:[address]: Mich Martins DEPT: [facility] Cytology RECD BY: Nickie Faith ENTERED: 03/24/24 13:08 SP TYPE: VERN RANGEL DR: Jorge Pfeiffer Tissues: 1 - BODY FLUID CYTO-FINE NEEDLE [facility] Procedures: BODY FLUID CYTO-FINE NEEDLE ASPIRATE[facility] Comments: [id number] (PATH FNA CONSULT) (REFRIGERATED)
--- NOTE | 2024-03-24 11:48 | W.PROCNOTE ---
Date of service: 03/24/24 Time of Service: 11:48 Procedure Note Date of procedure: 03/24/24 Procedure: Ultrasound-guided FNA, right submandibular mass, pathology present Surgeon/Proceduralist/Physician: Mich Martins Procedure Diagnosis: Right submandibular mass Procedure Indications: Patient with a right submandibular mass with a history of prostate cancer and a more distant history of melanoma. Options were explained to the patient regarding further management. He elected to undergo the above procedure for more definitive diagnosis. Consent was filled out and signed prior to procedure. Procedure Description: The patient was positioned in supine position and prepped and draped in appropriate fashion. Ultrasound was used to localize the bilobed nodule within the right submandibular gland. 1% lidocaine with 1/100,000 epinephrine was injected into the skin and subcutaneous tissues overlying the mass and then a 25-gauge needle passed into the mass and then repeatedly through the body of the mass. Specimen was then handed to pathology who evaluated for cellular adequacy, and confirms that this did not appear to be a lymphoid process. The site was inspected for hemostasis and after ensuring adequate hemostasis, a sterile dressing was applied. The patient was then allowed to sit, stand, and ambulate. He tolerated the procedure well. His left marginal mandibular function remained intact. He will remove the bandage in a couple of hours and not replace it. He will call with any signs of infection or if he does not hear from me within 1 week with regard to the outcome of the biopsy. Further care will depend upon the findings. He had no further questions. He is comfortable with this plan.
== END 2024-03-24 00:47 ==
LOC: DI 00:28
PROVIDERS: PCP Family Medicine; Visit Provider Otolaryngology
DX: D11.9 Benign neoplasm of major salivary gland, unspecified (principal)
CPT/HCPCS: 10005; 76942; 88104

== ENCOUNTER 2024-03-26 09:56 | Outpatient (REF) | payer MEDICARE, SELFPAY ==
[2024-03-26 10:52] LABS: Bilirubin Negative (Negative); Blood Trace-intact (Negative); Clarity Clear (Clear); Glucose Negative (Negative); Ketones Negative (Negative); Leukocyte Esterase Negative (Negative); Nitrite Negative (Negative); Urobilinogen 0.2 mg/dL (Up to 0.2); pH 5.5 (5-8)
[2024-03-26 10:59] LABS: Bacteria Rare HPF (Negative); C & S Indicated? No; Casts Negative LPF (Negative); Crystals Negative HPF (Negative); Epithelial Cells Negative HPF (Negative); Mucus Negative (Negative); RBC 0-2 HPF (0-2); WBC Negative HPF (0-5)
== END 2024-03-26 09:57 | disposition home or self-care (01) ==
LOC: LBN 09:56
PROVIDERS: PCP Family Medicine; Visit Provider Radiology Radiation Oncology
DX: R30.0 Dysuria (principal)
CPT/HCPCS: 81003; 81015

== ENCOUNTER 2024-03-28 09:46 | Emergency (ER) | payer MEDICARE, SELFPAY ==
[2024-03-28 09:52] VITALS: BP 126/72; PULSE 78; RESP 18; TEMP 35.9; O2SAT 98
--- OUTSIDE RECORDS SUMMARY | 2024-03-28 10:00 | XMS_ITS ---
Author Organization Unknown Address [address] [place] [phone] Phone Care Team Providers Care Optical Engineering Technician Name Role Phone DONNA GONZALEZ Registered Nurse Unavailable LEONARD Marcial Attending Unavailable DARRIN [facility] Unavailable CHRISTIANO Marcial Primary Unavailable UNLISTED PROVIDER - REQUESTED Xhandoff Un available Results XR HUMERUS 2V LT* - Complete d: 12/27/2021 16:47 LOINC: [place], [place] [address] PACS TIMBER REPAIRER REPORT Patient Name: CRUZ HESTER MRN: Sex: : Age: [id number] M 1955 66 Account: Accession: Admit: StayType: [id number] 12/27/2021 E/R Ordered: Order ID: Submitted: Ordering Provider: 12/27/2021 16:19 [id number] SORAYA GONZALEZ Completed: Technologist: Resulted: 12/27/2021 16:47 [...] LT* - Completed: 12/27/2021 16:47 [facility] [place], [place] [address] PACS TIMBER REPAIRER REPORT Patient Name: CRUZ HESTER MRN: Sex: : Age: [id number] M 1955 Account: Accession: Admit: StayType: [id number] 12/27/2021 E/R Ordered: Order ID: Submitted: Ordering Provider: 12/27/2021 16:19 [id number] SORAYA GONZALEZ Completed: Technologist: Resulted: 12/27/2021 16:47 [...] No other bone lesions evident in the trncs-nz-gckp of this shoulder study. IMPRESSION: No acute osseous findings. Other findings as above. Report Digitally Signed by Karan Clay on 12/27/2021 04:54 PM EST Social History Type Status Start Date End Date Code Code Syst em Smoking History Never smoker (Never Smoked) 005427836 SNOMED CT Sex Male Vital Signs Vital Sign Value Unit [facility] Date/Time Recent/Initial? Code Code System Body Mass Index 20.34 kg/m2 12/27/2021 16:07 Initial 43078 -5 LOINC Systolic Blood Pressure 131 mm[Hg] [...] Saturation 97 % 2021 17:58 Most Recent 00291 -5 LOINC O2 Saturation 97 % 2021 16:07 Initial 91106 -5 LOINC Pulse 65.0 /min 12/27/2021 17:58 Most Recent 8867- 4 LOINC Pulse 72.0 /min 12/27/2021 16:07 Initial 8867- 4 LOINC Respiration 18 /min 12/28/19 22 17:58 Most Recent 9279- 1 LOINC Respiration 16 /min 12/28/19 22 16:07 Initial 9279- 1 LOINC Temperature 36.7 Kaykay 98.1 F 12/28/19 22 16:07 Initial 8310- 5 LOINC Weight 68.04 kg 150.00 lbs 12/27/2021 16:07 Initial 94750 -7 LOINC Hospital Discharge Instructions Should you [...] FDA Left shoulder rotator cuff repair 03/23 0602842 3 12/18/2025 Arthre x(R) AR-2326 BCC Tendon/lig ament bone anchor, bioabsorba ble 0100 8888 6702 7312 1725 1130 1014 6820 01 Active FDA Left shoulder rotator cuff repair 03/23 3359789 1 01/17/2025 Arthre x(R) AR-2600 SBS-4 Problems Problem Start Date Resolved Date Status Code Code System DEPRESSION 12/27/2021 resolved 63856997 SNOMED-C T HYPERTENSION 12/27/2021 resolved 89061517 SNOMED -CT Allergies and Adverse Reactions Allergy Substance Reaction Severity Start Date Concern Status Co de Code System No Known Allergies Active 263588758 SNO MED-CT Plan of Treatment MRI UPPER EXT JOINT W/O CONTRAST 2021 US ABDOMEN LIMITED 1 ORGAN 06/12/2021 Encounters Encounter Diagnosis Start Date Code Code Sys tem Unspecified dislocation of l eft shoulder joint, initial encounter 12/27/2021 SNOMED-CT Personal Care Team Section Performer Name Performer Role Active Date Inactive Da zohreh
--- OUTSIDE RECORDS SUMMARY | 2024-03-28 10:01 | XMS_ITS ---
Author Organization Unknown Address [address] [place] [phone] Phone Care Team Providers Care Practice Manager Name Role Phone SYL Watters Attending Unavailable CHRISTIANO Marcial Primary Unavailable Results MR UPPER EXT ANY JOINT LT WO CONTRAST - Completed: 01/26/2022 11:50 LOINC: [facility] [place], [place] [address] PACS OFFICIAL GREETER REPORT Patient Name: CRUZ HESTER MRN: Sex: : Age: [id number] M 1955 66 Account: Accession: Admit: StayType: [id number] 01/26/2022 O/P Ordered: Order ID: Submitted: Ordering Provider: 01/26/2022 08:[id number] Completed: Technologist: Resulted: 01/26/2022 [...] em Smoking History Never smoker (Never Smoked) 785439914 SNOMED CT Sex Male Hospital Discharge Instructions [...] FDA Left shoulder rotator cuff repair 03/23 6816356 3 12/18/2025 Arthre x(R) AR-2326 BCC Tendon/lig ament bone anchor, bioabsorba ble 0100 8888 6702 7312 1725 1130 1014 6820 01 Active FDA Left shoulder rotator cuff repair 03/23 3676899 1 01/17/2025 Arthre x(R) AR-2600 SBS-4 Problems Problem Start Date Resolved Date Status Code Code System DEPRESSION 12/27/2021 resolved 86596321 SNOMED-C T HYPERTENSION 12/27/2021 resolved 01210587 SNOMED -CT Allergies and Adverse Reactions Allergy Substance Reaction Severity Start Date Concern Status Co de Code System No Known Allergies Active 720606492 SNO MED-CT Plan of Treatment MRI UPPER EXT JOINT W/O CONTRAST 2021 US ABDOMEN LIMITED 1 ORGAN 06/12/2021 Encounters Encounter Diagnosis Start Date Code Code Sys tem Complete rotator cuff tear o r rupture of left shoulder, not specified as traumatic 01/26/2022 SNOMED-CT Personal Care Team Section Performer Name Performer Role Active Date Inactive Da te
--- OUTSIDE RECORDS SUMMARY | 2024-03-28 10:01 | XMS_ITS ---
Author Organization Unknown Address [address] [place] [phone] Phone Care Team Providers Care Campaign Marketing Specialist Name Role Phone STREETERYASMIN Watters Attending Unavailable CHRISTIANO Marcial Primary Unavailable Social History Type Status Start Date End Date Code Code Syst em Smoking History Never smoker (Never Smoked) 056971162 SNOMED CT Sex Male Hospital Discharge Instructions [...] FDA Left shoulder rotator cuff repair 03/23 7912120 3 12/18/2025 Arthre x(R) AR-2326 BCC Tendon/lig ament bone anchor, bioabsorba ble 0100 8888 6702 7312 1725 1130 1014 6820 01 Active FDA Left shoulder rotator cuff repair 03/23 3047197 1 01/17/2025 Arthre x(R) AR-2600 SBS-4 Problems Problem Start Date Resolved Date Status Code Code System DEPRESSION 12/27/2021 resolved 47841868 SNOMED-C T HYPERTENSION 12/27/2021 resolved 55695844 SNOMED -CT Allergies and Adverse Reactions Allergy Substance Reaction Severity Start Date Concern Status Co de Code System No Known Allergies Active 128759455 SNO MED-CT Plan of Treatment MRI UPPER EXT JOINT W/O CONTRAST 2021 US ABDOMEN LIMITED 1 ORGAN 06/12/2021 Encounters Encounter Diagnosis Start Date Code Code Sys tem Injury of tendon of the rotator cuff of shoulder 01/09 926720262 SNOMED-CT Personal Care Team Section Performer Name Performer Role Active Date Inactive Da te
--- OUTSIDE RECORDS SUMMARY | 2024-03-28 10:01 | XMS_ITS ---
Author Organization Unknown Address [address] [place] [phone] Phone Care Team Providers Care Public Information Officer Name Role Phone RASHEEDA Angulo Attending Unavailable CHRISTIANO Marcial Primary Unavailable Social History Type Status Start Date End Date Code Code Syst em Smoking History Never smoker (Never Smoked) 994824117 SNOMED CT Sex Male Hospital Discharge Instructions [...] FDA Left shoulder rotator cuff repair 03/23 7306774 3 12/18/2025 Arthre x(R) AR-2326 BCC Tendon/lig ament bone anchor, bioabsorba ble 0100 8888 6702 7312 1725 1130 1014 6820 01 Active FDA Left shoulder rotator cuff repair 03/23 0501721 1 01/17/2025 Arthre x(R) AR-2600 SBS-4 Problems Problem Start Date Resolved Date Status Code Code System DEPRESSION 12/27/2021 resolved 13430686 SNOMED-C T HYPERTENSION 12/27/2021 resolved 38797246 SNOMED -CT Allergies and Adverse Reactions Allergy Substance Reaction Severity Start Date Concern Status Co de Code System No Known Allergies Active 153515732 SNO MED-CT Plan of Treatment MRI UPPER EXT JOINT W/O CONTRAST 2021 US ABDOMEN LIMITED 1 ORGAN 06/12/2021 Encounters Encounter Diagnosis Start Date Code Code Sys tem Full thickness rotator cuff tear 01/30/2022 81794120 0 SNOMED-CT Personal Care Team Section Performer Name Performer Role Active Date Inactive Da te
--- OUTSIDE RECORDS SUMMARY | 2024-03-28 10:01 | XMS_ITS ---
Author Organization Unknown Address [address] [place] [phone] Phone Care Team Providers Care Brine Room Laborer Name Role Phone STREETERYASMIN Watters Attending Unavailable CHRISTIANO Marcial Primary Unavailable Social History Type Status Start Date End Date Code Code Syst em Smoking History Never smoker (Never Smoked) 901116591 SNOMED CT Sex Male Hospital Discharge Instructions [...] FDA Left shoulder rotator cuff repair 03/23 7134610 3 12/18/2025 Arthre x(R) AR-2326 BCC Tendon/lig ament bone anchor, bioabsorba ble 0100 8888 6702 7312 1725 1130 1014 6820 01 Active FDA Left shoulder rotator cuff repair 03/23 5316916 1 01/17/2025 Arthre x(R) AR-2600 SBS-4 Problems Problem Start Date Resolved Date Status Code Code System DEPRESSION 12/27/2021 resolved 80101045 SNOMED-C T HYPERTENSION 12/27/2021 resolved 07536481 SNOMED -CT Allergies and Adverse Reactions Allergy Substance Reaction Severity Start Date Concern Status Co de Code System No Known Allergies Active 842423037 SNO MED-CT Plan of Treatment MRI UPPER [...]
--- OUTSIDE RECORDS SUMMARY | 2024-03-28 10:02 | XMS_ITS ---
Author Organization Unknown Address [address] [place] [phone] Phone Care Team Providers Care Turnstile Collector Name Role Phone RASHEEDA Angulo Attending Unavailable BLAIR LYNCH PATTERN HANGER Unavailable ABHIJEET Horne Physician Agricultural Equipment Test Engineer Unavailable CHRISTIANO Marcial Primary Unavailable Social History Type Status Start Date End Date Code Code Syst em Smoking History Never smoker (Never Smoked) 984518020 SNOMED CT Sex Male Vital Signs Vital Sign Value Unit [place] [facility] [place] [facility] Date/Time Recent/Initial? Code Code System Body Mass Index 23.87 kg/m2 03/09/2022 09:34 Initial 06587 -5 [facility] Systolic Blood Pressure 111 mm[Hg] 03/23/2022 17:58 Initial 8480- 6 LOINC Diastolic Blood Pressure 72 mm[Hg] 03/23/2022 17:58 Initial 8462- 4 INC Body Surface Area 1.91 m2 03/09/2022 09:34 Initial 3140- 1 LOINC Height 176.530 0 cm 69.50 in 03/09/2022 09:34 Initial 8302- 2 LOINC O2 Saturation 100 % 2022 17:58 Initial 63315 -5 LOINC Pulse 72.0 /min 03/23/2022 17:58 Initial 8867- 4 LOINC Respiration 16 /min 03/23/19 17:58 Initial 9279- 1 LOINC Temperature 36.1 Kaykay 97.0 F 03/23/19 17:58 Initial 8310- 5 LOINC Weight 74.39 kg 164.00 lbs 03/09/2022 09:34 Initial 29493 -7 INC Hospital Discharge Instructions Should you have any questions prior to discharge, please contact a member of your healthcare team. If you have left the hospital and have any questions, please contact your primary care physician. Reason For Referral No Data Found Procedures Procedure Name Date Status Code Code Syste m Repair, Ruptured Musculotend inous Cuff; Chronic 03/23/2022 completed 70614 CPT Injection Anesthetic Agent a nd/or Steroid; Brachial Plexus Including Imaging Guidance When Performed 03/23/2022 completed 90636 CPT Anesthesia, Nerves/Muscles/T endons/Fascia & Bursae, Shoulder/Axilla 03/23/2022 completed 85517 CPT Implants Implanted JACKY Status Assigning Authority Procedure Date Lot Number Serial Number Manufacturing Date Expiration Date Distinct ID Code Brand Name Model Number Tendon/lig ament bone anchor, bioabsorba ble 0100 8888 6731 1282 1726 1031 1015 0260 43 Active FDA Left shoulder rotator cuff repair 03/23 5196605 3 12/18/2025 Arthre x(R) AR-2326 BCC Tendon/lig ament bone anchor, bioabsorba ble 0100 8888 6702 7312 1725 1130 1014 6820 01 Active FDA Left shoulder rotator cuff repair 03/23 0399156 1 01/17/2025 Arthre x(R) AR-2600 SBS-4 Problems Problem Start Date Resolved Date Status Code Code System DEPRESSION 12/27/2021 resolved 21142970 SNOMED-C T HYPERTENSION 12/27/2021 resolved 52039009 SNOMED -CT Allergies and Adverse Reactions Allergy Substance Reaction Severity Start Date Concern Status Co de Code System No Known Allergies Active 610424263 SNO MED-CT Plan of Treatment MRI UPPER EXT JOINT W/O CONTRAST 2021 US ABDOMEN LIMITED 1 ORGAN 06/12/2021 Encounters Encounter Diagnosis Start Date Code Code Sys tem Complete rotator cuff tear o r rupture of left shoulder, not specified as traumatic 03/23/2022 SNOMED-CT Personal Care Team Section Performer Name Performer Role Active Date Inactive Da te
--- OUTSIDE RECORDS SUMMARY | 2024-03-28 10:02 | XMS_ITS ---
Author Organization Unknown Address [address] [place] [phone] Phone Care Team Providers Care Staff Forester Name Role Phone RASHEEDA Angulo Attending Unavailable Social History Type Status Start Date End Date Code Code Syst em Smoking History Never smoker (Never Smoked) 127007215 SNOMED CT Sex Male Hospital Discharge Instructions [...] FDA Left shoulder rotator cuff repair 03/23 9576917 3 12/18/2025 Arthre x(R) AR-2326 BCC Tendon/lig ament bone anchor, bioabsorba ble 0100 8888 6702 7312 1725 1130 1014 6820 01 Active FDA Left shoulder rotator cuff repair 03/23 4240423 1 01/17/2025 Arthre x(R) AR-2600 SBS-4 Problems Problem Start Date Resolved Date Status Code Code System DEPRESSION 12/27/2021 resolved 04292536 SNOMED-C T HYPERTENSION 12/27/2021 resolved 70682152 SNOMED -CT Allergies and Adverse Reactions Allergy Substance Reaction Severity Start Date Concern Status Co de Code System No Known Allergies Active 130474497 SNO MED-CT Plan of Treatment MRI UPPER EXT JOINT W/O CONTRAST 2021 US ABDOMEN LIMITED 1 ORGAN 06/12/2021 Encounters Encounter Diagnosis Start Date Code Code Sys tem Full thickness rotator cuff tear 03/23/202206075502 0 SNOMED-CT Personal Care Team Section Performer Name Performer Role Active Date Inactive Da te
--- OUTSIDE RECORDS SUMMARY | 2024-03-28 10:02 | XMS_ITS ---
Author Organization Unknown Address [address] [place] [phone] Phone Care Team Providers Care Floatlight Loading Supervisor Name Role Phone RASHEEDA Angulo Attending Unavailable CHRISTIANO Marcial Primary Unavailable Social History Type Status Start Date End Date Code Code Syst em Smoking History Never smoker (Never Smoked) 259329662 SNOMED CT Sex Male Hospital Discharge Instructions [...] FDA Left shoulder rotator cuff repair 03/23 [id number] 3 12/18/2025 Arthre x(R) AR-2326 BCC Tendon/lig ament bone anchor, bioabsorba ble 0100 8888 6702 7312 1725 1130 1014 6820 01 Active FDA Left shoulder rotator cuff repair 03/23 [id number] 1 01/17/2025 Arthre x(R) AR-2600 SBS-4 Problems Problem Start Date Resolved Date Status Code Code System DEPRESSION 12/27/2021 resolved [id number] SNOMED-C T HYPERTENSION 12/27/2021 resolved 24114115 SNOMED -CT Allergies and Adverse Reactions Allergy Substance Reaction Severity Start Date Concern Status Co de Code System No Known Allergies Active 685053944 SNO MED-CT Plan of Treatment MRI UPPER EXT JOINT W/O CONTRAST 2021 US ABDOMEN LIMITED 1 ORGAN 06/12/2021 Encounters Encounter Diagnosis Start Date Code Code Sys tem Follow-up orthopedic assessment 05/01/2022 [id number] SNOMED-CT Personal Care Team Section Performer Name Performer Role Active Date Inactive Da te
--- OUTSIDE RECORDS SUMMARY | 2024-03-28 10:02 | XMS_ITS ---
Author Organization Unknown Address [address] [place] [address] [phone] Phone Care Team Providers Care Computer Technology Trainer Name Role Phone RASHEEDA Angulo Attending Unavailable CHRISTIANO Marcial Primary Unavailable Social History Type Status Start Date End Date Code Code Syst em Smoking History Never smoker (Never Smoked) 032814132 SNOMED CT Sex Male Hospital Discharge Instructions [...] FDA Left shoulder rotator cuff repair 03/23 [id number] 3 12/18/2025 Arthre x(R) AR-2326 BCC Tendon/lig ament bone anchor, bioabsorba ble 0100 8888 6702 7312 1725 1130 1014 6820 01 Active FDA Left shoulder rotator cuff repair 03/23 [id number] 1 01/17/2025 Arthre x(R) AR-2600 SBS-4 Problems Problem Start Date Resolved Date Status Code Code System DEPRESSION 12/27/2021 resolved [id number] SNOMED-C T HYPERTENSION 12/27/2021 resolved 20652211 SNOMED -CT Allergies and Adverse Reactions Allergy Substance Reaction Severity Start Date Concern Status Co de Code System No Known Allergies Active 586217826 SNO MED-CT Plan of Treatment MRI UPPER EXT JOINT W/O CONTRAST 2021 US ABDOMEN LIMITED 1 ORGAN 06/12/2021 Encounters Encounter Diagnosis Start Date Code Code Sys tem Postprocedural state finding 07/31/2022 882242325 SNOMED-CT Personal Care Team Section Performer Name Performer Role Active Date Inactive Da te
--- OUTSIDE RECORDS SUMMARY | 2024-03-28 10:03 | XMS_ITS | Encounter Summary ---
Author Organization [facility] Address [facility] [place] [address] Care Team Providers Care Door Machine Operator Name Role Phone Jeff Pfeiffer MD Primary Care Provider [phone] Encounter Details Date Type Department Care Team (Late st Contact Info) Description 03/06/2024 9:25 AM EST Office Visit Radiation Oncology at [address] [phone] Sam James Jr., MD [facility] [place] [address] Malignant neoplasm of prostate Social History Tobacco Use Types Packs/Day Years Used Date Smoking Tobacco: Former Cigarettes Q uit: 1989 Smokeless Tobacco: Never Alcohol Use Standard Drinks/Week Comments Yes 15 (1 standard drink = 0.6 oz pu re alcohol) [facility] Utilities Answer Date Recorded In the past 12 months has th e [employer], gas, oil, or water [employer] threatened to shut off services in your [...] in this encounter Progress Notes * Sam Jaems Jr., MD - 03/06/2024 9:25 AM EST Images from the original note were not included. f [facility] Medicine Radiation Oncology Radiation Oncology On-treatment Visit [...] were placed in this encounter. National Cancer [place] (NCI) Comprehensive Cancer Center [employer] Commission on Cancer (ACS Brien) Accredited Cancer Program [employer] (ACR) Accredited Radiation Oncology Program documented in this encounter Plan of Treatment Upcoming Encounters Date Type Department Care Team (Late st Contact Info) Description 04/17/2024 9:30 AM EST TH Visit (TeleHealth) Radiation Oncology at [address] [phone] Leroy Berumen MD [address] [place] [address] DR RADIATION ONCOLOGY [place], [place] [id number] documented as of this encounter Visit Diagnoses Diagnosis Malignant neoplasm of prostate documented in this encounter Care Teams Door Machine Operator Relationship Specialty Start Date End Date Jeff Pfeiffer MD [address] [place] [address] PCP - General Family Medicine 03/12/23 documented as of this encounter
--- OUTSIDE RECORDS SUMMARY | 2024-03-28 10:03 | XMS_ITS | Encounter Summary ---
Author Organization [facility] Address [facility] [place] [address] Care Team Providers Care Canned Food Reconditioning Inspector Name Role Phone Jeff Pfeiffer MD Primary Care Provider [phone] Encounter Details Date Type Department Care Team (Latest Contact Info) Description 02/24/2024 Travel Social History Tobacco Use Types Packs/Day Years Used Date Smoking Tobacco: Former Cigarettes Q uit: 1989 Smokeless Tobacco: Never Alcohol Use Standard Drinks/Week Comments Yes 15 (1 standard drink = 0.6 oz pu re alcohol) [facility] Utilities Answer Date Recorded In [...] TH Visit (TeleHealth) Radiation Oncology at [address] [phone] Leroy Berumen MD [address] [place] [address] DR RADIATION ONCOLOGY [place], [place] [address] documented as of this encounter Visit Diagnoses Not on filedocumented in this encounter Care Teams Canned Food Reconditioning Inspector Relationship Specialty Start Date End Date Jeff Pfeiffer MD [address] [place] [address] PCP - General Family Medicine 03/12/23 documented as of this encounter
--- OUTSIDE RECORDS SUMMARY | 2024-03-28 10:03 | XMS_ITS ---
Author Organization [facility] [place] [address] Care Team Providers Care Chief Controller Tower Name Role Phone Jeff Pfeiffer MD Primary Care Provider [phone] Active Problems Problem Noted Date Diagnosed Date Malignant neoplasm of prostate 06/14/2023 Cancer Staging:Clinical:Stage IIB(cT1c, cN0, cM0, PSA: 8.6, Grade Group: 2) - Signed by Leroy Berumen MD on 06/14/2023 Current Oncology Plans Leuprolide (Lupron Depot) Injection ([facility], [facility], [facility], [facility], [facility]) Adult* Plan Start Date:03/10/2024 Plan Provider:Leroy Berumen MD Linked Problems Malignant neoplasm of prosta te Treatment Medications No medications scheduled. Leuprolide (Lupron Depot) Injection ([facility], [facility], [facility], [facility], [facility]) Adult* Plan Start Date:10/18/2023 Plan Provider:Leroy Berumen MD Linked Problems Malignant neoplasm of prosta te Treatment Medications No medications scheduled. Past Plans Therapy Plan 1 Plan Name Start Date Discontinue Date Treatment Medications Discontinue Reason Plan Provider Degarelix (Firmagon) Injection ([facility], [facility], [facility] HemOnc) New Patient Induction 07/12/2023 10/17/2023 No medications scheduled. Entered In Error Leroy Berumen MD Radiation Treatments * No radiation treatments are documented for this patient in [facility]. Treatments may have been administered in another system.
--- OUTSIDE RECORDS SUMMARY | 2024-03-28 10:03 | XMS_ITS | Encounter Summary ---
Author Organization [facility] Address [facility] [place] [address] Care Team Providers Care Fire Engineer Name Role Phone Jeff Pfeiffer MD Primary Care Provider [phone] Encounter Details Date Type Department Care Team (Latest Contact Info) Description 02/28/2024 Travel Social History Tobacco Use Types Packs/Day Years Used Date Smoking Tobacco: Former Cigarettes Q uit: 1989 Smokeless Tobacco: Never Alcohol Use Standard Drinks/Week Comments Yes 15 (1 standard drink = 0.6 oz pu re alcohol) [facility] Utilities Answer Date Recorded In the [...] TH Visit (TeleHealth) Radiation Oncology at [address] [phone] Leroy Berumen MD [address] [place] [address] DR RADIATION ONCOLOGY [place], [place] [address] documented as of this encounter Visit Diagnoses Not on filedocumented in this encounter Care Teams Fire Engineer Relationship Specialty Start Date End Date Jeff Pfeiffer MD [address] [place] [address] PCP - General Family Medicine 03/12/23 documented as of this encounter
--- OUTSIDE RECORDS SUMMARY | 2024-03-28 10:03 | XMS_ITS | Encounter Summary ---
Author Organization [facility] Address [facility] [place] [address] Care Team Providers Care Weigher Production Name Role Phone Jeff Pfeiffer MD Primary Care Provider [phone] Encounter Details Date Type Department Care Team (Late st Contact Info) Description 03/20/2024 9:25 AM EST Office Visit Radiation Oncology at [address] [phone] Leroy Berumen MD [address] [place] [address] [place] [address] Malignant neoplasm of prostate Social History Tobacco Use Types Packs/Day Years Used Date Smoking Tobacco: Former Cigarettes Q uit: 1989 Smokeless Tobacco: Never Alcohol Use Standard Drinks/Week Comments Yes 15 (1 standard drink = 0.6 oz pu re alcohol) [facility] Utilities Answer Date Recorded In the past 12 months has th e [employer], gas, oil, or water [employer] threatened to shut off services in your [...] the original note were not included. f [facility] Medicine Radiation Oncology Radiation Oncology On-treatment [...] were placed in this encounter. National Cancer [place] (NCI) Comprehensive Cancer Center [employer] Commission on Cancer (ACS Brien) Accredited Cancer Program [employer] (ACR) Accredited Radiation Oncology Program documented in this encounter Plan of Treatment Upcoming Encounters Date Type Department Care Team (Late st Contact Info) Description 04/17/2024 9:30 AM EST TH Visit (TeleHealth) Radiation Oncology at [address] [phone] Leroy Berumen MD [address] [place] [address] RADIATION ONCOLOGY [place], [place] [phone] Scheduled Orders Name Type Priority Associated Diagnoses Orde r Schedule PSA (Ultrasensitive) Lab Routine Malignant neoplasm of prostate Expected: 04/17/2024 (Approximate), Expires: 10/17/2024 Testosterone, total Lab Routine Malignant neoplasm of prostate Expected: 04/17/2024 (Approximate), Expires: 10/17/2024 documented as of this encounter Visit Diagnoses Diagnosis Malignant neoplasm of prostate documented in this encounter Care Teams Weigher Production Relationship Specialty Start Date End Date Jeff Pfeiffer MD [address] [place] [address] PCP - General Family Medicine 03/12/23 documented as of this encounter
--- OUTSIDE RECORDS SUMMARY | 2024-03-28 10:03 | XMS_ITS | Encounter Summary ---
Author Organization [facility] Address [facility] Janene hinson [place] [id number] Care Team Providers Care Private Chef Name Role Phone Jeff Pfeiffer MD Primary Care Provider [phone] Reason for Visit * Reason Onset Date Comments Results 03/26/2024 UA results Encounter Details Date Type Department Care Team (Late st Contact Info) Description 03/26/2024 Telephone Radiation Oncology at [address] [phone] Genia Patrick RN Results (UA results) Social History Tobacco Use Types Packs/Day Years [...] Telephone Encounter - Genia Patrick RN - 03/26/2024 1:30 PM EST RN relayed to Rolando that his UA results came back negative with no signs of an infection. Rolando was instructed to start taking the pyridium and if he did not notice some relief by tomorrow, he should call the clinic back. Rolando understood the plan and agreed to call if he had any further concerns. documented in this encounter Plan of Treatment Upcoming Encounters Date Type Department Care Team (Late st Contact Info) Description 04/17/2024 9:30 AM EST Visit (TeleHealth) Radiation Oncology at [address] [phone] Leroy Berumen MD [address] [place] [address] DR RADIATION ONCOLOGY [place], [place] [id number] documented as of this encounter Visit Diagnoses Not on filedocumented in this encounter Care Teams Private Chef Relationship Specialty Start Date End Date Jeff Pfeiffer MD [address] [place] [address] PCP - General Family Medicine 03/12/23 documented as of this encounter
--- OUTSIDE RECORDS SUMMARY | 2024-03-28 10:03 | XMS_ITS | Encounter Summary ---
Author Organization [facility] Address [facility] [place] [address] Care Team Providers Care Crusher Setter Name Role Phone Jeff Pfeiffer MD Primary Care Provider [phone] Encounter Details Date Type Department Care Team (Late st Contact Info) Description 03/13/2024 9:45 AM EST Office Visit Radiation Oncology at [address] [phone] Leroy Berumen MD [address] [place] [address] [place] [address] Malignant neoplasm of prostate Social History Tobacco Use Types Packs/Day Years Used Date Smoking Tobacco: Former Cigarettes Q uit: 1989 Smokeless Tobacco: Never Alcohol Use Standard Drinks/Week Comments Yes 15 (1 standard drink = 0.6 oz pu re alcohol) [facility] Utilities Answer Date Recorded In the past 12 months has th e [employer], gas, oil, or water [employer] threatened to shut off services in your [...] the original note were not included. f [facility] Medicine Radiation Oncology Radiation Oncology On-treatment [...] were placed in this encounter. National Cancer [place] (NCI) Comprehensive Cancer Center [employer] Commission on Cancer (ACS Brien) Accredited Cancer Program [employer] (ACR) Accredited Radiation Oncology Program documented in this encounter Plan of Treatment Upcoming Encounters Date Type Department Care Team (Late st Contact Info) Description 04/17/2024 9:30 AM EST TH Visit (TeleHealth) Radiation Oncology at [address] [phone] Leroy Berumen MD [address] [place] [address] RADIATION ONCOLOGY [place], [place] [address] documented as of this encounter Visit Diagnoses Diagnosis Malignant neoplasm of prostate documented in this encounter Care Teams Crusher Setter Relationship Specialty Start Date End Date Jeff Pfeiffer MD [address] [place] [address] PCP - General Family Medicine 03/12/23 documented as of this encounter
--- OUTSIDE RECORDS SUMMARY | 2024-03-28 10:03 | XMS_ITS | Encounter Summary ---
Author Organization Counts Include [facility] Address [facility] [place] [address] Care Team Providers Care Catcher Plug Name Role Phone Jeff Pfeiffer MD Primary Care Provider [phone] Encounter Details Date Type Department Care Team (Late st Contact Info) Description 03/24/2024 Notes Only Radiation Oncology at [address] [phone] Jacklyn Ignacio, RN Social History Tobacco Use Types Packs/Day Years Used Date Smoking Tobacco: Former Cigarettes Q uit: 1989 Smokeless Tobacco: Never Alcohol Use Standard Drinks/Week Comments Yes 15 (1 standard drink = 0.6 oz pu re alcohol) [facility] Utilities Answer Date Recorded [...] Progress Notes * Jacklyn Ignacio RN - 03/24/2024 6:09 PM EST Background: Met briefly with patient while here for final xrt in attempt to discuss symptoms and side effects. He is quite excited and celebratory to be completing radiation treatments today and responds to my inquiry as to how he is doing regarding side effects with that he is doing fine but does not respond to any specifics. Plan: Telephone call to patient to further discuss side GI/ effects/symptoms. documented in this encounter Plan of Treatment Upcoming Encounters Date Type Department Care Team (Late st Contact Info) Description 04/17/2024 9:30 AM EST TH Visit (TeleHealth) Radiation Oncology at [address] [phone] Leroy Berumen MD [address] [place] [address] DR RADIATION ONCOLOGY [place], [place] [phone] documented as of this encounter Visit Diagnoses Not on filedocumented in this encounter Care Teams Catcher Plug Relationship Specialty Start Date End Date Jeff Pfeiffer MD [address] [place] [address] PCP - General Family Medicine 03/12/23 documented as of this encounter
--- OUTSIDE RECORDS SUMMARY | 2024-03-28 10:03 | XMS_ITS | Encounter Summary ---
Author Organization [facility] Address [facility] [place] [address] Care Team Providers Care Diamond Mounter Name Role Phone Jeff Pfeiffer MD Primary Care Provider [phone] Reason for Visit * Reason Comments Chemotherapy Injections * Treatment/Therapy Plan Authorization (Routine) - Authorized Specialty Diagnoses / Procedures Referred By Neil keller Referred To Contact Hematology and Oncology Diagnoses Malignant neoplasm of prostate Leroy Berumen MD [address] [place] [address] [place] [address] St [facility] Infusion [address] [place] [phone] Referral ID Status Reason Start Date Expiration Date V isits Requested Visits Authorized [id number] Authorized 03/04/2024 03/04/2025 99 99 Encounter Details Date Type Department Care Team (Late st Contact Info) Description 03/10/2024 8:30 AM EST Infusion Hematology Oncology at [address] [phone] Malignant neoplasm of prostate Social History Tobacco Use Types Packs/Day Years Used Date Smoking Tobacco: Former Cigarettes Q uit: 1989 Smokeless Tobacco: Never Alcohol Use Standard Drinks/Week Comments Yes 15 (1 standard drink = 0.6 oz pu re alcohol) [facility] Utilities Answer Date Recorded [...] EST TH Visit (TeleHealth) Radiation Oncology at [address] [phone] Leroy Berumen MD [address] [place] [address] RADIATION ONCOLOGY [place], [place] [phone] documented as of this encounter Visit Diagnoses [...] Gluteal documented in this encounter Care Teams Diamond Mounter Relationship Specialty Start Date End Date Jeff Pfeiffer MD [address] [place] [address] PCP - General Family Medicine 03/12/23 documented as of this encounter
--- OUTSIDE RECORDS SUMMARY | 2024-03-28 10:03 | XMS_ITS | Encounter Summary ---
Author Organization [facility] Address [facility] [place] [address] Care Team Providers Care Senior Sales Representative Name Role Phone Jeff Pfeiffer MD Primary Care Provider [phone] Reason for Visit * Treatment/Therapy Plan Authorization (Routine) - Authorized Specialty Diagnoses / Procedures Referred By Neil keller Referred To Contact Hematology and Oncology Diagnoses Malignant neoplasm of prostate Leroy Berumen MD [address] [place] [address] [place] [address] [facility] Hem Onc Infusion [address] [place] [phone] Referral ID Status Reason Start Date Expiration Date V isits Requested Visits Authorized [id number] Authorized 07/12/2023 07/11/2024 99 101 Encounter Details Date Type Department Care Team (Late st Contact Info) Description 03/06/2024 10:00 AM EST Infusion Hematology Oncology at [address] [phone] Social History Tobacco Use Types [...] EST TH Visit (TeleHealth) Radiation Oncology at [address] [phone] Leroy Berumen MD [address] [place] [address] DR RADIATION ONCOLOGY [place], [place] [address] documented as of this encounter Visit Diagnoses Not on filedocumented in this encounter Care Teams Senior Sales Representative Relationship Specialty Start Date End Date Jeff Pfeiffer MD [address] [place] [address] PCP - General Family Medicine 03/12/23 documented as of this encounter
--- OUTSIDE RECORDS SUMMARY | 2024-03-28 10:03 | XMS_ITS | Clinical Summary ---
Author Organization [facility] Address [facility] [place] [address] Care Team Providers Care Casino Floor Supervisor Name Role Phone Jeff Pfeiffer MD Primary Care Provider [phone] Allergies No known active allergies Medications Medication [...] mouth 2 times daily as needed. Active phenazopyridine (Pyridium) 200 mg tabletIndications:Dy suria Take 1 tablet by mouth 3 times daily as needed for Pain. 21 tablet 2024 Active Active Problems Problem Noted Date Diagnosed Date Malignant neoplasm of prostate 06/14/2023 Cancer Staging:Clinical:Stage IIB(cT1c, cN0, cM0, PSA: 8.6, Grade Group: 2) - Signed by Leroy Berumen MD on 06/14/2023 Encounters Date Type Department Care Team Description 03/26/2024 Telephone Radiation Oncology at [address] [phone] Genia Patrick RN Results (UA results) 2024 Notes Only Radiation Oncology at [address] [place] [address] Leroy Berumen MD 2024 Telephone Radiation Oncology at [address] [place] [address] Genia Patrick RN Follow-up 03/24/2024 Notes Only Radiation Oncology at [address] [place] [address] Jacklyn Ignacio RN 03/23/2024 Travel 03/20/2024 9:25 AM EST Office Visit Radiation Oncology at [address] [place] [address] Leroy Berumen MD Malignant neoplasm of prostate 03/20/2024 Travel 03/19/2024 Nurse Triage Radiation Oncology at [address] [place] [address] Genia Patrick RN Diarrhea 03/18/2024 Travel 03/16/2024 Notes Only Radiation Oncology at [address] [place] [address] Jacklyn Ignacio RN 03/16/2024 Travel 03/13/2024 9:45 AM EST Office Visit Radiation Oncology at [address] [place] [address] Leroy Berumen MD Malignant neoplasm of prostate 03/13/2024 Travel 03/11/2024 Travel 03/10/2024 8:30 AM EST Infusion Hematology Oncology at [address] [place] [address] Malignant neoplasm of prostate 03/09/2024 Travel 03/06/2024 10:00 AM EST Infusion Hematology Oncology at [address] [place] [address] 03/06/2024 9:25 AM EST Office Visit Radiation Oncology at [address] [place] [address] Sam James Jr., MD Malignant neoplasm of prostate 03/05/2024 Travel 03/04/2024 Orders Only Radiation Oncology at [address] [place] [address] Leroy Berumen MD 03/03/2024 Travel 03/02/2024 Telephone Radiation Oncology at [address] [place] [address] Jacklyn Ignacio RN 03/02/2024 Travel 02/28/2024 9:25 AM EST Office Visit Radiation Oncology at [address] [address] Leroy Berumen MD Malignant neoplasm of prostate 02/28/2024 Travel 02/26/2024 Travel 02/24/2024 Travel 02/21/2024 10:10 AM EST Office Visit Radiation Oncology at [address] [place] [address] Jacob Cr MD Malignant neoplasm of prostate 02/20/2024 Travel 02/17/2024 Travel 02/14/2024 8:25 AM EST Office Visit Radiation Oncology at [address] [address] Leroy Berumen MD Malignant neoplasm of prostate 02/13/2024 Travel 02/07/2024 2:00 PM EST Infusion Hematology Oncology at [address] [address] Malignant neoplasm of prostate 02/07/2024 Travel 01/27/2024 10:00 AM EST Ancillary Appointment [place] [address] Leroy Berumen MD Malignant neoplasm of prostate 01/27/2024 7:50 AM EST - 01/27/2024 11:59 PM EST Hospital [place] [address] Leroy Berumen MD Malignant neoplasm of prostate Discharge Disposition: Home 01/27/2024 Travel 01/10/2024 8:30 AM EST Infusion Hematology Oncology at [address] [phone] Malignant neoplasm of prostate 01/10/2024 Travel 01/08/2024 9:00 AM EST Procedure visit Radiation Oncology at [address] [phone] Leroy Berumen MD Malignant neoplasm of prostate 01/08/2024 Travel 01/01/2024 3:00 PM EST Telephone Radiation Oncology at [address] [phone] Rad NurseSt Judge Pre Procedure Call 12/30/2023 Telephone Radiation Oncology at [address] [phone] Melba Soler from Last 3 Months Family [...] 0.6 oz pu re alcohol) [facility] Utilities Answer Date Recorded In the past 12 months has e electric, gas, oil, or water [employer] threatened to shut off services in your [...] TH Visit (TeleHealth) Radiation Oncology at [address] [place] [phone] Leroy Berumen MD [address] [place] [address] DR RADIATION ONCOLOGY [place], [place] [id number] Health Maintenance Due Date Last Done Comments CT Colonography 1955 Colonoscopy 1955 Colorectal Cancer Screening 1955 FIT DNA 1955 FIT 1955 Sigmoidoscopy (10 year) with FIT yearly 1955 Sigmoidoscopy 1955 Hepatitis C Screening 1973 Tetanus/Diphtheria/Pertussis Vaccines (1 - Tdap) 03/25 Pneumoccocal Vaccine: 50+ (1 of 1 - PCV) 2005 Zoster vaccine (1 of 2) 2005 Advance Directive 2010 AAA Screen 2020 Covid-19 Vaccine (1 - season) 2023 Influenza (Flu) vaccine (1 o f 1 - Influenza standard series) 10/20/2023 Procedures Procedure Name Priority Date/Time Associated Diagnosis Comments LAB SCAN 03/26/2024 12:00 AM EST LAB SCAN 03/26/2024 12:[address] RAD ONC BODY INTERP ONLY Routine 01/27/2024 11:05 AM EST Prostate cancer Malignant neoplasm of prostate MRI PELVIS WO (PROSTATE) Routine 01/27/2024 9:09 AM EST Malignant neoplasm of prostate from Last 3 Months Results * Scan Doc: Lab (03/26/2024 12:00 AM EST) Only the most recent of2 resultswithin the time period is included. Narrative 03/26/2024 12:00 AM EST Ordered by an unspecified provider. Scanning Provider MEDIA MGR SCAN EXT O RDR/RSLT * CT Rad Onc Body Interp Only (01/27/2024 11:05 AM EST) WORKSTATION ID [id number] RAD Anatomical Region Laterality Modality Abdomen Computed [...] have questions please contact the health healthcare network consultant that requested your imaging first. ? Narrative [...] who have questions please contactthe health healthcare network consultant that requested your imaging first. Leroy Berumen MD IMG OUTSIDE INTERPRE TATION ORDERABLES * MRI Pelvis wo (Prostate) (01/27/2024 9:09 AM EST) WORKSTATION ID [id number] RAD Anatomical Region Laterality Modality Pelvis Magnetic Resonan ce Impressions 01/27/2024 1:25 PM EST Limited MRI for radiation treatment planning. Thank you for letting us participate in the care of this patient. ??If you are a health care provider and have any questions regarding this report, please contact the number below. ??For patients who have questions please contact the health healthcare network consultant that requested your imaging first. ? Electronically signed by: Jann Pacheco MD, [facility] ([phone]), at 01/27/2024 1:25 PM Narrative 01/27/2024 1:25 [...] who have questions please contactthe health healthcare network consultant that requested your imaging first. Electronically signed by: Jann Pacheco MD, [facility]([phone]), at 01/27/2024 1:25 PM Leroy Berumen MD IMG MRI ORDERABLES from Last 3 Months Care Teams Casino Floor Supervisor Relationship Specialty Start Date End Date Jeff Pfeiffer MD [address] [place] [address] PCP - General Family Medicine 03/12/23
--- OUTSIDE RECORDS SUMMARY | 2024-03-28 10:03 | XMS_ITS | Encounter Summary ---
Author Organization [facility]ly [facility], [address] [facility] [place] [address] Care Team Providers Care Thermodynamics Professor Name Role Phone Jeff Pfeiffer MD Primary Care Provider [phone] Encounter Details Date Type Department Care Team [...] TH Visit (TeleHealth) Radiation Oncology at [address] [phone] Leroy Berumen MD [address] [place] [address] DR RADIATION ONCOLOGY [place], [place] [address] documented as of this encounter Visit Diagnoses Not on filedocumented in this encounter Care Teams Thermodynamics Professor Relationship Specialty Start Date End Date Jeff Pfeiffer MD [address] [place] [address] PCP - General Family Medicine 03/12/23 documented as of this encounter
--- OUTSIDE RECORDS SUMMARY | 2024-03-28 10:03 | XMS_ITS | Encounter Summary ---
Author Organization [facility] Address [facility] [place] [address] Care Team Providers Care Pulpwood Cutter Name Role Phone Jeff Pfeiffer MD Primary Care Provider [phone] Encounter Details Date Type Department Care Team (Latest Contact Info) Description 03/18/2024 Travel Social History Tobacco Use Types Packs/Day Years Used Date Smoking Tobacco: Former Cigarettes Q uit: 1989 Smokeless Tobacco: Never Alcohol Use Standard Drinks/Week Comments Yes 15 (1 standard drink = 0.6 oz pu re alcohol) [facility] Utilities Answer Date Recorded In the [...] TH Visit (TeleHealth) Radiation Oncology at [address] [phone] Leroy Berumen MD [address] [place] [address] DR RADIATION ONCOLOGY [place], [place] 12[address]39 documented as of this encounter Visit Diagnoses Not on filedocumented in this encounter Care Teams Pulpwood Cutter Relationship Specialty Start Date End Date Jeff Pfeiffer MD [address] [place] [address] PCP - General Family Medicine 03/12/23 documented as of this encounter
--- OUTSIDE RECORDS SUMMARY | 2024-03-28 10:03 | XMS_ITS | Encounter Summary ---
Author Organization [facility] Address [facility] [place] [address] Care Team Providers Care Fill Technician Name Role Phone Jeff Pfeiffer MD Primary Care Provider [phone] Encounter Details Date Type Department Care Team (Late st Contact Info) Description 03/02/2024 Telephone Radiation Oncology at [address] [address] Jacklyn Ignacio, RN Social History Tobacco Use Types Packs/Day Years Used Date Smoking Tobacco: Former Cigarettes Q uit: 1989 Smokeless Tobacco: Never Alcohol Use Standard Drinks/Week Comments Yes 15 (1 standard drink = 0.6 oz pu re alcohol) [facility] Utilities Answer Date Recorded In [...] TH Visit (TeleHealth) Radiation Oncology at [address] [phone] Leroy Berumen MD [address] [place] [address] DR RADIATION ONCOLOGY [place], [place] 3215[address] documented as of this encounter Visit Diagnoses Not on filedocumented in this encounter Care Teams Fill Technician Relationship Specialty Start Date End Date Jeff Pfeiffer MD [address] [place] [address] PCP - General Family Medicine 03/12/23 documented as of this encounter
--- OUTSIDE RECORDS SUMMARY | 2024-03-28 10:03 | XMS_ITS | Encounter Summary ---
Author Organization [facility] Address [facility] [place] [address] Care Team Providers Care Grounding Engineer Name Role Phone Jeff Pfeiffer MD Primary Care Provider [phone] Encounter Details Date Type Department Care Team (Late st Contact Info) Description 02/21/2024 10:10 AM EST Office Visit Radiation Oncology at [address] [phone] Jacob Cr MD [facility] [place] [address] Malignant neoplasm of prostate Social History Tobacco Use Types Packs/Day Years Used Date Smoking Tobacco: Former Cigarettes Q uit: 1989 Smokeless Tobacco: Never Alcohol Use Standard Drinks/Week Comments Yes 15 (1 standard drink = 0.6 oz pu re alcohol) [facility] Utilities Answer Date Recorded In the past 12 months has th e [employer], gas, oil, or water [employer] threatened to shut off services in your [...] the original note were not included. f [facility] Medicine Radiation Oncology Radiation Oncology [...] were placed in this encounter. National Cancer [place] (NCI) Comprehensive Cancer Center [employer] Commission on Cancer (ACS [place]rien) Accredited Cancer Program [employer] (ACR) Accredited Radiation Oncology Program documented in this encounter Plan of Treatment Upcoming Encounters Date Type Department Care Team (Late st Contact Info) Description 04/17/2024 9:30 AM EST TH Visit (TeleHealth) Radiation Oncology at [address] [phone] Leroy Berumen MD [address] [place] [address] DR RADIATION ONCOLOGY [place], [place] [phone] documented as of this encounter Visit Diagnoses Diagnosis Malignant neoplasm of prostate documented in this encounter Care Teams Grounding Engineer Relationship Specialty Start Date End Date Jeff Pfeiffer MD [address] [place] [address] PCP - General Family Medicine 03/12/23 documented as of this encounter
--- OUTSIDE RECORDS SUMMARY | 2024-03-28 10:03 | XMS_ITS | Encounter Summary ---
Author Organization [facility] Address [facility] [place] [address] Care Team Providers Care Ruffling Machine Operator Name Role Phone Jeff Pfeiffer MD Primary Care Provider [phone] Encounter Details Date Type Department Care Team (Latest Contact Info) Description 03/20/2024 Travel Social History Tobacco Use Types Packs/Day Years Used Date Smoking Tobacco: Former Cigarettes Q uit: 1989 Smokeless Tobacco: Never Alcohol Use Standard Drinks/Week Comments Yes 15 (1 standard drink = 0.6 oz pu re alcohol) [facility] Utilities Answer Date Recorded In the past [...] EST TH Visit (TeleHealth) Radiation Oncology at [address] [phone] Leroy Berumen MD [address] [place] [address] DR RADIATION ONCOLOGY [place], [place] [address] documented as of this encounter Visit Diagnoses Not on filedocumented in this encounter Care Teams Ruffling Machine Operator Relationship Specialty Start Date End Date Jeff Pfeiffer MD [address] [place] [address] PCP - General Family Medicine 03/12/23 documented as of this encounter
--- OUTSIDE RECORDS SUMMARY | 2024-03-28 10:03 | XMS_ITS | Encounter Summary ---
Author Organization [facility] Address [facility] [place] [address] Care Team Providers Care Jump Iron Machine Presser Name Role Phone Jeff Pfeiffer MD Primary Care Provider [phone] Encounter Details Date Type Department Care Team (Latest Contact Info) Description 03/02/2024 Travel Social History Tobacco Use Types Packs/Day Years Used Date Smoking Tobacco: Former Cigarettes Q uit: 1989 Smokeless Tobacco: Never Alcohol Use Standard Drinks/Week Comments Yes 15 (1 standard drink = 0.6 oz pu re alcohol) [facility] Utilities Answer Date Recorded In [...] EST TH Visit (TeleHealth) Radiation Oncology at [address] [phone] Leroy Berumen MD [address] [place] [address] DR RADIATION ONCOLOGY [place], [place] [address] documented as of this encounter Visit Diagnoses Not on filedocumented in this encounter Care Teams Jump Iron Machine Presser Relationship Specialty Start Date End Date Jeff Pfeiffer MD [address] [place] [address] PCP - General Family Medicine 03/12/23 documented as of this encounter
--- OUTSIDE RECORDS SUMMARY | 2024-03-28 10:03 | XMS_ITS ---
Author Organization Unknown Address [address] [place] [phone] Phone Care Team Providers Care Scheduling Clerk Name Role Phone RASHEEDA Angulo Attending Unavailable CHRISTIANO Marcial Primary Unavailable Social History Type Status Start Date End Date Code Code Syst em Smoking History Never smoker (Never Smoked) 014830763 SNOMED CT Sex Male Hospital Discharge Instructions [...] FDA Left shoulder rotator cuff repair 03/23 [id number] 3 12/18/2025 Arthre x(R) AR-2326 BCC Tendon/lig ament bone anchor, bioabsorba ble 0100 8888 6702 7312 1725 1130 1014 6820 01 Active FDA Left shoulder rotator cuff repair 03/23 [id number] 1 01/17/2025 Arthre x(R) AR-2600 SBS-4 Problems Problem Start Date Resolved Date Status Code Code System DEPRESSION 12/27/2021 resolved 59152493 SNOMED-C T HYPERTENSION 12/27/2021 resolved 20810666 SNOMED -CT Allergies and Adverse Reactions Allergy Substance Reaction Severity Start Date Concern Status Co de Code System No Known Allergies Active 427506187 SNO MED-CT Plan of Treatment MRI UPPER EXT JOINT W/O CONTRAST 2021 US ABDOMEN LIMITED 1 ORGAN 06/12/2021 Encounters Encounter Diagnosis Start Date Code Code Sys tem Postprocedural state finding 05/07/2023 [id number] SNOMED-CT Personal Care Team Section Performer Name Performer Role Active Date Inactive Da te
--- OUTSIDE RECORDS SUMMARY | 2024-03-28 10:03 | XMS_ITS | Encounter Summary ---
Author Organization [facility] Address [facility] [place] [address] Care Team Providers Care Mixer Operator Raw Salt Name Role Phone Jeff Pfeiffer MD Primary Care Provider [phone] Encounter Details Date Type Department Care Team [...] (TeleHealth) Radiation Oncology at [address] [phone] Leroy Berumen MD [address] [place] [address] DR RADIATION ONCOLOGY [place], [place] [address] documented as of this encounter Visit Diagnoses Not on filedocumented in this encounter Care Teams Mixer Operator Raw Salt Relationship Specialty Start Date End Date Jeff Pfeiffer MD [address] [place] [address] PCP - General Family Medicine 03/12/23 documented as of this encounter
--- OUTSIDE RECORDS SUMMARY | 2024-03-28 10:03 | XMS_ITS | Encounter Summary ---
Author Organization [facility] Address [facility] [place] [address] Care Team Providers Care Tactical Response Group Officer Name Role Phone Jeff Pfeiffer MD Primary Care Provider [phone] Encounter Details Date Type Department Care Team (Latest Contact Info) Description 03/09/2024 Travel Social History Tobacco Use Types Packs/Day Years Used Date Smoking Tobacco: Former Cigarettes Q uit: 1989 Smokeless Tobacco: Never Alcohol Use Standard Drinks/Week Comments Yes 15 (1 standard drink = 0.6 oz pu re alcohol) [facility] Utilities Answer Date Recorded In the [...] EST TH Visit (TeleHealth) Radiation Oncology at [address] [phone] Leroy Berumen MD [address] [place] [address] DR RADIATION ONCOLOGY [place], [place] [address] documented as of this encounter Visit Diagnoses Not on filedocumented in this encounter Care Teams Tactical Response Group Officer Relationship Specialty Start Date End Date Jeff Pfeiffer MD [address] [place] [address] PCP - General Family Medicine 03/12/23 documented as of this encounter
--- OUTSIDE RECORDS SUMMARY | 2024-03-28 10:03 | XMS_ITS | Encounter Summary ---
Author Organization [facility] Address [facility] [place] [address] Care Team Providers Care Crime Scene Technician Name Role Phone Jeff Pfeiffer MD Primary Care Provider [phone] Reason for Visit * Reason Onset Date Comments Diarrhea 03/19/2024 Encounter Details Date Type Department Care Team (Late st Contact Info) Description 03/19/2024 Nurse Triage Radiation Oncology at [address] [phone] Genia Patrick RN Diarrhea Social [...] Berumen is sending in a prescription to [email or web address] in [place], [place] for dexamethasone 4mg daily for one week. This order should hopefully be available to picker operator later today or early tomorrow. We will [...] EST TH Visit (TeleHealth) Radiation Oncology at [address] [phone] Leroy Berumen MD [address] [place] [address] DR RADIATION ONCOLOGY [place], [place] [address]33539 documented as of this encounter Visit Diagnoses Diagnosis Malignant neoplasm of prostate- Primary documented in this encounter Care Teams Crime Scene Technician Relationship Specialty Start Date End Date Jeff Pfeiffer MD [address] [place] [address] PCP - General Family Medicine 03/12/23 documented as of this encounter
--- OUTSIDE RECORDS SUMMARY | 2024-03-28 10:03 | XMS_ITS | Encounter Summary ---
Author Organization [facility] Address [facility] [place] [address] Care Team Providers Care Warehouse Processor Name Role Phone Jeff Pfeiffer MD Primary Care Provider [phone] Encounter Details Date Type Department Care Team (Late st Contact Info) Description 02/28/2024 9:25 AM EST Office Visit Radiation Oncology at [address] [phone] Leroy Berumen MD [address] [place] [address] [place] [address] Malignant neoplasm of prostate Social History Tobacco Use Types Packs/Day Years Used Date Smoking Tobacco: Former Cigarettes Q uit: 1989 Smokeless Tobacco: Never Alcohol Use Standard Drinks/Week Comments Yes 15 (1 standard drink = 0.6 oz pu re alcohol) [facility] Utilities Answer Date Recorded In the past 12 months has th e [employer], gas, oil, or water [employer] threatened to shut off services in your [...] place to sleep or slept in a mcfp (including now)? No 06/19/2023 Sex and Gender [...] the original note were not included. f [facility] Medicine [...] were placed in this encounter. National Cancer [place] (NCI) Comprehensive Cancer Center [employer] Commission on Cancer (ACS [place]rien) Accredited Cancer Program [employer] (ACR) Accredited Radiation Oncology Program documented in this encounter Plan of Treatment Upcoming Encounters Date Type Department Care Team (Late st Contact Info) Description 04/17/2024 9:30 AM EST TH Visit (TeleHealth) Radiation Oncology at [address] [phone] Leroy Breumen MD [address] [place] [address] DR RADIATION ONCOLOGY [place], [place] [address] documented as of this encounter Visit Diagnoses Diagnosis Malignant neoplasm of prostate documented in this encounter Care Teams Warehouse Processor Relationship Specialty Start Date End Date Jeff Pfeiffer MD [address] [place] [address] PCP - General Family Medicine 03/12/23 documented as of this encounter
--- OUTSIDE RECORDS SUMMARY | 2024-03-28 10:03 | XMS_ITS | Encounter Summary ---
Author Organization [facility] Address [facility] [place] [address] Care Team Providers Care Optometry Professor Name Role Phone Jeff Pfeiffer MD Primary Care Provider [phone] Encounter Details Date Type Department Care Team [...] EST TH Visit (TeleHealth) Radiation Oncology at [address] [phone] Leroy Berumen MD [address] [place] [address] DR RADIATION ONCOLOGY [place], [place] [address]409 documented as of this encounter Visit Diagnoses Not on filedocumented in this encounter Care Teams Optometry Professor Relationship Specialty Start Date End Date Jeff Pfeiffer MD [address] [place] [address] PCP - General Family Medicine 03/12/23 documented as of this encounter
--- OUTSIDE RECORDS SUMMARY | 2024-03-28 10:03 | XMS_ITS | Encounter Summary ---
Author Organization [facility] Address [facility] [place] [address] Care Team Providers Care Pressfitter Name Role Phone Jeff Pfeiffer MD Primary Care Provider [phone] Encounter Details Date Type Department Care Team (Latest Contact Info) Description 03/11/2024 Travel Social History Tobacco Use Types Packs/Day Years Used Date Smoking Tobacco: Former Cigarettes Q uit: 1989 Smokeless Tobacco: Never Alcohol Use Standard Drinks/Week Comments Yes 15 (1 standard drink = 0.6 oz pu re alcohol) [facility] Utilities Answer Date Recorded In [...] TH Visit (TeleHealth) Radiation Oncology at [address] [phone] Leroy Berumen MD [address] [place] [address] DR RADIATION ONCOLOGY [place], [place] [address] documented as of this encounter Visit Diagnoses Not on filedocumented in this encounter Care Teams Pressfitter Relationship Specialty Start Date End Date Jeff Pfeiffer MD [address] [place] [address] PCP - General Family Medicine 03/12/23 documented as of this encounter
--- OUTSIDE RECORDS SUMMARY | 2024-03-28 10:03 | XMS_ITS | Encounter Summary ---
Author Organization [facility] Address [facility] [place] [address] Care Team Providers Care Stump Shooter Name Role Phone Jfef Pfeiffer MD Primary Care Provider [phone] Encounter Details Date Type Department Care Team (Latest Contact Info) Description 02/20/2024 Travel Social History Tobacco Use Types Packs/Day Years Used Date Smoking Tobacco: Former Cigarettes Q uit: 1989 Smokeless Tobacco: Never Alcohol Use Standard Drinks/Week Comments Yes 15 (1 standard drink = 0.6 oz pu re alcohol) [facility] Utilities Answer Date Recorded In the [...] TH Visit (TeleHealth) Radiation Oncology at [address] [phone] Leroy Berumen MD [address] [place] [address] DR RADIATION ONCOLOGY [place], [place] [address] documented as of this encounter Visit Diagnoses Not on filedocumented in this encounter Care Teams Stump Shooter Relationship Specialty Start Date End Date Jeff Pfeiffer MD [address] [place] [address] PCP - General Family Medicine 03/12/23 documented as of this encounter
--- OUTSIDE RECORDS SUMMARY | 2024-03-28 10:03 | XMS_ITS | Encounter Summary ---
Author Organization [facility] Address [facility] [place] [address] Care Team Providers Care Mail Clerks Supervisor Name Role Phone Jeff Pfeiffer MD Primary Care Provider [phone] Encounter Details Date Type Department Care Team (Latest Contact Info) Description 03/23/2024 Travel Social History Tobacco Use Types Packs/Day Years Used Date Smoking Tobacco: Former Cigarettes Q uit: 1989 Smokeless Tobacco: Never Alcohol Use Standard Drinks/Week Comments Yes 15 (1 standard drink = 0.6 oz pu re alcohol) [facility] Utilities Answer Date Recorded In [...] TH Visit (TeleHealth) Radiation Oncology at [address] [phone] Leroy Berumen MD [address] [place] [address] DR RADIATION ONCOLOGY [place], [place] [address] documented as of this encounter Visit Diagnoses Not on filedocumented in this encounter Care Teams Mail Clerks Supervisor Relationship Specialty Start Date End Date Jeff Pfeiffer MD [address] [place] [address] PCP - General Family Medicine 03/12/23 documented as of this encounter
--- OUTSIDE RECORDS SUMMARY | 2024-03-28 10:03 | XMS_ITS | Encounter Summary ---
Author Organization [facility] Address [facility] [place] [address] Care Team Providers Care Staff Counselor Name Role Phone Jeff Pfeiffer MD Primary Care Provider [phone] Encounter Details Date Type Department Care Team [...] TH Visit (TeleHealth) Radiation Oncology at [address] [phone] Leroy Berumen MD [address] [place] [address] DR RADIATION ONCOLOGY [place], [place] [address] documented as of this encounter Visit Diagnoses Not on filedocumented in this encounter Care Teams Staff Counselor Relationship Specialty Start Date End Date Jeff Pfeiffer MD [address] [place] [address] PCP - General Family Medicine 03/12/23 documented as of this encounter
--- OUTSIDE RECORDS SUMMARY | 2024-03-28 10:03 | XMS_ITS | Encounter Summary ---
Author Organization [facility] Address [facility] [place] [address] Care Team Providers Care Real Estate Asset Manager Name Role Phone Jeff Pfeiffer MD Primary Care Provider [phone] Encounter Details Date Type Department Care Team (Late st Contact Info) Description 03/04/2024 Orders Only Radiation Oncology at [address] [phone] Leroy Berumen MD [address] [place] [address] [place] [address] Social History Tobacco Use Types Packs/Day Years Used Date Smoking Tobacco: Former Cigarettes Q uit: 1989 Smokeless Tobacco: Never Alcohol Use Standard Drinks/Week Comments Yes 15 (1 standard drink = 0.6 oz pu re alcohol) [facility] Utilities Answer Date Recorded In the past 12 months has th e electric, gas, oil, or water exozet threatened to shut off services in your [...] TH Visit (TeleHealth) Radiation Oncology at [address] [phone] Leroy Berumen MD [address] [place] [address] DR RADIATION ONCOLOGY [place], [place] [address] documented as of this encounter Visit Diagnoses Not on filedocumented in this encounter Care Teams Real Estate Asset Manager Relationship Specialty Start Date End Date Jeff Pfeiffer MD [address] [place] [address] PCP - General Family Medicine 03/12/23 documented as of this encounter
--- OUTSIDE RECORDS SUMMARY | 2024-03-28 10:03 | XMS_ITS | Encounter Summary ---
Author Organization [facility] Address [facility] [place] [address] Care Team Providers Care Dairy And Food Laboratory Assistant Name Role Phone Jeff Pfeiffer MD Primary Care Provider [phone] Reason for Visit * Reason Onset Date Comments Follow-up 2024 Encounter Details Date Type Department Care Team (Late st Contact Info) Description 2024 Telephone Radiation Oncology at [address] [phone] Genia Patrick, RN Follow-up Social History Tobacco Use Types Packs/Day Years [...] * Telephone Encounter - CelinaGenia RN - 2024 3:34 PM EST Caller: Rolando Brown Relationship: Self Clarified Two Patient Identifiers: [x] Diagnosis: Prostate Cancer Treatment: Completed 70Gy in 28fx to the Prostate/Pelvis on 03/24/24 Reason for Call: Follow up on /GI side effects Assessment: Rolando states that he continues to have very painful urination that he describes as burning and stinging. He states that it feels as if there is a build up of pressure which is very uncomfortable then it lets go and the burning sensation grows worse. His stream stops and starts multiple times when urinating. He has been taking the dexamethasone as instructed and has about 3 days remaining. He continues to take Tamsulosin 0.8mg at night. He does not notice any odor, blood, or discoloration with urine. Bowel movements have seemed to normalize and he continues to take a small amount of metamucil daily along with 7.5ml of liquid imodium daily. Recommendations/Plan: Consulted with Dr. Berumen who ordered a UA to be done at [facility]. Orders sent to the lab and Rolando was instructed to go up to the lab at his earliest convenience. A prescription for pyridium was sent to [facility] in [place], [place] as well with specific instructions to not start until after he has given the lab a urine sample. Rolando verbalized understanding of instructions and agreement with plan. Reminded Rolando to call back with any questions/concerns. Select Specific Decision Support Tool Used: Other: Spoke with Dr. Berumen Name of Guideline/Protocol Used: N/A documented in this encounter Plan of Treatment Upcoming Encounters Date Type Department Care Team (Late st Contact Info) Description 04/17/2024 9:30 AM EST TH Visit (TeleHealth) Radiation Oncology at [address] [address] Leroy Berumen MD [address] [place] [address] DR RADIATION ONCOLOGY [place], [place] [id number] Scheduled Orders Name Type Priority Associated Diagnoses Orde r Schedule Urinalysis with reflex Culture Lab Routine Dysuria Expected: 2024, Expires: 04/22/2024 documented as of this encounter Visit Diagnoses Diagnosis Dysuria- Primary documented in this encounter Care Teams Dairy And Food Laboratory Assistant Relationship Specialty Start Date End Date Jeff Pfeiffer MD [address] [place] [address] PCP - General Family Medicine 03/12/23 documented as of this encounter
--- OUTSIDE RECORDS SUMMARY | 2024-03-28 10:03 | XMS_ITS | Encounter Summary ---
Author Organization [facility] Address [facility] [place] [address] Care Team Providers Care Gas And Oil Checker Name Role Phone Jeff Pfeiffer MD Primary Care Provider [phone] Encounter Details Date Type Department Care Team (Latest Contact Info) Description 03/16/2024 Travel Social History Tobacco Use Types Packs/Day Years Used Date Smoking Tobacco: Former Cigarettes Q uit: 1989 Smokeless Tobacco: Never Alcohol Use Standard Drinks/Week Comments Yes 15 (1 standard drink = 0.6 oz pu re alcohol) [facility] Utilities Answer Date Recorded In [...] TH Visit (TeleHealth) Radiation Oncology at [address] [phone] Leroy Berumen MD [address] [place] [address] DR RADIATION ONCOLOGY [place], [place] [address] documented as of this encounter Visit Diagnoses Not on filedocumented in this encounter Care Teams Gas And Oil Checker Relationship Specialty Start Date End Date Jeff Pfeiffer MD [address] [place] [address] PCP - General Family Medicine 03/12/23 documented as of this encounter
--- OUTSIDE RECORDS SUMMARY | 2024-03-28 10:03 | XMS_ITS | Encounter Summary ---
Author Organization [facility] Address [facility] [place] [address] Care Team Providers Care Project Management Intern Name Role Phone Jeff Pfeiffer MD Primary Care Provider [phone] Encounter Details Date Type Department Care Team (Late st Contact Info) Description 03/16/2024 Notes Only Radiation Oncology at [address] [phone] Jacklyn Ignacio, RN Social History Tobacco Use Types Packs/Day Years Used Date Smoking Tobacco: Former Cigarettes Q uit: 1989 Smokeless Tobacco: Never Alcohol Use Standard Drinks/Week Comments Yes 15 (1 standard drink = 0.6 oz pu re alcohol) [facility] Utilities Answer Date Recorded In the [...] EST TH Visit (TeleHealth) Radiation Oncology at [address] [phone] Leroy Berumen MD [address] [place] [address] DR RADIATION ONCOLOGY [place], [place] [address] documented as of this encounter Visit Diagnoses Not on filedocumented in this encounter Care Teams Project Management Intern Relationship Specialty Start Date End Date Jeff Pfeiffer MD [facility] [address] [place], [place] [address] PCP - General Family Medicine 03/12/23 documented as of this encounter
--- OUTSIDE RECORDS SUMMARY | 2024-03-28 10:03 | XMS_ITS | Encounter Summary ---
Author Organization [facility] Address [facility] [place] [address] Care Team Providers Care Sap Manager Name Role Phone Jeff Pfeiffer MD Primary Care Provider [phone] Encounter Details Date Type Department Care Team (Latest Contact Info) Description 02/26/2024 Travel Social History Tobacco Use Types Packs/Day Years Used Date Smoking Tobacco: Former Cigarettes Q uit: 1989 Smokeless Tobacco: Never Alcohol Use Standard Drinks/Week Comments Yes 15 (1 standard drink = 0.6 oz pu re alcohol) [facility] Utilities Answer Date Recorded In the [...] EST TH Visit (TeleHealth) Radiation Oncology at [address] [phone] Leroy Berumen MD [address] [place] [address] DR RADIATION ONCOLOGY [place], [place] [address] documented as of this encounter Visit Diagnoses Not on filedocumented in this encounter Care Teams Sap Manager Relationship Specialty Start Date End Date Jeff Pfeiffer MD [address] [place] [address] PCP - General Family Medicine 03/12/23 documented as of this encounter
--- OUTSIDE RECORDS SUMMARY | 2024-03-28 10:03 | XMS_ITS | Encounter Summary ---
Author Organization [facility] Address [facility] [place] [address] Care Team Providers Care Lab Tech Name Role Phone Jeff Pfeiffer MD Primary Care Provider [phone] Encounter Details Date Type Department Care Team (Late st Contact Info) Description 2024 Notes Only Radiation Oncology at [address] [phone] Leroy Berumen MD [address] [place] [address] [place] [address] Social History Tobacco Use Types Packs/Day Years Used Date Smoking Tobacco: Former Cigarettes Q uit: 1989 Smokeless Tobacco: Never Alcohol Use Standard Drinks/Week Comments Yes 15 (1 standard drink = 0.6 oz pu re alcohol) [facility] Utilities Answer Date Recorded In the past 12 months has th e electric, gas, oil, or water [employer] threatened to shut off services in your [...] Progress Notes * Leroy Berumen MD - 2024 4:18 PM EST Images from the original note were not included. [facility] Medicine Radiation Oncology Radiation Therapy Completion Note Patient ID Patient name: Rolando Brown [...] fractions / 50.4 Gy in 28 fractions Start Date End Date Elapsed Days 02/13/24 03/24/24 40d Clinical Course Treatment tolerance: With regard to side effects noted during radiotherapy, the patient tolerated treatment extremely well with no significant acute (Grade 3 or above) toxicity or unplanned breaks. Treatment response: The patient's response to treatment was undetermined, as he was largely asymptomatic at the time ofpresentation. Future assessment will be determined via serial PSA. Follow up plan: Follow-up visit with Radiation Oncology in [facility] is scheduled for 04/17/24for routine post-procedural symptom check; he has received instructions to call this office or seek the help of the local emergency room if any further problems should arise prior to followup. LEROY BERUMEN MD 2024 [facility] (NCI) [facility] [employer] Commission on Cancer (ACS [employer]) Accredited Cancer Program [employer] (ACR) Accredited Radiation Oncology Program documented in this encounter Plan of Treatment Upcoming Encounters Date Type Department Care Team (Late st Contact Info) Description 04/17/2024 9:30 AM EST TH Visit (TeleHealth) Radiation Oncology at [address] [phone] Leroy Berumen MD [address] [place] [address] RADIATION ONCOLOGY [place], [place] [address]69 documented as of this encounter Visit Diagnoses Not on filedocumented in this encounter Care Teams Lab Tech Relationship Specialty Start Date End Date Jeff Pfeiffer MD [address] [place] [address] PCP - General Family Medicine 03/12/23 documented as of this encounter
--- OUTSIDE RECORDS SUMMARY | 2024-03-28 10:03 | XMS_ITS ---
Author Organization Unknown Address [address] [place] [phone] Phone Care Team Providers Care Digital Photographic Printer Name Role Phone RASHEEDA Angulo Attending Unavailable CHRISTIANO Marcial Primary Unavailable Social History Type Status Start Date End Date Code Code Syst em Smoking History Never smoker (Never Smoked) 396481481 SNOMED CT Sex Male Hospital Discharge Instructions [...] FDA Left shoulder rotator cuff repair 03/23 2342520 3 12/18/2025 Arthre x(R) AR-2326 BCC Tendon/lig ament bone anchor, bioabsorba ble 0100 8888 6702 7312 1725 1130 1014 6820 01 Active FDA Left shoulder rotator cuff repair 03/23 [id number] 1 01/17/2025 Arthre x(R) AR-2600 SBS-4 Problems Problem Start Date Resolved Date Status Code Code System DEPRESSION 12/27/2021 resolved 31601960 SNOMED-C T HYPERTENSION 12/27/2021 resolved 61214326 SNOMED -CT Allergies and Adverse Reactions Allergy Substance Reaction Severity Start Date Concern Status Co de Code System No Known Allergies Active 347026810 SNO MED-CT Plan of Treatment MRI UPPER EXT JOINT W/O CONTRAST 2021 US ABDOMEN LIMITED 1 ORGAN 06/12/2021 Encounters Encounter Diagnosis Start Date Code Code Sys tem 11/06/2022 [id number] SNOMED-CT Personal Care Team Section Performer Name Performer Role Active Date Inactive Da te
--- OUTSIDE RECORDS SUMMARY | 2024-03-28 10:04 | XMS_ITS | Encounter Summary ---
Author Organization [facility] Address [facility] [place] [address] Care Team Providers Care Skid Adzer Name Role Phone Jeff Pfeiffer MD Primary Care Provider [phone] Reason for Referral * Diagnostic Test (Routine) - Closed Specialty Diagnoses / Procedures Referred By Neil t Referred To Contact Radiology Diagnoses Malignant neoplasm of prostate Procedures MRI Pelvis wo (Prostate) MRI Pelvis wwo (Prostate) Teetee Han MD [facility] [place] [address] [facility] [place] [address] Referral ID Status Reason Start Date Expiration Date V isits Requested Visits Authorized [id number] Closed Specialty Service Requested 10/18/2023 04/17/2025 1 1 * Consultation (Routine) - Closed Specialty Diagnoses / Procedures Referred By Neil t Referred To Contact Radiation Oncology Diagnoses Malignant neoplasm of prostate Procedures Simulation for Radiation Therapy Planning Teetee Han MD [facility] [place] [address] [facility] [place] [address] Referral ID Status Reason Start Date Expiration Date V isits Requested Visits Authorized [id number] Closed Consult, Test & Treat 01/08/2024 05/03/2024 29 29 Encounter Details Date Type Department Care Team (Late st Contact Info) Description 10/18/2023 10:30 AM EDT Office Visit Radiation Oncology at [address] [place] [phone] Leroy Berumen MD [address] [place] [address] [place] [address] Malignant neoplasm of prostate Social History Tobacco Use Types Packs/Day Years Used Date Smoking Tobacco: Former Cigarettes Q uit: 1989 Smokeless Tobacco: Never Alcohol Use Standard Drinks/Week Comments Yes 15 (1 standard drink = 0.6 oz pu re alcohol) [facility] Utilities Answer Date Recorded In [...] are considered high risk. 2. Your highest [employer] score was 2 (this is how aggressive your prostate cancer looks under the microscope). [employer] scores for cancer range from 1-5, and 1 is considered lowest risk, while 5 is highest risk. 2. Radiation Treatment Options: There are a few ways radiation can be given here in [facility]. Either: 5.5 weeks of daily radiation (M-F) [...] of completion radiation. 6. SIDE EFFECTS - Jail: These can include be permanent damage of the radiated tissues, including the rectum/bowel, bladder, prostate and surrounding tissues. Potential serious injury is rare, but can include poor wound healing, bleeding, or destruction of healthy tissue that may require surgery to repair and may result in a colostomy (bag for defecation) or urostomy (bag for urination). There may be a slow, custodial decrease in your sexual function as well, [...] do not hesitate to call me at [phone] with any other questions or concerns you have. IfI am not here, one of our radiation oncology nurses can assist you or help you get in touch with me. A Radiation Oncology doctor is also manager zone after our normal hours and on weekends for urgent questions or concerns related to radiation treatments that can not wait until normal business hours. To reach the on-call doctor after-hours, just call and have the brushing machine operator page the Radiation Oncologist manager zone. And, as always, if you experience any [...] were not included. Radiation Oncology Followup Note [facility] PATIENT NAME: Rolando Brown DATE [...] visit as above Leroy Berumen MD, MS Estate Conservator Radiation Oncology documented in this encounter Plan of Treatment Upcoming Encounters Date Type Department Care Team (Late st Contact Info) Description 04/17/2024 9:30 AM EST TH Visit (TeleHealth) Radiation Oncology at [address] [phone] Leroy Berumen MD [address] [place] [address] RADIATION ONCOLOGY [place], [place] [id number] Scheduled Orders Name Type Priority Associated Diagnoses Orde r Schedule Simulation for Radiation Therapy Planning Radiation Oncology Routine Malignant neoplasm of prostate Expected: 10/18/2023, Expires: 04/18/2024 documented as of this encounter Results * MRI Pelvis wo (Prostate) (01/27/2024 9:09 AM EST) WORKSTATION ID [id number] RAD Anatomical Region Laterality Modality Pelvis Magnetic Resonan ce Impressions 01/27/2024 1:25 PM EST Limited MRI for radiation treatment planning. Thank you for letting us participate in the care of this patient. ??If you are a health care provider and have any questions regarding this report, please contact the number below. ??For patients who have questions please contact the health health care coordinator that requested your imaging first. ? Narrative [...] have questions please contactthe health health care coordinator that requested your imaging first. Leroy Berumen MD IMG MRI ORDERABLES documented in this encounter Visit Diagnoses Diagnosis Malignant neoplasm of prostate Malignant neoplasm of prostate documented in this encounter Care Teams Skid Adzer Relationship Specialty Start Date End Date Jeff Pfeiffer MD [address] [place] [address] PCP - General Family Medicine 03/12/23 documented as of this encounter
--- OUTSIDE RECORDS SUMMARY | 2024-03-28 10:04 | XMS_ITS | Encounter Summary ---
Author Organization [facility] Address [facility] [place] [address] Care Team Providers Care Skein Yarn Dyer Name Role Phone Jeff Pfeiffer MD Primary Care Provider [phone] Encounter Details Date Type Department Care Team [...] EST TH Visit (TeleHealth) Radiation Oncology at [address] [phone] Leroy Berumen MD [address] [place] [address] DR RADIATION ONCOLOGY [place], [place] [address] documented as of this encounter Visit Diagnoses Not on filedocumented in this encounter Care Teams Skein Yarn Dyer Relationship Specialty Start Date End Date Jeff Pfeiffer MD [address] [place] [address] PCP - General Family Medicine 03/12/23 documented as of this encounter
--- OUTSIDE RECORDS SUMMARY | 2024-03-28 10:04 | XMS_ITS | Encounter Summary ---
Author Organization [facility] Address [address] [place] [address] Care Team Providers Care C D Stripper Name Role Phone Jeff Pfeiffer MD Primary Care Provide r Encounter Details Date Type Department Care Team (Late st Contact Info) Description 01/24/2023 Lab Requisition [facility] - [facility] [address] [place] [address] Outr Resulting Lab, Provider Social History Tobacco [...] PSA 8.6(H) <=4.5 ng/mL 01/24/2023 20:10 EST [facility] Blood VENOUS BLOOD / Unknown 01/24/2023 9:20 EST 01/24/2023 18:26 EST Narrative [facility] - 01/24/2023 20:10 EST NOTE: Serum PSA concentration should not be interpreted as absolute evidence for the presence or absence of malignant disease. Assayed on Siemens ADVIA Centaur XPT using chemiluminescent technology.??Values obtained by using different assay methods cannot be used interchangeably. us Provider Outr Resulting Lab CHEMISTRY & BLOOD GA S ORDERABLES Final Result [facility] [address] [place] [address] documented in this encounter Visit Diagnoses Not on filedocumented in this encounter Care Teams C D Stripper Relationship Specialty Start Date End Date Jeff Pfeiffer MD [address] [place] [address] PCP - General 08/27/22 documented as of this encounter
--- OUTSIDE RECORDS SUMMARY | 2024-03-28 10:04 | XMS_ITS | Encounter Summary ---
Author Organization [facility] Address [facility] [place] [address] Care Team Providers Care Loan Servicing Specialist Name Role Phone Jeff Pfeiffer MD Primary Care Provider [phone] Reason for Visit * Reason Comments Chemotherapy Injections * Treatment/Therapy Plan Authorization (Routine) - Authorized Specialty Diagnoses / Procedures Referred By Neil keller Referred To Contact Hematology and Oncology Diagnoses Malignant neoplasm of prostate Leroy Berumen MD [address] [place] [address] [place] [address] Stj Hem Onc Infusion [address] [place] [phone] Referral ID Status Reason Start Date Expiration Date V isits Requested Visits Authorized [id number] Authorized 07/12/2023 07/11/2024 99 101 Encounter Details Date Type Department Care Team (Late st Contact Info) Description 10/18/2023 11:00 AM EDT Infusion Hematology Oncology at [address] [phone] Malignant neoplasm of prostate Social History Tobacco Use Types Packs/Day Years Used Date Smoking Tobacco: Former Cigarettes Q uit: 1989 Smokeless Tobacco: Never Alcohol Use Standard Drinks/Week Comments Yes 15 (1 standard drink = 0.6 oz pu re alcohol) [facility] Utilities Answer Date Recorded In the past 12 months has [employer], gas, oil, or water company threatened [...] EST TH Visit (TeleHealth) Radiation Oncology at [address] [phone] Leroy Berumen MD [address] [place] [address] [place] [address] documented as of this encounter Visit Diagnoses [...] Gluteal documented in this encounter Care Teams Loan Servicing Specialist Relationship Specialty Start Date End Date Jeff Pfeiffer MD [address] [place] [address] PCP - General Family Medicine 03/12/23 documented as of this encounter
--- OUTSIDE RECORDS SUMMARY | 2024-03-28 10:04 | XMS_ITS | Encounter Summary ---
Author Organization [facility] [place] [address] Care Team Providers Care Cooker Tender Name Role Phone Jeff Pfeiffer MD Primary Care Provider [phone] Encounter Details Date Type Department Care Team [...] TH Visit (TeleHealth) Radiation Oncology at [address] [phone] Leroy Berumen MD [address] [place] [address] DR RADIATION ONCOLOGY [place], [place] [phone] documented as of this encounter Visit Diagnoses Not on filedocumented in this encounter Care Teams Cooker Tender Relationship Specialty Start Date End Date Jeff Pfeiffer MD [address] [place], [place] [address] PCP - General Family Medicine 03/12/23 documented as of this encounter
--- OUTSIDE RECORDS SUMMARY | 2024-03-28 10:04 | XMS_ITS | Encounter Summary ---
Author Organization [facility] Address [facility] [place] [address] Care Team Providers Care Adjunct Physics Instructor Name Role Phone Jeff Pfeiffer MD Primary Care Provider [phone] Reason for Visit * Reason Comments Chemotherapy Lupron * Treatment/Therapy Plan Authorization (Routine) - Authorized Specialty Diagnoses / Procedures Referred By Neil keller Referred To Contact Hematology and Oncology Diagnoses Malignant neoplasm of prostate Leroy Berumen MD [address] [place] [address] [place] [address] St Hem Onc Infusion [address] [place] [phone] Referral ID Status Reason Start Date Expiration Date V isits Requested Visits Authorized [id number] Authorized 07/12/2023 07/11/2024 99 101 Encounter Details Date Type Department Care Team (Late st Contact Info) Description 01/10/2024 8:30 AM EST Infusion Hematology Oncology at [address] [phone] Malignant neoplasm of prostate Social History Tobacco Use Types Packs/Day Years Used Date Smoking Tobacco: Former Cigarettes Q uit: 1989 Smokeless Tobacco: Never Alcohol Use Standard Drinks/Week Comments Yes 15 (1 standard drink = 0.6 oz pu re alcohol) [facility] Utilities Answer Date Recorded In the [...] place to sleep or slept in a retirement (including now)? No 06/19/2023 Sex and Gender [...] EST TH Visit (TeleHealth) Radiation Oncology at [address] [phone] Leroy Berumen MD [address] [place] [address] [place] [address] documented as of this encounter [...] Gluteal documented in this encounter Care Teams Adjunct Physics Instructor Relationship Specialty Start Date End Date Jeff Pfeiffer MD [address] [place] [address] PCP - General Family Medicine 03/12/23 documented as of this encounter
--- OUTSIDE RECORDS SUMMARY | 2024-03-28 10:04 | XMS_ITS | Encounter Summary ---
Author Organization [facility] Address [facility] [place] [address] Care Team Providers Care Abrasive Grinder Name Role Phone Jeff Pfeiffer MD Primary Care Provider [phone] Reason for Visit * Consultation (Routine) - Closed Specialty Diagnoses / Procedures Referred By Neil keller Referred To Contact Radiation Oncology Diagnoses Malignant neoplasm of prostate Procedures Simulation for Radiation Therapy Planning Teetee Han MD [facility] DR [place] [address] [facility] [place] [address] Referral ID Status Reason Start Date Expiration Date V isits Requested Visits Authorized [id number] Closed Consult, Test & Treat 01/08/2024 05/03/2024 29 29 Encounter Details Date Type Department Care Team (Latest Contact Info) Description 01/27/2024 10:00 AM EST Ancillary Appointment [place] [address] Leroy Berumen MD [address] [place] [address] DR RADIATION ONCOLOGY [place], [place] [address] Malignant neoplasm of prostate Social History Tobacco Use Types Packs/Day Years Used Date Smoking Tobacco: Former Cigarettes Q uit: 1989 Smokeless Tobacco: Never Alcohol Use Standard Drinks/Week Comments Yes 15 (1 standard drink = 0.6 oz pu re alcohol) [facility] Utilities Answer Date Recorded In the past 12 months has [employer], gas, oil, or water [employer] threatened to shut off services in your [...] do to help manage the side effects. Crushing Foreman - They take the doctors radiation prescription [...] a well balanced diet is recommended. The bolt cutter and nurse will inform you of any [...] from the original note were not included. [facility] Radiation Oncology and [employer] Radiation Oncology [...] scheduled shortly. LEROY BERUMEN MD, MS [facility] Radiation Oncology [facility] [place] ([facility]) Comprehensive Cancer Center [employer] [employer] Commission on Cancer (ACS Brien) Accredited Cancer Program [employer] (ACR) Accredited Radiation Oncology Program documented in this encounter Plan of Treatment Upcoming Encounters Date Type Department Care Team (Late st Contact Info) Description 04/17/2024 9:30 AM EST TH Visit (TeleHealth) Radiation Oncology at [address] [phone] Leroy Berumen MD [address] [place] [address] RADIATION ONCOLOGY [place], [place] [address] documented as of this encounter Visit Diagnoses Diagnosis Malignant neoplasm of prostate documented in this encounter Care Teams Abrasive Grinder Relationship Specialty Start Date End Date Jeff Pfeiffer MD [address] [place] [address] PCP - General Family Medicine 03/12/23 documented as of this encounter
--- OUTSIDE RECORDS SUMMARY | 2024-03-28 10:04 | XMS_ITS | Encounter Summary ---
Author Organization [facility] Address [facility] [place] [address] Care Team Providers Care Industrial Relations Worker Name Role Phone Jeff Pfeiffer MD Primary Care Provider [phone] Reason for Visit * Reason Onset Date Comments Results 10/07/2023 Encounter Details Date Type Department Care Team (Late st Contact Info) Description 10/07/2023 Telephone Radiation Oncology at [address] [phone] Jacklyn Ignacio, RN Results Social History Tobacco Use Types Packs/Day Years Used Date Smoking Tobacco: Former Cigarettes Q uit: 1989 Smokeless Tobacco: Never Alcohol Use Standard Drinks/Week Comments Yes 15 (1 standard drink = 0.6 oz pu re alcohol) [facility] Utilities Answer Date Recorded In [...] call to let him know the results? [phone] documented in this encounter Plan of Treatment Upcoming Encounters Date Type Department Care Team (Late st Contact Info) Description 04/17/2024 9:30 AM EST TH Visit (TeleHealth) Radiation Oncology at [address] [phone] Leroy Berumen MD [address] [place] [address] DR RADIATION ONCOLOGY [place], [place] [id number] documented as of this encounter Visit Diagnoses Not on filedocumented in this encounter Care Teams Industrial Relations Worker Relationship Specialty Start Date End Date Jeff Pfeiffer MD [address] [place], [place] [address] PCP - General Family Medicine 03/12/23 documented as of this encounter
--- OUTSIDE RECORDS SUMMARY | 2024-03-28 10:04 | XMS_ITS | Encounter Summary ---
Author [place] [address] Care Team Providers Care Commercial Appraiser Name Role Phone Jeff Pfeiffer MD Primary Care Provider [phone] Reason for Referral * Diagnostic Test (Routine) - Closed Specialty Diagnoses / Procedures Referred By Contac t Referred To Contact Radiology Diagnoses Elevated PSA Procedures MRI Pelvis wwo (Prostate) Radha Khanna APRN [address] [place] [address] [place] [address] Referral ID Status Reason Start Date Expiration Date V isits Requested Visits Authorized [id number] Closed Specialty Service Requested 02/05/2023 08/06/2024 1 1 Reason for Visit * Diagnostic Test (Routine) - Closed Specialty Diagnoses / Procedures Referred By Contac t Referred To Contact Radiology Diagnoses Elevated PSA Procedures MRI Pelvis wwo (Prostate) Radha Khanna APRN [address] [place] [address] [place] [address] Referral ID Status Reason Start Date Expiration Date V isits Requested Visits Authorized [id number] Closed Specialty Service Requested 02/05/2023 08/06/2024 1 1 Encounter Details Date Type Department Care Team (Latest Contact Info) Description 03/14/2023 4:21 PM EST - 03/14/2023 11:59 PM EST Hospital [place] [address] Radha Khanna APRN [address] [place] [address] Elevated PSA Discharge Disposition: Home Social History [...] TH Visit (TeleHealth) Radiation Oncology at [address] [phone] Leroy Berumen MD [address] [place] [address] RADIATION ONCOLOGY [place], [place] [id number] documented as of this encounter Procedures Procedure [...] is highly likely to be present) References: Mehrhuey S1, Nilo JH1, Alberto S1, Dias C1, Barnes J1, Czarniecki M1, Gold S1, Browning G1, Raybeltran K1, Jacobo MJ1, Shoaib BJ1, Huey PA1, Abdullahi PL1, Jessica B1. ??A Grading System for the Assessment of Risk of Extraprostatic Extension of Prostate Cancer at Multiparametric MRI. Radiology. 2019 Apr;290(3):709-719. doi: 10.1148/radiol.0962066628. Epub 2018Mar 11. Thank you for letting us participate in the care of this patient. ??If you are a health care provider and have any questions regarding this report, please contact the number below. ??For patients who have questions please contact the health senior care assistant that requested your imaging first. ? Electronically signed by: Jann Pacheco MD, [facility] ([phone]), at 03/15/2023 12:47 PM Narrative 03/15/2023 12:47 [...] rusty present) References: Edilia S1, Nilo JH1, Remy S1, Dias C1, Barnes J1, Yaa M1,Gold S1, Browning G1, Rayn K1, Jacobo MJ1, Shoaib BJ1, Huey PA1, Abdullahi PL1, Jessica B1.A Grading System for the Assessment of Risk of Extraprostatic Extension of Prostate Cancer at Multiparametric MRI. Radiology. 2019Mar;290(3):709-719. doi: 10.1148/radiol.9795692040. Epub 2018Mar 11. Thank you for letting us participate in the care of this patient. If youare a health care provider and have any questions regarding this report,please contact the number below. For patients who have questions please contactthe health senior care assistant that requested your imaging first. Electronically signed by: Jann Pacheco MD, [facility]([phone]), at 03/15/2023 12:47 PM Radha Khanna APRN [facility] MRI ORDERABLES documented in this encounter Visit [...] mLs documented in this encounter Care Teams Commercial Appraiser Relationship Specialty Start Date End Date Jeff Pfeiffer MD [address] [place] [address] PCP - General Family Medicine 03/12/23 documented as of this encounter
--- OUTSIDE RECORDS SUMMARY | 2024-03-28 10:04 | XMS_ITS | Encounter Summary ---
Author Organization [facility] Address [facility] [place] [address] Care Team Providers Care Mineral Wool Insulation Supervisor Name Role Phone Jeff Pfeiffer MD Primary Care Provider [phone] Encounter Details Date Type Department Care Team (Late st Contact Info) Description 01/08/2024 9:00 AM EST Procedure visit Radiation Oncology at [address] [phone] Leroy Berumen MD [address] [place] [address] [place] [address] Malignant neoplasm of prostate Social History Tobacco Use Types Packs/Day Years Used Date Smoking Tobacco: Former Cigarettes Q uit: 1989 Smokeless Tobacco: Never Alcohol Use Standard Drinks/Week Comments Yes 15 (1 standard drink = 0.6 oz pu re alcohol) [facility] Utilities Answer Date Recorded In the past 12 months has th e [employer], gas, oil, or water [employer] threatened to shut off services in your [...] concerns. A MRI appointment will be at [address] Radiology on: [ Date: 01/27/24 ] [ Arrive at: 0810 ] Please remain NPO (nothing by mouth) 4 hours prior to your appointment. You may eat and drink after your MRI is complete. A CT Simulation appointment will be at [_] [facility] [X_] [facility] 2K on: [ Date: 01/27/24 ] [ Arrive at: 0930 ] Arrive for your appointment with a comfortably full bladder. How to reach us: [phone] After Hours/Weekends- Please ask for the Radiation Oncologist to be paged documented in this encounter Progress Notes * Genia Patrick RN - 01/08/2024 9:00 AM EST Radiation Oncology Nurse Note [facility] [place] [place] Radiation Oncology Procedure Nursing Note Procedure: Prostate fiducial by Dr Leroy Berumen Fusion Coil Lot Numbers: [ [id number] ] Time of patient arrival to clinic: 824 See flowsheet for all vital signs and medication list updated info. Pre procedure questions: [ Yes ] If Applicable: He confirms taking lorazepam 1mg po at (time): 0800 He comes to clinic accompanied by a moving van driver. [ Yes ] reviewed allergies. Specifically [...] were reviewed with him. He has the [facility] phone number and verbalized understanding to ask for the shipping lead person radiation oncologist if he needs to call after clinic hours. [ Yes ] If applicable: He was reminded to not drive home due to Lorazepam. Sampler Pickup: Friend Time of discharge: 1042 vital signs [...] to undergo MRI of the prostate at [facility]. documented in this encounter Plan of Treatment Upcoming Encounters Date Type Department Care Team (Late st Contact Info) Description 04/17/2024 9:30 AM EST TH Visit (TeleHealth) Radiation Oncology at [address] [phone] Leroy Berumen MD [address] [place] [address] RADIATION ONCOLOGY [place], [place] [address] documented as of this encounter Visit Diagnoses Diagnosis Malignant neoplasm of prostate documented in this encounter Care Teams Mineral Wool Insulation Supervisor Relationship Specialty Start Date End Date Jeff Pfeiffer MD [address] [place] [address] PCP - General Family Medicine 03/12/23 documented as of this encounter
--- OUTSIDE RECORDS SUMMARY | 2024-03-28 10:04 | XMS_ITS | Clinical Summary ---
Author Organization [facility] Address [address] [place] [address] Care Team Providers Care Environmental Protection Economist Name Role Phone Jeff Pfeiffer MD Primary [...] Encounters Date Type Department Care Team Description 2024 Lab Requisition [facility] Pathology & Laboratory Medicine - [facility] [address] [place] [address] Mich Martins MD Localized swelling, mass and lump, neck from Last 3 Months Social History Tobacco [...] 1955 Fall Risk Screening 2020 COVID-19 Vaccine ( season) 2023 RSV Immunization ( o r 60+ Years) (1 - 1-dose 75+ series) 2030 Procedures Procedure Name Priority Date/Time Associated Diagnosis Comments NON LABOR CONCILIATOR/FNA CYTOLOGY Today 03/24/2024 11:35 EST Localized swelling, mass and lump, neck from Last 3 Months Results * NON LABOR CONCILIATOR/FNA CYTOLOGY (03/24/2024 11:35 EST) Note to Patient The following pathology results have been interpreted by your pathologist and may be available to you before your health provider has had the opportunity to review them. Please allow time for your provider to receive these results and explore management options, if applicable. 03/26/2024 16:26 [facility] Final Diagnosis A. SALIVARY GLAND, RIGHT SUBMANDIBULAR MASS, FINE NEEDLE ASPIRATION CYTOLOGY: - Adequate for evaluation. - Neoplasm: Benign ([place] category NANCY). 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 03/26/2024 16:26 [facility] Diagnosis Comment Preparations are adequate for evaluation and the majority of the cellular material is on the air-dried Diff-Quik stained slide. 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 No atypia or malignancy is identified. The technical component of the specimen processing was performed at the [facility] Pathology Department, [address] [place] [address] (CLIA [id number]). The professional component of the specimen evaluation (slide review and issuing of the final diagnosis) was performed at [facility], [address] [place] [address] (CLIA License Number [id number]). 03/26/2024 16:26 [facility] Attestation By the signature below, the attending physician certifies that they have personally conducted a gross and/or microscopic examination of the described specimens and rendered or confirmed the above diagnosis. 03/26/2024 16:26 [facility] at 1626 Rapid Diagnosis A.RIGHT SUBMANDIBULAR MASS,ULTRASOUND GUIDED FINE NEEDLE ASPIRATION: Evaluation Episode 1: Pass 1: Adequate for evaluation. The above rapid on site evaluation was performed by pathologist Dr. Abhijit Forrester at [facility], [address] [place] [address]. 03/24/24; 1135 03/26/2024 16:26 [facility] Clinical History Right submandibular mass. R22/1 03/26/2024 16:26 [facility] Gross Description A. 1 fixed prepared slides, 2 Diff-Quik stained prepared slides, and 1 tube of Cytolyt processed by selective cellular enhancement technique were received 03/26/2024 16:26 [facility] Performing Lab [facility] 03/26/2024 16:26 [facility] Scanned Images 03/26/2024 16:26 [facility] Fine Needle Aspirate SUBMANDIBULAR SALIVARY GLAND STRUCTURE / Unknown 03/24/2024 11:35 EST 2024 6:41 EST us Michya Martins MD PATHOLOGY ORDERABLES Final Resul t [facility] [address] [place] [address] [facility] [address] [place] [address] from Last 3 Months Insurance [employer] MEDICARE [employer] [place] Care Teams Environmental Protection Economist Relationship Specialty Start Date End Date Jeff Pfeiffer MD [address] [address] [facility] - General 08/27/22
--- OUTSIDE RECORDS SUMMARY | 2024-03-28 10:04 | XMS_ITS | Encounter Summary ---
Author Organization [facility] Address [facility] [place] [address] Care Team Providers Care Travel Freight And Passenger Agent Name Role Phone Jeff Pfeiffer MD Primary Care Provider [phone] Encounter Details Date Type Department Care Team (Late st Contact Info) Description 02/14/2024 8:25 AM EST Office Visit Radiation Oncology at [address] [phone] Leroy Berumen MD [address] [place] [address] [place] [address] Malignant neoplasm of prostate Social History Tobacco Use Types Packs/Day Years Used Date Smoking Tobacco: Former Cigarettes Q uit: 1989 Smokeless Tobacco: Never Alcohol Use Standard Drinks/Week Comments Yes 15 (1 standard drink = 0.6 oz pu re alcohol) [facility] Utilities Answer Date Recorded In the past 12 months has th e [employer], gas, oil, or water [employer] threatened to shut off services in your [...] from the original note were not included. [facility] Medicine Radiation Oncology Radiation Oncology On-treatment [...] were placed in this encounter. National Cancer [place] (NCI) Comprehensive Cancer Center [employer] [employer] Commission on Cancer (ACS Brien) Accredited Cancer Program [employer] [employer] (ACR) Accredited Radiation Oncology Program documented in this encounter Plan of Treatment Upcoming Encounters Date Type Department Care Team (Late st Contact Info) Description 04/17/2024 9:30 AM EST TH Visit (TeleHealth) Radiation Oncology at [address] [phone] Leroy Berumen MD [address] [place] [address] RADIATION ONCOLOGY [place], [place] [address] documented as of this encounter Visit Diagnoses Diagnosis Malignant neoplasm of prostate documented in this encounter Care Teams Travel Freight And Passenger Agent Relationship Specialty Start Date End Date Jeff Pfeiffer MD [address] [place] [address] PCP - General Family Medicine 03/12/23 documented as of this encounter
--- OUTSIDE RECORDS SUMMARY | 2024-03-28 10:04 | XMS_ITS | Encounter Summary ---
Author Organization [facility] Address [facility] [place] [address] Care Team Providers Care Power Generation Engineer Name Role Phone Jeff Pfeiffer MD Primary Care Provider [phone] Encounter Details Date Type Department Care Team [...] TH Visit (TeleHealth) Radiation Oncology at [address] [phone] Leroy Berumen MD [address] [place] [address] DR RADIATION ONCOLOGY [place], [place] [address] documented as of this encounter Visit Diagnoses Not on filedocumented in this encounter Care Teams Power Generation Engineer Relationship Specialty Start Date End Date Jeff Pfeiffer MD [address] [place] [address] PCP - General Family Medicine 03/12/23 documented as of this encounter
--- OUTSIDE RECORDS SUMMARY | 2024-03-28 10:04 | XMS_ITS | Encounter Summary ---
Author Organization [facility] [place] [address] Care Team Providers Care Counter Pocket Trimmer Name Role Phone Jeff Pfeiffer MD Primary Care Provider [phone] Reason for Visit * Consultation (Routine) - Closed Specialty Diagnoses / Procedures Referred By Neil keller Referred To Contact Radiation Oncology Diagnoses Malignant neoplasm of prostate Derrick Blue MD [address] [place] [address] Leroy Berumen MD [address] [place] [address] [place] [address] Referral ID Status Reason Start Date Expiration Date V isits Requested Visits Authorized [id number] Closed Consult, Test & Treat 05/30/2023 05/29/2024 1 1 Encounter Details Date Type Department Care Team (Late st Contact Info) Description 06/19/2023 11:00 AM EDT Office Visit Radiation Oncology at [address] [phone] Leroy Berumen MD [address] [place] [address] [place] [address] Malignant neoplasm of prostate Social History Tobacco Use Types Packs/Day Years Used Date Smoking Tobacco: Former Cigarettes Q uit: 1989 Smokeless Tobacco: Never Tobacco Cessation:Counseling Given: Not Answered Alcohol Use Standard Drinks/Week Comments Yes 15 (1 standard drink = 0.6 oz pu re alcohol) [facility] Utilities Answer Date Recorded [...] are considered medium risk. 2. Your highest [employer] score was 2 (this is how aggressive your prostate cancer looks under the microscope). [employer] scores for cancer range from 1-5, and [...] or to the Active Surveillance Clinic at [facility], which is run by our [...] you to my colleague Dr. Tavares in [place], who specializes in the placement of radioactive [...] a prostate MRI which we do at [facility], that allows us to better [...] within 4-6 weeks of completion radiation. 6. Claims Administrator Complications: These are more worrisome and are [...] for urination). There may be a slow, [place] [facility] decrease in your sexual function as well, [...] do not hesitate to call me at [phone] with any other questions or concerns you have. IfI am not here, one of our radiation oncology nurses can assist you or help you get in touch with me. A Radiation Oncology doctor is also oracle scm consultant after our normal hours and on weekends for urgent questions or concerns related to radiation treatments that can not wait until normal business hours. To reach the on-call doctor after-hours, just call and have the kitchen operator page the Radiation Oncologist oracle scm consultant. 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 In the [place] [facility], I explained there is an approximately 2% [...] his case to Dr Gurvinder Ugarte at [facility] who routinely performs these [...] candidate for any currently open trials at [facility]. If his PSA was >10 [...] REPAIR Left Social History: Driving from - [facility] [place] Lives with - Alone. 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 Alcohol/Drug/Tobacco use - 2 glasses of wine [...] EDH social assessment information entered. Support Systems: [employer] transportation plan: [ X]private vehicle [ ] RCT needs Social Work referral [ ] Unknown at this time needs Social Work referral Barriers to treatment: None Referrals/Interventions: Will see HEREDITARY CANCER PROGRAM COORDINATOR per routine during SIM appointment. TEACHING: Learning [...] EST TH Visit (TeleHealth) Radiation Oncology at [address] [phone] Leroy Berumen MD [address] [place] [address] [place] [address] documented as of this encounter Visit Diagnoses Diagnosis Malignant neoplasm of prostate documented in this encounter Care Teams Counter Pocket Trimmer Relationship Specialty Start Date End Date Jeff Pfeiffer MD [address] [place] [address] PCP - General Family Medicine 03/12/23 documented as of this encounter
--- OUTSIDE RECORDS SUMMARY | 2024-03-28 10:04 | XMS_ITS | Encounter Summary ---
Author Organization [facility] Address [facility] [place] [id number] Care Team Providers Care Moid Middle School Teacher Name Role Phone Jeff Pfeiffer MD Primary Care Provider [phone] Encounter Details Date Type Department Care Team (Late st Contact Info) Description 12/30/2023 Telephone Radiation Oncology at [address] [phone] Melba Soler Social History Tobacco [...] be able to make his appointments in [place] for his MRI an Simulation. Rolando requested to have his appointments rescheduled for after he returns home on the 19 of January. documented in this encounter Plan of Treatment Upcoming Encounters Date Type Department Care Team (Late st Contact Info) Description 04/17/2024 9:30 AM EST TH Visit (TeleHealth) Radiation Oncology at [address] [phone] Leroy Berumen MD [address] [place] [address] DR RADIATION ONCOLOGY [place], [place] [address] documented as of this encounter Visit Diagnoses Not on filedocumented in this encounter Care Teams Moid Middle School Teacher Relationship Specialty Start Date End Date Jeff Pfeiffer MD [address] [place] [address] PCP - General Family Medicine 03/12/23 documented as of this encounter
--- OUTSIDE RECORDS SUMMARY | 2024-03-28 10:04 | XMS_ITS | Encounter Summary ---
Author Organization [facility] Address [facility] [place] [address] Care Team Providers Care Accountant Controller Name Role Phone Jeff Pfeiffer MD Primary Care Provider [phone] Encounter Details Date Type Department Care Team [...] TH Visit (TeleHealth) Radiation Oncology at [address] [phone] Leroy Berumen MD [address] [place] [address] DR RADIATION ONCOLOGY [place], [place] 403769 documented as of this encounter Visit Diagnoses Not on filedocumented in this encounter Care Teams Accountant Controller Relationship Specialty Start Date End Date Jeff Pfeiffer MD [address] [place] [address] PCP - General Family Medicine 03/12/23 documented as of this encounter
--- OUTSIDE RECORDS SUMMARY | 2024-03-28 10:04 | XMS_ITS | Encounter Summary ---
Author Organization [facility] Address [facility] [place] [address] Care Team Providers Care Environmental Services Director Name Role Phone Jeff Pfeiffer MD Primary Care Provider [phone] Reason for Visit * Reason Comments Injections Lupron * Treatment/Therapy Plan Authorization (Routine) - Authorized Specialty Diagnoses / Procedures Referred By Contdante t Referred To Contact Hematology and Oncology Diagnoses Malignant neoplasm of prostate Leroy Berumen MD [address] [place] [address] [place] [address] Stj Hem Onc Infusion [address] [place] [phone] Referral ID Status Reason Start Date Expiration Date V isits Requested Visits Authorized [id number] Authorized 07/12/2023 07/11/2024 99 101 Encounter Details Date Type Department Care Team (Late st Contact Info) Description 11/15/2023 8:30 AM EDT Infusion Hematology Oncology at [address] [phone] Malignant neoplasm of prostate Social History Tobacco Use Types Packs/Day Years Used Date Smoking Tobacco: Former Cigarettes Q uit: 1989 Smokeless Tobacco: Never Alcohol Use Standard Drinks/Week Comments Yes 15 (1 standard drink = 0.6 oz pu re alcohol) [facility] Utilities Answer Date Recorded In [...] TH Visit (TeleHealth) Radiation Oncology at [address] [phone] Leroy Berumen MD [address] [place] [address] [place] [address] documented as of this encounter [...] Gluteal documented in this encounter Care Teams Environmental Services Director Relationship Specialty Start Date End Date Jeff Pfeiffer MD [address] [place] [address] PCP - General Family Medicine 03/12/23 documented as of this encounter
--- OUTSIDE RECORDS SUMMARY | 2024-03-28 10:04 | XMS_ITS | Encounter Summary ---
Author Organization [facility] Address [facility] [place] [address] Care Team Providers Care Custom Dressmaker Name Role Phone Jeff Pfeiffer MD Primary Care Provider [phone] Encounter Details Date Type Department Care Team (Latest Contact Info) Description 01/08/2024 Travel Social History Tobacco Use Types Packs/Day Years Used Date Smoking Tobacco: Former Cigarettes Q uit: 1989 Smokeless Tobacco: Never Alcohol Use Standard Drinks/Week Comments Yes 15 (1 standard drink = 0.6 oz pu re alcohol) [facility] Utilities Answer Date Recorded In the past [...] EST TH Visit (TeleHealth) Radiation Oncology at [address] [phone] Leroy Berumen MD [address] [place] [address] DR RADIATION ONCOLOGY [place], [place] [address] documented as of this encounter Visit Diagnoses Not on filedocumented in this encounter Care Teams Custom Dressmaker Relationship Specialty Start Date End Date Jeff Pfeiffer MD [address] [place] [address] PCP - General Family Medicine 03/12/23 documented as of this encounter
--- OUTSIDE RECORDS SUMMARY | 2024-03-28 10:04 | XMS_ITS | Encounter Summary ---
Author Organization [facility] Address [facility] [place] [address] Care Team Providers Care Insights Manager Name Role Phone Jeff Pfeiffer MD Primary Care Provider [phone] Encounter Details Date Type Department Care Team (Latest Contact Info) Description 06/19/2023 Travel Social History Tobacco Use Types Packs/Day Years Used Date Smoking Tobacco: Former Cigarettes Q uit: 1989 Smokeless Tobacco: Never Alcohol Use Standard Drinks/Week Comments Yes 15 (1 standard drink = 0.6 oz pu re alcohol) [facility] Utilities Answer Date Recorded In the [...] TH Visit (TeleHealth) Radiation Oncology at [address] [phone] Leroy Berumen MD [address] [place] [address] DR RADIATION ONCOLOGY [place], [place] [address] documented as of this encounter Visit Diagnoses Not on filedocumented in this encounter Care Teams Insights Manager Relationship Specialty Start Date End Date Jeff Pfeiffer MD [address] [place] [address] PCP - General Family Medicine 03/12/23 documented as of this encounter
--- OUTSIDE RECORDS SUMMARY | 2024-03-28 10:04 | XMS_ITS | Encounter Summary ---
Author Organization [facility] Address [facility] [place] [address] Care Team Providers Care Advertising Executive Name Role Phone Jeff Pfeiffer MD Primary Care Provider [phone] Encounter Details Date Type Department Care Team (Late st Contact Info) Description 10/17/2023 Orders Only Radiation Oncology at [address] [phone] Leroy Berumen MD [address] [place] [address] [place] [address] Social History Tobacco Use Types Packs/Day Years Used Date Smoking Tobacco: Former Cigarettes Q uit: 1989 Smokeless Tobacco: Never Alcohol Use Standard Drinks/Week Comments Yes 15 (1 standard drink = 0.6 oz pu re alcohol) [facility] Utilities Answer Date Recorded In the past 12 months has th e electric, gas, oil, or water [employer] threatened to shut off services in [...] EST TH Visit (TeleHealth) Radiation Oncology at [address] [phone] Leroy Berumen MD [address] [place] [address] DR RADIATION ONCOLOGY [place], [place] [address] documented as of this encounter Visit Diagnoses Not on filedocumented in this encounter Care Teams Advertising Executive Relationship Specialty Start Date End Date Jeff Pfeiffer MD [address] [place] [address] PCP - General Family Medicine 03/12/23 documented as of this encounter
--- OUTSIDE RECORDS SUMMARY | 2024-03-28 10:04 | XMS_ITS | Encounter Summary ---
Author Organization [facility] Address [facility] [place] [address] Care Team Providers Care Inside Sales Agent Name Role Phone Jeff Pfeiffer MD Primary Care Provider [phone] Encounter Details Date Type Department Care Team (Latest Contact Info) Description 02/13/2024 Travel Social History Tobacco Use Types Packs/Day Years Used Date Smoking Tobacco: Former Cigarettes Q uit: 1989 Smokeless Tobacco: Never Alcohol Use Standard Drinks/Week Comments Yes 15 (1 standard drink = 0.6 oz pu re alcohol) [facility] Utilities Answer Date Recorded In the [...] EST TH Visit (TeleHealth) Radiation Oncology at [address] [phone] Leroy Berumen MD [address] [place] [address] DR RADIATION ONCOLOGY [place], [place] [address] documented as of this encounter Visit Diagnoses Not on filedocumented in this encounter Care Teams Inside Sales Agent Relationship Specialty Start Date End Date Jeff Pfeiffer MD [address] [place] [address] PCP - General Family Medicine 03/12/23 documented as of this encounter
--- OUTSIDE RECORDS SUMMARY | 2024-03-28 10:04 | XMS_ITS | Encounter Summary ---
Author Organization [facility] [place] [address] Care Team Providers Care Plastic Eye Technician Name Role Phone Jeff Pfeiffer MD Primary Care Provider [phone] Encounter Details Date Type Department Care Team (Late Contact Info) Description 05/30/2023 Telephone Radiation Oncology at [address] [phone] Melba Soler Social History Tobacco [...] Upcoming Encounters Date Type Department Care Team ([facility] Contact Info) Description 04/17/2024 9:30 AM EST TH Visit (TeleHealth) Radiation Oncology at [address] [phone] Leroy Berumen MD [address] [place] [address] [place] [address] documented as of this encounter Visit Diagnoses Not on filedocumented in this encounter Care Teams Plastic Eye Technician Relationship Specialty Start Date End Date Jeff Pfeiffer MD [address] [place] [address] PCP - General Family Medicine 03/12/23 documented as of this encounter
--- OUTSIDE RECORDS SUMMARY | 2024-03-28 10:04 | XMS_ITS | Encounter Summary ---
Author Organization [facility] Address [facility] [place] [address] Care Team Providers Care Tractor Mechanic Name Role Phone Jeff Pfeiffer MD Primary Care Provider [phone] Encounter Details Date Type Department Care Team (Latest Contact Info) Description 07/18/2023 Travel Social History Tobacco Use Types Packs/Day Years Used Date Smoking Tobacco: Former Cigarettes Q uit: 1989 Smokeless Tobacco: Never Alcohol Use Standard Drinks/Week Comments Yes 15 (1 standard drink = 0.6 oz pu re alcohol) [facility] Utilities Answer Date Recorded In the [...] EST TH Visit (TeleHealth) Radiation Oncology at [address] [phone] Leroy Berumen MD [address] [place] [address] DR RADIATION ONCOLOGY [place], [place] [address] documented as of this encounter Visit Diagnoses Not on filedocumented in this encounter Care Teams Tractor Mechanic Relationship Specialty Start Date End Date Jeff Pfeiffer MD [address] [place] [address] PCP - General Family Medicine 03/12/23 documented as of this encounter
--- OUTSIDE RECORDS SUMMARY | 2024-03-28 10:04 | XMS_ITS | Referral Summary ---
Author Organization [facility] Address [address] [place] [address] Care Team Providers Care Compensation And Hris Analyst Name Role Phone Jeff Pfeiffer MD Primary Care Provide r Encounters Date Type Department Care Team Description 2024 Lab Requisition [facility] Pathology & Laboratory Medicine - [address] [address] Mich Martins MD Localized swelling, mass and lump, neck from Last 3 Months Allergies No known active allergies Medications Coenzyme [...] Name Priority Date/Time Associated Diagnosis Comments NON PROFESSOR OF PUBLIC ADMINISTRATION/FNA CYTOLOGY Today 03/24/2024 11:35 EST Localized swelling, mass and lump, neck from Last 3 Months Results * NON PROFESSOR OF PUBLIC ADMINISTRATION/FNA CYTOLOGY (03/24/2024 11:35 EST) Note to Patient The following pathology results have been interpreted by your pathologist and may be available to you before your health provider has had the opportunity to review them. Please allow time for your provider to receive these results and explore management options, if applicable. 03/26/2024 16:26 [facility] Final Diagnosis A. SALIVARY GLAND, RIGHT SUBMANDIBULAR MASS, FINE NEEDLE ASPIRATION CYTOLOGY: - Adequate for evaluation. - Neoplasm: Benign (Strang category NANCY). 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 03/26/2024 16:26 [facility] Diagnosis Comment Preparations are adequate for evaluation and the majority of the cellular material is on the air-dried Diff-Quik stained slide. 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 No atypia or malignancy is identified. The technical component of the specimen processing was performed at the [facility] Pathology Department, [address] [place] [address] (CLIA [id number]). The professional component of the specimen evaluation (slide review and issuing of the final diagnosis) was performed at [facility], [address] [place] [address] (CLIA License Number [id number]). 03/26/2024 16:26 [facility] Attestation By the signature below, the attending physician certifies that they have personally conducted a gross and/or microscopic examination of the described specimens and rendered or confirmed the above diagnosis. 03/26/2024 16:26 [facility] at 1626 Rapid Diagnosis A.RIGHT SUBMANDIBULAR MASS,ULTRASOUND GUIDED FINE NEEDLE ASPIRATION: Evaluation Episode 1: Pass 1: Adequate for evaluation. The above rapid on site evaluation was performed by pathologist Dr. Abhijit Forrester at [facility], [address] [place] [address]. 03/24/24; 1135 03/26/2024 16:26 EST [facility] Clinical History Right submandibular mass. R22/1 03/26/2024 16:26 EST [facility] Gross Description A. 1 fixed prepared slides, 2 Diff-Quik stained prepared slides, and 1 tube of Cytolyt processed by selective cellular enhancement technique were received 03/26/2024 16:26 EST [facility] Performing Lab [facility] 03/26/2024 16:26 EST [facility] Scanned Images 03/26/2024 16:26 [facility] Fine Needle Aspirate SUBMANDIBULAR SALIVARY GLAND STRUCTURE / Unknown 03/24/2024 11:35 EST 2024 6:41 EST us Mich Martins MD PATHOLOGY ORDERABLES Final Resul t [facility] [address] [place], [place] [address] [facility] [address] [place] [address] from Last 3 Months Insurance [employer] MEDIC[employer] [place] Care Teams Compensation And Hris Analyst Relationship Specialty Start Date End Date Jeff Pfeiffer MD [address] [facility] [address] [place] [address] PCP - General 08/27/22
--- OUTSIDE RECORDS SUMMARY | 2024-03-28 10:04 | XMS_ITS | Encounter Summary ---
Author Organization [facility] Address [facility] [place] [address] Care Team Providers Care Personal Care Aid Name Role Phone Jeff Pfeiffer MD Primary Care Provider [phone] Reason for Visit * Reason Comments Chemotherapy * Treatment/Therapy Plan Authorization (Routine) - Authorized Specialty Diagnoses / Procedures Referred By Neil keller Referred To Contact Hematology and Oncology Diagnoses Malignant neoplasm of prostate Leroy Berumen MD [address] [place] [address] [place] [address] St Hem Onc Infusion [address] [place] [phone] Referral ID Status Reason Start Date Expiration Date V isits Requested Visits Authorized [id number] Authorized 07/12/2023 07/11/2024 99 101 Encounter Details Date Type Department Care Team (Late st Contact Info) Description 02/07/2024 2:00 PM EST Infusion Hematology Oncology at [address] [phone] Malignant neoplasm of prostate Social History Tobacco Use Types Packs/Day Years Used Date Smoking Tobacco: Former Cigarettes Q uit: 1989 Smokeless Tobacco: Never Alcohol Use Standard Drinks/Week Comments Yes 15 (1 standard drink = 0.6 oz pu re alcohol) [facility] Utilities Answer Date Recorded In the [...] TH Visit (TeleHealth) Radiation Oncology at [address] [phone] Leroy Berumen MD [address] [place] [address] [place] [address] documented as of this encounter [...] Gluteal documented in this encounter Care Teams Personal Care Aid Relationship Specialty Start Date End Date Jeff Pfeiffer MD [address] [place] [address] PCP - General Family Medicine 03/12/23 documented as of this encounter
--- OUTSIDE RECORDS SUMMARY | 2024-03-28 10:04 | XMS_ITS | Encounter Summary ---
Author Organization [facility] Address [facility] [place] [address] Care Team Providers Care Bartender Manager Name Role Phone Jeff Pfeiffer MD Primary Care Provider [phone] Encounter Details Date Type Department Care Team (Latest Contact Info) Description 01/27/2024 Travel Social History Tobacco Use Types Packs/Day Years Used Date Smoking Tobacco: Former Cigarettes Q uit: 1989 Smokeless Tobacco: Never Alcohol Use Standard Drinks/Week Comments Yes 15 (1 standard drink = 0.6 oz pu re alcohol) [facility] Utilities Answer Date Recorded In the [...] TH Visit (TeleHealth) Radiation Oncology at [address] [phone] Leroy Berumen MD [address] [place] [address] DR RADIATION ONCOLOGY [place], [place] [address] documented as of this encounter Visit Diagnoses Not on filedocumented in this encounter Care Teams Bartender Manager Relationship Specialty Start Date End Date Jeff Pfeifefr MD [address] [place] [address] PCP - General Family Medicine 03/12/23 documented as of this encounter
--- OUTSIDE RECORDS SUMMARY | 2024-03-28 10:04 | XMS_ITS | Encounter Summary ---
Author Organization [facility] Address [facility] [place] [address] Care Team Providers Care Drier And Grinder Tender Name Role Phone Jeff Pfeiffer MD Primary Care Provider [phone] Encounter Details Date Type Department Care Team [...] EST TH Visit (TeleHealth) Radiation Oncology at [address] [phone] Leroy Berumen MD [address] [place] [address] DR RADIATION ONCOLOGY [place], [place] [address] documented as of this encounter Visit Diagnoses Not on filedocumented in this encounter Care Teams Drier And Grinder Tender Relationship Specialty Start Date End Date Jeff Pfeiffer MD [address] [place] [address] PCP - General Family Medicine 03/12/23 documented as of this encounter
--- OUTSIDE RECORDS SUMMARY | 2024-03-28 10:04 | XMS_ITS | Encounter Summary ---
Author Organization [facility]ly [facility] Address [facility] [place] [address] Care Team Providers Care Electromechanical Technologist Name Role Phone Jeff Pfeiffer MD Primary Care Provider [phone] Encounter Details Date Type Department Care Team (Late st Contact Info) Description 10/29/2023 Telephone Radiation Oncology at [address] [phone] Jacklyn Ignacio, RN Social History Tobacco Use Types Packs/Day Years Used Date Smoking Tobacco: Former Cigarettes Q uit: 1989 Smokeless Tobacco: Never Alcohol Use Standard Drinks/Week Comments Yes 15 (1 standard drink = 0.6 oz pu re alcohol) [facility] Utilities Answer Date Recorded In the [...] EST TH Visit (TeleHealth) Radiation Oncology at [address] [phone] Leroy Berumen MD [address] [place] [address] DR RADIATION ONCOLOGY [place], [place] [address] documented as of this encounter Visit Diagnoses Not on filedocumented in this encounter Care Teams Electromechanical Technologist Relationship Specialty Start Date End Date Jeff Pfeiffer MD [address] [place], [place] [address] PCP - General Family Medicine 03/12/23 documented as of this encounter
--- OUTSIDE RECORDS SUMMARY | 2024-03-28 10:04 | XMS_ITS | Encounter Summary ---
Author Organization [facility] Address [facility] [place] [address] Care Team Providers Care Soda Dialyzer Name Role Phone Jeff Pfeiffer MD Primary Care Provider [phone] Encounter Details Date Type Department Care Team (Late st Contact Info) Description 10/28/2023 Telephone Radiation Oncology at [address] [phone] Jacklyn Ignacio, RN Social History Tobacco Use Types Packs/Day Years Used Date Smoking Tobacco: Former Cigarettes Q uit: 1989 Smokeless Tobacco: Never Alcohol Use Standard Drinks/Week Comments Yes 15 (1 standard drink = 0.6 oz pu re alcohol) [facility] Utilities Answer Date Recorded In the [...] infusion on 10/17 Best call back number [phone] documented in this encounter Plan of Treatment Upcoming Encounters Date Type Department Care Team (Late st Contact Info) Description 04/17/2024 9:30 AM EST TH Visit (TeleHealth) Radiation Oncology at [address] [phone] Leroy Berumen MD [address] [place] [address] DR RADIATION ONCOLOGY [place], [place] [phone] documented as of this encounter Visit Diagnoses Not on filedocumented in this encounter Care Teams Soda Dialyzer Relationship Specialty Start Date End Date Jeff Pfeiffer MD [address] [place] [address] PCP - General Family Medicine 03/12/23 documented as of this encounter
--- OUTSIDE RECORDS SUMMARY | 2024-03-28 10:04 | XMS_ITS | Encounter Summary ---
Author Organization [facility] Address [address] [place] [address] Care Team Providers Care Marketing Intelligence Analyst Name Role Phone Jeff Pfeiffer MD Primary Care Provide r Encounter Details Date Type Department Care Team (Late st Contact Info) Description 04/19/2023 Lab Requisition [facility] - [facility] [address] [place] [address] Derrick Blue MD [address] [place] [address] [place] [address] Elevated prostate specific antigen (PSA) [...] management options, if applicable. 04/25/2023 6:14 EST [facility] Final Diagnosis A. 1. [...] of 1/1 core. See comment. - Global Charleston Score: 3 + 3 = 6 (grade [...] 1.5% (0.2 mm) of 1/1 core. - [place] Score: 3 + 3 = 6 (grade group 1). - Core: 14.1 mm L. 12. PROSTATE, LEFT APEX MEDIAL, BIOPSY: - Several small foci of atypical glands. 04/25/2023 6:14 EST [facility] Diagnosis Comment Specimen E [...] performance characteristics have been determined by The and/or by the referring laboratory. The positive [...] at the intradepartmental consultation conference. 04/25/2023 6:14 [facility] Attestation There was significant resident/fellow involvement in the diagnostic evaluation of this case. By the signature below, the attending physician certifies that they have personally conducted a gross and/or microscopic examination of the described specimens and rendered or confirmed the above diagnosis. 04/25/2023 6:14 [facility] at 0614 Clinical History Elevated PSA; clinical diagnosis code: R97.20 04/25/2023 6:14 [facility] Gross Description A. Received in [...] L1. Jolanta Coe 04/20/2023 13:46 04/25/2023 6:14 [facility] Resident/Fell ow: Klever Peralta MD 04/25/2023 6:14 [facility] Performing Lab [facility] 04/25/2023 6:14 [facility] Scanned Images 04/25/2023 6:14 [facility] Tissue PROSTATIC STRUCTURE / Unknown [...] Blue MD PATHOLOGY ORDERABLES Luanne l Result [facility] [address] [place], [place] [address] documented in this encounter Visit Diagnoses Diagnosis Elevated prostate specific antigen (PSA) documented in this encounter Care Teams Marketing Intelligence Analyst Relationship Specialty Start Date End Date Jeff Pfeiffer MD [address] [facility] [address] [place] [address] PCP - General 08/27/22 documented as of this encounter
--- OUTSIDE RECORDS SUMMARY | 2024-03-28 10:04 | XMS_ITS | Encounter Summary ---
Author Organization Formerly [facility] Address [facility] [place] [address] Care Team Providers Care Wine And Spirits Clerk Name Role Phone eJff Pfeiffer MD Primary Care Provider [phone] Encounter Details Date Type Department Care Team (Latest Contact Info) Description 02/07/2024 Travel Social History Tobacco Use Types Packs/Day Years Used Date Smoking Tobacco: Former Cigarettes Q uit: 1989 Smokeless Tobacco: Never Alcohol Use Standard Drinks/Week Comments Yes 15 (1 standard drink = 0.6 oz pu re alcohol) [facility] Utilities Answer Date Recorded In the [...] EST TH Visit (TeleHealth) Radiation Oncology at [address] [phone] Leroy Berumen MD [address] [place] [address] DR RADIATION ONCOLOGY [place], [place] [address] documented as of this encounter Visit Diagnoses Not on filedocumented in this encounter Care Teams Wine And Spirits Clerk Relationship Specialty Start Date End Date Jeff Pfeiffer MD [address] [place] [address] PCP - General Family Medicine 03/12/23 documented as of this encounter
--- OUTSIDE RECORDS SUMMARY | 2024-03-28 10:04 | XMS_ITS | Encounter Summary ---
Author Organization [facility] Address [address] [place] [address] Care Team Providers Care Sales And Marketing Intern Name Role Phone Jeff Pfeiffer MD Primary Care Provide r Encounter Details Date Type Department Care Team (Late st Contact Info) Description 06/27/2023 Lab Requisition [facility] Pathology & Laboratory Medicine - [facility] [address] [place] [address] Leroy Berumen MD [address] [place] [address] [place] [address] Encounter for other general examination [...] of Dr. Leroy Berumen, a block from [id number] (F1) was sent to [facility] for testing. For Decipher results, please see scanned report in EPIC. 07/08/2023 11:07 EDT [facility] Original (F1) 07/08/2023 11:07 EDT [facility] Original Case Specimen Source Right apex prostate 07/08/2023 11:07 [facility] Original Case Date of Service 04/19/2023 07/08/2023 11:07 [facility] Attestation By the signature below, the attending physician certifies that they have 1) personally conducted a gross and/or microscopic examination of the described specimen(s), and/or personally interpreted the results of laboratory testing of the described specimen(s), and 2) personally rendered or confirmed the above diagnosis. 07/08/2023 11:07 [facility] at 1107 Surgical Pathology PROSTATIC [...] Berumen MD PATHOLOGY ORDERABLES Final Resu lt [facility] [address] [place] [address] documented in this encounter Visit Diagnoses Diagnosis Encounter for other general examination documented in this encounter Care Teams Sales And Marketing Intern Relationship Specialty Start Date End Date Jeff Pfeiffer MD [address] [place] [address] [address] [place], [place] [phone] PCP - General 08/27/22 documented as of this encounter
--- OUTSIDE RECORDS SUMMARY | 2024-03-28 10:04 | XMS_ITS | Continuity of Care Document ---
Author Organization [facility] Address [address] [place] [address] Care Team Providers Care Pinsetter Mechanic Helper Name Role Phone ESCALERAVIVI DE LA CRUZ Urologist LISA AMOS Radiation Oncologist Assessment No assessment recorded. Plan of Treatment Reminders Order Date Submit Date Provider Last Modified By Organization Details Last Modified Time Details Appointments Nurse Visit 10 2024 07:40A M Armour Nursing Staff Not available Not available Not available Medicare Wellness 40 (Subs) 2024 09:30A M JORGE ALVARADO Not available Not available Not available Lab CBC w/ auto diff - to be drawn at [facility] [address] [facility] (Registration ), [address] [place] [address] [place], [address], 03/26/2024 07:16:18 Referral None recorded. Procedures None recorded. Surgeries None recorded. Imaging US, neck, soft tissue - R submandib ular mass, non-tende r. active prostate ca. pls eval and treat. [address] ([facility] [address] [place] [address] [place], [address], 03/26/2024 07:02:04 XR, chest, 2 view - chronic cough x 8-9 mos, hx of prostate cancer [address] Xray, [address], [place], [address], 03/26/2024 07:02:09 Medication Orders None recorded. Patient TargetsNo targets recorded. Patient Instructions Encounter Date Encounter Id Patient Instructions Last Modified By Organization Details Last Modified Time 02/26/2024 [id number] It was nice to s froilan hansen, Rolando! Here is a summary of the [...] neck. These will also be scheduled in [place]. Call [facility] at to schedule. - Follow-up: - [...] Flag Note LastModifiedBy Organization Detail LastModifiedTime 02/26/1902/27/2024 XR, chest , 2 view Patien t Name: Emily Brown Unit #: [id number] Loc: DI Orderi ng Provid er: Westley Minor Accoun t #: [id number] Status : REG CLI Primar [...] at the addres s above. Thank- you. [email or web address] Rell beltran [facility] [address] [place], [address] 03/26/2024 07:02:09 02/26/19 25 02/27/2024 ultra sound imagi ng repor t [place] t Name: Emily Brown Unit #: [id number] Loc: DI Orderi ng Provid er: Westley Minor Accoun t #: [id number] Status : REG CLI Primar [...] 0.9 x 1.0 cm. There is mild internal communications specialist al blood flow noted. These corres pond [...] the addres s above. Thank- you. magan [facility] [address], [place], [address] 03/17/2024 07:05:20 03/05/19 25 03/05/2024 CT imagi ng rickey keller Name: Emily Brown Unit #: [id number] Loc: DI Orderi ng Provid er: Westley Minor Joey keller #: [id number] Status : REG CLI Primar [...] facili ty are submit cris to the [facility] Data Regist ry (NRDR) Dose [...] this report in error, please notify us immjose anthony at and return the origin al report to us at the addres s above. Thank- you. [email or web address] [address], [place], [address] 03/23/2024 15:24:00 03/24/19 25 03/24/2024 US, neck, soft tissu e Patien t Name: Emily Brown Unit #: [id number] Loc: DI Orderi ng Provid er: Mich Martins M.D. Joey keller #: [id number] Status : REG CLI Primar y Care Provid er: Westley Minor Date of Exam: 06/12 Sex: M Admiss ion Date: : 1955 Age: 68 Exam(s ) US NEEDLE LOCAL OTHER WO RAD EXAM: Right subman dibula r mass,u ltraso und guided bx,r22 .1 COMPAR ESE: No exams were availa ble for compar ese TECHNI QUE: Ultras ound perfor med using standa rd protoc ol. FINDIN GS: Sonogr aphy was provid ed for during can during the perfor elzbieta of a right subman dibula r mass biopsy . Please refer to the proced ure report for comple te detail s. DATA REPOSI TORY: Ordere d By: Mich Martins M.D. CC: ------ ------ ------ ------ ------ ------ ------ ------ ------ ------ ------ ------ - Dictat ed By: Chris Dias M.D. 1407 1407 Transc ribed By: Chris Dias 1407 This is privil eged, confid ential inform ation intend ed only for the provid er named. Any use or distri bution by any person other than this provid er is strict ly prohib ited. If you receiv e this report in error, please notify us immedi ately at and return the origin al report to us at the addres s above. Thank- you. [email or web address] [address] [place], [address] 03/26/2024 07:02:04 Result Notes None recorded. Problems Name Problem SNOMED Code Status Onset Date Resolution Date Notes Provider Name and Address Organization Details Recorded Time Herpesvi bebeto infectio n 64004458 Completed 202101/13/2024 Problem Code: B00.9; Problem Code Type: ICD-10; MD [address], [place], [address] , [facility] 4 16:59:12 Oral herpes simplex infectio n 592387854 Active [address], [facility] [address] , [facility] 4 16:59:07 History of polyp of colon 975924029 Completed 201504/25/2023 Problem Code: Z86.010; Problem Code Type: ICD-10; MD Amy [address], [place], [address] , [facility] 4 10:41:52 History of malignan t melanoma of the skin 29594632010 8 Active 201704/04/19 18 - Comments only - Jorge Alvarado M.D. - Has 6 mo f/u schedule d for [place] in [place]; will refer to dermatol ogy at [facility] to hot die picker on biannual appts in Oct. Problem Code: Z85.820; Problem Code Type: ICD-10; MD Amy [address], [place], [address] , [facility] 4 10:41:25 Adult health examinat ion Active 201705/29/19 23 - Comments only - Jorge Alvarado M.D. - Medicare wellness exam. HRA reviewed . Personal daiana preventi on plan competed and rev'd with patient. patient was given copy of PPP at [facility] on of visit. Problem Code: Z00.00; Problem Code Type: ICD-10; MD Amy [address], [place], [address] , [facility] 4 10:41:25 Seborrhe ic dermatit is 79502792 Active 201705/19/19 20 - Comments only - [...] Code Type: ICD-10; MD Amy [address], [facility] [address] [facility] 4 10:41:25 Cough 58538804 Completed 201711/27/2017 11/14/19 18 - Comments only - Jorge Alvarado M.D. - Lungs are clear. Discusse d symptoma tic treatmen t (see pt instruct ions). patient instruct ed to call w/ worsenin g or persiste nt symptoms . Problem Code: R05; Problem Code Type: ICD-10; Not Available [facility] 3 04:37:53 Nocturia 363980401 Completed 201704/25/2023 05/20/19 21 - Deterior ated - Tracy Fletcher - Symptoms of nocturia and increase d frequenc y/urgenc y worsened since last discusse d. Currentl y taking [facility] [place] for symptom manageme nt. Wonderin g about recommen dations for high quality suppleme nts and appropri ate dosing. Would like to continue with natural suppleme nts for time being. - Recommen d [facility] at 320mg/d for addition al 3 months. - Call if symptoms worsen or fail to improve to discuss pharmece utical manageme nt options. Problem Code: R35.1; Problem Code Type: ICD-10; MD Amy [address], [place], [address] , [facility] 4 10:41:52 Right lower quadrant pain 191756625 Completed 201704/25/2023 09/23/19 20 - Comments only [...] Code Type: ICD-10; MD [address], [place], [address] , [facility] 4 10:41:52 Abnormal finding on evaluati on procedur e 736381408 Completed 201806/11/2018 Problem Code: R89.9; Problem Code Type: ICD-10; Not Available [facility] 3 04:37:54 Disorder of skin and/or subcutan eous tissue 97679076 Completed 201804/25/2023 05/19/19 20 - Comments only - Jorge Alvarado M.D. - It appears that he has an upcoming appointm ent at [facility], although I do not know if that will be canceled due to the pandemic . We will have the office call him with this informat ion, and with the number to contact their office and confirm appointm ent or reschedu le as appropri ate. Problem Code: L98.9; Problem Code Type: ICD-10; MD Amy [address], [place], [address] , [facility] 4 10:41:52 Hyperlip idemia 61792526 Active 201905/24/19 22 - Comments only - Jorge Alvarado M.D. - Lipids: TC 188 ( 2:18:00 PM) LDL 108 ( 2:18:00 PM) HDL 64 ( 2:18:00 PM) TG 82 (04/01/2 021 2:18:00 PM) Tolerate s statin well. Check CMP today. Problem Code: E78.5; Problem Code Type: ICD-10; MD [address], [place], [address] , [facility] 4 10:41:26 External dav m 8998179 Completed 201909/29/2019 09/23/19 20 - Comments only - Jorge Alvarado M.D. - Mild. Warm compress es, call with worsenin g. Problem Code: H00.019; Problem Code Type: ICD-10; Not Available [facility] 3 04:37:54 Screenin g for malignan t neoplasm of colon Completed 202004/25/2023 Problem Code: Z12.11; Problem Code Type: ICD-10; MD [address], [place], [address] , [facility] 4 10:41:52 Closed fracture of single right rib 96509622370 076108 Completed 202009/15/2020 09/09/19 21 - Comments only - Jorge Alvarado M.D. - Pain is slowly improvin g. Reviewed timeline for recovery from rib fracture . Reviewed bracing for Valsalva . APAP/ibu profen for pain. Increase activity as tolerate d, with caution with lifting/ pushing/ pulling. Call with any concerns . Problem Code: S22.31xA ; Problem Code Type: ICD-10; Not Available [facility] 3 04:37:54 Removal of suture Completed 202104/07/2021 03/31/19 22 - Comments only - Jorge Alvarado M.D. - Procedur e note: #2 simple sutures on posterio r L thigh removed by standard procedur e. Patient tolerate d procedur e well, w/o complica tions. Problem Code: Z48.02; Problem Code Type: ICD-10; Not Available [facility] 3 04:37:54 Viral screenin g Completed 202104/07/2021 03/31/19 22 - Comments only - Jorge Alvarado M.D. - Rapid antigen test here negative . Document ation provided to patient. Problem Code: Z11.52; Problem Code Type: ICD-10; Not Available [facility] 3 04:37:54 Herpesvi bebeto infectio n 91407666 Completed 202104/25/2023 Problem Code: B00.9; Problem Code Type: ICD-10; MD Amy [address], [place], [address] , [facility] 4 16:59:12 Adult health examinat ion Completed 202106/22/2021 05/24/19 22 - Comments only - Jorge Alvarado M.D. - Medicare wellness exam. HRA reviewed . Personal ized preventi on plan competed and rev'd with patient. patient was given copy of PPP at [facility]clusi on of visit. Problem Code: Z00.00; Problem Code Type: ICD-10; MD Amy [address], [place], [address] , [facility] 4 10:41:25 Nicotine dependen ce 98133121 Completed 202104/25/2023 05/24/19 22 - Comments only - Jorge Alvarado M.D. - Outside window for lung ca screenin g, but needs AAA screen - ordered. Problem Code: Z87.891; Problem Code Type: ICD-10; MD [address], [place], [address] , [facility] 4 10:41:52 Benign prostati c hyperpla gordon 100873142 Active 202105/24/19 22 - Comments only - [...] Code Type: ICD-10; MD Amy [address], [place], [address] , [facility] 4 10:41:25 Superfic ial injury of conjunct deb 9964128 Completed 202101/13/[address], [place], [address] , [facility] 4 16:59:22 Localize d eruption of skin 964138912 Completed 202102/06/2022 01/25/20 22 - Comments only [...] R21; Problem Code Type: ICD-10; Not Available [facility] 3 04:37:55 Sleep disorder 15450767 Completed 202102/06/2022 01/25/20 22 - Comments only [...] G47.8; Problem Code Type: ICD-10; Not Available [facility] 3 04:37:56 Rupture of rotator cuff of left shoulder 41527281030 745816 Completed 202205/28/2022 Problem Code: M75.102; Problem Code Type: ICD-10; Not Available [facility] 3 04:37:56 Fitting of hearing aid Completed 202204/25/2023 Problem Code: Z46.1; Problem Code Type: ICD-10; MD Amy [address], [place], [address] , [facility] 10:41:52 Bursitis of right knee 97976845450 00876 Completed 202206/23/2022 05/29/19 23 - Comments only - Jorge Alvarado M.D. - Infrapaarianna vallecillo. Waxes and wanes. Not painful or limiting . Likely r/t previous injury, surgery, OA. He will let me know if it becomes botherso me and I will refer to PT and ortho. Problem Code: M70.51; Problem Code Type: ICD-10; Not Available [facility] 3 04:37:56 Prostate specific antigen above referenc e range 182855245 Completed 202204/25/2023 Problem Code: R97.20; Problem Code Type: ICD-10; MD Amy [address], [place], [place], [address] [place] [address] , [facility] 10:41:52 Asthenia 90162679 Completed 202204/25/2023 Problem Code: R53.1; Problem Code Type: ICD-10; MD Amy [address], [place], [place], [address] [place] [address] 10:41:52 Muscle pain 94659388 Completed 202204/25/2023 Problem Code: M79.10; Problem Code Type: ICD-10; MD Amy [address], [facility] [address] [place] [address] 10:41:52 Fatigue 11450631 Completed 202204/25/2023 Problem Code: R53.83; Problem Code Type: ICD-10; MD Amy [address], [place], [address] , [facility] 4 10:41:52 Inflamma tory polyarth ropathy 551540705 Completed 202204/25/2023 Problem Code: M06.4; Problem Code Type: ICD-10; MD Amy [address], [facility] [address] [facility] 4 10:41:52 Polyp of colon 92753345 Completed 201711/14/2022 Problem Code: K63.5; Problem Code Type: ICD-10; Not Available [facility] 3 04:37:57 Malignan t melanoma of skin 37382797 Completed 201711/14/2022 Problem Code: C43.9; Problem Code Type: ICD-10; Not Available [facility] 3 04:37:57 Allergic contact dermatit is caused by plant material 64942678425 015854 Completed 201711/13/2017 Problem Code: L23.7; Problem Code Type: ICD-10; Not Available [facility] 3 04:37:57 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 - Recheck as above. Problem Code: R74.01; Problem Code Type: ICD-10; Not Available [facility] 4 05:38:12 Primary malignan t neoplasm of prostate 56741385 Active [address], [facility] [address] , [facility] 4 10:40:36 SARS-CoV -2 Completed 202301/13/[address], [facility] [address] , [facility] 4 16:59:15 Acute low back pain 778478737 Active [address], [facility] [address] , [facility] 4 16:01:44 Problem Notes None [...] and Address Organization Details Last Updated DateTime 176.53 cm 25 kg/m2 14431.8 9 g 97.5 [degF] 99 % 99 % 64 /min 128 mm[Hg] 68 mm[Hg] Heather Mcclure MA [facility] 12:02:28 Social History Question Answer Notes LastModified by Organization Details LastModified Time Tobacco Smoking Status Former Smoker REBEKAH Morales, [facility] 05/28/2023 09:10:53 Do You Have An Advance Directive? Yes Information not available 05/28/2023 Is Blood Transfusion Acceptable In An Emergency? Yes Information not available 05/28/2023 What Is Your Code Status? Full Code [email or web address] Information not available 05/28/2023 What Type Of Diet Are You Following? REGULAR [email or web address] Information not available 05/28/2023 How Many Days Of Moderate To Strenuous Exercise, Like A Brisk Walk, Did You Do In The Last 7 Days? 7 [email or web address] Information not available 05/28/2023 How Many Times Per Week Do You Exercise? 5-7 Times Per Week [email or web address] Information not available 05/28/2023 When Did You Quit Smoking? 16+yearssinissacoly jaramillovandana Information not available 05/28/2023 Date Of Most Recent HSA 05/28/2023 [email or web address] Information not available 05/28/2023 Would You Say That, In General, Your Health Is Very Good [email or web address] Information not available 05/28/2023 How Often Does Anyone, Including Family, Physically Hurt You? Never [email or web address] Information not available 05/28/2023 How Often Does Anyone, Including Family, Insult Or Talk Down To You? Rarely [email or web address] Information not available 05/28/2023 How Often Does Anyone, Including Family, Threaten You With Harm? Never [email or web address] Information not available 05/28/2023 How Often Does Anyone, Including Family, Scream Or Curse At You? Never [email or web address] Information not available 05/28/2023 Within The Past 12 Months, You Worried That Your Food Would Run Out Before You Got Money To Buy More. Never True [email or web address] Information not available 05/28/2023 Within The Past 12 Months, The Food You Bought Just Didn't Last And You Didn't Have Money To Get More. Never True Information not available 05/28/2023 How Hard Is It For You To Pay For The Very Basics Like Food, Housing, Medical Care, And Heating? Would You Say It Is: Not Hard At All [email or web address] Information not available 05/28/2023 In The Past 12 Months, Has Lack Of Reliable Transportation Kept You From Medical Appointments, Meetings, Work Or From Getting Things Needed For Daily Living? No [email or web address] Information not available 05/28/2023 What Is Your Housing Situation Today? I Have Housing. [email or web address] Information not available 05/28/2023 How Often In The Past Year Have You Used Marijuana (including Smoking, Vaping, Dabbing, Or Edibles)? Monthly Or Less [email or web address] Information not available 05/28/2023 How Often In The Past Year Have You Used Prescription Medications That Were Not Prescribed To You? Never [email or web address] Information not available 05/28/2023 How Often In The Past Year Have You Taken Your Own Prescription Medication More Than The Way It Was Prescribed Or For Different Reasons Than Its Intended Purpose? Never [email or web address] Information not available 05/28/2023 How Often In The Past Year Have You Used Other Drugs (for Example, Heroin, Cocaine, Meth, Salvia, Inhalants)? Never [email or web address] Information not available 05/28/2023 Have You Ever Used IV Drugs? No [email or web address] Information not available 05/28/2023 What Matters Most To You? Preventative Medicine [email or web address] Information not available 05/28/2023 During The Past Four Weeks Has Your Physical And Emotional Health Limited Your Social Activities With Family And Friends, Neighbors, Or Groups? Not At All [email or web address] Information not available 05/28/2023 During The Past Four Weeks, Was Someone Available To Help You If You Needed And Wanted Help? (For Example, If You [place] Very Nervous, Lonely, Or Blue; Got Sick And Had To Stay In Bed; Needed Someone To Talk To; Needed Help With Daily Chores; Or Needed Help Just Taking Care Of Yourself.) Yes- Quite A Bit [email or web address] Information not available 05/28/2023 During The Past Four Weeks, What Was The Hardest Physical Activity You Could Do For At Least 2 Minutes? Moderate [email or web address] Information not available 05/28/2023 Can You Get To Places Out Of Walking Distance Without Help? (For Example, Can You Travel Alone On Buses Or Taxis, Or Drive Your Own Car?) Yes Information not available 05/28/2023 Can You Go Shopping For Groceries Or Clothes Without Someone? s Help? Yes Information not available 05/28/2023 Can You Prepare Your Own Meals? Yes [email or web address] Information not available 05/28/2023 Can You Do Your Housework Without Help? Yes [email or web address] Information not available 05/28/2023 Because Of Any Health Problems, Do You Need The Help Of Another Person With Your Personal Care Needs Such As Eating, Bathing, Dressing, Or Getting Around The House? No [email or web address] Information not available 05/28/2023 Can You Handle Your Own Money Without Help? Yes Information not available 05/28/2023 Are You Having Difficulties Driving Your Car? No [email or web address] Information not available 05/28/2023 Do You Always Fasten Your Seat Belt When You Are In A Car? Yes- Usually [email or web address] Information not available 05/28/2023 How Often During The Past Four Weeks Have You Been Bothered By Any Of The Following Problems? Falling Or Dizzy When Standing Up? Never [email or web address] Information not available 05/28/2023 Sexual Problems? Seldom [email or web address] Informat ion not available 05/28/2023 Trouble Eating Well? Never Information not available 05/28/2023 Teeth Or Denture Problems? Never Information not available 05/28/2023 Problems Using The Telephone? Never [email or web address] Information not available 05/28/2023 Tiredness Or Fatigue? Seldom [email or web address] Information not available 05/28/2023 Have You Had 2 Or More Falls Or Sustained An Injury With A Fall In The Last Year? No [email or web address] Information not available 05/28/2023 Do You Have Difficulty With Walking Or Balance? No [email or web address] Information not available 05/28/2023 Do You Currently Use A Hearing Device? No [email or web address] Information not available 05/28/2023 Do You Currently Have Any Trouble With Your Vision? No Wears Glasses, But No Changes Or Concerns Information not available 05/28/2023 Do You Exercise For About 20 Minutes Three Or More Days A Week? Yes- Most Of The Time [email or web address] Information not available 05/28/2023 Are There Any Safety Concerns In Your Home (see Attached CDC Pamphlet)? No [email or web address] Information not available 05/28/2023 How Often Do You Have Trouble Taking Medicines The Way You Have Been Told To Take Them? I Always Take Them As Prescribed [email or web address] Information not available 05/28/2023 How Confident Are You That You Can Control And Manage Most Of Your Health Problems? Very Confident [email or web address] Information not available 05/28/2023 Do You Currently Have Any Difficulty With Your Hearing? No [email or web address] Information not available 05/28/2023 Date Of Most Recent SBINS 05/28/2023 Information not available 05/28/2023 What Was The Date Of Your Most Recent Tobacco Screening? 02/26/2024 [email or web address] Information not available 02/26/2024 What Is Your Current Pack Years? 20-29packyears [email or web address] Information not available 05/28/2023 What Types Of Sporting Activities Do You Participate In? Walking, Tennis, Yard Work And Carpentry, Farm Work [email or web address] Information not available 05/28/2023 Has Tobacco Cessation Counseling Been Provided? No [email or web address] Information not available 11/12/2023 Do You Have Any Dietary Restrictions? No [email or web address] Information not available 05/28/2023 Do You Or Have You Ever Used Any Other Forms Of Tobacco Or Nicotine? No Information not available 05/28/2023 Sex: Male Functional Status Question Answer Note LastModified by Organization D etails LastModified Time What is your exercise level? Moderate [email or web address] Information not available 05/28/2023 Mental Status None [...] [email or web address] Not available 2022 03:57:32 Brother Pancreatitis [email or web address] Not av ailable 05/28/2023 09:09:50 Notes:*Problem: father- yoana ntia passed August 2021 mother: skin cancer, passed 2000 70, 73: sister HTN, brother healthy Medical History No medical history recorded. Immunizations Vaccine Type Date Status Note Provider Nam e and Address Organization Details Recorded Time Influenza, high-dose, trivalent, PF 4 completed JORGE ALVARADO MD [address], [place], [address], [facility] 12/02/2023 15:57:00 Td (adult), 2 Lf tetanus toxoid, preservative free, adsorbed 9 completed Not Available [facility] 12/28/2022 06:23:50 Influenza, split virus, quadrivalent, PF 9 completed Not Available [facility] 12/28/2022 06:23:51 Influenza, split virus, quadrivalent, preservative 8 completed Not Available [facility] 12/28/2022 06:23:51 Influenza, split virus, quadrivalent, preservative 8 completed Not Available [facility] 12/28/2022 06:23:51 zoster recombinant 0 completed Not Available [facility] 12/28/2022 06:23:51 zoster recombinant 0 completed Not Available [facility] 12/28/2022 06:23:51 Influenza, high-dose, quadrivalent, PF 2 completed Not Available [facility] 12/28/2022 06:23:51 COVID-19, mRNA, LNP-S, PF, 100 mcg/0.5mL dose or 50 mcg/0.25mL dose 1 completed Not Available [facility] 12/28/2022 06:23:51 COVID-19, mRNA, LNP-S, PF, 100 mcg/0.5mL dose or 50 mcg/0.25mL dose 1 completed Not Available [facility] 12/28/2022 06:23:51 COVID-19, mRNA, LNP-S, PF, 100 mcg/0.5mL dose or 50 mcg/0.25mL dose 1 completed Not Available [facility] 12/28/2022 06:23:51 SARS-COV-2 (COVID-19) vaccine, UNSPECIFIED 2 completed Not Available [facility] 12/28/2022 06:23:52 Pneumococcal conjugate PCV20, polysaccharide DOD618 conjugate, adjuvant, PF 3 completed Not Available [facility] 12/28/2022 06:23:52 pneumococcal polysaccharide PPV23 1 completed Not Available [facility] 12/28/2022 06:23:52 influenza, unspecified formulation 1 completed Not Available [facility] 12/28/2022 06:23:52 Influenza, high-dose, quadrivalent, PF 3 completed Not Available [facility] 03/01/2023 05:33:20 Past Encounters Encounter ID Performer Location Encounter Start Date Encounter Closed Date Diagnosis/Indication Diagnosis SNOMED-CT Code Diagnosis ICD10 Code Diagnosis Note [id number] JORGE ALVARADO MD [address] [address] 02/26/2024 11:56:17 02/26/2024 12:30:53 Chronic cough 61313139 R05.3 - Present for 8-9 months, no clear trigger- Occasional mucus production - Plan:- Order chest x-ray- Follow up on results, consider further evaluation if needed Mass of neck 805875232 R 22.1 - Present for a couple of months- Lymph node vs. cyst vs. malignancy .- Possibly increasing in size, non-painfu l- Plan:- Order neck ultrasound - Order complete blood count (CBC)- Follow up on results, consider further evaluation if needed Infrapatel lar bursitis of right knee 930143459 M70.51 - History of knee surgery- On-going [...] [employer] - [employer] INSUR[employer] - PLAN F (MEDICARE SUPPLEMENT) Rolando Brown [id number] Rolando Brown 02/26/2024 1 MEDICARE [place]: [employer] SERVICES Rolando Brown [id number] Rolando Brown Notes Date Note Type [...] symptoms. JORGE ALVARADO MD [address], [place], [address], [facility]. 02/26/2024 16:20:14
--- OUTSIDE RECORDS SUMMARY | 2024-03-28 10:04 | XMS_ITS | Encounter Summary ---
Author Organization [facility] Address [address] [place] [address] Care Team Providers Care Vb Net Developer Name Role Phone Jeff Pfeiffer MD Primary Care Provide r Encounter Details Date Type Department Care Team (Late st Contact Info) Description 2024 Lab Requisition [facility] Pathology & Laboratory Medicine - [facility] [address] [place] [address] Mich Martins MD [address] [place] [id number] Localized swelling, mass and lump, neck Social History Tobacco Use Types Packs/Day Years [...] Name Priority Date/Time Associated Diagnosis Comments NON INSTRUCTOR EXTENSION WORK/FNA CYTOLOGY Today 03/24/2024 11:35 EST Localized swelling, mass and lump, neck documented in this encounter Results * NON INSTRUCTOR EXTENSION WORK/FNA CYTOLOGY (03/24/2024 11:35 EST) Note to Patient The following pathology results have been interpreted by your pathologist and may be available to you before your health provider has had the opportunity to review them. Please allow time for your provider to receive these results and explore management options, if applicable. 03/26/2024 16:26 EST [facility] Final Diagnosis A. SALIVARY GLAND, RIGHT SUBMANDIBULAR MASS, FINE NEEDLE ASPIRATION CYTOLOGY: - Adequate for evaluation. - Neoplasm: Benign ([place] category NANCY). 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 03/26/2024 16:26 [facility] Diagnosis Comment Preparations are adequate for evaluation and the majority of the cellular material is on the air-dried Diff-Quik stained slide. 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 No atypia or malignancy is identified. The technical component of the specimen processing was performed at the [facility] Pathology Department, [address] [place] [address] (CLIA [id number]). The professional component of the specimen evaluation (slide review and issuing of the final diagnosis) was performed at [facility], [address] [place] [address] (CLIA License Number [id number]). 03/26/2024 16:26 [facility] Attestation By the signature below, the attending physician certifies that they have personally conducted a gross and/or microscopic examination of the described specimens and rendered or confirmed the above diagnosis. 03/26/2024 16:26 [facility] at 1626 Rapid Diagnosis A.RIGHT SUBMANDIBULAR MASS,ULTRASOUND GUIDED FINE NEEDLE ASPIRATION: Evaluation Episode 1: Pass 1: Adequate for evaluation. The above rapid on site evaluation was performed by pathologist Dr. Abhijit Forrester at [facility], [address] [place] [address]. 03/24/24; 1135 03/26/2024 16:26 [facility] Clinical History Right submandibular mass. R22/1 03/26/2024 16:26 [facility] Gross Description A. 1 fixed prepared slides, 2 Diff-Quik stained prepared slides, and 1 tube of Cytolyt processed by selective cellular enhancement technique were received 03/26/2024 16:26 [facility] Performing Lab [facility] 03/26/2024 16:26 [facility] Scanned Images 03/26/2024 16:26 [facility] Fine Needle Aspirate SUBMANDIBULAR SALIVARY GLAND STRUCTURE / Unknown 03/24/2024 11:35 EST 2024 6:41 EST us Mich Martins MD PATHOLOGY ORDERABLES Final Resul t [facility] [address] [place], [place] [id number] [facility] [address] [place], [place] [address] documented in this encounter Visit Diagnoses Diagnosis Localized swelling, mass and lump, neck Swelling, mass, or lump in head and neck documented in this encounter Care Teams Vb Net Developer Relationship Specialty Start Date End Date Jeff Pfeiffer MD [address] [place] [address] PCP - General 08/27/22 documented as of this encounter
--- OUTSIDE RECORDS SUMMARY | 2024-03-28 10:04 | XMS_ITS | Encounter Summary ---
Author Organization [facility] Address [facility] [place] [address] Care Team Providers Care Community Midwife Name Role Phone Jeff Pfeiffer MD Primary Care Provider Reason for Referral * Diagnostic Test (Routine) - Closed Specialty Diagnoses / Procedures Referred By Contac t Referred To Contact Radiology Diagnoses Malignant neoplasm of prostate Procedures MRI Pelvis wo (Prostate) MRI Pelvis wwo (Prostate) Teetee Han MD [facility] [place] [address] [place] [address] Referral ID Status Reason Start Date Expiration Date V isits Requested Visits Authorized [id number] Closed Specialty Service Requested 10/18/2023 04/17/2025 1 1 Reason for Visit * Diagnostic Test (Routine) - Closed Specialty Diagnoses / Procedures [facility] Referred To Contact Radiology Diagnoses Malignant neoplasm of prostate Procedures MRI Pelvis wo (Prostate) MRI Pelvis wwo (Prostate) Teetee Han MD [facility] [place] [address] [place] [address] Referral ID Status Reason Start Date Expiration Date V isits Requested Visits Authorized [id number] Closed Specialty Service Requested 10/18/2023 04/17/2025 1 1 Encounter Details Date Type Department Care Team (Latest Contact Info) Description 01/27/2024 7:50 AM EST - 01/27/2024 11:59 PM EST Hospital Encounter MRI at [facility] [place] [address] Leroy Berumen MD [address] [place] [address] [place] [address] Malignant neoplasm of prostate Discharge Disposition: Home Social History Tobacco Use Types Packs/Day Years Used Date Smoking Tobacco: Former Cigarettes Q uit: 1989 Smokeless Tobacco: Never Alcohol Use Standard Drinks/Week Comments Yes 15 (1 standard drink = 0.6 oz pu re alcohol) [facility] Utilities Answer Date [...] EST TH Visit (TeleHealth) Radiation Oncology at [address] [phone] Leroy Berumen MD [address] [place] [address] [place] [address] documented as of this encounter Procedures Procedure Name Priority Date/Time Associated Diagnosis Comments MRI PELVIS WO (PROSTATE) Routine 01/27/2024 9:09 AM EST Malignant neoplasm of prostate documented in this encounter Results * MRI Pelvis wo (Prostate) (01/27/2024 9:09 AM EST) WORKSTATION ID [id number] RAD Anatomical Region Laterality Modality Pelvis Magnetic Resonan ce Impressions 01/27/2024 1:25 PM EST Limited MRI for radiation treatment planning. Thank you for letting us participate in the care of this patient. ??If you are a health care provider and have any questions regarding this report, please contact the number below. ??For patients who have questions please contact the health lead caregiver that requested your imaging first. ? Narrative [...] patients who have questions please contactthe health lead caregiver that requested your imaging first. Leroy Berumen MD IMG MRI ORDERABLES documented in this encounter Visit Diagnoses Diagnosis Malignant neoplasm of prostate documented in this encounter Care Teams Community Midwife Relationship Specialty Start Date End Date Jeff Pfeiffer MD [address] [place] [address] PCP - General Family Medicine 03/12/23 documented as of this encounter
--- OUTSIDE RECORDS SUMMARY | 2024-03-28 10:04 | XMS_ITS | Encounter Summary ---
Author Organization [facility] Address [address] [place] [address] Care Team Providers Care Summer Internship Name Role Phone Jeff Pfeiffer MD Primary Care Provide r Encounter Details Date Type Department Care Team (Late st Contact Info) Description 09/07/2022 Lab Requisition [facility] Pathology & Laboratory Medicine - [facility] [address] [place] [address] Outr Resulting Lab, Provider Social History Tobacco [...] Lyme Ab Negative Negative 09/10/2022 9:11 EDT [facility] Blood VENOUS BLOOD / Unknown 09/06/2022 15:10 EDT 09/07/2022 19:27 EDT us Provider Outr Resulting Lab IMMUNOLOGY AND SEROL OGY ORDERABLES Final Result [facility] [address] [place] [address] documented in this encounter Visit Diagnoses Not on filedocumented in this encounter Care Teams Summer Internship Relationship Specialty Start Date End Date Jeff Pfeiffer MD [address] [address] PCP - General 08/27/22 documented as of this encounter
--- OUTSIDE RECORDS SUMMARY | 2024-03-28 10:04 | XMS_ITS | Encounter Summary ---
Author Organization [facility] Address [facility] [place] [address] Care Team Providers Care Linoleum Tile Layer Name Role Phone Jeff Pfeiffer MD Primary Care Provider [phone] Encounter Details Date Type Department Care Team (Late st Contact Info) Description 07/11/2023 Notes Only Radiation Oncology at [address] [phone] Leroy Berumen MD [address] [place] [address] [place] [address] Social History Tobacco Use Types Packs/Day Years Used Date Smoking Tobacco: Former Cigarettes Q uit: 1989 Smokeless Tobacco: Never Alcohol Use Standard Drinks/Week Comments Yes 15 (1 standard drink = 0.6 oz pu re alcohol) [facility] Utilities Answer Date Recorded In the past 12 months has th e electric, gas, oil, or water [employer] threatened to shut off services in your [...] TH Visit (TeleHealth) Radiation Oncology at [address] [phone] Leroy Berumen MD [address] [place] [address] DR RADIATION ONCOLOGY [place], [place] [address] documented as of this encounter Visit Diagnoses Not on filedocumented in this encounter Care Teams Linoleum Tile Layer Relationship Specialty Start Date End Date Jeff Pfeiffer MD [address] [place] [address] PCP - General Family Medicine 03/12/23 documented as of this encounter
--- OUTSIDE RECORDS SUMMARY | 2024-03-28 10:04 | XMS_ITS | Encounter Summary ---
Author Organization [facility] Address [facility] [place] [id number] Care Team Providers Care Casting Machine Set Up Operator Name Role Phone Jeff Pfeiffer MD Primary Care Provider [phone] Reason for Visit * Reason Onset Date Comments Pre Procedure Call 01/01/2024 Encounter Details Date Type Department Care Team (Late st Contact Info) Description 01/01/2024 3:00 PM EST Telephone Radiation Oncology at [address] [phone] Rad NurseSt Judge Pre Procedure [...] 3:08 PM EST Radiation Oncology Nurse Note [place], [place] Patient Information for Prostate Fiducial (Gold Coil) Placement Procedure Date: 01/08/24 Arrival Time: 829 Time of Procedure: 0900 Location: [place], [place] Why Fiducial Placement or also known [...] N/A ] Prescriptions to get filled: [facility] [employer] Prescription for Antibiotic: to prevent infection [ [...] be done at : [ X ] [facility] [place] at the Radiation Oncology Department section 2K [ ] [facility] [place], [place] [Date: 01/27/24 ] [Time: arrive at 0810 ] For proper visualization of prostate, it is required that you have a moderately full bladder. This will require you to arrive 30 minutes before scheduled appointment and drink 2 glasses of water upon arrival. There are no restrictions with eating. How to reach us: [facility] [phone] For weekends and after hours: Call [facility] [place] [place] ask for the clinical science liaison radiation oncologist Patient was provided a printed copy of these instructions. This was reviewed with him. He states his questions have been answered and he verbalized understanding of these instructions. documented in this encounter Plan of Treatment Upcoming Encounters Date Type Department Care Team (Late st Contact Info) Description 04/17/2024 9:30 AM EST TH Visit (TeleHealth) Radiation Oncology at [address] [phone] Leroy Berumen MD [address] [place] [address] DR RADIATION ONCOLOGY [place], [place] [address] documented as of this encounter Visit Diagnoses Diagnosis Malignant neoplasm of prostate- Primary documented in this encounter Care Teams Casting Machine Set Up Operator Relationship Specialty Start Date End Date Jeff Pfeiffer MD [address] [place] [address] PCP - General Family Medicine 03/12/23 documented as of this encounter
--- OUTSIDE RECORDS SUMMARY | 2024-03-28 10:04 | XMS_ITS | Encounter Summary ---
Author Organization [facility] Address [facility] [place] [address] Care Team Providers Care Investment Sales Assistant Name Role Phone Jeff Pfeiffer MD Primary Care Provider [phone] Encounter Details Date Type Department Care Team (Late st Contact Info) Description 07/18/2023 8:30 AM EDT Office Visit Radiation Oncology at [address] [phone] Leroy Berumen MD [address] [place] [address] DR RADIATION ONCOLOGY [place], [place] [phone] Malignant neoplasm of prostate Social History Tobacco Use Types Packs/Day Years Used Date Smoking Tobacco: Former Cigarettes Q uit: 1989 Smokeless Tobacco: Never Alcohol Use Standard Drinks/Week Comments Yes 15 (1 standard drink = 0.6 oz pu re alcohol) [facility] Utilities Answer Date Recorded In the past 12 months has e [employer], gas, oil, or water [employer] threatened to shut off services in your [...] Follow Up Note Leroy Berumen MD, MS [facility] PATIENT IDENTIFICATION: PATIENT NAME: Rolando [...] up this summer and would like to [place] back after returning from [facility] in late September. I affirmed my support [...] TH Visit (TeleHealth) Radiation Oncology at [address] [phone] Leroy Berumen MD [address] [place] [address] DR RADIATION ONCOLOGY [place], [place] [address] documented as of this encounter Visit Diagnoses Diagnosis Malignant neoplasm of prostate documented in this encounter Care Teams Investment Sales Assistant Relationship Specialty Start Date End Date Jeff Pfeiffer MD [address] [place] [address] PCP - General Family Medicine 03/12/23 documented as of this encounter
--- OUTSIDE RECORDS SUMMARY | 2024-03-28 10:04 | XMS_ITS | Encounter Summary ---
Author Organization [facility] Address [facility] [place] [address] Care Team Providers Care Tool Grinding Machine Operator Name Role Phone Jeff Pfeiffer MD Primary Care Provider [phone] Reason for Visit * Reason Onset Date Comments Results 06/26/2023 PSA Encounter Details Date Type Department Care Team (Late st Contact Info) Description 06/26/2023 Telephone Radiation Oncology at [address] [phone] Leesa Randall, RN Results (PSA) Social History Tobacco Use Types Packs/Day Years Used Date Smoking Tobacco: Former Cigarettes Q uit: 1989 Smokeless Tobacco: Never Alcohol Use Standard Drinks/Week Comments Yes 15 (1 standard drink = 0.6 oz pu re alcohol) [facility] Utilities Answer Date Recorded In [...] TH Visit (TeleHealth) Radiation Oncology at [address] [phone] Lreoy Berumen MD [address] [place] [address] DR RADIATION ONCOLOGY [place], [place] [phone] documented as of this encounter Visit Diagnoses Not on filedocumented in this encounter Care Teams Tool Grinding Machine Operator Relationship Specialty Start Date End Date Jeff Pfeiffer MD [address] [place] [address] PCP - General Family Medicine 03/12/23 documented as of this encounter
--- OUTSIDE RECORDS SUMMARY | 2024-03-28 10:04 | XMS_ITS | Encounter Summary ---
Author Organization [facility] Address [facility] [place] [address] Care Team Providers Care Mechanical Laboratory Technician Name Role Phone Jeff Pfeiffer MD Primary Care Provider [phone] Reason for Visit * Reason Comments Injections * Treatment/Therapy Plan Authorization (Routine) - Authorized Specialty Diagnoses / Procedures Referred By Neil keller Referred To Contact Hematology and Oncology Diagnoses Malignant neoplasm of prostate Leroy Berumen MD [address] [place] [address] [place] [address] St[facility] Hem Onc Infusion [address] [place] [phone] Referral ID Status Reason Start Date Expiration Date V isits Requested Visits Authorized [id number] Authorized 07/12/2023 07/11/2024 99 101 Encounter Details Date Type Department Care Team (Late st Contact Info) Description 12/13/2023 8:30 AM EDT Infusion Hematology Oncology at [address] [phone] Malignant neoplasm of prostate Social History Tobacco Use Types Packs/Day Years Used Date Smoking Tobacco: Former Cigarettes Q uit: 1989 Smokeless Tobacco: Never Alcohol Use Standard Drinks/Week Comments Yes 15 (1 standard drink = 0.6 oz pu re alcohol) [facility] Utilities Answer Date Recorded In [...] EST TH Visit (TeleHealth) Radiation Oncology at [address] [phone] Leroy Berumen MD [address] [place] [address] [place] [address] documented as of this encounter [...] Gluteal documented in this encounter Care Teams Mechanical Laboratory Technician Relationship Specialty Start Date End Date Jeff Pfeiffer MD [address] [place] [address] PCP - General Family Medicine 03/12/23 documented as of this encounter
--- OUTSIDE RECORDS SUMMARY | 2024-03-28 10:05 | XMS_ITS ---
Author Organization Unknown Address [address] [place] [phone] Phone Care Team Providers Care Pattern Attendant Name Role Phone ILAN Judge MD Attending Unavailable FROYLAN JOHNSON FACILITIES MAINTENANCE TECHNICIAN ER Unavailable CHRISTIANO FUNG MD Primary Unavailable [...] D Friday, August 28, 2020 10:25:51 AM [id number] Electronically Reviewed and Signed By: BOBY BOBO M.D. RADIOLOGIST 08/28/20 11:55 Copy for: CHRISTIANO FUNG MD via link DISCHARGED Social History Type Status Start Date End Date Code Code Syst em Smoking History Never smoker (Never Smoked) 753524384 SNOMED CT Sex Male Hospital Discharge Instructions [...] FDA Left shoulder rotator cuff repair 03/23 [id number] 3 12/18/2025 Arthre x(R) AR-2326 BCC Tendon/lig ament bone anchor, bioabsorba ble 0100 8888 6702 7312 1725 1130 1014 6820 01 Active FDA Left shoulder rotator cuff repair 03/23 [id number] 1 01/17/2025 Arthre x(R) AR-2600 SBS-4 Problems Problem Start Date Resolved Date Status Code Code System DEPRESSION 12/27/2021 resolved 61171422 SNOMED-C T HYPERTENSION 12/27/2021 resolved 73886840 SNOMED -CT Allergies and Adverse Reactions Allergy Substance Reaction Severity Start Date Concern Status Co de Code System No Known Allergies Active [id number] SNO MED-CT Plan of Treatment MRI UPPER EXT JOINT W/O CONTRAST 2021 US ABDOMEN LIMITED 1 ORGAN 06/12/2021 Encounters Encounter Diagnosis Start Date Code Code Sys tem Other chest pain 08/27/2020 SNOMED-CT Personal Care Team Section Performer Name Performer Role Active Date Inactive Da te
--- OUTSIDE RECORDS SUMMARY | 2024-03-28 10:05 | XMS_ITS | Encounter Summary ---
Author Organization [facility] Address [address] [place] [address] Care Team Providers Care Warehouse Team Leader Name Role Phone Jeff Pfeiffer MD Primary Care Provide r Encounter Details Date Type Department Care Team (Late st Contact Info) Description 05/19/2020 Lab Requisition [facility] Pathology & Laboratory Medicine - [facility] [address] [place] [address] Outr Resulting Lab, Provider Social History Tobacco [...] 4.5 ng/mL 05/19/2020 22:33 EDT [facility] Blood VENOUS BLOOD / Unknown 05/19/2020 9:04 EDT 05/19/2020 21:11 EDT Narrative [facility] - 05/19/2020 22:33 EDT NOTE: Serum PSA concentration should not be interpreted as absolute evidence for the presence or absence of malignant disease. Assayed on Siemens [employer] XPT using chemiluminescent technology.??Values obtained by using different assay methods cannot be used interchangeably. us Provider Outr Resulting Lab CHEMISTRY & BLOOD GA S ORDERABLES Final Result [facility] [address] [place] [address] documented in this encounter Visit Diagnoses Not on filedocumented in this encounter Care Teams Warehouse Team Leader Relationship Specialty Start Date End Date Jeff Pfeiffer MD [address] [place] [address] PCP - General 08/27/22 documented as of this encounter
--- OUTSIDE RECORDS SUMMARY | 2024-03-28 10:05 | XMS_ITS ---
Author Organization Unknown Address [address] [place] [address] [phone] Phone Care Team Providers Care Global Logistics Analyst Name Role Phone RENZO Diaz MD Attending Dominique FUNG MD Primary Unavailable Social History Type Status Start Date End Date Code Code Syst em Smoking History Never smoker (Never Smoked) 985834924 SNOMED CT Sex Male Vital Signs Vital Sign Value Unit Delta Value Delta Unit Date/Time Recent/Initial? Code Code System Systolic Blood Pressure 124 mm[Hg] 09/20/2020 13:14 Most Recent 8480-6 LOINC Diastolic Blood Pressure 74 mm[Hg] 09/20/2020 13:14 Most Recent 8462-4 LOINC Systolic Blood Pressure 107 mm[Hg] 09/20/2020 12:54 Initial 8480-6 LOINC Diastolic Blood Pressure 78 mm[Hg] 09/20/2020 12:54 Initial 8462-4 LOINC O2 Saturation 100 % 2020 13:14 Most Recent 99130- 5 LOINC O2 Saturation 97 % 2020 12:54 Initial 19640- 5 LOINC Pulse 71.0 /min 09/20/2020 13:14 [...] Po lyp Lesion Snare Tq 09/20/2020 completed 50475 CPT Implants Implanted JACKY Status Assigning Authority Procedure Date Lot Number Serial Number Manufacturing Date Expiration Date Distinct ID Code Brand Name Model Number Tendon/lig ament bone anchor, bioabsorba ble 0100 8888 6731 1282 1726 1031 1015 0260 43 Active FDA Left shoulder rotator cuff repair 03/23 [id number] 12/18/2025 Arthre x(R) [id number] BCC Tendon/lig ament bone anchor, bioabsorba ble 0100 8888 6702 7312 1725 1130 1014 6820 01 Active FDA Left shoulder rotator cuff repair 03/23 [id number] 01/17/2025 Arthre x(R) AR-2600 SBS-4 Problems Problem Start Date Resolved Date Status Code Code System DEPRESSION 12/27/2021 resolved 04959580 SNOMED-C T HYPERTENSION 12/27/2021 resolved 63671167 SNOMED -CT Allergies and Adverse Reactions Allergy Substance Reaction Severity Start Date Concern Status Co de Code System No Known Allergies Active 617367395 SNO MED-CT Plan of Treatment MRI UPPER EXT JOINT W/O CONTRAST 2021 US ABDOMEN LIMITED 1 ORGAN 06/12/2021 Encounters Encounter Diagnosis Start Date Code Code Sys tem Encounter for screening for malignant neoplasm of colo n 09/20/2020 SNOMED-CT Personal Care Team Section Performer Name Performer Role Active Date Inactive Da te
--- OUTSIDE RECORDS SUMMARY | 2024-03-28 10:05 | XMS_ITS | Encounter Summary ---
Author Organization [facility] Address [address] [place] [address] Care Team Providers Care Engineer Gas Pumping [employer] Name Role Phone Jeff Pfeiffer MD Primary Care Provide r Reason for Visit * Reason Comments Procedure Left neck * Consult (Routine) - Authorized Specialty Diagnoses / Procedures [facility] Referred To Contact Dermatology Diagnoses Basal cell carcinoma (BCC) of neck Procedures VA ADJ TISS XFER HEAD,FAC,HAND <10 SQCM VA ADJ TISS XFER HEAD,FAC,HAND 10.1-30 SQCM VA ADJ TISS XFER ANY AREA,30.1-60 SQCM VA SPLIT GRFT,HEAD,FAC,HAND,FEET <100 SQCM VA FULL THICK GRFT HEAD,FAC,HAND <20SQC VA FULL THICK GRFT HEAD,FAC,JUSTIN ADD 20SQ VA DELAY/SECTN FLAP FACE,GENIT,HAND,FT VA COMPOSITE SKIN GRAFT VA MOHS, 1 STAGE, HEAD/NECK/HAND/FEET/GENTI AL [facility] Dermatology [address] [place] [address] Phone: tel: fax: John Aden MD Phone: tel: fax: Referral ID Status Reason Start Date Expiration Date V isits Requested Visits Authorized [id number] Authorized 1 1 Encounter Details Date Type Department Care Team (Late st Contact Info) Description 08/27/2022 13:00 EDT Office Visit [facility] Dermatology [address] [place] [address] [address] [place], [place] [phone] John Aden MD [address] [place] [address] [place] [phone] Basal cell carcinoma (BCC) of left [...] site rapidly swells. Please call our office [phone] or if you have any questions or [...] 2022 Surgeon and Pathologist: John Aden MD Storage Facility Rental Clerk: Marlon Elliott MD Case #: [id number] [...] handed personally by the doctor to the account technician for frozen sectioning. The tissue was [...] INFORMATION: Rolando Brown SURGEON: John Aden MD NIGHT TIME NANNY: Marlon Elliott MD and Bernadine Dorantes MD [...] 08/29/2022 18:2 2 EDT us Scan 2 Principal Statistical Scientist PROCEDURE/MINOR SURGICAL OR DERABLES Final Result documented [...] daily. added in this encounter Care Teams Engineer [employer] Pumping [employer] Relationship Specialty Start Date End Date Jeff Pfeiffer MD [address] [place] [phone] PCP - General 08/27/22 documented as of this encounter
--- OUTSIDE RECORDS SUMMARY | 2024-03-28 10:05 | XMS_ITS | Encounter Summary ---
Author Organization [facility] Address [address] [place] [address] Care Team Providers Care Civil Engineer Name Role Phone Jeff Pfeiffer MD Primary Care Provide r Encounter Details Date Type Department Care Team (Late st Contact Info) Description 05/24/2021 Lab Requisition [facility] Pathology & Laboratory Medicine - [facility] [address] [place] [address] Outr Resulting Lab, Provider Social History Tobacco [...] PSA 3.1 <=4.5 ng/mL 05/24/2021 17:35 EDT [facility] Blood VENOUS BLOOD / Unknown 05/23/2021 8:54 EDT 05/24/2021 16:31 EDT Narrative [facility] - 05/24/2021 17:35 EDT NOTE: Serum PSA concentration should not be interpreted as absolute evidence for the presence or absence of malignant disease. Assayed on Siemens ADVIA Centaur XPT using chemiluminescent technology.??Values obtained by using different assay methods cannot be used interchangeably. us Provider Outr Resulting Lab CHEMISTRY & BLOOD GA S ORDERABLES Final Result [facility] [address] [place] [address] documented in this encounter Visit Diagnoses Not on filedocumented in this encounter Care Teams Civil Engineer Relationship Specialty Start Date End Date Jeff Pfeiffer MD [address] [place] [phone] PCP - General 08/27/22 documented as of this encounter
--- OUTSIDE RECORDS SUMMARY | 2024-03-28 10:05 | XMS_ITS | Encounter Summary ---
Author Organization [facility] Address [address] [place] [address] Care Team Providers Care Chemical Unit Operator Name Role Phone Jeff Pfeiffer MD Primary Care Provide r Encounter Details Date Type Department Care Team (Late st Contact Info) Description 05/21/2019 Lab Requisition [facility] Pathology & Laboratory Medicine - [facility] [address] [place] [address] Unknown, Provider, Social History Tobacco Use Types [...] 0.0 - 4.5 ng/mL 05/22/2019 10:00 EDT [facility] Blood VENOUS BLOOD / Unknown 05/20/2019 9:20 EDT 05/21/2019 15:48 EDT Narrative [facility] - 05/22/2019 10:00 EDT NOTE: Serum PSA concentration should not be interpreted as absolute evidence for the presence or absence of malignant disease. Assayed on Siemens ADVIA Centaur XPT using chemiluminescent technology.??Values obtained by using different assay methods cannot be used interchangeably. us Provider Unknown CHEMISTRY & BLOOD GAS ORDERA BLES Final Result [facility] [address] [place] [address] documented in this encounter Visit Diagnoses Not on filedocumented in this encounter Care Teams Chemical Unit Operator Relationship Specialty Start Date End Date Jeff Pfeiffer MD [address] [place] [id number] PCP - General 08/27/22 documented as of this encounter
--- OUTSIDE RECORDS SUMMARY | 2024-03-28 10:05 | XMS_ITS | Encounter Summary ---
Author Organization [facility] Address [address] [place] [address] Care Team Providers Care Silo Man Name Role Phone Jeff Pfeiffer MD Primary Care Provide r Encounter Details Date Type Department Care Team (Late st Contact Info) Description 05/24/2022 Lab Requisition [facility] Pathology & Laboratory Medicine - [facility] [address] [place] [address] Outr Resulting Lab, Provider Social History Tobacco [...] PSA 4.8(H) <=4.5 ng/mL 05/24/2022 22:51 EDT [facility] Blood VENOUS BLOOD / Unknown 05/24/2022 9:15 EDT 05/24/2022 21:39 EDT Narrative [facility] - 05/24/2022 22:51 EDT NOTE: Serum PSA concentration should not be interpreted as absolute evidence for the presence or absence of malignant disease. Assayed on Siemens ADVIA Centaur XPT using chemiluminescent technology.??Values obtained by using different assay methods cannot be used interchangeably. us Provider Outr Resulting Lab CHEMISTRY & BLOOD GA S ORDERABLES Final Result [facility] [address] [place] [address] documented in this encounter Visit Diagnoses Not on filedocumented in this encounter Care Teams Silo Man Relationship Specialty Start Date End Date Jeff Pfeiffer MD [address] [place] [phone] PCP - General 08/27/22 documented as of this encounter
--- OUTSIDE RECORDS SUMMARY | 2024-03-28 10:05 | XMS_ITS | Encounter Summary ---
Author Organization [facility] Address [address] [place] [address] Care Team Providers Care Chief Station Engineer Name Role Phone Jeff Pfeiffer MD Primary Care Provide r Encounter Details Date Type Department Care Team (Late st Contact Info) Description 06/20/2022 Lab Requisition [facility] Pathology & Laboratory Medicine - [facility] [address] [place] [address] Outr Resulting Lab, Provider Social History Tobacco [...] <=4.5 ng/mL 06/20/2022 22:12 EDT [facility] Blood VENOUS BLOOD / Unknown 06/20/2022 10:05 EDT 06/20/2022 21:21 EDT Narrative [facility] - 06/20/2022 22:12 EDT NOTE: Serum PSA concentration should not be interpreted as absolute evidence for the presence or absence of malignant disease. Assayed on Siemens ADVIA Centaur XPT using chemiluminescent technology.??Values obtained by using different assay methods cannot be used interchangeably. us Provider Outr Resulting Lab CHEMISTRY & BLOOD GA S ORDERABLES Final Result [facility] [address] [place] [address] documented in this encounter Visit Diagnoses Not on filedocumented in this encounter Care Teams Chief Station Engineer Relationship Specialty Start Date End Date Jeff Pfeiffer MD [address] [place] [phone] PCP - General 08/27/22 documented as of this encounter
--- NOTE | 2024-03-28 10:06 | ED.GENADUL_ITS ---
Discharge Plan Disposition Patient Disposition: Home Condition: Stable Discharge Details Clinical Impression: Dysuria-frequency syndrome Primary Care Provider: Leroy Berumen ED Provider: Missy Rajput Home Meds and New Rx's Prescriptions: New cephalexin 500 mg capsule 500 mg PO BID 5 Days Qty: 10 0RF Rx Instructions: Please take 1 capsule by mouth twice daily for the next 5 days Continued cholecalciferol (vitamin D3) 25 mcg (1,000 unit) capsule 25 mcg PO DAILY coenzyme Q10 125 mg capsule PO DAILY acyclovir 400 mg tablet 400 mg PO DIRECTED atorvastatin 40 mg tablet 20 mg PO DAILY tamsulosin 0.4 mg capsule 0.8 mg PO DAILY Discharge Instructions Instructions: Urinary Tract Infection, Adult ED Additional Instructions: At this time you do have positive nitrates in your urine which could be an indication you have an infection. This could also be the side effects of your recent radiation therapy. Please continue taking the Pyridium as previously prescribed. Will give you a 5-day course of antibiotics to see if this improves your symptoms. We also did give you a topical lidocaine in the urethra to help your symptoms. Please take Tylenol or Ibuprofen with food every 4-6 hours as needed for pain and swelling. You may alternate Tylenol and ibuprofen every couple of hours. Please follow-up with your urology team or oncology team to discuss possible catheterization and if this is an option for you. At this time I do not feel comfortable giving you a catheter without speaking with your doctor. I do suspect that once the swelling and inflammation goes down your symptoms will improve. Follow up with urologist/oncology/primary care provider in 3-5 days. Return to ED sooner if any worsening fever, vomiting , or concerns. Referrals: Leroy Berumen [Primary Care Provider] - 3 days Discharge Data Discharge Date/Time-TO BE ENTERED AT DEPARTURE: 03/28/24 11:30 HPI General Mode of arrival: ambulatory . Date/Time Provider Initiated Documentation: 03/28/24 09:59 . Limitations to Documentation: no limitations . Information obtained by: patient, RN notes reviewed and old records reviewed . HPI Narrative: 69-year-old male with history of prostate cancer presents with dysuria urinary frequency after finishing radiation treatment to the prostate 4 days ago. He reports that he has had trouble sleeping due to the urinary frequency he reports increased abdominal pressure and pain with urination. Denies any fever or chills he does endorse headache and some diarrhea. Denies any vomiting. He has been taking Pyridium which she says has helped very little. He is requesting catheterization at this time. Other past medical history includes melanoma, oral herpes simplex infection, tibial villous adenoma of colon, rotator cuff tear. Related Data Home Medications ?Medication ?Instructions ?Recorded ?Confirmed acyclovir 400 mg tablet 400 mg PO DIRECTED 03/21/22 03/28/24 cholecalciferol (vitamin D3) 25 25 mcg PO DAILY 03/21/22 03/28/24 mcg (1,000 unit) capsule coenzyme Q10 125 mg capsule mg PO DAILY 03/21/22 03/10/24 atorvastatin 40 mg tablet 20 mg PO DAILY 01/31/23 03/28/24 tamsulosin 0.4 mg capsule 0.8 mg PO DAILY 03/10/24 03/28/24 cephalexin 500 mg capsule 500 mg PO BID UTI 5 days #10 caps 03/28/24 Previous Rx's ?Medication ?Instructions ?Recorded cephalexin 500 mg capsule 500 mg PO BID UTI 5 days #10 caps 03/28/24 Allergies Allergy/AdvReac Type Severity Reaction Status Date / Time No Known Allergies Allergy Verified 03/28/24 09:58 General Stated Complaint: Urinary GAURAV: 3 Review of Systems All systems reviewed & are unremarkable except as noted in HPI and below Exam Narrative Exam Narrative: Constitutional: Alert and oriented x3. Appears stated age. Normal body habitus. Head: Normocephalic, no trauma. Eyes: Pupils PERRL, Red reflex noted, EOM's intact. Eyelids symmetrical without lesions, discharge, or swelling. Chest: RRR, Normal S1, S2, distal pulses intact. Resp: Lungs clear to auscultation bilaterally, no wheezes, rales, or rhonchi. Abdomen: Soft, non-distended, Normoactive bowel sounds all 4 quads. Musculoskeletal: Normal gait, Moves all 4 extremities without difficulty. Skin: No suspicious rashes or lesions. Capillary refill less than 2 sec. Neurologic: Cranial nerves II-XII intact. Alert and oriented x 3. Motor: No deficits noted. Sensory: Intact bilaterally all 4 extremities. Hematologic/Lymphatic: No ecchymosis, no lymphadenopathy. Course Vital Signs Vital signs: Vital Signs Temperature 35.9 C L 03/28/24 09:52 Pulse 78 03/28/24 09:52 Respiratory Rate 18 03/28/24 09:52 Blood Pressure 126/72 03/28/24 09:52 Pulse Oximetry 98 03/28/24 09:52 Temperature 35.9 C L 03/28/24 09:52 Temperature Source Tympanic 03/28/24 09:52 Pulse 78 03/28/24 09:52 Respiratory Rate 18 03/28/24 09:52 Blood Pressure 126/72 03/28/24 09:52 Blood Pressure Position Sitting 03/28/24 09:52 Pulse Oximetry 98 03/28/24 09:52 Oxygen Delivery Method Room Air 03/28/24 09:52 Oxygen Flow Rate 0 03/28/24 09:52 Medical Decision Making 69-year-old male with history of prostate cancer presents with dysuria urinary frequency after finishing radiation treatment to the prostate 4 days ago. He reports that he has had trouble sleeping due to the urinary frequency he reports increased abdominal pressure and pain with urination. Denies any fever or chills he does endorse headache and some diarrhea. Denies any vomiting. He has been taking Pyridium which she says has helped very little. He is requesting catheterization at this time. At this time bladder scan ordered and urinalysis. I am hesitant to insert catheterization due to the recent completion of radiation therapy to the patient's prostate. I do recommend that patient discusses this with his oncology team. Informed by staff midwife/apprenticeship director that postvoid residuals approximately 250 cc, small amount of orange-colored urine obtained patient is taking Pyridium at this time. Ibuprofen 800 mg p.o. ordered, will consider topical lidocaine such as a Uro-Jet but at this time I do not think that catheterization is mckeon. I will refer patient to speak with his urologist or oncology team regarding this. Urinalysis shows 100 protein trace ketone negative blood positive nitrites negative leukocytes 0-2 RBC 0-2 WBCs rare epithelials. Rare bacteria culture is not indicated at this time. However will add on a culture due to the positive nitrites. I do suspect that this is expected post radiation complications of dysuria. Ho wever I will give a weeks worth of antibiotic and instruct patient to follow-up with his urologist/oncology team. Will encourage patient to continue taking the tamsulosin and Pyridium as previously prescribed. This text was generated using Nuance dictation system, please disregard any oddities of phrase or misspellings. Patient remained hemodynamically stable throughout the remainder of his stay. Medical Records Medical records reviewed: Yes I reviewed the patient's medical records. Lab Data Lab results reviewed: Yes I reviewed the patient's lab results. Labs: Laboratory Tests Range/Units 03/28/24 10:34 Urine Color (Yellow) [place] Urine Clarity (Clear) Clear Urine pH (5-8) 5.0 Ur Specific [place] (1.005-1.025) 1.010 Urine Protein (Neg-Trace) mg/dL 100 H Urine Ketones (Negative) mg/dL Trace H Urine Blood (Negative) Negative Urine Nitrite (Negative) Positive H Urine Bilirubin (Negative) Negative Urine Urobilinogen (Up to 0.2) mg/dL 2.0 H Ur Leukocyte Esterase (Negative) Negative Urine RBC (0-2) HPF 0-2 Urine WBC (0-5) HPF 0-2 Ur Epithelial Cells (Negative) HPF Rare Urine Crystals (Negative) HPF Negative Urine Bacteria (Negative) HPF Rare Urine Casts (Negative) LPF Negative Urine Mucus (Negative) Trace Ur Culture Indicated? No Urine Glucose (Negative) mg/dL 100 H Quality:SDOH Health Related Social Needs: No Data to Display PFSH All Active Problems (Updated 03/28/24 @ 11:12 by Missy Rajput NP) Dysuria-frequency syndrome (Acute) Pharyngoesophageal dysphagia (Acute) Chronic cough (Acute) Mass in neck (Acute) Prostate cancer (Chronic) Fracture of rib (Acute) Medical History Melanoma Polymyalgia rheumatica History of malignant melanoma of skin Acute low back pain Oral herpes simplex infection Elevated PSA Tubulovillous adenoma of colon History of melanoma Preventative health care Heavy alcohol consumption Seborrheic dermatitis Nocturia Right groin pain Skin lesion Hyperlipidemia Colon cancer screening Encounter for screening for COVID-19 Herpes simplex Former smoker BPH (benign prostatic hyperplasia) Injury of conjunctiva and corneal abrasion without foreign body, left eye, initial encounter Complete rotator cuff tear Family History Mother Cancer stomach Maternal Grandfather Cancer malignant neoplasm of lung Father Heart disease Paternal Grandfather Disorder of lung Social History Smoking/Tobacco Use Status: Former Tobacco Use Smoking risk assessment performed?: Yes Alcohol Intake: current Alcohol Intake frequency: 0-2 drinks per day Alcohol type: beer Drug use: Never Substance use type: does not use Do you feel safe at home: Yes Do you feel safe in your relationship?: Yes
[2024-03-28] MEDS: Ibuprofen 800 MG TAB PO (10:44)
[2024-03-28 10:45] LABS: Bilirubin Negative (Negative); Blood Negative (Negative); Clarity Clear (Clear); Glucose 100 mg/dL (Negative); Ketones Trace mg/dL (Negative); Leukocyte Esterase Negative (Negative); Nitrite Positive (Negative)
[2024-03-28 11:04] LABS: Bacteria Rare HPF (Negative); C & S Indicated? No; Casts Negative LPF (Negative); Crystals Negative HPF (Negative); Epithelial Cells Rare HPF (Negative); Mucus Trace (Negative); RBC 0-2 HPF (0-2); WBC 0-2 HPF (0-5)
[2024-03-28] MEDS: Lidocaine 2% Jelly 11 ML SYR UR (11:22)
[2024-03-28] MEDS: Cephalexin 500 MG CAP PO (11:22)
[2024-03-28] MEDS: Cephalexin 500 MG CAP, 2 CAPS/BTL PO (11:22)
[2024-03-28 11:28] VITALS: BP 134/79; PULSE 64; RESP 14; TEMP 35.9; O2SAT 97
== END 2024-03-28 11:30 | disposition home or self-care (01) ==
PROVIDERS: Emergency Provider Registered Nurse Emergency; PCP Radiology Radiation Oncology
DX: C61 Malignant neoplasm of prostate; M35.3 Polymyalgia rheumatica; E78.5 Hyperlipidemia, unspecified; Z92.3 Personal history of irradiation; Z87.891 Personal history of nicotine dependence
CPT/HCPCS: 99283; 81003; 81015

== ENCOUNTER 2024-04-10 00:42 | Outpatient (CLI) | payer MEDICARE, SELFPAY ==
[2024-04-13 16:06] LABS: PSA, Ultrasensitive 0.11 ng/mL (<= 4.5)
[2024-04-16 13:12] LABS: Testosterone, Total 10 ng/dL (240-950)
== END 2024-04-10 00:43 | disposition home or self-care (01) ==
PROVIDERS: PCP Radiology Radiation Oncology; Visit Provider Radiology Radiation Oncology
DX: C61 Malignant neoplasm of prostate (principal)
CPT/HCPCS: 36415; 84153; 84403

== ENCOUNTER 2024-05-18 07:03 | Day surgery (SDC) | payer MEDICARE, SELFPAY ==
[2024-05-18] VITALS (24 sets, daily range): BP systolic 90–126; BP diastolic 48–73; PULSE 61–73; RESP 13–18; TEMP 36.2–36.5; O2SAT 95–99; BMI 23.5
[2024-05-18] MEDS: Lactated Ringers 1,000 ML 75 ML IV (07:21)
--- NOTE | 2024-05-18 07:25 | W.ANESPRE ---
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 Meds Allergies and Home Medications Allergies Allergy/AdvReac Type Severity Reaction Status Date / Time No Known Allergies Allergy Verified 05/18/24 07:23 Home Medication ?Medication ?Instructions ?Recorded cholecalciferol (vitamin D3) 25 25 mcg PO DAILY 03/21/22 mcg (1,000 unit) capsule coenzyme Q10 125 mg capsule 125 mg PO DAILY 03/21/22 atorvastatin 40 mg tablet 20 mg PO DAILY 01/31/23 tamsulosin 0.4 mg capsule 0.8 mg PO DAILY 03/10/24 Current Visit Medications: Current Medications Generic Name Dose Route Start Last Admin Trade Name Freq PRN Reason Stop Dose Admin Ringer's Solution 1,000 mls @ 75 mls/hr 05/18/24 06:00 05/18/24 07:21 IV 05/18/24 23:59 75 mls/hr INFUSION JO Administration Tranexamic Acid/Sodium Chloride 1,000 mg in 100 mls @ 600 mls/hr 05/18/24 06:00 IVPB 05/18/24 16:00 PREOP JO IV Miscellaneous Supplies 1 each 05/18/24 06:00 Iv Access IV 05/18/24 23:59 DIRECTED JO Sodium Chloride 0 ml 05/18/24 06:00 Normal Saline Flush 10 Ml Syr IV 05/18/24 23:59 PRN PRN Sodium Chloride 0 ml 05/18/24 06:00 Normal Saline 10 Ml Vial IJ 05/18/24 23:59 DIRECTED PRN Sterile Water 0 ml 05/18/24 06:00 Water,Injection,Sterile 10 Ml Vial IJ 05/18/24 23:59 DIRECTED PRN PFSH Active Problems Active Problems: Problem Status Onset Code Pleomorphic adenoma of submandibular gland Acute D11.9 Pharyngoesophageal dysphagia Acute R13.14 Chronic cough Acute R05.3 Mass in neck Acute R22.1 Prostate cancer Chronic C61 Fracture of rib Acute S22.39XA Medical History Medical History Melanoma Polymyalgia rheumatica History of malignant melanoma of skin Acute low back pain Oral herpes simplex infection Elevated PSA Tubulovillous adenoma of colon History of melanoma Preventative health care Heavy alcohol consumption Seborrheic dermatitis Nocturia Right groin pain Skin lesion Hyperlipidemia Colon cancer screening Encounter for screening for COVID-19 Herpes simplex Former smoker BPH (benign prostatic hyperplasia) Injury of conjunctiva and corneal abrasion without foreign body, left eye, initial encounter Complete rotator cuff tear Surgical History Surgical History (Updated 05/18/24 @ 07:24 by Leonie Wright RN) Hx of inguinal hernia repair Hx of right knee surgery Hx of elbow surgery History of shoulder surgery Tobacco Smoking/Tobacco Use Status: Former Tobacco Use Passive smoking exposure: No Alcohol Alcohol Intake: current Alcohol intake frequency: a few times a week Alcohol type: beer Substance Use Substance use: Rarely Substance use type: marijuana Vital Signs and Lab Results Vital Signs Most Recent Vital Signs in EMR: Most Recent Vital Signs Temp Pulse Resp BP Pulse Ox 36.4 C L 69 16 126/73 98 05/18/24 07:05 05/18/24 07:05 05/18/24 07:05 05/18/24 07:05 05/18/24 07:05 Lab Results Blood Type / Crossmatch: No Data to Display Complete Blood Count: No Data to Display Complete Metabolic Panel: No Data to Display Liver Function Panel: No Data to Display Coagulation Panel: No Data to Display Cardiac Panel: No Data to Display Arterial Blood Gas: No Data to Display Venous Blood Gas: No Data to Display Pancreas Panel: No Data to Display Thyroid Panel: No Data to Display Infectious Disease: No Data to Display Blood Cultures: No Data to Display Toxicology Panel: No Data to Display Anesthesia Assessment and Plan Anesthesia History Personal History: No History of Anesthesia Complications Family History: No Family History of Anesthesia Complications Exercise Tolerance Exercise Tolerance: Metabolic Equivalents>4 Pertinent Negatives Pertinent Negatives: No Major Cardiovascular Symptoms or Complaints, No Major Pulmonary Symptoms or Complaints and No History of CVA/TIA Cardiac & Pulmonary Exam Cardiac Exam: Normal S1/S2 Heart Sounds Pulmonary Exam: Clear Bilateral Breath Sounds Implantable Cardiac Device Does patient have a Pacemaker or an ICD?: No Airway Exam Known Difficult Airway: No Mallampati Class: 3 Mouth Opening: Normal (> 3cm) Thyromental Distance: Greater than 3 cm Neck Range of Motion: Full ROM Neck Circumference: Normal Teeth Condition: Normal Dentition ASA Classification ASA Score: ASA 2 Emergency Case?: No NPO Status NPO Status: NPO Clears >2 hours, Solids >8 hours Anesthesia Plan Resuscitation Status: Full Code Anesthesia Technique: General Anesthesia Airway Planned: Endotracheal Tube Monitors Used: Standard Monitors
--- NOTE | 2024-05-18 07:33 | W.PM.DSUDISC ---
Date of service: 05/18/24 Discharge Plan Disposition Patient Disposition: Home Condition: Good Discharge Details Reason For Visit: Right submandibular gland excision Attending Provider: Mich Martins Primary Care Provider: Leroy Berumen Home Meds and New Rx's Prescriptions: No Action cholecalciferol (vitamin D3) 25 mcg (1,000 unit) capsule 25 mcg PO DAILY coenzyme Q10 125 mg capsule 125 mg PO DAILY atorvastatin 40 mg tablet 20 mg PO DAILY tamsulosin 0.4 mg capsule 0.8 mg PO DAILY Discharge Instructions Additional Instructions: Avoid strenuous activity, no lifting greater than 10 pounds, no driving until you feel neck mobility has returned to normal, no driving for 72 hours regardless, no operating dangerous equipment for 72 hours. The patient should not work from 05/18/2024 till 05/25/2024. He may return to work without restriction thereafter. You may get the wound wet with the bandage intact. Remove bandage tomorrow after your shower. The following day you may get the wound wet directly. Apply bacitracin twice daily for 3 days (but not longer) once the bandages removed Call with any signs of infection, unexpected swelling, or any other concerns You may use ibuprofen or Tylenol for any discomfort. Proceed to the emergency room if you have any difficulty urinating Stand Alone Forms: Anesthesia Discharge Inst., Diamond Morales ([facility]) Referrals: Mich Martins MD [ [facility] STAFF PHYSICIAN] - Activity:: See above Diet:: As Tolerated
[2024-05-18] MEDS: TRANEXAMIC ACID/SOD. CHL. 1,000 MG/100 ML BAG 600 MG IVPB (08:03)
--- NOTE | 2024-05-18 09:10 | GLAND_PTH ---
PATIENT: Rolando Brown LOC: [facility] U#:[id number] AGE/SX: 69/M ROOM: RE05/18/[address]: Mich Martins MD : 1955 BED: DIS: 05/18/2024 SPEC #: [id number] RECD: 05/18/24 13:03 STATUS: SHAZIA REQ #: [id number] JULIO CESAR: 05/18/24 09:[address]: Mich Martins DEPT: Surgical Specimen RECD BY: Nickie Faith ENTERED: 05/18/24 13:06 SP TYPE: Gland OTHR DR: Leroy Berumen Tissues: 1 - SUBMANDIBULAR GLAND(EXCISION) Procedures: GROSS AND MICRO LEVEL 5 Comments: [id number]
[2024-05-18] MEDS: Bacitracin 1 PACKET (09:19)
[2024-05-18] MEDS: Lidocaine 1% Multi-Dose W/EPI 1/100,000 50 ML VIAL (09:20)
--- NOTE | 2024-05-18 09:35 | PDOC.DSDIS_ITS ---
Date of service: 05/18/24 Discharge Plan Disposition Patient Disposition: Home Condition: Good Discharge Details Reason For Visit: Right submandibular gland excision Attending Provider: Mich Martins Primary Care Provider: Leroy Berumen Home Meds and New Rx's Prescriptions: No Action cholecalciferol (vitamin D3) 25 mcg (1,000 unit) capsule 25 mcg PO DAILY coenzyme Q10 125 mg capsule 125 mg PO DAILY atorvastatin 40 mg tablet 20 mg PO DAILY tamsulosin 0.4 mg capsule 0.8 mg PO DAILY Discharge Instructions Additional Instructions: Avoid strenuous activity, no lifting greater than 10 pounds, no driving until you feel neck mobility has returned to normal, no driving for 72 hours regardless, no operating dangerous equipment for 72 hours. The patient should not work from 05/18/2024 till 05/25/2024. He may return to work without restriction thereafter. You may get the wound wet with the bandage intact. Remove bandage tomorrow after your shower. The following day you may get the wound wet directly. Apply bacitracin twice daily for 3 days (but not longer) once the bandages removed Call with any signs of infection, unexpected swelling, or any other concerns You may use ibuprofen or Tylenol for any discomfort. Proceed to the emergency room if you have any difficulty urinating My cell phone number is [phone]. Please call with any questions or concerns. Stand Alone Forms: Anesthesia Discharge Inst., Diamond Morales (U) Referrals: Mich Martins MD [ [facility] STAFF PHYSICIAN] - Activity:: See above Diet:: As Tolerated
--- NOTE | 2024-05-18 09:36 | ROE_ITS ---
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 Options were explained to the patient regarding further management. He elected to undergo the above procedure. Consent was filled and signed prior to the procedure. All questions were answered prior to the procedure. H&P was reviewed. There were no changes. Findings: Right submandibular gland bilobed mass, completely contained within the submandibular gland. Hypoglossal, marginal mandibular and lingual nerve was visualized and preserved. No palpable lymphadenopathy Procedure Description: After obtaining an adequate level of general endotracheal anesthesia the patient was positioned in supine position with his head turned to the left and prepped and draped in appropriate fashion. A skin incision was outlined 2.5 cm below the angle of the mandible, following the direction of his natural skin creases, over the lower edge of the submandibular gland. 15 blade was used to incise the skin and subcutaneous tissues after injecting the area with 1% lidocaine with 1/100,000 epinephrine. The platysma was encountered and divided sharply after elevation of the platysma to avoid damage to the underlying marginal mandibular nerve. The marginal mandibular nerve was identified making a path across the lower edge of the submandibular gland posteriorly to the superior edge of the submandibular gland anteriorly. This was carefully dissected off with the overlying fascia and reflected superiorly. Following this, the submandibular gland was progressively skeletonized. Ligation of the facial artery was not necessary. The lingual nerve was identified in the ganglion was ligated, preserving the lingual nerve. This was done with a 3-0 silk. The gland was pro gressively skeletonized towards the submandibular duct and then the submandibular gland was crossclamped, divided, and then ligated. The wound was inspected revealing no secondary masses. Palpation of the submental soft tissues was then performed revealing no secondary masses or lesions. Wound was inspected revealing no hemostasis. Valsalva to 40 was done with no bleeding. The wound was then closed in a double layer closure consisting of Monocryl's. The first layer was an inverted interrupted closure of the platysma and then a subcuticular closure was also performed.Wound was judged to be well- approximated. Bacitracin and a sterile dressing were applied. The patient was awakened and extubated by anesthesia and taken recovery room in stable condition. I was present throughout the entire case. Date of Procedure: 05/18/24
--- NOTE | 2024-05-18 10:47 | W.ANESPOSTOP ---
Postoperative Evaluation Date, Time and Location Date Performed: 05/18/24 Time Performed: 10:47 Patient Location: Day Surgery Unit Vital Signs Most Recent Imported Vital Signs: Most Recent Vital Signs Temp Pulse Resp BP Pulse Ox 36.3 C L 69 18 124/57 L 97 05/18/24 10:22 05/18/24 10:22 05/18/24 10:22 05/18/24 10:22 05/18/24 10:22 Pain Score Most Recent Pain Score: Most Recent Pain Score Pain Level 0 05/18/24 10:22 Assessment Mental Status: Awake (Alert & Oriented to Patient Baseline) Airway and Respiratory Function: Patent airway with normal (patient baseline) respiratory exam Cardiovascular Function: Hemodynamically Stable Hydration Status: Adequately Hydrated Nausea & Vomiting: No Nausea or Vomiting Pain: Pain is tolerable per patient Peripheral Nerve Block: Patient did not receive a nerve block
== END 2024-05-18 11:16 | disposition home or self-care (01) ==
PROVIDERS: PCP Radiology Radiation Oncology; Visit Provider Otolaryngology
PROC: (CPT 42410; principal; 2024-05-18 08:30)
DX: C08.0 Malignant neoplasm of submandibular gland (principal); R13.14 Dysphagia, pharyngoesophageal phase; R05.3 Chronic cough; M35.3 Polymyalgia rheumatica; E78.5 Hyperlipidemia, unspecified; F10.90 Alcohol use, unspecified, uncomplicated
CPT/HCPCS: 42440; 88307; J0131; J1100; J2003; J2004; J2250; J2405; J2704; J3010

== ENCOUNTER 2024-05-22 15:57 | Outpatient (REF) | payer MEDICARE, SELFPAY ==
[2024-05-22 17:39] LABS: ALT 30 U/L (16-63); AST 25 U/L (15-37); Albumin 4.2 g/dL (3.4-5.0); Alkaline Phosphatase 50 U/L (46-116); Anion Gap 8.7 mmol/L (3-11); BUN 17 mg/dL (7-18); Bilirubin, Total 0.6 mg/dL (0.2-1.0); CO2 31.3 mmol/L (21.0-32.0); Calcium 9.6 mg/dL (8.5-10.1); Calculated LDL 88 mg/dL (<100); Chloride 104 mmol/L (98-107); Cholesterol 178 mg/dL (<200); Estimated GFR 81.47 (mL/min/1.73m2); Glucose 105 mg/dL (74-106); HDL Cholesterol 81 mg/dL (>or=40); Potassium 4.3 mmol/L (3.5-5.1); Sodium 144 mmol/L (136-145); Total Protein 7.2 g/dL (6.4-8.2); Triglyceride 48 mg/dL (<150)
== END 2024-05-22 15:58 | disposition home or self-care (01) ==
LOC: NCHCN 15:57
PROVIDERS: PCP Radiology Radiation Oncology; Visit Provider Family Medicine
DX: E78.5 Hyperlipidemia, unspecified (principal)
CPT/HCPCS: 80053; 80061

== ENCOUNTER 2024-10-15 04:11 | Outpatient (CLI) | payer MEDICARE, SELFPAY | END 2024-10-15 04:12 | disposition home or self-care (01) | LOC: LBO 04:11 | PROVIDERS: PCP Radiology Radiation Oncology; Visit Provider Radiology Radiation Oncology | DX: C61 Malignant neoplasm of prostate (principal) | CPT/HCPCS: 36415; 84153; 84403 ==

== ENCOUNTER 2024-12-03 16:18 | Outpatient (REF) | payer MEDICARE, SELFPAY ==
[2024-12-03 20:58] LABS: HCT 41.4 % (40.0-50.0); HGB 13.8 g/dL (13.5-17.5); MCH 30.7 pg (27.0-33.0); MCHC 33.3 % (32.0-36.0); MCV 92 fL (80-95); MPV 10.9 fL (8.0-11.0); Platelet Count 181 10^3/uL (130-400); RBC 4.49 10^6/uL (4.36-5.78); RDW 13.4 % (11.8-14.1); RDW-SD 46.0 fL; WBC 4.64 10^3/uL (4.4-10.8)
[2024-12-03 21:30] LABS: ALT 31 U/L (16-63); AST 25 U/L (15-37); Albumin 4.1 g/dL (3.4-5.0); Alkaline Phosphatase 44 U/L (46-116); Anion Gap 8.9 mmol/L (3-11); BUN 15 mg/dL (7-18); Bilirubin, Total 0.3 mg/dL (0.2-1.0); CO2 29.1 mmol/L (21.0-32.0); Calcium 8.8 mg/dL (8.5-10.1); Chloride 103 mmol/L (98-107); Estimated GFR 92.45 (mL/min/1.73m2); Glucose 92 mg/dL (74-106); Potassium 4.1 mmol/L (3.5-5.1); Sodium 141 mmol/L (136-145); TSH (W/Ref FT4) 1.58 uIU/mL (0.36-3.74); Total Protein 6.9 g/dL (6.4-8.2); Vitamin B12 287 pg/mL (193-986)
== END 2024-12-03 16:19 | disposition home or self-care (01) ==
LOC: NCHCN 16:18
PROVIDERS: PCP Radiology Radiation Oncology; Visit Provider Family Medicine
DX: E78.5 Hyperlipidemia, unspecified (principal); R41.89 Other symptoms and signs involving cognitive functions and awareness; R14.0 Abdominal distension (gaseous)
CPT/HCPCS: 80053; 85027; 82607; 84443

== ENCOUNTER 2024-12-04 11:13 | Outpatient (REF) | payer MEDICARE, SELFPAY | END 2024-12-04 11:14 | disposition home or self-care (01) | LOC: NCHCN 11:13 | PROVIDERS: PCP Radiology Radiation Oncology; Visit Provider Family Medicine | DX: R41.89 Other symptoms and signs involving cognitive functions and awareness (principal); E78.5 Hyperlipidemia, unspecified | CPT/HCPCS: 87015; 87269; 87272 ==

== ENCOUNTER 2024-12-10 08:55 | Emergency (ER) | payer MEDICARE, SELFPAY ==
[2024-12-10 08:56] VITALS: BP 113/84; PULSE 73; RESP 15; TEMP 36.7; O2SAT 97
--- NOTE | 2024-12-10 08:59 | W.ED.GENAD ---
Discharge Plan Disposition Patient Disposition: Home Discharge Details Clinical Impression: SARS-CoV-2 positive Primary Care Provider: Leroy Berumen ED Provider: Bart Stratton Home Meds and New Rx's Prescriptions: Continued cholecalciferol (vitamin D3) 25 mcg (1,000 unit) capsule 25 mcg PO DAILY coenzyme Q10 125 mg capsule 125 mg PO DAILY atorvastatin 40 mg tablet 20 mg PO DAILY tamsulosin 0.4 mg capsule 0.8 mg PO DAILY Discharge Instructions Additional Instructions: You are seen in the emergency department for your dry cough. You are found to have COVID. As we discussed if you develop worsening shortness of breath chest pain nausea or vomiting that does not stop or if you have any other concerns please return to the emergency department. You will receive a callback if any of your send out labs returned abnormal. HPI General Date/Time Provider Initiated Documentation: 12/10/24 08:59. HPI Narrative: MDM This is a quite well-appearing normothermic and not tachycardic 69-year-old male with concerns for respiratory symptoms secondary to zoonotic infection with reported concerns for hantavirus and leptospirosis. Patient is quite well-appearing and has no focal lung abnormalities. Nonetheless we will obtain chest x-ray and swab for COVID influenza and RSV. I considered sepsis however given patient's reassuring vitals I do not order lactate nor blood cultures. Patient denying chest pain so doubt ACS so I did not order ECG. He is low risk for PE however given tightness of chest with some shortness of breath will obtain D-dimer to assess for PE. No focal neurological deficits to suggest posterior circulation CVA so do not feel that he would be a TNK candidate nor did he require an MRI. He has not been vomiting and his headache is resolved so I am not suspicious for subarachnoid hemorrhage I do not feel he required CT scan of his head nor lumbar puncture. He is normothermic with no nuchal rigidity so my suspicion is low for meningitis. No dysuria or frequency to suggest UTI. No abdominal pain to suggest intra-abdominal infection. Will reassess following labs. 10:13 AM ECG showing normal sinus rhythm with no acute injury pattern. Intervals within normal limits. CBC lacks anemia and thrombocytopenia and leukocytosis. 10:27 AM Reassuring comprehensive metabolic panel no SARAH. Reassuring normal LDH. Chest x-ray on my preliminary interpretation shows no acute cardiopulmonary abnormalities. Patient was found to be COVID-positive. He has had COVID infections in the past. He is not vaccinated against COVID. We discussed that he should return to the ED if he developed any worsening shortness of breath nausea or vomiting nonstop or any chest pain. He requests an inhaler which I ordered. HPI This is a patient presenting with respiratory symptoms. On 12/06/2024, the patient was exposed to a rat-infested storage unit. Two days later, on 12/08/2024, he began experiencing respiratory symptoms. Initially, he developed a headache that lasted for 24 to 36 hours, accompanied by a temperature of approximately 99.2?F. He also reported chest tightness and significant coughing, which was particularly severe last night and continued intermittently through the night. The cough is less pronounced when he is upright but intensifies when he lies down. Additionally, he experienced dizziness, especially in the morning of 12/09/2024, and flu-like symptoms. He is concerned about potential exposure to hantavirus. He reports no current dizziness, weakness in his hands, or history of blood clots in his legs or lungs. He mentions a sensation of fluid in his chest but no current shortness of breath. He has not experienced any rashes. He has been managing his symptoms with Tylenol, DayQuil, and NyQuil, which have alleviated his headache. He reports intermittent abdominal pain but has not experienced any vomiting. Exam General: Well-appearing in no acute distress speaking in complete sentences. Head: Normocephalic, atraumatic. Eye:[Pupils equal, round reactive to light.] Extraocular eye movements intact. No conjunctival injection. No scleral icterus. Ear, nose, mouth, throat: Grossly normal inspection. Normal voice, handling secretions normally. Neck: Trachea midline. Cardiovascular: Well-perfused distal extremities. Regular rate and rhythm Respiratory: Nonlabored respiration. Clear lungs bilaterally. Gastrointestinal: Nondistended abdomen. Musculoskeletal: No edema. Moving all 4 extremities spontaneously. Skin: Normal for age and race, grossly normal temperature and turgor. No acute rash. Neurologic: Alert and appropriate, no apparent acute deficits. GCS 15. Cranial nerves II through XII intact grossly. 5 out of 5 bilateral upper and lower extremity strength. Psychiatric: Mood and manner are appropriate. Grooming and personal hygiene are appropriate. Related Data Home Medications ?Medication ?Instructions ?Recorded ?Confirmed cholecalciferol (vitamin D3) 25 25 mcg PO DAILY 03/21/22 12/10/24 mcg (1,000 unit) capsule coenzyme Q10 125 mg capsule 125 mg PO DAILY 03/21/22 12/10/24 atorvastatin 40 mg tablet 20 mg PO DAILY 01/31/23 12/10/24 tamsulosin 0.4 mg capsule 0.8 mg PO DAILY 03/10/24 12/10/24 Allergies Allergy/AdvReac Type Severity Reaction Status Date / Time No Known Allergies Allergy Verified 12/10/24 09:04 General GAURAV: 3 PFSH All Active Problems (Updated 12/10/24 @ 10:49 by Bart Stratton MD) SARS-CoV-2 positive (Acute) Pleomorphic adenoma of submandibular gland (Acute) Pharyngoesophageal dysphagia (Acute) Chronic cough (Acute) Mass in neck (Acute) Prostate cancer (Chronic) Fracture of rib (Acute) Medical History Melanoma Polymyalgia rheumatica History of malignant melanoma of skin Acute low back pain Oral herpes simplex infection Elevated PSA Tubulovillous adenoma of colon History of melanoma Preventative health care Heavy alcohol consumption Seborrheic dermatitis Nocturia Right groin pain Skin lesion Hyperlipidemia Colon cancer screening Encounter for screening for COVID-19 Herpes simplex Former smoker BPH (benign prostatic hyperplasia) Injury of conjunctiva and corneal abrasion without foreign body, left eye, initial encounter Complete rotator cuff tear Surgical History H/O neck surgery Right submandibular gland excision for pleomorphic adenoma (05/18/2024) Hx of inguinal hernia repair Hx of right knee surgery Hx of elbow surgery History of shoulder surgery Family History Mother Cancer stomach Maternal Grandfather Cancer malignant neoplasm of lung Father Heart disease Paternal Grandfather Disorder of lung Social History Smoking/Tobacco Use Status: Former Tobacco Use Quit Date: 02/18/89 Smoking risk assessment performed?: Yes Alcohol Intake: current Alcohol Intake frequency: a few times a week Alcohol type: beer Drug use: Rarely Substance use type: marijuana Housing: house Do you feel safe at home: Yes Do you feel safe in your relationship?: Yes
[2024-12-10 09:03] VITALS: BP 113/84; PULSE 73; RESP 15; TEMP 36.7; O2SAT 97
--- NOTE | 2024-12-10 09:15 | DI.RAD_ITS ---
Exam(s) XR CHEST 2V PA LATERAL EXAM: XR CHEST 2V PA LATERAL CLINICAL HISTORY: Shortness of breath TECHNIQUE: 2D digital imaging was performed of the chest. Two images were obtained. PA and lateral views were obtained. COMPARISON: CR,XR XR RIBS LT W PA LAT CHEST from 10/24/2020 CR XR CHEST 2V PA LATERAL from 02/27/2024 FINDINGS: MEDIASTINUM: Normal. HEART: Normal. PULMONARY VASCULATURE: Normal. LUNGS: Clear. PLEURAL SPACE: No pleural effusion or pneumothorax. BONE:Within normal limits for the patient's age. OTHER FINDINGS:Normal. IMPRESSION: No acute pulmonary findings. DATA REPOSITORY: RADIATION DOSE DELIVERED:
--- NOTE | 2024-12-10 09:30 | RT.EKG_ITS ---
APPROVED REPORT Exam: Resting ECG Reason for Exam: Dizziness/Chest Tightness Patient Location: E HR:62 bpm ECG Measurements Heart Rate [address] 145 P 61 QRSd 80 QRS 56 QT 425 T 73 QTc 432 Conclusion Sinus rhythm...normal P axis, V-rate 60- 99 No Occlusion AL
[2024-12-10 09:53] LABS: Abs Immature Grans 0.02 10^3/uL (0.0-0.06); HCT 43.5 % (40.0-50.0); HGB 14.3 g/dL (13.5-17.5); Immature Grans % 0.4 %; MCH 30.3 pg (27.0-33.0); MCHC 32.9 % (32.0-36.0); MCV 92 fL (80-95); MPV 10.1 fL (8.0-11.0); Platelet Count 156 10^3/uL (130-400); RBC 4.72 10^6/uL (4.36-5.78); RDW 13.4 % (11.8-14.1); RDW-SD 46.2 fL; WBC 5.48 10^3/uL (4.4-10.8)
[2024-12-10 10:10] LABS: ALT 25 U/L (16-63); AST 19 U/L (15-37); Albumin 4.0 g/dL (3.4-5.0); Alkaline Phosphatase 53 U/L (46-116); Anion Gap 10.2 mmol/L (3-11); BUN 11 mg/dL (7-18); Bilirubin, Total 0.5 mg/dL (0.2-1.0); CO2 29.8 mmol/L (21.0-32.0); Calcium 9.0 mg/dL (8.5-10.1); Chloride 103 mmol/L (98-107); Estimated GFR 92.45 (mL/min/1.73m2); Glucose 93 mg/dL (74-106); LDH 128 U/L (85-227); Potassium 3.7 mmol/L (3.5-5.1); Sodium 143 mmol/L (136-145); Total Protein 7.2 g/dL (6.4-8.2)
[2024-12-10 10:21] LABS: RSV PCR Negative (Negative)
[2024-12-10 10:23] LABS: COVID-19 PCR Positive (Negative)
[2024-12-10] MEDS: Albuterol HFA 8 GM 60 PUFF INH IH (11:18)
[2024-12-10 11:38] LABS: D-Dimer 323 ng/mlFEU (<500)
[2024-12-10 11:57] VITALS: BP 134/86; PULSE 75; RESP 15; O2SAT 99
[2024-12-12 15:15] LABS: Leptospira IgM, S Negative (Negative)
--- NOTE | 2024-12-17 10:42 | NUR.NOTE ---
Access chart to determine antibiotic on discharge for hantavirus and leptospira test results. Results given to provider. Nursing Note:
== END 2024-12-10 12:04 | disposition home or self-care (01) ==
PROVIDERS: Emergency Provider Emergency Medicine; PCP Radiology Radiation Oncology
DX: U07.1 COVID-19 (principal); M35.3 Polymyalgia rheumatica; Z87.891 Personal history of nicotine dependence
CPT/HCPCS: 36415; 80053; 86790; 87637; 93005; 99283; 71046; 83615; 85025; 85379; 86720; 93010